=== PATIENT | male | born 1955 | race Caucasian/White ===

== ENCOUNTER 2022-05-12 09:53 | Emergency (ER) | payer OTHER, SELFPAY ==
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
[2022-05-12 09:56] VITALS: BP 148/79; PULSE 92; RESP 18; TEMP 36.6; O2SAT 98; BMI 24.3
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
[2022-05-12] MEDS: Acetaminophen 325 MG TABLET 975 MG PO (12:15)
== END 2022-05-12 13:45 | disposition home or self-care (01) ==
PROVIDERS: Emergency Provider Emergency Medicine Emergency Medical Services; PCP Nurse Practitioner Family
DX: S40.012A Contusion of left shoulder, initial encounter (principal); S20.212A Contusion of left front wall of thorax, initial encounter; M25.512 Pain in left shoulder; R51.9 Headache, unspecified; M54.2 Cervicalgia; R07.89 Other chest pain; V43.52XA Car driver injured in collision with other type car in traffic accident, initial encounter; Y93.9 Activity, unspecified; Y92.410 Unspecified street and highway as the place of occurrence of the external cause; Y99.9 Unspecified external cause status
CPT/HCPCS: 71250; 73030; 99283; 99284

== ENCOUNTER 2024-03-21 00:04 | Emergency (ER) | payer MEDICARE, OTHER, SELFPAY ==
--- NOTE | ~2024-03-21 | XR_ITS ---
EXAMINATION: XR CHEST CLINICAL INFORMATION: Chest and back pain COMPARISON: Chest CT on 05/12/2022 TECHNIQUE: 2 views of the chest were obtained. FINDINGS: No significant abnormality is noted involving the heart, lungs, mediastinum, bony thorax or soft tissues. XR/XR chest 2V IMPRESSION: Unremarkable examination. Electronically signed by: Alexus Arellano MD 03/21/2024 05:17 AM EDT RP
[2024-03-21 00:14] VITALS: BP 166/74; PULSE 85; O2SAT 95
[2024-03-21 00:18] VITALS: BP 121/70; PULSE 80; RESP 16; TEMP 36.6; O2SAT 98
--- NOTE | 2024-03-21 00:19 | MHC.EDTECH ---
pt arrived by ambulance. pt changed into a hospital gown Vital Signs completed
[2024-03-21 00:20] VITALS: BMI 25.9
[2024-03-21 02:54] VITALS: BP 122/73; PULSE 74; RESP 14; TEMP 36.5; O2SAT 96
--- NOTE | 2024-03-21 05:02 | ED_ITS ---
HPI - General Adult General Chief complaint: Back Pain/Injury Stated complaint: BACK/LEFT ARM PAIN// ALTERED MENTAL Time Seen by Provider: 03/21/24 05:02 Source: patient and EMS Limitations: altered mental status History of Present Illness ED Provider: Dr. Iraheta HPI narrative: Patient with anxiety and chronic pain who woke up with a severely dry mouth and got very upset and anxious and called an ambulance. Patient denies new medication, has suffered from dry mouth in the past but never this bad. Onset (ago): hour(s) Related Data Allergies Allergy/AdvReac Type Severity Reaction Status Date / Time No Known Allergies Allergy Verified 03/21/24 00:23 Review of Systems 2 Review of Systems: Yes all other systems are reviewed and are negative Neurologic: Denies Sensory deficit (Neuro) PMFSH Social History Social History Smoked in Last 30 Days: No Use of substances other than those prescribed or required for medical reasons: No Advance Directives: No Advance Directives Information Provided: No Do you have a plan to hurt others: No Plan Physical Exam ED Vital Signs: Vital Signs - 24 hr 03/21/24 00:18 03/21/24 02:54 03/21/24 05:30 Temperature 97.9 F 97.7 F 97.8 F Pulse Rate 80 74 75 Respiratory Rate 16 14 16 Blood Pressure 121/70 122/73 149/82 H Pulse Oximetry 98 96 98 Oxygen Delivery Method Room Air Room Air Room Air 03/21/24 06:35 Temperature 98.2 F Pulse Rate 80 Respiratory Rate 15 Blood Pressure 128/75 Pulse Oximetry 97 Oxygen Delivery Method Room Air BMI result Body Mass Index 25.9 Const Other: anxious male trying to clear his mouth Nutritional Appearance: average body habitus Orientation/consciousness: oriented to person and patient oriented x3 Limitations: no limitations HENMT Other: severely dry oral mucosa Head: Yes normal to inspection Ears: external ears normal General nose exam: Normal external nose present Throat: Yes posterior oropharynx normal Eyes General: appearance normal, both eyes and all related structures Neck Neck: Yes normal visual inspection Chest Chest palpation & inspection: normal inspection of the chest Resp Auscultation: clear to auscultation bilaterally Cardio Jugular venous distension: no JVD Rate: regular rate Rhythm: regular rhythm Heart sounds: S1 normal heart sound present and S2 normal heart sound present GI Inspection: Yes normal to inspection Palpation (GI): Soft to palpation, nontender and No hepatosplenomegaly present Auscultation: normal bowel sounds General: Yes no CVA tenderness Back/Spine/Pelvis Back: no CVA tenderness Skin General skin exam: no rashes or lesions noted Neuro General: oriented to person and patient oriented x3 Cranial nerves: Yes CN's II-XII intact bilaterally Motor exam (neuro): 5/5 motor strength present throughout Sensory Exam: No Sensory deficit (Neuro) Extrem General: Yes normal to inspection Psych Appearance: grossly normal Course Reevaluation(s) Reevaluation #1: Patient more relaxed, no evidence of pneumonia, cardiac ischemia will dc home Time: 07:11 Medical Decision Making Differential Diagnosis Differential Diagnoses: The differential diagnosis associated with the presentation includes (anxiety, cardiac ischemia, pneumonia, dry mouth, muscular skeletal pain) Admission/Observation Consideration of admission/observation: Escalation of care including admission/observation considered (upon arrival patient was considered for admission) Lab Data 03/21/24 05:21 03/21/24 05:21 Labs: Lab Results 03/21/24 Range/Units 05:21 WBC 5.8 (4.8-10.8) X10*3/uL RBC 4.43 L (4.60-5.80) X10*6/uL Hgb 14.4 (14.0-18.0) g/dl Hct 41.0 L (42.0-52.0) % MCV 92.6 (80.0-98.0) fL MCH 32.5 (27.0-33.0) pg MCHC 35.1 (31.0-36.0) g/dl RDW 12.8 (11.0-16.0) % Plt Count 177 (160-400) X10*3/uL MPV 8.8 L (9.4-12.4) fL Immature Gran % (Auto) 0.2 (0.0-0.4) % Neut % (Auto) 39.7 L (45-73) % Lymph % (Auto) 46.0 H (20-40) % [place] % (Auto) 10.5 (2-11) % Eos % (Auto) 3.1 (0-4) % Baso % (Auto) 0.5 (0-2) % Lymph # (Auto) 2.7 (1.2-4.9) X10*3/uL [place] # (Auto) 0.6 (0.1-1.2) X10*3/uL Eos # (Auto) 0.2 (0.0-0.4) X10*3/uL Baso # (Auto) 0.0 (0.0-0.2) X10*3/uL Abs Immat Gran (auto) 0.01 (0.00-0.03) X10*3/uL Absolute Neuts (auto) 2.3 (2.0-8.3) x10*3/uL Absolute Nucleated RBC 0.000 (0.0-0.012) X10*3/uL Nucleated RBC % (auto) 0.0 (0.0-0.2) /100WBC Sodium 140 (135-145) mmol/L Potassium 4.2 (3.3-5.1) mmol/L Chloride 107 (96-108) mmol/L Carbon Dioxide 22 (22-29) mmol/L Anion Gap 15 (12-20) BUN 26 H (9-16) mg/dL Creatinine 0.96 (0.5-1.4) mg/dL Estim Creat Clear Calc 74.9 Estimated GFR > 60 Random Glucose 125 H (60-115) mg/dL Calcium 9.4 (8.4-10.2) mg/dL Troponin I High Sens 7.6 (<3.5-35.0) ng/L Independent Interpretation I performed an independent interpretation of an: EKG (sinus 64, no st or twave changes) and Plain X-Ray (CXR: no infiltrate) Independent Historian Clinical information obtained from an independent historian. History obtained from or confirmed by: Spouse and EMS Prescription Management I considered prescription management with: Antibiotic (no evidence of pneumonia) Chronic Conditions Patient?s care impacted by: Other (psychiatric and anxiety) Discharge Plan Discharge Clinical Impression: Myalgia, Dry mouth Patient Disposition: Home, Self-Care Instructions: Dry Mouth (ED), Musculoskeletal Pain (ED) Referrals: Physician,Unknown J [Primary Care Provider] - 3 days Print Language: Mauritanian
--- NOTE | 2024-03-21 05:03 | ECG_ITS ---
Test Reason : CHEST AND BACK PAIN Blood Pressure : / mmHG Vent. Rate : 064 BPM Atrial Rate : 064 BPM P-R Int : 184 ms QRS Dur : 080 ms QT Int : 384 ms P-R-T Axes : 059 054 075 degrees QTc Int : 396 ms Normal sinus rhythm Normal ECG No previous ECGs available Referred By: James Iraheta Electronically Signed By:ULYSSES SHAFFER
[2024-03-21 05:25] LABS: Basophils Percent Auto 0.5 % (0-2); Eosinophils Absolute Auto 0.2 X10*3/uL (0.0-0.4); Eosinophils Percent Auto 3.1 % (0-4); Hemoglobin 14.4 g/dl (14.0-18.0); Imm Gran Abs Auto 0.01 X10*3/uL (0.00-0.03); Imm Gran Pct Auto 0.2 % (0.0-0.4); Lymphocytes Absolute Auto 2.7 X10*3/uL (1.2-4.9); MANUAL DIFF FLAG NO; Mean Corpuscular HGB Conc 35.1 g/dl (31.0-36.0); Mean Corpuscular Hemoglobin 32.5 pg (27.0-33.0); Mean Corpuscular Volume 92.6 fL (80.0-98.0); Mean Platelet Volume 8.8 fL (9.4-12.4); Monocytes Absolute Auto 0.6 X10*3/uL (0.1-1.2); Monocytes Percent Auto 10.5 % (2-11); Neutrophils Absolute Auto 2.3 x10*3/uL (2.0-8.3); Neutrophils Percent Auto 39.7 % (45-73); Platelet Count 177 X10*3/uL (160-400); Red Blood Count 4.43 X10*6/uL (4.60-5.80); Red Cell Distribution Width 12.8 % (11.0-16.0); White Blood Count 5.8 X10*3/uL (4.8-10.8)
[2024-03-21 05:30] VITALS: BP 149/82; PULSE 75; RESP 16; TEMP 36.6; O2SAT 98
[2024-03-21 05:36] LABS: Anion Gap 15 (12-20); Blood Urea Nitrogen 26 mg/dL (9-16); Calcium 9.4 mg/dL (8.4-10.2); Carbon Dioxide 22 mmol/L (22-29); Chloride 107 mmol/L (96-108); Creatinine Clr Calc Pharmacy 74.9; Estimated Glomerular Filt Rate > 60; Glucose Random 125 mg/dL (60-115); Potassium 4.2 mmol/L (3.3-5.1); Sodium 140 mmol/L (135-145)
[2024-03-21 05:44] LABS: Troponin-I High Sensitivity 7.6 ng/L (<3.5-35.0)
[2024-03-21 06:35] VITALS: BP 128/75; PULSE 80; RESP 15; TEMP 36.8; O2SAT 97
[2024-03-21 07:59] VITALS: BP 120/78; PULSE 78; RESP 14; TEMP 36.6; O2SAT 97
== END 2024-03-21 08:00 | disposition home or self-care (01) ==
PROVIDERS: Emergency Provider Emergency Medicine
DX: M54.50 Low back pain, unspecified (principal); M79.602 Pain in left arm; R41.82 Altered mental status, unspecified; R07.89 Other chest pain; Z79.899 Other long term (current) drug therapy
CPT/HCPCS: 36415; 71046; 80048; 84484; 85025; 93005; 99283; 99284

== ENCOUNTER 2024-07-31 09:55 | Outpatient (AMB) | payer MEDICARE, OTHER, SELFPAY ==
[2024-07-31 10:00] VITALS: BP 134/80; PULSE 76; O2SAT 99; BMI 27.1
--- NOTE | 2024-07-31 10:00 | MHC.OFFVIS ---
Vital Signs 07/31/24 10:00 Height 5 ft 10 in Weight 189 lb 2.506 oz BMI 27.1 BP 134/80 Blood Pressure Location Lt brachial Position Sitting Pulse 76 Pulse Source Pulse Oximeter Pulse Oximetry (%) 99 Oxygen Delivery Method Room Air Intake Visit Reasons: Colonoscopy Screening Intake Note: NEW PATIENT Reason; in office colo scrn Prior hx of colo/egd? Y via [facility] > 5 years ago. No records found on [employer] Concerns/Questions? No significant sx or concerns per pt. Pharmacy verified? [facility] Allergies No Known Allergies Allergy (Verified 07/31/24 10:01) HPI HPI Colonoscopy Screening: Details: 68 year old? male with past medical history of hyperlipidemia, chronic back pain, prostate atrophy, anxiety is here today for pre colonoscopy screening.? Last colonoscopy patient believes was in 2018.? ? Patient denies any gastrointestinal symptoms in the past or at present.? Denies any personal or family history of gastrointestinal disease, colon polyps, or CRC.? Denies history of difficulty with sedation or anesthesia in the past.? Negative for history of sleep apnea, however patient will be going for sleep study. Patient snores heavily when sleeping.? Denies any history of cardiac, renal, pulmonary, or hepatic disease.?? No history of infectious? diseases like hepatitis A, B, C, HIV or tuberculosis.? Patient is not on any anticoagulation [facility] Medical History (Updated 07/31/24 @ 10:20 by Lexie Talbot, [facility]) Anxiety disorder Chronic back pain Prostate atrophy Hernia of abdominal wall Hyperlipidemia Surgical History (Updated 07/31/24 @ 10:09 by Jimbo Molina, [facility]) H/O colonoscopy (~2017) Vasectomy status Review of Systems Const Denies weight gain and Denies weight loss ENT Reports no additional complaints, Denies dysphagia and Denies odynophagia Card Reports no additional complaints Resp Reports no additional complaints GI Denies abdominal pain, Denies belching, Denies melena, Denies bloating, Denies change in bowel habits, Denies dysphagia, Denies excessive flatus, Denies dyspepsia, Denies heartburn, Denies diarrhea, Denies loose stools, Denies nausea, Denies odynophagia and Denies vomiting Reports no additional complaints Musc Reports no additional complaints Neuro Reports no additional complaints Psych Reports no additional complaints Endo Reports no additional complaints Physical Exam Vital Signs: Last Vital Signs Pulse 76 07/31/24 10:00 BP 134/80 07/31/24 10:00 Pulse Ox 99 07/31/24 10:00 Oxygen Delivery Method Room Air 07/31/24 10:00 BMI result Body Mass Index 27.1 Const General: healthy appearing, no acute distress and well developed Nutritional Appearance: well nourished Orientation/consciousness: patient oriented x3 Resp Effort & Inspection: normal respiratory effort, able to speak in complete sentences, no tracheal deviation and symmetric chest movement Auscultation: clear to auscultation bilaterally Cardio Rate: regular rate GI Inspection: Yes normal to inspection and No distended Palpation (GI): Soft to palpation, not firm, nontender and No hepatosplenomegaly present Auscultation: normal bowel sounds General: Yes no CVA tenderness Back/Spine/Pelvis Back: no CVA tenderness Skin General skin exam: elasticity normal, turgor normal and dry skin Neuro General: patient oriented x3 Psych Appearance: grossly normal Mental Status: mental status grossly normal Assessment & Plan Assessment & Plan (1) Screen for colon cancer: Code(s): Z12.11 - Encounter for screening for malignant neoplasm of colon Plan Patient denies any GI, cardiac or respiratory symptoms.? Denies any issues with anesthesia in the past.? Denies any history of sleep apnea.? No history infectious diseases in the past or present.? Not on any anticoagulation therapy.? No family or personal history of colon cancer.? Patient denies melena, hematochezia, unintentional weight loss or ribbon like stools.? Discussed at length the pre-procedure,? prep, diet & medications as well as what to expect prior, during and after the procedure.?? Stressed the importance of good bowel prep.? Recommended the use of Vaseline or Calmoseptine OTC & baby wipes with bowel movements to promote comfort.? ?Patient verbalizes understanding and agrees to plan of care.? He was given the opportunity to ask questions and all questions answered.? We will see him after the procedure.? Medications: New bisacodyl (Dulcolax (bisacodyl)) take 4 tabs at noon the day before your colonoscopy 20 mg (4 x 5 mg) PO ONCE 1 day 4 tabs 0RF Z12.11 - Encounter for screening for malignant neoplasm of colon polyethylene glycol 3350 (Miralax) As directed by gastroenterology department at [facility] 238 grams PO ONCE 238 grams 0RF Z12.11 - Encounter for screening for malignant neoplasm of colon Coding Level of Care Code New Pt Level 3 (34699) Diagnoses Screen for colon cancer Z12.11 Time Spent (min) 40 Comment 30 minutes spent with patient and additional 10 minutes spent reviewing his records
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
--- OUTSIDE RECORDS SUMMARY | 2024-07-31 10:36 | XMS_ITS ---
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 Spec WBC RBC HGB HCT MCV MCH PLT 06/16/2023 10:27 BLOOD 7.13 5.16 16.0 48.0 93.0 31.0 247 09/11/2021 09:00 BLOOD 6.22 5.32 16.6 49.5 93.0 31.2 223 = CHEM 7 Results Collection DT Spec Sodium K+/Pot CL CO2 GLUCOSE BUN 06/16/2023 10:27 SERUM 138 5.0 102 28 109 H 16 09/11/2021 09:00 SERUM 138 4.5 102 27 102 H 16 = LIPID PANEL TREND Collection DT Spec CHOL HDL CHO/HDL LDL-c TRIG 06/16/2023 10:27 SERUM 221 H 40 5.5 129 260 H 09/11/2021 09:00 SERUM 244 H 40 6.1 162 H 212 H = = THYROID PANEL Collection DT Specimen Test Name Result Units Ref Range 06/16/2023 10:27 SERUM TSH 2.06 uIU/mL 0.35 - 5.00 = PSA Collection DT Specimen Test Name Result Units Ref Range 09/11/2021 09:00 SERUM PSA 1.60 ng/mL 0.00 - 4.00 = ==== ASSESSMENT AND PLAN ==== Active problems - Computerized Problem List is the source for the followin. Diarrhea - x 1 week, no red flags. suspect med side effect (started when increased sertaline from 50 to 100 mg). will do labs- LFTs, BMP, CBC. Advised to reduce sertaline back to 50 mg daily until issue resolves. Discussed allow 3-4 days of normal bowel movements prior to increasing back up to 100 mg daily. will coordnate with MH. 2. Nausea- mild- will add zofran. Continue with BRAT diet 3. increased urinartion- no burning. prev mildly elevated blood suagrs- will check u/a and HbA1c 4. Dehydration- recommend hydrating well ove rht enext 5-6 days. ==== HEALTH MAINTENANCE ==== Colonoscopy - up to date through PCP Aortic Aneurysm Screening - n/a never smoker Prostate screening - n/a - sees urology, s/p turp Tetanus: due every 10 years Pneumonia Vacccine: Flu Vaccine: due yearly Covid Vaccine: due yearly ==== FOLLOW UP ==== RTC if no improvement in 2 weeks VISIT TYPE: a MODERATE complexity visit where 30 - 45 minutes was spent in direct patient care, review of records and documentation. /monisha/ MELBA DONATO D.O. PHYSICIAN Signed: 08/02/2023 12:11 08/02/2023 ADDENDUM STATUS: COMPLETED please see A/P section- I reducued sertaline to 50 mg to see if helps with new onset diarrhea. /monisha/ MELBA DONATO D.O. PHYSICIAN Signed: 08/02/2023 12:11 Receipt Acknowledged By: * AWAITING SIGNATURE * JOSE F STILL TINA [facility] [place] [facility] Aug 02, 2023 11:23 AM PREVENTIVE MEDICIN E NURSING NOTE: LOCAL TITLE: CLINICAL REMINDERS/NURSING STANDARD TITLE: PREVENTIVE MEDICINE NURSING NOTE DATE OF NOTE: AUG 02, 2023@11:23 ENTRY DATE: AUG 02, 2023@11:23:46 AUTHOR: SEBAS BLACKMAN EXP COSIGNER: URGENCY: STATUS: COMPLETED Sexual Orientation: The patient thinks of their sexual orientation as: Straight or Heterosexual /iram BLACKMAN LPN License Practical Nurse Signed: 08/02/2023 11:24 SEBAS BLACKMAN [facility]
--- OUTSIDE RECORDS SUMMARY | 2024-07-31 10:36 | XMS_ITS | Encounter Summary ---
Author Name [facility] Organization [facility] Address [address] [place] [id number] Care Team Providers Care Merchandiser Seasonal Name Role Phone MELBA DOE Primary Care [...] PART B Feb 24, 2020 PART B [id number] LADONNA COLEMANTONYLYNNE PATIENT MEDICARE (WNR) MEDICARE (M) PART A November 24, 2019 PART A [id number] DOUGHERTY STAR COLEMAN PATIENT OFFICE OF [facility] HYBRID [facility]N BREEDER NO-FAULT INSURANCE NO FAULT May 12, 2022 NO FAULT [id number] STAR DOUGHERTY JR PATIENT FOR LIFE TFL* Feb 24, 2020 [id number] [phone] STAR DOUGHERTY JR PATIENT [facility] (WNR) TRICA RE(WN R) Jul 26, 2017 (WNR) [id number] [phone] ROSALES DOUGHERTY PATIENT Selected Encounter This section includes the information on record at [place] for the Encounter. Date/Time Encounter Type Encounter Description Reason Pro vider Source Aug 30, 2023 12:51 PM Outpatient Encounter PAIN CLINIC IHE Encounter Template Text not used by [place] Plan of Treatment: Future Appointments (+ 6 months) and Future Tests (+/- 45 days) The Plan of Treatment section includes future care activities for the [facility]. This section includes future appointments and future orders which are active, pending or scheduled. Future Appointments This section includes appointments that were scheduled to occur 6 months from the date of the Encounter, up to a maximum of 20 appointments. The data comes from all [place] treatment facilities. Appointment Date/Time Appointment Type Appointme nt Facility Name Aug 31, 2023 08:30 AM AMBULATORY - [facility] [place] [facility] Sep 22, 2023 08:30 AM AMBULATORY - [facility] [place] [facility] Sep 27, 2023 12:45 PM AMBULATORY - MEDICINE [facility] [place] [facility] Oct 14, 2023 09:30 AM AMBULATORY - [facility] [place] [facility] Oct 18, 2023 09:30 AM AMBULATORY [facility] [place] [facility] Oct 19, 2023 08:30 AM AMBULATORY - MEDICINE [facility] [place] [facility] Oct 20, 2023 08:30 AM AMBULATORY [facility] [place] [facility] Oct 21, 2023 09:30 AM AMBULATORY - [facility] [place] [facility] Oct 26, 2023 10:00 AM AMBULATORY - MEDICINE [facility] [place] [facility] Oct 26, 2023 12:30 PM AMBULATORY - MEDICINE [facility] [place] [facility] Nov 03, 2023 11:30 AM AMBULATORY - MEDICINE [facility] [place] [facility] Nov 17, 2023 08:30 AM AMBULATORY - [facility] [place] [facility] Nov 19, 2023 12:30 PM AMBULATORY - MEDICINE [facility] [place] [facility] December 02, 2023 03:00 PM AMBULATORY - MEDICINE [facility] [place] [facility] December 06, 2023 09:30 AM AMBULATORY - MEDICINE [facility] [place] [facility] December 09, 2023 01:30 PM AMBULATORY - MEDICINE [place] [facility] [place] [facility] December 09, 2023 03:00 PM AMBULATORY - MEDICINE [place] [facility] [place] [facility] December 14, 2023 10:30 AM AMBULATORY - MEDICINE [place] [facility] [place] [facility] December 14, 2023 01:00 PM AMBULATORY - MEDICINE [place] [facility] [place] [facility] December 16, 2023 08:30 AM AMBULATORY - MEDICINE [place] [facility] [place] [facility] Lab Results: +/- 30 days of the encounter This section includes the Chemistry and Hematology Lab Results on record with [place] for the patient. Radiology Reports and Pathology Reports are provided separately, in subsequent sections. Lab Results This section contains the Chemistry/Hematology Results that were resulted 30 days before or 30 daysafter the date of the Encounter. Date/Time Source Result Type Result - Unit Interpretation Reference Range Comment Aug 13, 2023 09:09 AM [facility] HLA-B27 (QU) Specimen Type: BLOOD Comment: Test Performed by [facility], [facility], [address] [place] [address] Paul Martinez M.D., Ph.D., Director of Laboratories , [facility] [id number] TEST PERFORMED AT: , Ordering Provider: MARIBEL SHAFER Report Released Date/Time: Aug 12, 2023 09:56 AM Reporting Lab: [facility] [address] [facility] [facility] [address] Performing Lab: [facility] [address] [address] HLA-B27 Negative Negative Aug 13, 2023 09:09 AM [facility] YAJAIRA SCREEN/TITER Specimen Type: SERUM No comment entered. Ordering Provider: MARIBEL SHAFER Report Released Date/Time: Aug 12, 2023 09:56 AM Reporting Lab: [facility] [address] [facility] [facility] [address] Performing Lab: [facility] [address] [facility] [address] YAJAIRA SCREEN NEG Aug 13, 2023 09:09 AM [facility] C REACTIVE PROTEIN (CRPH) Specimen Type: SERUM [...] Aug 12, 2023 09:56 AM Reporting Lab: [facility] [address] [facility] [facility] [address] Performing Lab: [facility] [address] [facility] [address] C REACTIVE PROTEIN (CRPH) 2.31 mg/L See eval. Aug 13, 2023 09:09 AM [facility] RHEUMATOID FACTOR Specimen Type: SERUM No comment entered. Ordering Provider: MARIBEL SHAFER Report Released Date/Time: Aug 12, 2023 09:56 AM Reporting Lab: [facility] [address] [facility] [facility] [address] Performing Lab: [facility] [address] [facility] [address] RHEUMATOID FACTOR <15 0-15 Aug 13, 2023 09:09 AM [facility] SED RATE, AUTOMATED Specimen Type: BLOOD No comment entered. Ordering Provider: MARIBEL SHAFER Report Released Date/Time: Aug 12, 2023 09:56 AM Reporting Lab: [facility] [address] [facility] [facility] [address] Performing Lab: [facility] [address] [facility] [facility] [address] SED RATE, AUTOMATED <1 mm/h 0-20 Aug 13, 2023 09:09 AM [facility] CPK Specimen Type: SERUM No comment entered. Ordering Provider: MARIBEL SHAFER Report Released Date/Time: Aug 12, 2023 09:56 AM Reporting Lab: [address] [address] Performing Lab: [address] [address] CPK 138 U/L 30-200 Aug 02, 2023 12:21 PM [facility] LIVER FUNCTION Specimen Type: SERUM No comment entered. Ordering Provider: MELBA DOE Report Released Date/Time: Aug 02, 2023 11:51 AM Reporting Lab: [address] [address] Performing Lab: [address] [address] PROTEIN,TOTAL 6.3 g/dL 6.0-8.3 ALBUMIN 4.0 g/dL 3.5-5.0 ALKALINE PHOSPHATASE 93 U/L 40-150 AST 28 U/L 5-34 ALT 32 U/L BILIRUBIN, TOTAL 0.4 mg/dL 0.2-1.2 Aug 02, 2023 12:21 PM [facility] BASIC METABOLIC PANEL (fasting) Specimen Type: SERUM No comment entered. Ordering Provider: MELBA DOE Report Released Date/Time: Aug 02, 2023 11:51 AM Reporting Lab: [address] [address] Performing Lab: [address] [address] UREA NITROGEN 15 mg/dL 7-25 GLUCOSE 91 mg/dL 65-100 SODIUM 140 mmol/L 135-145 POTASSIUM 3.9 mmol/L 3.5-5.0 CHLORIDE 104 mmol/L 100-110 CO2 28 meq/L 20-30 CREATININE, Serum 0.83 mg/dL 0.50-1.40 eGFR(CKD-EPI 2020) >90 mL/min >60 Aug 02, 2023 12:21 PM [facility] URINALYSIS CLEAN CATCH Specimen Type: URINE Comment: If Glucose = >500 and Ketones are positive, please alert the Physician. Ordering Provider: MELBA DOE Report Released Date/Time: Aug 02, 2023 11:51 AM Reporting Lab: [address] [address] Performing Lab: [address] [address] UA COLOR Yellow Yellow UA APPEARANCE Clear Clear UA GLUCOSE NEGATIVE mg/dL Negative UA KETONES NEGATIVE mg/dL Negative UA BLOOD NEGATIVE mg/dL Negative UA PROTEIN 30 mg/dL Negative UA NITRITE NEGATIVE mg/dL Negative UA BILIRUBIN NEGATIVE mg/dL Negative UA SPECIFIC GRAVITY 1.033 H 1.016-1.02 2 UA pH 6.0 5.0-9.0 UA UROBILINOGEN <2.0 mg/dL <2.0 UA LEUKOCYTE NEGATIVE Negative Aug 02, 2023 12:21 PM [facility] PSA Specimen Type: SERUM No comment entered. Ordering Provider: MELBA DOE Report Released Date/Time: Aug 02, 2023 11:51 AM Reporting Lab: [address] [address] Performing Lab: [address] [address] PSA 1.29 ng/mL 0.00-4.00 Aug 02, 2023 12:21 PM [facility] CBC Specimen Type: BLOOD No comment entered. Ordering Provider: MELBA DOE Report Released Date/Time: Aug 02, 2023 11:51 AM Reporting Lab: [address] [address] Performing Lab: [address] [address] WBC 5.93 10*3/uL 4.50-11.00 RBC 4.68 10*6/uL 4.23-5.66 HGB 14.6 g/dL 12.8-17 HCT 42.8 39.2-50.4 MCV 91.5 fL 82-99 MCHC 34.1 g/dL 30.8-35.1 PLT 211 10*3/uL 140-360 RDW-CV 12.9 12.0-16.0 MCH 31.2 pg 26.2-32.6 Aug 02, 2023 12:21 PM [facility] HEMOGLOBIN A1C PANEL Specimen Type: BLOOD Comment: [...] Aug 02, 2023 11:58 AM Reporting Lab: [address] [address] Performing Lab: [address] [address] HEMOGLOBIN A1C 5.7 H 4.0-5.6 Social History: Smoking Status (Most current) and Tobacco Use (All prior to encounter date) This section includes the most current, and the historical, smoking and tobacco- related health factors from the [place] facility where the Encounter took place. Current Smoking Status This section includes the most current smoking, or tobacco-related health factor, from the [place] facility where the Encounter took place. Date/Time Current Smoking Status Comment Nick kowalski Sep 04, 2021 02:56 PM VA-TOBACCO NEVER USED [facility] Encounter Notes: All associated encounter notes This section contains the clinical notes associated to the Encounter. Date/Time Encounter Note(s) Provider Source Aug 30, 2023 12:52 PM LETTERS: LOCAL TITLE: PATIENT LETTER (B) STANDARD TITLE: LETTERS DATE OF NOTE: AUG 30, 2023@12:52 ENTRY DATE: AUG 30, 2023@12:52:11 AUTHOR: ROCIO ROBERTS COSIGNER: URGENCY: STATUS: COMPLETED [facility] Toll Free Number [facility] scheduling can be reached at ext. [phone] [facility]- ext. [phone] [facility]- ext. [phone] [facility]- ext. [phone] AUG 30, 2023 STAR DOUGHERTY [address] [place], [place] [address] Dear STAR DOUGHERTY JR Thank you for choosing the [facility] ([place]) [facility] as your primary choice for health care. As a partner in your health care, we are contacting you in writing since we have been unsuccessful in our attempts to reach you to date. We want to assure you we are doing everything possible to schedule Veterans for their VA medical care appointments. Our records indicate you are due for an appointment in PAIN CLINIC IPT. If you would like to be seen, please contact [place] Call Center at ext. [phone] to schedule an appointment. Thank you for your service to our nation, and we look forward to hearing from you soon. Sincerely, [facility] [address] [facility] [address] [place] [address] [place] [address] [facility] [address] [facility] [address] [place] [address] [place] [address] ext. [phone] [facility] [address] [facility] [address] [place] [address] [place] [address] ext. [phone] [facility] [address] [place] [address] ext. [phone] ROCIO ROBERTS [facility] [place] [facility] Aug 30, 2023 12:51 PM ADMINISTRATIVE NOTE: LOCAL TITLE: ADMINISTRATIVE RECALL NOTE STANDARD TITLE: ADMINISTRATIVE NOTE DATE OF NOTE: AUG 30, 2023@12:51 ENTRY DATE: AUG 30, 2023@12:51:40 AUTHOR: ROCIO ROBERTS COSIGNER: URGENCY: STATUS: COMPLETED RTC orders: Unable to contact patient: Attempts to contact: 1st attempt: Left voicemail 2nd attempt: Letter mailed Disposition on Aug 3rd attempt: 4th attempt: pid 11/28/2023 /monisha/ ROCIO ROBERTS Signed: 08/30/2023 12:52 ROCIO ROBERTS [facility] TRN [facility]
--- OUTSIDE RECORDS SUMMARY | 2024-07-31 10:36 | XMS_ITS | Encounter Summary ---
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 Date/Time Encounter Type Encounter Description Reason Pro vider Source Aug 27, 2023 08:59 AM Outpatient Encounter PAIN CLINIC [facility] Encounter Template Text not used by ID Plan of Treatment: Future Appointments (+ 6 months) and Future Tests (+/- 45 days) The Plan of Treatment section includes future care activities for the [facility] This section includes future appointments and future orders which are active, pending or scheduled. Future Appointments This section includes appointments that were scheduled to occur 6 months from the date of the Encounter, up to a maximum of 20 appointments. The data comes from all ID treatment facilities. Appointment Date/Time Appointment Type Appointme [...] 02, 2023 03:00 PM AMBULATORY - MEDICINE [place] [facility] [place] [facility] December 06, 2023 09:30 AM AMBULATORY - MEDICINE ID [facility] [place] [facility] December 09, 2023 01:30 PM AMBULATORY - MEDICINE ID C [facility] [facility] December 09, 2023 03:00 PM AMBULATORY - MEDICINE ID [facility] [place] [facility] December 14, 2023 10:30 AM AMBULATORY - MEDICINE ID C [facility] [place] [facility] Lab Results: +/- 30 days of the encounter This section includes the Chemistry and Hematology Lab Results on record with ID for the patient. Radiology Reports and Pathology Reports are provided separately, in subsequent sections. Lab Results This section contains the Chemistry/Hematology Results that were resulted 30 days before or 30 daysafter the date of the Encounter. Date/Time Source Result Type Result - Unit Interpretation Reference Range Comment Aug 13, 2023 09:09 AM [facility] HLA-B27 (QU) Specimen Type: BLOOD Comment: Test Performed by [facility], [facility], [address] [place] [address] Paul Martinez M.D., Ph.D., Director of Laboratories , [place] [id number] TEST PERFORMED AT: , Ordering Provider: MARIBEL SHAFER Report Released Date/Time: Aug 12, 2023 09:56 AM Reporting Lab: [facility] WSN [facility] [address] [facility] [address] Performing Lab: [facility] [place] [facility] [address] [address] HLA-B27 Negative Negative Aug 13, 2023 09:09 AM [facility] YAJAIRA SCREEN/TITER Specimen Type: SERUM No comment entered. Ordering Provider: MARIBEL SHAFER Report Released Date/Time: Aug 12, 2023 09:56 AM Reporting Lab: [facility] [address] [facility] [address] Performing Lab: [facility] [address] [facility] [address] YAJAIRA SCREEN NEG Aug 13, 2023 09:09 AM [facility] C REACTIVE PROTEIN (CRPH) Specimen Type: [...] Aug 12, 2023 09:56 AM Reporting Lab: [facility] [address] [facility] [address] Performing Lab: [facility] [address] [facility] [address] C REACTIVE PROTEIN (CRPH) 2.31 mg/L See eval. Aug 13, 2023 09:09 AM [facility] RHEUMATOID FACTOR Specimen Type: SERUM No comment entered. Ordering Provider: MARIBEL SHAFER Report Released Date/Time: Aug 12, 2023 09:56 AM Reporting Lab: [facility] [address] [facility] [address] Performing Lab: [facility] [address] [facility] [address] RHEUMATOID FACTOR <15 0-15 Aug 13, 2023 09:09 AM [facility] SED RATE, AUTOMATED Specimen Type: BLOOD No comment entered. Ordering Provider: MARIBEL SHAFER Report Released Date/Time: Aug 12, 2023 09:56 AM Reporting Lab: [facility] [address] [facility] [address] Performing Lab: [facility] [address] [facility] [address] SED RATE, AUTOMATED <1 mm/h 0-20 Aug 13, 2023 09:09 AM [facility] CPK Specimen Type: SERUM No comment entered. Ordering Provider: MARIBEL SHAFER Report Released Date/Time: Aug 12, 2023 09:56 AM Reporting Lab: [address] [address] Performing Lab: [address] [address] CPK 138 U/L 30-200 Aug 02, 2023 12:21 PM [facility] LIVER FUNCTION Specimen Type: SERUM No comment entered. Ordering Provider: MELBA DOE Report Released Date/Time: Aug 02, 2023 11:51 AM Reporting Lab: [address] [address] Performing Lab: [address] [address] PROTEIN,TOTAL 6.3 g/dL 6.0-8.3 ALBUMIN 4.0 g/dL 3.5-5.0 ALKALINE PHOSPHATASE 93 U/L 40-150 AST 28 U/L 5-34 ALT 32 U/L BILIRUBIN, TOTAL 0.4 mg/dL 0.2-1.2 Aug 02, 2023 12:21 PM [facility] BASIC METABOLIC PANEL (fasting) Specimen Type: SERUM No comment entered. Ordering Provider: MELBA DOE Report Released Date/Time: Aug 02, 2023 11:51 AM Reporting Lab: [address] [address] Performing Lab: [address] [address] UREA NITROGEN 15 mg/dL 7-25 GLUCOSE 91 mg/dL 65-100 SODIUM 140 mmol/L 135-145 POTASSIUM 3.9 mmol/L 3.5-5.0 CHLORIDE 104 mmol/L 100-110 CO2 28 meq/L 20-30 CREATININE, Serum 0.83 mg/dL 0.50-1.40 eGFR(CKD-EPI 2020) >90 mL/min >60 Aug 02, 2023 12:21 PM [facility] URINALYSIS CLEAN CATCH Specimen Type: URINE Comment: If Glucose = >500 and Ketones are positive, please alert the Physician. Ordering Provider: MELBA DOE Report Released Date/Time: Aug 02, 2023 11:51 AM Reporting Lab: [facility] [address] [facility] [address] Performing Lab: [address] [address] UA COLOR Yellow Yellow UA APPEARANCE Clear Clear UA GLUCOSE NEGATIVE mg/dL Negative UA KETONES NEGATIVE mg/dL Negative UA BLOOD NEGATIVE mg/dL Negative UA PROTEIN 30 mg/dL Negative UA NITRITE NEGATIVE mg/dL Negative UA BILIRUBIN NEGATIVE mg/dL Negative UA SPECIFIC GRAVITY 1.033 H 1.016-1.02 2 UA pH 6.0 5.0-9.0 UA UROBILINOGEN <2.0 mg/dL <2.0 UA LEUKOCYTE NEGATIVE Negative Aug 02, 2023 12:21 PM [facility] PSA Specimen Type: SERUM No comment entered. Ordering Provider: MELBA DOE Report Released Date/Time: Aug 02, 2023 11:51 AM Reporting Lab: [address] [address] Performing Lab: [address] [address] PSA 1.29 ng/mL 0.00-4.00 Aug 02, 2023 12:21 PM [facility] CBC Specimen Type: BLOOD No comment entered. Ordering Provider: MELBA DOE Report Released Date/Time: Aug 02, 2023 11:51 AM Reporting Lab: [facility] [address] [facility] [address] Performing Lab: [address] [address] WBC 5.93 10*3/uL 4.50-11.00 RBC 4.68 10*6/uL 4.23-5.66 HGB 14.6 g/dL 12.8-17 HCT 42.8 39.2-50.4 MCV 91.5 fL 82-99 MCHC 34.1 g/dL 30.8-35.1 PLT 211 10*3/uL 140-360 RDW-CV 12.9 12.0-16.0 MCH 31.2 pg 26.2-32.6 Aug 02, 2023 12:21 PM [facility] HEMOGLOBIN A1C PANEL Specimen Type: BLOOD Comment: [...] Aug 02, 2023 11:58 AM Reporting Lab: [address] [address] Performing Lab: [address] [address] HEMOGLOBIN A1C 5.7 H 4.0-5.6 Social History: Smoking Status (Most current) and Tobacco Use (All prior to encounter date) This section includes the most current, and the historical, smoking and tobacco- related health factors from the ID facility where the Encounter took place. Current Smoking Status This section includes the most current smoking, or tobacco-related health factor, from the ID facility where the Encounter took place. Date/Time Current Smoking Status Comment Nick kowalski Sep 04, 2021 02:56 PM VA-TOBACCO NEVER USED [facility] Encounter Notes: All associated encounter notes This section contains the clinical notes associated to the Encounter. Date/Time Encounter Note(s) Provider Source Aug 27, 2023 08:59 AM TELEPHONE ENCOUNTE R NOTE: LOCAL TITLE: TELEPHONE NOTE/SPECIALTY CLINIC STANDARD TITLE: TELEPHONE ENCOUNTER NOTE DATE OF NOTE: AUG 27, 2023@08:59 ENTRY DATE: AUG 27, 2023@08:59:14 AUTHOR: ROCIO ROBERTS COSIGNER: URGENCY: STATUS: COMPLETED Called and spoke with pt to reminded them that they have a FTF appt with the Pain (IPT) clinics on 08/30/2023 from [phone]. Location was confirmed. /monisha/ ROCIO ROBERTS Signed: 08/27/2023 09:00 ROC[facility] ROBERTS [facility]
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
--- OUTSIDE RECORDS SUMMARY | 2024-07-31 10:36 | XMS_ITS | Continuity of Care Document ---
Author Name [facility] Organization [facility] Care Team Providers Care Hvac Service Tech Name Role Phone [facility] Unavailable Unavailable Problems Combined list of problems from Department of Defense and Veterans Affairs facilities. It does not include entries that were removed or entered in error. Problem Status Onset Date Problem Type Date of Resolution Comments Source Pain Active 2 Condition May 31, 2023 Entered By: BERTO PEARCE Comment: Bilateral shoulders, and neck [facility] Benign prostatic hyperplasia Active 5 Condition Jun 16, 2023 Entered By: MELBA DOE Comment: s/p turp- sees urology- Dr. Aviles [facility] Tinnitus Active 3 Condition May 31, 2023 Entered By: BERTO PEARCE Comment: L ear [facility] Anxiety Active 1 Condition [facility] Cervical radiculopathy Active Condition [facility] Exposure to potentially hazardous substance Active Condition Sep 23, 2023 Entered By: COL TA DAVISON Comment: Connect Snomed Code to ICD 10 Code refer to note dated 06/16/23 [facility] Diagnosis: ICD-10-CM F41.1 Generalized anxiety disorder Active Diagnosis [facility] Diagnosis: ICD-10-CM R52 Pain, unspecified Active Diagnosis [facility] Diagnosis: ICD-10-CM Z46.0 Encounter for fit/adjst of spectacles and contact lenses Active Diagnosis [facility] Diagnosis: ICD-10-CM H25.13 Age-related nuclear cataract, bilateral Active Diagnosis [facility] Diagnosis: ICD-10-CM G89.4 Chronic pain syndrome Active Diagnosis [facility] Diagnosis: ICD-10-CM M54.59 Other low back pain Active Diagnosis [facility] Diagnosis: ICD-10-CM Z23 Encounter for immunization Active Diagnosis [facility] Diagnosis: ICD-10-CM F41.9 Anxiety disorder, unspecified Active Diagnosis [facility] Diagnosis: ICD-10-CM M54.12 Radiculopathy, cervical region Active Diagnosis [facility] Diagnosis: ICD-10-CM Z73.3 Stress, not elsewhere classified Active Diagnosis [facility] Diagnosis: ICD-10-CM Z71.89 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ed counseling Active Diagnosis [facility] Diagnosis: ICD-10-CM Z72.3 Lack of physical exercise Active Diagnosis [facility] Diagnosis: ICD-10-CM M54.2 Cervicalgia Active Diagnosis [facility] Diagnosis: ICD-10-CM Z71.9 Counseling, unspecified Active Diagnosis [facility] Diagnosis: ICD-10-CM G89.29 Other chronic pain Active Diagnosis [facility] Diagnosis: ICD-10-CM R19.7 Diarrhea, unspecified Active Diagnosis [facility] Diagnosis: ICD-10-CM H93.19 Tinnitus, unspecified ear Active Diagnosis [facility] Diagnosis: ICD-10-CM I10 Essential (primary) hypertension Active Diagnosis [facility] Medications Combined list of outpatient medications from Department of Defense and Veterans Affairs facilities.Medications provided include 1) outpatient medications from the last 15 months, and 2) patient-reported medications. Medication Details Route Status Patient Instructions Prescription Expires Prescription Number Last Dispense Date Ordering Provider Order Date Order Qty Source ACETAMINOPH EN 500MG TAB TAKE TWO TABLETS BY MOUTH THREE TIMES DAILY NEEDED FOR PAIN ORAL ACTIVE 04/14/2025 [id number] CECE SHAFER S 2023 200 [facility] atorvastati n (U/D) 40 MG ORAL TAB TAKE ONE-HALF TABLET BY MOUTH ONCE DAILY FOR HIGH CHOLESTE ROL Active 01/06/2025 [id number] 4 FURCOLO, MELBA 2023 45 [facility] ATORVASTATI N CA 40MG TAB TAKE ONE-HALF TABLET BY MOUTH ONCE DAILY FOR HIGH CHOLESTE ROL ORAL ACTIVE 01/06/2025 [id number] 4 FURCOLO,T MITESH 2023 45 [facility] BUPRENORPHI NE 5MCG/HR PATCH APPLY 1 PATCH TO SKIN EVERY 7 DAYS FOR PAIN (REMOVE PATCH BEFORE APPLYING A NEW PATCH) TRANSD ERMAL ACTIVE 10/14/2024 [id number] 4 CUTLERCECE LLIAM S 2023 4 [facility] busPIRone (U/D) 10 MG ORAL TAB TAKE ONE TABLET BY MOUTH TWICE DAILY ANXIETY Active 09/22/2024 [id number] YANCY MOY 2023 120 [facility] busPIRone (U/D) 10 MG ORAL TAB TAKE ONE TABLET BY MOUTH ONCE DAILY Discont inued 08/31/2024 [id number] 4 YANCY MOY 2023 60 [facility] busPIRone (U/D) 10 MG ORAL TAB TAKE ONE TABLET BY MOUTH ONCE DAILY Discont inued 10/12/2023 [id number] YANCY MOY 2023 60 [facility] busPIRone (U/D) 10 MG ORAL TAB TAKE ONE TABLET BY MOUTH ONCE DAILY 10/12/2023 [id number] 4 YANCY MOY 2023 60 [facility] busPIRone (U/D) 10 MG ORAL TAB TAKE ONE TABLET BY MOUTH ONCE DAILY Discont inued 09/07/2023 [id number] 3 YANCY MOY 2023 60 [facility] busPIRone (U/D) 15 MG ORAL TAB TAKE ONE TABLET BY MOUTH TWICE DAILY ANXIETY Active 11/17/2024 [id number] 4 FARZANEH, YANCY 2023 120 [facility] BUSPIRONE HCL 10MG TAB TAKE TWO TABLETS BY MOUTH TWICE DAILY ANXIETY ORAL DISCONT INUED (EDIT) 03/02/2025 [id number] 4 FARZANEH, YANCY 2023 240 [facility] BUSPIRONE HCL 10MG TAB TAKE ONE TABLET BY MOUTH TWICE DAILY ANXIETY ORAL DISCONT INUED (EDIT) 09/22/2024 [id number] 4 FARZANEH, YANCY 2023 120 [facility] BUSPIRONE HCL 10MG TAB TAKE ONE TABLET BY MOUTH ONCE DAILY ORAL DISCONT INUED (EDIT) 08/31/2024 [id number] YANCY MOY 2023 60 [facility] BUSPIRONE HCL 10MG TAB TAKE ONE TABLET BY MOUTH ONCE DAILY ORAL DISCONT INUED 10/12/2023 [id number] FARZANEH YANCY 2023 60 [facility] BUSPIRONE HCL 10MG TAB TAKE ONE TABLET BY MOUTH ONCE DAILY ORAL DISCONT INUED 09/07/2023 [id number] FARZANEH YANCY 2022 60 [facility] BUSPIRONE HCL 15MG TAB TAKE ONE TABLET BY MOUTH TWICE DAILY ANXIETY ORAL DISCONT INUED (EDIT) 11/17/2024 [id number] 4 FARZANEH YANCY 2023 120 [facility] BUSPIRONE HCL 30MG TAB TAKE ONE TABLET BY MOUTH TWICE DAILY FOR ANXIETY ORAL ACTIVE 03/29/2025 [id number] 4 YANCY MOY 2023 60 [facility] CYCLOBENZAP RINE (U/D) 10 MG ORAL TAB TAKE ONE TABLET BY MOUTH ONCE DAILY NEEDED FOR MUSCLE SPASM Active 12/28/2024 [id number] MARIBEL SHAFER S 2023 90 [facility] CYCLOBENZAP RINE (U/D) 10 MG ORAL TAB TAKE ONE TABLET BY MOUTH ONCE DAILY NEEDED FOR MUSCLE SPASM Discont inued 11/03/2024 [id number] RENEEMARIBEL MAYER S 2023 30 [facility] cyclobenzap rine (U/D) 5 MG ORAL TAB TAKE ONE TABLET BY MOUTH TWICE DAILY NEEDED FOR MUSCLE SPASM Discont inued 10/01/2024 [id number] 4 NIMO GRAVES THI 2023 60 [facility] CYCLOBENZAP RINE HCL 10MG TAB TAKE ONE TABLET BY MOUTH ONCE DAILY NEEDED FOR MUSCLE SPASM ORAL ACTIVE 05/18/2025 [id number] FURCOLO,T MITESH 2023 90 [facility] CYCLOBENZAP RINE HCL 10MG TAB TAKE ONE TABLET BY MOUTH ONCE DAILY NEEDED FOR MUSCLE SPASM ORAL DISCONT INUED 12/28/2024 [id number] CECE SHAFER LLIAChapito S 2023 90 [facility] CYCLOBENZAP RINE HCL 10MG TAB TAKE ONE TABLET BY MOUTH ONCE DAILY NEEDED FOR MUSCLE SPASM ORAL DISCONT INUED (EDIT) 11/03/2024 [id number] 4 CECE SHAFER S 2023 30 [facility] CYCLOBENZAP RINE HCL 5MG TAB TAKE ONE TABLET BY MOUTH TWICE DAILY NEEDED FOR MUSCLE SPASM ORAL DISCONT INUED (EDIT) 10/01/2024 [id number] 4 TIERNEY GRAVES THI 2023 60 [facility] DICLOFENAC NA 1% GEL,TOP APPLY 2 GRAMS TOPICALL Y FOUR TIMES A DAY FOR OSTEOART HRITIS - USE DOSING CARD PROVIDED IN BOX TOPICA L ACTIVE 01/06/2025 [id number] 4 FURCOLO,T MITESH 2023 100 [facility] Diclofenac Sodium 0.01mg/mg, Gel/Jelly, Topical APPLY 2 GRAMS TOPICALL Y FOUR TIMES A DAY FOR OSTEOART HRITIS - USE DOSING CARD PROVIDED IN BOX Active 01/06/2025 [id number] 4 MELBA DOE 2023 100 [facility] Doxycycline Hyclate ([employer]) 500 CAPSULE in 1 BOTTLE Cancele d [id number] : 2023 0 Pharmac y Data Transac tion Service Facilit y DOXYCYCLINE HYCLATE (doxycyclin e hyclate), 100 MG, CAPSULE, ORAL, [employer], 500 ea. BOTTLE Cancele d [id number] : 2023 0 Pharmac y Data Transac tion Service Facilit y Fluoxetine (Prozac) Capsule Conventiona l 20 mg Oral TAKE THREE CAPSULES BY MOUTH ONCE DAILY FOR DEPRESSI ON AND ANXIETY Active 01/19/2025 [id number] 4 YANCY MOY 2023 270 [facility] Fluoxetine (Prozac) Capsule Conventiona l 20 mg Oral TAKE THREE CAPSULES BY MOUTH ONCE DAILY FOR DEPRESSI ON AND ANXIETY Discont inued 08/31/2024 [id number] 4 YANCY MOY 2023 180 [facility] Fluoxetine (Prozac) Capsule Conventiona l 20 mg Oral TAKE ONE CAPSULE BY MOUTH ONCE DAILY FOR 7 DAYS, THEN TAKE TWO CAPSULES ONCE DAILY FOR DEPRESSI ON AND ANXIETY Discont inued 10/12/2023 [id number] 4 YANCY MOY 2023 113 [facility] FLUOXETINE HCL 20MG CAP TAKE TWO CAPSULES BY MOUTH ONCE DAILY FOR DEPRESSI ON AND ANXIETY ORAL ACTIVE 05/23/2025 [id number] 4 YANCY MOY 2023 60 [facility] FLUOXETINE HCL 20MG CAP TAKE THREE CAPSULES BY MOUTH ONCE DAILY FOR DEPRESSI ON AND ANXIETY ORAL DISCONT INUED (EDIT) 01/19/2025 [id number] 4 YANCY MOY 2023 270 [facility] FLUOXETINE HCL 20MG CAP TAKE THREE CAPSULES BY MOUTH ONCE DAILY FOR DEPRESSI ON AND ANXIETY ORAL DISCONT INUED 08/31/2024 [id number] FARZANEH, YANCY 2023 180 [facility] FLUOXETINE HCL 20MG CAP TAKE ONE CAPSULE BY MOUTH ONCE DAILY FOR 7 DAYS, THEN TAKE TWO CAPSULES ONCE DAILY FOR DEPRESSI ON AND ANXIETY ORAL DISCONT INUED (EDIT) 10/12/2023 [id number] 4 FARZANEH, YANCY 2023 113 [facility] Gabapentin ([employer]) Tablet 600 mg Oral TAKE ONE-HALF TABLET BY MOUTH ONCE DAILY NEEDED ANXIETY- OFF LABEL Discont inued 11/17/2024 [id number] 4 YANCY MOY 2023 15 [facility] Gabapentin ([employer]) Tablet 600 mg Oral TAKE ONE-HALF TABLET BY MOUTH AT BEDTIME FOR 7 DAYS, THEN TAKE ONE-HALF TABLET TWICE DAILY FOR 7 DAYS, THEN TAKE ONE-HALF TABLET THREE TIMES A DAY ANXIETY 11/19/2023 [id number] 4 YANCY MOY 2023 35 [facility] GABAPENTIN 600MG TAB TAKE ONE-HALF TABLET BY MOUTH ONCE DAILY NEEDED ANXIETY- OFF LABEL ORAL DISCONT INUED BY PROVIDE R 11/17/2024 [id number] 4 FARZANEH YANCY 2023 15 [facility] GABAPENTIN 600MG TAB TAKE ONE-HALF TABLET BY MOUTH AT BEDTIME FOR 7 DAYS, THEN TAKE ONE-HALF TABLET TWICE DAILY FOR 7 DAYS, THEN TAKE ONE-HALF TABLET THREE TIMES A DAY ANXIETY ORAL DISCONT INUED (EDIT) 11/19/2023 [id number] 4 FARZANEH YANCY 2023 35 [facility] Lidocaine (Lidoderm Eq.) Transdermal System 5% Topical APPLY 1 PATCH TOPICALL Y ONCE DAILY NEEDED FOR NERVE PAIN (LEAVE PATCH ON FOR 12 HOURS, THEN REMOVE PATCH) Active 01/06/2025 [id number] 4 FURCOLO, MELBA 2023 90 [facility] LIDOCAINE 5% PATCH APPLY 1 PATCH TOPICALL Y ONCE DAILY NEEDED FOR NERVE PAIN (LEAVE PATCH ON FOR 12 HOURS, THEN REMOVE PATCH) TOPICA L ACTIVE 01/06/2025 [id number] 4 FURCOLO,T MITESH 2023 90 [facility] LORazepam (U/D) 0.5 MG ORAL TAB TAKE ONE TABLET BY MOUTH ONCE DAILY NEEDED FOR ANXIETY/ PANIC 03/02/2024 [id number] 4 YANCY MOY 2023 30 [facility] LORazepam (U/D) 0.5 MG ORAL TAB TAKE ONE TABLET BY MOUTH ONCE DAILY NEEDED FOR ANXIETY/ PANIC 03/02/2024 [id number] 4 YANCY MOY 2023 30 [facility] LORazepam (U/D) 0.5 MG ORAL TAB TAKE ONE TABLET BY MOUTH ONCE DAILY NEEDED FOR ANXIETY/ PANIC Discont inued 01/09/2024 [id number] YANCY MOY 2023 30 [facility] LORAZEPAM 0.5MG TAB TAKE ONE TABLET BY MOUTH ONCE DAILY NEEDED ANXIETY ORAL ACTIVE 09/22/2024 [id number] 4 YANCY MOY 2023 30 [facility] LORAZEPAM 0.5MG TAB TAKE ONE TABLET BY MOUTH ONCE DAILY NEEDED FOR ANXIETY/ PANIC ORAL DISCONT INUED 01/09/2024 [id number] 3 YANCY MOY 2022 30 [facility] LORAZEPAM 0.5MG TAB TAKE ONE TABLET BY MOUTH ONCE DAILY NEEDED FOR ANXIETY/ PANIC ORAL 03/02/2024 [id number] 4 YANCY MOY 2023 30 [facility] MELOXICAM (U/D) 15 MG ORAL TAB TAKE ONE TABLET BY MOUTH ONCE DAILY FOR JOINT INFLAMMA TION (TAKE WITH FOOD) Active 11/03/2024 [id number] MARIBEL SHAFER 2023 30 [facility] MELOXICAM 15MG TAB TAKE ONE TABLET BY MOUTH ONCE DAILY FOR JOINT INFLAMMA TION (TAKE WITH FOOD) ORAL ACTIVE 04/25/2025 [id number] NADERT MITESH 2023 30 [facility] MELOXICAM 15MG TAB TAKE ONE TABLET BY MOUTH ONCE DAILY FOR JOINT INFLAMMA TION (TAKE WITH FOOD) ORAL DISCONT INUED 11/03/2024 [id number] CECE SHAFER MILTON S 2023 30 [facility] MIRTAZAPINE 30MG TAB TAKE ONE TABLET BY MOUTH AT BEDTIME SLEEP ORAL ACTIVE 07/12/2025 [id number] 4 YANCY MOY 2023 30 [facility] MIRTAZAPINE 30MG TAB TAKE ONE-HALF TABLET BY MOUTH AT BEDTIME SLEEP FOR DEPRESSI ON/MOOD ORAL DISCONT INUED (EDIT) 06/21/2025 [id number] 4 YANCY MOY 2023 15 [facility] ONDANSETRON (U/D) 8 MG ORAL TAB TAKE ONE TABLET BY MOUTH TWICE DAILY NEEDED 09/01/2023 [id number] 4 MELBA DOE 2023 10 [facility] ONDANSETRON HCL 8MG TAB TAKE ONE TABLET BY MOUTH TWICE DAILY NEEDED ORAL 09/01/2023 [id number] 4 Ken DOE MITESH 2023 10 [facility] PREGABALIN 100MG CAP,ORAL TAKE ONE CAPSULE BY MOUTH TWICE DAILY FOR ANXIETY ORAL ACTIVE 12/21/2024 [id number] 4 YANCY MOY 2023 60 [facility] PREGABALIN 50MG CAP,ORAL TAKE ONE CAPSULE BY MOUTH TWICE DAILY NEEDED FOR ANXIETY ORAL DISCONT INUED (EDIT) 11/22/2024 [id number] 4 YANCY MOY 2023 60 [facility] Quetiapine (Seroquel Starter Pack) Tablet 100 mg Oral TAKE ONE TABLET BY MOUTH AT BEDTIME ANXIETY AND SLEEP (OFF LABEL) Active 01/19/2025 [id number] 4 FARZANEH YANCY 2023 30 [facility] Quetiapine (Seroquel Starter Pack) Tablet 25mg Oral TAKE ONE TABLET BY MOUTH AT BEDTIME Discont inued 02/13/2024 [id number] 4 FARZANEH, YANCY 2023 30 [facility] Quetiapine (Seroquel Starter Pack) Tablet 25mg Oral TAKE ONE TABLET BY MOUTH AT BEDTIME FOR 7 DAYS, THEN TAKE TWO TABLETS AT BEDTIME ANXIETY- OFF LABEL Discont inued 12/27/2023 [id number] 4 FARZANEH, YANCY 2023 73 [facility] QUETIAPINE FUMARATE 100MG TAB TAKE ONE TABLET BY MOUTH AT BEDTIME ANXIETY AND SLEEP (OFF LABEL) ORAL DISCONT INUED BY PROVIDE R 03/29/2025 [id number] 4 FARZANEH, YANCY 2023 30 [facility] QUETIAPINE FUMARATE 100MG TAB TAKE ONE TABLET BY MOUTH AT BEDTIME ANXIETY AND SLEEP (OFF LABEL) ORAL DISCONT INUED (EDIT) 01/19/2025 [id number] 4 FARZANEH YANCY 2023 30 [facility] QUETIAPINE FUMARATE 200MG TAB TAKE ONE TABLET BY MOUTH AT BEDTIME ANXIETY AND SLEEP (OFF LABEL) ORAL DISCONT INUED (EDIT) 03/02/2025 [id number] 4 YANCY MOY 2023 30 [facility] QUETIAPINE FUMARATE 25MG TAB TAKE ONE TABLET BY MOUTH AT BEDTIME ORAL DISCONT INUED (EDIT) 02/13/2024 [id number] 4 FARZANEH YANCY 2023 30 [facility] QUETIAPINE FUMARATE 25MG TAB TAKE ONE TABLET BY MOUTH AT BEDTIME FOR 7 DAYS, THEN TAKE TWO TABLETS AT BEDTIME ANXIETY- OFF LABEL ORAL DISCONT INUED BY PROVIDE R 12/27/2023 [id number] 4 FARZANEH, YANCY 2023 73 [facility] QUETIAPINE FUMARATE 50MG TAB TAKE THREE TABLETS BY MOUTH AT BEDTIME ANXIETY AND SLEEP (OFF LABEL) ORAL DISCONT INUED (EDIT) 02/02/2025 [id number] 4 FARZANEH, YANCY 2023 90 [facility] sertraline (U/D) 100 MG ORAL TAB TAKE ONE-HALF TABLET BY MOUTH ONCE DAILY FOR 7 DAYS, THEN TAKE ONE TABLET ONCE DAILY Discont inued 10/07/2023 [id number] 3 FARZANEH YANCY 2023 87 [facility] SERTRALINE HCL 100MG TAB TAKE ONE-HALF TABLET BY MOUTH ONCE DAILY FOR 7 DAYS, THEN TAKE ONE TABLET ONCE DAILY ORAL DISCONT INUED 10/07/2023 [id number] YANCY MOY 2022 87 [facility] Immunizations Combined list of available immunizations from the Department of Defense and Veterans Affairs facilities. Immunization Series Date Given Administered By Site Reaction Lot Number CVX Code Drug Engineering Analyst Status Comments Source COVID-19 (MODERNA), MRNA, LNP-S, PF, 50 MCG/0.5 ML (AGES 12+ YEARS) 2023 ASYA ROCHA LEFT DELTO ID [id number] 312 complet ed [facility] INFLUENZA, HIGH-DOSE, TRIVALENT, PF 2023 RAMONE ABDALLA RIGHT DELTO ID [id number] 135 complet ed [facility] INFLUENZA, UNSPECIFIED FORMULATION 2022 88 complet ed [facility] [place] [facility] INFLUENZA VACCINE, QUADRIVALENT, ADJUVANTED 2021 205 complet ed [facility] INFLUENZA, UNSPECIFIED FORMULATION 2020 88 complet ed [facility] INFLUENZA, INJECTABLE, QUADRIVALENT, PRESERVATIVE FREE 2017 150 complet ed Partner: [facility]. Administe red by: [place] [employer] [facility] Clinician (NPI=Not Provided) . Partner 6 Lot#: [id number] Mfr: GlaxoSmit hKline [facility] ZOSTER LIVE 2011 121 complet ed [facility] Results Combined list of recent chemistry, hematology and other laboratory results from Department of Defense and Veterans Affairs, ranging from 15 months to all on record, depending upon the facility. Order Name Results Value Reference Range Date Interpretation Specimen Comments Source METHADONE SCREEN METHADONE [PRESENCE] IN URINE BY SCREEN METHOD None detect ed(Neg ative) 07/04 L Specimen Type: URINE Comment: NATO test are qualitative , any L or H flags only indicate a [facility] alert was sent. Ordering Provider: ANJELICA LOYA Report Released Date/Time: Apr 20, 2024 08:58 AM Reporting Lab: [facility] [place] [facility] [address] [address] Performing Lab: [facility] [place] [facility] [address] [facility] [facility] [address] [facility] [place] [facility] ALCOHOL, ETHYL URINE PANEL ETHANOL [MASS/VOLUM E] IN URINE NONE-D ETECTE Dmg/dL - 10 07/04 Specimen Type: URINE Comment: Urine with Cr <5 is diluted or substituted . Cr between 5 and 20 is very dilute. Urine with SG of 1.001 or less is diluted or substituted . SG of 1.003 or less is very dilute. Urine with a pH <3 or >11 has been adulterated and is unsuitable for testing by our current method. Urine with pH between 3 and 4 OR 10 and 11 may have been adulterated . Ordering Provider: ANJELICA LOYA Report Released Date/Time: Apr 20, 2024 08:58 AM Reporting Lab: [facility] [place] [facility] [address] [facility] [address] Performing Lab: [facility] [address] [facility] [address] [facility] ALCOHOL, ETHYL URINE PANEL PH OF URINE 5.4 [pH] 4 - 10 07/04 Specimen Type: URINE Comment: Urine with Cr <5 is diluted or substituted . Cr between 5 and 20 is very dilute. Urine with SG of 1.001 or less is diluted or substituted . SG of 1.003 or less is very dilute. Urine with a pH <3 or >11 has been adulterated and is unsuitable for testing by our current method. Urine with pH between 3 and 4 OR 10 and 11 may have been adulterated . Ordering Provider: ANJELICA LOYA Report Released Date/Time: Apr 20, 2024 08:58 AM Reporting Lab: [facility] [place] [place] [address] [address] Performing Lab: [facility] [place] [address] [address] [facility] ALCOHOL, ETHYL URINE PANEL CREATININE [MASS/VOLUM E] IN URINE 123.15 mg/dL 07/04 Specimen Type: URINE Comment: Urine with Cr <5 is diluted or substituted . Cr between 5 and 20 is very dilute. Urine with SG of 1.001 or less is diluted or substituted . SG of 1.003 or less is very dilute. Urine with a pH <3 or >11 has been adulterated and is unsuitable for testing by our current method. Urine with pH between 3 and 4 OR 10 and 11 may have been adulterated . Ordering Provider: ANJELICA LOYA Report Released Date/Time: Apr 20, 2024 08:58 AM Reporting Lab: [facility] [place] [address] [address] Performing Lab: [facility] [place] [address] [address] [facility] ALCOHOL, ETHYL URINE PANEL SPECIFIC GRAVITY OF URINE 1.026 1.003 - 1.020 07/04 H Specimen Type: URINE Comment: Urine with Cr <5 is diluted or substituted . Cr between 5 and 20 is very dilute. Urine with SG of 1.001 or less is diluted or substituted . SG of 1.003 or less is very dilute. Urine with a pH <3 or >11 has been adulterated and is unsuitable for testing by our current method. Urine with pH between 3 and 4 OR 10 and 11 may have been adulterated . Ordering Provider: ANJELICA LOYA Report Released Date/Time: Apr 20, 2024 08:58 AM Reporting Lab: [facility] [address] [address] Performing Lab: [facility]ITALTRN [facility]USUSE[address] [address] [facility] AMPHETAMI GLORIA SCREEN PANEL AMPHETAMINE S [PRESENCE] IN URINE NONE-D ETECTE D - 1000 07/04 Specimen Type: URINE Comment: Urine with Cr <5 is diluted or substituted . Cr between 5 and 20 is very dilute. Urine with SG of 1.001 or less is diluted or substituted . SG of 1.003 or less is very dilute. Urine with a pH <3 or >11 has been adulterated and is unsuitable for testing by our current method. Urine with pH between 3 and 4 OR 10 and 11 may have been adulterated . Ordering Provider: ANJELICA LOYA Report Released Date/Time: Apr 20, 2024 08:58 AM Reporting Lab: [facility]AMPUSUSE[address] [address] Performing Lab: [facility] CAMPUSUSE[address] [address] [facility]HETAMI GLORIA SCREEN PANEL PH OF URINE 5.4 [pH] 4 - 10 07/04 Specimen Type: URINE Comment: Urine with Cr <5 is diluted or substituted . Cr between 5 and 20 is very dilute. Urine with SG of 1.001 or less is diluted or substituted . SG of 1.003 or less is very dilute. Urine with a pH <3 or >11 has been adulterated and is unsuitable for testing by our current method. Urine with pH between 3 and 4 OR 10 and 11 may have been adulterated . Ordering Provider: ANJELICA LOYA Report Released Date/Time: Apr 20, 2024 08:58 AM Reporting Lab: [facility]AMPUSUSE[address] [id number] Performing Lab: [address] [address] [facility] AMPHETAMI GLORIA SCREEN PANEL CREATININE [MASS/VOLUM E] IN URINE 123.15 mg/dL 20 07/04 Specimen Type: URINE Comment: Urine with Cr <5 is diluted or substituted . Cr between 5 and 20 is very dilute. Urine with SG of 1.001 or less is diluted or substituted . SG of 1.003 or less is very dilute. Urine with a pH <3 or >11 has been adulterated and is unsuitable for testing by our current method. Urine with pH between 3 and 4 OR 10 and 11 may have been adulterated . Ordering Provider: ANJELICA LOYA Report Released Date/Time: Apr 20, 2024 08:58 AM Reporting Lab: [address] [address] Performing Lab: [address] [address] [facility] AMPHETAMI GLORIA SCREEN PANEL SPECIFIC GRAVITY OF URINE 1.026 1.003 - 1.020 07/04 H Specimen Type: URINE Comment: Urine with Cr <5 is diluted or substituted . Cr between 5 and 20 is very dilute. Urine with SG of 1.001 or less is diluted or substituted . SG of 1.003 or less is very dilute. Urine with a pH <3 or >11 has been adulterated and is unsuitable for testing by our current method. Urine with pH between 3 and 4 OR 10 and 11 may have been adulterated . Ordering Provider: ANJELICA LOYA Report Released Date/Time: Apr 20, 2024 08:58 AM Reporting Lab: [address] [address] Performing Lab: [address] [address] [facility] BENZODIAZ EPINES SCREEN PANEL BENZODIAZEP MICA [PRESENCE] IN URINE BY SCREEN METHOD NONE-D ETECTE D - 200 07/04 Specimen Type: URINE Comment: Urine with Cr <5 is diluted or substituted . Cr between 5 and 20 is very dilute. Urine with SG of 1.001 or less is diluted or substituted . SG of 1.003 or less is very dilute. Urine with a pH <3 or >11 has been adulterated and is unsuitable for testing by our current method. Urine with pH between 3 and 4 OR 10 and 11 may have been adulterated . Ordering Provider: ANJELIAC LOYA S Report Released Date/Time: Apr 20, 2024 08:58 AM Reporting Lab: [facility] [place] [address] [address] Performing Lab: [address] [address] [facility] BENZODIAZ EPINES SCREEN PANEL PH OF URINE 5.4 [pH] 4 - 10 07/04 Specimen Type: URINE Comment: Urine with Cr <5 is diluted or substituted . Cr between 5 and 20 is very dilute. Urine with SG of 1.001 or less is diluted or substituted . SG of 1.003 or less is very dilute. Urine with a pH <3 or >11 has been adulterated and is unsuitable for testing by our current method. Urine with pH between 3 and 4 OR 10 and 11 may have been adulterated . Ordering Provider: ANJELICA LOYA Report Released Date/Time: Apr 20, 2024 08:58 AM Reporting Lab: [facility]ITALRCL[facility]ITALTRN [place] [address] [address] Performing Lab: [facility]ENTERUSE[address] [address] [facility] BENZODIAZ EPINES SCREEN PANEL CREATININE [MASS/VOLUM E] IN URINE 123.15 mg/dL 07/04 Specimen Type: URINE Comment: Urine with Cr <5 is diluted or substituted . Cr between 5 and 20 is very dilute. Urine with SG of 1.001 or less is diluted or substituted . SG of 1.003 or less is very dilute. Urine with a pH <3 or >11 has been adulterated and is unsuitable for testing by our current method. Urine with pH between 3 and 4 OR 10 and 11 may have been adulterated . Ordering Provider: ANJELICA LOYA S Report Released Date/Time: Apr 20, 2024 08:58 AM Reporting Lab: [facility]ITALRL WSTRN [place] [address] [address] Performing Lab: [facility]ITALRL WSTRN [facility]PITALCHUSETS [address] [address] [facility]ITALRD.W. [facility]PITALN [place] [facility] BENZODIAZ EPINES SCREEN PANEL SPECIFIC GRAVITY OF URINE 1.026 1.003 - 1.020 07/04 H Specimen Type: URINE Comment: Urine with Cr <5 is diluted or substituted . Cr between 5 and 20 is very dilute. Urine with SG of 1.001 or less is diluted or substituted . SG of 1.003 or less is very dilute. Urine with a pH <3 or >11 has been adulterated and is unsuitable for testing by our current method. Urine with pH between 3 and 4 OR 10 and 11 may have been adulterated . Ordering Provider: ANJELICA LOYA Report Released Date/Time: Apr 20, 2024 08:58 AM Reporting Lab: [facility]ITALRL [place] [place] [address] [address] Performing Lab: [facility] HOSPITALRL WSTRN [facility]USUSETS [address] [address] [facility]ERN [facility] CAMPUSUSE [facility] FENTANYL SCREEN PANEL FENTANYL [PRESENCE] IN URINE BY SCREEN METHOD NONE-D ETECTE Dng/mL 07/04 Specimen Type: URINE Comment: Urine with Cr <5 is diluted or substituted . Cr between 5 and 20 is very dilute. Urine with SG of 1.001 or less is diluted or substituted . SG of 1.003 or less is very dilute. Urine with a pH <3 or >11 has been adulterated and is unsuitable for testing by our current method. Urine with pH between 3 and 4 OR 10 and 11 may have been adulterated . FENTANYL CONFIRMATIO N NOT SENT BY LAB. Ordering Provider: ANJELICA LOYA S Report Released Date/Time: Apr 20, 2024 08:58 AM Reporting Lab: [facility]ITALRL [facility]N [place] [address] [address] Performing Lab: [facility] HOSPITALRD.W. [facility] HOSPITALN [facility] CAMPUSUSETS [address] [address] [facility] FENTANYL SCREEN PANEL PH OF URINE 5.4 [pH] 4 - 10 07/04 Specimen Type: URINE Comment: Urine with Cr <5 is diluted or substituted . Cr between 5 and 20 is very dilute. Urine with SG of 1.001 or less is diluted or substituted . SG of 1.003 or less is very dilute. Urine with a pH <3 or >11 has been adulterated and is unsuitable for testing by our current method. Urine with pH between 3 and 4 OR 10 and 11 may have been adulterated . FENTANYL CONFIRMATIO N NOT SENT BY LAB. Ordering Provider: ANJELICA LOYA Report Released Date/Time: Apr 20, 2024 08:58 AM Reporting Lab: [address] [address] Performing Lab: [address] [address] [facility] FENTANYL SCREEN PANEL CREATININE [MASS/VOLUM E] IN URINE 123.70 mg/dL 07/04 Specimen Type: URINE Comment: Urine with Cr <5 is diluted or substituted . Cr between 5 and 20 is very dilute. Urine with SG of 1.001 or less is diluted or substituted . SG of 1.003 or less is very dilute. Urine with a pH <3 or >11 has been adulterated and is unsuitable for testing by our current method. Urine with pH between 3 and 4 OR 10 and 11 may have been adulterated . FENTANYL CONFIRMATIO N NOT SENT BY LAB. Ordering Provider: ANJELICA LOYA Report Released Date/Time: Apr 20, 2024 08:58 AM Reporting Lab: [facility] Sol[address]emes[address] [address] Performing Lab: [address] [address] [facility] FENTANYL SCREEN PANEL SPECIFIC GRAVITY OF URINE 1.026 1.003 - 1.020 07/04 H Specimen Type: URINE Comment: Urine with Cr <5 is diluted or substituted . Cr between 5 and 20 is very dilute. Urine with SG of 1.001 or less is diluted or substituted . SG of 1.003 or less is very dilute. Urine with a pH <3 or >11 has been adulterated and is unsuitable for testing by our current method. Urine with pH between 3 and 4 OR 10 and 11 may have been adulterated . FENTANYL CONFIRMATIO N NOT SENT BY LAB. Ordering Provider: ANJELICA LOYA S Report Released Date/Time: Apr 20, 2024 08:58 AM Reporting Lab: [facility]ITALRCL[facility]PITALTRN [place] [address] [address] Performing Lab: [facility] HOSPITALRCLAY COUNTY HOSPITALTRN [facility] CAMPUSUSETS [address] [address] [facility]ERN [place] [facility] BUPRENORP SABINE SCREEN PANEL BUPRENORPHI NE [PRESENCE] IN URINE NONE-D ETECTE D 07/04 Specimen Type: URINE Comment: Urine with Cr <5 is diluted or substituted . Cr between 5 and 20 is very dilute. Urine with SG of 1.001 or less is diluted or substituted . SG of 1.003 or less is very dilute. Urine with a pH <3 or >11 has been adulterated and is unsuitable for testing by our current method. Urine with pH between 3 and 4 OR 10 and 11 may have been adulterated . Ordering Provider: ANJELICA LOYA Report Released Date/Time: Apr 20, 2024 08:58 AM Reporting Lab: [facility]ITALRCLAY COUNTY HOSPITALTRN [facility] CAMPUSUSETS [address] [address] Performing Lab: [facility]ERN [facility] CAMPUSUSE[address] [address] [facility]ERN [facility] CAMPUSUSE [facility] BUPRENORP SABINE SCREEN PANEL PH OF URINE 5.4 [pH] 4 - 10 07/04 Specimen Type: URINE Comment: Urine with Cr <5 is diluted or substituted . Cr between 5 and 20 is very dilute. Urine with SG of 1.001 or less is diluted or substituted . SG of 1.003 or less is very dilute. Urine with a pH <3 or >11 has been adulterated and is unsuitable for testing by our current method. Urine with pH between 3 and 4 OR 10 and 11 may have been adulterated . Ordering Provider: ANJELICA LOYA S Report Released Date/Time: Apr 20, 2024 08:58 AM Reporting Lab: [facility] HOSPITALRD.W. [facility] HOSPITALN [facility]ITALTS [address] [address] Performing Lab: [facility]ERN [facility] CAMPUSUSE[address] [address] [facility]ERN [facility] CAMPUSUSE [facility] BUPRENORP SABINE SCREEN PANEL CREATININE [MASS/VOLUM E] IN URINE 123.15 mg/dL 07/04 Specimen Type: URINE Comment: Urine with Cr <5 is diluted or substituted . Cr between 5 and 20 is very dilute. Urine with SG of 1.001 or less is diluted or substituted . SG of 1.003 or less is very dilute. Urine with a pH <3 or >11 has been adulterated and is unsuitable for testing by our current method. Urine with pH between 3 and 4 OR 10 and 11 may have been adulterated . Ordering Provider: ANJELICA LOYA Report Released Date/Time: Apr 20, 2024 08:58 AM Reporting Lab: [facility] [address] [address] Performing Lab: [facility] [address] [address] [facility] BUPRENORP SABINE SCREEN PANEL SPECIFIC GRAVITY OF URINE 1.026 1.003 - 1.020 07/04 H Specimen Type: URINE Comment: Urine with Cr <5 is diluted or substituted . Cr between 5 and 20 is very dilute. Urine with SG of 1.001 or less is diluted or substituted . SG of 1.003 or less is very dilute. Urine with a pH <3 or >11 has been adulterated and is unsuitable for testing by our current method. Urine with pH between 3 and 4 OR 10 and 11 may have been adulterated . Ordering Provider: ANJELICA LOYA Report Released Date/Time: Apr 20, 2024 08:58 AM Reporting Lab: [facility] [address] [address] Performing Lab: [address] [address] [facility] CANNABINO IDS SCREEN PANEL CANNABINOID S [PRESENCE] IN URINE BY SCREEN METHOD NONE-D ETECTE D - 50 07/04 Specimen Type: URINE Comment: Urine with Cr <5 is diluted or substituted . Cr between 5 and 20 is very dilute. Urine with SG of 1.001 or less is diluted or substituted . SG of 1.003 or less is very dilute. Urine with a pH <3 or >11 has been adulterated and is unsuitable for testing by our current method. Urine with pH between 3 and 4 OR 10 and 11 may have been adulterated . Ordering Provider: ANJELICA LOYA Report Released Date/Time: Apr 20, 2024 08:58 AM Reporting Lab: [place] [employer] ReviewZ[employer]N [employer] [address] [address] Performing Lab: [place] [facility]ZAPM[facility]AINS[facility] Yoopies[address] [address] [facility] SolaiemesCLIFTON SPR[facility] CANNABINO IDS SCREEN PANEL PH OF URINE 5.4 [pH] 4 - 10 07/04 Specimen Type: URINE Comment: Urine with Cr <5 is diluted or substituted . Cr between 5 and 20 is very dilute. Urine with SG of 1.001 or less is diluted or substituted . SG of 1.003 or less is very dilute. Urine with a pH <3 or >11 has been adulterated and is unsuitable for testing by our current method. Urine with pH between 3 and 4 OR 10 and 11 may have been adulterated . Ordering Provider: ANJELICA LOYA Report Released Date/Time: Apr 20, 2024 08:58 AM Reporting Lab: [facility] ReviewZAPN SelatraUSERehabDev [address] [address] Performing Lab: [facility] ReviewZAPN SelatraUSERehabDev [address] [address] [facility] SolaiemesUSE [facility] CANNABINO IDS SCREEN PANEL CREATININE [MASS/VOLUM E] IN URINE 123.15 mg/dL 07/04 Specimen Type: URINE Comment: Urine with Cr <5 is diluted or substituted . Cr between 5 and 20 is very dilute. Urine with SG of 1.001 or less is diluted or substituted . SG of 1.003 or less is very dilute. Urine with a pH <3 or >11 has been adulterated and is unsuitable for testing by our current method. Urine with pH between 3 and 4 OR 10 and 11 may have been adulterated . Ordering Provider: ANJELICA LOYA S Report Released Date/Time: Apr 20, 2024 08:58 AM Reporting Lab: [place] CNTRL [place] [facility] [address] [facility] [address] Performing Lab: [facility]ITALRCLAY COUNTY HOSPITALTRN [facility] HOSPITALCHUSETS [address] [address] [facility]ITALRD.W. [facility]OSPITALN [place] [facility] CANNABINO IDS SCREEN PANEL SPECIFIC GRAVITY OF URINE 1.026 1.003 - 1.020 07/04 H Specimen Type: URINE Comment: Urine with Cr <5 is diluted or substituted . Cr between 5 and 20 is very dilute. Urine with SG of 1.001 or less is diluted or substituted . SG of 1.003 or less is very dilute. Urine with a pH <3 or >11 has been adulterated and is unsuitable for testing by our current method. Urine with pH between 3 and 4 OR 10 and 11 may have been adulterated . Ordering Provider: ANJELICA LOYA S Report Released Date/Time: Apr 20, 2024 08:58 AM Reporting Lab: [facility]IATRIC HOSPITALRL TRN [facility] CAMPUSUSETS [address] [address] Performing Lab: [facility] HOSPITALRCLAY COUNTY HOSPITALTRN [facility] CAMPUSUSETS [address] [address] [facility] CAMPUSUSE [facility] COCAINE SCREEN PANEL COCAINE [PRESENCE] IN URINE BY SCREEN METHOD NONE-D ETECTE D - 300 07/04 Specimen Type: URINE Comment: Urine with Cr <5 is diluted or substituted . Cr between 5 and 20 is very dilute. Urine with SG of 1.001 or less is diluted or substituted . SG of 1.003 or less is very dilute. Urine with a pH <3 or >11 has been adulterated and is unsuitable for testing by our current method. Urine with pH between 3 and 4 OR 10 and 11 may have been adulterated . Ordering Provider: ANJELICA LOYA S Report Released Date/Time: Apr 20, 2024 08:58 AM Reporting Lab: [facility]OSPITALRCLAY COUNTY HOSPITALTRN [place] [address] [address] Performing Lab: [place] [address] [address] [facility] COCAINE SCREEN PANEL PH OF URINE 5.4 [pH] 4 - 10 07/04 Specimen Type: URINE Comment: Urine with Cr <5 is diluted or substituted . Cr between 5 and 20 is very dilute. Urine with SG of 1.001 or less is diluted or substituted . SG of 1.003 or less is very dilute. Urine with a pH <3 or >11 has been adulterated and is unsuitable for testing by our current method. Urine with pH between 3 and 4 OR 10 and 11 may have been adulterated . Ordering Provider: ANJELICA LOYA Report Released Date/Time: Apr 20, 2024 08:58 AM Reporting Lab: [address] [address] Performing Lab: [address] [address] [facility] COCAINE SCREEN PANEL CREATININE [MASS/VOLUM E] IN URINE 123.15 mg/dL 07/04 Specimen Type: URINE Comment: Urine with Cr <5 is diluted or substituted . Cr between 5 and 20 is very dilute. Urine with SG of 1.001 or less is diluted or substituted . SG of 1.003 or less is very dilute. Urine with a pH <3 or >11 has been adulterated and is unsuitable for testing by our current method. Urine with pH between 3 and 4 OR 10 and 11 may have been adulterated . Ordering Provider: ANJELICA LOYA Report Released Date/Time: Apr 20, 2024 08:58 AM Reporting Lab: [address] [address] Performing Lab: [address] [address] [facility] COCAINE SCREEN PANEL SPECIFIC GRAVITY OF URINE 1.026 1.003 - 1.020 07/04 H Specimen Type: URINE Comment: Urine with Cr <5 is diluted or substituted . Cr between 5 and 20 is very dilute. Urine with SG of 1.001 or less is diluted or substituted . SG of 1.003 or less is very dilute. Urine with a pH <3 or >11 has been adulterated and is unsuitable for testing by our current method. Urine with pH between 3 and 4 OR 10 and 11 may have been adulterated . Ordering Provider: ANJELICA LOYA Report Released Date/Time: Apr 20, 2024 08:58 AM Reporting Lab: [facility] HOSPITALRCLAY COUNTY HOSPITALTRN [facility] CAMPUSUSE[address] [address] Performing Lab: [facility]IATR[facility] HOSPITALRL TRN [facility] CAMPUSUSETS [address] [address] [facility] OPIATES SCREEN PANEL OPIATES [PRESENCE] IN URINE BY SCREEN METHOD NONE-D ETECTE D - 300 07/04 Specimen Type: URINE Comment: Urine with Cr <5 is diluted or substituted . Cr between 5 and 20 is very dilute. Urine with SG of 1.001 or less is diluted or substituted . SG of 1.003 or less is very dilute. Urine with a pH <3 or >11 has been adulterated and is unsuitable for testing by our current method. Urine with pH between 3 and 4 OR 10 and 11 may have been adulterated . Ordering Provider: ANJELICA LOYA Report Released Date/Time: Apr 20, 2024 08:58 AM Reporting Lab: [facility]OSPITALRCLAY COUNTY HOSPITALTRN [facility] CAMPUSUSE[address] [address] Performing Lab: [facility] HOSPITALRD.W. [facility] HOSPITALN [facility] CAMPUSUSE[address] [address] [facility] OPIATES SCREEN PANEL PH OF URINE 5.4 [pH] 4 - 10 07/04 Specimen Type: URINE Comment: Urine with Cr <5 is diluted or substituted . Cr between 5 and 20 is very dilute. Urine with SG of 1.001 or less is diluted or substituted . SG of 1.003 or less is very dilute. Urine with a pH <3 or >11 has been adulterated and is unsuitable for testing by our current method. Urine with pH between 3 and 4 OR 10 and 11 may have been adulterated . Ordering Provider: ANJELICA LOYA Report Released Date/Time: Apr 20, 2024 08:58 AM Reporting Lab: [facility]ITALR[address] [address] Performing Lab: [address] [address] [facility] OPIATES SCREEN PANEL CREATININE [MASS/VOLUM E] IN URINE 123.15 mg/dL 20 07/04 Specimen Type: URINE Comment: Urine with Cr <5 is diluted or substituted . Cr between 5 and 20 is very dilute. Urine with SG of 1.001 or less is diluted or substituted . SG of 1.003 or less is very dilute. Urine with a pH <3 or >11 has been adulterated and is unsuitable for testing by our current method. Urine with pH between 3 and 4 OR 10 and 11 may have been adulterated . Ordering Provider: ANJELICA LOYA Report Released Date/Time: Apr 20, 2024 08:58 AM Reporting Lab: [address] [address] Performing Lab: [address] [address] [facility] OPIATES SCREEN PANEL SPECIFIC GRAVITY OF URINE 1.026 1.003 - 1.020 07/04 H Specimen Type: URINE Comment: Urine with Cr <5 is diluted or substituted . Cr between 5 and 20 is very dilute. Urine with SG of 1.001 or less is diluted or substituted . SG of 1.003 or less is very dilute. Urine with a pH <3 or >11 has been adulterated and is unsuitable for testing by our current method. Urine with pH between 3 and 4 OR 10 and 11 may have been adulterated . Ordering Provider: ANJELICA LOYA Report Released Date/Time: Apr 20, 2024 08:58 AM Reporting Lab: [address] [address] Performing Lab: [address] [address] [facility] OXYCODONE SCREEN PANEL OXYCODONE [PRESENCE] IN URINE BY SCREEN METHOD NONE-D ETECTE D - 100 07/04 Specimen Type: URINE Comment: Urine with Cr <5 is diluted or substituted . Cr between 5 and 20 is very dilute. Urine with SG of 1.001 or less is diluted or substituted . SG of 1.003 or less is very dilute. Urine with a pH <3 or >11 has been adulterated and is unsuitable for testing by our current method. Urine with pH between 3 and 4 OR 10 and 11 may have been adulterated . Ordering Provider: ANJELICA LOYA Report Released Date/Time: Apr 20, 2024 08:58 AM Reporting Lab: [facility]ITALTRN [place] [address] [address] Performing Lab: [facility]ENTERUSE[address] [address] [facility]ENTERUSE [facility] OXYCODONE SCREEN PANEL PH OF URINE 5.4 [pH] 4 - 10 07/04 Specimen Type: URINE Comment: Urine with Cr <5 is diluted or substituted . Cr between 5 and 20 is very dilute. Urine with SG of 1.001 or less is diluted or substituted . SG of 1.003 or less is very dilute. Urine with a pH <3 or >11 has been adulterated and is unsuitable for testing by our current method. Urine with pH between 3 and 4 OR 10 and 11 may have been adulterated . Ordering Provider: ANJELICA LOYA Report Released Date/Time: Apr 20, 2024 08:58 AM Reporting Lab: [facility]ERN [facility] CAMPUSUSE[address] [address] Performing Lab: [facility] CENTERUSE[address] [address] [facility] OXYCODONE SCREEN PANEL CREATININE [MASS/VOLUM E] IN URINE 123.15 mg/dL 07/04 Specimen Type: URINE Comment: Urine with Cr <5 is diluted or substituted . Cr between 5 and 20 is very dilute. Urine with SG of 1.001 or less is diluted or substituted . SG of 1.003 or less is very dilute. Urine with a pH <3 or >11 has been adulterated and is unsuitable for testing by our current method. Urine with pH between 3 and 4 OR 10 and 11 may have been adulterated . Ordering Provider: ANJELICA LOYA S Report Released Date/Time: Apr 20, 2024 08:58 AM Reporting Lab: [place] [facility]L [place] [facility] [address] [facility] [address] Performing Lab: [place] [facility] [facility] [address] [facility] [address] [facility] HOSPITALRL WSTRN [place] [facility] OXYCODONE SCREEN PANEL SPECIFIC GRAVITY OF URINE 1.026 1.003 - 1.020 07/04 H Specimen Type: URINE Comment: Urine with Cr <5 is diluted or substituted . Cr between 5 and 20 is very dilute. Urine with SG of 1.001 or less is diluted or substituted . SG of 1.003 or less is very dilute. Urine with a pH <3 or >11 has been adulterated and is unsuitable for testing by our current method. Urine with pH between 3 and 4 OR 10 and 11 may have been adulterated . Ordering Provider: ANJELICA LOYA Report Released Date/Time: Apr 20, 2024 08:58 AM Reporting Lab: [place] [facility] [facility] [address] [facility] [address] Performing Lab: [facility] HOSPITALRL WSTRN [place] [facility] [address] [facility] [address] [facility]IATR[facility] HOSPITALRL WSTRN [place] [facility] Vital Signs Combined list of inpatient and outpatient Vital Signs from Department of Defense and Veterans Affairs, ranging from 12 months to all on record, depending upon the facility. Vital Sign Value Date Comments Source SYSTOLIC BLOOD PRESSURE [id number] 07/10/20 24 08:26:05 [facility] [place] [facility] DIASTOLIC BLOOD PRESSURE [id number] 024 08:26:05 [facility] [place] [facility] PULSE OXIMETRY 99 07/10/2024 08:26:05 [facility] [place] [facility] WEIGHT 185 07/10/2024 08:26:05 [facility] [place] [facility] BMI 27kg/m2 07/10/2024 08:26:05 [facility] [place] [facility] PAIN 7 07/10/2024 08:26:05 [place] [facility] [place] [facility] [facility] TEMPERATURE 97.9 07/10/2024 08:26:05 [facility] PULSE 80 07/10/2024 08:26:05 [facility] RESPIRATION 16 07/10/2024 08:26:05 [facility] SYSTOLIC BLOOD PRESSURE 136 03/29/20 08:58:47 [facility] DIASTOLIC BLOOD PRESSURE 78 024 08:58:47 [facility] PULSE OXIMETRY 98 03/29/2024 08:58:47 [facility] WEIGHT 183 03/29/2024 08:58:47 [facility] BMI 27kg/m2 03/29/2024 08:58:47 [facility] PAIN 6 03/29/2024 08:58:47 [facility] TEMPERATURE 97.5 03/29/2024 08:58:47 [facility] PULSE 69 03/29/2024 08:58:47 [facility] RESPIRATION 16 03/29/2024 08:58:47 [facility] SYSTOLIC BLOOD PRESSURE 163 03/22/20 12:13:43 [facility] DIASTOLIC BLOOD PRESSURE 52 024 12:13:43 [facility] PULSE OXIMETRY 98 03/22/2024 12:13:43 [facility] TEMPERATURE 97.6 03/22/2024 12:13:43 [facility] PULSE 106 03/22/2024 12:13:43 [facility] RESPIRATION 22 03/22/2024 12:13:43 [facility] SYSTOLIC BLOOD PRESSURE 136 01/06/20 24 14:31:36 [facility] DIASTOLIC BLOOD PRESSURE 72 024 14:31:36 [facility] PULSE OXIMETRY 97 01/06/2024 14:31:36 [facility] WEIGHT 178 01/06/2024 14:31:36 [facility] BMI 26kg/m2 01/06/2024 14:31:36 [facility] PAIN 5 01/06/2024 14:31:36 [facility] TEMPERATURE 98 01/06/2024 14:31:36 [facility] PULSE 88 01/06/2024 14:31:36 [facility] RESPIRATION 16 01/06/2024 14:31:36 [facility] PULSE OXIMETRY 96 12/09/2023 13:37:39 [facility] PAIN 2 12/09/2023 13:37:39 [facility] TEMPERATURE 97.7 12/09/2023 13:37:39 [facility] PULSE 76 12/09/2023 13:37:39 [facility] RESPIRATION 16 12/09/2023 13:37:39 [facility] Encounters Combined list of: 1) Encounters from [facility] Affairs facilities going back up to thelast 18 months. 2) Encounters from the Department of Defense facilities going back up to 280 months. Location Location Details Encounter Type Encounter Number Reason For Visit Attending Provider ADM Date DC Date Status Disposition Source [facility] Outpatient Encounter [id number] 04/25 [facility] MOST RCT BP </= 140/90 [id number] Diagnos is: ICD-10- CM I10 Essenti al (primar y) hyperte nsion<b r/> CHILSONREGINE E 05/31 [facility] Outpatient Encounter [id number] 06/02 [facility] OFFICE O/P NEW HI 60-74 MIN [id number] Diagnos is: ICD-10- CM H93.19 Tinnitu s, unspeci fied ear<br/ > FURCOLO,TI NA 06/16 [facility] Outpatient Encounter [id number] 06/23 [facility] Outpatient Encounter [id number] 07/01 [facility] PSYCH DIAGNOSTIC EVALUATION [id number] Diagnos is: ICD-10- CM F41.9 Anxiety disorde r, unspeci fied
TIMA GAMEZ ON A 07/05 [facility] OFFICE O/P EST HI 40-54 MIN [id number] Diagnos is: ICD-10- CM F41.1 General ized anxiety disorde r
Chapito MOYIN 07/09 [facility] OFF/OP EST MAY X REQ PHY/QHP [id number] Diagnos is: ICD-10- CM R19.7 Diarrhe a, unspeci fied
CHIKARMEN,TI MOTHY E 08/02 [facility] OFFICE O/P EST MOD 30 MIN [id number] Diagnos is: ICD-10- CM R19.7 Diarrhe a, unspeci fied
FURCOLO,TI NA 08/02 [facility] Outpatient [facility]counter [id number] 08/06 [facility] Outpatient Encounter [id number] 08/10 [facility] OFF/OP CONSLTJ NEW/EST HI 55 [id number] Diagnos is: ICD-10- CM R52 Pain, unspeci fied
CUTLERELIER S 08/10 [facility] Outpatient Encounter [id number] Diagnos is: ICD-10- CM R52 Pain, unspeci fied
CUTLERELIER S 08/12 [facility] OFFICE O/P EST MOD 30 MIN [id number] Diagnos is: ICD-10- CM F41.1 General ized anxiety disorde r
Chapito MOY 08/13 [facility] Out[facility] Encounter [id number] 08/13 [facility] Outpatient Encounter [id number] 08/13 [facility] Outpatient Encounter [id number] 08/27 [facility] OFFICE O/P NEW HI 60 MIN [id number] Diagnos is: ICD-10- CM M54.2 Cervica lgia
NIMO GRAVES THI 08/30 [facility] SELF CARE MNGMENT TRAINING [id number] Diagnos is: ICD-10- CM G89.29 Other chronic pain
KATHARINA LAWTON 08/30 [facility] Outpatient Encounter [id number] 08/30 [facility] Outpatient Encounter [id number] 08/30 [facility] OFFICE O/P EST MOD 30 MIN [id number] Diagnos is: ICD-10- CM F41.9 Anxiety disorde r, unspeci fied
Chapito MOY 08/31 [facility] OFFICE O/P EST MOD 30 MIN [id number] Diagnos is: ICD-10- CM F41.9 Anxiety disorde r, unspeci fied
Chapito MOY 09/22 [facility] Outpatient Encounter [id number] 09/23 [facility] ACUPUNCT W/O STIMUL 15 MIN [id number] Diagnos is: ICD-10- CM M54.2 Cervica lgia
GAUNYA,CHR ISTOPHER M 09/26 [facility] Out[facility] Encounter [id number] 09/28 [facility] PSYTX W PT 45 MINUTES [id number] Diagnos is: ICD-10- CM F41.9 Anxiety disorde r, unspeci fied
POZZETTO,S IMONA 10/13 [facility] PSYTX W PT 30 MINUTES [id number] Diagnos is: ICD-10- CM F41.9 Anxiety disorde r, unspeci fied
POZZETTO,S IMONA 10/17 [facility] Outpatient Encounter [id number] 10/17 [facility] OFFICE O/P EST LOW 20 MIN [id number] Diagnos is: ICD-10- CM M54.12 Radicul opathy, cervica l region< br/> GAUNYA,[facility] ISTOPHER M 10/18 [facility] OFFICE O/P EST MOD 30 MIN [id number] Diagnos is: ICD-10- CM F41.9 Anxiety disorde r, unspeci fied
FARZANEH,M YAIR 10/19 [facility] PSYTX W PT 30 MINUTES [id number] Diagnos is: ICD-10- CM F41.9 Anxiety disorde r, unspeci fied
SHERIFS IMONA 10/20 [facility] Outpatient Encounter [id number] 10/24 [facility] OFFICE O/P EST HI 40 MIN [id number] Diagnos is: ICD-10- CM G89.29 Other chronic pain
KUPFERSCHM ID,ENEDELIA B 10/25 [facility] ACUPUNCT W/O STIMUL 15 MIN [id number] Diagnos is: ICD-10- CM R52 Pain, unspeci fied
GAUNYA,CHR ISTOPHER M 10/25 [facility] Outpatient Encounter [id number] 11/01 [facility] OFFICE O/P EST HI 40 MIN [id number] Diagnos is: ICD-10- CM R52 Pain, unspeci fied
CUTLER,ELIER WILLY S 11/02 [facility] Outpatient [facility]counter [id number] 11/11 [facility] OFFICE O/P EST MOD 30 MIN [id number] Diagnos is: ICD-10- CM F41.9 Anxiety disorde r, unspeci fied
Chapito MOY YAIR 11/16 [facility] Out[facility] Encounter [id number] 11/17 [facility] ACUPUNCT W/O STIMUL 15 MIN [id number] Diagnos is: ICD-10- CM M54.2 Cervica lgia
GAUNYA,CHR ISTOPHER M 11/18 [facility] Outpatient Encounter [id number] 11/21 [facility] ACUPUNCT W/O STIMUL 15 MIN [id number] Diagnos is: ICD-10- CM M54.2 Cervica lgia
GAUNYA,[facility] ISTOPHER M 12/01 [facility] Out[facility] Encounter [id number] 12/02 [facility] SELF CARE MNGMENT TRAINING [id number] Diagnos is: ICD-10- CM G89.29 Other chronic pain
EMET,KATCHARO EEN 12/05 [facility] Outpatient Encounter [id number] 12/07 [facility] Outpatient Encounter [id number] 12/07 [facility] OFF/OP EST NOVEMBER X REQ PHY/QHP [id number] Diagnos is: ICD-10- CM Z71.9 [employer] Operator ing, unspeci fied
Chapito MULLIGAN MAKAYLA H 12/08 [facility] ACUPUNCT W/O STIMUL 15 MIN [id number] Diagnos is: ICD-10- CM M54.2 Cervica lgia
GAUNYA,CHR ISTOPHER M 12/08 [facility] Outpatient Encounter [id number] 12/12 [facility] HLTH BHV ASSMT/REAS SESSMENT [id number] Diagnos is: ICD-10- CM G89.4 Chronic pain syndrom e
TAVON EVANGELISTA 12/13 [facility] OFFICE O/P NEW MOD 45 MIN [id number] Diagnos is: ICD-10- CM M54.2 Cervica lgia
ALICE HERNANDEZ RA 12/13 [facility] Outpatient Encounter [id number] 12/14 [facility] ACUPUNCT W/O STIMUL ADDL 15M [id number] Diagnos is: ICD-10- CM M54.12 Radicul opathy, cervica l region< br/> GAUNYA,CHR ISTOPHER M 12/15 [facility] Out[facility] Encounter [id number] 12/26 [facility] Outpatient Encounter [id number] 12/27 [facility] OFFICE O/P EST MOD 30 MIN [id number] Diagnos is: ICD-10- CM R52 Pain, unspeci fied
ELIER SHAFERM S 12/27 [facility] ACUPUNCT W/O STIMUL ADDL 15M [id number] Diagnos is: ICD-10- CM R52 Pain, unspeci fied
GAUNSHON,CHR ISTOPHER M 12/28 [facility] PSYCHOPHYS IOLOGICAL THERAPY [id number] Diagnos is: ICD-10- CM G89.4 Chronic pain syndrom e
TAVON EVANGELISTA 12/28 [facility] Out[facility] Encounter [id number] 01/05 [facility] Outpatient Encounter [id number] 01/05 [facility] OFFICE O/P EST MOD 30 MIN [id number] Diagnos is: ICD-10- CM F41.9 Anxiety disorde r, unspeci fied
FURCOLO,TI NA 01/05 [facility] ACUPUNCT W/O STIMUL 15 MIN [id number] Diagnos is: ICD-10- CM M54.12 Radicul opathy, cervica l region< br/> GAUNYA,[facility] ISTOPHER M 01/05 [facility] Outpatient Encounter [id number] 01/09 [facility] Outpatient Encounter [id number] 01/10 [facility] ACUPUNCT W/O STIMUL 15 MIN [id number] Diagnos is: ICD-10- CM M54.2 Cervica lgia
[facility] HC PRO PHONE CALL 11-20 MIN [id number] Diagnos is: ICD-10- CM Z72.3 Lack of physica l exercis e
SHAILA VELAZQUEZ 01/13 [facility] MANUAL THERAPY 1/> REGIONS [id number] Diagnos is: ICD-10- CM M54.2 Cervica lgia
ALICE HERNANDEZ RA 01/17 [facility] OFFICE O/P EST MOD 30 MIN [id number] Diagnos is: ICD-10- CM F41.9 Anxiety disorde r, unspeci fied
Chapito MOY 01/18 [facility] Out[facility]counter [id number] 01/23 [facility] Outpatient Encounter [id number] 01/24 [facility] MECHANICAL TRACTION THERAPY [id number] Diagnos is: ICD-10- CM M54.2 Cervica lgia
ALICE HERNANDEZ RA 01/24 [facility] Out[facility] Encounter [id number] 01/24 [facility] MECHANICAL TRACTION THERAPY [id number] Diagnos is: ICD-10- CM M54.2 Cervica lgia
ALICE HERNANDEZ RA 01/31 [facility] Out[facility] Encounter [id number] 01/31 [facility] OFFICE O/P EST MOD 30 MIN [id number] Diagnos is: ICD-10- CM F41.9 Anxiety disorde r, unspeci fied
Chapito MOY YAIR 02/01 [facility] ACUPUNCT W/O STIMUL 15 MIN [id number] [id number] Diagnos is: ICD-10- CM M54.2 Cervica lgia
GAUNYA,CHR ISTOPHER M 02/01 [facility] Outpatient Encounter [id number] 02/01 [facility] Outpatient Encounter [id number] 02/01 [facility] PT EDUCATION NOC INDIVID [id number] Diagnos is: ICD-10- CM Z72.3 Lack of physica l exercis e
SHAILA VELAZQUEZ 02/03 [facility] SELF CARE MNGMENT TRAINING [id number] Diagnos is: ICD-10- CM M54.59 Other low back pain
EMET,KATHL EEN 02/09 [facility] MANUAL THERAPY [place] [id number] Diagnos is: ICD-10- CM M54.59 Other low back pain
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 Diagnos is: ICD-10- CM M54.59 Other low back pain
LEIGHANNJEOVANNYCHARO PARK 03/13 [facility] Outpatient Encounter [id number] Diagnos is: ICD-10- CM R52 Pain, unspeci fied
CUTLER,ELIER TAYLORM S 03/14 [facility] ACUPUNCT W/O STIMUL ADDL 15M [id number] Diagnos is: ICD-10- CM M54.12 Radicul opathy, cervica l region< br/> GAUNYA,CHR ISTOPHER M 03/15 [facility] Outpatient Encounter [id number] 1.03/22 [facility] Outpatient Encounter [id number] 1.03/22 [facility] PSYTX W PT 30 MINUTES 1. Diagnos is: ICD-10- CM F41.9 Anxiety disorde r, unspeci fied
SWATICarlinJairo Uriarte 03/22 [facility] Outpatient Encounter [id number] 03/22 [facility] OFFICE O/P EST MOD 30 MIN [id number] Diagnos is: ICD-10- CM F41.1 General ized anxiety disorde r
Chapito MOY 03/28 [facility] Outpatient Encounter [id number] 1.03/29 [facility] Outpatient Encounter [id number] 1.03/29 [facility] OFFICE O/P EST MOD 30 MIN [id number] Diagnos is: ICD-10- CM R52 Pain, unspeci fied
FURCOLO,TI NA 03/29 [facility] WELLNESS ASSESSMENT BY [facility] [id number] Diagnos is: ICD-10- CM Z73.3 Stress, not elsewhe re classif ied<br/ > HEBRIANDA ELY 03/30 [facility] Outpatient Encounter [id number] [facility] OFF/OP EST MAY X REQ PHY/QHP [id number] Diagnos is: ICD-10- CM Z23 Encount er for immuniz ation<b r/> RA FERNANDO LANCASTER M 04/07 [facility] Outpatient Encounter [id number] 04/11 [facility] OFFICE O/P EST HI 40 MIN [id number] 1. Diagnos is: ICD-10- CM R52 Pain, unspeci fied
RENEEELIER MAYER S 04/12 [facility] Outpatient Encounter [id number]/12 [facility] INFRARED THERAPY [id number] 1. Diagnos is: ICD-10- CM M54.12 Radicul opathy, cervica l region< br/> GAUNYA,CHR ISTOPHER M 04/14 [facility] Outpatient Encounter [id number] [facility] MANUAL THERAPY 1/> REGIONS [id number] Diagnos is: ICD-10- CM M54.59 Other low back pain
EMET,KATHL EEN 04/18 [facility] SELF CARE MNGMENT TRAINING [id number] Diagnos is: ICD-10- CM M54.59 Other low back pain
EMET,KATHL EEN 04/19 [facility] QNHP OL DIG ASSMT&MGMT 5-10 [id number] Diagnos is: ICD-10- CM M54.12 Radicul opathy, cervica l region< br/> JACK LOYA S 04/20 [facility] OFFICE O/P EST MOD 30 MIN [id number] 1. Diagnos is: ICD-10- CM F41.1 General ized anxiety disorde r
FARZANEHChapito YAIR 04/24 [facility] Outpatient Encounter [id number] 1.04/24 [facility] THERAPEUTI C EXERCISES [id number] 1. Diagnos is: ICD-10- CM M54.59 Other low back pain
EMET,JEOVANNYHL EEN 04/24 [facility] Outpatient Encounter [id number] 04/24 [facility] INFRARED THERAPY [id number] Diagnos is: ICD-10- CM F41.9 Anxiety disorde r, unspeci fied
MARVIN,KAYY ISTOPHER M 04/26 [facility] Outpatient [facility]counter [id number] 04/27 [facility] [facility] THERAPEUTI C EXERCISES [id number] 1. Diagnos is: ICD-10- CM M54.59 Other low back pain
EMET,KATHL EEN 05/01 [facility] OFF/OP EST MAY X REQ PHY/QHP [id number] Diagnos is: ICD-10- CM Z23 Encount er for immuniz ation<b r/> ROCHASAMUEL NON P 05/02 [facility] INFRARED THERAPY [id number] Diagnos is: ICD-10- CM R52 Pain, unspeci fied
GAUNYA,CHR ISTOPHER M 05/02 [facility] THERAPEUTI C EXERCISES [id number] Diagnos is: ICD-10- CM M54.59 Other low back pain
EMEMJEOVANNYCHARO PARK 05/03 [facility] THERAPEUTI C EXERCISES [id number] Diagnos is: ICD-10- CM M54.59 Other low back pain
EMETKATHARINA XAVIER 05/10 [facility] Outpatient Encounter [id number] 1. EMEMKATHARINA EEN 05/11 [facility] Outpatient Encounter [id number] 1. EMETKATHARINA EEN 05/11 [facility] En[facility] [id number] 05/17 [facility] THERAPEUTI C EXERCISES [id number] Diagnos is: ICD-10- CM M54.59 Other low back pain
EMETJEOVANNYHL EEN 05/17 [facility] En[facility] [id number] 05/18 [facility] OFFICE O/P EST MOD 30 MIN [id number] Diagnos is: ICD-10- CM F41.1 General ized anxiety disorde r
Chapito MOY 05/22 [facility] [place] ([facility]) Outpatient Encounter [id number] 05/26 [facility] ([facility]) [facility] En[facility] [id number] 05/26 [facility] SELF CARE MNGMENT TRAINING [id number] Diagnos is: ICD-10- CM M54.59 Other low back pain
KATHARINA LAWTON 05/31 [facility] En[facility] [id number]/[id number] [facility] SELF-MGMT EDUC/TRAIN 5-8 [place] [id number] Diagnos is: ICD-10- CM G89.4 Chronic pain syndrom e
TAVON EVANGELISTA 06/06 [facility] En[facility] [id number] 06/12 [facility] Encounter [id number] 06/12 [facility] SELF-MGMT EDUC/TRAIN 5-8 [place] [id number] Diagnos is: ICD-10- CM G89.4 Chronic pain syndrom e
TAVON EVANGELISTA IFER 06/13 [facility] OFFICE O/P EST HI 40 MIN [id number] Diagnos is: ICD-10- CM R52 Pain, unspeci fied
HOLLISELIER S 06/14 [facility] [id number] 1.06/15 [facility] Encounter [id number] 06/19 [facility] Encounter [id number] 06/19 [facility] OFFICE O/P EST MOD 30 MIN [id number] Diagnos is: ICD-10- CM F41.1 General ized anxiety disorde r
Chapito MOY 06/20 [facility] SELF-MGMT EDUC/TR[place] 2-4 [place] [id number] Diagnos is: ICD-10- CM G89.4 Chronic pain syndrom e
FARZAD EVANGELISTAN IFER 06/20 [facility] En[facility] [id number] 06/20 [facility] Encounter [id number] 06/26 [facility] SELF-MGMT EDUC/TRAIN 5-8 [place] [id number] Diagnos is: ICD-10- CM G89.4 Chronic pain syndrom e
TAVON EVANGELISTA IFER 06/27 [facility] [id number] 1.06/30 [facility] Encounter [id number]/03 [facility] SELF-MGMT EDUC/TRAIN 5-8 [place] [id number] Diagnos is: ICD-10- CM G89.4 Chronic pain syndrom e
TAVON EVANGELISTA IFER 07/04 [facility] [place] [id number] 1. Diagnos is: ICD-10- CM H25.13 Age-rel ated nuclear catarac t, bilater al
CHINA FOSTER JUWAN E 07/05 [facility] FIT SPECTACLES MULTIFOCAL [id number] Diagnos is: ICD-10- CM Z46.0 Encount er for fit/adj st of spectac les and contact lenses< br/> CHINA FOSTER E 07/05 [facility] OFFICE O/P EST MOD 30 MIN [id number] Diagnos is: ICD-10- CM R52 Pain, unspeci fied
FURCOLO,TI NA 07/10 [facility] [place] Outpatient Encounter [id number] 07/11 [facility] [place] OFFICE O/P EST MOD 30 MIN [id number] Diagnos is: ICD-10- CM F41.1 General ized anxiety disorde r
Chapito MOY 07/11 [facility] [place] Outpatient Encounter [id number] 07/17 [facility] [place] Outpatient Encounter [id number] 07/24 [facility] Outpatient Encounter [id number] 07/24 [facility] Social History Combined list of available smoking, tobacco, and other social history from Department of Defense and Veterans Affairs facilities. Social History Type Response Date Comment Sourc e Tobacco smoking status NHIS VA-TOBACCO NEVER USED CIGARETTES 07/10/2024 [facility] [place] [facility] History of tobacco use VA-TOBACCO NEVER USED OTHER TYPE 07/10/2024 [facility] [place] [facility] History of tobacco use VA-TOBACCO NEVER USED 09/04/2021 [facility] [place] [facility] This section is an empty social history section. DoD Plan of Care List of future care activities from Department of Veterans Affairs facilities. Additional future care activities may be listed in the Assessment and Plan section. Date/Time Care Activity Care Activity Detail Facili ty 07/31/2024 AMBULATORY - NONE AMBULATORY - NONE [facility] [place] [facility] 08/01/2024 AMBULATORY - MEDICINE AMBULATORY - MEDICI [facility] 08/01/2024 AMBULATORY - MEDICINE AMBULATORY - MEDICI NE [facility] [place] [facility] 08/01/2024 AMBULATORY - MEDICINE AMBULATORY - MEDICI [place] [facility] [place] [facility] 08/08/2024 AMBULATORY - MEDICINE AMBULATORY - MEDICI [place] [facility] [place] [facility] 08/09/2024 AMBULATORY - PSYCHIATRY AMBULATORY - PSYC HIATRY [facility] [place] [facility] 08/15/2024 AMBULATORY - MEDICINE AMBULATORY - MEDICI NE [facility] [place] [facility] 09/14/2024 AMBULATORY - MEDICINE AMBULATORY - MEDICI [place] [facility] [place] [facility] 01/08/2025 AMBULATORY - MEDICINE AMBULATORY - MEDICI NE [facility] [place] [facility]
--- OUTSIDE RECORDS SUMMARY | 2024-07-31 10:36 | XMS_ITS ---
Author Name [facility] [place] [facility] [place] Address [address] [place] [address] Care Team Providers Care Project Account Manager Name Role Phone MELBA DOE Primary Care [...] PART B Feb 24, 2020 PART B [id number] [phone] STAR DOUGHERTY JR PATIENT MEDICARE (WNR) MEDICARE (M) PART A November 24, 2019 PART A [id number] STAR DOUGHERTY JR PATIENT OFFICE OF REGIONAL [facility] NO-FAULT INSURANCE NO FAULT May 12, 2022 NO FAULT [id number] STAR DOUGHERTY JR PATIENT FOR LIFE TFL* Feb 24, 2020 [id number] [phone] STAR DOUGHERTY JR PATIENT [facility] (WNR) TRICA RE(WN R) Jul 26, 2017 (WNR) [id number] ROSALES DOUGHERTY ROSETTA PATIENT Selected Encounter This section includes the information on record at [place] for the Encounter. Date/Time Encounter Type Encounter Description Reason Provider Source Aug 02, 2023 10:30 AM OFF/OP EST MAY X REQ PHY/QHP PRIMARY CARE/MEDICINE ICD-10-CM R19.7 Diarrhea, unspecified CHILSON,TIMOTH Y E IHE Encounter Template Text not used by [place] Assessments - Encounter Diagnoses This section includes the primary and secondary diagnoses documented for the Encounter. Date/Time Primary/Secondary Diagnosis Diagnosis Name Provider Source Mar 19, 2024 12:07 PM PRIMARY Diarrhea, unspecified CHILSON,TIMOTH Y E [facility] [place] [facility] Plan of Treatment: Future Appointments (+ 6 months) and Future Tests (+/- 45 days) The Plan of Treatment section includes future care activities for the patient from all [place] [facility]. This section includes future appointments and future orders which are active, pending or scheduled. Future Appointments This section includes appointments that were scheduled to occur 6 months from the date of the Encounter, up to a maximum of 20 appointments. The data comes from all [place] treatment facilities. Appointment Date/Time Appointment Type Appointme nt Facility Name Aug 10, 2023 09:30 AM AMBULATORY - MEDICINE [facility] [place] [facility] Aug 13, 2023 08:30 AM AMBULATORY - PSYCHIATRY [facility] [place] [facility] Aug 30, 2023 10:00 AM AMBULATORY - MEDICINE [facility] [place] [place] [facility] Aug 30, 2023 10:30 AM AMBULATORY - MEDICINE [facility] [place] [facility] Aug 31, 2023 08:30 AM AMBULATORY - PSYCHIATRY [facility] [place] [facility] Sep 22, 2023 08:30 AM AMBULATORY - PSYCHIATRY [facility] [place] [facility] Sep 27, 2023 12:45 PM AMBULATORY - MEDICINE [facility] [place] [facility] Oct 14, 2023 09:30 AM AMBULATORY - PSYCHIATRY [facility] [place] [facility] Oct 18, 2023 09:30 AM AMBULATORY - PSYCHIATRY [facility] [place] [facility] Oct 19, 2023 08:30 AM AMBULATORY - MEDICINE [facility] [place] [facility] Oct 20, 2023 08:30 AM AMBULATORY - PSYCHIATRY [facility] [place] [facility] Oct 21, 2023 09:30 AM AMBULATORY - PSYCHIATRY [facility] [place] [facility] Oct 26, 2023 10:00 AM AM[facility]ULATORY [facility]ICINE [facility] [place] [facility] Oct 26, 2023 12:30 PM AMBULATORY - MEDICINE [facility] [place] [facility] Nov 03, 2023 11:30 AM AMBULATORY - MEDICINE [facility] [place] [facility] Nov 17, 2023 08:30 AM AMBULATORY - PSYCHIATRY [facility] [place] [facility] Nov 19, 2023 12:30 PM AMBULATORY - MEDICINE [facility] [place] [facility] December 02, 2023 03:00 PM AMBULATORY - MEDICINE [facility] [place] [facility] December 06, 2023 09:30 AM AMBULATORY - MEDICINE [facility] [place] [facility] December 09, 2023 01:30 PM AMBULATORY - MEDICINE [facility] [place] [facility] Lab Results: +/- 30 days of the encounter This section includes the Chemistry and Hematology Lab Results on record with [place] for the patient. Radiology Reports and Pathology Reports are provided separately, in subsequent sections. Lab Results This section contains the Chemistry/Hematology Results that were resulted 30 days before or 30 daysafter the date of the Encounter. Date/Time Source Result Type Result - Unit Interpretation Reference Range Comment Aug 13, 2023 09:09 AM [facility] HLA-B27 (QU) Specimen Type: BLOOD Comment: Test Performed by [facility], [facility], [address] [place] [address] Paul Martinez M.D., Ph.D., Director of Laboratories , CLIA [id number] TEST PERFORMED AT: , Ordering Provider: MARIBEL SHAFER Report Released Date/Time: Aug 12, 2023 09:56 AM Reporting [facility] [place] [facility] [address] [facility] [address] Performing Lab: [facility] [address] [address] HLA-B27 Negative Negative Aug 13, 2023 09:09 AM [facility] YAJAIRA SCREEN/TITER Specimen Type: SERUM No comment entered. Ordering Provider: MARIBEL SHAFER Report Released Date/Time: Aug 12, 2023 09:56 AM Reporting Lab: [facility] [place] [facility] [address] [facility] [address] Performing Lab: [facility] [address] [facility] [address] YAJAIRA SCREEN NEG Aug 13, 2023 09:09 AM [facility] C REACTIVE PROTEIN (CRPH) Specimen [...] Aug 12, 2023 09:56 AM Reporting Lab: [facility] [address] [facility] [address] Performing Lab: [facility] [address] [facility] [address] C REACTIVE PROTEIN (CRPH) 2.31 mg/L See eval. Aug 13, 2023 09:09 AM [facility] RHEUMATOID FACTOR Specimen Type: SERUM No comment entered. Ordering Provider: MARIBEL SHAFER Report Released Date/Time: Aug 12, 2023 09:56 AM Reporting Lab: [facility] [address] [facility] [address] Performing Lab: [facility] [address] [facility] [address] RHEUMATOID FACTOR <15 0-15 Aug 13, 2023 09:09 AM [facility] SED RATE, AUTOMATED Specimen Type: BLOOD No comment entered. Ordering Provider: MARIBEL SHAFER Report Released Date/Time: Aug 12, 2023 09:56 AM Reporting Lab: [facility] [address] [facility] [address] Performing Lab: [facility] [address] SED RATE, AUTOMATED <1 mm/h 0-20 Aug 13, 2023 09:09 AM [facility] CPK Specimen Type: SERUM No comment entered. Ordering Provider: MARIBEL SHAFER Report Released Date/Time: Aug 12, 2023 09:56 AM Reporting Lab: [facility] [address] [facility] [address] Performing Lab: [facility] [address] [address] CPK 138 U/L 30-200 Aug 02, 2023 12:21 PM [facility] LIVER FUNCTION Specimen Type: SERUM No comment entered. Ordering Provider: MELBA DOE Report Released Date/Time: Aug 02, 2023 11:51 AM Reporting Lab: [facility] [address] [address] Performing Lab: [address] [address] PROTEIN,TOTAL 6.3 g/dL 6.0-8.3 ALBUMIN 4.0 g/dL 3.5-5.0 ALKALINE PHOSPHATASE 93 U/L 40-150 AST 28 U/L 5-34 ALT 32 U/L BILIRUBIN, TOTAL 0.4 mg/dL 0.2-1.2 Aug 02, 2023 12:21 PM [facility] BASIC METABOLIC PANEL (fasting) Specimen Type: SERUM No comment entered. Ordering Provider: MELBA DOE Report Released Date/Time: Aug 02, 2023 11:51 AM Reporting Lab: [facility] [address] Performing Lab: [address] [address] UREA NITROGEN 15 mg/dL 7-25 GLUCOSE 91 mg/dL 65-100 SODIUM 140 mmol/L 135-145 POTASSIUM 3.9 mmol/L 3.5-5.0 CHLORIDE 104 mmol/L 100-110 CO2 28 meq/L 20-30 CREATININE, Serum 0.83 mg/dL 0.50-1.40 eGFR(CKD-EPI 2020) >90 mL/min >60 Aug 02, 2023 12:21 PM [facility] URINALYSIS CLEAN CATCH Specimen Type: URINE Comment: If Glucose = >500 and Ketones are positive, please alert the Physician. Ordering Provider: MELBA DOE Report Released Date/Time: Aug 02, 2023 11:51 AM Reporting Lab: [address] [address] Performing Lab: [address] [address] UA COLOR Yellow Yellow UA APPEARANCE Clear Clear UA GLUCOSE NEGATIVE mg/dL Negative UA KETONES NEGATIVE mg/dL Negative UA BLOOD NEGATIVE mg/dL Negative UA PROTEIN 30 mg/dL Negative UA NITRITE NEGATIVE mg/dL Negative UA BILIRUBIN NEGATIVE mg/dL Negative UA SPECIFIC GRAVITY 1.033 H 1.016-1.02 2 UA pH 6.0 5.0-9.0 UA UROBILINOGEN <2.0 mg/dL <2.0 UA LEUKOCYTE NEGATIVE Negative Aug 02, 2023 12:21 PM [facility] PSA Specimen Type: SERUM No comment entered. Ordering Provider: MELBA DOE Report Released Date/Time: Aug 02, 2023 11:51 AM Reporting Lab: [address] [address] Performing Lab: [address] [address] PSA 1.29 ng/mL 0.00-4.00 Aug 02, 2023 12:21 PM [facility] HEMOGLOBIN A1C PANEL Specimen Type: BLOOD [...] Aug 02, 2023 11:58 AM Reporting Lab: [facility] [address] [facility] [address] Performing Lab: [address] [address] HEMOGLOBIN A1C 5.7 H 4.0-5.6 Aug 02, 2023 12:21 PM [facility] CBC Specimen Type: BLOOD No comment entered. Ordering Provider: MELBA DOE Report Released Date/Time: Aug 02, 2023 11:51 AM Reporting Lab: [facility] [address] [facility] [address] Performing Lab: [address] [address] WBC 5.93 10*3/uL 4.50-11.00 RBC 4.68 10*6/uL 4.23-5.66 HGB 14.6 g/dL 12.8-17 HCT 42.8 39.2-50.4 MCV 91.5 fL 82-99 MCHC 34.1 g/dL 30.8-35.1 PLT 211 10*3/uL 140-360 RDW-CV 12.9 12.0-16.0 MCH 31.2 pg 26.2-32.6 Vital Signs: All taken on the encounter date This section contains inpatient and outpatient Vital Signs collected on the date of the Encounter. Date/Time Temperature Pulse Blood Pressure Respiratory Rate SP02 Pain Height Weight Body Mass Index Source Aug 02, 2023 10:53 AM 97.6 F 65 /min 119/66 mm[Hg] 20 /min 98 % 5 175 lb 26 [facility] Social History: Smoking Status (Most current) and Tobacco Use (All prior to encounter date) This section includes the most current, and the historical, smoking and tobacco- related health factors from the [place] facility where the Encounter took place. Current Smoking Status This section includes the most current smoking, or tobacco-related health factor, from the [place] facility where the Encounter took place. Date/Time Current Smoking Status Comment Nick kowalski Sep 04, 2021 02:56 PM VA-TOBACCO NEVER USED [facility] Encounter Notes: All associated encounter notes This section contains the clinical notes associated to the Encounter. Date/Time Encounter Note(s) Provider Source Aug 02, 2023 10:55 AM [facility] NOTE: LOCAL TITLE: AMBULATORY/OUTPATIENT CARE NOTE STANDARD TITLE: PRIMARY CARE OUTPATIENT NOTE DATE OF NOTE: AUG 02, 2023@10:55 ENTRY DATE: AUG 02, 2023@10:56:03 AUTHOR: MANSI JONES EXP COSIGNER: URGENCY: STATUS: COMPLETED F: Walk-in D: Vet presented as a walk-in requesting to be seen. He says that he is having loose stools and GAS. He says that he has had these symptoms for the past week. He says that he has had intermittent nausea but no Vomiting. He has had no coughing/SOB/CP/H/A. He was given an appt to see PCP @ 1130 today. BMI>30/>24.99 High Risk: Patient and provider agree that current weight is within a healthy range and further discussion is not necessary at this time. At this visit, the health risks of obesity were reviewed and discussed with the , and the benefits of a weight management treatment program, such as MOVE! was discussed and offered to the [place]. New Height and/or Weight Measurement just entered. WT: 175 lbs HT: 69 inches BMI: 25.90 /monisha/ MANSI JONES MSN Ed., BSN CHOPPING MACHINE OPERATOR NURSE Signed: 08/02/2023 11:16 Receipt Acknowledged By: 08/02/2023 11:44 /es/ SEBAS BLACKMAN LPN License Practical Nurse 08/02/2023 12:08 /es/ MELBA DOE D.O. PHYSICIAN MANIS JONES [facility]
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
--- OUTSIDE RECORDS SUMMARY | 2024-07-31 10:36 | XMS_ITS ---
Author Name [facility] Organization [facility] Address [address] [place] [id number] Care Team Providers Care Mma Fighter Name Role Phone NADERMELBA Primary Care Provider [...] PART B Feb 24, 2020 PART B [id number] [phone] STAR DOUGHERTY JR PATIENT MEDICARE (WNR) MEDICARE (M) PART A November 24, 2019 PART A [id number] STAR DOUGHERTY JR PATIENT OFFICE OF [facility] NO-FAULT INSURANCE NO FAULT May 12, 2022 NO FAULT [id number] STAR DOUGHERTY JR PATIENT FOR LIFE TFL* Feb 24, 2020 [id number] STAR DOUGHERTY JR PATIENT [facility] (WNR) TRICA RE(WN R) Jul 26, 2017 (WNR) [id number] ROSALES DOUGHERTY PATIENT Selected Encounter This section includes the information on record at NE for the Encounter. Date/Time Encounter Type Encounter Description Reason Provider Source Aug 31, 2023 08:30 AM OFFICE O/P EST MOD 30 MIN [facility]IC - IND ICD-10-CM F41.9 Anxiety disorder, unspecified TODD STILL E Encounter Template Text not used by NE Assessments - Encounter Diagnoses This section includes the primary and secondary diagnoses documented for the Encounter. Date/Time Primary/Secondary Diagnosis Diagnosis Name Provider Source Mar 20, 2024 10:37 AM PRIMARY Anxiety disorder, unspecified TODD STILL [facility] [place] [facility] Plan of Treatment: Future Appointments (+ 6 months) and Future Tests (+/- 45 days) The Plan of Treatment section includes future care activities for the patient [facility] This section includes future appointments and future orders which are active, pending or scheduled. Future Appointments This section includes appointments that were scheduled to occur 6 months from the date of the Encounter, up to a maximum of 20 appointments. The data comes from all [place] treatment facilities. Appointment Date/Time Appointment Type Appointme nt Facility Name Sep 22, 2023 08:30 AM AMBULATORY - PSYCHIATRY [facility] [place] [facility] Sep 27, 2023 12:45 PM AMBULATORY - MEDICINE [place] [facility] [place] [facility] Oct 14, 2023 09:30 AM AMBULATORY - PSYCHIATRY [facility] [place] [facility] Oct 18, 2023 09:30 AM AMBULATORY - PSYCHIATRY [facility] [place] [facility] Oct 19, 2023 08:30 AM AMBULATORY - MEDICINE [place] [facility] [place] [facility] Oct 20, 2023 08:30 AM AMBULATORY - PSYCHIATRY [facility] [place] [facility] Oct 21, 2023 09:30 AM AMBULATORY - PSYCHIATRY [facility] [place] [facility] Oct 26, 2023 10:00 AM AMBULATORY - MEDICINE [place] [facility] [place] [facility] Oct 26, 2023 12:30 PM AMBULATORY - MEDICINE [place] [facility] [place] [facility] Nov 03, 2023 11:30 AM AMBULATORY - MEDICINE [place] [facility] [place] [facility] Nov 17, 2023 08:30 AM AMBULATORY - PSYCHIATRY [facility] [place] [facility] Nov 19, 2023 12:30 PM AMBULATORY - MEDICINE [place] [facility] [place] [facility] December 02, 2023 03:00 PM AMBULATORY - MEDICINE [place] [facility] [place] [facility] December 06, 2023 09:30 AM AMBULATORY - MEDICINE [place] [facility] [place] [facility] December 09, 2023 01:30 PM AMBULATORY - MEDICINE [place] [facility] [place] [facility] December 09, 2023 03:00 PM AMBULATORY - MEDICINE [place] [facility] [place] [facility] December 14, 2023 10:30 AM AMBULATORY - MEDICINE [place] [facility] [place] [facility] December 14, 2023 01:00 PM AMBULATORY - MEDICINE [place] [facility] [place] [facility] December 16, 2023 08:30 AM AMBULATORY - MEDICINE [place] [facility] [place] [facility] Dec 28, 2023 11:00 AM [facility] Lab Results: +/- 30 days of the encounter This section includes the Chemistry and Hematology Lab Results on record with NE for the patient. Radiology Reports and Pathology Reports are provided separately, in subsequent sections. Lab Results This section contains the Chemistry/Hematology Results that were resulted 30 days before or 30 daysafter the date of the Encounter. Date/Time Source Result Type Result - Unit Interpretation Reference Range Comment Aug 13, 2023 09:09 AM [facility] HLA-B27 (QU) Specimen Type: BLOOD Comment: Test Performed by [facility], [employer] [facility], [address] [place] [address] Paul Martinez M.D., Ph.D., Director of Laboratories , [place] [id number] TEST PERFORMED AT: , Ordering Provider: MARIBEL SHAFER Report Released Date/Time: Aug 12, 2023 09:56 AM Reporting Lab: [facility] [address] [facility] [facility] [address] Performing Lab: [facility] [address] [place] [address] HLA-B27 Negative Negative Aug 13, 2023 09:09 AM [facility] YAJAIRA SCREEN/TITER Specimen Type: SERUM No comment entered. Ordering Provider: MARIBEL SHAFER Report Released Date/Time: Aug 12, 2023 09:56 AM Reporting Lab: [facility] [address] [facility] [facility] [address] Performing Lab: [facility] [address] [address] YAJAIRA SCREEN NEG Aug 13, 2023 09:09 AM [facility] C REACTIVE PROTEIN (CRPH) Specimen Type: [...] Aug 12, 2023 09:56 AM Reporting Lab: [facility] [address] [facility] [facility] [address] Performing [facility]: [facility] [address] [address] C REACTIVE PROTEIN (CRPH) 2.31 mg/L See eval. Aug 13, 2023 09:09 AM [facility] RHEUMATOID FACTOR Specimen Type: SERUM No comment entered. Ordering Provider: MARIBEL SHAFER Report Released Date/Time: Aug 12, 2023 09:56 AM Reporting Lab: [facility] [address] [facility] [facility] [address] Performing [facility]: [facility] [address] [address] RHEUMATOID FACTOR <15 0-15 Aug 13, 2023 09:09 AM [facility] SED RATE, AUTOMATED Specimen Type: BLOOD No comment entered. Ordering Provider: MARIBEL SHAFER Report Released Date/Time: Aug 12, 2023 09:56 AM Reporting Lab: [facility] [address] [facility] [facility] [address] Performing [facility]: [facility] [address] [facility] [address] SED RATE, AUTOMATED <1 mm/h 0-20 Aug 13, 2023 09:09 AM [facility] CPK Specimen Type: SERUM No comment entered. Ordering Provider: MARIBEL SHAFER Report Released Date/Time: Aug 12, 2023 09:56 AM Reporting Lab: [facility] [address] [facility] [facility] [address] Performing Lab: [address] [address] CPK 138 U/L 30-200 Aug 02, 2023 12:21 PM [facility] LIVER FUNCTION Specimen Type: SERUM No comment entered. Ordering Provider: MELBA DOE Report Released Date/Time: Aug 02, 2023 11:51 AM Reporting Lab: [address] [address] Performing Lab: [address] [address] PROTEIN,TOTAL 6.3 g/dL 6.0-8.3 ALBUMIN 4.0 g/dL 3.5-5.0 ALKALINE PHOSPHATASE 93 U/L 40-150 AST 28 U/L 5-34 ALT 32 U/L BILIRUBIN, TOTAL 0.4 mg/dL 0.2-1.2 Aug 02, 2023 12:21 PM [facility] BASIC METABOLIC PANEL (fasting) Specimen Type: SERUM No comment entered. Ordering Provider: MELBA DOE Report Released Date/Time: Aug 02, 2023 11:51 AM Reporting Lab: [address] [address] Performing Lab: [address] [address] UREA NITROGEN 15 mg/dL 7-25 GLUCOSE 91 mg/dL 65-100 SODIUM 140 mmol/L 135-145 POTASSIUM 3.9 mmol/L 3.5-5.0 CHLORIDE 104 mmol/L 100-110 CO2 28 meq/L 20-30 CREATININE, Serum 0.83 mg/dL 0.50-1.40 eGFR(CKD-EPI 2020) >90 mL/min >60 Aug 02, 2023 12:21 PM [facility] URINALYSIS CLEAN CATCH Specimen Type: URINE Comment: If Glucose = >500 and Ketones are positive, please alert the Physician. Ordering Provider: MELBA DOE Report Released Date/Time: Aug 02, 2023 11:51 AM Reporting Lab: [address] [address] Performing Lab: [address] [address] UA COLOR Yellow Yellow UA APPEARANCE Clear Clear UA GLUCOSE NEGATIVE mg/dL Negative UA KETONES NEGATIVE mg/dL Negative UA BLOOD NEGATIVE mg/dL Negative UA PROTEIN 30 mg/dL Negative UA NITRITE NEGATIVE mg/dL Negative UA BILIRUBIN NEGATIVE mg/dL Negative UA SPECIFIC GRAVITY 1.033 H 1.016-1.02 2 UA pH 6.0 5.0-9.0 UA UROBILINOGEN <2.0 mg/dL <2.0 UA LEUKOCYTE NEGATIVE Negative Aug 02, 2023 12:21 PM [facility] PSA Specimen Type: SERUM No comment entered. Ordering Provider: MELBA DOE Report Released Date/Time: Aug 02, 2023 11:51 AM Reporting Lab: [address] [address] Performing Lab: [address] [address] PSA 1.29 ng/mL 0.00-4.00 Aug 02, 2023 12:21 PM [facility] HEMOGLOBIN A1C PANEL Specimen Type: BLOOD [...] Aug 02, 2023 11:58 AM Reporting Lab: [facility] [address] [facility] [facility] [address] Performing [facility]: [facility] [address] [facility] [address] HEMOGLOBIN A1C 5.7 H 4.0-5.6 Aug 02, 2023 12:21 PM [facility] CBC Specimen Type: BLOOD No comment entered. Ordering Provider: MELBA DOE Report Released Date/Time: Aug 02, 2023 11:51 AM Reporting Lab: [facility] [address] [facility] [facility] [address] Performing [facility]: [facility] [address] [address] WBC 5.93 10*3/uL 4.50-11.00 RBC 4.68 10*6/uL [...] and tobacco- related health factors from the NE facility where the Encounter took place. Current Smoking Status This section includes the most current smoking, or tobacco-related health factor, from the NE facility where the Encounter took place. Date/Time Current Smoking Status Comment Nick kowalski Sep 04, 2021 02:56 PM [facility]BACCO [facility]ED [facility] Encounter Notes: All associated encounter notes This section contains the clinical notes associated to the Encounter. Date/Time Encounter Note(s) Provider Source Aug 31, 2023 09:04 AM PRIMARY CARE NURSE PRACTITIONER OUTPATIENT NOTE: LOCAL TITLE: NURSE PRACTITIONER OUTPATIENT NOTE STANDARD TITLE: PRIMARY CARE NURSE PRACTITIONER OUTPATIENT NOTE DATE OF NOTE: AUG 31, 2023@09:04 ENTRY DATE: AUG 31, 2023@09:04:43 AUTHOR: JOSE F STILLIGNER: URGENCY: STATUS: COMPLETED OUTPATIENT MENTAL HEALTH CLINIC: FOLLOW-UP HPI: STAR DOUGHERTY Crys COLEMAN, a 67 y/o male Snowflake previously diagnosed with Generalized Anxiety Disorder with Panic Attacks presents for [facility] Follow-Up appointment. Last seen by This Provider on 08/13/23 reports Anxiety is still there but manageable. Tolerated reinitiation of fluoxetine and increase 40 MG. Appetite is pretty good. I eat a lot. Concentration is reduced. Difficulty with complex projects involving multiple steps. Attributes poor concentration to anxiety related to his 's medical condition. Notes that he Used to like to read a lot, but now I won't read an article if it's more than a 1 minute read. Denies family history of Alzheimer's Disease Denies problems with memory. Sleeps two hours at a time, wakes up. Shifts around a lot. Only sleeps around 6 hours per night, total, and finds that sleep is disrupted. Back, neck and shoulder pain all disrupt sleep and contribute to other MH symptoms, per . Scheduled to start alpha stim and acupuncture soon. Denies auditory or visual hallucinations, paranoia or delusions. Denies any recent episodes of brissa/hypomania and specifically denies discrete episodes of increased energy, irritability, impulsivity and/or expansive affect lasting several days. explicitly and convincingly denied SI, intent or plan and denied thoughts of harming others. SUBSTANCE USE HISTORY: Tobacco: denied Alcohol: denied Narcotics: denied Cannabis: denied PREVIOUS PSYCHIATRIC HISTORY: Medication trials: lorazepam 0.5 mg PRN busPIRone 15 mg BID FLUoxetine 40 mg daily hydrOXYzine 25 mg (cannot remember taking this medication) sertraline (diarrhea) FAMILY MENTAL HEALTH AND SUBSTANCE USE HISTORY: Brother and two sisters who drink ETOH excessively, possibly also father MEDICAL HISTORY: Active Problem Cervical radiculopathy M54.12 08/12/2023 MARIBEL SHAFER Tinnitus H93.19, Onset 05/31/2023November,BERTO Johnson Pain R52., Onset 05/31/2023November,BERTO Johnson Coronary arteriosclerosis I25.10, O 06/16/2023November,BERTO Johnson Anxiety F41.9, Onset 09/04/2021November,BERTO Johnson Benign prostatic hyperplasia N40.1, 06/16/2023 MELBA DOE ALLERGIES: Data on this list may not be complete. Please check JLV. FACILITY ALLERGY/ADR -------- No Remote Allergy/ADR Data available for this patient [facility] [place] [facility] No Known Allergies MEDICATIONS: reviewed and updated in CPRS Active Outpatient Medications (including Supplies): Active Outpatient Medications Status 1) BUSPIRONE HCL 10MG TAB TAKE ONE TABLET BY MOUTH ONCE ACTIVE DAILY 2) LORAZEPAM 0.5MG TAB TAKE ONE TABLET BY MOUTH ONCE ACTIVE DAILY NEEDED FOR ANXIETY/PANIC 3) ONDANSETRON HCL 8MG TAB TAKE ONE TABLET BY MOUTH ACTIVE TWICE DAILY NEEDED Pending Outpatient Medications Status 1) BUSPIRONE HCL 10MG TAB TAKE ONE TABLET BY MOUTH ONCE PENDING DAILY 2) FLUOXETINE HCL 20MG CAP TAKE THREE CAPSULES BY MOUTH PENDING ONCE DAILY FOR DEPRESSION AND ANXIETY 3) LORAZEPAM 0.5MG TAB TAKE ONE TABLET BY MOUTH ONCE PENDING DAILY NEEDED FOR ANXIETY/PANIC Active Non-VA Medications Status 1) Non-VA ATORVASTATIN CALCIUM 40MG TAB 20MG BY MOUTH ACTIVE ONCE DAILY 7 Total Medications Appearance: consistent w/ stated age, appropriate grooming and hygiene; visibly anxious Behavior: polite and cooperative Motor: ambulates slowly, grimaces due to pain, has to readjust himself in seat and stand up occasionally due to pain. Frequently fidgets No tics, tremors, or abnormal movements Speech: normal rate, volume and articulation Thought process: logical, linear and coherent Thought content: denies hallucinations, delusions, or paranoia. Denies homicidal thoughts. Denies suicidal ideation, intent or plan to harm self. Insight and Judgment: both intact Cognition: alert and oriented x 3; attention and concentration grossly wnl but at the lower end of average range, memory grossly intact to conversational testing Mood: anxious Affect: mood congruent LABS AND STUDIES: HLA B27: Negative ANTINUCLEAR ANTIBODY: NEG RHEUM FACT (WR): <15 CRP HI SENSITIVITY (WR): 2.31 CPK: 138 SED RATE AUTO: <1 HGB A1C (WR): 5.7 H WBC: 5.93 RBC: 4.68 HGB: 14.6 HCT: 42.8 MCV: 91.5 MCHC: 34.1 RDW: 12.9 PLT: 211 MCH: 31.2 Color, Urine (AX 4280): Yellow Appearance, Urine (AX 4280): Clear Glucose, Urine (AX 4280): NEGATIVE Ketones, Urine (AX 4280): NEGATIVE Blood, Urine (AX 4280): NEGATIVE Protein, Urine (AX 4280): 30 Nitrite, Urine (AX 4280): NEGATIVE Bilirubin, Urine (AX 4280): NEGATIVE Specific [place], (AX 4280): 1.033 H pH, Urine ([id number]): 6.0 Urobilinogen, Urine (AX 4280): <2.0 Leukocyte Esterase, (AX 4280): NEGATIVE GLUCOSE: 91 UREA NITROGEN: 15 SODIUM: 140 POTASSIUM: 3.9 CHLORIDE: 104 CO2: 28 PROTEIN,TOTAL: 6.3 ALBUMIN: 4.0 ALKALINE PHOSPHATASE: 93 SGOT: 28 SGPT: 32 PROSTATIC SP ANTIGEN: 1.29 BILIRUBIN,TOT.: 0.4 CREATININE-EGFR: 0.83 eGFR CKD-EPI 2020: >90 SAFETY ASSESSMENT: No acute safety concerns. Convincingly denies any thoughts, intents, or plans to harm self or others. Chronic risk is elevated by status and mental illness but is currently mitigated by participation in treatment and demonstration of help-seeking behaviors. IMPRESSION: Snowflake presents as polite, cooperative and treatment motivated Reports adherence to current medications with modest therapeutic benefit and denies side effects. Reports desire to continue with current pharmacotherapy regimen. Discussed increasing fluoxetine to 60 MG, the upper end of the standard therapeutic range in the hopes of further reduction in symptoms of anxiety. Will follow-up again in three weeks to assess response and further explore additional treatment options. Gabapentin and mirtazapine were both discussed at length today. Mirtazapine carries the disadvantage of possible increased appetite and weight gain. Gabapentin is off label for anxiety and insomnia and TID dosing might be a challenge given 's prior difficulties with BID buspirone. However, co- occurring chronic gain and favorable therapeutic response to PRN lorazepam indicate that trial of gabapentin might be logical next step in treatment planning. No acute safety concerns Diagnosis: Generalized Anxiety Disorder with Panic Attacks F41.1 Meds: 1) CONTINUE lorazepam 0.5 mg PO PRN 2) CONTINUE BUSPIRONE, 10 MG DAILY 3) INCREASE FLUoxetine FROM 40 mg TO 60 MG PO DAILY Labs: NONE TODAY Follow-Up: 09/22/23 Discussed risks and benefits of proposed medication treatments including FDA approved indications and off-label uses, as well as common and severe side effects. comprehended all information discussed, had opportunity to ask questions which were answered to their satisfaction, and voluntarily and without duress agreed to trial as documented. CONTACT AND CRISIS INFO: Snowflake informed that This Provider can be contacted at , [phone] or via Secure Messaging. We have reviewed the Crisis Hotline (803, dial #1 for line), and the has been instructed to call 911 or go to the nearest ED if acutely suicidal or experiencing a mental health emergency. INFORMED CONSENT REVIEWED: At beginning of session reviewed rights and limits of confidentiality, mandatory reporting situations, duty to warn and protect, risk of suicide or homicide, potential elder or child abuse/neglect and White Warning, (if treatment team finds patient to be an acute danger to himself or others, that this information could be relayed to a court of law and presented to a welder pipe making), and DOD access for active-duty service members. CODING: Total time today was 30 minutes, which included an in-person visit with the patient, providing counseling and education, and time spent reviewing the record, ordering meds, completing documentation, and coordinating care. CLINICAL REMINDERS: Medication Reconciliation: Outpatient: Has the patient been taking medications as documented in the EMLR? YES: The patient has been taking medications as documented in the EMLR. Essential Medication List for Review used to complete this medication reconciliation. INCLUDED IN THIS LIST: Alphabetical list of active outpatient prescriptions dispensed from this [facility] (local) and dispensed from another VA or DoD facility (remote) as well as inpatient orders (local, pending and active), local clinic medications, locally documented non-VA medications, and local prescriptions that have or been discontinued in the past 90 days. - All changes in medications, including all non-VA/Herbal/OTC medications were entered into CPRS. - If there were any medications the patient should no longer take, they were discontinued. - The patient/caregiver was instructed to update this list, discard old lists, and take this list to the next appointment, whether with a VA or non-VA provider. /[email or web address]/ JOSE F STILL Psychiatric Mental Health Nurse Practitioner Signed: 08/31/2023 09:18 JOSE F STILL [facility] [place] [facility] Aug 31, 2023 08:56 AM ACCOUNTING OF DISCLOSURES NOTE: LOCAL TITLE: STATE PRESCRIPTION DRUG MONITORING PROGRAM STANDARD TITLE: ACCOUNTING OF DISCLOSURES NOTE DATE OF NOTE: AUG 31, 2023@08:56:29 ENTRY DATE: AUG 31, 2023@08:56:29 AUTHOR: JOSE F STILL EXP COSIGNER: URGENCY: STATUS: COMPLETED This PDMP query was submitted by Jose F Still. The clinical justification for this PDMP query is to review controlled substances prescribed outside of the VA, and any additional information that may become available, as an important component of standard clinical care, and in accordance with [facility] policy. Patient information was shared with the PDMP [place]. No prescription(s) for controlled substances outside the VA were found in the last 90 days. /[email or web address]/ JOSE F STILL Psychiatric Mental Health Nurse Practitioner Signed: 08/31/2023 08:59 JOSE F STILL [facility]
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
--- OUTSIDE RECORDS SUMMARY | 2024-07-31 10:36 | XMS_ITS | Encounter Summary ---
Author Name [place] Address [address] [place] [id number] Care Team Providers Care Swimming Professor Name Role Phone NADERMELBA Primary Care Provider [...] PART B Feb 24, 2020 PART B [id number] STAR DOUGHERTY JR PATIENT MEDICARE (WNR) MEDICARE (M) PART A November 24, 2019 PART A [id number] STAR DOUGHERTY JR PATIENT OFFICE OF [facility] NO-FAULT INSURANCE NO FAULT May 12, 2022 NO FAULT [id number] STAR DOUGHERTY JR PATIENT FOR LIFE TFL* Feb 24, 2020 [id number] [phone] STAR DOUGHERTY JR PATIENT [facility] (WNR) TRICA RE(WN R) Jul 26, 2017 (WNR) [id number] [phone] ROSALES DOUGHERTY PATIENT Selected Encounter This section includes the information on record at [place] for the Encounter. Date/Time Encounter Type Encounter Description Reason Provider Source Aug 13, 2023 08:30 AM OFFICE O/P EST MOD 30 MIN [facility]IC - IND ICD-10-CM F41.1 Generalized anxiety disorder TODD MOY [facility] Encounter Template Text not used by [place] Assessments - Encounter Diagnoses This section includes the primary and secondary diagnoses documented for the Encounter. Date/Time Primary/Secondary Diagnosis Diagnosis Name Provider Source Mar 20, 2024 10:16 AM PRIMARY Generalized anxiety disorder TODD MOY [place] [facility] [facility] [facility] Plan of Treatment: Future Appointments (+ 6 months) and Future Tests (+/- 45 days) The Plan of Treatment section includes future care activities for the patient from all [place] [facility] This section includes future appointments [...] 30, 2023 10:00 AM AMBULATORY [place]ICINE [place] [facility] [place] [facility] Aug 30, 2023 10:30 AM AM[place]ULATORY [place] [facility] [facility] Aug 31, 2023 08:30 AM AMBULATORY - PS[place]IATRY [place] [facility] [place] [facility] Sep 22, 2023 08:30 AM AMBULATORY - PS[place]CHIATRY [place] [facility] [place] [facility] Sep 27, 2023 12:45 PM AM[place]ULATORY [place]INE [place] [facility] [facility] Oct 14, 2023 09:30 AM AMBULATORY - PS[facility]CHIATRY [place] [facility] [place] [facility] Oct 18, 2023 09:30 AM AMBULATORY - PS[facility]CHIATRY [place] [facility] [place] [facility] Oct 19, 2023 08:30 AM AMBULATORY - MEDICINE [place] [facility] [facility] Oct 20, 2023 08:30 AM AMBULATORY - PS[place]CHIATRY [place] [facility] [place] [facility] Oct 21, 2023 09:30 AM AMBULATORY - PS[place]CHIATRY [place] [facility] [place] [facility] Oct 26, 2023 10:00 AM AM[place]ULATORY [place] [facility] [facility] Oct 26, 2023 12:30 PM AM[place]UL[place]ORY [place]INE [place] [facility] Nov 03, 2023 11:30 AM AM[place]ULATORY [place]INE [place] [facility] Nov 17, 2023 08:30 AM AMBUL[place]ORY [place] [facility] [place] [facility] Nov 19, 2023 12:30 PM AM[place]ULATORY [place]INE [place] [facility] [facility] December 02, 2023 03:00 PM AM[place]UL[place]ORY [place]INE [place] [facility] [facility] December 06, 2023 09:30 AM AM[place]ORY [place] [facility] [facility] December 09, 2023 01:30 PM AM[place]UL[place]ORY [place]INE [place] [facility] [facility] December 09, 2023 03:00 PM AM[place]UL[place]ORY [place] [facility] [place] [facility] December 14, 2023 10:30 AM [place] [facility] Lab Results: +/- 30 days of [...] Range Comment Aug 13, 2023 09:09 AM [facility] HLA-B27 (QU) Specimen Type: BLOOD Comment: Test Performed by [facility], Dapper [facility] [place], [address] [place] [address] Paul Martinez M.D., Ph.D., Director of Laboratories , CLIA [id number] TEST PERFORMED AT: , Ordering Provider: MARIBEL SHAFER Report Released Date/Time: Aug 12, 2023 09:56 AM Reporting Lab: [facility] WSN [facility] [address] [facility] [address] Performing Lab: [facility] [address] [address] HLA-B27 Negative Negative Aug 13, 2023 09:09 AM [facility] YAJAIRA SCREEN/TITER Specimen Type: SERUM No comment entered. Ordering Provider: MARIBEL SHAFER Report Released Date/Time: Aug 12, 2023 09:56 AM Reporting Lab: [facility] [address] [facility] [address] Performing Lab: [facility]ERN [facility] [address] [facility] [address] YAJAIRA SCREEN NEG Aug 13, 2023 09:09 AM [facility] C REACTIVE PROTEIN (CRPH) Specimen Type: [...] 2023 09:56 AM Reporting Lab: [facility]TRN [facility] [address] [facility] [address] Performing Lab: [facility] [address] [facility] [address] C REACTIVE PROTEIN (CRPH) 2.31 mg/L See eval. Aug 13, 2023 09:09 AM [facility] RHEUMATOID FACTOR Specimen Type: SERUM No comment entered. Ordering Provider: MARIBEL SHAFER Report Released Date/Time: Aug 12, 2023 09:56 AM Reporting Lab: [facility]TRN [facility] [address] [facility] [address] Performing Lab: [facility]ITAL[facility]IB[facility]ERN [facility]ITAL[facility] [address] [facility] [address] RHEUMATOID FACTOR <15 0-15 Aug 13, 2023 09:09 AM [facility] SED RATE, AUTOMATED Specimen Type: BLOOD No comment entered. Ordering Provider: MARIBEL SHAFER Report Released Date/Time: Aug 12, 2023 09:56 AM Reporting Lab: [facility] [address] [facility] [address] Performing Lab: [facility]N [address] [address] SED RATE, AUTOMATED <1 mm/h 0-20 Aug 13, 2023 09:09 AM [facility] CPK Specimen Type: SERUM No comment entered. Ordering Provider: MARIBEL SHAFER Report Released Date/Time: Aug 12, 2023 09:56 AM Reporting Lab: [facility] [address] [facility] [address] Performing Lab: [address] [address] CPK 138 U/L 30-200 Aug 02, 2023 12:21 PM [facility] LIVER FUNCTION Specimen Type: SERUM No comment entered. Ordering Provider: MELBA DOE Report Released Date/Time: Aug 02, 2023 11:51 AM Reporting Lab: [address] [address] Performing Lab: [address] [address] PROTEIN,TOTAL 6.3 g/dL 6.0-8.3 ALBUMIN 4.0 g/dL 3.5-5.0 ALKALINE PHOSPHATASE 93 U/L 40-150 AST 28 U/L 5-34 ALT 32 U/L BILIRUBIN, TOTAL 0.4 mg/dL 0.2-1.2 Aug 02, 2023 12:21 PM [facility] BASIC METABOLIC PANEL (fasting) Specimen Type: SERUM No comment entered. Ordering Provider: MELBA DOE Report Released Date/Time: Aug 02, 2023 11:51 AM Reporting Lab: [address] [address] Performing Lab: [address] [address] UREA NITROGEN 15 mg/dL 7-25 GLUCOSE 91 mg/dL 65-100 SODIUM 140 mmol/L 135-145 POTASSIUM 3.9 mmol/L 3.5-5.0 CHLORIDE 104 mmol/L 100-110 CO2 28 meq/L 20-30 CREATININE, Serum 0.83 mg/dL 0.50-1.40 eGFR(CKD-EPI 2020) >90 mL/min >60 Aug 02, 2023 12:21 PM [facility] URINALYSIS CLEAN CATCH Specimen Type: URINE Comment: If Glucose = >500 and Ketones are positive, please alert the Physician. Ordering Provider: MELBA DOE Report Released Date/Time: Aug 02, 2023 11:51 AM Reporting Lab: [address] [address] Performing Lab: [address] [address] UA COLOR Yellow Yellow UA APPEARANCE Clear Clear UA GLUCOSE NEGATIVE mg/dL Negative UA KETONES NEGATIVE mg/dL Negative UA BLOOD NEGATIVE mg/dL Negative UA PROTEIN 30 mg/dL Negative UA NITRITE NEGATIVE mg/dL Negative UA BILIRUBIN NEGATIVE mg/dL Negative UA SPECIFIC GRAVITY 1.033 H 1.016-1.02 2 UA pH 6.0 5.0-9.0 UA UROBILINOGEN <2.0 mg/dL <2.0 UA LEUKOCYTE NEGATIVE Negative Aug 02, 2023 12:21 PM [facility] PSA Specimen Type: SERUM No comment entered. Ordering Provider: MELBA DOE Report Released Date/Time: Aug 02, 2023 11:51 AM Reporting Lab: [address] [address] Performing Lab: [address] [address] PSA 1.29 ng/mL 0.00-4.00 Aug 02, 2023 12:21 PM [facility] HEMOGLOBIN A1C PANEL Specimen Type: BLOOD [...] Aug 02, 2023 11:58 AM Reporting Lab: [facility]ERN [facility] [address] [facility] [address] Performing Lab: [facility] [address] [facility] [address] HEMOGLOBIN A1C 5.7 H 4.0-5.6 Aug 02, 2023 12:21 PM [facility]N [facility] CBC Specimen Type: BLOOD No comment entered. Ordering Provider: MELBA DOE Report Released Date/Time: Aug 02, 2023 11:51 AM Reporting Lab: [facility]N [facility] [address] [facility] [address] Performing Lab: [facility]N [facility] [address] [facility] [address] WBC 5.93 10*3/uL 4.50-11.00 RBC 4.68 10*6/uL [...] 04, 2021 02:56 PM VA-TOBACCO NEVER USED [facility] Encounter Notes: All associated encounter notes This section contains the clinical notes associated to the Encounter. Date/Time Encounter Note(s) Provider Source Aug 13, 2023 08:33 AM PRIMARY CARE NURSE PRACTITIONER OUTPATIENT NOTE: LOCAL TITLE: NURSE PRACTITIONER OUTPATIENT NOTE STANDARD TITLE: PRIMARY CARE NURSE PRACTITIONER OUTPATIENT NOTE DATE OF NOTE: AUG 13, 2023@08:33 ENTRY DATE: AUG 13, 2023@08:33:53 AUTHOR: YANCY MOY EXP COSIGNER: URGENCY: STATUS: COMPLETED OUTPATIENT MENTAL HEALTH CLINIC: FOLLOW-UP HPI: LADONNATONYLYNNE Spangler JR, a y/o male previously diagnosed Panic Disorder and anxiety disorder, unspecified presents for [facility] Follow-Up appointment. Last seen by This Provider on 07/09/23 [facility] discontinued sertraline 3 days ago and is still having diarrhea which has impacted his ability to travel and navigate outside of the house. Took sertraline with food. Denies noticeable change in mood with sertraline at 50 mg, 100 mg or since discontinuation 3 days ago. is awaiting liver transplant and her medical concerns has been a particular source of anxiety. Taking PRN lorazepam as prescribed, but mor frequently than previously. Reports Feel like I'm in pre-panic attack mode, using more of the lorazepam. Also concerns about memory, such as Wearing two different shoes that looked similar. 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 Appetite is poor Not sleeping because of anxiety. Not quite having panic attacks like I used to, but I'm getting pretty close. [facility] explicitly and convincingly denied SI, intent or [...] H93.19, Onset 05/31/2023November,BERTO Johnson Pain R52., Onset 05/31/2023NovemberBERTO Coronary arteriosclerosis I25.10, O 06/16/2023NovemberBERTO Anxiety F41.9, Onset 09/04/2021NovemberBERTO Benign prostatic hyperplasia N40.1, 06/16/2023 FURCOLO,MELBA ALLERGIES: Data on this list may not be complete. Please check JLV. FACILITY ALLERGY/ADR -------- No Remote Allergy/ADR Data available for this patient [place] [facility] [place] [facility] No Known Allergies [...] TABLET BY MOUTH ACTIVE TWICE DAILY NEEDED 4) SERTRALINE HCL 100MG TAB TAKE ONE-HALF TABLET BY ACTIVE MOUTH ONCE DAILY FOR 7 DAYS, THEN TAKE ONE TABLET ONCE DAILY Active Non-VA Medications Status 1) Non-VA ATORVASTATIN CALCIUM 40MG TAB 20MG BY MOUTH ACTIVE ONCE DAILY 5 Total Medications MENTAL STATUS EXAM: Appearance: consistent w/ stated age, approriate grooming and hygiene; visibly anxious Behavior: polite and cooperative Motor: ambulates slowly, grimaces due to pain, has to readjust himself in seat and stand up occassionally due to pain. Frequently fidgets No tics, tremors, or abnormal movements Speech: normal rate, volume and articulation Thought process: logical, linear and coherent Thought content: denies hallucinations, delusions, or paranoia. Denies homicidal thoughts. Denies suicidal ideation, intent or plan to harm self. Insight and Judgment: both intact Cognition: alert and oriented x 3, good attention, memory grossly intact to conversational testing Mood: anxious Affect: mood congruent LABS AND STUDIES: B A1C (WR): 5.7 H WBC: 5.93 RBC: 4.68 HGB: 14.6 HCT: 42.8 MCV: 91.5 MCHC: 34.1 RDW: 12.9 PLT: 211 MCH: 31.2 Color, Urine (AX 4280): Yellow Appearance, Urine (AX 4280): Clear Glucose, Urine (AX 4280): NEGATIVE Ketones, Urine (AX 4280): NEGATIVE Blood, Urine (AX 4280): NEGATIVE Protein, Urine (AX 4280): 30 Nitrite, Urine (AX 4280): NEGATIVE Bilirubin, Urine (AX 4280): NEGATIVE Specific [place], (AX 4280): 1.033 H pH, Urine (LQ3791): 6.0 Urobilinogen, Urine (AX 4280): <2.0 Leukocyte Esterase, (AX 4280): NEGATIVE GLUCOSE: 91 UREA NITROGEN: 15 SODIUM: 140 POTASSIUM: 3.9 CHLORIDE: 104 CO2: 28 PROTEIN,TOTAL: 6.3 ALBUMIN: 4.0 ALKALINE PHOSPHATASE: 93 SGOT: 28 SGPT: 32 PROSTATIC SP ANTIGEN: 1.29 BILIRUBIN,TOT.: 0.4 CREATININE-EGFR: 0.83 eGFR CKD-EPI 2020: >90 WBC: 7.13 RBC: 5.16 HGB: 16.0 HCT: 48.0 MCV: 93.0 MCHC: 33.3 RDW: 12.9 PLT: 247 MCH: 31.0 GLUCOSE: 109 H UREA NITROGEN: 16 SODIUM: 138 POTASSIUM: 5.0 CHLORIDE: 102 CO2: 28 CHOLESTEROL: 221 H PROTEIN,TOTAL: 7.2 ALBUMIN: 4.3 ALKALINE PHOSPHATASE: 117 SGOT: 16 SGPT: 17 TRIGLYCERIDE: 260 H LDL CHOL: 129 CHOL/HDL RATIO: 5.5 HDL: 40 BILIRUBIN,TOT.: 0.5 TSH (Access): 2.06 CREATININE-EGFR: 0.89 eGFR CKD-EPI 2020: >90 SAFETY ASSESSMENT: No acute safety concerns. Convincingly denies any thoughts, intents, or plans to harm self or others. Chronic risk is elevated by status and mental illness but is currently mitigated by participation in treatment and demonstration of help-seeking behaviors. IMPRESSION: Sycamore's switch to sertraline to address residual symptoms of anxiety clearly was not a success and [facility] was very patient and understanding when This Provider apologized for the lack of improvement in symptoms of anxiety coupled with distressing side effects. Response to fluoxetine, 40 mg had been suboptimal (which motivated the switch) but given side effects reinitiation of fluoxetine appears to be the best course of action. Discuss mirtazapine and gabapentin at follow-up should sleep and anxiety continue to present significant difficulties. Also consider increasing fluoxetine to maximum tolerated dose. is awaiting liver transplant and the stress surrounding this had clearly contributed to anxiety. No acute safety concerns Diagnosis: Generalized Anxiety Disorder with Panic Attacks F41.1 Meds: 1) CONTINUE lorazepam 0.5 mg PO PRN 2) CONTINUE BUSPIRONE, 10 MG DAILY 3) RE-INITIATE FLUoxetine 20 MG PO DAILY FOR SEVEN DAYS THEN INCREASE TO 40 mg PO DAILY daily 4) DISCONTINUE SERTRALINE Follow-Up: RTC for 08/30/23 Discussed risks and benefits of proposed medication treatments including FDA approved indications and off-label uses, as well as common and severe side effects. comprehended all information discussed, had opportunity to ask questions which were answered to their satisfaction, and voluntarily and without duress agreed to trial as documented. CONTACT AND CRISIS INFO: [facility] informed that This Provider can be contacted at , EXT [phone] or via Secure Messaging. 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 [...] of active outpatient prescriptions dispensed from this [place] (local) and dispensed from another [place] or [facility] facility (remote) as well as inpatient orders [...] with a VA or non-VA provider. /monisha/ YANCY MOY Psychiatric Mental Health Nurse Practitioner Signed: 08/13/2023 09:34 YANCY MOY [place] [facility] [facility]
--- OUTSIDE RECORDS SUMMARY | 2024-07-31 10:37 | XMS_ITS | Encounter Summary ---
Author Name [place] Address [address] [place] [id number] Care Team Providers Care Pipe Buffer Name Role Phone MELBA DOE Primary Care [...] PART B Feb 24, 2020 PART B [id number] [phone] LADONNA COLEMANTONYLYNNE PATIENT MEDICARE (WNR) MEDICARE (M) PART A November 24, 2019 PART A [id number] DOUGHERTY STAR COLEMAN PATIENT OFFICE OF [facility] OFFSIDER NO-FAULT INSURANCE NO FAULT May 12, 2022 NO FAULT [id number] LADONNA COLEMANSTAR PATIENT FOR LIFE TFL* Feb 24, 2020 [id number] STAR DOUGHERTY JR PATIENT [facility] (WNR) TRICA RE(WN R) Jul 26, 2017 (WNR) [id number] [phone] ROSALES DOUGHERTY [place] PATIENT Selected Encounter This section includes the information on record at [place] for the Encounter. Date/Time Encounter Type Encounter Description Reason Pro vider Source Sep 29, 2023 10:36 AM Outpatient Encounter COMMUNITY CARE CONSULT IHE Encounter Template Text not used by [place] Plan of Treatment: Future Appointments (+ 6 months) and Future Tests (+/- 45 days) The Plan of Treatment section includes future care activities for the patient from all [place] [facility] [facility]. This section includes future appointments and future orders which are active, pending or scheduled. Future Appointments This section includes appointments that were scheduled to occur 6 months from the date of the Encounter, up to a maximum of 20 appointments. The data comes from all [place] treatment facilities. Appointment Date/Time Appointment Type Appointme nt Facility Name Oct 14, 2023 09:30 AM AMBULATORY - [facility]IATRY [facility] [place] [facility] Oct 18, 2023 09:30 AM AMBULATORY - PS[facility]CHIATRY [facility] [place] [facility] Oct 19, 2023 08:30 AM AMBULATORY - MEDICINE [place] [facility] [place] [facility] Oct 20, 2023 08:30 AM AMBULATORY - PSYCHIATRY [facility] [place] [facility] Oct 21, 2023 09:30 AM AMBULATORY - PS[facility]CHIATRY [facility] [place] [facility] Oct 26, 2023 10:00 AM AMBULATORY - MEDICINE [place] [facility] [place] [facility] Oct 26, 2023 12:30 PM AMBULATORY - MEDICINE [place] [facility] [place] [facility] Nov 03, 2023 11:30 AM AMBULATORY - MEDICINE [facility] [place] [facility] Nov 17, 2023 08:30 AM AMBULATORY - PSYCHIATRY [facility] [place] [facility] Nov 19, 2023 12:30 PM AMBULATORY - MEDICINE [facility] [place] [facility] December 02, 2023 03:00 PM AMBULATORY - MEDICINE [facility] [place] [facility] December 06, 2023 09:30 AM AMBULATORY - MEDICINE [place] [facility] [place] [facility] December 09, 2023 01:30 PM AMBULATORY - MEDICINE [facility] [place] [facility] December 09, 2023 03:00 PM AMBULATORY - MEDICINE [place] [facility] [place] [facility] December 14, 2023 10:30 AM AMBULATORY - MEDICINE [place] [facility] [facility] December 14, 2023 01:00 PM AMBULATORY - MEDICINE [place] [facility] [facility] December 16, 2023 08:30 AM AMBULATORY [place]ICINE [place] [facility] [facility] Dec 28, 2023 11:00 AM AMBULATORY [place]ICINE [place] [facility] [facility] Dec 29, 2023 10:00 AM AMBULATORY - MEDICINE [facility] [place] [facility] Dec 29, 2023 11:00 AM AMBULATORY - MEDICINE [facility] N[facility] Social History: Smoking Status (Most current) [...] place. Date/Time Current Smoking Status Comment Facil ity Sep 04, 2021 02:56 PM VA-TOBACCO [facility] Encounter Notes: All associated encounter notes This section contains the clinical notes associated to the Encounter. Date/Time Encounter Note(s) Provider Source Sep 29, 2023 10:36 AM ADMINISTRATIVE NOTE: LOCAL TITLE: ADMINISTRATIVE NOTE STANDARD TITLE: ADMINISTRATIVE NOTE DATE OF NOTE: SEP 29, 2023@10:36 ENTRY DATE: SEP 29, 2023@10:36:35 AUTHOR: PALOMO BARBER COSIGNER: URGENCY: STATUS: COMPLETED New referral for CC-BH Psychotherapy needed for new CC Vendor. Previous suggested Vendor didn't contact or schedule . Please enter a consult for the following CC Vendor: Mago Sevilla ( call first) [address] [address] PH:[phone] 2nd /monisha/ PALOMO BARBER Signed: 09/29/2023 10:38 Receipt Acknowledged By: 10/08/2023 11:36 /es/ ELODIA AGMEZ, PhD Clinical Psychologist 09/29/2023 10:47 /es/ MELBA DOE D.O. PHYSICIAN [facility]O BARBER [facility]
--- OUTSIDE RECORDS SUMMARY | 2024-07-31 10:37 | XMS_ITS | Encounter Summary ---
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 Date/Time Encounter Type Encounter Description Reason Pro vider Source Oct 25, 2023 11:25 AM Outpatient Encounter PAIN CLINIC IHE Encounter Template Text not used by [place] Plan of Treatment: Future Appointments (+ 6 months) and Future Tests (+/- 45 days) The Plan of Treatment section includes future care activities for the patient from all [place] [facility] This section includes future appointments and future orders which are active, pending or scheduled. Future Appointments This section includes appointments that were scheduled to occur 6 months from the date of the Encounter, up to a maximum of 20 appointments. The data comes from all [place] treatment facilities. Appointment Date/Time Appointment Type Appointme nt Facility Name Oct 26, 2023 10:00 AM AMBULATORY [facility] [place] [facility] Oct 26, 2023 12:30 PM AMBULATORY - MEDICINE [facility] [place] [facility] Nov 03, 2023 11:30 AM AMBULATORY - MEDICINE [facility] [place] [facility] Nov 17, 2023 08:30 AM AMBULATORY - PS[facility]CHIATRY [facility] [place] [facility] Nov 19, 2023 12:30 PM AMBULATORY - MEDICINE [facility] [place] [facility] December 02, 2023 03:00 PM AMBULATORY - MEDICINE [facility] [place] [facility] December 06, 2023 09:30 AM AMBULATORY - MEDICINE [facility] [place] [facility] December 09, 2023 01:30 PM AMBULATORY - MEDICINE [facility] [place] [facility] December 09, 2023 03:00 PM AMBULATORY - MEDICINE [facility] [place] [facility] December 14, 2023 10:30 AM AMBULATORY - MEDICINE [facility] [place] [facility] December 14, 2023 01:00 PM AMBULATORY - MEDICINE [facility] [place] [facility] December 16, 2023 08:30 AM AMBULATORY - MEDICINE [facility] [place] [facility] Dec 28, 2023 11:00 AM AMBULATORY - MEDICINE [facility] [place] [facility] Dec 29, 2023 10:00 AM AMBULATORY - MEDICINE [facility] [place] [facility] Dec 29, 2023 11:00 AM AMBULATORY - MEDICINE [facility] [place] [facility] Jan 06, 2024 02:30 PM AMBULATORY - MEDICINE [facility] [place] [facility] Jan 06, 2024 03:45 PM AMBULATORY - MEDICINE [facility] [place] [facility] Jan 14, 2024 12:45 PM AMBULATORY - MEDICINE [facility] [place] [facility] Jan 18, 2024 08:00 AM AMBULATORY - MEDICINE [facility] [place] [facility] Jan 19, 2024 08:30 AM AMBULATORY - PSYCHIATRY [facility] Social History: Smoking Status (Most current) and [...] 04, 2021 02:56 PM VA-TOBACCO NEVER USED [facility] Encounter Notes: All associated encounter notes This section contains the clinical notes associated to the Encounter. Date/Time Encounter Note(s) Provider Source Oct 25, 2023 11:25 AM TELEPHONE ENCOUNTE R NOTE: LOCAL TITLE: TELEPHONE NOTE/SPECIALTY CLINIC STANDARD TITLE: TELEPHONE ENCOUNTER NOTE DATE OF NOTE: OCT 25, 2023@11:25 ENTRY DATE: OCT 25, 2023@11:25:37 AUTHOR: ROCIO ROBERTS COSIGNER: URGENCY: STATUS: COMPLETED Called and spoke with pt to reminded them that they have a FTF appt with the Pain clinic on 10/26/2023 at 1000. Location was confirmed. /monisha/ ROCIO ROBERTS Signed: 10/25/2023 11:25 [facility]ERTS [facility]
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
--- OUTSIDE RECORDS SUMMARY | 2024-07-31 10:37 | XMS_ITS ---
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 Date/Time Encounter Type Encounter Description Reason Provider Source Oct 14, 2023 09:30 AM PSYTX W PT 45 MINUTES [facility] - IND ICD-10-CM F41.9 Anxiety disorder, unspecified DORIS GORMAN [facility] Encounter Template Text not used by [place] Assessments - Encounter Diagnoses This section includes the primary and secondary diagnoses documented for the Encounter. Date/Time Primary/Secondary Diagnosis Diagnosis Name Provider Source Mar 19, 2024 12:20 PM PRIMARY Anxiety disorder, unspecified DORIS GORMAN [place] [facility] [place] [facility] Plan of Treatment: Future Appointments (+ 6 months) and Future Tests (+/- 45 days) The Plan of Treatment section includes future care activities for the patient from all [place] [facility]. This section includes future appointments and future orders which are active, pending or scheduled. Future Appointments This section includes appointments that were scheduled to occur 6 months from the date of the Encounter, up to a maximum of 20 appointments. The data comes from all [place] treatment facilities. Appointment Date/Time Appointment Type Appointme nt Facility Name Oct 18, 2023 09:30 AM AMBULATORY - PSYCHIATRY [place] [facility] [place] [facility] Oct 19, 2023 08:30 AM AMBULATORY - MEDICINE [facility] [place] [facility] Oct 20, 2023 08:30 AM AMBULATORY - PSYCHIATRY [facility] [place] [facility] Oct 21, 2023 09:30 AM AMBULATORY - PSYCHIATRY [facility] [place] [facility] Oct 26, 2023 10:00 AM AMBULATORY - MEDICINE [facility] [place] [facility] Oct 26, 2023 12:30 PM AMBULATORY - MEDICINE [facility] [place] [facility] Nov 03, 2023 11:30 AM AMBULATORY - MEDICINE [facility] [place] [facility] Nov 17, 2023 08:30 AM AMBULATORY - PSYCHIATRY [facility] [place] [facility] Nov 19, 2023 12:30 PM AMBULATORY - MEDICINE [facility] [place] [facility] December 02, 2023 03:00 PM AMBULATORY - MEDICINE [place] [facility] [place] [facility] December 06, 2023 09:30 AM AMBULATORY - MEDICINE [facility] [place] [facility] December 09, 2023 01:30 PM AMBULATORY - MEDICINE [facility] [place] [facility] December 09, 2023 03:00 PM AMBULATORY - MEDICINE [facility] [place] [facility] December 14, 2023 10:30 AM AMBULATORY - MEDICINE [facility] [place] [facility] December 14, 2023 01:00 PM AMBULATORY - MEDICINE [facility] [place] [facility] December 16, 2023 08:30 AM AMBULATORY - MEDICINE [place] [facility] [place] [facility] Dec 28, 2023 11:00 AM AMBULATORY - MEDICINE [place] [facility] [place] [facility] Dec 29, 2023 10:00 AM AMBULATORY - MEDICINE [facility] [place] [facility] Dec 29, 2023 11:00 AM AMBULATORY - MEDICINE [facility] [place] [facility] Jan 06, 2024 02:30 PM AMBULATORY - MEDICINE [place] [facility] [place] [facility] Social History: Smoking Status (Most current) and Tobacco Use (All prior to encounter date) This section includes the most current, and the historical, smoking and tobacco- related health factors from the [place] facility where the Encounter took place. Current Smoking Status This section includes the most current smoking, or tobacco-related health factor, from the [place] facility where the Encounter took place. Date/Time Current Smoking Status Comment Nick kowalski Sep 04, 2021 02:56 PM VA-TOBACCO NEVER USED [place] [facility] Encounter Notes: All associated encounter notes This section contains the clinical notes associated to the Encounter. Date/Time Encounter Note(s) Provider Source Oct 14, 2023 10:55 AM MENTAL HEALTH CONS ULT: LOCAL TITLE: CONSULT REPORT/CRANIAL ELECTROTHERAPY STIMULATION STANDARD TITLE: MENTAL HEALTH CONSULT DATE OF NOTE: OCT 14, 2023@10:55 ENTRY DATE: OCT 14, 2023@10:56:33 AUTHOR: ROSHAN GORMAN EXP COSIGNER: URGENCY: STATUS: COMPLETED F: Session 1 of Alpha Stim trial D: [place] referred for Alpha-Stim trial to help with anxiety, insomnia and neck and shoulder pain symptom management. LENGTH OF TRIAL 1: 20 minutes Length of session: 40 minutes Reviewed possible negative reactions: moderate headache, [...] heavy equipment during treatment *Discussed safe activities Ch[place]ua can perform during treatment such as taking a walk, gardening, engaging in conversations, watching TV/movies (careful to avoid things that are too stimulating/upsetting) *Reviewed action to take if headache is present -> to continue treatment until the headache has resolved for at least 2 minutes *Reviewed mechanism of action (per Alpha-Stim pipe roller insert/website): Alpha-stim is a device that uses [...] benefit for headache/secondary pain relief. A: Initiated Chocorua's 1st trial session of Alpha-Stim treatment at electrical current: 1 microamperes then slowly increased by 0.5 microampere increments until we reached electrical current of 2 microamperes. reported feeling dizzy, so current was brought back down to 1.5 microamperes. Throughout this session, experienced dizziness at 2 microamperes. Negative reactions: dizziness Positive reactions: calmer PLAN/Recommendation: Continue to 2nd trial of Alpha-stim. /monisha/ ROSHAN GORMAN [facility] SHRIMP TRAWLER CAPTAIN Signed: 10/14/2023 10:58 [facility]MAN [facility]
--- OUTSIDE RECORDS SUMMARY | 2024-07-31 10:37 | XMS_ITS | Encounter Summary ---
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 Date/Time Encounter Type Encounter Description Reason Provider Source Oct 18, 2023 09:30 AM PSYTX W PT 30 MINUTES [facility] - IND ICD-10-CM F41.9 Anxiety disorder, unspecified DORIS GORMAN [facility] Encounter Template Text not used by [place] Assessments - Encounter Diagnoses This section includes the primary and secondary diagnoses documented for the Encounter. Date/Time Primary/Secondary Diagnosis Diagnosis Name Provider Source Mar 19, 2024 08:28 AM PRIMARY Anxiety disorder, unspecified DORIS GORMAN [place] [facility] [place] [facility] Plan of Treatment: Future Appointments (+ 6 months) and Future Tests (+/- 45 days) The Plan of Treatment section includes future care activities for the patient [facility] [place] [facility] This section includes future appointments and future orders which are active, pending or scheduled. Future Appointments This section includes appointments that were scheduled to occur 6 months from the date of the Encounter, up to a maximum of 20 appointments. The data comes from all [place] treatment facilities. Appointment Date/Time Appointment Type Appointme nt Facility Name Oct 19, 2023 08:30 AM AMBULATORY - MEDICINE [place] [facility] [place] [facility] Oct 20, 2023 08:30 AM AMBULATORY - [place]IATRY [place] [facility] [place] [facility] Oct 21, 2023 09:30 AM AMBULATORY - [place]ATRY [place] [facility] [place] [facility] Oct 26, 2023 10:00 AM AMBULATORY - [place]ICINE [place] [facility] [place] [facility] Oct 26, 2023 12:30 PM AMBULATORY - MEDICINE [place] [facility] [place] [facility] Nov 03, 2023 11:30 AM AMBULATORY - [place]ICINE [place] [facility] [place] [facility] Nov 17, 2023 08:30 AM AMBULATORY - PS[place]CHIATRY [place] [facility] [place] [facility] Nov 19, 2023 12:30 PM AMBULATORY - [place]ICINE [place] [facility] [place] [facility] December 02, 2023 03:00 PM AMBULATORY - [place]ICINE [place] [facility] [place] [facility] December 06, 2023 09:30 AM AMBULATORY - [place]ICINE [place] [facility] [place] [facility] December 09, 2023 01:30 PM AMBULATORY - MEDICINE [place] [facility] [place] [facility] December 09, 2023 03:00 PM AMBULATORY - MEDICINE [place] [facility] [place] [facility] December 14, 2023 10:30 AM AMBULATORY - MEDICINE [place] [facility] [place] [facility] December 14, 2023 01:00 PM AMBULATORY - MEDICINE [place] [facility] [place] [facility] December 16, 2023 08:30 AM AMBULATORY - MEDICINE [place] [facility] [place] [facility] Dec 28, 2023 11:00 AM AMBULATORY - MEDICINE [place] [facility] [place] [facility] Dec 29, 2023 10:00 AM AMBULATORY - MEDICINE [place] [facility] [place] [facility] Dec 29, 2023 11:00 AM AMBULATORY - MEDICINE [place] [facility] [place] [facility] Jan 06, 2024 02:30 PM AMBULATORY [place] MEDICINE [place] [facility] [place] [facility] Jan 06, 2024 03:45 PM AMBULATORY - MEDICINE [place] [facility] [place] [facility] Social History: Smoking Status (Most current) and Tobacco Use (All prior to encounter date) This section includes the most current, and the historical, smoking and tobacco- related health factors from the [place] facility where the Encounter took place. Current Smoking Status This section includes the most current smoking, or tobacco-related health factor, from the [place] facility where the Encounter took place. Date/Time Current Smoking Status Comment Nick kowalski Sep 04, 2021 02:56 PM VA-TOBACCO NEVER USED [place] [facility] [place] [facility] Encounter Notes: All associated encounter notes This section contains the clinical notes associated to the Encounter. Date/Time Encounter Note(s) Provider Source Oct 18, 2023 10:01 AM SOCIAL WORK NOTE: LOCAL TITLE: SOCIAL WORK NOTE STANDARD TITLE: SOCIAL WORK NOTE DATE OF NOTE: OCT 18, 2023@10:01 ENTRY DATE: OCT 18, 2023@10:01:25 AUTHOR: ROSHAN GORMAN EXP COSIGNER: URGENCY: STATUS: COMPLETED F: Session 2 of Alpha Stim trial Duration of session: 30 minutes D: referred for Alpha-Stim trial to help with anxiety, depression, insomnia symptom management. LENGTH OF TRIAL 1: 20 [...] heavy equipment during treatment *Discussed safe activities can perform during treatment such as taking a walk, gardening, engaging in conversations, watching TV/movies (careful to avoid things that are too stimulating/upsetting) *Reviewed action to take if headache is present -> to continue treatment until the headache has resolved for at least 2 minutes *Reviewed mechanism of action (per Alpha-Stim spa attendant insert/website): Alpha-stim is a device that uses [...] benefit for headache/secondary pain relief. A: Initiated 's 2nd trial session of Alpha-Stim treatment at electrical current: 1 microamperes then slowly increased by 0.5 microampere increments until we reached electrical current of 2.5 microamperes. didn't experience any symptoms of dizziness this time. [place] set up the device independently. Throughout this session, experienced some calmness. Negative reactions: none experienced today. Positive reactions: calmness. PLAN/Recommendation: Continue to 3rd trial of Alpha-stim. [place] might have some acupuncture inserts at the time of next appointment. If that's the case, he will contact to reschedule. /monisha/ ROSHAN GORMAN [facility] FELLED SEAM OPERATOR CHAINSTITCH Signed: 10/18/2023 10:05 [facility]
--- OUTSIDE RECORDS SUMMARY | 2024-07-31 10:37 | XMS_ITS | Encounter Summary ---
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 Date/Time Encounter Type Encounter Description Reason Pro vider Source Sep 24, 2023 02:00 PM Outpatient Encounter CI TREATMENT IHE Encounter Template Text not used by [place] Plan of Treatment: Future Appointments (+ 6 months) and Future Tests (+/- 45 days) The Plan of Treatment section includes future care activities for the patient from all [place] [facility]. This section includes future appointments and future orders which are active, pending or scheduled. Future Appointments This section includes appointments that were scheduled to occur 6 months from the date of the Encounter, up to a maximum of 20 appointments. The data comes from all [place] treatment facilities. Appointment Date/Time Appointment Type Appointme nt Facility Name Sep 27, 2023 12:45 PM AMBULATORY [place]ICINE [place] [facility] [place] [facility] Oct 14, 2023 09:30 AM AMBULATORY - PSYCHIATRY [place] [facility] [place] [facility] Oct 18, 2023 09:30 AM AMBULATORY - PS[facility]CHIATRY [place] [facility] [place] [facility] Oct 19, 2023 08:30 AM AMBULATORY - MEDICINE [place] [facility] [place] [facility] Oct 20, 2023 08:30 AM AMBULATORY - PSYCHIATRY [place] [facility] [place] [facility] Oct 21, 2023 09:30 AM AMBULATORY - PSYCHIATRY [place] [facility] [place] [facility] Oct 26, 2023 10:00 AM AMBULATORY - MEDICINE [place] [facility] [place] [facility] Oct 26, 2023 12:30 PM AMBULATORY - MEDICINE [place] [facility] [place] [facility] Nov 03, 2023 11:30 AM AMBULATORY - MEDICINE [place] [facility] [place] [facility] Nov 17, 2023 08:30 AM AMBULATORY - PSYCHIATRY [place] [facility] [place] [facility] Nov 19, 2023 12:30 PM AMBULATORY - MEDICINE [place] [facility] [place] [facility] December 02, 2023 03:00 PM AMBULATORY - MEDICINE [place] [facility] [place] [facility] December 06, 2023 09:30 AM AMBULATORY - MEDICINE [place] [facility] [place] [facility] December 09, 2023 01:30 PM AMBULATORY - MEDICINE [place] [facility] [place] [facility] December 09, 2023 03:00 PM AMBULATORY - MEDICINE [place] [facility] [place] [facility] December 14, 2023 10:30 AM AMBULATORY - MEDICINE [facility] [place] [facility] December 14, 2023 01:00 PM AMBULATORY - MEDICINE [place] [facility] [place] [facility] December 16, 2023 08:30 AM AMBULATORY - MEDICINE [facility] [place] [facility] Dec 28, 2023 11:00 AM AMBULATORY - MEDICINE [facility] [place] [facility] Dec 29, 2023 10:00 AM AMBULATORY - MEDICINE [facility] Social History: Smoking Status (Most current) and Tobacco Use (All prior to encounter date) This section includes the most current, and the historical, smoking and tobacco- related health factors from the [place] facility where the Encounter took place. Current Smoking Status This section includes the most current smoking, or tobacco-related health factor, from the [place] facility where the Encounter took place. Date/Time Current Smoking Status Comment Facil [facility] Sep 04, 2021 02:56 PM VA-TOBACCO NEVER USED [facility] Encounter Notes: All associated encounter notes This section contains the clinical notes associated to the Encounter. Date/Time Encounter Note(s) Provider Source Sep 24, 2023 02:00 PM TELEPHONE ENCOUNTE R NOTE: LOCAL TITLE: TELEPHONE NOTE/SPECIALTY CLINIC STANDARD TITLE: TELEPHONE ENCOUNTER NOTE DATE OF NOTE: SEP 24, 2023@14:00 ENTRY DATE: SEP 24, 2023@14:01:03 AUTHOR: JONATHAN MARI EXP COSIGNER: URGENCY: STATUS: COMPLETED Called and spoke with pt to reminded them that they have a FTF appt with the acupuncture clinic on 09/27/2023 at 1245. Location was confirmed /monisha/ JONATHAN MARI [employer] COMMUNITY SUPPORT ASSOCIATE Signed: 09/24/2023 14:01 JONATHAN MARI [facility]
--- OUTSIDE RECORDS SUMMARY | 2024-07-31 10:37 | XMS_ITS ---
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 Date/Time Encounter Type Encounter Description Reason Provider Source Sep 27, 2023 12:45 PM ACUPUNCT W/O STIMUL 15 MIN CI TREATMENT ICD-10-CM M54.2 Cervicalgia JAMES WONG IHE Encounter Template Text not used by [place] Assessments - Encounter Diagnoses This section includes the primary and secondary diagnoses documented for the Encounter. Date/Time Primary/Secondary Diagnosis Diagnosis Name Provider Source Mar 19, 2024 07:03 AM PRIMARY Cervicalgia JAMES WONG [place] [facility] [place] [facility] Plan of Treatment: Future Appointments (+ 6 months) and Future Tests (+/- 45 days) The Plan of Treatment section includes future care activities for the patient from all [place] [facility]. This section includes future appointments and future orders which are active, pending or scheduled. Future Appointments This section includes appointments that were scheduled to occur 6 months from the date of the Encounter, up to a maximum of 20 appointments. The data comes from all [place] treatment facilities. Appointment Date/Time Appointment Type Appointme nt Facility Name Oct 14, 2023 09:30 AM AMBULATORY - PSYCHIATRY [place] [facility] [place] [facility] Oct 18, 2023 09:30 AM AMBULATORY - PSYCHIATRY [place] [facility] [place] [facility] Oct 19, 2023 08:30 AM AMBULATORY - MEDICINE [place] [facility] [place] [facility] Oct 20, 2023 08:30 AM AMBULATORY - PSYCHIATRY [place] [facility] [place] [facility] Oct 21, 2023 09:30 AM AMBULATORY - PSYCHIATRY [place] [facility] [place] [facility] Oct 26, 2023 10:00 AM AMBULATORY - MEDICINE [place] [facility] [place] [facility] Oct 26, 2023 12:30 PM AMBULATORY - MEDICINE [place] [facility] [place] [facility] Nov 03, 2023 11:30 AM AMBULATORY - MEDICINE [place] [facility] [place] [facility] Nov 17, 2023 08:30 AM AMBULATORY - PSYCHIATRY [place] [facility] [place] [facility] Nov 19, 2023 12:30 PM AMBULATORY - MEDICINE [place] [facility] [place] [facility] December 02, 2023 03:00 PM AMBULATORY - MEDICINE [place] [facility] [place] [facility] December 06, 2023 09:30 AM AMBULATORY - MEDICINE [place] [facility] [place] [facility] December 09, 2023 01:30 PM AMBULATORY - MEDICINE [place] [facility] [place] [facility] December 09, 2023 03:00 PM AMBULATORY - MEDICINE [place] [facility] [place] [facility] December 14, 2023 10:30 AM AMBULATORY - MEDICINE [place] [facility] [place] [facility] December 14, 2023 01:00 PM AMBULATORY - MEDICINE [place] [facility] [place] [facility] December 16, 2023 08:30 AM AMBULATORY - MEDICINE [place] [facility] [place] [facility] Dec 28, 2023 11:00 AM AMBULATORY - MEDICINE [place] [facility] [place] [facility] Dec 29, 2023 10:00 AM AMBULATORY - MEDICINE [place] [facility] [place] [facility] Dec 29, 2023 11:00 AM AMBULATORY - MEDICINE [place] [facility] [place] [facility] Social History: Smoking Status (Most current) and Tobacco Use (All prior to encounter date) This section includes the most current, and the historical, smoking and tobacco- related health factors from the [place] facility where the Encounter took place. Current Smoking Status This section includes the most current smoking, or tobacco-related health factor, from the [place] facility where the Encounter took place. Date/Time Current Smoking Status Comment Nick kowalski Sep 04, 2021 02:56 PM VA-TOBACCO NEVER USED [place] [facility] Encounter Notes: All associated encounter notes This section contains the clinical notes associated to the Encounter. Date/Time Encounter Note(s) Provider Source Sep 27, 2023 03:41 PM PRIMARY CARE NOTE: LOCAL TITLE: [place] ACUPUNCTURE NOTE STANDARD TITLE: PRIMARY CARE NOTE DATE OF NOTE: SEP 27, 2023@15:41 ENTRY DATE: SEP 27, 2023@15:41:51 AUTHOR: SCOT WONG EXP COSIGNER: URGENCY: STATUS: COMPLETED Initial visit Oketo Acupuncture/Oketo Acupressure was the only treatment given. Patient was evaluated and agreed to receive Oketo Acupuncture (BFA). Patient was evaluated and agreed to receive Oketo Acupuncture Protocol (BFA)/Oketo Acupressure (BAA) for the following pain condition(s): Comment: Left side neck pain Pre BFA/BAA Numeric Pain Rating Scale of site with highest pain: number from 0-10: 5 The patient was asked the following questions: During the past 24 hours, how much has your pain interfered with your usual activity? number from 0-10: 7 During the past 24 hours, how much has your pain interfered with your usual sleep? number from 0-10: 10 During the past 24 hours, how much has the pain affected your usual mood? number from 0-10: 8 During the past 24 hours, how much has pain contributed to your stress? number from 0-10: 9 Oral Informed Consent obtained for BFA/BAA Procedure: Ear was prepped with alcohol Needle type: Semi-permanent ASP needles The following points were placed: All 10 points in both ears Complications: Patient tolerated well, without any complications. Post treatment Numeric Pain Rating Scale: number from 0-10: 4 Standard [id number] time for application of BFA/BAA protocol is 15 minutes. No electrical stimulation was used. The patient was provided with the following post BFA instructions: -Continue normal activities and avoid over exertion for the initial 6-12 hours after a treatment. Avoid alcohol for 12 hours after treatment. -You may bathe or shower with the needles in place, but be careful not to pull the needles when cleaning or drying the ear. -If you experience new or continued redness, swelling or pain, remove the needles or return to clinic for evaluation and/or needle removal. -You may experience drowsiness, lightheadedness, or euphoria during the treatment or within 30 minutes of treatment. -Do not have an MRI scan with the needles in place (If you need to have an MRI, please remove needles prior to scan). -Continue to take all prescription medication according to your provider's instructions. -After three days, remove all needles. You may have small stud needles (ASP needles) covered by an adhesive bandage, or needles that are attached to the adhesive bandage (press tack needles). ASP needles may be removed by gripping them with your fingernails or tweezers. Rock the needles back and forth to remove. Press tack needles may be removed by peeling off the tape that holds the needle in place. -[place] must be placed in a sharps container or household container that meets sharps disposal guidelines. Household container must be: a. made of a puncture-resistant material; b. able to close with a tight-fitting, puncture resistant lid, without sharps being able to come out; c. stand upright and be stable during use; d. leak-resistant; e. properly labeled (sharps - biohazard); and f. disposed of according to community guidelines, if available. -Please keep all regularly scheduled follow-up visits. Return sooner should your condition worsen. /monisha/ SCOT WONG LA.C, DIPL.AC UPHOLSTERY INSTRUCTOR Signed: 09/27/2023 15:43 SC[facility] W[facility]
--- OUTSIDE RECORDS SUMMARY | 2024-07-31 10:37 | XMS_ITS ---
Author Name [facility] [place] Organization [facility] [place] Address [address] [place] [id number] Care Team Providers Care Balance And Hairspring Assembler Name Role Phone NADERMELBA Primary Care Provider [...] PART B Feb 24, 2020 PART B [id number] STAR DOUGHERTY JR PATIENT MEDICARE (WNR) MEDICARE (M) PART A November 24, 2019 PART A [id number] STAR DOUGHERTY JR PATIENT OFFICE OF [facility] NO-FAULT INSURANCE NO FAULT May 12, 2022 NO FAULT [id number] STAR DOUGHERTY JR PATIENT FOR LIFE TFL* Feb 24, 2020 [id number] STAR DOUGHERTY JR PATIENT [facility] (WNR) TRICA RE(WN R) Jul 26, 2017 (WNR) [id number] ROSALES DOUGHERTY PATIENT Selected Encounter This section includes the information on record at [place] for the Encounter. Date/Time Encounter Type Encounter Description Reason Provider Source Oct 20, 2023 08:30 AM OFFICE O/P EST MOD 30 MIN MENTAL HEALTH CLINIC - IND ICD-10-CM F41.9 Anxiety disorder, unspecified TODD MOY E Encounter Template Text not used by [place] Assessments - Encounter Diagnoses This section includes the primary and secondary diagnoses documented for the Encounter. Date/Time Primary/Secondary Diagnosis Diagnosis Name Provider Source Mar 20, 2024 11:30 AM PRIMARY Anxiety disorder, unspecified TODD MOY [place] [facility] [place] [facility] Plan of Treatment: Future Appointments (+ 6 months) and Future Tests (+/- 45 days) The Plan of Treatment section includes future care activities for the patient [facility] [place] [facility] This section includes future appointments and future orders which are active, pending or scheduled. Future Appointments This section includes appointments that were scheduled to occur 6 months from the date of the Encounter, up to a maximum of 20 appointments. The data comes from all [place] treatment facilities. Appointment Date/Time Appointment Type Appointme nt Facility Name Oct 21, 2023 09:30 AM AMBULATORY - PSYCHIATRY [facility] [place] [facility] Oct 26, 2023 10:00 AM AMBULATORY - MEDICINE [place] [facility] [place] [facility] Oct 26, 2023 12:30 PM AMBULATORY - MEDICINE [place] [facility] [place] [facility] Nov 03, 2023 11:30 AM AMBULATORY - MEDICINE [place] [facility] [place] [facility] Nov 17, 2023 08:30 AM AMBULATORY - PSYCHIATRY [facility] [place] [facility] Nov 19, 2023 12:30 PM AMBULATORY - MEDICINE [place] [facility] [place] [facility] December 02, 2023 03:00 PM AMBULATORY - MEDICINE [place] [facility] [place] [facility] December 06, 2023 09:30 AM AMBULATORY - MEDICINE [place] [facility] [place] [facility] December 09, 2023 01:30 PM AMBULATORY - MEDICINE [place] [facility] [place] [facility] December 09, 2023 03:00 PM AMBULATORY - MEDICINE [place] [facility] [place] [facility] December 14, 2023 10:30 AM AMBULATORY - MEDICINE [place] [facility] [place] [facility] December 14, 2023 01:00 PM AMBULATORY - MEDICINE [place] [facility] [place] [facility] December 16, 2023 08:30 AM AMBULATORY - MEDICINE [facility] [place] [facility] Dec 28, 2023 11:00 AM AMBULATORY - MEDICINE [place] [facility] [place] [facility] Dec 29, 2023 10:00 AM AMBULATORY - MEDICINE [place] [facility] [place] [facility] Dec 29, 2023 11:00 AM AMBULATORY - MEDICINE [place] [facility] [place] [facility] Jan 06, 2024 02:30 PM AMBULATORY - MEDICINE [place] [facility] [place] [facility] Jan 06, 2024 03:45 PM AMBULATORY - MEDICINE [place] [facility] [place] [facility] Jan 14, 2024 12:45 PM AMBULATORY - MEDICINE [place] [facility] [place] [facility] Jan 18, 2024 08:00 AM AMBULATORY - MEDICINE [place] [facility] [place] [facility] Social History: Smoking Status (Most current) and [...] PM VA-TOBACCO NEVER USED [place] [facility] [place] [facility] Encounter Notes: All associated encounter notes This section contains the clinical notes associated to the Encounter. Date/Time Encounter Note(s) Provider Source Oct 20, 2023 08:30 AM PRIMARY CARE NURSE PRACTITIONER OUTPATIENT NOTE: LOCAL TITLE: NURSE PRACTITIONER OUTPATIENT NOTE STANDARD TITLE: PRIMARY CARE NURSE PRACTITIONER OUTPATIENT NOTE DATE OF NOTE: OCT 20, 2023@08:30 ENTRY DATE: OCT 20, 2023@08:30:35 AUTHOR: YANCY MOY COSIGNER: URGENCY: STATUS: COMPLETED OUTPATIENT MENTAL HEALTH CLINIC: FOLLOW-UP HPI: STAR DOUGHERTY JR, a 67 y/o male Jet previously diagnosed with Generalized Anxiety Disorder with Panic Attacks presents for [facility] Follow-Up appointment. Last seen by This Provider on 09/22/23 With regards to anxiety since last visit reports I'll say it's been okay. Not great. Overwhelmed with too much to do, including concern over his 's health. Taken off transplant list in July and just got back on it. This would be his 's second liver transplant. has been up and down and seeing her struggle is difficult for . Denies significant improvement in symptoms since buspirone was increased ( No, not really ). Remember to take both doses. Sleep is only 2 hours at a time, interrupted by enlarged prostate. Jet explicitly and convincingly denied SI, intent or plan and denied thoughts of harming others. SUBSTANCE USE: Tobacco: denied Alcohol: denied Narcotics: denied Cannabis: denied PREVIOUS PSYCHIATRIC HISTORY: Medication trials: lorazepam 0.5 mg PRN busPIRone 15 mg BID FLUoxetine 40 mg daily hydrOXYzine 25 mg (cannot remember taking this medication) sertraline (diarrhea) FAMILY MENTAL HEALTH AND SUBSTANCE USE HISTORY: Brother and two sisters who drink ETOH excessively, possibly also father MSE: Appearance: consistent w/ stated age, appropriate grooming and hygiene Behavior: polite and cooperative Motor: ambulates slowly, [...] memory grossly intact to conversational testing Mood: still anxious no change from previous baseline Affect: mood congruent MEDICAL HISTORY: Active Problem Exposure to potentially hazardous s 09/23/2023 ALISHA DAVISON Cervical radiculopathy M54.12 08/12/2023 MARIBEL SHAFER Tinnitus H93.19, Onset 05/31/2023NovemberBERTO Pain R52., Onset 05/31/2023NovemberBERTO Coronary arteriosclerosis I25.10, O 06/16/2023NovemberBERTO Anxiety F41.9, Onset 09/04/2021NovemberBERTO Benign prostatic hyperplasia N40.1, 06/16/2023 MELBA DOE ALLERGIES: Data on this list may not be complete. Please check [facility]. FACILITY ALLERGY/ADR -------- No Remote Allergy/ADR Data available for this patient [place] [facility] [place] [facility] No Known Allergies MEDICATIONS: reviewed and updated in CPRS Active Outpatient Medications (including Supplies): Active Outpatient Medications Status 1) BUSPIRONE HCL 10MG TAB TAKE ONE TABLET BY MOUTH TWICE ACTIVE DAILY ANXIETY 2) CYCLOBENZAPRINE HCL 5MG TAB TAKE ONE TABLET BY MOUTH ACTIVE TWICE DAILY NEEDED FOR MUSCLE SPASM 3) FLUOXETINE HCL 20MG CAP TAKE THREE CAPSULES BY MOUTH ACTIVE ONCE DAILY FOR DEPRESSION AND ANXIETY 4) LORAZEPAM 0.5MG TAB TAKE ONE TABLET BY MOUTH ONCE ACTIVE DAILY NEEDED FOR ANXIETY/PANIC Active Non-VA Medications Status 1) Non-VA ATORVASTATIN CALCIUM 40MG TAB 20MG BY MOUTH ACTIVE ONCE DAILY 5 Total Medications LABS AND STUDIES: REVIEWED IN CPRS SAFETY ASSESSMENT: No acute safety concerns. Convincingly denies any thoughts, intents, or plans to harm self or others. Chronic risk is elevated by status and mental illness but is currently mitigated by participation in treatment and demonstration of help-seeking behaviors. IMPRESSION: Jet presents as polite, cooperative and treatment motivated Reports adherence to current medications with significant therapeutic benefit and denies side effects. Reports desire to continue with current pharmacotherapy regimen. Jet reminded of potential side effects of benzodiazepines, including ataxia, confusion, drowsiness, respiratory depression (especially if combined with other MEDIA EXECUTIVE depressants such as alcohol or opioid medications), increased fall risk and the risk of developing a substance use disorder. Jet agreed to refrain from use of alcohol or opioid medications concurrent with use of benzodiazepine. PDMP and chart review do suggest any history of misuse or diversion. Also informed of potential for sedation, for impaired coordination, for falling, for impaired cognition and for possible increased risk of dementia Also reminded of side effects of gabapentin including ataxia, confusion, drowsiness, respiratory depression (especially if combined with other MEDIA EXECUTIVE depressants) Also reminded that Cyclobenzaprine is a MEDIA EXECUTIVE depressant and that he should exercise caution in combining it with other MEDIA EXECUTIVE depressants No acute safety concerns Diagnosis: Generalized Anxiety Disorder with Panic Attacks F41.1 PLAN: 1) CONTINUE lorazepam 0.5 mg PO PRN 2) CONTINUE FLUoxetine 60 MG PO DAILY 3) CONTINUE BUSPIRONE FROM 10 MG DAILY TO 10 MG BID 4) INITIATE GABAPENTIN, TITRATE UP TO 300 MG PO TID Labs: None today Follow-Up: 11/17/23 Discussed risks and benefits of proposed medication treatments including FDA approved indications and off-label uses, as well as common and severe side effects. comprehended all information discussed, had opportunity to ask questions which were answered to their satisfaction, and voluntarily and without duress agreed to trial as documented. CONTACT AND CRISIS INFO: informed that This Provider can be contacted at , [phone] or via Secure Messaging. 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 [...] MOY Psychiatric Mental Health Nurse Practitioner Signed: 10/26/2023 14:53 YANCY MOY [place] [facility]
--- OUTSIDE RECORDS SUMMARY | 2024-07-31 10:37 | XMS_ITS | Encounter Summary ---
Author Name [facility] [place] Address [address] [place] [id number] Care Team Providers Care Automobile Rental Clerk Name Role Phone NADERMELBA Primary Care Provider [...] PART B Feb 24, 2020 PART B [id number] STAR DOUGHERTY JR PATIENT MEDICARE (WNR) MEDICARE (M) PART A November 24, 2019 PART A [id number] STAR DOUGHERTY JR PATIENT [facility] NO-FAULT INSURANCE NO FAULT May 12, 2022 NO FAULT [id number] STAR DOUGHERTY JR PATIENT FOR LIFE TFL* Feb 24, 2020 [id number] 14 STAR DOUGHERTY JR PATIENT [facility] (WNR) TRICA RE(WN R) Jul 26, 2017 (WNR) [id number] 14 ROSALES DOUGHERTY PATIENT Selected Encounter This section includes the information on record at [place] for the Encounter. Date/Time Encounter Type Encounter Description Reason Provider Source Sep 22, 2023 08:30 AM OFFICE O/P EST MOD 30 MIN MENTAL HEALTH CLINIC - IND ICD-10-CM F41.9 Anxiety disorder, unspecified TODD MOY [facility] Encounter Template Text not used by [place] Assessments - Encounter Diagnoses This section includes the primary and secondary diagnoses documented for the Encounter. Date/Time Primary/Secondary Diagnosis Diagnosis Name Provider Source Mar 20, 2024 10:38 AM PRIMARY Anxiety disorder, unspecified TODD MOY [place] [facility] [place] [facility] Mar 20, 2024 10:38 AM SECONDARY Contact with and exposure to other hazardous substances TODD MOY [place] [facility] [place] [facility] Plan of Treatment: Future Appointments (+ 6 months) and Future Tests (+/- 45 days) The Plan of Treatment section includes future care activities for the patient from all [place] treatmentfacilities. This section includes future appointments and future orders which are active, pending or scheduled. Future Appointments This section includes appointments that were scheduled to occur 6 months from the date of the Encounter, up to a maximum of 20 appointments. The data comes from all [place] treatment facilities. Appointment Date/Time Appointment Type Appointme nt Facility Name Sep 27, 2023 12:45 PM AMBULATORY - MEDICINE [place] [facility] [place] [facility] Oct 14, 2023 09:30 AM AMBULATORY - PSYCHIATRY [facility] [place] [facility] Oct 18, 2023 09:30 AM AMBULATORY - PSYCHIATRY [facility] [place] [facility] Oct 19, 2023 08:30 AM AMBULATORY - MEDICINE [place] [facility] [place] [facility] Oct 20, 2023 08:30 AM AMBULATORY - PSYCHIATRY [facility] [place] [facility] Oct 21, 2023 09:30 AM AMBULATORY - PSYCHIATRY [facility] [place] [facility] Oct 26, 2023 10:00 AM AMBULATORY - MEDICINE [facility] [place] [facility] Oct 26, 2023 12:30 PM AMBULATORY - MEDICINE [facility] [place] [facility] Nov 03, 2023 11:30 AM AMBULATORY - MEDICINE [place] [facility] [place] [facility] Nov 17, 2023 08:30 AM AMBULATORY - PSYCHIATRY [facility] [place] [facility] Nov 19, 2023 12:30 PM AMBULATORY - MEDICINE [facility] [place] [facility] December 02, 2023 03:00 PM AMBULATORY - MEDICINE [facility] [place] [facility] December 06, 2023 09:30 AM AMBULATORY - MEDICINE [facility] [place] [facility] December 09, 2023 01:30 PM AMBULATORY - MEDICINE [facility] [place] [facility] December 09, 2023 03:00 PM AMBULATORY - MEDICINE [facility] [place] [facility] December 14, 2023 10:30 AM AMBULATORY - MEDICINE [facility] [place] [facility] December 14, 2023 01:00 PM AMBULATORY - MEDICINE [facility] [place] [facility] December 16, 2023 08:30 AM AMBULATORY - MEDICINE [facility] [place] [facility] Dec 28, 2023 11:00 AM AMBULATORY - MEDICINE [facility] [place] [facility] Dec 29, 2023 10:00 AM AMBULATORY - MEDICINE [place] [facility] [place] [facility] Social History: Smoking Status (Most current) and Tobacco Use (All prior to encounter date) This section includes the most current, and the historical, smoking and tobacco- related health factors from the [facility] facility where the Encounter took place. Current Smoking Status This section includes the most current smoking, or tobacco-related health factor, from the [place] facility where the Encounter took place. Date/Time Current Smoking Status Comment Nick kowalski Sep 04, 2021 02:56 PM VA-TOBACCO NEVER USED [place] [facility] [place] [facility] Encounter Notes: All associated encounter notes This section contains the clinical notes associated to the Encounter. Date/Time Encounter Note(s) Provider Source Sep 22, 2023 08:46 AM PRIMARY CARE NURSE PRACTITIONER OUTPATIENT NOTE: LOCAL TITLE: NURSE PRACTITIONER OUTPATIENT NOTE STANDARD TITLE: PRIMARY CARE NURSE PRACTITIONER OUTPATIENT NOTE DATE OF NOTE: SEP 22, 2023@08:46 ENTRY DATE: SEP 22, 2023@08:46:17 AUTHOR: YANCY MOY COSIGNER: URGENCY: STATUS: COMPLETED OUTPATIENT MENTAL HEALTH CLINIC: FOLLOW-UP HPI: STAR DOUGHERTY JR, a 67 y/o male [place] previously diagnosed with Generalized Anxiety Disorder with Panic Attacks [place] for [facility] Follow-Up appointment. Last seen by This Provider on 08/31/23 tolerating increased dosage of fluoxetine but denies significant benefit adding, Maybe helping a little with anxiety but any benefit is marginal, at best. Anxiety and poor sleep remain heightened and 's ongoing medical concerns continue to exacerbate symptoms. 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 Will continue to follow-up about this. Box Elder also asked about status of pain medication that was discussed with his interdisciplinary pain team. Dr. Roth was contacted on Teams and quickly replied that she will forward the question to Dr. Shafer again. Box Elder explicitly and convincingly denied SI, intent or plan and denied thoughts of harming others. Denies auditory or visual hallucinations, paranoia or [...] who drink ETOH excessively, possibly also father Appearance: consistent w/ stated age, appropriate grooming [...] intact to conversational testing Mood: still anxious Affect: mood congruent MEDICAL HISTORY: Active Problem Cervical radiculopathy M54.12 08/12/2023 MARIBEL SHAFER Tinnitus H93.19, Onset 05/31/2023November,BERTO Johnson Pain R52., Onset 05/31/2023 MAY,BERTO Johnson Coronary arteriosclerosis I25.10, O 06/16/2023November,BERTO Johnson Anxiety F41.9, Onset 09/04/2021November,BERTO P Benign prostatic hyperplasia N40.1, 06/16/2023 FURCOLO,MELBA ALLERGIES: Data on this list may not be complete. Please check [facility]. FACILITY ALLERGY/ADR -------- No Remote Allergy/ADR Data available for this patient [facility] [place] [facility] No Known Allergies MEDICATIONS: reviewed and updated in CPRS Active Outpatient Medications (including Supplies): Active Outpatient Medications Status 1) BUSPIRONE HCL 10MG TAB TAKE ONE TABLET BY MOUTH ONCE ACTIVE (S) DAILY 2) FLUOXETINE HCL 20MG CAP TAKE THREE CAPSULES BY MOUTH ACTIVE ONCE DAILY FOR DEPRESSION AND ANXIETY 3) LORAZEPAM 0.5MG TAB TAKE ONE TABLET BY MOUTH ONCE ACTIVE DAILY NEEDED FOR ANXIETY/PANIC Active Non-VA Medications Status 1) Non-VA ATORVASTATIN CALCIUM 40MG TAB 20MG BY MOUTH ACTIVE ONCE DAILY 4 Total Medications LABS AND STUDIES: HLA B27: Negative ANTINUCLEAR [...] NEGATIVE Bilirubin, Urine (AX 4280): NEGATIVE Specific [place], (AX 4280): 1.033 H pH, Urine ([id number]): 6.0 Urobilinogen, Urine (AX 4280): <2.0 Leukocyte [...] treatment and demonstration of help-seeking behaviors. IMPRESSION: presents as polite, cooperative and treatment motivated Discussed several options for attempting to address symptoms of anxiety including initiation of gabapentin and reinitiating afternoon dose of buspirone. Ultimately agreed to reinitiate afternoon dose of buspirone. Will continue to follow-up about environmental exposures and possible health sequelae. No acute safety concerns Diagnosis: Generalized Anxiety Disorder with Panic Attacks F41.1 Meds: 1) CONTINUE lorazepam 0.5 mg PO PRN 2) CONTINUE FLUoxetine 60 MG PO DAILY 3) INCREASE BUSPIRONE FROM 10 MG DAILY TO 10 MG BID Labs: None today Follow-Up: RTC for 10/20/23 Discussed risks and benefits of proposed medication treatments including FDA approved indications and off-label uses, as well as common and severe side effects. Box Elder comprehended all information discussed, had opportunity to ask questions which were answered to their satisfaction, and voluntarily and without duress agreed to trial as documented. CONTACT AND CRISIS INFO: informed that This Provider can be contacted at , EXT [phone] or via Secure Messaging. 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 CODING: Total time today was 30 minutes, which included an in-person visit with the patient, providing counseling and education, and time spent reviewing the record, ordering meds, completing documentation, and coordinating care. 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 /caregiver believes the was exposed to the following while serving in the Armed Forces: Airborne Hazards and Open Burn Pit: Box Elder/caregiver was made aware of educational resources that includes information on the Registry Program, presumptive conditions and how to file a claim. Printed information was offered and provided if desired. /caregiver has no health or medical concerns related to their concern of environmental exposure. No questions at this time Box Elder/caregiver was informed of local points of contact. Contact information for local resources: Benefits/Claim for Disability Compensation Questions:National A [place] Healthcare Enrollment: [facility] Eligibility direct dialed at [phone] Registry: Enviromental Health Coordinator ext [phone] The following connections were provided to the Box Elder/caregiver: Veterans Benefits Administration (VBA) for Benefits/claims: Adult Remedial Education Instructor/Organization (VSO) [email or web address] Medication Reconciliation: Outpatient: Has the patient been taking medications as documented in the EMLR? YES: The patient has been taking medications as documented in the EMLR. Essential Medication List for Review used to complete this medication reconciliation. INCLUDED IN THIS LIST: Alphabetical list of active outpatient prescriptions dispensed from this [place] (local) and dispensed from another VA or [...] MOY Psychiatric Mental Health Nurse Practitioner Signed: 09/22/2023 12:58 YANCY MOY [facility]
--- OUTSIDE RECORDS SUMMARY | 2024-07-31 10:37 | XMS_ITS | Encounter Summary ---
Author Name [facility] [place] Address [address] [place] [id number] Care Team Providers Care Manufacturing Electrician Name Role Phone NADERMELBA Primary Care Provider [...] PART B Feb 24, 2020 PART B [id number] STAR DOUGHERTY JR PATIENT MEDICARE (WNR) MEDICARE (M) PART A November 24, 2019 PART A [id number] STAR DOUGHERTY JR PATIENT OFFICE OF REGIONAL HERBOLOGIST NO-FAULT INSURANCE NO FAULT May 12, 2022 NO FAULT [id number] STAR DOUGHERTY JR PATIENT FOR LIFE TFL* Feb 24, 2020 [id number] STAR DOUGHERTY JR PATIENT [facility] (WNR) TRICA RE(WN R) Jul 26, 2017 (WNR) [id number] [phone] ROSALES DOUGHERTY PATIENT Selected Encounter This section includes the information on record at [place] for the Encounter. Date/Time Encounter Type Encounter Description Reason Provider Source Oct 26, 2023 12:30 PM ACUPUNCT W/O STIMUL 15 MIN CI TREATMENT ICD-10-CM R52 Pain, unspecified JAMES WONG E Encounter Template Text not used by [place] Assessments - Encounter Diagnoses This section includes the primary and secondary diagnoses documented for the Encounter. Date/Time Primary/Secondary Diagnosis Diagnosis Name Provider Source Mar 19, 2024 07:04 AM PRIMARY Pain, unspecified JAMES WONG [place] [facility] [place] [facility] Mar 19, 2024 07:04 AM SECONDARY Cervicalgia JAMES WONG [place] [facility] [place] [facility] Plan of Treatment: Future Appointments (+ 6 months) and Future Tests (+/- 45 days) The Plan of Treatment section includes future care activities for the patient from all [place] [facility] [place] This section includes future appointments and future orders which are active, pending or scheduled. Future Appointments This section includes appointments that were scheduled to occur 6 months from the date of the Encounter, up to a maximum of 20 appointments. The data comes from all [place] treatment facilities. Appointment Date/Time Appointment Type Appointme nt Facility Name Nov 03, 2023 11:30 AM AMBULATORY - MEDICINE [place] [facility] [place] [facility] Nov 17, 2023 08:30 AM AMBULATORY - PS[place]CHIATRY [place] [facility] [place] [facility] Nov 19, 2023 12:30 PM AMBULATORY - MEDICINE [place] [facility] [place] [facility] December 02, 2023 03:00 PM AMBULATORY - MEDICINE [facility] [place] [facility] December 06, 2023 09:30 AM AMBULATORY - MEDICINE [facility] [place] [facility] December 09, 2023 01:30 PM AMBULATORY - MEDICINE [place] [facility] [place] [facility] December 09, 2023 03:00 PM AMBULATORY - MEDICINE [facility] [place] [facility] December 14, 2023 10:30 AM AMBULATORY - MEDICINE [facility] [place] [facility] December 14, 2023 01:00 PM AMBULATORY - MEDICINE [facility] [place] [facility] December 16, 2023 08:30 AM AMBULATORY - MEDICINE [place] [facility] [place] [facility] Dec 28, 2023 11:00 AM AMBULATORY - MEDICINE [facility] [place] [facility] Dec 29, 2023 10:00 AM AMBULATORY - MEDICINE [facility] [place] [facility] Dec 29, 2023 11:00 AM AMBULATORY - MEDICINE [facility] [place] [facility] Jan 06, 2024 02:30 PM AMBULATORY - MEDICINE [facility] [place] [facility] Jan 06, 2024 03:45 PM AMBULATORY - MEDICINE [facility] [place] [facility] Jan 14, 2024 12:45 PM AMBULATORY - MEDICINE [facility] [place] [facility] Jan 18, 2024 08:00 AM AMBULATORY - MEDICINE [facility] [place] [facility] Jan 19, 2024 08:30 AM AMBULATORY - PSYCHIATRY [facility] [place] [facility] Jan 25, 2024 09:30 AM AMBULATORY - MEDICINE [facility] [place] [facility] Feb 01, 2024 09:30 AM AMBULATORY - MEDICINE [place] [facility] [place] [facility] Social History: Smoking Status (Most current) and Tobacco Use (All prior to encounter date) This section includes the most current, and the historical, smoking and tobacco- related health factors from the [facility] facility where the Encounter took place. Current Smoking Status This section includes the most current smoking, or tobacco-related health factor, from the [place] facility where the Encounter took place. Date/Time Current Smoking Status Comment Facil [facility] Sep 04, 2021 02:56 PM VA-TOBACCO NEVER USED [facility] [place] [facility] Encounter Notes: All associated encounter notes This section contains the clinical notes associated to the Encounter. Date/Time Encounter Note(s) Provider Source Oct 26, 2023 12:41 PM PRIMARY CARE NOTE: LOCAL T[facility]: [facility] ACUPUNCTURE NOTE STANDARD TITLE: PRIMARY CARE NOTE DATE OF NOTE: OCT 26, 2023@12:41 ENTRY DATE: OCT 26, 2023@12:41:33 AUTHOR: SCOT WONG COSIGNER: URGENCY: STATUS: COMPLETED Follow up visit Artas Acupuncture/Artas Acupressure was the only treatment given. Patient was evaluated and agreed to receive Artas Acupuncture (BFA). Patient was evaluated and agreed to receive Artas Acupuncture Protocol (BFA)/Artas Acupressure (BAA) for the following pain condition(s): Comment: Neck pain Pre BFA/BAA Numeric Pain Rating Scale of site with highest pain: number from 0-10: 6 The patient was asked the following questions: During the past 24 hours, how much has your pain interfered with your usual activity? number from 0-10: 5 During the past 24 hours, how much has your pain interfered with your usual sleep? number from 0-10: 5 During the past 24 hours, how much has the pain affected your usual mood? number from 0-10: 7 During the past 24 hours, how much has pain contributed to your stress? number from 0-10: 7 Oral Informed Consent obtained for BFA/BAA Procedure: Ear was prepped with alcohol Needle type: Semi-permanent ASP needles The following points were placed: All 10 points in both ears Complications: Patient tolerated well, without any complications. Post treatment Numeric Pain Rating Scale: number from 0-10: 4 Standard [id number] time for application of BFA/BAA protocol is 15 minutes. No electrical stimulation was used. Comment: Boody declined ear plasters. /monisha/ SCOT WONG LA.C, DIPL.AC MOBILE THERAPIST Signed: 10/26/2023 12:43 SCOT WONG [facility]
--- OUTSIDE RECORDS SUMMARY | 2024-07-31 10:38 | XMS_ITS | Encounter Summary ---
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 Date/Time Encounter Type Encounter Description Reason Pro vider Source Nov 12, 2023 10:32 AM Outpatient Encounter PAIN CLINIC [facility] Encounter Template Text not used by [place] Plan of Treatment: Future Appointments (+ 6 months) and Future Tests (+/- 45 days) The Plan of Treatment section includes future care activities for the patient from [facility] [place] [facility] This section includes future appointments and future orders which are active, pending or scheduled. Future Appointments This section includes appointments that were scheduled to occur 6 months from the date of the Encounter, up to a maximum of 20 appointments. The data comes from all [place] treatment facilities. Appointment Date/Time Appointment Type Appointme nt Facility Name Nov 17, 2023 08:30 AM AMBULATORY - PSYCHIATRY [facility] [place] [facility] Nov 19, 2023 12:30 PM AMBULATORY - MEDICINE [facility] [place] [facility] December 02, 2023 03:00 PM AMBULATORY - MEDICINE [facility] [place] [facility] December 06, 2023 09:30 AM AMBULATORY - MEDICINE [facility] [place] [facility] December 09, 2023 01:30 PM AMBULATORY - MEDICINE [facility] [place] [facility] December 09, 2023 03:00 PM AMBULATORY - MEDICINE [facility] [place] [facility] December 14, 2023 10:30 AM AMBULATORY - MEDICINE [facility] [place] [facility] December 14, 2023 01:00 PM AMBULATORY - MEDICINE [facility] [place] [facility] December 16, 2023 08:30 AM AMBULATORY - MEDICINE [facility] [place] [facility] Dec 28, 2023 11:00 AM AMBULATORY - MEDICINE [facility] [place] [facility] Dec 29, 2023 10:00 AM AMBULATORY - MEDICINE [facility] [place] [facility] Dec 29, 2023 11:00 AM AMBULATORY - MEDICINE [facility] [place] [facility] Jan 06, 2024 02:30 PM AMBULATORY - MEDICINE [facility] [place] [facility] Jan 06, 2024 03:45 PM AMBULATORY - MEDICINE [facility] [place] [facility] Jan 14, 2024 12:45 PM AMBULATORY - MEDICINE [facility] [place] [facility] Jan 18, 2024 08:00 AM [facility] Jan 19, 2024 08:30 AM [facility] Jan 25, 2024 09:30 AM [facility] Feb 01, 2024 09:30 AM [facility] Feb 02, 2024 11:00 AM AMBULATORY - PSYCHIATRY [facility] Active, Pending, and Scheduled Orders This section includes a listing of several types of active, pending, and scheduled orders, including clinic medications orders, diagnostic test orders, procedure orders and consult orders; where the start date of the order is 45 days before the date of the Encounter or 45 days after the date of theEncounter. The data comes from all [place] treatment facilities. Test Date/Time Test Type Test Details Facility Name December 23, 2023 12:00 AM Laboratory - Chemi stry Order LIPID PANEL FASTING BLOOD (SST-SERUM) [facility] Social History: Smoking Status (Most current) and Tobacco Use (All prior to encounter date) This section includes the most current, and the historical, smoking and tobacco- related health factors from the [place] facility where the Encounter took place. Current Smoking Status This section includes the most current smoking, or tobacco-related health factor, from the [place] facility where the Encounter took place. Date/Time Current Smoking Status Comment Nick kowalski Sep 04, 2021 02:56 PM VA-TOBACCO NEVER USED [facility] Encounter Notes: All associated encounter notes This section contains the clinical notes associated to the Encounter. Date/Time Encounter Note(s) Provider Source Nov 12, 2023 10:32 AM TELEPHONE ENCOUNTE R NOTE: LOCAL TITLE: TELEPHONE NOTE/SPECIALTY CLINIC STANDARD TITLE: TELEPHONE ENCOUNTER NOTE DATE OF NOTE: NOV 12, 2023@10:32 ENTRY DATE: NOV 12, 2023@10:34:46 AUTHOR: JONATHAN MARI EXP COSIGNER: URGENCY: STATUS: COMPLETED TELEPHONE NOTE/SPECIALTY CLINIC Has ADDENDA Call attempt was made to remind vet that they have a FTF appt with the Pain clinic on 11/15/2023 at 930AM. No answer, lvm. Location was confirmed. /monisha/ JONATHAN MARI ADVANCED TAPE STRINGER Signed: 11/12/2023 10:35 11/15/2023 ADDENDUM STATUS: COMPLETED Mr. Victoria cancelled his follow-up this morning via Vet text. [facility] will outreach to offer next available IPT follow-up with this writer technical publications. /monisha/ EUSEBIA LAWTON DPT PHYSICAL THERAPIST Signed: 11/15/2023 09:46 [facility]ATHAN [facility]
--- OUTSIDE RECORDS SUMMARY | 2024-07-31 10:38 | XMS_ITS | Encounter Summary ---
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 Date/Time Encounter Type Encounter Description Reason Provider Source Mar 22, 2024 11:00 AM PSYTX W PT 30 MINUTES [facility] - IND ICD-10-CM F41.9 Anxiety disorder, unspecified ANABELL REVELES [facility] Encounter Template Text not used by [place] Assessments - Encounter Diagnoses This section includes the primary and secondary diagnoses documented for the Encounter. Date/Time Primary/Secondary Diagnosis Diagnosis Name Provider Source Apr 11, 2024 03:59 PM PRIMARY Anxiety disorder, unspecified ANABELL REVELES [place] [facility] [place] [facility] Plan of Treatment: Future Appointments (+ 6 months) and Future Tests (+/- 45 days) The Plan of Treatment section includes future care activities for the patient from all [place] [facility]. This section includes future appointments and future orders which are active, pending or scheduled. Future Appointments This section includes appointments that were scheduled to occur 6 months from the date of the Encounter, up to a maximum of 20 appointments. The data comes from all [place] treatment facilities. Appointment Date/Time Appointment Type Appointme nt Facility Name Mar 28, 2024 09:00 AM AMBULATORY - PSYCHIATRY [place] [facility] [place] [facility] Mar 29, 2024 09:00 AM AMBULATORY - MEDICINE [place] [facility] [place] [facility] Mar 30, 2024 09:00 AM AMBULATORY - MEDICINE [place] [facility] [place] [facility] Apr 12, 2024 11:00 AM AMBULATORY - MEDICINE [place] [facility] [place] [facility] Apr 14, 2024 08:30 AM AMBULATORY - MEDICINE [place] [facility] [place] [facility] Apr 18, 2024 08:00 AM AMBULATORY - MEDICINE [place] [facility] [place] [facility] Apr 19, 2024 01:00 PM AMBULATORY - MEDICINE [place] [facility] [place] [facility] Apr 24, 2024 11:00 AM AMBULATORY - PSYCHIATRY [place] [facility] [place] [facility] Apr 24, 2024 01:00 PM AMBULATORY - MEDICINE [place] [facility] [place] [facility] Apr 26, 2024 01:00 PM AMBULATORY - MEDICINE [place] [facility] [place] [facility] May 01, 2024 02:45 PM AMBULATORY - MEDICINE [place] [facility] [place] [facility] May 02, 2024 02:00 PM AMBULATORY - MEDICINE [place] [facility] [place] [facility] May 02, 2024 02:30 PM AMBULATORY - MEDICINE [facility] [place] [facility] May 03, 2024 03:00 PM AMBULATORY - MEDICINE [facility] [place] [facility] May 10, 2024 03:45 PM AMBULATORY - MEDICINE [facility] [place] [facility] May 17, 2024 01:45 PM AMBULATORY - MEDICINE [place] C [facility] [place] [facility] May 22, 2024 10:30 AM AMBULATORY - PSYCHIATRY [place] [facility] [place] [facility] May 26, 2024 11:00 AM AMBULATORY - MEDICINE [place] C [facility] [place] [facility] May 31, 2024 01:00 PM AMBULATORY - MEDICINE [place] [facility] [place] [facility] Jun 06, 2024 01:00 PM AMBULATORY [facility] Active, Pending, and Scheduled Orders This section includes a listing of several types of active, pending, and scheduled orders, including clinic medications orders, diagnostic test orders, procedure orders and consult orders; where the start date of the order is 45 days before the date of the Encounter or 45 days after the date of theEncounter. The data comes from all [place] treatment facilities. Test Date/Time Test Type Test Details Facility Name Mar 29, 2024 09:37 AM Consult Order COMMUNITY CARE-COLONOSCOPY SURVEILLANCE Cons Staff Development Coordinator Rn's Choice [facility] Lab Results: +/- 30 days of the encounter This section includes the Chemistry and Hematology Lab Results on record with [place] for the patient. Radiology Reports and Pathology Reports are provided separately, in subsequent sections. Lab Results This section contains the Chemistry/Hematology Results that were resulted 30 days before or 30 daysafter the date of the Encounter. Date/Time Source Result Type Result - Unit Interpretation Reference Range Comment Apr 05, 2024 09:14 AM [facility] LIPID PANEL FASTING Specimen Type: SERUM No comment entered. Ordering Provider: MELBA DOE Report Released Date/Time: Mar 29, 2024 09:37 AM Reporting [facility] [address] [address] Performing Lab: [facility] [address] [facility] [address] CHOLESTEROL 167 mg/dL TRIGLYCERIDE 231 mg/dL H 0-150 LDL calculated 80 mg/dL 0-129 CHOL/HDL 4.1 HDL CHOLESTEROL 41 mg/dL 40-60 Apr 05, 2024 09:14 AM [facility] VITAMIN B12 Specimen Type: SERUM No comment entered. Ordering Provider: MELBA DOE Report Released Date/Time: Mar 29, 2024 09:37 AM Reporting Lab: [facility] [address] [facility] [address] Performing Lab: [address] [address] VITAMIN B12 500 pg/mL 200-900 Apr 05, 2024 09:14 AM [facility] TSH Specimen Type: SERUM No comment entered. Ordering Provider: MELBA DOE Report Released Date/Time: Mar 29, 2024 09:37 AM Reporting Lab: [facility] [address] [facility] [address] Performing Lab: [facility] [address] [facility] [address] TSH 1.38 u[IU]/mL 0.35-5.00 Apr 05, 2024 09:14 AM [facility] BASIC METABOLIC PANEL (fasting) Specimen Type: SERUM No comment entered. Ordering Provider: MELBA DOE Report Released Date/Time: Mar 29, 2024 09:37 AM Reporting Lab: [facility] [address] [facility] [address] Performing Lab: [address] [address] UREA NITROGEN 22 mg/dL 7-25 GLUCOSE 128 mg/dL H 65-100 SODIUM 140 mmol/L 135-145 POTASSIUM 4.2 mmol/L 3.5-5.0 CHLORIDE 103 mmol/L 100-110 CO2 26 meq/L 20-30 CREATININE, Serum 1.02 mg/dL 0.50-1.40 eGFR(CKD-EPI 2020) 80 mL/min >60 Apr 05, 2024 09:14 AM [facility] CBC Specimen Type: BLOOD No comment entered. Ordering Provider: MELBA DOE Report Released Date/Time: Mar 29, 2024 09:37 AM Reporting Lab: [facility] [address] [facility] [address] Performing Lab: [facility] [address] [facility] [address] WBC 6.54 10*3/uL 4.50-11.00 RBC 4.83 10*6/uL 4.23-5.66 HGB 15.2 g/dL 12.8-17 HCT 44.4 39.2-50.4 MCV 91.9 fL 82-99 MCHC 34.2 g/dL 30.8-35.1 PLT 220 10*3/uL 140-360 RDW-CV 12.3 12.0-16.0 MCH 31.5 pg 26.2-32.6 Vital Signs: All taken on the encounter date This section contains inpatient and outpatient Vital Signs collected on the date of the Encounter. Date/Time Temperature Pulse Blood Pressure Respiratory Rate SP02 Pain Height Weight Body Mass Index Source Mar 22, 2024 12:13 PM 97.6 106 163/52 22 98 [facility] Social History: Smoking Status (Most current) and Tobacco Use (All prior to encounter date) This section includes the most current, and the historical, smoking and tobacco- related health factors from the [place] facility where the Encounter took place. Current Smoking Status This section includes the most current smoking, or tobacco-related health factor, from the [place] facility where the Encounter took place. Date/Time Current Smoking Status Comment Nick kowalski Sep 04, 2021 02:56 PM VA-TOBACCO NEVER USED [facility] Encounter Notes: All associated encounter notes This section contains the clinical notes associated to the Encounter. Date/Time Encounter Note(s) Provider Source Mar 22, 2024 01:14 PM PSYCHOLOGY NOTE: LOCAL TITLE: PSYCHOLOGY NOTE STANDARD TITLE: PSYCHOLOGY NOTE DATE OF NOTE: MAR 22, 2024@13:14 ENTRY DATE: MAR 22, 2024@13:14:46 AUTHOR: ANABELL REVELES COSIGNER: URGENCY: STATUS: COMPLETED Date of session: March 22, 2024 Duration of session: 30 minutes Diagnosis: Anxiety Disorder, unspecified Presenting Problem ( report): Decorah presented to [facility] as warm hand off from PACT nurse. He was visibly having a panic attack and yelling in the waiting room. Course of Session: This consumer loan underwriter took back and he kept yelling in between breathes that no one was helping him. This consumer loan underwriter attempted to have him utilize grounding techniques and when he could not focus on that then this consumer loan underwriter attempted to practice deep breathing with him. He kept getting up frustrated and saying, What are you doing for me? Nothing . This consumer loan underwriter clarified that she could not speak to his physical health as she is a psychologist not a primary care doctor. He shared further frustration and explained that he would just have to go to the ER if nothing was going to be done. This consumer loan underwriter offered to walk him over to admissions nurse for vitals and he agreed. While walking there his panic symptoms worsened and he appeared unsteady on his feet. This consumer loan underwriter asked if he could continue to walk and he started screaming at her saying that it was a stupid question for a doctor to ask . then chose to sit on top of trash can until this consumer loan underwriter asked if he could make it to the nearest chair. Emi Kaufman, [facility] nurse, assisted with vitals and helped him ground by showing him that his vitals were fine and improving as he slowed down his breath. He was provided a mask and walked through further breathing techniques to help. The panic attack surpassed and then he continued to berate [facility]/admissions staff and chose to leave. Risk Assessment: denied SI/HI Date of next planned contact: Walk-in Clinic as needed /monisha/ Anabell Reveles Psy.D. Psychologist Signed: 03/22/2024 13:23 Receipt Acknowledged By: 03/22/2024 14:08 /monisha/ EMI KAUFMAN Registered Nurse 03/24/2024 12:18 /es/ MELBA DOE D.O. PHYSICIAN 03/22/2024 15:19 /monisha/ YANCY MOY Psychiatric Mental Health Nurse Practitioner 03/22/2024 13:55 /es/ KIMBERLY BARRAZA, BRITTANY REGISTERED ANABELL COLEMAN CN[facility]L [facility]
--- OUTSIDE RECORDS SUMMARY | 2024-07-31 10:38 | XMS_ITS | Encounter Summary ---
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 Date/Time Encounter Type Encounter Description Reason Pro vider Source IHE Encounter Template Text not used by [place]
--- OUTSIDE RECORDS SUMMARY | 2024-07-31 10:38 | XMS_ITS | Encounter Summary ---
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 Date/Time Encounter Type Encounter Description Reason Pro vider Source Nov 02, 2023 10:05 AM Outpatient Encounter PAIN CLINIC IHE Encounter Template Text not used by [place] Plan of Treatment: Future Appointments (+ 6 months) and Future Tests (+/- 45 days) The Plan of Treatment section includes future care activities for the [facility] [place] [facility] This section includes future appointments and future orders which are active, pending or scheduled. Future Appointments This section includes appointments that were scheduled to occur 6 months from the date of the Encounter, up to a maximum of 20 appointments. The data comes from all [place] treatment facilities. Appointment Date/Time Appointment Type Appointme nt Facility Name Nov 03, 2023 11:30 AM [facility]ULATORY [facility] Nov 17, 2023 08:30 AM AMBULATORY - PSYCHIATRY [facility] Nov 19, 2023 12:30 PM AMBULATORY [facility] MEDICINE [facility] December 02, 2023 03:00 PM AMBULATORY [facility] MEDICINE [facility] December 06, 2023 09:30 AM AMBULATORY [facility] MEDICINE [facility] December 09, 2023 01:30 PM AMBULATORY - MEDICINE [facility] December 09, 2023 03:00 PM AMBULATORY [facility] MEDICINE [facility] December 14, 2023 10:30 AM AMBULATORY [facility] MEDICINE [facility] December 14, 2023 01:00 PM AMBULATORY - MEDICINE [facility] December 16, 2023 08:30 AM AMBULATORY [facility] MEDICINE [facility] Dec 28, 2023 11:00 AM AMBULATORY - MEDICINE [facility] Dec 29, 2023 10:00 AM AMBULATORY [facility]ICINE [facility] Dec 29, 2023 11:00 AM AMBULATORY - MEDICINE [facility] Jan 06, 2024 02:30 PM AMBULATORY - MEDICINE [facility] Jan 06, 2024 03:45 PM AMBULATORY - MEDICINE [facility] Jan 14, 2024 12:45 PM AMBULATORY - MEDICINE [facility] Jan 18, 2024 08:00 AM AMBULATORY - MEDICINE [place] [facility] Jan 19, 2024 08:30 AM AMBULATORY - PSYCHIATRY [place] [facility] Jan 25, 2024 09:30 AM AMBULATORY - MEDICINE [facility] Feb 01, 2024 09:30 AM AMBULATORY - MEDICINE [facility] Social History: Smoking Status (Most current) and Tobacco Use (All prior to encounter date) This section includes the most current, and the historical, smoking and tobacco- related health factors from the [place] facility where the Encounter took place. Current Smoking Status This section includes the most current smoking, or tobacco-related health factor, from the [place] facility where the Encounter took place. Date/Time Current Smoking Status Comment Facil [facility] Sep 04, 2021 02:56 PM VA-TOBACCO NEVER USED [facility] Encounter Notes: All associated encounter notes This section contains the clinical notes associated to the Encounter. Date/Time Encounter Note(s) Provider Source Nov 02, 2023 10:05 AM TELEPHONE ENCOUNTE R NOTE: LOCAL TITLE: TELEPHONE NOTE/SPECIALTY CLINIC STANDARD TITLE: TELEPHONE ENCOUNTER NOTE DATE OF NOTE: NOV 02, 2023@10:05 ENTRY DATE: NOV 02, 2023@10:05:32 AUTHOR: JONATHAN MARI EXP COSIGNER: URGENCY: STATUS: COMPLETED Called and spoke with pt to remind them that they have a FTF appt with the Pain clinic on 11/03/2023 at 1130. Location was confirmed /monisha/ JONATHAN MARI ADVANCED B2B ACCOUNT EXECUTIVE Signed: 11/02/2023 10:06 [facility]
--- OUTSIDE RECORDS SUMMARY | 2024-07-31 10:38 | XMS_ITS ---
Author Name [facility] [place] [facility] [place] Address [address] [place] [id number] Care Team Providers Care Marketing Coordinator Name Role Phone NADERMELBA Primary Care Provider [...] PART B Feb 24, 2020 PART B [id number] [phone] STAR DOUGHERTY JR PATIENT MEDICARE (WNR) MEDICARE (M) PART A November 24, 2019 PART A [id number] STAR DOUGHERTY JR PATIENT OFFICE OF REGIONAL [place] BLOWER NO-FAULT INSURANCE NO FAULT May 12, 2022 NO FAULT [id number] STAR DOUGHERTY JR PATIENT FOR LIFE TFL* Feb 24, 2020 [id number] STAR DOUGHERTY JR PATIENT [facility] (WNR) TRICA RE(WN R) Jul 26, 2017 (WNR) [id number] 14 ROSALES DOUGHERTY PATIENT Selected Encounter This section includes the information on record at [place] for the Encounter. Date/Time Encounter Type Encounter Description Reason Provider Source Nov 19, 2023 12:30 PM ACUPUNCT W/O STIMUL 15 MIN CI TREATMENT ICD-10-CM M54.2 Cervicalgia [place]AMES Uriarte E Encounter Template Text not used by [place] Assessments - Encounter Diagnoses This section includes the primary and secondary diagnoses documented for the Encounter. Date/Time Primary/Secondary Diagnosis Diagnosis Name Provider Source Mar 19, 2024 07:04 AM PRIMARY Cervicalgia JAMES WONG [place] [facility] [place] [facility] Plan of Treatment: Future Appointments (+ 6 months) and Future Tests (+/- 45 days) The Plan of Treatment section includes future care activities for the patient from all [place] [facility]. This section includes future appointments and future orders which are active, pending or scheduled. Future Appointments This section includes appointments that were scheduled to occur 6 months from the date of the Encounter, up to a maximum of 20 appointments. The data comes from all [place] treatment facilities. Appointment Date/Time Appointment Type Appointme nt Facility Name December 02, 2023 03:00 PM AMBULATORY - MEDICINE [facility] [place] [facility] December 06, 2023 09:30 AM AMBULATORY - MEDICINE [place] [facility] [place] [facility] December 09, 2023 01:30 PM AMBULATORY - MEDICINE [place] [facility] [place] [facility] December 09, 2023 03:00 PM AMBULATORY - MEDICINE [facility] [place] [facility] December 14, 2023 10:30 AM AMBULATORY - MEDICINE [place] [facility] [place] [facility] December 14, 2023 01:00 PM AMBULATORY - MEDICINE [facility] [place] [facility] December 16, 2023 08:30 AM AMBULATORY - MEDICINE [facility] [place] [facility] Dec 28, 2023 11:00 AM AMBULATORY - MEDICINE [facility] [place] [facility] Dec 29, 2023 10:00 AM AMBULATORY - MEDICINE [facility] [place] [facility] Dec 29, 2023 11:00 AM AMBULATORY - MEDICINE [facility] [place] [facility] Jan 06, 2024 02:30 PM AMBULATORY - MEDICINE [facility] [place] [facility] Jan 06, 2024 03:45 PM AMBULATORY - MEDICINE [facility] [place] [facility] Jan 14, 2024 12:45 PM AMBULATORY - MEDICINE [place] [facility] [place] [facility] Jan 18, 2024 08:00 AM AMBULATORY - MEDICINE [facility] [place] [facility] Jan 19, 2024 08:30 AM AMBULATORY - PSYCHIATRY [place] [facility] [place] [facility] Jan 25, 2024 09:30 AM [facility]ULAT[facility] Feb 01, 2024 09:30 AM AMBULATORY - MEDICINE [place] [facility] [place] [facility] Feb 02, 2024 11:00 AM AMBULATORY [facility] Feb 02, 2024 12:30 PM [facility]ULAT[facility] Feb 10, 2024 11:15 AM [facility] Active, Pending, and Scheduled Orders This section includes a listing of several types of active, pending, and scheduled orders, including clinic medications orders, diagnostic test orders, procedure orders and consult orders; where the start date of the order is 45 days before the date of the Encounter or 45 days after the date of theEncounter. The data comes from all [place] treatment facilities. Test Date/Time Test Type Test Details Facility Name December 23, 2023 12:00 AM Laboratory - Chemi stry Order LIPID PANEL FASTING BLOOD (SST-SERUM) SP [facility] Social History: Smoking Status (Most [...] 04, 2021 02:56 PM [facility]CO [facility] Encounter Notes: All associated encounter notes This section contains the clinical notes associated to the Encounter. Date/Time Encounter Note(s) Provider Source Nov 19, 2023 01:26 PM PRIMARY CARE NOTE: LOCAL TITLE: [facility] ACUPUNCTURE NOTE STANDARD TITLE: PRIMARY CARE NOTE DATE OF NOTE: NOV 19, 2023@13:26 ENTRY DATE: NOV 19, 2023@13:26:56 AUTHOR: SCOT WONG COSIGNER: URGENCY: STATUS: COMPLETED Follow up visit [place] [facility]/[place] Acupressure was the only treatment given. Patient was evaluated and agreed to receive [place] Acupuncture (BFA). Patient was evaluated and agreed to receive [place] Acupuncture Protocol (BFA)/[place] Acupressure (BAA) for the following pain condition(s): Comment: Neck pain Pre BFA/BAA Numeric Pain Rating Scale of site with highest pain: number from 0-10: 6 The patient was asked the following questions: During the past 24 hours, how much has your pain interfered with your usual activity? number from 0-10: 3 During the past 24 hours, how much has your pain interfered with your usual sleep? number from 0-10: 4 During the past 24 hours, how much has the pain affected your usual mood? number from 0-10: 7 During the past 24 hours, how much has pain contributed to your stress? number from 0-10: 8 Oral Informed Consent obtained for BFA/BAA Procedure: Ear was prepped with alcohol Needle type: Semi-permanent ASP needles The following points were placed: All 10 points in both ears Complications: Patient tolerated well, without any complications. Post treatment Numeric Pain Rating Scale: number from 0-10: 5 Standard [id number] time for application of BFA/BAA protocol is 15 minutes. No electrical stimulation was used. /monisha/ SCOT WONG LA.C DIPL.AC HEALTH PROMOTION MANAGER Signed: 11/19/2023 13:28 SCOT WONG [place] [facility]
--- OUTSIDE RECORDS SUMMARY | 2024-07-31 10:38 | XMS_ITS ---
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 Date/Time Encounter Type Encounter Description Reason Pro vider Source Mar 22, 2024 08:35 AM Outpatient Encounter ADMIN PAT ACTIVTIES (MASNONCT) IHE Encounter Template Text not used by [place] Plan of Treatment: Future Appointments (+ 6 months) and Future Tests (+/- 45 days) The Plan of Treatment section includes future care activities for the patient from all [place] [facility] This section includes future appointments and future [...] 28, 2024 09:00 AM AMBULATORY - [place] [place] [facility] Mar 29, 2024 09:00 AM AMBULATORY - MEDICINE [facility] [place] [facility] Mar 30, 2024 09:00 AM AMBULATORY [facility] MEDICINE [facility] [place] [facility] Apr 12, 2024 11:00 AM AMBULATORY - MEDICINE [facility] [facility] Apr 14, 2024 08:30 AM AMBULATORY - MEDICINE [facility] [place] [facility] Apr 18, 2024 08:00 AM AMBULATORY - MEDICINE [facility] [place] [facility] Apr 19, 2024 01:00 PM AMBULATORY - MEDICINE [facility] [place] [facility] Apr 24, 2024 11:00 AM AMBULATORY - PS[facility]CHIATRY [facility] [place] [facility] Apr 24, 2024 01:00 PM AMBULATORY - MEDICINE [facility] [place] [facility] Apr 26, 2024 01:00 PM AMBULATORY - MEDICINE [facility] [place] [facility] May 01, 2024 02:45 PM AMBULATORY - MEDICINE [facility] [place] [facility] May 02, 2024 02:00 PM AMBULATORY - MEDICINE [facility] [place] [facility] May 02, 2024 02:30 PM AMBULATORY - MEDICINE [facility] [place] [facility] May 03, 2024 03:00 PM AMBULATORY - MEDICINE [facility] [place] [facility] May 10, 2024 03:45 PM AMBULATORY - MEDICINE [place] [facility] [place] [facility] May 17, 2024 01:45 PM AMBULATORY [place]ICINE [place] [facility] [facility] May 22, 2024 10:30 AM AMBULATORY [place]RY [place] [facility] [facility] May 26, 2024 11:00 AM AMBULATORY - MEDICINE [place] [facility] [place] [facility] May 31, 2024 01:00 PM AMBULATORY - MEDICINE [facility] Jun 06, 2024 01:00 PM AMBULATORY - MEDICINE [facility] Active, Pending, and Scheduled Orders This section includes a listing of several types of active, pending, and scheduled orders, including clinic medications orders, diagnostic test orders, procedure orders and consult orders; where the start date of the order is 45 days before the date of the Encounter or 45 days after the date of theEncounter. The data comes from all [place] treatment facilities. Test Date/Time Test Type Test Details Facility Name Mar 29, 2024 09:37 AM Consult Order COMMUNITY CARE-COLONOSCOPY SURVEILLANCE Cons Edge Trimmer's Choice [facility] Lab Results: +/- 30 days of the [...] Range Comment Apr 05, 2024 09:14 AM [facility] LIPID PANEL FASTING Specimen Type: SERUM No comment entered. Ordering Provider: MELBA DOE Report Released Date/Time: Mar 29, 2024 09:37 AM Reporting Lab: [facility] [address] [address] Performing Lab: [address] [address] CHOLESTEROL 167 mg/dL TRIGLYCERIDE 231 mg/dL H 0-150 LDL calculated 80 mg/dL 0-129 CHOL/HDL 4.1 HDL CHOLESTEROL 41 mg/dL 40-60 Apr 05, 2024 09:14 AM [facility] VITAMIN B12 Specimen Type: SERUM No comment entered. Ordering Provider: MELBA DOE Report Released Date/Time: Mar 29, 2024 09:37 AM Reporting Lab: [facility] [address] [address] Performing Lab: [address] [address] VITAMIN B12 500 pg/mL 200-900 Apr 05, 2024 09:14 AM [facility] BASIC METABOLIC PANEL (fasting) Specimen Type: SERUM No comment entered. Ordering Provider: MELBA DOE Report Released Date/Time: Mar 29, 2024 09:37 AM Reporting Lab: [address] [address] Performing Lab: [address] [address] UREA NITROGEN 22 mg/dL 7-25 GLUCOSE 128 mg/dL H 65-100 SODIUM 140 mmol/L 135-145 POTASSIUM 4.2 mmol/L 3.5-5.0 CHLORIDE 103 mmol/L 100-110 CO2 26 meq/L 20-30 CREATININE, Serum 1.02 mg/dL 0.50-1.40 eGFR(CKD-EPI 2020) 80 mL/min >60 Apr 05, 2024 09:14 AM [facility] TSH Specimen Type: SERUM No comment entered. Ordering Provider: MELBA DOE Report Released Date/Time: Mar 29, 2024 09:37 AM Reporting Lab: [address] [address] Performing Lab: [address] [address] TSH 1.38 u[IU]/mL 0.35-5.00 Apr 05, 2024 09:14 AM [facility] CBC Specimen Type: BLOOD No comment entered. Ordering Provider: MELBA DOE Report Released Date/Time: Mar 29, 2024 09:37 AM Reporting Lab: [address] [address] Performing Lab: [facility] [address] [address] WBC 6.54 10*3/uL 4.50-11.00 RBC 4.83 10*6/uL [...] 12:13 PM 97.6 106 163/52 22 98 [facility] Social History: Smoking Status (Most current) and [...] 04, 2021 02:56 PM VA-TOBACCO NEVER USED [facility] Encounter Notes: All associated encounter notes This section contains the clinical notes associated to the Encounter. Date/Time Encounter Note(s) Provider Source Mar 22, 2024 08:35 AM ADMINISTRATIVE NOT E: LOCAL TITLE: CCC: SCHEDULING ADMINISTRATION STANDARD TITLE: ADMINISTRATIVE NOTE DATE OF NOTE: MAR 22, 2024@08:35:27 ENTRY DATE: MAR 22, 2024@08:35:27 AUTHOR: LUDIVINA PIERRE EXP COSIGNER: URGENCY: STATUS: COMPLETED CCC: SCHEDULING ADMINISTRATION Has ADDENDA Patient Demographics Patient Name: STAR DOUGHERTY Patient Primary Phone: [phone] Patient Primary [address] [address] [place] [id number] Patient : 1955 Patient Age: 68 Call Back Number: Caller/Recipient Relation to Patient: Self Administrative Administrative Note Reason: Outside Care Performed Administrative Note Comments: Pt is requesting call back to schedule appt with PCP to f/u on [facility] visit on 03/21/24. Pt can be reached at . Thank you. IMPORTANT: This note was created by [facility] staff. Please do not alert the staff member by adding them as a signer for future communications. Alerts are not monitored by this user. /monisha/ LUDIVINA HOGAN 1 [facility] Signed: 03/22/2024 08:35 Receipt Acknowledged By: 03/22/2024 15:24 /monisha/ SEBAS BLACKMAN LPN License Practical Nurse 03/22/2024 10:40 /monisha/ KIMBERLY BARRAZA RN REGISTERED NURSE 03/22/2024 ADDENDUM STATUS: COMPLETED Spoke with who advises that he was evaluated in the ED on 03/21/24 to rule out Stroke/heart attack. He was discharged with direction to follow up with PCP. While on the phone with , he is in the lobby here at [facility]. He states he feels dry mouth back pain and shoulder pain. /monisha/ KIMBERLY BARRAZA RN REGISTERED NURSE Signed: 03/22/2024 12:15 03/22/2024 ADDENDUM STATUS: COMPLETED NOTE SIGNED IN ERROR. While speaking to on the telephone, he advised that he was in the lobby speaking with GAURAVA requested ED follow up appointment. At that time, Kia Mckenzie got on the line and advised that she was scheduling for follow up. Pat then came directly to this RN and stated that the was adamant about having ED follow up today and requesting COVID test. [facility] had provided with a boxed home COVID test. This television writer then took back to exam room to discuss in detail. [place] appeared highly agitated, waving his arms around, using a loud voice and name calling things such as you are worthless . then threw the boxed COVID test at this writers head. He denies any symptoms of COVID, no fever, no cough, no sore throat, no fatigue, no N/V/D. He stated that last night his mouth felt dry to the point that he couldn't speak and felt that he could not breathe. He also had pain across the back of his shoulder blades. he called 911 and was taken via ambulance to [facility]. He reports that in the ED they did EKG, CXR and labs and released him to follow up with PCP and that is why he is here today because he needs a PCP follow up. Attempted to explain the typical procedure where ED rules out anythng life threatening or need for admission and then discharges with direction to follow up with PCP. I advised that I had requested records from [facility] so that we could see what was done in the ED and he was scheduled for PCP follow up on 03/29/24. He continued to ask what am I supposed to do, just go home until my throat closes up and call 911 again . He was advised that he could use [place] [facility] to go to or ED as we did not have a sick call provider available today. He then threw his boxed COVID test at my head, it hit my head and then it hit the wall. He stated that he felt he was having a panic attack. At that time. This television writer requested assistance from Laura Hoffman NP who came into the exam room. Laura attempted to explain process to , she offered for him to be put into her schedule today at 3:30, he stated forget it, I'll just go home until my throat closes up and I call 911 again , Laura clarified that we do not want that to happen and that we would like to help him. She offered for him to be seen by MH if he felt he was having a panic attack as they are well equipped to provide help with that. He was agreeable to that. This television writer walked him to the [facility], he was asked to complete a form to be seen by MH. He took the clipboard and threw it 2 seats away from him and said forget it . This television writer sat next to him and said let me help you fill this out, we can do it together . Filled in known information then asked if he was on any medications to assist with panic attacks he stated you are worthless, you have the information right in front of you, don't you know anything . Form completed to best of this television writer's ability. Multiple people in the lobby asked this television writer are you ok? do you need help? . Then MH provider arrived and took back into the MH area. Disruptive Behavior report was completed by this television writer. /monisha/ KIMBERLY BARRAZA RN REGISTERED NURSE Signed: 03/22/2024 12:13 LUDIVINA PIERRE [place] [facility]
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
--- OUTSIDE RECORDS SUMMARY | 2024-07-31 10:39 | XMS_ITS ---
Author Name [facility] [place] Organization [facility] [place] Address [address] [place] [id number] Care Team Providers Care Electro Mechanic Name Role Phone NADERNALLELY Primary Care Provider Unavailabl e Insurance Providers: [...] PART B Feb 24, 2020 PART B [id number] STAR DOUGHERTY JR PATIENT MEDICARE (WNR) MEDICARE (M) PART A November 24, 2019 PART A [id number] STAR DOUGHERTY JR PATIENT OFFICE OF [facility] NO-FAULT INSURANCE NO FAULT May 12, 2022 NO FAULT [id number] [phone] STAR DOUGHERTY JR PATIENT FOR LIFE TFL* Feb 24, 2020 [id number] STAR DOUGHERTY JR PATIENT [facility] (WNR) TRICA RE(WN R) Jul 26, 2017 (WNR) [id number] [phone] ROSALES DOUGHERTY PATIENT Selected Encounter This section includes the information on record at [place] for the Encounter. Date/Time Encounter Type Encounter Description Reason Provider Source Mar 28, 2024 09:00 AM OFFICE O/P EST MOD 30 MIN [facility]ENTAL [facility] CLINIC - IND ICD-10-CM F41.1 Generalized anxiety disorder TODD MOY [facility] Encounter Template Text not used by [place] Assessments - Encounter Diagnoses This section includes the primary and secondary diagnoses documented for the Encounter. Date/Time Primary/Secondary Diagnosis Diagnosis Name Provider Source Apr 11, 2024 03:58 PM PRIMARY Generalized anxiety disorder TODD MOY [place] [facility] [place] [facility] Apr 11, 2024 03:58 PM SECONDARY Primary insomnia TODD MOY [facility] [place] [facility] Plan of Treatment: Future Appointments (+ 6 months) and Future Tests (+/- 45 days) The Plan of Treatment section includes future care activities for the patient from all [place] [facility]. This section includes future appointments and future orders which are active, pending or scheduled. Future Appointments This section includes appointments that were scheduled to occur 6 months from the date of the Encounter, up to a maximum of 20 appointments. The data comes from all [place] treatment facilities. Appointment Date/Time Appointment Type Appointme nt Facility Name Mar 29, 2024 09:00 AM AMBULATORY - MEDICINE [facility] [place] [facility] Mar 30, 2024 09:00 AM AMBULATORY - MEDICINE [facility] [place] [facility] Apr 12, 2024 11:00 AM AMBULATORY - MEDICINE [facility] [place] [facility] Apr 14, 2024 08:30 AM AMBULATORY - MEDICINE [facility] [place] [facility] Apr 18, 2024 08:00 AM AMBULATORY - MEDICINE [facility] [place] [facility] Apr 19, 2024 01:00 PM AMBULATORY - MEDICINE [facility] [place] [facility] Apr 24, 2024 11:00 AM AMBULATORY - PSYCHIATRY [facility] [place] [facility] Apr 24, 2024 01:00 PM AMBULATORY - MEDICINE [facility] [place] [facility] Apr 26, 2024 01:00 PM AMBULATORY - MEDICINE [facility] [place] [facility] May 01, 2024 02:45 PM AMBULATORY - MEDICINE [facility] [place] [facility] May 02, 2024 02:00 PM AMBULATORY - MEDICINE [facility] [place] [facility] May 02, 2024 02:30 PM AMBULATORY - MEDICINE [facility] [place] [facility] May 03, 2024 03:00 PM AMBULATORY - MEDICINE [facility] [place] [facility] May 10, 2024 03:45 PM AMBULATORY - MEDICINE [facility] [place] [facility] May 17, 2024 01:45 PM AMBULATORY - MEDICINE [facility] [place] [facility] May 22, 2024 10:30 AM AMBULATORY - PSYCHIATRY [facility] [place] [facility] May 26, 2024 11:00 AM AMBULATORY - MEDICINE [facility] [place] [facility] May 31, 2024 01:00 PM AMBULATORY - MEDICINE [facility] [place] [facility] Jun 06, 2024 01:00 PM [facility] Jun 13, 2024 01:00 PM AMBULATORY - MEDICINE 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 Ordering Provider: NALLELY DOE Report Released Date/Time: Mar 29, 2024 09:37 AM Reporting Lab: [facility] [address] [facility] [address] Performing Lab: [facility] [address] [facility] [address] CHOLESTEROL 167 mg/dL TRIGLYCERIDE 231 mg/dL H 0-150 LDL calculated 80 mg/dL 0-129 CHOL/HDL 4.1 HDL CHOLESTEROL 41 mg/dL 40-60 Apr 05, 2024 09:14 AM [facility] BASIC METABOLIC PANEL (fasting) Specimen Type: SERUM No comment entered. Ordering Provider: NALLELY DOE Report Released Date/Time: Mar 29, 2024 09:37 AM Reporting Lab: [facility] [address] [facility] [address] Performing Lab: [address] [address] UREA NITROGEN 22 mg/dL 7-25 GLUCOSE 128 mg/dL H 65-100 SODIUM 140 mmol/L 135-145 POTASSIUM 4.2 mmol/L 3.5-5.0 CHLORIDE 103 mmol/L 100-110 CO2 26 meq/L 20-30 CREATININE, Serum 1.02 mg/dL 0.50-1.40 eGFR(CKD-EPI 2020) 80 mL/min >60 Apr 05, 2024 09:14 AM [facility] VITAMIN B12 Specimen Type: SERUM No comment entered. Ordering Provider: NALLELY DOE Report Released Date/Time: Mar 29, 2024 09:37 AM Reporting Lab: [address] [address] Performing Lab: [address] [address] VITAMIN B12 500 pg/mL 200-900 Apr 05, 2024 09:14 AM [facility] TSH Specimen Type: SERUM No comment entered. Ordering Provider: NALLELY DOE Report Released Date/Time: Mar 29, 2024 09:37 AM Reporting Lab: [address] [address] Performing Lab: [address] [address] TSH 1.38 u[IU]/mL 0.35-5.00 Apr 05, 2024 09:14 AM [facility] CBC Specimen Type: BLOOD No comment entered. Ordering Provider: NALLELY DOE Report Released Date/Time: Mar 29, 2024 09:37 AM Reporting Lab: [facility] [address] [facility] [address] Performing Lab: [facility] [address] [facility] [address] WBC 6.54 10*3/uL 4.50-11.00 RBC 4.83 10*6/uL [...] 04, 2021 02:56 PM VA-TOBACCO NEVER USED [facility] Encounter Notes: All associated encounter notes This section contains the clinical notes associated to the Encounter. Date/Time Encounter Note(s) Provider Source Mar 28, 2024 09:27 AM PRIMARY CARE NURSE PRACTITIONER OUTPATIENT NOTE: LOCAL TITLE: NURSE PRACTITIONER OUTPATIENT NOTE STANDARD TITLE: PRIMARY CARE NURSE PRACTITIONER OUTPATIENT NOTE DATE OF NOTE: MAR 28, 2024@09:27 ENTRY DATE: MAR 28, 2024@09:27:42 AUTHOR: YANCY MOY COSIGNER: URGENCY: STATUS: COMPLETED OUTPATIENT MENTAL HEALTH CLINIC: FOLLOW-UP HPI: STAR DOUGHERTY JR, a 68 y/o male [place] previously diagnosed with Generalized Anxiety Disorder with Panic Attacks presents for [facility] Follow-Up appointment. Last seen by This Provider on 03/01/24 [place]'s Daughter Nallely participated in today's assessment, with his permission. [place]'s daughter notes that has a tendency not to express things and that recent behavioral outburst might have been secondary to bottling up a lot of emotions. In addition to chronic pain [place] was recently told that she's no longer being considered as a candidate for liver transplant and they are looking for a new hospital. reports that Dry mouth has gotten much, much worse. Based on timing [place] agrees that this could be a side effect of QUETIAPINE. Sleep a little bit better with QUETIAPINE but denies benefit otherwise. Anxiety has been pretty consistently been at a 7 or 8 in severity. Panic attacks last week was first panic attack in approximately three years. Daughter expressed strong preference for pharmacogenomic testing despite being cautioned that this intervention is of limited clinical benefit in most cases. Again discussed Group Therapy for chronic pain and expressed interest in [facility] but prefers to wait. Also discussed switching to an SNRI such as duloxetine or venlafaxine, switching to another SSRI, switching to a long acting benzodiazepine such as clonazepam or reinitiating gabapentin or pregabalin. explicitly and convincingly denied SI, intent or [...] anxious Affect: mood congruent LABS AND STUDIES: REVIEWED IN [facility] MEDICAL HISTORY: Active Problem Exposure to potentially hazardous s 09/23/2023 ALISHA DAVISON Cervical radiculopathy M54.12 08/12/2023 MARIBEL SHAFER Tinnitus H93.19, Onset 05/31/2023November,BERTO P Pain R52., Onset 05/31/2023 MAY,BERTO Johnson Anxiety F41.9, Onset 09/04/2021November,BERTO Johnson Benign prostatic hyperplasia N40.1, 06/16/2023 FURCOLONALLELY ALLERGIES: Data on this list may not be complete. Please check JLV. FACILITY ALLERGY/ADR -------- No Remote Allergy/ADR Data available for this patient [facility] [place] [facility] No Known Allergies MEDICATIONS: reviewed and updated in CPRS Active Outpatient Medications (including Supplies): Active Outpatient Medications Status 1) ATORVASTATIN CALCIUM 40MG TAB TAKE ONE-HALF TABLET BY ACTIVE MOUTH ONCE DAILY FOR HIGH CHOLESTEROL 2) BUSPIRONE HCL 10MG TAB TAKE TWO TABLETS BY MOUTH ACTIVE TWICE DAILY ANXIETY 3) CYCLOBENZAPRINE HCL 10MG TAB TAKE ONE TABLET BY MOUTH ACTIVE ONCE DAILY NEEDED FOR MUSCLE SPASM 4) DICLOFENAC NA 1% TOP GEL APPLY 2 GRAMS TOPICALLY FOUR ACTIVE TIMES A DAY FOR OSTEOARTHRITIS - USE DOSING CARD PROVIDED IN BOX 5) FLUOXETINE HCL 20MG CAP TAKE THREE CAPSULES BY MOUTH ACTIVE ONCE DAILY FOR DEPRESSION AND ANXIETY 6) LIDOCAINE 5% PATCH APPLY 1 PATCH TOPICALLY ONCE DAILY ACTIVE NEEDED FOR NERVE PAIN (LEAVE PATCH ON FOR 12 HOURS, THEN REMOVE PATCH) 7) LORAZEPAM 0.5MG TAB TAKE ONE TABLET BY MOUTH ONCE ACTIVE DAILY NEEDED ANXIETY 8) MELOXICAM 15MG TAB TAKE ONE TABLET BY MOUTH ONCE ACTIVE DAILY FOR JOINT INFLAMMATION (TAKE WITH FOOD) 9) QUETIAPINE FUMARATE 200MG TAB TAKE ONE TABLET BY ACTIVE MOUTH AT BEDTIME ANXIETY AND SLEEP (OFF LABEL) SAFETY ASSESSMENT: No acute safety concerns. Convincingly denies any thoughts, intents, or plans to harm self or others. Chronic risk is elevated by status and mental illness but is currently mitigated by participation in treatment and demonstration of help-seeking behaviors. IMPRESSION: Discussed switching to an SNRI such as duloxetine or venlafaxine, switching to another SSRI, switching to a long acting benzodiazepine such as clonazepam or reinitiating gabapentin or pregabalin. [place] also reminded of potential side effects of benzodiazepines, including ataxia, confusion, drowsiness, respiratory depression (especially if combined with other ART HISTORY INSTRUCTOR depressants such as alcohol or opioid medications), increased fall risk and the risk of developing a substance use disorder. agreed to refrain from use of alcohol or opioid medications concurrent with use of benzodiazepine. PDMP and chart review do suggest any history of misuse or diversion. [place] also declined Group or Individual therapy at present. 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 Will increase lorazepam to up to 1 mg daily as needed. Reitereated that this medication should be taken as infrequently as possible. No acute safety concerns Diagnosis: Generalized Anxiety Disorder w/ Panic Attacks Insomnia Disorder PLAN: 1) INCREASE LORAZEPAM FROM 0.5 TO 1 mg PO DAILY PRN 2) CONTINUE FLUoxetine 60 MG PO DAILY 3) INCREASE BUSPIRONE FROM 20 TO 30 MG PO BID 4) DECREASE QUETIAPINE FROM 200 TO 100 MG PO QHS Labs: none today Follow-Up: 04/20/24 Discussed risks and benefits of proposed medication treatments including FDA approved indications and off-label uses, as well as common and severe side effects. [place] comprehended all information discussed, had opportunity to ask questions which were answered to their satisfaction, and voluntarily and without duress agreed to trial as documented. CONTACT AND CRISIS INFO: informed that This Provider can be contacted at , [phone] or via Secure Messaging. 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 [...] MOY Psychiatric Mental Health Nurse Practitioner Signed: 03/28/2024 12:58 YANCY MOY [facility] [place] [facility]
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
--- OUTSIDE RECORDS SUMMARY | 2024-07-31 10:39 | XMS_ITS ---
Author Name [facility] Address [address] [place] [address] Care Team Providers Care Product Manufacturing Professional Name Role Phone MELBA DOE Primary Care [...] PART B Feb 24, 2020 PART B [id number] LADONNA COLEMANSTAR PATIENT MEDICARE (WNR) MEDICARE (M) PART A November 24, 2019 PART A [id number] STAR DOUGHERTY JR PATIENT OFFICE OF REGIONAL COLOR COATER NO-FAULT INSURANCE NO FAULT May 12, 2022 NO FAULT [id number] STAR DOUGHERTY JR PATIENT FOR LIFE TFL* Feb 24, 2020 [id number] STAR DOUGHERTY JR PATIENT [facility] (WNR) TRICA RE(WN R) Jul 26, 2017 (WNR) [id number] ROSALES DOUGHERTY PATIENT Selected Encounter This section includes the information on record at [place] for the Encounter. Date/Time Encounter Type Encounter Description Reason Pro vider Source Apr 17, 2024 10:05 AM Outpatient Encounter [facility] Encounter Template Text not used by [place] Plan of Treatment: Future Appointments (+ 6 months) and Future Tests (+/- 45 days) The Plan of Treatment section includes future care activities for the patient from all [place] [facility]. This section includes future appointments and future [...] MEDICINE [facility] [place] [facility] Apr 19, 2024 01:00 PM AMBULATORY - MEDICINE [facility] [place] [facility] Apr 24, 2024 11:00 AM AMBULATORY - PSYCHIATRY [facility] [place] [facility] Apr 24, 2024 01:00 PM AMBULATORY - MEDICINE [facility] [place] [place] [facility] Apr 26, 2024 01:00 PM AMBULATORY - MEDICINE [facility] [place] [facility] May 01, 2024 02:45 PM AMBULATORY - MEDICINE [facility] [place] [facility] May 02, 2024 02:00 PM AMBULATORY - MEDICINE [facility] [place] [facility] May 02, 2024 02:30 PM AMBULATORY - MEDICINE [facility] [place] [facility] May 03, 2024 03:00 PM AMBULATORY - MEDICINE [facility] [place] [facility] May 10, 2024 03:45 PM AMBULATORY - MEDICINE [facility] [place] [facility] May 17, 2024 01:45 PM AMBULATORY - MEDICINE [facility] [place] [facility] May 22, 2024 10:30 AM AMBULATORY - PSYCHIATRY [facility] [place] [facility] May 26, 2024 11:00 AM AMBULATORY - MEDICINE [facility] [place] [facility] May 31, 2024 01:00 PM AMBULATORY - MEDICINE [facility] [place] [place] [facility] Jun 06, 2024 01:00 PM AMBULATORY - MEDICINE [facility] [place] [place] [facility] Jun 13, 2024 01:00 PM AMBULATORY - [place]ICINE [place] [facility] [facility] Jun 14, 2024 11:00 AM AMBULATORY - [place]ICINE [place] [facility] Jun 20, 2024 11:00 AM AMBULATORY - PSYCHIATRY [place] [facility] [place] [facility] Jun 20, 2024 01:00 PM AMBULATORY - MEDICINE [facility] Jun 27, 2024 01:00 PM AMBULATORY - MEDICINE [facility] Active, Pending, and Scheduled Orders This section includes a listing of several types of active, pending, and scheduled orders, including clinic medications orders, diagnostic test orders, procedure orders and consult orders; where the start date of the order is 45 days before the date of the Encounter or 45 days after the date of theEncounter. The data comes from all [place] treatment facilities. Test Date/Time Test Type Test Details Facility Name Mar 29, 2024 09:37 AM Consult Order COMMUNITY CARE-COLONOSCOPY SURVEILLANCE Cons Cattyman's Choice [facility] Jun 01, 2024 08:16 AM Consult Order PSYCHOTHER APY BHIP/NHM OUTPT Cons Cattyman's Choice [facility] Lab Results: +/- 30 days of the [...] Range Comment Apr 05, 2024 09:14 AM [facility] LIPID PANEL FASTING Specimen Type: SERUM No comment entered. Ordering Provider: MELBA DOE Report Released Date/Time: Mar 29, 2024 09:37 AM Reporting Lab: [address] [address] Performing Lab: [address] [address] CHOLESTEROL 167 mg/dL TRIGLYCERIDE 231 mg/dL H 0-150 LDL calculated 80 mg/dL 0-129 CHOL/HDL 4.1 HDL CHOLESTEROL 41 mg/dL 40-60 Apr 05, 2024 09:14 AM [facility] BASIC METABOLIC PANEL (fasting) Specimen Type: SERUM No comment entered. Ordering Provider: MELBA DOE Report Released Date/Time: Mar 29, 2024 09:37 AM Reporting Lab: [address] [address] Performing Lab: [address] [address] UREA NITROGEN 22 mg/dL 7-25 GLUCOSE 128 mg/dL H 65-100 SODIUM 140 mmol/L 135-145 POTASSIUM 4.2 mmol/L 3.5-5.0 CHLORIDE 103 mmol/L 100-110 CO2 26 meq/L 20-30 CREATININE, Serum 1.02 mg/dL 0.50-1.40 eGFR(CKD-EPI 2020) 80 mL/min >60 Apr 05, 2024 09:14 AM [facility] VITAMIN B12 Specimen Type: SERUM No comment entered. Ordering Provider: MELBA DOE Report Released Date/Time: Mar 29, 2024 09:37 AM Reporting Lab: [address] [address] Performing Lab: [address] [address] VITAMIN B12 500 pg/mL 200-900 Apr 05, 2024 09:14 AM [facility] TSH Specimen Type: SERUM No comment entered. Ordering Provider: MELBA DOE Report Released Date/Time: Mar 29, 2024 09:37 AM Reporting [facility]: [facility] [address] Performing Lab: [facility] [address] TSH 1.38 u[IU]/mL 0.35-5.00 Apr 05, 2024 09:14 AM [facility] CBC Specimen Type: BLOOD No comment entered. Ordering Provider: MELBA DOE Report Released Date/Time: Mar 29, 2024 09:37 AM Reporting Lab: [place] [facility] [place] [place] [facility] [address] [facility] [address] Performing Lab: [place] [facility] [place] [facility] [address] [facility] [address] WBC 6.54 10*3/uL 4.50-11.00 RBC 4.83 10*6/uL [...] 04, 2021 02:56 PM [facility]ACCO NEVER [facility]ED [facility] Encounter Notes: All associated encounter notes This section contains the clinical notes associated to the Encounter. Date/Time Encounter Note(s) Provider Source Apr 17, 2024 10:05 AM ADMINISTRATIVE NOT E: LOCAL TITLE: ADMINISTRATIVE NOTE STANDARD TITLE: ADMINISTRATIVE NOTE DATE OF NOTE: APR 17, 2024@10:05 ENTRY DATE: APR 17, 2024@10:06:04 AUTHOR: YANCY MOY EXP COSIGNER: URGENCY: STATUS: COMPLETED [place] contacted This Provider to cancel his appointment on 04/20/24 and agreed to RTC for 04/24/24 /monisha/ YANCY MOY Psychiatric Mental Health Nurse Practitioner Signed: 04/17/2024 10:06 Receipt Acknowledged By: 04/17/2024 10:09 /monisha/ YESSICA COSTELLO ADVANCED COLD STRIP ROLLER YANCY MOY [facility]
--- OUTSIDE RECORDS SUMMARY | 2024-07-31 10:39 | XMS_ITS ---
Author Name [facility] [place] Organization [facility] [place] Address [address] [place] [address] Care Team Providers Care Engineering Model Maker Name Role Phone MELBA DOE Primary Care [...] PART B Feb 24, 2020 PART B [id number] LADONNA COLEMANSTAR PATIENT MEDICARE (WNR) MEDICARE (M) PART A November 24, 2019 PART A [id number] DOUGHERTY STAR COLEMAN PATIENT OFFICE OF REGIONAL ANESTHESIOLOGY MEDICAL DOCTOR NO-FAULT INSURANCE NO FAULT May 12, 2022 NO FAULT [id number] STAR DOUGHERTY JR PATIENT FOR LIFE TFL* Feb 24, 2020 [id number] STAR DOUGHERTY JR PATIENT [facility] (WNR) TRICA RE(WN R) Jul 26, 2017 (WNR) [id number] [phone] [id number] ROSALES DOUGHERTY PATIENT Selected Encounter This section includes the information on record at CT for the Encounter. Date/Time Encounter Type Encounter Description Reason Provider Source Mar 30, 2024 09:00 AM WELLNESS ASSESSMENT BY NONP HEALTH/WELLBEING [facility] ICD-10-CM Z73.3 Stress, not elsewhere classified ALEXANDER DRAKE [place] Encounter Template Text not used by CT Assessments - Encounter Diagnoses This section includes the primary and secondary diagnoses documented for the Encounter. Date/Time Primary/Secondary Diagnosis Diagnosis Name Provider Source Apr 18, 2024 08:49 AM PRIMARY Stress, not elsewhere classified ALEXANDER DRAKE [place] [facility] [place] [facility] Plan of Treatment: Future Appointments (+ 6 months) and Future Tests (+/- 45 days) The Plan of Treatment section includes future care activities for the patient [facility] This section includes future appointments and future orders which are active, pending or scheduled. Future Appointments This section includes appointments that were scheduled to occur 6 months from the date of the Encounter, up to a maximum of 20 appointments. The data comes from all CT treatment facilities. Appointment Date/Time Appointment Type Appointme nt Facility Name Apr 12, 2024 11:00 AM AMBULATORY - MEDICINE CT C [facility] [place] [facility] Apr 14, 2024 08:30 AM AMBULATORY - MEDICINE CT C [facility] [place] [facility] Apr 18, 2024 08:00 AM AMBULATORY - MEDICINE CT C [facility] [place] [facility] Apr 19, 2024 01:00 PM AMBULATORY - MEDICINE CT C [facility] [facility] Apr 24, 2024 11:00 AM AMBULATORY - PSYCHIATRY CT [facility] [place] [facility] Apr [...] 03, 2024 03:00 PM AMBULATORY - MEDICINE CT C [facility] [place] [facility] May 10, 2024 03:45 PM AMBULATORY - MEDICINE CT C [facility] [place] [facility] May 17, 2024 01:45 PM AMBULATORY - MEDICINE CT C [facility] [place] [facility] May 22, 2024 10:30 AM AMBULATORY - PSYCHIATRY CT [facility] [place] [facility] May 26, 2024 11:00 AM AMBULATORY - MEDICINE CT C [facility] [place] [facility] May 31, 2024 01:00 PM AMBULATORY - MEDICINE CT C [facility] [place] [facility] Jun 06, 2024 01:00 PM AMBULATORY - MEDICINE CT C [facility] [place] [facility] Jun 13, 2024 01:00 PM AMBULATORY - MEDICINE CT C [facility] [place] [facility] Jun 14, 2024 11:00 AM AMBULATORY - MEDICINE CT C [facility] [place] [facility] Jun 20, 2024 11:00 AM AMBULATORY - [facility]IATRY [facility] Active, Pending, and Scheduled Orders This section includes a listing of several types of active, pending, and scheduled orders, including clinic medications orders, diagnostic test orders, procedure orders and consult orders; where the start date of the order is 45 days before the date of the Encounter or 45 days after the date of theEncounter. The data comes from all CT treatment facilities. Test Date/Time Test Type Test Details Facility Name Mar 29, 2024 09:37 AM Consult Order COMMUNITY CARE-COLONOSCOPY SURVEILLANCE Cons Data Warehouse Analyst's Choice [facility] Lab Results: +/- 30 days of the encounter This section includes the Chemistry and Hematology Lab Results on record with CT for the patient. Radiology Reports and Pathology Reports are provided separately, in subsequent sections. Lab Results This section contains the Chemistry/Hematology Results that were resulted 30 days before or 30 daysafter the date of the Encounter. Date/Time Source Result Type Result - Unit Interpretation Reference Range Comment Apr 05, 2024 09:14 AM [facility] LIPID PANEL FASTING Specimen Type: SERUM No comment entered. Ordering Provider: MELBA DOE Report Released Date/Time: Mar 29, 2024 09:37 AM Reporting Lab: [address] [address] Performing Lab: [address] [place] [address] CHOLESTEROL 167 mg/dL TRIGLYCERIDE 231 mg/dL H 0-150 LDL calculated 80 mg/dL 0-129 CHOL/HDL 4.1 HDL CHOLESTEROL 41 mg/dL 40-60 Apr 05, 2024 09:14 AM [facility] VITAMIN B12 Specimen Type: SERUM No comment entered. Ordering Provider: MLEBA DOE Report Released Date/Time: Mar 29, 2024 09:37 AM Reporting Lab: [facility] [address] [address] Performing Lab: [address] [address] VITAMIN B12 500 pg/mL 200-900 Apr 05, 2024 09:14 AM [facility] BASIC METABOLIC PANEL (fasting) Specimen Type: SERUM No comment entered. Ordering Provider: MELBA DOE Report Released Date/Time: Mar 29, 2024 09:37 AM Reporting Lab: [facility] [address] [address] Performing Lab: [address] [address] UREA NITROGEN 22 mg/dL 7-25 GLUCOSE 128 mg/dL H 65-100 SODIUM 140 mmol/L 135-145 POTASSIUM 4.2 mmol/L 3.5-5.0 CHLORIDE 103 mmol/L 100-110 CO2 26 meq/L 20-30 CREATININE, Serum 1.02 mg/dL 0.50-1.40 eGFR(CKD-EPI 2020) 80 mL/min >60 Apr 05, 2024 09:14 AM [facility] TSH Specimen Type: SERUM No comment entered. Ordering Provider: MELBA DOE Report Released Date/Time: Mar 29, 2024 09:37 AM Reporting Lab: [facility] [address] [address] Performing Lab: [address] [address] TSH 1.38 u[IU]/mL 0.35-5.00 Apr 05, 2024 09:14 AM [facility] CBC Specimen Type: BLOOD No comment entered. Ordering Provider: MELBA DOE Report Released Date/Time: Mar 29, 2024 09:37 AM Reporting Lab: [facility] [address] [address] Performing Lab: [facility] [address] [address] WBC 6.54 10*3/uL 4.50-11.00 RBC 4.83 10*6/uL [...] and tobacco- related health factors from the CT facility where the Encounter took place. Current Smoking Status This section includes the most current smoking, or tobacco-related health factor, from the CT facility where the Encounter took place. Date/Time Current Smoking Status Comment Nick kowalski Sep 04, 2021 02:56 PM VA-TOBACCO NEVER USED [facility] Encounter Notes: All associated encounter notes This section contains the clinical notes associated to the Encounter. Date/Time Encounter Note(s) Provider Source Mar 30, 2024 09:49 AM [facility]AT[facility]ALTH NOTE: LOCAL TITLE: HEALTH AND WELLNESS COACHING STANDARD TITLE: [facility] NOTE DATE OF NOTE: MAR 30, 2024@09:49 ENTRY DATE: MAR 30, 2024@09:49:49 AUTHOR: ALEXANDER DRAKE COSIGNER: URGENCY: STATUS: COMPLETED Health and Wellness Coaching HEALTH AND WELLNESS COACHING VISIT *Type of Visit: In-person *Session number: Coaching Session #3 Time spent with [place]: 30-60 minutes Today's coaching session aligns with the [place]'s [place], [place], or Purpose in the following ways: Mental well-being, physical health, family relationships. was seen for Health and Wellness Coaching related to: Working the Body Recharge Family, Friends, and Co-workers Power of the Mind [employer] GOALS Long-Term Whole Health Goals: Recharge Collaboratively identified new long-term Whole Health goal(s) of: In the next 6 months - build consistency with going to bed earlier and rising earlier in the morning. Gains: sleep, energy, motivation, and mood. Short-Term S.M.A.R.T. Goals 's S.M.A.R.T. goal: Recharge In the next 2 months: build consistency with sleep/rest/relaxation time. Reviewed progress on previously set S.M.A.R.T. goal of: Goal 1: Recharge Set alarms on phone 10pm and 7:30am. Begin routine to be in bed no later than 10pm, daily. Prep 15-30 minutes prior. Wake and start day at 7:30am [place] reports goal was: Partially met Started getting ready for bedtime at 10pm and awaking earlier in the AM. Scheduling appointments title lawyer is helping with motivation. DISCUSSION: Patient was informed of confidentiality policy. [facility] Property Master and Patient reviewed and discussed action step successes, and challenges. Session focused on mindful awareness, values, strengths, and MAP. Patient continuing to focus in area of: Restore. Property Master introduced and reviewed long and short-term S.M.A.R.T. goals. Patient set SMART goals, reviewed and developed action steps. Patient expressed desire to continue building consistency toward desired goals. Property Master provided guidance and assistance with smartening up goals. Patient requested to schedule next Coaching appt. on April @ 9:00am F2F. PLAN: Patient to continue action steps in focus area: Recharge. Build consistency with going to bed each evening by 10:00am and waking by 7am. To begin spending time, daily, in outdoor screen room, sorting puzzle pieces, for relaxation time during the day. Property Master and patient will review action steps, successes, and challenges. Patient to continue building action steps towards desired goals. Visit Plan: Arranged follow-up with [place]: April @ 9:00am [place] agreed to follow-up by: (F2F) Face to Face Appt. RTC has been placed: patient scheduled /es/ ALEXANDER DRAKE [facility] Property Master Signed: 03/30/2024 14:16 Receipt Acknowledged By: 03/30/2024 15:16 /monisha/ Massiel Nixon, PhD Clinical Psychologist VIDAL,ALEXANDER CUEVAS CT CNTL WSTRN [facility]
--- OUTSIDE RECORDS SUMMARY | 2024-07-31 10:39 | XMS_ITS | Encounter Summary ---
Author Name [facility] [place] [place] Organization [place] Address [address] [place] [address] Care Team Providers Care Stitch Bonder Machine Operator Helper Name Role Phone MELBA DOE Primary Care [...] PART B Feb 24, 2020 PART B [id number] STAR DOUGHERTY JR PATIENT MEDICARE (WNR) MEDICARE (M) PART A November 24, 2019 PART A [id number] STAR DOUGHERTY JR PATIENT OFFICE OF REGIONAL SOLID WASTE ANALYST NO-FAULT INSURANCE NO FAULT May 12, 2022 NO FAULT [id number] STAR DOUGHERTY JR PATIENT FOR LIFE TFL* Feb 24, 2020 [id number] STAR DOUGHERTY JR PATIENT [facility] (WNR) TRICA RE(WN R) Jul 26, 2017 (WNR) [id number] 14 ROSALES DOUGHERTY [place] PATIENT Selected Encounter This section includes the information on record at [place] for the Encounter. Date/Time Encounter Type Encounter Description Reason Pro vider Source Apr 05, 2024 08:15 AM Outpatient Encounter CI TREATMENT IHE Encounter Template Text not used by [place] Plan of Treatment: Future Appointments (+ 6 months) and Future Tests (+/- 45 days) The Plan of Treatment section includes future care activities for the patient from all [place] [facility] This section includes future appointments [...] - MEDICINE [place] [facility] [place] [facility] Apr 14, 2024 08:30 AM AMBULATORY - MEDICINE [place] [facility] [place] [facility] Apr 18, 2024 08:00 AM AMBULATORY - MEDICINE [place] [facility] [place] [facility] Apr 19, 2024 01:00 PM AMBULATORY - MEDICINE [place] [facility] [place] [facility] Apr 24, 2024 11:00 AM AMBULATORY - PSYCHIATRY [place] [facility] [place] [facility] Apr 24, 2024 01:00 PM AMBULATORY - MEDICINE [place] [facility] [place] [facility] Apr 26, 2024 01:00 PM AMBULATORY - MEDICINE [place] [facility] [place] [facility] May 01, 2024 02:45 PM AMBULATORY - MEDICINE [place] [facility] [place] [facility] May 02, 2024 02:00 PM AMBULATORY - MEDICINE [place] [facility] [place] [facility] May 02, 2024 02:30 PM AMBULATORY - MEDICINE [place] [facility] [place] [facility] May 03, 2024 03:00 PM AMBULATORY - MEDICINE [place] [facility] [place] [facility] May 10, 2024 03:45 PM AMBULATORY - MEDICINE [place] [facility] [place] [facility] May 17, 2024 01:45 PM AMBULATORY - MEDICINE [place] [facility] [place] [facility] May 22, 2024 10:30 AM AMBULATORY - PSYCHIATRY [place] [facility] [facility] May 26, 2024 11:00 AM AMBULATORY - MEDICINE [place] [facility] [place] [facility] May 31, 2024 01:00 PM AMBULATORY - MEDICINE [place] C [place] [place] [facility] Jun 06, 2024 01:00 PM AMBULATORY - MEDICINE [place] C [facility] [place] [facility] Jun 13, 2024 01:00 PM AMBULATORY - MEDICINE [place] [facility] [facility] Jun 14, 2024 11:00 AM AMBULATORY - [facility]ICINE [facility] Jun 20, 2024 11:00 AM AMBULATORY - [facility]RY [facility] Active, Pending, and Scheduled Orders This [...] AM Consult Order COMMUNITY CARE-COLONOSCOPY SURVEILLANCE Cons Regional Sales Consultant's Choice [facility] Lab Results: +/- 30 days [...] Range Comment Apr 05, 2024 09:14 AM [facility] LIPID PANEL FASTING Specimen Type: SERUM No comment entered. Ordering Provider: MELBA DOE Report Released Date/Time: Mar 29, 2024 09:37 AM Reporting Lab: [facility] [address] [address] Performing Lab: [facility] [address] [address] CHOLESTEROL 167 mg/dL TRIGLYCERIDE 231 mg/dL H 0-150 LDL calculated 80 mg/dL 0-129 CHOL/HDL 4.1 HDL CHOLESTEROL 41 mg/dL 40-60 Apr 05, 2024 09:14 AM [facility] VITAMIN B12 Specimen Type: SERUM No comment entered. Ordering Provider: MELBA DOE Report Released Date/Time: Mar 29, 2024 09:37 AM Reporting Lab: [facility] [address] [address] Performing Lab: [facility] [address] VITAMIN B12 500 pg/mL 200-900 Apr 05, 2024 09:14 AM [facility] BASIC METABOLIC PANEL (fasting) Specimen Type: SERUM No comment entered. Ordering Provider: MELBA DOE Report Released Date/Time: Mar 29, 2024 09:37 AM Reporting Lab: [address] [address] Performing Lab: [address] [address] UREA NITROGEN 22 mg/dL 7-25 GLUCOSE 128 mg/dL H 65-100 SODIUM 140 mmol/L 135-145 POTASSIUM 4.2 mmol/L 3.5-5.0 CHLORIDE 103 mmol/L 100-110 CO2 26 meq/L 20-30 CREATININE, Serum 1.02 mg/dL 0.50-1.40 eGFR(CKD-EPI 2020) 80 mL/min >60 Apr 05, 2024 09:14 AM [facility] TSH Specimen Type: SERUM No comment entered. Ordering Provider: MELBA DOE Report Released Date/Time: Mar 29, 2024 09:37 AM Reporting Lab: [facility] [address] Performing Lab: [facility] [address] TSH 1.38 u[IU]/mL 0.35-5.00 Apr 05, 2024 09:14 AM [facility] CBC Specimen Type: BLOOD No comment entered. Ordering Provider: MELBA DOE Report Released Date/Time: Mar 29, 2024 09:37 AM Reporting Lab: [address] [address] Performing Lab: [facility] [address] [place] [address] WBC 6.54 10*3/uL 4.50-11.00 RBC 4.83 10*6/uL [...] 04, 2021 02:56 PM VA-TOBACCO NEVER USED [facility] Encounter Notes: All associated encounter notes This section contains the clinical notes associated to the Encounter. Date/Time Encounter Note(s) Provider Source Apr 05, 2024 08:15 AM ADMINISTRATIVE NOT E: LOCAL TITLE: ADMINISTRATIVE NOTE STANDARD TITLE: ADMINISTRATIVE NOTE DATE OF NOTE: APR 05, 2024@08:15 ENTRY DATE: APR 05, 2024@08:16:16 AUTHOR: PATRICIA ARMSTRONG EXP COSIGNER: URGENCY: STATUS: COMPLETED left voicemail and explained appointment is cancelled on 04/05/2024. /monisha/ DARYA BEAR ADVANCED RN LPN LVN Signed: 04/05/2024 08:16 PATRICIA ARMSTRONG [facility]
--- OUTSIDE RECORDS SUMMARY | 2024-07-31 10:39 | XMS_ITS | Encounter Summary ---
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 Date/Time Encounter Type Encounter Description Reason Pro vider Source Apr 11, 2024 11:06 AM Outpatient Encounter PAIN CLINIC IHE Encounter Template Text not used by [place] Plan of Treatment: Future Appointments (+ 6 months) and Future Tests (+/- 45 days) The Plan of Treatment section includes future care activities for the patient from all [place] [facility]. This section includes future appointments [...] AMBULATORY - MEDICINE [place] [facility] Jun 06, 2024 01:00 PM AMBULATORY - MEDICINE [place] C [place] [facility] Jun 13, 2024 01:00 PM AMBULATORY - MEDICINE [place] [facility] Jun 14, 2024 11:00 AM AMBULATORY - MEDICINE [facility] Jun 20, 2024 11:00 AM AMBULATORY - PSYCHIATRY [facility] Active, Pending, and Scheduled Orders This section includes a listing of several types of active, pending, and scheduled orders, including clinic medications orders, diagnostic test orders, procedure orders and consult orders; where the start date of the order is 45 days before the date of the Encounter or 45 days after the date of theEncounter. The data comes from all [place] treatment facilities. Test Date/Time Test Type Test Details Facility Name Mar 29, 2024 09:37 AM Consult Order COMMUNITY CARE-COLONOSCOPY SURVEILLANCE Cons Vendette's Choice [facility] Lab Results: +/- 30 days of [...] Range Comment Apr 05, 2024 09:14 AM [facility] LIPID PANEL FASTING Specimen Type: SERUM No comment entered. Ordering Provider: MELBA DOE Report Released Date/Time: Mar 29, 2024 09:37 AM Reporting Lab: [facility] [address] [address] Performing Lab: [facility] [address] [facility] [address] CHOLESTEROL 167 mg/dL TRIGLYCERIDE 231 mg/dL H 0-150 LDL calculated 80 mg/dL 0-129 CHOL/HDL 4.1 HDL CHOLESTEROL 41 mg/dL 40-60 Apr 05, 2024 09:14 AM [facility] VITAMIN B12 Specimen Type: SERUM No comment entered. Ordering Provider: MELBA ODE Report Released Date/Time: Mar 29, 2024 09:37 AM Reporting Lab: [facility]ONTR[facility] [address] [facility] [address] Performing Lab: [facility]ITAL[facility] [address] [address] VITAMIN B12 500 pg/mL 200-900 Apr 05, 2024 09:14 AM [facility] BASIC METABOLIC PANEL (fasting) Specimen Type: SERUM No comment entered. Ordering Provider: MELBA DOE Report Released Date/Time: Mar 29, 2024 09:37 AM Reporting Lab: [facility]ITAL[facility] [address] [address] Performing Lab: [facility] [address] UREA NITROGEN 22 mg/dL 7-25 GLUCOSE 128 mg/dL H 65-100 SODIUM 140 mmol/L 135-145 POTASSIUM 4.2 mmol/L 3.5-5.0 CHLORIDE 103 mmol/L 100-110 CO2 26 meq/L 20-30 CREATININE, Serum 1.02 mg/dL 0.50-1.40 eGFR(CKD-EPI 2020) 80 mL/min >60 Apr 05, 2024 09:14 AM [facility] TSH Specimen Type: SERUM No comment entered. Ordering Provider: MELBA DOE Report Released Date/Time: Mar 29, 2024 09:37 AM Reporting Lab: [facility]ITAL[facility] [address] [address] Performing Lab: [facility]ITALRL TRN [facility] [address] [address] [address] TSH 1.38 u[IU]/mL 0.35-5.00 Apr 05, 2024 09:14 AM [facility] CBC Specimen Type: BLOOD No comment entered. Ordering Provider: MELBA DOE Report Released Date/Time: Mar 29, 2024 09:37 AM Reporting Lab: [facility] [address] Performing Lab: [facility] [place] [place] [address] WBC 6.54 10*3/uL 4.50-11.00 RBC 4.83 10*6/uL [...] place. Date/Time Current Smoking Status Comment Facil itchaz Sep 04, 2021 02:56 PM VA-TOBACCO NEVER USED [facility] Encounter Notes: All associated encounter notes This section contains the clinical notes associated to the Encounter. Date/Time Encounter Note(s) Provider Source Apr 11, 2024 11:06 AM TELEPHONE ENCOUNTE R NOTE: LOCAL TITLE: TELEPHONE NOTE/SPECIALTY CLINIC STANDARD TITLE: TELEPHONE ENCOUNTER NOTE DATE OF NOTE: APR 11, 2024@11:06 ENTRY DATE: APR 11, 2024@11:07:02 AUTHOR: ROCIO ROBERTS COSIGNER: URGENCY: STATUS: COMPLETED Called and spoke with pt to reminded them that they have a FTF appt with the Pain clinic on 04/12/2024 at 1100. Location was confirmed. /monisha/ ROCIO ROBERTS ADVANCED ELECTRICAL TECHNICIAN Signed: 04/11/2024 11:07 ROCIO ROBERTS [facility]
--- OUTSIDE RECORDS SUMMARY | 2024-07-31 10:39 | XMS_ITS ---
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 Date/Time Encounter Type Encounter Description Reason Provider Source Apr 20, 2024 08:53 AM QNHP OL DIG ASSMT&MGMT 5-10 PAIN CLINIC ICD-10-CM M54.12 Radiculopathy, cervical region CESAR LOYA E Encounter Template Text not used by [place] Assessments - Encounter Diagnoses This section includes the primary and secondary diagnoses documented for the Encounter. Date/Time Primary/Secondary Diagnosis Diagnosis Name Provider Source Apr 20, 2024 08:57 AM PRIMARY Radiculopathy, cervical region CESAR LOYA [place] [facility] [place] [facility] Apr 20, 2024 08:57 AM SECONDARY Pain, unspecified CESAR LOYA [place] [facility] [place] [facility] Plan of Treatment: Future Appointments (+ 6 months) and Future Tests (+/- 45 days) The Plan of Treatment section includes future care activities for the patient from all [place] [facility]. This section includes future appointments and future orders which are active, pending or scheduled. Future Appointments This section includes appointments that were scheduled to occur 6 months from the date of the Encounter, up to a maximum of 20 appointments. The data comes from all [place] treatment facilities. Appointment Date/Time Appointment Type Appointme nt Facility Name Apr 24, 2024 11:00 AM AMBULATORY - PSYCHIATRY [place] [facility] [place] [facility] Apr 24, 2024 01:00 PM AMBULATORY - MEDICINE [place] [facility] [place] [facility] Apr 26, 2024 01:00 PM AMBULATORY - MEDICINE [place] [facility] [place] [facility] May 01, 2024 02:45 PM AMBULATORY - MEDICINE [place] [facility] [place] [facility] May 02, 2024 02:00 PM AMBULATORY - MEDICINE [place] [facility] [place] [facility] May 02, 2024 02:30 PM AMBULATORY - MEDICINE [place] [facility] [place] [facility] May 03, 2024 03:00 PM AMBULATORY - MEDICINE [place] [facility] [place] [facility] May 10, 2024 03:45 PM AMBULATORY - MEDICINE [place] [facility] [place] [facility] May 17, 2024 01:45 PM AMBULATORY - MEDICINE [place] [facility] [place] [facility] May 22, 2024 10:30 AM AMBULATORY - PSYCHIATRY [place] [facility] [place] [facility] May 26, 2024 11:00 AM AMBULATORY - MEDICINE [place] [facility] [place] [facility] May 31, 2024 01:00 PM AMBULATORY - MEDICINE [place] [facility] [place] [facility] Jun 06, 2024 01:00 PM AMBULATORY - MEDICINE [place] [facility] [place] [facility] Jun 13, 2024 01:00 PM AMBULATORY - MEDICINE [place] [facility] [place] [facility] Jun 14, 2024 11:00 AM AMBULATORY - MEDICINE [place] [facility] [place] [facility] Jun 20, 2024 11:00 AM AMBULATORY - PSYCHIATRY [place] [facility] [place] [facility] Jun 20, 2024 01:00 PM AMBULATORY - MEDICINE [place] [facility] [place] [facility] Jun 27, 2024 01:00 PM AMBULATORY - MEDICINE [place] [facility] [place] [facility] Jul 04, 2024 01:00 PM AMBULATORY - MEDICINE [place] [facility] [place] [facility] Jul 05, 2024 01:00 PM AMBULATORY - MEDICINE [place] [facility] [place] [facility] Active, Pending, and Scheduled Orders This section includes a listing of several types of active, pending, and scheduled orders, including clinic medications orders, diagnostic test orders, procedure orders and consult orders; where the start date of the order is 45 days before the date of the Encounter or 45 days after the date of theEncounter. The data comes from all [place] treatment facilities. Test Date/Time Test Type Test Details Facility Name Mar 29, 2024 09:37 AM Consult Order COMMUNITY CARE-COLONOSCOPY SURVEILLANCE Cons Technical Specialist Cytology's Choice [place] [facility] [place] [facility] Jun 01, 2024 08:16 AM Consult Order PSYCHOTHER APY BHIP/NHM OUTPT Cons Technical Specialist Cytology's Choice [facility] [place] [facility] Lab Results: +/- 30 days of the encounter This section includes the Chemistry and Hematology Lab Results on record with [place] for the patient. Radiology Reports and Pathology Reports are provided separately, in subsequent sections. Lab Results This section contains the Chemistry/Hematology Results that were resulted 30 days before or 30 daysafter the date of the Encounter. Date/Time Source Result Type Result - Unit Interpretation Reference Range Comment Apr 05, 2024 09:14 AM [facility] LIPID PANEL FASTING Specimen Type: SERUM No comment entered. Ordering Provider: MELBA DOE Report Released Date/Time: Mar 29, 2024 09:37 AM Reporting Lab: [facility] [address] [facility] [address] Performing Lab: [address] [address] CHOLESTEROL 167 mg/dL TRIGLYCERIDE 231 mg/dL H 0-150 LDL calculated 80 mg/dL 0-129 CHOL/HDL 4.1 HDL CHOLESTEROL 41 mg/dL 40-60 Apr 05, 2024 09:14 AM [facility] VITAMIN B12 Specimen Type: SERUM No comment entered. Ordering Provider: MELBA DOE Report Released Date/Time: Mar 29, 2024 09:37 AM Reporting Lab: [address] [address] Performing Lab: [address] [address] VITAMIN B12 500 pg/mL 200-900 Apr 05, 2024 09:14 AM [facility] BASIC METABOLIC PANEL (fasting) Specimen Type: SERUM No comment entered. Ordering Provider: MELBA DOE Report Released Date/Time: Mar 29, 2024 09:37 AM Reporting Lab: [address] [address] Performing Lab: [address] [address] UREA NITROGEN 22 mg/dL 7-25 GLUCOSE 128 mg/dL H 65-100 SODIUM 140 mmol/L 135-145 POTASSIUM 4.2 mmol/L 3.5-5.0 CHLORIDE 103 mmol/L 100-110 CO2 26 meq/L 20-30 CREATININE, Serum 1.02 mg/dL 0.50-1.40 eGFR(CKD-EPI 2020) 80 mL/min >60 Apr 05, 2024 09:14 AM [facility] TSH Specimen Type: SERUM No comment entered. Ordering Provider: FURCOLO,MELBA Report Released Date/Time: Mar 29, 2024 09:37 AM Reporting Lab: [facility] [address] [facility] [address] Performing Lab: [facility] [address] [facility] [address] TSH 1.38 u[IU]/mL 0.35-5.00 Apr 05, 2024 09:14 AM [facility] CBC Specimen Type: BLOOD No comment entered. Ordering Provider: MELBA DOE Report Released Date/Time: Mar 29, 2024 09:37 AM Reporting Lab: [facility] [address] [facility] [address] Performing Lab: [facility] [address] [facility] [address] WBC 6.54 10*3/uL 4.50-11.00 RBC 4.83 10*6/uL [...] and tobacco- related health factors from the [place] facility where the Encounter took place. Current Smoking Status This section includes the most current smoking, or tobacco-related health factor, from the [place] facility where the Encounter took place. Date/Time Current Smoking Status Comment Nick kowalski Sep 04, 2021 02:56 PM VA-TOBACCO NEVER USED [facility] Encounter Notes: All associated encounter notes This section contains the clinical notes associated to the Encounter. Date/Time Encounter Note(s) Provider Source Apr 20, 2024 08:53 AM PAIN MEDICATION MG T NOTE: LOCAL TITLE: OPIOID/CONTROLLED SUBSTANCE NOTE STANDARD TITLE: PAIN MEDICATION MGT NOTE DATE OF NOTE: APR 20, 2024@08:53 ENTRY DATE: APR 20, 2024@08:53:36 AUTHOR: CESAR LOYA EXP COSIGNER: URGENCY: STATUS: COMPLETED OPIOID/CONTROLLED SUBSTANCE NOTE Initial Opioid Prescription Indication for therapy: Opioid trial for chronic pain Risk of Opioid therapy was assessed using: STORM database Risk Assessment: - Using the STORM tool and your own clinical judgment, please select your risk assessment. Medium risk: However it has been determined potential benefits outweigh potential risks Prescription Drug Monitoring Program (PDMP): A PDMP note is required at every new prescription for a controlled substance. PDMP HISTORY 1 YEAR Info Disclosed: Patient Demographics Purpose: Accessing Prescription Drug Monitoring Program (PDMP) databases for review of controlled substances prescribed outside of the [place], and any additional information that may become available, as an important component of standard clinical care and in accordance with [facility] policy. 06/22/23 13:34 Long Maldonado MD PDMP [facility] [place] 07/09/23 09:07 Jose F Still PDMP [facility] [place] 08/31/23 08:55 Jose F Still PDMP [facility] [place] 03/22/24 16:09 Jose F Still PDMP [facility] [place] Urine Drug Screen: A urine drug screen is required prior to reaching 90 days of opioid therapy and at least annually thereafter. No data available for: OPIATES SCREEN OXYCODONE SCREEN METHADONE SCREEN BENZODIAZEPINES SCREEN COCAINE SCREEN CANNABINOIDS SCREEN ALCOHOL, ETHYL URINE AMPHETAMINES SCREEN BUPRENORPHINE (URINE) Ethyl Glucuronide Screen Ethyl Sulfate Ethyl Glucuronide Conf *Orders entered today Most Recent Naloxone Prescription Information: Buprenorphine is a partial mu opioid agonist and kappa/delta opioid a ntagonist)with a high affinity for the receptor compared to naloxone. As such, naloxone is not expected to be effective in the reversal of buprenorphine alone. /monisha/ CESAR LOYA CLINICAL PHARMACIST PRACTITIONER, PAIN Signed: 04/20/2024 08:57 CESAR LOYA [place] [facility]
--- OUTSIDE RECORDS SUMMARY | 2024-07-31 10:39 | XMS_ITS ---
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 Date/Time Encounter Type Encounter Description Reason Provider Source Apr 19, 2024 01:00 PM SELF CARE MNGMENT TRAINING PAIN CLINIC ICD-10-CM M54.59 Other low back pain EUSEBIA LAWTON Carlin Encounter Template Text not used by [place] Assessments - Encounter Diagnoses This section includes the primary and secondary diagnoses documented for the Encounter. Date/Time Primary/Secondary Diagnosis Diagnosis Name Provider Source Apr 19, 2024 03:55 PM PRIMARY Other low back pain EUSEBIA LAWTON [place] [facility] [place] [facility] Plan of Treatment: Future Appointments (+ 6 months) and Future Tests (+/- 45 days) The Plan of Treatment section includes future care activities for the patient from all [place] [facility]. This section includes future appointments [...] 24, 2024 11:00 AM AMBULATORY - PSYCHIATRY [place] [facility] [place] [facility] Apr 24, 2024 01:00 PM AMBULATORY - MEDICINE [place] [facility] [place] [facility] Apr 26, 2024 01:00 PM AMBULATORY - MEDICINE [place] [facility] [place] [facility] May 01, 2024 02:45 PM AMBULATORY - MEDICINE [place] [facility] [place] [facility] May 02, 2024 02:00 PM AMBULATORY - MEDICINE [place] [facility] [place] [facility] May 02, 2024 02:30 PM AMBULATORY - MEDICINE [place] [facility] [place] [facility] May 03, 2024 03:00 PM AMBULATORY - MEDICINE [place] [facility] [place] [facility] May 10, 2024 03:45 PM AMBULATORY - MEDICINE [place] [facility] [place] [facility] May 17, 2024 01:45 PM AMBULATORY - MEDICINE [place] [facility] [place] [facility] May 22, 2024 10:30 AM AMBULATORY - PSYCHIATRY [place] [facility] [place] [facility] May 26, 2024 11:00 AM AMBULATORY - MEDICINE [place] [facility] [place] [facility] May 31, 2024 01:00 PM AMBULATORY - MEDICINE [place] [facility] [place] [facility] Jun 06, 2024 01:00 PM AMBULATORY - MEDICINE [place] [facility] [place] [facility] Jun 13, 2024 01:00 PM AMBULATORY - MEDICINE [place] [facility] [place] [facility] Jun 14, 2024 11:00 AM AMBULATORY - MEDICINE [place] [facility] [place] [facility] Jun 20, 2024 11:00 AM AMBULATORY - PSYCHIATRY [place] [facility] [place] [facility] Jun 20, 2024 01:00 PM AMBULATORY - MEDICINE [place] [facility] [place] [facility] Jun 27, 2024 01:00 PM AMBULATORY - MEDICINE [place] [facility] [place] [facility] Jul 04, 2024 01:00 PM AMBULATORY - MEDICINE [place] [facility] [place] [facility] Jul 05, 2024 01:00 PM AMBULATORY - MEDICINE [place] [facility] [place] [facility] [...] of theEncounter. The data comes from all [place] treatment facilities. Test Date/Time Test Type Test Details Facility Name Mar 29, 2024 09:37 AM Consult Order COMMUNITY CARE-COLONOSCOPY SURVEILLANCE Cons Sales Project Manager's Choice [place] [facility] [place] [facility] Jun 01, 2024 08:16 AM Consult Order PSYCHOTHER APY BHIP/NHM OUTPT [facility] Sales Project Manager's Choice [facility] Lab Results: +/- 30 days of the encounter This section includes the Chemistry and Hematology Lab Results on record with [place] for the patient. Radiology Reports and Pathology Reports are provided separately, in subsequent sections. Lab Results This section contains the Chemistry/Hematology Results that were resulted 30 days before or 30 daysafter the date of the Encounter. Date/Time Source Result Type Result - Unit Interpretation Reference Range Comment Apr 05, 2024 09:14 AM [facility] LIPID PANEL FASTING Specimen Type: SERUM No comment entered. Ordering Provider: MELBA DOE Report Released Date/Time: Mar 29, 2024 09:37 AM Reporting Lab: [facility] [address] [address] Performing Lab: [facility] [address] [address] CHOLESTEROL 167 mg/dL TRIGLYCERIDE 231 mg/dL H 0-150 LDL calculated 80 mg/dL 0-129 CHOL/HDL 4.1 HDL CHOLESTEROL 41 mg/dL 40-60 Apr 05, 2024 09:14 AM [facility] VITAMIN B12 Specimen Type: SERUM No comment entered. Ordering Provider: MELBA DOE Report Released Date/Time: Mar 29, 2024 09:37 AM Reporting Lab: [facility] [address] [address] Performing Lab: [facility] [address] [address] VITAMIN B12 500 pg/mL 200-900 Apr 05, 2024 09:14 AM [facility] BASIC METABOLIC PANEL (fasting) Specimen Type: SERUM No comment entered. Ordering Provider: MELBA DOE Report Released Date/Time: Mar 29, 2024 09:37 AM Reporting Lab: [facility] [address] [address] Performing Lab: [facility] [address] [address] UREA NITROGEN 22 mg/dL 7-25 GLUCOSE 128 mg/dL H 65-100 SODIUM 140 mmol/L 135-145 POTASSIUM 4.2 mmol/L 3.5-5.0 CHLORIDE 103 mmol/L 100-110 CO2 26 meq/L 20-30 CREATININE, Serum 1.02 mg/dL 0.50-1.40 eGFR(CKD-EPI 2020) 80 mL/min >60 Apr 05, 2024 09:14 AM [facility] TSH Specimen Type: SERUM No comment entered. Ordering Provider: MELBA DOE Report Released Date/Time: Mar 29, 2024 09:37 AM Reporting Lab: [address] [address] Performing Lab: [address] [address] TSH 1.38 u[IU]/mL 0.35-5.00 Apr 05, 2024 09:14 AM [facility] CBC Specimen Type: BLOOD No comment entered. Ordering Provider: MELBA DOE Report Released Date/Time: Mar 29, 2024 09:37 AM Reporting Lab: [address] [address] Performing Lab: [address] [address] WBC 6.54 10*3/uL 4.50-11.00 RBC 4.83 10*6/uL [...] place. Date/Time Current Smoking Status Comment Nick koawlski Sep 04, 2021 02:56 PM VA-TOBACCO NEVER USED [facility] Encounter Notes: All associated encounter notes This section contains the clinical notes associated to the Encounter. 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 He had increased pain last night. Applied lidocaine patches this morning. Pain, verbal numeric scale 0-10: 7/10 OBJECTIVE: [x]Observation: Antalgic, stiff gait. Slow to rise. THERAPEUTIC EXERCISE: MINUTES: MANUAL THERAPY: MINUTES: GAIT TRAINING: MINUTES: NEUROMUSCULAR EDUCATION: MINUTES: OTHER: MINUTES: MODALITIES: MINUTES: 20 Moist heat neck & lumbar region, seated position. Instruction in initial set-up & use of Ultima 5 device. Reviewed indications, precautions, proper treatment time, electrode placement, electrode care/use/replacement. Instructed to adjust intensity to strong but comfortable . Advised to perform skin checks after use. Hand-out provided with full instructions for set-up, positioning suggestions, and contact info for [employer] to reorder supplies. Trial: 2 channels, neck/periscap region set-up, Constant I Intensity = 2 bars, time 15 minutes Response: This is great, it feels like a massage. Pain: decreased, 7/10 to 5/10 Added Training Intelligence link to Tens educational video so can view with his . She will be helping with electrode placement. [place] also plans to shave low back region to trial there, reminded that electrodes should not be placed over any cuts/abrasions/open areas. [x] Contraindication screen completed prior to modality [x] Skin intact pre/post SELF CARE/EDUCATION: MINUTES: 20 PNE: educated re: connection stress>muscle tension>pain, importance of self-care strategies and tools to interrupt repeated activation of the pain response which keeps the nervous system extra-sensitive. Addressed unhelpful thought r/t self- care that provides short-term benefit isn't worth it. Reinforced importance of graded activity. Encouraged him to return to 5 min of daily walking for now; may add 1 min as tolerated. Education re: AMP group & topics covered. Provided with flyer and details about next in-person cohort. ED/TRAIN SELF-MGMT NONPHY MINUTES: ASSESSMENT: Ed increased his activity level yesterday which resulted in a pain flare (left side of neck and low back). Education was provided re: the role of self-care strategies and building a toolbox of things he can do to turn down the volume on his pain. He was open to trying Tens and reported a 2 point reduction in his pain following this trial. Ed asked a number of appropriate questions and reported that he was looking forward to using his Tens unit at home. PLAN: Plan of care updated, frequency of 1-2x/wk as able. He is only available for 1 follow-up next week due to his 's medical appointments. Continue with updated HEP as prescribed. Interventions to include: Manual therapy (PRN): stm, MET's, myofascial release Aerobic exercise: Nustep, graded activity Therex: LB and LE flexibility, gentle progressive core, diaphragmatic breathing Education: PNE, posture, ergo, bodymechanics, relaxation techniques, graded activity for aerobic exercise Update Training Intelligence HEP as indicated [Access Code: [email or web address]] Patient education was provided for all aspects of care during this clinical encounter. /monisha/ EUSEBIA LAWTON DPT PHYSICAL THERAPIST Signed: 04/19/2024 16:11 EUSEBIA LAWTON [facility]
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
--- OUTSIDE RECORDS SUMMARY | 2024-07-31 10:40 | XMS_ITS ---
Author Name [facility] Organization [place] Address [address] [place] [id number] Care Team Providers Care Supervisory Examiner Name Role Phone MELBA DOE Primary Care [...] PART B Feb 24, 2020 PART B [id number] STAR DOUGHERTY JR PATIENT MEDICARE (WNR) MEDICARE (M) PART A November 24, 2019 PART A [id number] STAR DOUGHERTY JR PATIENT OFFICE OF REGIONAL MARKER DELIVERY NO-FAULT INSURANCE NO FAULT May 12, 2022 NO FAULT [id number] STAR DOUGHERTY JR PATIENT FOR LIFE TFL* Feb 24, 2020 [id number] STAR DOUGHERTY JR PATIENT [facility] (WNR) TRICA RE(WN R) Jul 26, 2017 (WNR) [id number] ROSALES DOUGHERTY PATIENT Selected Encounter This section includes the information on record at [place] for the Encounter. Date/Time Encounter Type Encounter Description Reason Provider Source May 01, 2024 02:45 PM THERAPEUTIC EXERCISES PAIN CLINIC ICD-10-CM M54.59 Other low back pain EUSEBIA LAWTON Carlin Encounter Template Text not used by [place] Assessments - Encounter Diagnoses This section includes the primary and secondary diagnoses documented for the Encounter. Date/Time Primary/Secondary Diagnosis Diagnosis Name Provider Source May 02, 2024 07:47 AM PRIMARY Other low back pain EUSEBIA LAWTON [place] [facility] [place] [facility] Plan of Treatment: Future Appointments (+ 6 months) and Future Tests (+/- 45 days) The Plan of Treatment section includes future care activities for the patient from all [place] [facility]. This section includes future appointments and future orders which are active, pending or scheduled. Future Appointments This section includes appointments that were scheduled to occur 6 months from the date of the Encounter, up to a maximum of 20 appointments. The data comes from all [place] treatment facilities. Appointment Date/Time Appointment Type Appointme nt Facility Name May 02, 2024 02:00 PM AMBULATORY - MEDICINE [place] [facility] [facility] May 02, 2024 02:30 PM AMBULATORY - MEDICINE [place] [facility] [facility] May 03, 2024 03:00 PM AMBULATORY - MEDICINE [place] [facility] [facility] May 10, 2024 03:45 PM AMBULATORY - MEDICINE [place] [facility] [facility] May 17, 2024 01:45 PM AMBULATORY - MEDICINE [place] [facility] [facility] May 22, 2024 10:30 AM AMBULATORY - PSYCHIATRY [place] [facility] [place] [facility] May 26, 2024 11:00 AM AMBULATORY - MEDICINE [place] [facility] [facility] May 31, 2024 01:00 PM AMBULATORY - MEDICINE [place] [facility] [place] [facility] Jun 06, 2024 01:00 PM AMBULATORY - MEDICINE [place] [facility] [facility] Jun 13, 2024 01:00 PM AMBULATORY - MEDICINE [place] [facility] [facility] Jun 14, 2024 11:00 AM AMBULATORY - MEDICINE [place] [facility] [facility] Jun 20, 2024 11:00 AM AMBULATORY - PSYCHIATRY [place] [facility] [place] [facility] Jun 20, 2024 01:00 PM AMBULATORY - MEDICINE [place] [facility] [facility] Jun 27, 2024 01:00 PM AMBULATORY - MEDICINE [facility] [facility] Jul 04, 2024 01:00 PM AMBULATORY - MEDICINE [facility] [place] [facility] Jul 05, 2024 01:00 PM AMBULATORY - MEDICINE [place] [facility] [place] [facility] Jul 10, 2024 08:30 AM AMBULATORY - MEDICINE [place] [facility] [facility] Jul 11, 2024 03:00 PM AMBULATORY - PSYCHIATRY [place] [facility] [place] [facility] Jul 31, 2024 10:30 AM AM[facility] - NONE [facility] Aug 01, 2024 08:45 AM [facility]ULAT[facility] Active, Pending, and Scheduled Orders This section includes a listing of several types of active, pending, and scheduled orders, including clinic medications orders, diagnostic test orders, procedure orders and consult orders; where the start date of the order is 45 days before the date of the Encounter or 45 days after the date of theEncounter. The data comes from all [place] treatment facilities. Test Date/Time Test Type Test Details Facility Name Mar 29, 2024 09:37 AM Consult Order COMMUNITY CARE-COLONOSCOPY SURVEILLANCE Cons [facility] Jun 01, 2024 08:16 AM Consult Order PSYCHOTHER APY BHIP/NHM OUTPT [facility] Venipuncturist's Choice [facility] Lab Results: +/- 30 days of the encounter This section includes the Chemistry and Hematology Lab Results on record with [place] for the patient. Radiology Reports and Pathology Reports are provided separately, in subsequent sections. Lab Results This section contains the Chemistry/Hematology Results that were resulted 30 days before or 30 daysafter the date of the Encounter. Date/Time Source Result Type Result - Unit Interpretation Reference Range Comment Apr 05, 2024 09:14 AM [facility] LIPID PANEL FASTING Specimen Type: SERUM No comment entered. Ordering Provider: MELBA DOE Report Released Date/Time: Mar 29, 2024 09:37 AM Reporting Lab: [facility] [address] [place] [address] Performing Lab: [facility] [address] [facility] [address] CHOLESTEROL 167 mg/dL TRIGLYCERIDE 231 mg/dL H 0-150 LDL calculated 80 mg/dL 0-129 CHOL/HDL 4.1 HDL CHOLESTEROL 41 mg/dL 40-60 Apr 05, 2024 09:14 AM [facility] VITAMIN B12 Specimen Type: SERUM No comment entered. Ordering Provider: MELBA DOE Report Released Date/Time: Mar 29, 2024 09:37 AM Reporting Lab: [facility] [address] [facility] [address] Performing Lab: [address] [address] VITAMIN B12 500 pg/mL 200-900 Apr 05, 2024 09:14 AM [facility] BASIC METABOLIC PANEL (fasting) Specimen Type: SERUM No comment entered. Ordering Provider: MELBA DOE Report Released Date/Time: Mar 29, 2024 09:37 AM Reporting Lab: [facility] [address] [facility] [address] Performing Lab: [address] [address] UREA NITROGEN 22 mg/dL 7-25 GLUCOSE 128 mg/dL H 65-100 SODIUM 140 mmol/L 135-145 POTASSIUM 4.2 mmol/L 3.5-5.0 CHLORIDE 103 mmol/L 100-110 CO2 26 meq/L 20-30 CREATININE, Serum 1.02 mg/dL 0.50-1.40 eGFR(CKD-EPI 2020) 80 mL/min >60 Apr 05, 2024 09:14 AM [facility] TSH Specimen Type: SERUM No comment entered. Ordering Provider: MELBA DOE Report Released Date/Time: Mar 29, 2024 09:37 AM Reporting Lab: [facility] [address] [facility] [address] Performing Lab: [address] [address] TSH 1.38 u[IU]/mL 0.35-5.00 Apr 05, 2024 09:14 AM [facility] CBC Specimen Type: BLOOD No comment entered. Ordering Provider: MELBA DOE Report Released Date/Time: Mar 29, 2024 09:37 AM Reporting Lab: [facility] [address] [facility] [address] Performing Lab: [facility] [address] [facility] [address] WBC 6.54 10*3/uL 4.50-11.00 RBC 4.83 10*6/uL [...] and tobacco- related health factors from the [place] facility where the Encounter took place. Current Smoking Status This section includes the most current smoking, or tobacco-related health factor, from the [place] facility where the Encounter took place. Date/Time Current Smoking Status Comment Nick kowalski Sep 04, 2021 02:56 PM VA-TOBACCO NEVER USED [facility] Encounter Notes: All associated encounter notes This section contains the clinical notes associated to the Encounter. Date/Time Encounter Note(s) Provider Source May 01, 2024 02:49 PM PHYSICAL THERAPY N OTE: LOCAL TITLE: PHYSICAL THERAPY STANDARD TITLE: PHYSICAL THERAPY NOTE DATE OF NOTE: MAY 01, 2024@14:49 ENTRY DATE: MAY 01, 2024@14:49:13 AUTHOR: EUSEBIA LAWTON COSIGNER: URGENCY: STATUS: COMPLETED Initial Evaluation date: 02/10/2024 Treatment #: 7 Treatment time: 45 Diagnosis: Other low back pain(ICD-10-CM M54.59) Provider: Dr. Roth PT Treatment Precautions: Pt identified by full name and . Active problems - Computerized Problem List is the source for the followin. Exposure to potentially hazardous substance 2. Cervical radiculopathy 3. Tinnitus 4. Pain 5. Anxiety 6. Benign prostatic hyperplasia TREATMENT PRECAUTIONS OR DAILY INSTRUCTIONS: (Vitals, surgical precautions etc.) SUBJECTIVE: Today it's the neck. The other day, I tried to go to [employer] and that didn't go well because of the back. Response from previous session: tolerated well; Pain, verbal numeric scale 0-10: 5/10 upper quarter, 5-6/10 lower quarter HEP Adherence: I'm on a more regimented schedule for my exercises. Vet shares that he feels his hips are less stiff since starting his HEP. Doing his HEP before 11am - using handouts (lost his iphone, no chele access) OBJECTIVE: THERAPEUTIC EXERCISE: MINUTES: 40 Posture corrections --cues to increase upright, chin retraction, relax shoulders --cues breathing Pelvic tilts - A/P - poor motor control; lateral, unable despite cues --modified to seated on disc, pelvic tilts - A/P on disc --verbal & tactile cues Cat/cow on disc S/L hip hikes - tactile cues, significant difficulty isolating Bridging - 1 clearance Lower trunk rotation - increased effort dropping knees to left, neutral only increased muscle guarding UQ Supine upper trunk & cervical rotation w/opposite lower trunk rotation -knees to R, UQ to left -verbal and tactile cues for positioning and form -x5 reps Supine diaphragmatic breathing, x 10 S/L modified thoracic rotation - LEFT side x 10 reps S/L mid thoracic rotation - RIGHT side x 10 reps MANUAL THERAPY: MINUTES: GAIT TRAINING: MINUTES: NEUROMUSCULAR EDUCATION: MINUTES: OTHER: MINUTES: MODALITIES: MINUTES: [x] Contraindication screen completed prior to modality [x] Skin intact pre/post SELF CARE/EDUCATION: MINUTES: 5 Continue with HEP, Access Code: [email or web address] ED/TRAIN SELF-MGMT NONPHY MINUTES: ASSESSMENT: Ed p/w fair tolerance to session, no c/o increased pain. Both verbal and tactile cues provided to work on lumbopelvic dissociation, very limited ability to follow verbal cues with significant UQ muscle guarding noted. Ed reported daily performance of his HEP each morning (10 min) and noticed that his hips feel less stiff. He was provided with positive feedback and encouragement to consider adding a second session before bed as able. PLAN: Continue with plan of care, 1-2x/wk as tolerated. Interventions to include: Next visit: trial standing hip hike w/ straight leg, seated torso circles on disc, posture corrections against wall, A/P tilts against wall Manual therapy (PRN): stm, MET's, myofascial release Aerobic exercise: Nustep, graded activity Therex: LB and LE flexibility, gentle progressive core, diaphragmatic breathing Education: PNE, posture, ergo, bodymechanics, relaxation techniques, graded activity for aerobic exercise Update [employer] HEP as indicated [Access Code: [email or web address]] Patient education was provided for all aspects of care during this clinical encounter. /monisha/ EUSEBIA LAWTON DPT PHYSICAL THERAPIST Signed: 05/02/2024 07:47 EUSEBIA LAWTON CN[facility]L [facility]
--- OUTSIDE RECORDS SUMMARY | 2024-07-31 10:40 | XMS_ITS | Encounter Summary ---
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 Garbage Truck Driver Name Role Phone MELBA DOE Primary [...] PART B Feb 24, 2020 PART B [id number] STAR DOUGHERTY JR PATIENT MEDICARE (WNR) MEDICARE (M) PART A November 24, 2019 PART A [id number] STAR DOUGHERTY JR PATIENT OFFICE OF REGIONAL STAFF APPRAISER NO-FAULT INSURANCE NO FAULT May 12, 2022 NO FAULT [id number] STAR DOUGHERTY JR PATIENT FOR LIFE TFL* Feb 24, 2020 [id number] STAR DOUGHERTY JR PATIENT [facility] (WNR) TRICA RE(WN R) Jul 26, 2017 (WNR) [id number] 14 ROSALES DOUGHERTY ROSETTA PATIENT Selected Encounter This section includes the information on record at [place] for the Encounter. Date/Time Encounter Type Encounter Description Reason Provider Source May 11, 2024 08:25 AM Outpatient Encounter EVENT (HISTORICAL) EUSEBIA LAWTON JOANNACarlin Encounter Template Text not used by [place] Plan of Treatment: Future Appointments (+ 6 months) and Future Tests (+/- 45 days) The Plan of Treatment section includes future care activities for the patient from all [place] [facility] This section includes future appointments and future orders which are active, pending or scheduled. Future Appointments This section includes appointments that were scheduled to occur 6 months from the date of the Encounter, up to a maximum of 20 appointments. The data comes from all [place] treatment facilities. Appointment Date/Time Appointment Type Appointme nt Facility Name May 17, 2024 01:45 PM AMBULATORY [facility] MEDICINE [facility] [place] [facility] May 22, 2024 10:30 AM AMBULATORY - PSYCHIATRY [facility] [place] [facility] May 26, 2024 11:00 AM AMBULATORY - MEDICINE [facility] [place] [facility] May 31, 2024 01:00 PM AMBULATORY - MEDICINE [facility] [place] [facility] Jun 06, 2024 01:00 PM AMBULATORY - MEDICINE [facility] [place] [facility] Jun 13, 2024 01:00 PM AMBULATORY - MEDICINE [facility] [place] [facility] Jun 14, 2024 11:00 AM AMBULATORY - MEDICINE [facility] [place] [facility] Jun 20, 2024 11:00 AM AMBULATORY - PSYCHIATRY [facility] [place] [facility] Jun 20, 2024 01:00 PM AMBULATORY - MEDICINE [facility] [place] [facility] Jun 27, 2024 01:00 PM AMBULATORY - MEDICINE [facility] [place] [facility] Jul 04, 2024 01:00 PM AMBULATORY - MEDICINE [facility] [place] [facility] Jul 05, 2024 01:00 PM AMBULATORY - MEDICINE [facility] [place] [facility] Jul 10, 2024 08:30 AM AMBULATORY - MEDICINE [facility] [place] [facility] Jul 11, 2024 03:00 PM AMBULATORY - PSYCHIATRY [facility] [place] [facility] Jul 31, 2024 10:30 AM AMBULATORY - NONE [facility] [place] [facility] Aug 01, 2024 08:45 AM AMBULATORY - MEDICINE [place] [facility] [place] [facility] Aug 01, 2024 09:00 AM AMBULATORY - MEDICINE [place] [facility] [place] [facility] Aug 01, 2024 01:00 PM AMBULATORY - MEDICINE [place] [facility] [place] [facility] Aug 08, 2024 01:00 PM [facility]BULATORY - [facility]IC[facility] Aug 09, 2024 10:30 AM [facility] Active, Pending, and Scheduled Orders This section includes a listing of several types of active, pending, and scheduled orders, including clinic medications orders, diagnostic test orders, procedure orders and consult orders; where the start date of the order is 45 days before the date of the Encounter or 45 days after the date of theEncounter. The data comes from all [place] treatment facilities. Test Date/Time Test Type Test Details Facility Name Mar 29, 2024 09:37 AM Consult Order COMMUNITY CARE-COLONOSCOPY SURVEILLANCE Cons Toll Line Repairer's [facility] Jun 01, 2024 08:16 AM Consult Order PSYCHOTHER APY BHIP/NHM OUTPT Cons Toll Line Repairer's Choice [facility] Social History: Smoking Status (Most [...] 04, 2021 02:56 PM VA-TOBACCO NEVER USED [facility] Encounter Notes: All associated encounter notes This section contains the clinical notes associated to the Encounter. Date/Time Encounter Note(s) Provider Source May 11, 2024 08:25 AM SECURE MESSAGING: LOCAL TITLE: PAIN MANAGEMENT SECURE MESSAGING STANDARD TITLE: SECURE MESSAGING DATE OF NOTE: MAY 11, 2024@08:25 ENTRY DATE: MAY 11, 2024@08:25:57 AUTHOR: EUSEBIA LAWTON EXP COSIGNER: URGENCY: STATUS: COMPLETED ------Original Message ------- Sent: 05/11/2024 08:25 AM ET From: EUSEBIA LAWTON To: STAR DOUGHERTY Subject: Education:Gentle seated exercise video [facility], I wanted to follow-up by sending you a gentle, seated exercise video for you to try this week as part of your home practice. Stay within your comfort level, relax your shoulders, and remember to breathe. [email or web address] Take careRachna PT, DPT Physical Therapist /es/ EUSEBIA LAWTON DPT PHYSICAL THERAPIST Signed: 05/11/2024 08:25 EUSEBIA LAWTON [facility] [place] [facility]
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
--- OUTSIDE RECORDS SUMMARY | 2024-07-31 10:40 | XMS_ITS ---
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 Date/Time Encounter Type Encounter Description Reason Provider Source May 02, 2024 02:00 PM OFF/OP EST MAY X REQ PHY/QHP PRIMARY CARE/MEDICINE ICD-10-CM Z23 Encounter for immunization PRAVEENA DALTON IHE Encounter Template Text not used by [place] Assessments - Encounter Diagnoses This section includes the primary and secondary diagnoses documented for the Encounter. Date/Time Primary/Secondary Diagnosis Diagnosis Name Provider Source May 02, 2024 02:18 PM PRIMARY Encounter for immunization PRAVEENA DALTON [place] [facility] [place] [facility] Plan of Treatment: Future Appointments (+ 6 months) and Future Tests (+/- 45 days) The Plan of Treatment section includes future care activities for the patient from all [place] treatmentfaaffinity health partnersities. This section includes future appointments and future orders which are active, pending or scheduled. Future Appointments This section includes appointments that were scheduled to occur 6 months from the date of the Encounter, up to a maximum of 20 appointments. The data comes from all [place] treatment facilities. Appointment Date/Time Appointment Type Appointme nt Facility Name May 03, 2024 03:00 PM AMBULATORY - MEDICINE [place] [facility] [place] [facility] May 10, 2024 03:45 PM AMBULATORY - MEDICINE [facility] [place] [facility] May 17, 2024 01:45 PM AMBULATORY - MEDICINE [facility] [place] [facility] May 22, 2024 10:30 AM AMBULATORY - PSYCHIATRY [facility] [place] [facility] May 26, 2024 11:00 AM AMBULATORY - MEDICINE [place] [facility] [place] [facility] May 31, 2024 01:00 PM AMBULATORY - MEDICINE [place] [facility] [place] [facility] Jun 06, 2024 01:00 PM AMBULATORY - MEDICINE [place] [facility] [place] [facility] Jun 13, 2024 01:00 PM AMBULATORY - MEDICINE [place] [facility] [place] [facility] Jun 14, 2024 11:00 AM AMBULATORY - MEDICINE [facility] [place] [facility] Jun 20, 2024 11:00 AM AMBULATORY - PSYCHIATRY [facility] [place] [facility] Jun 20, 2024 01:00 PM AMBULATORY - MEDICINE [place] [facility] [place] [facility] Jun 27, 2024 01:00 PM AMBULATORY - MEDICINE [facility] [place] [facility] Jul 04, 2024 01:00 PM AMBULATORY - MEDICINE [facility] [place] [facility] Jul 05, 2024 01:00 PM AMBULATORY - MEDICINE [facility] [place] [facility] Jul 10, 2024 08:30 AM AMBULATORY - MEDICINE [facility] [place] [facility] Jul 11, 2024 03:00 PM AMBULATORY - PSYCHIATRY [facility] [place] [facility] Jul 31, 2024 10:30 AM AMBULATORY - NONE [facility] [place] [facility] Aug 01, 2024 08:45 AM AMBULATORY - MEDICINE [place] [facility] [place] [facility] Aug 01, 2024 09:00 AM AMBULATORY - MEDICINE [place] [facility] [place] [facility] Aug 01, 2024 01:00 PM AMBULATORY - MEDICINE [place] [facility] [place] [facility] Active, Pending, and Scheduled Orders This section includes a listing of several types of active, pending, and scheduled orders, including clinic medications orders, diagnostic test orders, procedure orders and consult orders; where the start date of the order is 45 days before the date of the Encounter or 45 days after the date of theEncounter. The data comes from all [place] treatment facilities. Test Date/Time Test Type Test Details Facility Name Mar 29, 2024 09:37 AM Consult Order COMMUNITY CARE-COLONOSCOPY SURVEILLANCE Cons Breaker Machine Operator's Choice [place] [facility] [place] [facility] Jun 01, 2024 08:16 AM Consult Order PSYCHOTHER APY BHIP/NHM OUTPT [facility] Breaker Machine Operator's Choice [facility] Lab Results: +/- 30 days of [...] Range Comment Apr 05, 2024 09:14 AM [facility] LIPID PANEL FASTING Specimen Type: SERUM No comment entered. Ordering Provider: MELBA DOE Report Released Date/Time: Mar 29, 2024 09:37 AM Reporting Lab: [facility] [address] [facility] [address] Performing Lab: [facility] [address] [facility] [address] CHOLESTEROL 167 mg/dL TRIGLYCERIDE 231 mg/dL H 0-150 LDL calculated 80 mg/dL 0-129 CHOL/HDL 4.1 HDL CHOLESTEROL 41 mg/dL 40-60 Apr 05, 2024 09:14 AM [facility] VITAMIN B12 Specimen Type: SERUM No comment entered. Ordering Provider: MELBA DOE Report Released Date/Time: Mar 29, 2024 09:37 AM Reporting Lab: [facility] [address] [facility] [address] Performing Lab: [facility] [address] [facility] [address] VITAMIN B12 500 pg/mL 200-900 Apr 05, 2024 09:14 AM [facility] BASIC METABOLIC PANEL (fasting) Specimen Type: SERUM No comment entered. Ordering Provider: MELBA DOE Report Released Date/Time: Mar 29, 2024 09:37 AM Reporting Lab: [facility] [address] [facility] [address] Performing Lab: [facility] [address] [facility] [address] UREA NITROGEN 22 mg/dL 7-25 GLUCOSE 128 mg/dL H 65-100 SODIUM 140 mmol/L 135-145 POTASSIUM 4.2 mmol/L 3.5-5.0 CHLORIDE 103 mmol/L 100-110 CO2 26 meq/L 20-30 CREATININE, Serum 1.02 mg/dL 0.50-1.40 eGFR(CKD-EPI 2020) 80 mL/min >60 Apr 05, 2024 09:14 AM [facility] TSH Specimen Type: SERUM No comment entered. Ordering Provider: MELBA DOE Report Released Date/Time: Mar 29, 2024 09:37 AM Reporting Lab: [facility] [address] [facility] [address] Performing Lab: [facility] [address] [facility] [address] TSH 1.38 u[IU]/mL 0.35-5.00 Apr 05, 2024 09:14 AM [facility] CBC Specimen Type: BLOOD No comment entered. Ordering Provider: MELBA DOE Report Released Date/Time: Mar 29, 2024 09:37 AM Reporting Lab: [facility] [address] [facility] [address] Performing Lab: [facility] [address] [facility] [address] WBC 6.54 10*3/uL 4.50-11.00 RBC 4.83 10*6/uL 4.23-5.66 HGB 15.2 g/dL 12.8-17 HCT 44.4 39.2-50.4 MCV 91.9 fL 82-99 MCHC 34.2 g/dL 30.8-35.1 PLT 220 10*3/uL 140-360 RDW-CV 12.3 12.0-16.0 MCH 31.5 pg 26.2-32.6 Immunizations: All administered on the encounter date This section contains immunizations associated to the Encounter. Immunization Series Date Issued Reaction Comments COVID-19 (MODERNA), MRNA, LN P-S, PF, 50 MCG/0.5 ML (AGES 12+ YEARS) May 02, 2024 Social History: Smoking Status (Most current) and [...] 04, 2021 02:56 PM [facility]-TOBACCO [facility] USED [facility] Encounter Notes: All associated encounter notes This section contains the clinical notes associated to the Encounter. 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 Lot: [id number] Exp Date: Dec 30, 2024 ND: [id number] Admin Route/Site: INTRAMUSCULAR/LEFT DELTOID Dosage: 0.5mL Vaccine Information Statement(s): COVID-19 MRNA VACCINE (12+ YRS) VACCINE VIS May 13, 2023 (AZERI) Order By: Policy Administered By: Praveena Dalton Vaccine administered without complications. /monisha/ Praveena Dalton RN, BSN Primary Care Nurse Commercial Maintenance Technician Signed: 05/02/2024 14:18 PRAVEENA DALTON [facility]
--- OUTSIDE RECORDS SUMMARY | 2024-07-31 10:40 | XMS_ITS | Encounter Summary ---
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 Date/Time Encounter Type Encounter Description Reason Provider Source May 03, 2024 03:00 PM THERAPEUTIC EXERCISES PAIN CLINIC ICD-10-CM M54.59 Other low back pain EUSEBIA LAWTON Carlin Encounter Template Text not used by [place] Assessments - Encounter Diagnoses This section includes the primary and secondary diagnoses documented for the Encounter. Date/Time Primary/Secondary Diagnosis Diagnosis Name Provider Source May 03, 2024 03:12 PM PRIMARY Other low back pain EUSEBIA LAWTON [place] [facility] Plan of Treatment: Future Appointments (+ 6 months) and Future Tests (+/- 45 days) The Plan of Treatment section includes future care activities for the patient from all [place] [facility]. This section includes future appointments and future orders which are active, pending or scheduled. Future Appointments This section includes appointments that were scheduled to occur 6 months from the date of the Encounter, up to a maximum of 20 appointments. The data comes from all [place] treatment facilities. Appointment Date/Time Appointment Type Appointme nt Facility Name May 10, 2024 03:45 PM AMBULATORY - MEDICINE [place] [facility] May 17, 2024 01:45 PM AMBULATORY - MEDICINE [place] [facility] May 22, 2024 10:30 AM AMBULATORY - PSYCHIATRY [place] [facility] [place] May 26, 2024 11:00 AM AMBULATORY - MEDICINE [place] [facility] [place] May 31, 2024 01:00 PM AMBULATORY - MEDICINE [place] [facility] Jun 06, 2024 01:00 PM AMBULATORY - MEDICINE [place] [facility] Jun 13, 2024 01:00 PM AMBULATORY - MEDICINE [place] [facility] Jun 14, 2024 11:00 AM AMBULATORY - MEDICINE [place] [facility] Jun 20, 2024 11:00 AM AMBULATORY - PSYCHIATRY [place] [facility] Jun 20, 2024 01:00 PM AMBULATORY - MEDICINE [place] [facility] Jun 27, 2024 01:00 PM AMBULATORY - MEDICINE [place] [facility] Jul 04, 2024 01:00 PM AMBULATORY - MEDICINE [place] [facility] Jul 05, 2024 01:00 PM AMBULATORY - MEDICINE [place] [facility] Jul 10, 2024 08:30 AM AMBULATORY - MEDICINE [place] [facility] Jul 11, 2024 03:00 PM AMBULATORY - PSYCHIATRY [facility] Jul 31, 2024 10:30 AM [facility] Aug 01, 2024 08:45 AM AMBULATORY - MEDICINE [place] [facility] Aug 01, 2024 09:00 AM AMBULATORY - MEDICINE [place] [facility] Aug 01, 2024 01:00 PM [facility] Aug 08, 2024 01:00 PM [facility]UL[facility] [place] [facility] Active, Pending, and Scheduled Orders This [...] AM Consult Order COMMUNITY CARE-COLONOSCOPY SURVEILLANCE Cons Light Industrial Supervisor's Choice [facility] Jun 01, 2024 08:16 AM Consult Order PSYCHOTHER APY BHIP/NHM OUTPT [facility] Light Industrial Supervisor's Choice [facility] Lab Results: +/- 30 days of [...] Range Comment Apr 05, 2024 09:14 AM [facility] LIPID PANEL FASTING Specimen Type: SERUM No comment entered. Ordering Provider: MELBA DOE Report Released Date/Time: Mar 29, 2024 09:37 AM Reporting Lab: [facility] [address] [place] [address] Performing Lab: [facility] [address] [facility] [address] CHOLESTEROL 167 mg/dL TRIGLYCERIDE 231 mg/dL H 0-150 LDL calculated 80 mg/dL 0-129 CHOL/HDL 4.1 HDL CHOLESTEROL 41 mg/dL 40-60 Apr 05, 2024 09:14 AM [facility] BASIC METABOLIC PANEL (fasting) Specimen Type: SERUM No comment entered. Ordering Provider: MELBA DOE Report Released Date/Time: Mar 29, 2024 09:37 AM Reporting Lab: [address] [address] Performing Lab: [address] [address] UREA NITROGEN 22 mg/dL 7-25 GLUCOSE 128 mg/dL H 65-100 SODIUM 140 mmol/L 135-145 POTASSIUM 4.2 mmol/L 3.5-5.0 CHLORIDE 103 mmol/L 100-110 CO2 26 meq/L 20-30 CREATININE, Serum 1.02 mg/dL 0.50-1.40 eGFR(CKD-EPI 2020) 80 mL/min >60 Apr 05, 2024 09:14 AM [facility] VITAMIN B12 Specimen Type: SERUM No comment entered. Ordering Provider: MELBA DOE Report Released Date/Time: Mar 29, 2024 09:37 AM Reporting Lab: [address] [address] Performing Lab: [address] [address] VITAMIN B12 500 pg/mL 200-900 Apr 05, 2024 09:14 AM [facility] TSH Specimen Type: SERUM No comment entered. Ordering Provider: MELBA DOE Report Released Date/Time: Mar 29, 2024 09:37 AM Reporting Lab: [facility] [address] [facility] [address] Performing Lab: [address] [address] TSH 1.38 u[IU]/mL 0.35-5.00 Apr 05, 2024 09:14 AM [facility] CBC Specimen Type: BLOOD No comment entered. Ordering Provider: MELBA DOE Report Released Date/Time: Mar 29, 2024 09:37 AM Reporting Lab: [facility] [address] [facility] [address] Performing Lab: [facility] [address] [facility] [address] WBC 6.54 10*3/uL 4.50-11.00 RBC 4.83 10*6/uL [...] 04, 2021 02:56 PM VA-TOBACCO NEVER USED [facility] Encounter Notes: All associated encounter notes This section contains the clinical notes associated to the Encounter. Date/Time Encounter Note(s) Provider Source May 03, 2024 03:01 PM PHYSICAL THERAPY N OTE: LOCAL TITLE: PHYSICAL THERAPY STANDARD TITLE: PHYSICAL THERAPY NOTE DATE OF NOTE: MAY 03, 2024@15:01 ENTRY DATE: MAY 03, 2024@15:01:51 AUTHOR: EUSEBIA LAWTON EXP COSIGNER: URGENCY: STATUS: COMPLETED Initial Evaluation date: 02/10/2024 Treatment #: 8 Treatment time: 45 Diagnosis: Other low back [...] surgical precautions etc.) SUBJECTIVE: Ed reports he had acupuncture yesterday, finds this beneficial. 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 He spent about 5 minutes outdoors. Response from previous session: tolerated well, denies increase in pain Pain, verbal numeric scale 0-10: 5/10 -- left side of his body HEP Adherence: Doing his HEP daily before 11am - using handouts. OBJECTIVE: THERAPEUTIC EXERCISE: MINUTES: 40 NuStep, 88SPM, L1, 0.28 miles, 8:30 minutes Hip hike from step, straight leg, x20 reps -visual, verbal, and tactile cues Posture corrections at wall --cues to increase upright, chin retraction, relax shoulders --cues breathing Standing pelvic tilts against wall - A/P --poor motor control --added towel and cues for additional feedback --difficulty dissociating low back/pelvis Seated torso circles on disc Trial of seated lumbar flexion -- limited due to discomfort, discontinued Seated open book with cues to encourage upper quarter & neck rotation --both sides, left more limited MANUAL THERAPY: MINUTES: GAIT TRAINING: MINUTES: NEUROMUSCULAR EDUCATION: MINUTES: OTHER: MINUTES: MODALITIES: MINUTES: [x] Contraindication screen completed prior to modality [x] Skin intact pre/post SELF CARE/EDUCATION: MINUTES: 5 Continue with HEP, Access Code: [email or web address]. Encouraged use of CALM chele and/or Alpha-Stim daily PNE: normalizing joint noise, reassurance; motion is lotion ED/TRAIN SELF-MGMT NONPHY MINUTES: ASSESSMENT: Ed p/w fair tolerance to session, no c/o increased pain. Provided visual, verbal, and tactile cue to continue to work on lumbopelvic dissociation and motor control. PLAN: Continue with plan of care, 1-2x/wk as tolerated. Interventions to include: Manual therapy (PRN): stm, MET's, myofascial release Aerobic exercise: Nustep, graded activity Therex: LB and LE flexibility, gentle progressive core, diaphragmatic breathing Education: PNE, posture, ergo, bodymechanics, relaxation techniques, graded activity for aerobic exercise Update Sensegon HEP as indicated [Access Code: [email or web address]] Patient education was provided for all aspects of care during this clinical encounter. /monisha/ EUSEBIA LAWTON DPT PHYSICAL THERAPIST Signed: 05/03/2024 17:07 EUSEBIA LAWTON CNTRL [facility]
--- OUTSIDE RECORDS SUMMARY | 2024-07-31 10:40 | XMS_ITS | Encounter Summary ---
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 Date/Time Encounter Type Encounter Description Reason Provider Source May 11, 2024 08:25 AM Outpatient Encounter EVENT (HISTORICAL) EUSEBIA LAWTON JOANNACarlin Encounter Template Text not used by [place] Plan of Treatment: Future Appointments (+ 6 months) and Future Tests (+/- 45 days) The Plan of Treatment section includes future care activities for the patient from all [place] [facility]. This section includes future appointments and [...] - MEDICINE [place] [facility] [place] [facility] May 22, 2024 10:30 AM AMBULATORY - PSYCHIATRY [facility] [place] [facility] May 26, 2024 11:00 AM AMBULATORY - MEDICINE [facility] [place] [facility] May 31, 2024 01:00 PM AMBULATORY - MEDICINE [facility] [place] [facility] Jun 06, 2024 01:00 PM AMBULATORY - MEDICINE [facility] [place] [facility] Jun 13, 2024 01:00 PM AMBULATORY - MEDICINE [facility] [place] [facility] Jun 14, 2024 11:00 AM AMBULATORY - MEDICINE [facility] [place] [facility] Jun 20, 2024 11:00 AM AMBULATORY - PSYCHIATRY [facility] [place] [facility] Jun 20, 2024 01:00 PM AMBULATORY - MEDICINE [facility] [place] [facility] Jun 27, 2024 01:00 PM AMBULATORY - MEDICINE [facility] [place] [facility] Jul 04, 2024 01:00 PM AMBULATORY - MEDICINE [facility] [place] [facility] Jul 05, 2024 01:00 PM AMBULATORY - MEDICINE [facility] [place] [facility] Jul 10, 2024 08:30 AM AMBULATORY - MEDICINE [facility] [place] [facility] Jul 11, 2024 03:00 PM AMBULATORY - PSYCHIATRY [facility] [place] [facility] Jul 31, 2024 10:30 AM AMBULATORY - NONE [facility] [place] [facility] Aug 01, 2024 08:45 AM AMBULATORY - MEDICINE [place] C [facility] [place] [facility] Aug 01, 2024 09:00 AM AMBULATORY - MEDICINE [place] C [facility] [place] [facility] Aug 01, 2024 01:00 PM AMBULATORY - MEDICINE [place] C [facility] [place] [facility] Aug 08, 2024 01:00 PM [facility]BULATORY - [facility] Aug 09, 2024 10:30 AM [facility] Active, Pending, and Scheduled Orders [...] AM Consult Order COMMUNITY CARE-COLONOSCOPY SURVEILLANCE Cons Deburring And Tooling Machine Operator's Choice [facility] Jun 01, 2024 08:16 AM Consult Order PSYCHOTHER APY BHIP/NHM OUTPT Cons Deburring And Tooling Machine Operator's Choice [facility] Social History: Smoking Status (Most [...] 04, 2021 02:56 PM VA-TOBACCO NEVER USED [facility]
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
--- OUTSIDE RECORDS SUMMARY | 2024-07-31 10:41 | XMS_ITS | Encounter Summary ---
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 Date/Time Encounter Type Encounter Description Reason Pro vider Source Nov 22, 2023 10:39 AM Outpatient Encounter PAIN CLINIC IHE Encounter Template Text not used by NH Plan of Treatment: Future Appointments (+ 6 months) and Future Tests (+/- 45 days) The Plan of Treatment section includes future care activities for the patient [facility] [place] [facility] [place] This section includes future appointments and future [...] - MEDICINE [facility] [place] [facility] December 06, 2023 09:30 AM AMBULATORY - MEDICINE [facility] [place] [facility] December 09, 2023 01:30 PM AMBULATORY - MEDICINE [facility] [place] [facility] December 09, 2023 03:00 PM AMBULATORY - MEDICINE [facility] [place] [facility] December 14, 2023 10:30 AM AMBULATORY - MEDICINE [facility] [place] [facility] December 14, 2023 01:00 PM AMBULATORY - MEDICINE [facility] [place] [facility] December 16, 2023 08:30 AM AMBULATORY - MEDICINE [facility] [place] [facility] Dec 28, 2023 11:00 AM AMBULATORY - MEDICINE [facility] [place] [facility] Dec 29, 2023 10:00 AM AMBULATORY - MEDICINE [facility] [place] [facility] Dec 29, 2023 11:00 AM AMBULATORY - MEDICINE [facility] [place] [facility] Jan 06, 2024 02:30 PM AMBULATORY - MEDICINE [facility] [place] [facility] Jan 06, 2024 03:45 PM AMBULATORY - MEDICINE [facility] [place] [facility] Jan 14, 2024 12:45 PM AMBULATORY - MEDICINE [facility] [place] [facility] Jan 18, 2024 08:00 AM AMBULATORY - MEDICINE [facility] [place] [facility] Jan 19, 2024 08:30 AM AMBULATORY - PSYCHIATRY [facility] [place] [facility] Jan 25, 2024 09:30 AM AMBULATORY - MEDICINE [facility] Feb 01, 2024 09:30 AM AMBULATORY - MEDICINE [facility] Feb 02, 2024 11:00 AM [facility] Feb 02, 2024 12:30 PM [facility] Feb 10, 2024 11:15 AM AMBULATORY - REHAB MEDICIN E [facility] Active, Pending, and Scheduled Orders This [...] Order LIPID PANEL FASTING BLOOD (SST-SERUM) [facility] Jan 06, 2024 12:00 AM Laboratory - Chemi stry Order OCCULT BLOOD FIT X1 SCREEN(IN-HOUSE) STOOL FECES SP [facility] Social History: Smoking Status (Most current) [...] 04, 2021 02:56 PM VA-TOBACCO NEVER USED [facility] Encounter Notes: All associated encounter notes This section contains the clinical notes associated to the Encounter. Date/Time Encounter Note(s) Provider Source November 24, 2023 04:56 PM ADDENDUM: LOCAL TITLE: Addendum STANDARD TITLE: ADDENDUM DATE OF NOTE: NOVEMBER 24, 2023@16:56:49 ENTRY DATE: NOVEMBER 24, 2023@16:56:50 AUTHOR: EUSEBIA LAWTON EXP COSIGNER: URGENCY: STATUS: COMPLETED PHQ-2 screen positive. Adding 's [facility] provider to this note for awareness. has a CC psychotherapy referral pending. /monisha/ EUSEBIA LAWTON DPT PHYSICAL THERAPIST Signed: 11/24/2023 17:00 Receipt Acknowledged By: 11/25/2023 10:52 /monisha/ YANCY MOY Psychiatric Mental Health Nurse Practitioner --- Original Document --- 11/24/23 PAIN CLINIC NOTE: Assessments were sent to the via text/email. These assessments were completed by STAR DOUGHERTY JR on their own device on 11/22/2023 10:39:58 AM. PATIENT HEALTH QUESTIONNAIRE-2 (PHQ-2) Patient reported being bothered by the following over the last 2 weeks: 1. Little interest or pleasure: Nearly every day 2. Feeling down, depressed or hopeless: More than half the days PHQ-2 score = 5 PHQ-2 result = POSITIVE PHQ-2 scores range from 0 to 6. The screening result is considered positive if the score >= 3. PHQ-2 Total Score (past 180 days): 11/22/2023 5 09/06/2023 1 05/31/2023 0 PHQ-2 Screen (past 180 days): 11/22/2023 true 09/06/2023 false 09/06/2023 False 05/31/2023 False PAIN, ENJOYMENT OF LIFE AND GENERAL ACTIVITY [...] - 10=Completely Interferes): 6 PEG Average Score: 6 Scores are an average of the 3 items and range from 0 to 10. Higher scores represent worse pain. PEG Avg. Pain Score (past 180 days): 11/22/2023 6 10/26/2023 5 09/06/2023 5 PAIN SELF EFFICACY QUESTIONNAIRE-2 (PSEQ-2) Patient's confidence rating on a scale from 0 (Not at all confident) to 6 (Completely confident) that the following can be done at present despite the pain: 1. Do some form of work: 6 2. Live a normal lifestyle: 3 PSEQ-2 Total Score: 9 Scores range from 0 to 12. Scores >= 8 reflect pain self-efficacy that is likely to be associated with meaningful functional outcomes. PSEQ-2 Score (past 180 days): 11/22/2023 9 09/06/2023 6 PATIENT-REPORTED OUTCOMES MEASUREMENT INFORMATION SYSTEM-29+2 PROFILE V2.1 (PROMIS 29+2 PROFILE V2.1) The patient responded to each question/statement as follows: Physical Function: 1. Are you able to do chores such as vacuuming or yard work: With a little difficulty 2. Are you able to go up and down stairs at a normal pace: With some difficulty 3. Are you able to go for a walk of at least 15 minutes: With some difficulty 4. Are you able to run errands and shop: With some difficulty Anxiety: In the past 7 days... 5. I felt fearful: Sometimes 6. I found it hard to focus on anything other than my anxiety: Often 7. My worries overwhelmed me: Often 8. I felt uneasy: Often Depression: In the past 7 days... 9. I felt worthless: Sometimes 10. I felt helpless: Sometimes 11. I felt depressed: Often 12. I felt hopeless: Sometimes Fatigue: During the past 7 days... 13. I feel fatigued: Quite a bit 14. I have trouble starting things because I am tired: A little bit 15. How run-down did you feel on average: Somewhat 16. How fatigued were you on average: Somewhat Sleep Disturbance: During the past 7 days... 17. My sleep quality was: Very poor 18. My sleep was refreshing: A little bit 19. I had a problem with my sleep: Very much 20. I had difficulty falling asleep: Quite a bit Ability to Participate in Social Roles and Activities: 21. I have trouble doing all of my regular leisure activities with others: Often 22. I have trouble doing all of the family activities that I want to do: Often 23. I have trouble doing all of my usual work (include work at home): Often 24. I have trouble doing all of the activities with friends that I want to do: Often Pain Interference: During the past 7 days... 25. How much did pain interfere with your day to day activities: Quite a bit 26. How much did pain interfere with work around the home: Somewhat 27. How much did pain interfere with your ability to participate in social activities: Quite a bit 28. 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 29. I have been able to concentrate: A little bit 30. I have been able to remember to do things, like take medicine or buy something I needed: Somewhat Pain Intensity: During the past 7 days... 31. How would you rate your pain on average: 5 Raw Score T-Score Std.Error Physical Function 13 37.9 2.3 Anxiety 15 69.3 2.7 Depression 13 63.9 2.3 Fatigue 12 57.0 2.3 Sleep Disturbance 18 66.0 3.4 Social Roles and Activities 8 37.3 2.1 Pain Interference 14 63.8 1.8 Cognitive Function 5 41.2 5.7 Pain Intensity 5 PROMIS-29 Physical Function Raw Summed Score (past 180 days): 11/22/2023 13 09/06/2023 12 PROMIS-29 Physical Function Standard T-Score (past 180 days): 11/22/2023 37.9 09/06/2023 36.7 PROMIS-29 Physical Function Standard Error (past 180 days): 11/22/2023 2.3 09/06/2023 2.3 PROMIS-29 Anxiety Summed Score (past 180 days): 11/22/2023 15 09/06/2023 11 PROMIS-29 Anxiety Standard T-Score (past 180 days): 11/22/2023 69.3 09/06/2023 61.4 PROMIS-29 Anxiety Standard Error (past 180 days): 11/22/2023 2.7 09/06/2023 2.6 PROMIS-29 Depression Summed Score (past 180 days): 11/22/2023 13 09/06/2023 7 PROMIS-29 Depression Standard T-Score (past 180 days): 11/22/2023 63.9 09/06/2023 53.9 PROMIS-29 Depression Standard Error (past 180 days): 11/22/2023 2.3 09/06/2023 2.4 PROMIS-29 Fatigue Summed Score (past 180 days): 11/22/2023 12 09/06/2023 14 PROMIS-29 Fatigue Standard T-Score (past 180 days): 11/22/2023 57 09/06/2023 60.7 PROMIS-29 Fatigue Standard Error (past 180 days): 11/22/2023 2.3 09/06/2023 2.3 PROMIS-29 Sleep Disturbance Summed Score (past 180 days): 11/22/2023 18 09/06/2023 17 PROMIS-29 Sleep Disturbance T-Score (past 180 days): 11/22/2023 66 09/06/2023 63.8 PROMIS-29 Sleep Disturbance Standard Error (past 180 days): 11/22/2023 3.4 09/06/2023 3.4 PROMIS-29 Social Summed Score (past 180 days): 11/22/2023 8 09/06/2023 10 PROMIS-29 Social T-Score (past 180 days): 11/22/2023 37.3 09/06/2023 40.5 PROMIS-29 Social Standard Error (past 180 days): 11/22/2023 2.1 09/06/2023 2.3 PROMIS-29 Pain Interference Summed Score (past 180 days): 11/22/2023 14 09/06/2023 14 PROMIS-29 Pain Interference T-Score (past 180 days): 11/22/2023 63.8 09/06/2023 63.8 PROMIS-29 Pain Interference Standard Error (past 180 days): 11/22/2023 1.8 09/06/2023 1.8 PROMIS-29 Cognitive Function Summed Score (past 180 days): 11/22/2023 5 09/06/2023 5 PROMIS-29 Cognitive Function T-Score (past 180 days): 11/22/2023 41.2 09/06/2023 41.2 PROMIS-29 Cognitive Function Standard Error (past 180 days): 11/22/2023 5.7 09/06/2023 5.7 PROMIS-29 Pain Intensity Summed Score (past 180 days): 11/22/2023 5 09/06/2023 5 09/06/2023 14 SLEEP QUALITY SCALE - 1 ITEM (SQS) During the past 7 days, how would you rate your sleep quality overall? 3 - Poor SQS Total score = 3 Scores range from 0 to 10, with higher scores indicating higher quality sleep. SQS Total Score (past 180 days): 11/22/2023 3 09/06/2023 3 SELF-RATED HEALTH-1 ITEM (SRH) In general, would you say your health is: Good SRH Total score = 3 Scores range from 1 to 5, with higher scores indicating worse perceived health. SRH Total Score (past 180 days): 11/22/2023 3 09/06/2023 3 UW CONCERNS ABOUT PAIN-2 ITEM (UW-CAP-2) In the past 7 days... How often did you have the thought: my pain is more than I can manage: Rarely How often did you think about how much it hurts: Sometimes UW-CAP-2 Total Score (2-10) = 5 UW-CAP-2 T-score (0-100) = 49.2 Higher scores indicate higher worry about pain. UW-CAP-2 Total Score (past 180 days): 11/22/2023 5 09/06/2023 6 UW-CAP-2 T-score (past 180 days): 11/22/2023 49.2 09/06/2023 53.4 GENERALIZED ANXIETY DISORDER-2 ITEM (GHULAM-2) Over the last 2 weeks, how often have you been bothered by the following problems? Feeling nervous, anxious or on edge: Nearly every day Not being able to stop or control worrying: Nearly every day GHULAM-2 Total score = 6 Scores range from 0 to 6, with higher scores indicating higher levels of anxiety. GHULAM-2 Total Score (past 180 days): 11/22/2023 6 09/06/2023 4 /monisha/ EUSEBIA LAWTON DPT PHYSICAL THERAPIST Signed: 11/24/2023 16:54 EUSEBIA LAWTON [facility] [place] [facility] November 24, 2023 07:14 AM PAIN MEDICINE OUTP ATIENT NOTE: LOCAL TITLE: PAIN CLINIC NOTE STANDARD TITLE: PAIN MEDICINE OUTPATIENT NOTE DATE OF NOTE: NOVEMBER 24, 2023@07:14:47 ENTRY DATE: NOVEMBER 24, 2023@07:14:48 AUTHOR: LEIGHANNEUSEBIA EXP COSIGNER: URGENCY: STATUS: COMPLETED PAIN CLINIC NOTE Has ADDENDA Assessments were sent to the via text/email. These assessments were completed by STAR DOUGHERTY JR on their own device on 11/22/2023 10:39:58 AM. PATIENT HEALTH QUESTIONNAIRE-2 (PHQ-2) Patient reported being bothered by the following over the last 2 weeks: 1. Little interest or pleasure: Nearly every day 2. Feeling down, depressed or hopeless: More than half the days PHQ-2 score = 5 PHQ-2 result = POSITIVE PHQ-2 scores range from 0 to 6. The screening result is considered positive if the score >= 3. PHQ-2 Total Score (past 180 days): 11/22/2023 5 09/06/2023 1 05/31/2023 0 PHQ-2 Screen (past 180 days): 11/22/2023 true 09/06/2023 false 09/06/2023 False 05/31/2023 False PAIN, ENJOYMENT OF LIFE AND GENERAL ACTIVITY [...] - 10=Completely Interferes): 6 PEG Average Score: 6 Scores are an average of the 3 items and range from 0 to 10. Higher scores represent worse pain. PEG Avg. Pain Score (past 180 days): 11/22/2023 6 10/26/2023 5 09/06/2023 5 PAIN SELF EFFICACY QUESTIONNAIRE-2 (PSEQ-2) Patient's confidence rating on a scale from 0 (Not at all confident) to 6 (Completely confident) that the following can be done at present despite the pain: 1. Do some form of work: 6 2. Live a normal lifestyle: 3 PSEQ-2 Total Score: 9 Scores range from 0 to 12. Scores >= 8 reflect pain self-efficacy that is likely to be associated with meaningful functional outcomes. PSEQ-2 Score (past 180 days): 11/22/2023 9 09/06/2023 6 PATIENT-REPORTED OUTCOMES MEASUREMENT INFORMATION SYSTEM-29+2 PROFILE V2.1 (PROMIS 29+2 PROFILE V2.1) The patient responded to each question/statement as follows: Physical Function: 1. Are you able to do chores such as vacuuming or yard work: With a little difficulty 2. Are you able to go up and down stairs at a normal pace: With some difficulty 3. Are you able to go for a walk of at least 15 minutes: With some difficulty 4. Are you able to run errands and shop: With some difficulty Anxiety: In the past 7 days... 5. I felt fearful: Sometimes 6. I found it hard to focus on anything other than my anxiety: Often 7. My worries overwhelmed me: Often 8. I felt uneasy: Often Depression: In the past 7 days... 9. I felt worthless: Sometimes 10. I felt helpless: Sometimes 11. I felt depressed: Often 12. I felt hopeless: Sometimes Fatigue: During the past 7 days... 13. I feel fatigued: Quite a bit 14. I have trouble starting things because I am tired: A little bit 15. How run-down did you feel on average: Somewhat 16. How fatigued were you on average: Somewhat Sleep Disturbance: During the past 7 days... 17. My sleep quality was: Very poor 18. My sleep was refreshing: A little bit 19. I had a problem with my sleep: Very much 20. I had difficulty falling asleep: Quite a bit Ability to Participate in Social Roles and Activities: 21. I have trouble doing all of my regular leisure activities with others: Often 22. I have trouble doing all of the family activities that I want to do: Often 23. I have trouble doing all of my usual work (include work at home): Often 24. I have trouble doing all of the activities with friends that I want to do: Often Pain Interference: During the past 7 days... 25. How much did pain interfere with your day to day activities: Quite a bit 26. How much did pain interfere with work around the home: Somewhat 27. How much did pain interfere with your ability to participate in social activities: Quite a bit 28. 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 29. I have been able to concentrate: A little bit 30. I have been able to remember to do things, like take medicine or buy something I needed: Somewhat Pain Intensity: During the past 7 days... 31. How would you rate your pain on average: 5 Raw Score T-Score Std.Error Physical Function 13 37.9 2.3 Anxiety 15 69.3 2.7 Depression 13 63.9 2.3 Fatigue 12 57.0 2.3 Sleep Disturbance 18 66.0 3.4 Social Roles and Activities 8 37.3 2.1 Pain Interference 14 63.8 1.8 Cognitive Function 5 41.2 5.7 Pain Intensity 5 PROMIS-29 Physical Function Raw Summed Score (past 180 days): 11/22/2023 13 09/06/2023 12 PROMIS-29 Physical Function Standard T-Score (past 180 days): 11/22/2023 37.9 09/06/2023 36.7 PROMIS-29 Physical Function Standard Error (past 180 days): 11/22/2023 2.3 09/06/2023 2.3 PROMIS-29 Anxiety Summed Score (past 180 days): 11/22/2023 15 09/06/2023 11 PROMIS-29 Anxiety Standard T-Score (past 180 days): 11/22/2023 69.3 09/06/2023 61.4 PROMIS-29 Anxiety Standard Error (past 180 days): 11/22/2023 2.7 09/06/2023 2.6 PROMIS-29 Depression Summed Score (past 180 days): 11/22/2023 13 09/06/2023 7 PROMIS-29 Depression Standard T-Score (past 180 days): 11/22/2023 63.9 09/06/2023 53.9 PROMIS-29 Depression Standard Error (past 180 days): 11/22/2023 2.3 09/06/2023 2.4 PROMIS-29 Fatigue Summed Score (past 180 days): 11/22/2023 12 09/06/2023 14 PROMIS-29 Fatigue Standard T-Score (past 180 days): 11/22/2023 57 09/06/2023 60.7 PROMIS-29 Fatigue Standard Error (past 180 days): 11/22/2023 2.3 09/06/2023 2.3 PROMIS-29 Sleep Disturbance Summed Score (past 180 days): 11/22/2023 18 09/06/2023 17 PROMIS-29 Sleep Disturbance T-Score (past 180 days): 11/22/2023 66 09/06/2023 63.8 PROMIS-29 Sleep Disturbance Standard Error (past 180 days): 11/22/2023 3.4 09/06/2023 3.4 PROMIS-29 Social Summed Score (past 180 days): 11/22/2023 8 09/06/2023 10 PROMIS-29 Social T-Score (past 180 days): 11/22/2023 37.3 09/06/2023 40.5 PROMIS-29 Social Standard Error (past 180 days): 11/22/2023 2.1 09/06/2023 2.3 PROMIS-29 Pain Interference Summed Score (past 180 days): 11/22/2023 14 09/06/2023 14 PROMIS-29 Pain Interference T-Score (past 180 days): 11/22/2023 63.8 09/06/2023 63.8 PROMIS-29 Pain Interference Standard Error (past 180 days): 11/22/2023 1.8 09/06/2023 1.8 PROMIS-29 Cognitive Function Summed Score (past 180 days): 11/22/2023 5 09/06/2023 5 PROMIS-29 Cognitive Function T-Score (past 180 days): 11/22/2023 41.2 09/06/2023 41.2 PROMIS-29 Cognitive Function Standard Error (past 180 days): 11/22/2023 5.7 09/06/2023 5.7 PROMIS-29 Pain Intensity Summed Score (past 180 days): 11/22/2023 5 09/06/2023 5 09/06/2023 14 SLEEP QUALITY SCALE - 1 ITEM (SQS) During the past 7 days, how would you rate your sleep quality overall? 3 - Poor SQS Total score = 3 Scores range from 0 to 10, with higher scores indicating higher quality sleep. SQS Total Score (past 180 days): 11/22/2023 3 09/06/2023 3 SELF-RATED HEALTH-1 ITEM (SRH) In general, would you say your health is: Good SRH Total score = 3 Scores range from 1 to 5, with higher scores indicating worse perceived health. SRH Total Score (past 180 days): 11/22/2023 3 09/06/2023 3 UW CONCERNS ABOUT PAIN-2 ITEM (UW-CAP-2) In the past 7 days... How often did you have the thought: my pain is more than I can manage: Rarely How often did you think about how much it hurts: Sometimes UW-CAP-2 Total Score (2-10) = 5 UW-CAP-2 T-score (0-100) = 49.2 Higher scores indicate higher worry about pain. UW-CAP-2 Total Score (past 180 days): 11/22/2023 5 09/06/2023 6 UW-CAP-2 T-score (past 180 days): 11/22/2023 49.2 09/06/2023 53.4 GENERALIZED ANXIETY DISORDER-2 ITEM (GHULAM-2) Over the last 2 weeks, how often have you been bothered by the following problems? Feeling nervous, anxious or on edge: Nearly every day Not being able to stop or control worrying: Nearly every day GHULAM-2 Total score = 6 Scores range from 0 to 6, with higher scores indicating higher levels of anxiety. GHULAM-2 Total Score (past 180 days): 11/22/2023 6 09/06/2023 4 /iram LAWTON DPT PHYSICAL THERAPIST Signed: 11/24/2023 16:54 11/24/2023 ADDENDUM STATUS: COMPLETED PHQ-2 screen positive. Adding [facility] provider to this note for awareness. [facility] has a CC psychotherapy referral pending. /iram LAWTON DPT PHYSICAL THERAPIST Signed: 11/24/2023 17:00 Receipt Acknowledged By: * AWAITING SIGNATURE * YANCY MOY,[facility]BIA [facility]
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
--- OUTSIDE RECORDS SUMMARY | 2024-07-31 10:41 | XMS_ITS | Encounter Summary ---
Author Name [facility] [place] Organization [place] Address [address] [place] [address] Care Team Providers Care Radio Engineering Teacher Name Role Phone MELBA DOE Primary [...] PART B Feb 24, 2020 PART B [id number] [phone] LADONNA COLEMANSTAR PATIENT MEDICARE (WNR) MEDICARE (M) PART A November 24, 2019 PART A [id number] STAR DOUGHERTY JR PATIENT OFFICE OF [facility]ION[facility] SPEECH LANGUAGE PATHOLOGIST NO-FAULT INSURANCE NO FAULT May 12, 2022 NO FAULT [id number] STAR DOUGHERTY JR PATIENT FOR LIFE TFL* Feb 24, 2020 [id number] [phone] STAR DOUGHERTY JR PATIENT [facility] (WNR) TRICA RE(WN R) Jul 26, 2017 (WNR) [id number] 14 ROSALES DOUGHERTY PATIENT Selected Encounter This section includes the information on record at [place] for the Encounter. Date/Time Encounter Type Encounter Description Reason Pro vider Source May 26, 2024 11:48 AM Outpatient Encounter [facility] Encounter Template Text not used by [place] Plan of Treatment: Future Appointments (+ 6 months) and Future Tests (+/- 45 days) The Plan of Treatment section includes future care activities for the patient from all [place] treatmentfacilities. This section includes future appointments and future orders which are active, pending or scheduled. Future Appointments This section includes appointments that were scheduled to occur 6 months from the date of the Encounter, up to a maximum of 20 appointments. The data comes from all [place] treatment facilities. Appointment Date/Time Appointment Type Appointme nt Facility Name May 31, 2024 01:00 PM AMBULATORY - MEDICINE [facility] [place] [facility] Jun 06, 2024 01:00 PM AMBULATORY - MEDICINE [facility] [place] [facility] Jun 13, 2024 01:00 PM AMBULATORY - MEDICINE [facility] [place] [facility] Jun 14, 2024 11:00 AM AMBULATORY - MEDICINE [facility] [place] [facility] Jun 20, 2024 11:00 AM AMBULATORY - PSYCHIATRY [facility] [place] [facility] Jun 20, 2024 01:00 PM AMBULATORY - MEDICINE [facility] [place] [facility] Jun 27, 2024 01:00 PM AMBULATORY - MEDICINE [facility] [place] [facility] Jul 04, 2024 01:00 PM AMBULATORY - MEDICINE [facility] [place] [facility] Jul 05, 2024 01:00 PM AMBULATORY - MEDICINE [facility] [place] [facility] Jul 10, 2024 08:30 AM AMBULATORY - MEDICINE [facility] [place] [facility] Jul 11, 2024 03:00 PM AMBULATORY - PSYCHIATRY [facility] [place] [facility] Jul 31, 2024 10:30 AM AMBULATORY - NONE [facility] [place] [facility] Aug 01, 2024 08:45 AM AMBULATORY - MEDICINE [facility] [place] [facility] Aug 01, 2024 09:00 AM AMBULATORY - MEDICINE [facility] [place] [facility] Aug 01, 2024 01:00 PM AMBULATORY - MEDICINE [facility] [place] [facility] Aug 08, 2024 01:00 PM [facility] Aug 09, 2024 10:30 AM [facility] Aug 15, 2024 10:00 AM [facility] Sep 14, 2024 11:30 AM AMBULATORY - MEDICINE [facility] Active, Pending, and Scheduled Orders This section includes a listing of several types of active, pending, and scheduled orders, including clinic medications orders, diagnostic test orders, procedure orders and consult orders; where the start date of the order is 45 days before the date of the Encounter or 45 days after the date of theEncounter. The data comes from all [place] treatment facilities. Test Date/Time Test Type Test Details Facility Name Jun 01, 2024 08:16 AM Consult Order PSYCHOTHER SHERRY SWANSON/MAGED OUTPT Cons Management Sme's Choice [facility] Social History: Smoking Status (Most current) [...] 04, 2021 02:56 PM VA-TOBACCO NEVER USED [facility] Encounter Notes: All associated encounter notes This section contains the clinical notes associated to the Encounter. Date/Time Encounter Note(s) Provider Source May 26, 2024 11:48 AM ADMINISTRATIVE NOT E: LOCAL TITLE: ADMINISTRATIVE NOTE STANDARD TITLE: ADMINISTRATIVE NOTE DATE OF NOTE: MAY 26, 2024@11:48 ENTRY DATE: MAY 26, 2024@11:48:28 AUTHOR: ALEXANDER DRAKE COSIGNER: URGENCY: STATUS: COMPLETED Provider notes, patient missed today's scheduled [facility] 11:00am Whole Health Coaching Session. Provider requesting [facility] to kindly call patient and offer an opportunity to reschedule appt: CWM/WO/VVC/Whole Health Head Worker. /es/ ALEXANDER DRAKE Whole Health Head Worker Signed: 05/26/2024 11:49 Receipt Acknowledged By: 05/26/2024 16:25 /es/ KUMAR UNGER PROPERTY CONDITION ASSESSOR 05/30/2024 12:16 /es/ Nabila Delatorre Supervisory FRANNY DRAKE,ALEXANDER CUEVAS [facility] ([id number])
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
--- OUTSIDE RECORDS SUMMARY | 2024-07-31 10:41 | XMS_ITS ---
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 Date/Time Encounter Type Encounter Description Reason Provider Source May 31, 2024 01:00 PM SELF CARE MNGMENT TRAINING PAIN CLINIC ICD-10-CM M54.59 Other low back pain EUSEBIA LAWTON [place] Encounter Template Text not used by [place] Assessments - Encounter Diagnoses This section includes the primary and secondary diagnoses documented for the Encounter. Date/Time Primary/Secondary Diagnosis Diagnosis Name Provider Source May 31, 2024 05:45 PM PRIMARY Other low back pain EUSEBIA LAWTON [place] [facility] [place] [facility] Plan of Treatment: Future Appointments (+ 6 months) and Future Tests (+/- 45 days) The Plan of Treatment section includes future care activities for the patient from all [place] [facility]. This section includes future appointments and [...] MEDICINE [facility] [place] [facility] Jun 13, 2024 01:00 PM AMBULATORY - MEDICINE [facility] [place] [facility] Jun 14, 2024 11:00 AM AMBULATORY - MEDICINE [facility] [place] [facility] Jun 20, 2024 11:00 AM AMBULATORY - PSYCHIATRY [facility] [place] [facility] Jun 20, 2024 01:00 PM AMBULATORY - MEDICINE [place] [facility] [place] [facility] Jun 27, 2024 01:00 PM AMBULATORY - MEDICINE [facility] [place] [facility] Jul 04, 2024 01:00 PM AMBULATORY - MEDICINE [facility] [place] [facility] Jul 05, 2024 01:00 PM AMBULATORY - MEDICINE [facility] [place] [facility] Jul 10, 2024 08:30 AM AMBULATORY - MEDICINE [facility] [place] [facility] Jul 11, 2024 03:00 PM AMBULATORY - PSYCHIATRY [facility] [place] [facility] Jul 31, 2024 10:30 AM AMBULATORY - NONE [facility] [place] [facility] Aug 01, 2024 08:45 AM AMBULATORY - MEDICINE [place] [facility] [place] [facility] Aug 01, 2024 09:00 AM AMBULATORY - MEDICINE [facility] [place] [facility] Aug 01, 2024 01:00 PM AMBULATORY - MEDICINE [facility] [place] [facility] Aug 08, 2024 01:00 PM AMBULATORY - MEDICINE [facility] [place] [place] [facility] Aug 09, 2024 10:30 AM AMBULATORY - PSYCHIATRY [place] [facility] [place] [facility] Aug 15, 2024 10:00 AM AMBULATORY - MEDICINE [facility] [place] [facility] Sep 14, 2024 11:30 AM AMBULATORY - MEDICINE [facility] Active, Pending, and Scheduled Orders This section includes a listing of several types of active, pending, and scheduled orders, including clinic medications orders, diagnostic test orders, procedure orders and consult orders; where the start date of the order is 45 days before the date of the Encounter or 45 days after the date of theEncounter. The data comes from all [place] treatment facilities. 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 Encounter Notes: All associated encounter notes This section contains the clinical notes associated to the Encounter. Date/Time Encounter Note(s) Provider Source May 31, 2024 12:38 PM PHYSICAL THERAPY N OTE: LOCAL TITLE: PHYSICAL THERAPY STANDARD TITLE: PHYSICAL THERAPY NOTE DATE OF NOTE: MAY 31, 2024@12:38 ENTRY DATE: MAY 31, 2024@12:38:36 AUTHOR: EUSEBIA LAWTON EXP COSIGNER: URGENCY: STATUS: COMPLETED Initial Evaluation date: 02/10/2024 Progress Note: 05/17/24 Treatment #: 11 Treatment time: 45 Diagnosis: Other low back pain(ICD-10-CM M54.59) Provider: Dr. Roth PT Treatment Precautions: Pt identified by full name and . Active problems - Computerized Problem List is the source for the followin. Exposure to potentially hazardous substance 2. Cervical radiculopathy 3. Tinnitus 4. Pain 5. Anxiety 6. Benign prostatic hyperplasia TREATMENT PRECAUTIONS OR DAILY INSTRUCTIONS: (Vitals, surgical precautions etc.) SUBJECTIVE: Not good. Reports his stress level has been elevated the past few weeks. Shares that he's been unable to do yardwork and this increases stress. Also reports significant stress with 's health and holidays coming up; his is verbalizing this may be her last. Asks to focus on his neck. Response from previous session: no c/o increased pain Pain, verbal numeric scale 0-10: 6-7/10 HEP Adherence: []None []1-2x/wk []3-4x/wk []5-6x/wk []Daily Used his stationary bike 3-4x/wk, x5 minutes He's been doing 1 exercise that he finds helpful OBJECTIVE: THERAPEUTIC EXERCISE: MINUTES: 30 Supine anterior chest stretch, cues DB'ing Supine neck retraction, iso 10s x 10 Supine neck rotation, cues DB'ing, tactile cues to limit SB Supine nodding, cues breathing and relaxing upper traps MANUAL THERAPY: MINUTES: GAIT TRAINING: MINUTES: NEUROMUSCULAR EDUCATION: MINUTES: OTHER: MINUTES: MODALITIES: MINUTES: 5 Moist heat, neck [x] Contraindication screen completed prior to modality [x] Skin intact pre/post SELF CARE/EDUCATION: MINUTES:10 PNE: review stress and pain response to reinforce awareness between increased stressors and increased pain Encouraged at least 10 min relaxation daily. HEP -- advised Vet to select at least 1 additional exercise this week to perform consistently; recumbent cycle 4x/wk. ED/TRAIN SELF-MGMT NONPHY MINUTES: ASSESSMENT: Ed c/o significant stress, increased muscle tension, and increased neck pain today. He repositioned his neck frequently throughout the session. Strong tendency to focus on tissue issues, needs reminders of connection between stress and pain and encouragement to utilize skills to manage this. Ed has been minimally engaged with his HEP, reporting multiple stressors as the barrier. He will begin AMP group next week, this database report writer is hopeful additional PNE will prove beneficial. He is interested in individual psychotherapy to address his anxiety and stress r/t his 's declining health. Chart revealed a referral earlier this year was not scheduled successfully; PCP alerted. PLAN: Continue with plan of care and HEP as prescribed. Interventions to include: Begin AMP group 06/06/24 to support individual PT care Manual therapy (PRN): stm, MET's, myofascial release Aerobic exercise: Nustep, graded activity Therex: LB and LE flexibility, gentle progressive core, diaphragmatic breathing; mindful stretching, self trigger point release Education: PNE, posture, ergo, bodymechanics, relaxation techniques, graded activity for aerobic exercise Update Xdynia HEP as indicated [Access Code: [email or web address]] Patient education was provided for all aspects of care during this clinical encounter. /monisha/ EUSEBIA LAWTON DPT PHYSICAL THERAPIST Signed: 06/01/2024 23:09 EUSEBIA LAWTON [facility]
--- OUTSIDE RECORDS SUMMARY | 2024-07-31 10:41 | XMS_ITS ---
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 Date/Time Encounter Type Encounter Description Reason Pro vider Source May 17, 2024 01:03 PM Outpatient Encounter ADMIN PAT ACTIVTIES (MASNONCT) IHE Encounter Template Text not used by [place] Plan of Treatment: Future Appointments (+ 6 months) and Future Tests (+/- 45 days) The Plan of Treatment section includes future care activities for the patient from all [place] [facility]. This section includes future appointments and future orders which are active, pending or scheduled. Future Appointments This section includes appointments that were scheduled to occur 6 months from the date of the Encounter, up to a maximum of 20 appointments. The data comes from all [place] treatment facilities. Appointment Date/Time Appointment Type Appointme nt Facility Name May 22, 2024 10:30 AM AMBULATORY - PS[facility]CHIATRY [facility] [place] [facility] May 26, 2024 11:00 AM AMBULATORY - MEDICINE [facility] [place] [facility] May 31, 2024 01:00 PM AMBULATORY - MEDICINE [facility] [place] [facility] Jun 06, 2024 01:00 PM AMBULATORY - MEDICINE [facility] [place] [facility] Jun 13, 2024 01:00 PM AMBULATORY - MEDICINE [facility] [place] [facility] Jun 14, 2024 11:00 AM AMBULATORY - MEDICINE [facility] [place] [facility] Jun 20, 2024 11:00 AM AMBULATORY - PSYCHIATRY [facility] [place] [facility] Jun 20, 2024 01:00 PM AMBULATORY - MEDICINE [facility] [place] [facility] Jun 27, 2024 01:00 PM AMBULATORY - MEDICINE [facility] [place] [facility] Jul 04, 2024 01:00 PM AMBULATORY - MEDICINE [facility] [place] [facility] Jul 05, 2024 01:00 PM AMBULATORY - MEDICINE [facility] [place] [facility] Jul 10, 2024 08:30 AM AMBULATORY - MEDICINE [facility] [place] [facility] Jul 11, 2024 03:00 PM AMBULATORY - PSYCHIATRY [facility] [place] [facility] Jul 31, 2024 10:30 AM AMBULATORY - NONE [facility] [place] [facility] Aug 01, 2024 08:45 AM AMBULATORY - MEDICINE [facility] [place] [facility] Aug 01, 2024 09:00 AM AMBULATORY - MEDICINE [facility] [place] [facility] Aug 01, 2024 01:00 PM AMBULATORY - MEDICINE [facility] [place] [facility] Aug 08, 2024 01:00 PM AMBULATORY - MEDICINE [facility] [place] [facility] Aug 09, 2024 10:30 AM AMBULATORY - [facility]RY [facility] Aug 15, 2024 10:00 AM [facility] Active, Pending, and Scheduled Orders This section includes a listing of several types of active, pending, and scheduled orders, including clinic medications orders, diagnostic test orders, procedure orders and consult orders; where the start date of the order is 45 days before the date of the Encounter or 45 days after the date of theEncounter. The data comes from all [place] treatment facilities. 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 Current Smoking Status This section includes the most current smoking, or tobacco-related health factor, from the [place] facility where the Encounter took place. Date/Time Current Smoking Status Comment Facil meghana Sep 04, 2021 02:56 PM VA-TOBACCO NEVER USED [facility] Encounter Notes: All associated encounter notes This section contains the clinical notes associated to the Encounter. Date/Time Encounter Note(s) Provider Source May 17, 2024 01:03 PM MEDICATION MGT NOT E: LOCAL TITLE: MEDICATION RENEWAL STANDARD TITLE: MEDICATION MGT NOTE DATE OF NOTE: MAY 17, 2024@13:03 ENTRY DATE: MAY 17, 2024@13:03:21 AUTHOR: JESSICA SCOTT COSIGNER: URGENCY: STATUS: COMPLETED pt req new medication order for: = 1)CYCLOBENZAPRINE HCL 10MG TAB Thank you, Jessica /monisha/ JESSICA CSOTT Cogeneration Operator Signed: 05/17/2024 13:04 Receipt Acknowledged By: 05/17/2024 16:03 /monisha/ MELBA DOE D.O. PHYSICIAN 05/17/2024 15:29 /monisha/ KIMBERLY BARRAZA, BRITTANY REGISTERED NURSE JESSICA SCOTT [facility]
--- OUTSIDE RECORDS SUMMARY | 2024-07-31 10:41 | XMS_ITS | Encounter Summary ---
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 Date/Time Encounter Type Encounter Description Reason Provider Source December 02, 2023 03:00 PM ACUPUNCT W/O STIMUL 15 MIN CI TREATMENT ICD-10-CM M54.2 Cervicalgia CLINTSHONJAMES Uriarte E Encounter Template Text not used by [place] Assessments - Encounter Diagnoses This section includes the primary and secondary diagnoses documented for the Encounter. Date/Time Primary/Secondary Diagnosis Diagnosis Name Provider Source Mar 19, 2024 07:04 AM PRIMARY Cervicalgia JAMES WONG [place] [facility] [place] [facility] Plan of Treatment: Future Appointments (+ 6 months) and Future Tests (+/- 45 days) The Plan of Treatment section includes future care activities for the patient from all [place] [facility]. This section includes future appointments and future orders which are active, pending or scheduled. Future Appointments This section includes appointments that were scheduled to occur 6 months from the date of the Encounter, up to a maximum of 20 appointments. The data comes from all [place] treatment facilities. Appointment Date/Time Appointment Type Appointme nt Facility Name December 06, 2023 09:30 AM AMBULATORY - MEDICINE [facility] [place] [facility] December 09, 2023 01:30 PM AMBULATORY - MEDICINE [facility] [place] [facility] December 09, 2023 03:00 PM AMBULATORY - MEDICINE [place] [facility] [place] [facility] December 14, 2023 10:30 AM AMBULATORY - MEDICINE [facility] [place] [facility] December 14, 2023 01:00 PM AMBULATORY - MEDICINE [facility] [place] [facility] December 16, 2023 08:30 AM AMBULATORY - MEDICINE [facility] [place] [facility] Dec 28, 2023 11:00 AM AMBULATORY - MEDICINE [facility] [place] [facility] Dec 29, 2023 10:00 AM AMBULATORY - MEDICINE [facility] [place] [facility] Dec 29, 2023 11:00 AM AMBULATORY - MEDICINE [facility] [place] [facility] Jan 06, 2024 02:30 PM AMBULATORY - MEDICINE [facility] [place] [facility] Jan 06, 2024 03:45 PM AMBULATORY - MEDICINE [facility] [place] [facility] Jan 14, 2024 12:45 PM AMBULATORY - MEDICINE [place] [facility] [place] [facility] Jan 18, 2024 08:00 AM AMBULATORY - MEDICINE CA [facility] [place] [facility] Jan 19, 2024 08:30 AM AMBULATORY - PSYCHIATRY [place] [facility] [place] [facility] Jan 25, 2024 09:30 AM [facility]UL[facility] Feb 01, 2024 09:30 AM AMBULATORY - [facility] Feb 02, 2024 11:00 AM AMBULATORY - [facility] Feb 02, 2024 12:30 PM AMBULATORY - MEDIC[facility] Feb 10, 2024 11:15 AM AMBULATORY - [facility] Feb 14, 2024 09:30 AM AMBULATORY - MEDICINE [facility] Active, Pending, and Scheduled Orders This section includes a listing of several types of active, pending, and scheduled orders, including clinic medications orders, diagnostic test orders, procedure orders and consult orders; where the start date of the order is 45 days before the date of the Encounter or 45 days after the date of theEncounter. The data comes from all [place] treatment facilities. Test Date/Time Test Type Test Details Facility Name December 23, 2023 12:00 AM Laboratory - Chemi stry Order LIPID PANEL FASTING BLOOD (SST[facility]SERUM) [facility] Jan 06, 2024 12:00 AM Laboratory - Chemi stry Order OCCULT BLOOD FIT X1 SCREEN(IN-HOUSE) STOOL FECES [facility] Social History: Smoking Status (Most current) and Tobacco Use (All prior to encounter date) This section includes the most current, and the historical, smoking and tobacco- related health factors from the [place] facility where the Encounter took place. Current Smoking Status This section includes the most current smoking, or tobacco-related health factor, from the [place] facility where the Encounter took place. Date/Time Current Smoking Status Comment Facil itchaz Sep 04, 2021 02:56 PM VA-TOBACCO NEVER USED [facility] Encounter Notes: All associated encounter notes This section contains the clinical notes associated to the Encounter. Date/Time Encounter Note(s) Provider Source December 02, 2023 03:55 PM PRIMARY CARE NOTE: LOCAL TITLE: [place] ACUPUNCTURE NOTE STANDARD TITLE: PRIMARY CARE NOTE DATE OF NOTE: DECEMBER 02, 2023@15:55 ENTRY DATE: DECEMBER 02, 2023@15:55:48 AUTHOR: SCOT WONG COSIGNER: URGENCY: STATUS: COMPLETED Follow up visit Marmaduke Acupuncture/Marmaduke Acupressure was the only treatment given. Patient was evaluated and agreed to receive Marmaduke Acupuncture (BFA). Patient was evaluated and agreed to receive Marmaduke Acupuncture Protocol (BFA)/Marmaduke Acupressure (BAA) for the following pain condition(s): Comment: Neck pain Pre BFA/BAA Numeric Pain Rating Scale of site with highest pain: number from 0-10: 5 The patient was asked the following questions: During the past 24 hours, how much has your pain interfered with your usual activity? number from 0-10: 6 During the past 24 hours, how much has your pain interfered with your usual sleep? number from 0-10: 8 During the past [...] Numeric Pain Rating Scale: number from 0-10: 3 Standard [id number] time for application of BFA/BAA protocol is 15 minutes. No electrical stimulation was used. /monisha/ SCOT WONG LA.C, DIPL.AC FLYING I INSTRUCTOR Signed: 12/02/2023 15:57 SCOT WONG CNTRL [facility]
--- OUTSIDE RECORDS SUMMARY | 2024-07-31 10:41 | XMS_ITS | Encounter Summary ---
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 Date/Time Encounter Type Encounter Description Reason Pro vider Source May 18, 2024 02:44 PM Outpatient Encounter TELEPHONE/ANCILLARY IHE Encounter Template Text not used by [place] Plan of Treatment: Future Appointments (+ 6 months) and Future Tests (+/- 45 days) The Plan of Treatment section includes future care activities for the patient from all [place] [facility]. This section includes future appointments and [...] - PSYCHIATRY [facility] [place] [facility] May 26, 2024 11:00 AM AMBULATORY - MEDICINE [facility] [place] [facility] May 31, 2024 01:00 PM AMBULATORY - MEDICINE [facility] [place] [facility] Jun 06, 2024 01:00 PM AMBULATORY - MEDICINE [facility] [place] [facility] Jun 13, 2024 01:00 PM AMBULATORY - MEDICINE [facility] [place] [facility] Jun 14, 2024 11:00 AM AMBULATORY - MEDICINE [facility] [place] [facility] Jun 20, 2024 11:00 AM AMBULATORY - PSYCHIATRY [facility] [place] [facility] Jun 20, 2024 01:00 PM AMBULATORY - MEDICINE [facility] [place] [facility] Jun 27, 2024 01:00 PM AMBULATORY - MEDICINE [facility] [place] [facility] Jul 04, 2024 01:00 PM AMBULATORY - MEDICINE [facility] [place] [facility] Jul 05, 2024 01:00 PM AMBULATORY - MEDICINE [facility] [place] [facility] Jul 10, 2024 08:30 AM AMBULATORY - MEDICINE [facility] [place] [facility] Jul 11, 2024 03:00 PM AMBULATORY - PSYCHIATRY [facility] [place] [facility] Jul 31, 2024 10:30 AM AMBULATORY - NONE [facility] [place] [facility] Aug 01, 2024 08:45 AM AMBULATORY - MEDICINE [facility] [place] [facility] Aug 01, 2024 09:00 AM AMBULATORY - MEDICINE [facility] [place] [facility] Aug 01, 2024 01:00 PM AMBULATORY - MEDICINE [facility] Aug 08, 2024 01:00 PM AMBULATORY - MEDICINE [facility] [place] [facility] Aug 09, 2024 10:30 AM [facility] Aug 15, 2024 10:00 AM [facility] [...] Consult Order PSYCHOTHER SHERRY SWANSON/MAGED OUTPT Cons Growth Hacker's Choice [facility] Social History: Smoking Status (Most current) and [...] Encounter. Date/Time Encounter Note(s) Provider Source May 18, 2024 02:44 PM ADMINISTRATIVE NOT E: LOCAL TITLE: ADMINISTRATIVE NOTE STANDARD TITLE: ADMINISTRATIVE NOTE DATE OF NOTE: MAY 18, 2024@14:44 ENTRY DATE: MAY 18, 2024@14:44:37 AUTHOR: ALEXANDER DRAKE COSIGNER: URGENCY: STATUS: COMPLETED ADMINISTRATIVE NOTE Has ADDENDA Provider received patient voicemail with request to call back and schedule a VVC WH Coaching Session. Provider spoke with patient. Patient requesting VVC appt on Sunday, May 26, 2024 @ 11:00am. Provider requesting MARCELO to kindly schedule patient appt: CWChapito/WO/VVC/Whole Health Cra Officer /es/ ALEXANDER DRAKE Whole Health Cra Officer Signed: 05/18/2024 14:45 Receipt Acknowledged By: 05/18/2024 15:08 /es/ KUMAR UNGER RAIL SIGNAL MECHANIC 05/18/2024 15:09 /es/ Nabila Delatorre Supervisory MSA 05/18/2024 ADDENDUM STATUS: COMPLETED Cnc Lathe Programmer scheduled per below 05/26/2024 11:00 CWM/WO/VVC/WHOLE HEALTH TRAVEL OCCUPATIONAL THERAPIST /es/ Nabila Delatorre Supervisory MSA Signed: 05/18/2024 15:11 ALEXANDER DRAKE [facility] ([id number])
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
--- OUTSIDE RECORDS SUMMARY | 2024-07-31 10:43 | XMS_ITS | Encounter Summary ---
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 Date/Time Encounter Type Encounter Description Reason Pro vider Source Jan 24, 2024 11:09 AM Outpatient Encounter CI TREATMENT IHE Encounter Template Text not used by DC Plan of Treatment: Future Appointments (+ 6 months) and Future Tests (+/- 45 days) The Plan of Treatment section includes future care activities for the patient from all [place] [facility]. This section includes future appointments and future orders which are active, pending or scheduled. Future Appointments This section includes appointments that were scheduled to occur 6 months from the date of the Encounter, up to a maximum of 20 appointments. The data comes from all [place] treatment facilities. Appointment Date/Time Appointment Type Appointme nt Facility Name Jan 25, 2024 09:30 AM AMBULATORY - MEDICINE [facility] [place] [facility] Feb 01, 2024 09:30 AM AMBULATORY - MEDICINE [facility] [place] [facility] Feb 02, 2024 11:00 AM AMBULATORY - PSYCHIATRY [facility] [place] [facility] Feb 02, 2024 12:30 PM AMBULATORY - MEDICINE [facility] [place] [facility] Feb 10, 2024 11:15 AM AMBULATORY - REHAB MEDICIN E [facility] [place] [facility] Feb 14, 2024 09:30 AM AMBULATORY - MEDICINE [facility] [place] [facility] Feb 14, 2024 10:00 AM AMBULATORY - MEDICINE [facility] [place] [facility] Mar 01, 2024 09:00 AM AMBULATORY - PSYCHIATRY [facility] [place] [facility] Mar 02, 2024 11:00 AM AMBULATORY - MEDICINE [facility] [place] [facility] Mar 13, 2024 08:00 AM AMBULATORY - MEDICINE [facility] [place] [facility] Mar 15, 2024 10:30 AM AMBULATORY - MEDICINE [facility] [place] [facility] Mar 20, 2024 10:00 AM AMBULATORY - MEDICINE [facility] [place] [facility] Mar 22, 2024 10:45 AM AMBULATORY - MEDICINE [facility] [place] [facility] Mar 22, 2024 11:00 AM AMBULATORY - PSYCHIATRY [facility] [place] [facility] Mar 28, 2024 09:00 AM AMBULATORY - PSYCHIATRY [facility] [place] [facility] Mar 29, 2024 09:00 AM AMBULATORY - MEDICINE [place] [facility] Mar 30, 2024 09:00 AM AMBULATORY - MEDICINE [place] [facility] Apr 12, 2024 11:00 AM AMBULATORY - MEDICINE [place] [facility] Apr 14, 2024 08:30 AM AMBULATORY - MEDICINE [facility] Apr 18, 2024 08:00 AM AMBULATORY - MEDICINE DC C [facility] TRN [facility] Active, Pending, and Scheduled Orders This section includes a listing of several types of active, pending, and scheduled orders, including clinic medications orders, diagnostic test orders, procedure orders and consult orders; where the start date of the order is 45 days before the date of the Encounter or 45 days after the date of theEncounter. The data comes from all [place] treatment facilities. Test Date/Time Test Type Test Details Facility Name December 23, 2023 12:00 AM Laboratory - Chemistry Order LIPID PANEL FASTING BLOOD (SST-SERUM) [facility] Jan 06, 2024 12:00 AM Laboratory - Chemistry Order OCCULT BLOOD FIT X1 SCREEN(IN-HOUSE) [facility]OL [facility] Jan 19, 2024 12:00 AM Laboratory - Chemistry Order HEMOGLOBIN A1C PANEL BLOOD (LAV-BLOOD) [facility] Jan 19, 2024 12:00 AM Laboratory - Chemistry Order BASIC METABOLIC PANEL (non-fasting) BLOOD (SST-SERUM) [facility] Jan 19, 2024 12:00 AM Laboratory - Chemistry Order TSH BLOOD (SST-SERUM) [facility] Jan 19, 2024 12:00 AM Laboratory - Chemistry Order LIVER FUNCTION BLOOD (SST-SERUM) [facility] Jan 19, 2024 12:00 AM Laboratory - Chemistry Order CBC AND DIFF (AUTO) BLOOD (LAV-BLOOD) [facility] Jan 19, 2024 12:00 AM Laboratory - Chemistry Order LIPID PANEL, NON FASTING BLOOD (SST-SERUM) [facility] Social History: Smoking Status (Most current) and Tobacco Use (All prior to encounter date) This section includes the most current, and the historical, smoking and tobacco- related health factors from the [place] facility where the Encounter took place. Current Smoking Status This section includes the most current smoking, or tobacco-related health factor, from the [place] facility where the Encounter took place. Date/Time Current Smoking Status Comment Nick meghana Sep 04, 2021 02:56 PM VA-TOBACCO NEVER USED [facility] Encounter Notes: All associated encounter notes This section contains the clinical notes associated to the Encounter. Date/Time Encounter Note(s) Provider Source Jan 24, 2024 11:09 AM TELEPHONE ENCOUNTE R NOTE: LOCAL TITLE: TELEPHONE NOTE/SPECIALTY CLINIC STANDARD TITLE: TELEPHONE ENCOUNTER NOTE DATE OF NOTE: JAN 24, 2024@11:09 ENTRY DATE: JAN 24, 2024@11:09:41 AUTHOR: ROCIO ROBERTS COSIGNER: URGENCY: STATUS: COMPLETED Call attempt was made to remind vet that they have a FTF appt with the Pain clinic on 01/25/2024 at 1100. No answer, lvm. Location was confirmed. /monisha/ ROCIO ROBERTS ADVANCED ORTHOPEDIC BRACE MAKER Signed: 01/24/2024 11:09 ROCIO ROBERTS [facility]
--- OUTSIDE RECORDS SUMMARY | 2024-07-31 10:43 | XMS_ITS ---
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 Date/Time Encounter Type Encounter Description Reason Pro vider Source Jan 06, 2024 01:37 PM Outpatient Encounter SLEEP MEDICINE IHE Encounter Template Text not used by [place] Plan of Treatment: Future Appointments (+ 6 months) and Future Tests (+/- 45 days) The Plan of Treatment section includes future care activities for the patient from all [place] [facility]. This section includes future appointments and [...] [place] [facility] Jan 18, 2024 08:00 AM AMBULATORY - MEDICINE [place] [facility] [place] [place] [facility] Jan 19, 2024 08:30 AM AMBULATORY - PSYCHIATRY [facility] [place] [facility] Jan 25, 2024 09:30 AM AMBULATORY - MEDICINE [place] [place] [facility] Feb 01, 2024 09:30 AM AMBULATORY - MEDICINE [facility] [place] [facility] Feb 02, 2024 11:00 AM AMBULATORY - PSYCHIATRY [place] [facility] [place] [facility] Feb 02, 2024 12:30 PM AMBULATORY - MEDICINE [place] [facility] Feb 10, 2024 11:15 AM AMBULATORY - REHAB MEDICIN E [facility] [place] [facility] Feb 14, 2024 09:30 AM AMBULATORY - MEDICINE [place] [facility] Feb 14, 2024 10:00 AM AMBULATORY - MEDICINE [place] [place] [facility] Mar 01, 2024 09:00 AM AMBULATORY - PSYCHIATRY [place] [place] [facility] Mar 02, 2024 11:00 AM AMBULATORY - MEDICINE [place] [facility] Mar 13, 2024 08:00 AM AMBULATORY - MEDICINE [place] [facility] Mar 15, 2024 10:30 AM AMBULATORY - MEDICINE [place] [facility] Mar 20, 2024 10:00 AM AMBULATORY - MEDICINE [place] [facility] Mar 22, 2024 10:45 AM AMBULATORY - MEDICINE AL C [facility]N [facility] Mar 22, 2024 11:00 AM AMBULATORY - PSYCHIATRY AL CN[facility]L WSTRN [facility] Mar 28, 2024 09:00 AM AMBULATORY - PSYCHIATRY AL [facility] Mar 29, 2024 09:00 AM AMBULATORY - MEDICINE AL C NTRL TRN [facility] Mar 30, 2024 09:00 AM AMBULATORY - MEDICINE [facility] NTRL [facility] Active, Pending, and Scheduled Orders This [...] Chemistry Order LIPID PANEL FASTING BLOOD (SST-SERUM) [facility] Jan 06, 2024 12:00 AM Laboratory - Chemistry Order OCCULT BLOOD FIT X1 SCREEN(IN-HOUSE) STOOL FECES [facility] Jan 19, 2024 12:00 AM Laboratory - Chemistry Order HEMOGLOBIN A1C PANEL BLOOD (LAV-BLOOD) [facility] Jan 19, 2024 12:00 AM Laboratory - Chemistry Order BASIC METABOLIC PANEL (non-fasting) BLOOD (SST-SERUM) [facility] Jan 19, 2024 12:00 AM Laboratory - Chemistry Order TSH BLOOD (SST-SERUM) [facility] Jan 19, 2024 12:00 AM Laboratory - Chemistry Order CBC AND DIFF (AUTO) BLOOD (LAV-BLOOD) [facility] Jan 19, 2024 12:00 AM Laboratory - Chemistry Order LIVER FUNCTION BLOOD (SST-SERUM) [facility] Jan 19, 2024 12:00 AM Laboratory - Chemistry Order LIPID PANEL, NON FASTING BLOOD (SST-SERUM) [facility] Vital Signs: All taken on the encounter date This section contains inpatient and outpatient Vital Signs collected on the date of the Encounter. Date/Time Temperature Pulse Blood Pressure Respiratory Rate SP02 Pain Height Weight Body Mass Index Source Jan 06, 2024 02:31 PM 98 88 136/72 16 97 5 178 26 [place] [facility] Social History: Smoking Status (Most [...] 04, 2021 02:56 PM VA-TOBACCO NEVER USED [place] CNTR [place] [facility] Encounter Notes: All associated encounter notes This section contains the clinical notes associated to the Encounter. Date/Time Encounter Note(s) Provider Source Jan 06, 2024 01:37 PM PRIMARY CARE TERRANCE RS: LOCAL TITLE: PATIENT LETTER - SPECIALTY [facility] STANDARD TITLE: PRIMARY CARE LETTERS DATE OF NOTE: JAN 06, 2024@13:37 ENTRY DATE: JAN 06, 2024@13:37:50 AUTHOR: DEBBY MOORE COSIGNER: URGENCY: STATUS: COMPLETED DEPARTMENT OF [facility] Specialty Outpatient Clinic Telephone number: [phone] STAR DOUGHERTY [address], [address] JAN 06, 2024 [place], We would like to assist you in scheduling a Home Sleep Study appointment at the [place]. We have been unable to reach you by phone. To schedule this appointment please call us at [phone]. Our booking appointment hours are Wednesday through Wednesday from 8:00 am to 4:00 pm. Please leave a message if you receive voicemail and let us know a good time and telephone number where we can reach you. If we don't hear back from you within 14 days from the date of this letter we will discontinue the request. If you have already scheduled this appointment, please disregard this letter. Your health is important to us. Sincerely, [facility] [address] [id number] [place] [address] [place] [facility] Outpatient [facility] 25 [facility] [address] [place] [address] [place] [address] ext. [phone] [facility] [address] [address] [place] [address] ext. [phone] [facility] [address] [place] [address] ext. [phone] Specialty Outpatient Clinic [address] [place] [address] DEBBY MOORE CN[facility]L [place] [facility]
--- OUTSIDE RECORDS SUMMARY | 2024-07-31 10:43 | XMS_ITS ---
Author Name [facility] [place] Organization [place] Address [address] [place] [id number] Care Team Providers Care Athletic Monitor Name Role Phone NADERMELBA Primary Care Provider [...] PART B Feb 24, 2020 PART B [id number] [phone] STAR DOUGHERTY JR PATIENT MEDICARE (WNR) MEDICARE (M) PART A November 24, 2019 PART A [id number] STAR DOUGHERTY JR PATIENT OFFICE OF [facility] NO-FAULT INSURANCE NO FAULT May 12, 2022 NO FAULT [id number] [phone] STAR DOUGHERTY JR PATIENT FOR LIFE TFL* Feb 24, 2020 [id number] STAR DOUGHERTY JR PATIENT [facility] (WNR) TRICA RE(WN R) Jul 26, 2017 (WNR) [id number] ROSALES DOUGHERTY PATIENT Selected Encounter This section includes the information on record at [place] for the Encounter. Date/Time Encounter Type Encounter Description Reason Provider Source Jan 19, 2024 08:30 AM OFFICE O/P EST MOD 30 MIN [facility] - IND ICD-10-CM F41.9 Anxiety disorder, unspecified TODD MOY E Encounter Template Text not used by [place] Assessments - Encounter Diagnoses This section includes the primary and secondary diagnoses documented for the Encounter. Date/Time Primary/Secondary Diagnosis Diagnosis Name Provider Source Mar 22, 2024 09:31 AM PRIMARY Anxiety disorder, unspecified TODD MOY [place] [facility] [place] [facility] Plan of Treatment: Future Appointments (+ 6 months) and Future Tests (+/- 45 days) The Plan of Treatment section includes future care activities for the patient from all [place] [facility]. This section includes future appointments [...] MEDICINE [place] [facility] [place] [facility] Feb 01, 2024 09:30 AM AMBULATORY - MEDICINE [place] [facility] [facility] Feb 02, 2024 11:00 AM AMBULATORY - PSYCHIATRY [place] [facility] [place] [facility] Feb 02, 2024 12:30 PM AMBULATORY - MEDICINE [place] [facility] [place] [facility] Feb 10, 2024 11:15 AM AMBULATORY - REHAB MEDICIN E [place] [facility] [place] [facility] Feb 14, 2024 09:30 AM AMBULATORY - MEDICINE [place] [facility] [facility] Feb 14, 2024 10:00 AM AMBULATORY - MEDICINE [place] [facility] [place] [facility] Mar 01, 2024 09:00 AM AMBULATORY - PSYCHIATRY [facility] [place] [facility] Mar 02, 2024 11:00 AM AMBULATORY - MEDICINE [place] [facility] [place] [facility] Mar 13, 2024 08:00 AM AMBULATORY - MEDICINE [facility] [place] [facility] Mar 15, 2024 10:30 AM AMBULATORY - MEDICINE [place] [facility] [place] [facility] Mar 20, 2024 10:00 AM AMBULATORY - MEDICINE [place] [facility] [place] [facility] Mar 22, 2024 10:45 AM AMBULATORY - MEDICINE [place] [facility] [place] [facility] Mar 22, 2024 11:00 AM AMBULATORY - PSYCHIATRY [facility] [place] [facility] Mar 28, 2024 09:00 AM AMBULATORY - PSYCHIATRY [place] [facility] [place] [facility] Mar 29, 2024 09:00 AM AMBULATORY - MEDICINE [place] [facility] [place] [facility] Mar 30, 2024 09:00 AM AMBULATORY - MEDICINE [place] [facility] [place] [facility] Apr 12, 2024 11:00 AM AMBULATORY - MEDICINE [place] [facility] [place] [place] [facility] Apr 14, 2024 08:30 AM AMBULATORY - MEDICINE [place] [facility] [place] [facility] Apr 18, 2024 08:00 AM AMBULATORY - [facility] Active, Pending, and Scheduled Orders This section [...] Chemistry Order LIPID PANEL FASTING BLOOD (SST-SERUM) [facility] Jan 06, 2024 12:00 AM Laboratory - Chemistry Order OCCULT BLOOD FIT X1 SCREEN(IN-HOUSE) ST[facility]OL [facility] Jan 19, 2024 12:00 AM Laboratory - Chemistry Order HEMOGLOBIN A1C PANEL BLOOD (LAV-BLOOD) [facility] [place] [facility] Jan 19, 2024 12:00 AM Laboratory - Chemistry Order BASIC METABOLIC PANEL (non-fasting) BLOOD (SST-SERUM) [facility] Jan 19, 2024 12:00 AM Laboratory - Chemistry Order TSH BLOOD (SST-SERUM) [facility] Jan 19, 2024 12:00 AM Laboratory - Chemistry Order LIVER FUNCTION BLOOD (SST-SERUM) [facility] Jan 19, 2024 12:00 AM Laboratory - Chemistry Order CBC AND DIFF (AUTO) BLOOD (LAV-BLOOD) [facility] Jan 19, 2024 12:00 AM Laboratory - Chemistry Order LIPID PANEL, NON FASTING BLOOD (SST-SERUM) [facility] Social History: Smoking Status (Most current) [...] 04, 2021 02:56 PM VA-TOBACCO NEVER USED [facility] Encounter Notes: All associated encounter notes This section contains the clinical notes associated to the Encounter. Date/Time Encounter Note(s) Provider Source Jan 19, 2024 08:46 AM PRIMARY CARE NURSE PRACTITIONER OUTPATIENT NOTE: LOCAL TITLE: NURSE PRACTITIONER OUTPATIENT NOTE STANDARD TITLE: PRIMARY CARE NURSE PRACTITIONER OUTPATIENT NOTE DATE OF NOTE: JAN 19, 2024@08:46 ENTRY DATE: JAN 19, 2024@08:46:47 AUTHOR: YANCY MOYIGNRITIKA: URGENCY: STATUS: COMPLETED OUTPATIENT MENTAL HEALTH CLINIC: FOLLOW-UP HPI: STAR DOUGHERTY JR, a 68 y/o male previously diagnosed with Generalized Anxiety Disorder with Panic Attacks [place] [facility]. Last seen by This Provider on 11/17/23 reports mood as pretty good. Feels that mood has improved a little bit and thinks that weather and feels that weather has helped mood in addition to increased engagement with multiple treatment modalities for pain management. Acupuncture helpful for pain symptoms. Biofeedback and chiropractor have also been helpful Chronic back and shoulder pain and 's medical needs continue to be stressors. Does not see any benefit from gabapentin, which was titrated downwards at last assessment. Will discontinue this medication. With regards to recently initiated QUETIAPINE reports I like that. It seems to help with sleep and anxiety in equal measure. A little bit of both. Has been taking 50 mg QHS and denies side effects QUETIAPINE helps a little with sleep initiation but sleep is still disrupted. I don't sleep due to humidity and pain. Only sleeps two hours at a time, if that, and only 4-5 hours per night, in total. Rates anxiety as a 5/10 in severity. Doesn't always take LORAZEPAM every day. Non-pharmacological coping skills learned in biofeedback have helped reduce dependence as have changes in pharmacotherapy regimen. Only takes it if headed into a real stressful situation. No falls Depression 5 or a 6 out of 10 in severity. No change from previous baseline. explicitly and convincingly denied SI, intent or [...] memory grossly intact to conversational testing Mood: a little better Affect: mood congruent MEDICAL HISTORY: Active Problem Exposure to potentially hazardous s 09/23/2023 ALISHA DAVISON Cervical radiculopathy M54.12 08/12/2023 MARIBEL SHAFER Tinnitus H93.19, Onset 05/31/2023NovemberBERTO Pain R52., Onset 05/31/2023NovemberBERTO Anxiety F41.9, Onset 09/04/2021NovemberBERTO Benign prostatic hyperplasia N40.1, 06/16/2023 MELBA DOE ALLERGIES: Data on this list may not be complete. Please check JLV. FACILITY ALLERGY/ADR -------- No Remote Allergy/ADR Data available for this patient [place] [facility] [place] [facility] No Known Allergies MEDICATIONS: reviewed and updated in CPRS Active Outpatient Medications (including Supplies): Active Outpatient Medications Status 1) ATORVASTATIN CALCIUM 40MG TAB TAKE ONE-HALF TABLET BY ACTIVE MOUTH ONCE DAILY FOR HIGH CHOLESTEROL 2) BUSPIRONE HCL 15MG TAB TAKE ONE TABLET BY MOUTH TWICE ACTIVE DAILY ANXIETY 3) CYCLOBENZAPRINE HCL 10MG TAB TAKE ONE TABLET BY MOUTH ACTIVE ONCE DAILY NEEDED FOR MUSCLE SPASM 4) DICLOFENAC NA 1% TOP GEL APPLY 2 GRAMS TOPICALLY FOUR ACTIVE TIMES A DAY FOR OSTEOARTHRITIS - USE DOSING CARD PROVIDED IN BOX 5) FLUOXETINE HCL 20MG CAP TAKE THREE CAPSULES BY MOUTH ACTIVE ONCE DAILY FOR DEPRESSION AND ANXIETY 6) GABAPENTIN 600MG TAB TAKE ONE-HALF TABLET BY MOUTH ACTIVE ONCE DAILY NEEDED ANXIETY-OFF LABEL 7) LIDOCAINE 5% PATCH APPLY 1 PATCH TOPICALLY ONCE DAILY ACTIVE NEEDED FOR NERVE PAIN (LEAVE PATCH ON FOR 12 HOURS, THEN REMOVE PATCH) 8) LORAZEPAM 0.5MG TAB TAKE ONE TABLET BY MOUTH ONCE ACTIVE DAILY NEEDED FOR ANXIETY/PANIC 9) MELOXICAM 15MG TAB TAKE ONE TABLET BY MOUTH ONCE ACTIVE DAILY FOR JOINT INFLAMMATION (TAKE WITH FOOD) 10) QUETIAPINE FUMARATE 25MG TAB TAKE ONE TABLET BY MOUTH ACTIVE AT BEDTIME LABS AND STUDIES: REVIEWED SAFETY ASSESSMENT: No acute safety concerns. Convincingly denies any thoughts, intents, or plans to harm self or others. Chronic risk is elevated by status and mental illness but is currently mitigated by participation in treatment and demonstration of help-seeking behaviors. IMPRESSION: presents as polite, cooperative and treatment motivated Will discontinue gabapentin which was of no discernible benefit. agrees that QUETIAPINE has been at least marginally beneficial for sleep initiation and in reducing symptoms of anxiety. Denies sedation or other side effects at current dose. Given that [place] has derived limited benefit from alternative anxiolytics in four different drug classes and sleep and anxiety remain predominant areas of concern agreed to increase QUETIAPINE from 50 to 100 mg PO QHS. Benefits justify the risk of titrating this medication upwards despite its off label use, side effect profile and relative contraindication in the geriatric population. No acute safety concerns Diagnosis: Generalized Anxiety Disorder Insomnia Disorder PLAN: 1) CONTINUE LORAZEPAM 0.5 mg PO PRN 2) CONTINUE FLUoxetine 60 MG PO DAILY 3) CONTINUE BUSPIRONE FROM 10 MG TO 15 MG PO BID 4) DISCONTINUE GABAPENTIN 5) INCREASE QUETIAPINE FROM 50 TO 100 MG PO QHS Labs: Basic Metabolic Panel, CBC w/ Auto Diff, TSH, Liver Function and Lipid Panel Follow-Up: 02/02/24 Discussed risks and benefits of proposed medication treatments including FDA approved indications and off-label uses, as well as common and severe side effects. comprehended all information discussed, had opportunity to ask questions which were answered to their satisfaction, and voluntarily and without duress agreed to trial as documented. CONTACT AND CRISIS INFO: informed that This Provider can be contacted at , [phone] or via Secure Messaging. 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 CODING: Total time today was 30 minutes, which included an in-person visit with the patient, providing counseling and education, and time spent reviewing the record, ordering meds, completing documentation, and coordinating care. CLINICAL REMINDERS: AIMS Testing: AIMS (Mental Health Instrument) The patient was evaluated for symptoms of tardive dyskinesia using the AIMS. Total score for items 1-7: 0 Medication Reconciliation: Outpatient: Has the patient been taking medications as documented in the EMLR? YES: The patient has been taking medications as documented in the EMLR. Essential Medication List for Review used to complete this medication reconciliation. INCLUDED IN THIS LIST: Alphabetical list of active outpatient prescriptions dispensed from this [place] (local) and dispensed from another [place] or [facility] facility (remote) as well as inpatient orders [...] MOY Psychiatric Mental Health Nurse Practitioner Signed: 01/19/2024 09:29 YANCY MOY [place] [facility]
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
--- OUTSIDE RECORDS SUMMARY | 2024-07-31 10:43 | XMS_ITS ---
Author Name [facility] [place] Organization [place] Address [address] [place] [address] Care Team Providers Care Sewer Name Role Phone MELBA DOE Primary Care [...] PART B Feb 24, 2020 PART B [id number] STAR DOUGHERTY JR PATIENT MEDICARE (WNR) MEDICARE (M) PART A November 24, 2019 PART A [id number] STAR DOUGHERTY JR PATIENT OFFICE OF REGIONAL [facility] NO-FAULT INSURANCE NO FAULT May 12, 2022 NO FAULT [id number] STAR DOUGHERTY JR PATIENT FOR LIFE TFL* Feb 24, 2020 [id number] STAR DOUGHERTY JR PATIENT [facility] (WNR) TRICA RE(WN R) Jul 26, 2017 (WNR) [id number] ROSALES DOUGHERTY [place] PATIENT Selected Encounter This section includes the information on record at [place] for the Encounter. Date/Time Encounter Type Encounter Description Reason Provider Source Dec 29, 2023 11:00 AM PSYCHOPHYSIOLOGICAL THERAPY [facility] TREATMENT ICD-10-CM G89.4 Chronic pain syndrome JOAN ROJAS IHE Encounter Template Text not used by [place] Assessments - Encounter Diagnoses This section includes the primary and secondary diagnoses documented for the Encounter. Date/Time Primary/Secondary Diagnosis Diagnosis Name Provider Source Mar 20, 2024 06:43 AM PRIMARY Chronic pain syndrome YAMILE ROJAS [facility] [place] [facility] Mar 20, 2024 06:43 AM SECONDARY Anxiety disorder, unspecified YAMILE ROJAS [facility] [place] [facility] Plan of Treatment: Future Appointments (+ 6 months) and Future Tests (+/- 45 days) The Plan of Treatment section includes future care activities for the patient from all [place] [facility]. This section includes future appointments and future orders which are active, pending or scheduled. Future Appointments This section includes appointments that were scheduled to occur 6 months from the date of the Encounter, up to a maximum of 20 appointments. The data comes from all [place] treatment facilities. Appointment Date/Time Appointment Type Appointme nt Facility Name Jan 06, 2024 02:30 PM AMBULATORY - MEDICINE [facility] [place] [facility] Jan 06, 2024 03:45 PM AMBULATORY - MEDICINE [facility] [place] [facility] Jan 14, 2024 12:45 PM AMBULATORY - MEDICINE [facility] [place] [facility] Jan 18, 2024 08:00 AM AMBULATORY - MEDICINE [facility] [place] [facility] Jan 19, 2024 08:30 AM AMBULATORY - PSYCHIATRY [facility] [place] [facility] Jan 25, 2024 09:30 AM AMBULATORY - MEDICINE [facility] [place] [facility] Feb 01, 2024 09:30 AM AMBULATORY - MEDICINE [facility] [place] [facility] Feb 02, 2024 11:00 AM AMBULATORY - PSYCHIATRY [facility] [place] [facility] Feb 02, 2024 12:30 PM AMBULATORY - MEDICINE [facility] [place] [facility] Feb 10, 2024 11:15 AM AMBULATORY - REHAB MEDICIN E [facility] [place] [facility] Feb 14, 2024 09:30 AM AMBULATORY - MEDICINE [facility] [place] [facility] Feb 14, 2024 10:00 AM AMBULATORY - MEDICINE [facility] [place] [facility] Mar 01, 2024 09:00 AM AMBULATORY - PSYCHIATRY [facility] [place] [facility] Mar 02, 2024 11:00 AM AMBULATORY - MEDICINE [facility] [place] [facility] Mar 13, 2024 08:00 AM AMBULATORY - MEDICINE [facility] [place] [facility] Mar 15, 2024 10:30 AM AMBULATORY - MEDICINE [facility] [place] [facility] Mar 20, 2024 10:00 AM AMBULATORY - MEDICINE [facility] [place] [facility] Mar 22, 2024 10:45 AM AMBULATORY - MEDICINE HI [facility] [place] [facility] Mar 22, 2024 11:00 AM AMBULATORY - PSYCHIATRY [facility] [place] [facility] Mar 28, 2024 09:00 AM [facility] Active, Pending, and Scheduled Orders This section [...] Chemistry Order LIPID PANEL FASTING BLOOD (SST-SERUM) [facility] [place] [facility] Jan 06, 2024 12:00 AM Laboratory - Chemistry Order OCCULT BLOOD FIT X1 SCREEN(IN-HOUSE) STOOL FECES SP [facility] [place] [facility] Jan 19, 2024 12:00 AM Laboratory - Chemistry Order HEMOGLOBIN A1C PANEL BLOOD (LAV-BLOOD) [facility] [place] [facility] Jan 19, 2024 12:00 AM Laboratory - Chemistry Order BASIC METABOLIC PANEL (non-fasting) BLOOD (SST-SERUM) [facility] [place] [facility] Jan 19, 2024 12:00 AM Laboratory - Chemistry Order TSH BLOOD (SST-SERUM) [facility] [place] [facility] Jan 19, 2024 12:00 AM Laboratory - Chemistry Order LIVER FUNCTION BLOOD (SST-SERUM) [facility] Jan 19, 2024 12:00 AM Laboratory - Chemistry Order CBC AND DIFF (AUTO) BLOOD (LAV-BLOOD) [facility] Jan 19, 2024 12:00 AM Laboratory - Chemistry Order LIPID PANEL, NON FASTING BLOOD (SST-SERUM) [facility] Social History: Smoking Status (Most current) [...] 04, 2021 02:56 PM VA-TOBACCO NEVER USED [facility] Encounter Notes: All associated encounter notes This section contains the clinical notes associated to the Encounter. Date/Time Encounter Note(s) Provider Source Dec 29, 2023 12:13 PM PRIMARY CARE NOTE: LOCAL TITLE: BIOFEEDBACK NOTE STANDARD TITLE: PRIMARY CARE NOTE DATE OF NOTE: DEC 29, 2023@12:13 ENTRY DATE: DEC 29, 2023@12:14:03 AUTHOR: YAMILE ROJAS EXP COSIGNER: URGENCY: STATUS: COMPLETED Location: [facility] Clinic Duration: 60 minutes Provider: Yamile Rojas, Ph.D. Session #: 2 Session Type: Biofeedback PURPOSE OF VISIT / TREATMENT: presented for individual biofeedback to address chronic pain. TREATMENT GOALS: 1. Decrease pain. 2. Decrease anxiety. 3. Increase function. 4. Be able to drive for more than 30 minutes at a time. BASELINE MEASURES: Assessments were sent to the via text/email. These assessments were completed by STAR DOUGHERTY JR on their own device on 12/29/2023 2:25:49 PM. PAIN OUTCOMES QUESTIONNAIRE (POQ) The patient reported the following with regard to pain using a scale of 0 to 10: Average pain during the last week: 5 Pain interfered with ability to do the following: Walk: 1 Carry/handle everyday objects: 3 Climb stairs: 2 Bathe self: 0 Dress self: 0 Use the bathroom: 0 Manage personal groomin Pain requires use of a cane, walker, wheelchair or other devices: 0 Pain affects self-esteem or self-worth: 0 Rating of physical activity*: 3 Rating of overall energy*: 4 Rating of strength and endurance TODAY *: 5 Rating of feelings of depression TODAY: 0 Rating of feelings of anxiety TODAY: 3 Worry about re-injuring self if more active: 0 Think it's safe to exercise*: 7 Problems concentrating on things today: 1 Feel tense: 3 Items with an * indicate higher scores being in better health. All others, lower numbers indicate better health. Percentile scores show the ranking of this patient relative to inpatient or outpatient mental health intakes (e.g. a 95th percentile score reflects that 95% of inpatient/outpatients scored at that level or lower). Scale Raw Score (Inpatient %ile / Outpatient %ile) Pain = 5 (14th% / 11th%) Mobility = 6 (3rd% / 3rd%) Activities of Daily Living (ADL) = 0 (6th% / 12th%) Vitality = 18 (29th% / 30th%) Negative = 7 (4th% / 9th%) Fear Score = 3 (6th% / 6th%) POQ Calculated Score = 34 GERIATRIC ANXIETY INVENTORY (GAI) The patient reported the following over the past week: 1. I worry a lot of the time: Agree 2. I find it difficult to make a decision: Agree 3. I often feel jumpy: Agree 4. I find it hard to relax: Agree 5. I often cannot enjoy things because my worries: Agree 6. Little things bother me a lot: Agree 7. I often get butterflies in my stomach: Disagree 8. I think of myself as a worrier: Agree 9. I can't help worrying about trivial things: Agree 10. I often feel nervous: Agree 11. My own thoughts often make me nervous: Agree 12. I get an upset stomach due to my worrying: Disagree 13. I think of myself as a nervous person: Disagree 14. I always anticipate the worst will happen: Disagree 15. I often feel shaky inside: Agree 16. I think that my worries interfere with my life: Agree 17. My worries often overwhelm me: Disagree 18. I sometimes feel a great knot in my stomach: Disagree 19. I miss out on things because I worry too much: Disagree 20. I often feel upset: Agree Score: 13 A score >= 8 points is suggestive of an anxiety disorder. Higher scores indicate greater number of anxiety symptoms. CONTENT OF SESSION / INTERVENTIONS: Today was the 's second session of biofeedback. Web Development Manager provided an overview of biofeedback. Web Development Manager then provided a rationale for and conducted Respiration Lab 1 with the . was also provided with psychoeducation about expected ranges for each of biofeedback modalities, including average respiration rates and optimal respiration rates for parasympathetic activation. Specifically, conducted 17-minute biofeedback (BFB) respiration training, including the following modalities: [] Skin conductance [] Temperature [] Electromyography [x] BVP Heart rate [x] Respiration rate Solicited feedback from Clayton between each trial regarding his physiological and somatic experiences to increase his mindful awareness of bodily responses and sensations. Additionally, provided feedback to to optimize adherence to different breath rates, e.g., pausing at inhale/exhale if pacer rate feels uncomfortable. Summary of biofeedback results in ASSESSMENT below. RESPONSE TO TREATMENT AND PROGNOSIS: Clayton described his breathing practice as good. He added, It's working out well. It's lessened the anxiety. tolerated biofeedback equipment and practice well. asked relevant questions and was fully engaged. Clayton's baseline breath rate was 13 bpm. During training, he did not experience any lightheadedness or dizziness. He reported feeling most comfortable breathing at 6 breaths per minute, yet this breath rate still felt a bit too fast to him. When publicity writer had him breathe at his own pace for three minutes, he naturally breathed at 6.33 bpm. Before training, Clayton rated his current pain and anxiety as follows using a 0-10 NRS (where 0 = none and 10 = worst imaginable): pain = 3 ( the best I've felt in six months ) and anxiety = 3. After training, both ratings remained the same. [X] is actively developing goals. [] Clayton is making progress towards goals. [] has not met treatment goals and their condition is unchanged. [] Clayton has met treatment goals and thus treatment is complete. ASSESSMENT: 1. Breathing rates were not always consistent with instructions. 2. Peaks and valleys were generally rounded. 3. Breathing organization could be improved. 4. Resonant frequency (RF) assessment may not be indicated. 5. Clayton could benefit from additional respiration training. RISK ASSESSMENT: Clayton did not endorse SI/HI. He is at low risk at this time. BEHAVIORAL OBSERVATIONS: arrived on time and unaccompanied for his appointment today. Clayton was adequately groomed and casually dressed. He ambulated without an assistive device. Eye contact was within normal limits. Mood was anxious, but affect was pleasant. Clayton was able to provide clear information. Insight, judgment, and cognitive faculties appeared intact. DIAGNOSIS: Chronic Pain Syndrome (Primary) Anxiety PLAN: The following plan was developed in collaboration with the . Clayton was involved in making informed choices regarding the treatment, and he was provided with rationale for recommended treatment benefits, risks, and alternatives. 1. Continue individual biofeedback with this publicity writer. Next appointment scheduled for 01/11/24 at 11:00 a.m. 2. Prior to next session, Clayton will practice paced breathing at 6 bpm for 5 minutes twice daily, once during the day and once at bedtime. /monisha/ YAMILE ROJAS, PH.D. CLINICAL HEALTH PSYCHOLOGIST Signed: 01/07/2024 18:28 YAMILE ROJAS [facility]
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
--- OUTSIDE RECORDS SUMMARY | 2024-07-31 10:44 | XMS_ITS ---
Author Name Department of Vetera [facility] [place] Organization [facility] [place] Address [address] [place] [address] Care Team Providers Care Sisal Picker Name Role Phone MELBA DOE Primary Care [...] PART B Feb 24, 2020 PART B [id number] LADONNA COLEMANSTAR PATIENT MEDICARE (WNR) MEDICARE (M) PART A November 24, 2019 PART A [id number] STAR DOUGHERTY JR PATIENT OFFICE OF REGIONAL LAN ENGINEER NO-FAULT INSURANCE NO FAULT May 12, 2022 NO FAULT [id number] STAR DOUGHERTY JR PATIENT FOR LIFE TFL* Feb 24, 2020 [id number] [phone] STAR DOUGHERTY JR PATIENT [facility] (WNR) TRICA RE(WN R) Jul 26, 2017 (WNR) [id number] 14 ROSALES DOUGHERTY PATIENT Selected Encounter This section includes the information on record at [place] for the Encounter. Date/Time Encounter Type Encounter Description Reason Pro vider Source Feb 02, 2024 03:58 PM Outpatient Encounter HEALTH/WELLBEING [facility] IHE Encounter Template Text not used by [place] Plan of Treatment: Future Appointments (+ 6 months) and Future Tests (+/- 45 days) The Plan of Treatment section includes future care activities for the patient from all [place] treatmentfacilities. This section includes future appointments and future orders which are active, pending or scheduled. Future Appointments This section includes appointments that were scheduled to occur 6 months from the date of the Encounter, up to a maximum of 20 appointments. The data comes from all [place] treatment facilities. Appointment Date/Time Appointment Type Appointme nt Facility Name Feb 10, 2024 11:15 AM AMBULATORY - [facility]IC[facility] [place] [facility] Feb 14, 2024 09:30 AM AMBULATORY - MEDICINE [facility] [place] [facility] Feb 14, 2024 10:00 AM AMBULATORY - MEDICINE [facility] [place] [facility] Mar 01, 2024 09:00 AM AMBULATORY - PSYCHIATRY [facility] [place] [facility] Mar 02, 2024 11:00 AM AMBULATORY - MEDICINE [facility] [place] [facility] Mar 13, 2024 08:00 AM AMBULATORY - MEDICINE [facility] [place] [facility] Mar 15, 2024 10:30 AM AMBULATORY - MEDICINE [facility] [place] [facility] Mar 20, 2024 10:00 AM AMBULATORY - MEDICINE [facility] [place] [facility] Mar 22, 2024 10:45 AM AMBULATORY - MEDICINE [facility] [place] [place] [facility] Mar 22, 2024 11:00 AM AMBULATORY - PSYCHIATRY [facility] [place] [facility] Mar 28, 2024 09:00 AM AMBULATORY - PSYCHIATRY [facility] [place] [facility] Mar 29, 2024 09:00 AM AMBULATORY - MEDICINE [facility] [place] [facility] Mar 30, 2024 09:00 AM AMBULATORY - MEDICINE [facility] [place] [facility] Apr 12, 2024 11:00 AM AMBULATORY - MEDICINE [facility] [place] [facility] Apr 14, 2024 08:30 AM AMBULATORY - MEDICINE [facility] [place] [facility] Apr 18, 2024 08:00 AM AMBULATORY - MEDICINE [place] [facility] [place] [facility] Apr 19, 2024 01:00 PM AMBULATORY - MEDICINE [place] [facility] [place] [facility] Apr 24, 2024 11:00 AM AMBULATORY - PSYCHIATRY [facility] [place] [facility] Apr 24, 2024 01:00 PM AMBULATORY - MEDICINE [place] [facility] [place] [facility] Apr 26, 2024 01:00 PM AMBULATORY - MEDICINE [place] [facility] Active, Pending, and Scheduled Orders This [...] Chemistry Order LIPID PANEL FASTING BLOOD (SST-SERUM) [facility] Jan 06, 2024 12:00 AM Laboratory - Chemistry Order OCCULT BLOOD FIT X1 SCREEN(IN-HOUSE) STOOL FECES [facility] Jan 19, 2024 12:00 AM Laboratory - Chemistry Order HEMOGLOBIN A1C PANEL BLOOD (LAV-BLOOD) [facility] Jan 19, 2024 12:00 AM Laboratory - Chemistry Order BASIC METABOLIC PANEL (non-fasting) BLOOD (SST-SERUM) [facility] Jan 19, 2024 12:00 AM Laboratory - Chemistry Order LIVER FUNCTION BLOOD (SST-SERUM) [facility] Jan 19, 2024 12:00 AM Laboratory - Chemistry Order TSH BLOOD (SST-SERUM) [facility] Jan 19, 2024 12:00 AM Laboratory - Chemistry Order CBC AND DIFF (AUTO) BLOOD (LAV-BLOOD) [facility] Jan 19, 2024 12:00 AM Laboratory - Chemistry Order LIPID PANEL, NON FASTING BLOOD (SST-SERUM) [facility] Social History: Smoking Status (Most current) and [...] 04, 2021 02:56 PM VA-TOBACCO NEVER USED [place] [facility] Encounter Notes: All associated encounter notes This section contains the clinical notes associated to the Encounter. Date/Time Encounter Note(s) Provider Source Feb 02, 2024 03:58 PM LETTERS: LOCAL TITLE: PATIENT LETTER (B) STANDARD TITLE: LETTERS DATE OF NOTE: FEB 02, 2024@15:58 ENTRY DATE: FEB 02, 2024@15:58:44 AUTHOR: ROCIO ROBERTS COSIGNER: URGENCY: STATUS: COMPLETED [facility] Toll Free Number [facility] scheduling can be reached at ext. [phone] [facility]- ext. [phone] [facility]- ext. [phone] [facility]- ext. [phone] FEB 02, 2024 STAR DOUGHERTY [address] [place] [id number] Dear STAR DOUGHERTY JR We would like to assist you in scheduling a WHOLE HEALTH COACHING appointment at the [place]. We have been unable to reach you by phone. To schedule this appointment please call us at ext. [phone]. Our booking appointment hours are Wednesday through [...] Your health is important to us. Sincerely, [facility] [address] [place] [address] [place] [address] [place] [facility]patient [facility] 25 [facility] [address] [place] [address] [place] [address] ext. [phone] [place] [facility] [address] [address] [place] [address] ext. [phone] [facility] [address] [place] [address] ext. [phone] ROCIO ROBERTS [facility] TRN [facility]
--- OUTSIDE RECORDS SUMMARY | 2024-07-31 10:44 | XMS_ITS ---
Author Name [facility] [place] Organization [place] Address [address] [place] [id number] Care Team Providers Care Medicine And Health Service Manager Name Role Phone MELBA DOE Primary [...] PART B Feb 24, 2020 PART B [id number] DOUGHERTY STAR PATIENT MEDICARE (WNR) MEDICARE (M) PART A November 24, 2019 PART A [id number] DOUGHERTY STAR COLEMAN PATIENT OFFICE OF REGIONAL WOOD GOUGER NO-FAULT INSURANCE NO FAULT May 12, 2022 NO FAULT [id number] LADONNA COLEMANSTAR PATIENT FOR LIFE TFL* Feb 24, 2020 [id number] STAR DOUGHERTY JR PATIENT [facility] (WNR) TRICA RE(WN R) Jul 26, 2017 (WNR) [id number] 14 ROSALES DOUGHERTY PATIENT Selected Encounter This section includes the information on record at [place] for the Encounter. Date/Time Encounter Type Encounter Description Reason Pro vider Source Feb 22, 2024 09:10 AM Outpatient Encounter TELEPHONE MH IHE Encounter Template Text not used by [place] Plan of Treatment: Future Appointments (+ 6 months) and Future Tests (+/- 45 days) The Plan of Treatment section includes future care activities for the patient from all [place] [facility] This section includes future appointments and future orders which are active, pending or scheduled. Future Appointments This section includes appointments that were scheduled to occur 6 months from the date of the Encounter, up to a maximum of 20 appointments. The data comes from all [place] treatment facilities. Appointment Date/Time Appointment Type Appointme nt Facility Name Mar 01, 2024 09:00 AM AMBULATORY - PSYCHIATRY [facility] [place] [facility] Mar 02, 2024 11:00 AM AMBULATORY - MEDICINE [facility] [place] [facility] Mar 13, 2024 08:00 AM AMBULATORY - MEDICINE [facility] [place] [facility] Mar 15, 2024 10:30 AM AMBULATORY - MEDICINE [facility] [place] [facility] Mar 20, 2024 10:00 AM AMBULATORY - MEDICINE [facility] [place] [facility] Mar 22, 2024 10:45 AM AMBULATORY - MEDICINE [facility] [place] [facility] Mar 22, 2024 11:00 AM AMBULATORY - PSYCHIATRY [facility] [place] [facility] Mar 28, 2024 09:00 AM AMBULATORY - PSYCHIATRY [facility] [place] [facility] Mar 29, 2024 09:00 AM AMBULATORY - MEDICINE [facility] [place] [facility] Mar 30, 2024 09:00 AM AMBULATORY - MEDICINE [facility] [place] [facility] Apr 12, 2024 11:00 AM AMBULATORY - MEDICINE [facility] [place] [facility] Apr 14, 2024 08:30 AM AMBULATORY - MEDICINE [facility] [place] [facility] Apr 18, 2024 08:00 AM AMBULATORY - MEDICINE [facility] [place] [facility] Apr 19, 2024 01:00 PM AMBULATORY - MEDICINE [facility] [place] [facility] Apr 24, 2024 11:00 AM AMBULATORY - PSYCHIATRY [facility] [place] [facility] Apr 24, 2024 01:00 PM AMBULATORY - MEDICINE [facility] Apr 26, 2024 01:00 PM AMBULATORY - MEDICINE [facility] N[facility]L [facility] May 01, 2024 02:45 PM AMBULATORY - MEDICINE [place] C [facility] May 02, 2024 02:00 PM AMBULATORY - MEDICINE [facility] May 02, 2024 02:30 PM AMBULATORY - MEDICINE [facility] Active, Pending, and [...] of theEncounter. The data comes from all [facility] facilities. Test Date/Time Test Type Test Details Facility Name Jan 19, 2024 12:00 AM Laboratory - Chemistry Order HEMOGLOBIN A1C PANEL BLOOD (LAV-BLOOD) [facility] Jan 19, 2024 12:00 AM Laboratory - Chemistry Order BASIC METABOLIC PANEL (non-fasting) BLOOD (SST-SERUM) [facility] Jan 19, 2024 12:00 AM Laboratory - Chemistry Order LIVER FUNCTION BLOOD (SST-SERUM) [facility] Jan 19, 2024 12:00 AM Laboratory - Chemistry Order TSH BLOOD (SST-SERUM) [facility] Jan 19, 2024 12:00 AM Laboratory - Chemistry Order CBC AND DIFF (AUTO) BLOOD (LAV-BLOOD) [facility] Jan 19, 2024 12:00 AM Laboratory - Chemistry Order LIPID PANEL, NON FASTING BLOOD (SST-SERUM) [facility] Mar 29, 2024 09:37 AM Consult Order COMMUNITY CARE-COLONOSCOPY SURVEILLANCE Cons Link And Link Knitting Machine Operator's Choice [facility] Social History: Smoking Status (Most current) and [...] 04, 2021 02:56 PM VA-TOBACCO NEVER USED [facility] Encounter Notes: All associated encounter notes This section contains the clinical notes associated to the Encounter. Date/Time Encounter Note(s) Provider Source Feb 22, 2024 09:10 AM MENTAL HEALTH NOTE : LOCAL TITLE: TC BHIP CC ASSIGNMENT STANDARD TITLE: MENTAL HEALTH NOTE DATE OF NOTE: FEB 22, 2024@09:10 ENTRY DATE: FEB 22, 2024@09:10:33 AUTHOR: RACHEL KAUFMAN EXP COSIGNER: URGENCY: STATUS: COMPLETED Mental Health Six Horse Hitch Driver Assignment Reassignment The 's current Mental Health Six Horse Hitch Driver (MHTC) is: MH Treatment Team: LUCIEN Amado MH Six Horse Hitch Driver: ELODIA GAMEZ Office Phone: Analog Pager: Digital Pager: This note documents the REASSIGNMENT of the [facility] Six Horse Hitch Driver (MHTC) on Jan. New MHTC name: Rachel Kaufman TC Contact Information: [phone] Additional PCMM notes: [facility] TEAM B This 's existing MHTC was reassigned due to: [place] is transitioning to a new [facility] Team /monisha/ FLAKITA Cheek BH Trim Technician Signed: 02/22/2024 09:11 RACHEL KAUFMAN [facility]
--- OUTSIDE RECORDS SUMMARY | 2024-07-31 10:44 | XMS_ITS | Encounter Summary ---
Author Name [facility] [place] Organization [place] Address [address] [place] [id number] Care Team Providers Care Senior Rd Engineer Name Role Phone MELBA DOE Primary [...] PART B Feb 24, 2020 PART B [id number] STAR DOUGHERTY JR PATIENT MEDICARE (WNR) MEDICARE (M) PART A November 24, 2019 PART A [id number] STAR DOUGHERTY JR PATIENT OFFICE OF REGIONAL PEANUT BLANCHER NO-FAULT INSURANCE NO FAULT May 12, 2022 NO FAULT [id number] STAR DOUGHERTY JR PATIENT FOR LIFE TFL* Feb 24, 2020 [id number] 14 STAR DOUGHERTY JR PATIENT [facility] (WNR) TRICA RE(WN R) Jul 26, 2017 (WNR) [id number] 14 ROSALES DOUGHERTY [place] PATIENT Selected Encounter This section includes the information on record at [place] for the Encounter. Date/Time Encounter Type Encounter Description Reason Pro vider Source Jan 25, 2024 08:31 AM Outpatient Encounter CI TREATMENT IHE Encounter Template Text not used by [place] Plan of Treatment: Future Appointments (+ 6 months) and Future Tests (+/- 45 days) The Plan of Treatment section includes future care activities for the patient from all [place] [facility]. This section includes future appointments and future orders which are active, pending or scheduled. Future Appointments This section includes appointments that were scheduled to occur 6 months from the date of the Encounter, up to a maximum of 20 appointments. The data comes from all [place] treatment facilities. Appointment Date/Time Appointment Type Appointme nt Facility Name Feb 01, 2024 09:30 AM AMBULATORY - MEDICINE [facility] [place] [place] [facility] Feb 02, 2024 11:00 AM AMBULATORY - PSYCHIATRY [facility] [place] [facility] Feb 02, 2024 12:30 PM AMBULATORY - MEDICINE [facility] [place] [facility] Feb 10, 2024 11:15 AM AMBULATORY - REHAB MEDICIN E [facility] [place] [facility] Feb 14, 2024 09:30 AM AMBULATORY - MEDICINE [facility] [place] [facility] Feb 14, 2024 10:00 AM AMBULATORY - MEDICINE [facility] [place] [facility] Mar 01, 2024 09:00 AM AMBULATORY - PSYCHIATRY [facility] [place] [facility] Mar 02, 2024 11:00 AM AMBULATORY - MEDICINE [facility] [place] [facility] Mar 13, 2024 08:00 AM AMBULATORY - MEDICINE [facility] [place] [facility] Mar 15, 2024 10:30 AM AMBULATORY - MEDICINE [facility] [place] [facility] Mar 20, 2024 10:00 AM AMBULATORY - MEDICINE [facility] [place] [facility] Mar 22, 2024 10:45 AM AMBULATORY - MEDICINE [facility] [place] [facility] Mar 22, 2024 11:00 AM AMBULATORY - PSYCHIATRY [facility] [place] [facility] Mar 28, 2024 09:00 AM AMBULATORY - PSYCHIATRY [facility] [place] [facility] Mar 29, 2024 09:00 AM AMBULATORY - MEDICINE [facility] [place] [facility] Mar 30, 2024 09:00 AM AMBULATORY - MEDICINE [place] [facility] Apr 12, 2024 11:00 AM AMBULATORY - MEDICINE [place] [facility] Apr 14, 2024 08:30 AM AMBULATORY - MEDICINE [place] [facility] Apr 18, 2024 08:00 AM AM[facility]ULATORY [facility] [place] [facility] Apr 19, 2024 01:00 PM AMBULATORY - MEDICINE [place] C N[facility] TRN [facility] Active, Pending, and Scheduled Orders This [...] Chemistry Order LIPID PANEL FASTING BLOOD (SST-SERUM) [facility] Jan 06, 2024 12:00 AM Laboratory - Chemistry Order OCCULT BLOOD FIT X1 SCREEN(IN-HOUSE) STOOL FECES [facility] Jan 19, 2024 12:00 AM Laboratory - Chemistry Order HEMOGLOBIN A1C PANEL BLOOD (LAV-BLOOD) [facility] Jan 19, 2024 12:00 AM Laboratory - Chemistry Order BASIC METABOLIC PANEL (non-fasting) BLOOD (SST-SERUM) [facility] Jan 19, 2024 12:00 AM Laboratory - Chemistry Order TSH BLOOD (SST-SERUM) [facility] Jan 19, 2024 12:00 AM Laboratory - Chemistry Order LIVER FUNCTION BLOOD (SST-SERUM) [facility] Jan 19, 2024 12:00 AM Laboratory - Chemistry Order CBC AND DIFF (AUTO) BLOOD (LAV-BLOOD) [facility] Jan 19, 2024 12:00 AM Laboratory - Chemistry Order LIPID PANEL, NON FASTING BLOOD (SST-SERUM) [facility] Social History: Smoking Status (Most [...] 2021 02:56 PM VA-TOBACCO NEVER USED [facility] Encounter Notes: All associated encounter notes This section contains the clinical notes associated to the Encounter. Date/Time Encounter Note(s) Provider Source Jan 25, 2024 08:31 AM ADMINISTRATIVE NOT E: LOCAL TITLE: ADMINISTRATIVE NOTE STANDARD TITLE: ADMINISTRATIVE NOTE DATE OF NOTE: JAN 25, 2024@08:31 ENTRY DATE: JAN 25, 2024@08:31:48 AUTHOR: JONATHAN MARI EXP COSIGNER: URGENCY: STATUS: COMPLETED ADMINISTRATIVE NOTE Has ADDENDA Dispositioned RTC PID 01/25/2024, vet had to cx appt. Provider will place new RTC when new appt date is negoitiated. /es/ JONATHAN MARI ADVANCED SOCIAL SERVICE DIRECTOR Signed: 01/25/2024 08:33 02/15/2024 ADDENDUM STATUS: COMPLETED Spray Drier Operator Helper briefly spoke with Ed via telephone. He is unable to pursue biofeedback at this time. He said he will call this director underwriter sales if and when he is ready to resume treatment. /es/ YAMILE EVANGELISTA, PH.D. CLINICAL HEALTH PSYCHOLOGIST Signed: 02/15/2024 08:09 JONATHAN MARI [facility]
--- OUTSIDE RECORDS SUMMARY | 2024-07-31 10:44 | XMS_ITS ---
Author Name [facility] [place] [facility] [place] Organization [facility] [place] Address [address] [place] [address] Care Team Providers Care Exhibitions Curator Name Role Phone BORISNALLELY GUADALUPE Primary Care Provider Unavailabl e Insurance Providers: [...] PART B Feb 24, 2020 PART B [id number] STAR DOUGHERTY JR PATIENT MEDICARE (WNR) MEDICARE (M) PART A November 24, 2019 PART A [id number] STAR DOUGHERTY JR PATIENT OFFICE OF REGIONAL PARTICIPANT ADMINISTRATOR NO-FAULT INSURANCE NO FAULT May 12, 2022 NO FAULT [id number] STRA DOUGHERTY JR PATIENT FOR LIFE TFL* Feb 24, 2020 [id number] [phone] ST[address] JR [address] [facility] (R) TRICA RE(WN R) Jul 26, 2017 (WNR) [id number] ROSALES DOUGHERTY PATIENT Selected Encounter This section includes the information on record at [place] for the Encounter. 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 Date/Time Primary/Secondary Diagnosis Diagnosis Name Provider Source Mar 19, 2024 11:49 AM PRIMARY Cervicalgia MICHAEL HERNANDEZ [place] [facility] [place] [facility] Mar 19, 2024 11:49 AM SECONDARY Other low back pain MICHAEL HERNANDEZ [place] [facility] [place] [facility] Plan of Treatment: Future Appointments (+ 6 months) and Future Tests (+/- 45 days) The Plan of Treatment section includes future care activities for the patient from all [place] treatmentfacilities. This section includes future appointments and [...] - MEDICINE [facility] [place] [facility] Feb 02, 2024 11:00 AM AMBULATORY - PSYCHIATRY [facility] [place] [facility] Feb 02, 2024 12:30 PM AMBULATORY - MEDICINE [facility] [place] [facility] Feb 10, 2024 11:15 AM AMBULATORY - REHAB MEDICIN E [facility] [place] [facility] Feb 14, 2024 09:30 AM AMBULATORY - MEDICINE [facility] [place] [facility] Feb 14, 2024 10:00 AM AMBULATORY - MEDICINE [facility] [place] [facility] Mar 01, 2024 09:00 AM AMBULATORY - PSYCHIATRY [facility] [place] [facility] Mar 02, 2024 11:00 AM AMBULATORY - MEDICINE [facility] [place] [facility] Mar 13, 2024 08:00 AM AMBULATORY - MEDICINE [facility] [place] [facility] Mar 15, 2024 10:30 AM AMBULATORY - MEDICINE [facility] [place] [facility] Mar 20, 2024 10:00 AM AMBULATORY - MEDICINE [facility] [place] [facility] Mar 22, 2024 10:45 AM AMBULATORY - MEDICINE [facility] [place] [facility] Mar 22, 2024 11:00 AM AMBULATORY - PSYCHIATRY [facility] [place] [facility] Mar 28, 2024 09:00 AM AMBULATORY - PSYCHIATRY [facility] [place] [facility] Mar 29, 2024 09:00 AM AMBULATORY - MEDICINE [facility] [place] [facility] Mar 30, 2024 09:00 AM AMBULATORY - MEDICINE [facility] [place] [facility] Apr 12, 2024 11:00 AM AMBULATORY - MEDICINE [facility] [place] [facility] Apr 14, 2024 08:30 AM AMBULATORY - MEDICINE [facility] [place] [facility] Apr 18, 2024 08:00 AM AMBULATORY - MEDICINE [facility] [place] [facility] Apr 19, 2024 01:00 PM AMBULATORY - MEDICINE [place] [facility] Active, Pending, and Scheduled Orders This [...] Chemistry Order LIPID PANEL FASTING BLOOD (SST[facility]SERUM) [facility] [place] [facility] Jan 06, 2024 12:00 AM Laboratory - Chemistry Order OCCULT BLOOD FIT X1 SCREEN(IN-HOUSE) STOOL FECES SP [place] [facility] [place] [facility] Jan 19, 2024 12:00 AM Laboratory - Chemistry Order HEMOGLOBIN A1C PANEL BLOOD (LAV-BLOOD) [facility] [place] [facility] Jan 19, 2024 12:00 AM Laboratory - Chemistry Order BASIC METABOLIC PANEL (non-fasting) BLOOD (SST-SERUM) [facility] [place] [facility] Jan 19, 2024 12:00 AM Laboratory - Chemistry Order TSH BLOOD (SST-SERUM) [facility] [place] [facility] Jan 19, 2024 12:00 AM Laboratory - Chemistry Order CBC AND DIFF (AUTO) BLOOD (LAV-BLOOD) SP [facility] Jan 19, 2024 12:00 AM Laboratory - Chemistry Order LIVER FUNCTION BLOOD (SST-SERUM) SP [facility] Jan 19, 2024 12:00 AM Laboratory - Chemistry Order LIPID PANEL, NON FASTING BLOOD (SST-SERUM) SP [facility] Social History: Smoking Status (Most current) and [...] 04, 2021 02:56 PM VA-TOBACCO NEVER USED [facility] Encounter Notes: All associated encounter notes This section contains the clinical notes associated to the Encounter. Date/Time Encounter Note(s) Provider Source Jan 25, 2024 09:20 AM CHIROPRACTIC NOTE: LOCAL TITLE: CHIROPRACTOR PROGRESS NOTE STANDARD TITLE: CHIROPRACTIC NOTE DATE OF NOTE: JAN 25, 2024@09:20 ENTRY DATE: JAN 25, 2024@09:20:30 AUTHOR: MICHAEL HERNANDEZ COSIGNER: URGENCY: STATUS: COMPLETED STAR DOUGHERTY JR is a 68 WHITE MALE with prior history of COMBAT SERVICE INDICATED: No POS: PERIOD OF SERVICE - OTHER OR NONE SERVICE BRANCH: 80/20 Solutions 20 years Service Connected Disabilities with % Eligibility: Active Problem Exposure to potentially hazardous s 09/23/2023 ALISHA DAVISON Cervical radiculopathy M54.12 08/12/2023 MARIBEL SHAFER Tinnitus H93.19, Onset 05/31/2023November,BERTO Johnson Pain R52., Onset 05/31/2023NovemberBERTO Anxiety F41.9, Onset 09/04/2021NovemberBERTO Benign prostatic hyperplasia N40.1, 06/16/2023 NALLELY DOE Past Surgeries: [facility] [place] [facility] with report of incr back pain and same stiffness in neck, left side and upper back. Sx aggravated by driving to [place]. Wednesday he went to [place] and sat in a pew for 45 minute and followed with shopping which involved carrying things into house. Yesterday he mowed the lawn which also contributed to the sx. His fell in the garden and patient sat in ED chairs for a long time. Patient C/O neck pain L>R and low back No N/T in UEs. He describes the [...] in am Prior treatment: Physical therapy at [facility]; deep tissue massage; [facility] neck therapy, massage; cortisone injections in low back R shoulder Prior career guidance counselor - none Vet states that he has ignored the pain for quite a while. Exercise/Activities: none except yard work, stretching ; and going for a walk which is getting more difficult. He states that he is under a lot of stress. His is waiting for a liver transplant. Going to [place] for appts. Reviewed Radiologist's reports: none found [facility] MRI L/Sp Shoulder injury 1989 and he had a little chiropractic treatment. Patient denies bowel/bladder dysfunction saddle anesthesia, recent fevers, infections, night sweats, unexplained weight loss, dysphagia, dysarthria, numbness, diploplia Patient's PCP is Nallely Munguia GOALS: spend better quality time w family; fishing; target practice EXAM Active CERVICAL ROM largely WNL limited and [...] ~ Supine gluteal stretching as per palpation Objectives 01/25/24: Hypertonic Cervical, thoracic, lumbar paraspnal mm, bilat Restrictions cervical, thoracic, lumbar Treatment: active/corrective Manual therapy 5 min MFR lumbar and cervical F/D mechanical lumbar traction w flex and lat bending, 8 min CMT low force AT cervical, thoracic, lumbar [...] Chiro; Patient is scheduled for [facility]. Visit 3 F/U 4 weekly Seek urgent care as needed. CMT: chiropractic manipulative therapy SMT: Spinal Manipulative Therapy F/D: Flexion Distraction MFR: Myofascial Release S-I: Sacroiliac MFTP: Myofascial Trigger Point NRS: Numeric Rating Scale N/T: Numbness/Tingling PIR: Post isometric relaxation /es/ MICHAEL HERNANDEZ D.C. CHIROPRACTOR Signed: 01/28/2024 12:44 MICHAEL HERNANDEZ [place] [facility]
--- OUTSIDE RECORDS SUMMARY | 2024-07-31 10:44 | XMS_ITS | Encounter Summary ---
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 Date/Time Encounter Type Encounter Description Reason Provider Source Feb 14, 2024 10:00 AM WELLNESS ASSESSMENT BY NONP HEALTH/WELLBEING [facility] ICD-10-CM Z71.89 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ed counseling ALEXANDER DRAKE Encounter Template Text not used by [place] Assessments - Encounter Diagnoses This section includes the primary and secondary diagnoses documented for the Encounter. Date/Time Primary/Secondary Diagnosis Diagnosis Name Provider Source Mar 20, 2024 09:52 AM PRIMARY 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ed counseling ALEXANDER DRAKE [place] [facility] [place] [facility] Plan of Treatment: Future Appointments (+ 6 months) and Future Tests (+/- 45 days) The Plan of Treatment section includes future care activities for [facility] [place] [facility] This section includes future [...] AMBULATORY - PSYCHIATRY [facility] [place] [facility] Mar 02, 2024 11:00 AM AMBULATORY - MEDICINE [facility] [place] [facility] Mar 13, 2024 08:00 AM AMBULATORY - MEDICINE [facility] [place] [facility] Mar 15, 2024 10:30 AM AMBULATORY - MEDICINE [facility] [place] [facility] Mar 20, 2024 10:00 AM AMBULATORY - MEDICINE [facility] [place] [facility] Mar 22, 2024 10:45 AM AMBULATORY - MEDICINE [facility] [place] [facility] Mar 22, 2024 11:00 AM AMBULATORY - PSYCHIATRY [facility] [place] [facility] Mar 28, 2024 09:00 AM AMBULATORY - PSYCHIATRY [facility] [place] [facility] Mar 29, 2024 09:00 AM AMBULATORY - MEDICINE [facility] [place] [facility] Mar 30, 2024 09:00 AM AMBULATORY - MEDICINE [facility] [place] [facility] Apr 12, 2024 11:00 AM AMBULATORY - MEDICINE [facility] [place] [facility] Apr 14, 2024 08:30 AM AMBULATORY - MEDICINE [facility] [place] [facility] Apr 18, 2024 08:00 AM AMBULATORY - MEDICINE [place] [facility] [place] [facility] Apr 19, 2024 01:00 PM AMBULATORY - MEDICINE [place] [facility] [place] [facility] Apr 24, 2024 11:00 AM AMBULATORY - PSYCHIATRY [facility] [place] [facility] Apr 24, 2024 01:00 PM AMBULATORY - MEDICINE [facility] [place] [facility] Apr 26, 2024 01:00 PM AMBULATORY - MEDICINE [facility] [place] [facility] May 01, 2024 02:45 PM AMBULATORY - MEDICINE [place] [facility] [place] [facility] May 02, 2024 02:00 PM AMBULATORY - MEDICINE [place] [facility] [place] [facility] May 02, 2024 02:30 PM AMBULATORY - MEDICINE [place] [facility] Active, Pending, and Scheduled Orders This [...] Test Type Test Details Facility Name Jan 06, 2024 12:00 AM Laboratory - Chemistry Order OCCULT BLOOD FIT X1 SCREEN(IN-HOUSE) STOOL FECES SP [place] [facility] [place] [facility] Jan 19, 2024 12:00 AM Laboratory - Chemistry Order HEMOGLOBIN A1C PANEL BLOOD (LAV-BLOOD) [facility] [place] [facility] Jan 19, 2024 12:00 AM Laboratory - Chemistry Order BASIC METABOLIC PANEL (non-fasting) BLOOD (SST-SERUM) [place] [facility] [place] [facility] Jan 19, 2024 12:00 AM Laboratory - Chemistry Order TSH BLOOD (SST-SERUM) [facility] [place] [facility] Jan 19, 2024 12:00 AM Laboratory - Chemistry Order CBC AND DIFF (AUTO) BLOOD (LAV-BLOOD) [facility] [place] [facility] Jan 19, 2024 12:00 AM Laboratory - Chemistry Order LIVER FUNCTION BLOOD (SST-SERUM) [facility] Jan 19, 2024 12:00 AM Laboratory - Chemistry Order LIPID PANEL, NON FASTING BLOOD (SST-SERUM) SP [facility] Mar 29, 2024 09:37 AM Consult Order COMMUNITY CARE-COLONOSCOPY SURVEILLANCE Cons Store Group Manager's Choice [facility] Social History: Smoking Status (Most current) [...] 04, 2021 02:56 PM VA-TOBACCO NEVER USED [facility] Encounter Notes: All associated encounter notes This section contains the clinical notes associated to the Encounter. Date/Time Encounter Note(s) Provider Source Feb 14, 2024 11:20 AM CONSULT: LOCAL TITLE: CONSULT REPORT/WHOLE HEALTH COACHING STANDARD TITLE: CONSULT DATE OF NOTE: FEB 14, 2024@11:20 ENTRY DATE: FEB 14, 2024@11:20:25 AUTHOR: ALEXANDER DRAKE COSIGNER: URGENCY: STATUS: COMPLETED CONSULT REPORT/WHOLE HEALTH COACHING Has ADDENDA Health and Wellness Coaching HEALTH AND WELLNESS COACHING VISIT *Type of Visit: In-person *Session number: Coaching Session #1 Time spent with Pipestem: 30-60 minutes Well-Being Signs (WBS) reviewed. Well-Being Signs Well-Being Signs (WBS) WBS Average Score: 5 Questions and Answers: Over the past month, on average how often have you been: 1. Fully satisfied with how these things are going? 5 2. Regularly involved in things that are important to you? 5 3. Functioning your best in the most important things you do? 5 What really matters to STAR DOUGHERTY JR. [employer], Aspiration, Purpose (MAP) Family, physical health and mental well-being was seen for Health and Wellness Coaching related to: Other: patient [employer] GOALS Long-Term Whole Health Goals: To be discussed during future Coaching Session Short-Term S.M.A.R.T. Goals: To be discussed during future Coaching Session DISCUSSION: Patient was provided with Whole Health Coaching overview, responsibilities, and guidelines, and was informed of confidentiality policy. [facility] Holistic Health Practitioner and Patient reviewed and discussed [place] of Health and Areas of Self-Care. Reviewed the Personal Health Inventory form (pg. 1). Session focused on mindful awareness, values, and MAP. Patient requested to schedule next Coaching appt. on February @ 10:00am. PLAN: Patient to review and completed PHI (page 2) and reflect upon rated areas of self-care and MAP. Holistic Health Practitioner and patient will continue to review PHI, discuss high/low rated areas of self-care. Review and discuss long and short-term SMART goals, values, strengths, and support. Patient to begin determining a focus area of self-care and develop 1st action step towards desired goal. Visit Plan: Arranged follow-up with : February @ 10:00am Pipestem agreed to follow-up by: (F2F)In-person visit Provider requesting MARCELO to kindly schedule patient appt: HIRO/IVAN/Whole Health Coaching 1 /es/ ALEXANDER DRAKE Whole Health Holistic Health Practitioner Signed: 02/14/2024 11:25 Receipt Acknowledged By: 02/14/2024 12:50 /es/ ROCIO ROBERTS ADVANCED GAS APPLIANCE SERVICER HELPER 02/14/2024 12:01 /es/ JONATHAN MARI ADVANCED GAS APPLIANCE SERVICER HELPER 02/14/2024 13:12 /es/ Massiel Nixon, PhD Clinical Psychologist 02/14/2024 ADDENDUM STATUS: COMPLETED APPT SCHEDULED FOR 02/24/2024 @ 10 AM /monisha/ JONATHAN MARI ADVANCED GAS APPLIANCE SERVICER HELPER Signed: 02/14/2024 12:01 ALEXANDER DRAKE [facility]
--- OUTSIDE RECORDS SUMMARY | 2024-07-31 10:44 | XMS_ITS ---
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 Date/Time Encounter Type Encounter Description Reason Provider Source Feb 04, 2024 01:33 PM PT EDUCATION NOC INDIVID HEALTH/WELLBEING SRVS ICD-10-CM Z72.3 Lack of physical exercise DIANA VELAZQUEZ [facility] Encounter Template Text not used by [place] Assessments - Encounter Diagnoses This section includes the primary and secondary diagnoses documented for the Encounter. Date/Time Primary/Secondary Diagnosis Diagnosis Name Provider Source Mar 20, 2024 09:54 AM PRIMARY Lack of physical exercise DIANA VELAZQUEZ [place] [facility] [place] [facility] Plan of Treatment: Future Appointments (+ 6 months) and Future Tests (+/- 45 days) The Plan of Treatment section includes future care activities for the patient from all [place] treatmentfacilities. This section includes future appointments and [...] MEDICIN E [facility] [place] [facility] Feb 14, 2024 09:30 AM AMBULATORY - MEDICINE [facility] [place] [facility] Feb 14, 2024 10:00 AM AMBULATORY - MEDICINE [facility] [place] [facility] Mar 01, 2024 09:00 AM AMBULATORY - PSYCHIATRY [facility] [place] [facility] Mar 02, 2024 11:00 AM AMBULATORY - MEDICINE [facility] [place] [facility] Mar 13, 2024 08:00 AM AMBULATORY - MEDICINE [facility] [place] [facility] Mar 15, 2024 10:30 AM AMBULATORY - MEDICINE [facility] [place] [facility] Mar 20, 2024 10:00 AM AMBULATORY - MEDICINE [facility] [place] [facility] Mar 22, 2024 10:45 AM AMBULATORY - MEDICINE [facility] [place] [facility] Mar 22, 2024 11:00 AM AMBULATORY - PSYCHIATRY [facility] [place] [facility] Mar 28, 2024 09:00 AM AMBULATORY - PSYCHIATRY [facility] [place] [facility] Mar 29, 2024 09:00 AM AMBULATORY - MEDICINE [facility] [place] [facility] Mar 30, 2024 09:00 AM AMBULATORY - MEDICINE [facility] [place] [facility] Apr 12, 2024 11:00 AM AMBULATORY - MEDICINE [facility] [place] [facility] Apr 14, 2024 08:30 AM AMBULATORY - MEDICINE [facility] [place] [facility] Apr 18, 2024 08:00 AM AMBULATORY - MEDICINE [facility] [place] [facility] Apr 19, 2024 01:00 PM AMBULATORY - MEDICINE [facility] [place] [facility] Apr 24, 2024 11:00 AM AMBULATORY - PSYCHIATRY [facility] [place] [facility] Apr 24, 2024 01:00 PM AMBULATORY - MEDICINE [facility] [place] [facility] Apr 26, 2024 01:00 PM AMBULATORY - MEDICINE NE C [facility] [place] [facility] Active, Pending, and Scheduled Orders [...] Chemistry Order LIPID PANEL FASTING BLOOD (SST-SERUM) [facility] [place] [facility] Jan 06, 2024 12:00 AM Laboratory - Chemistry Order OCCULT BLOOD FIT X1 SCREEN(IN-HOUSE) STOOL FECES [facility] [place] [facility] Jan 19, 2024 12:00 AM Laboratory - Chemistry Order HEMOGLOBIN A1C PANEL BLOOD (LAV-BLOOD) [facility] [place] [facility] Jan 19, 2024 12:00 AM Laboratory - Chemistry Order BASIC METABOLIC PANEL (non-fasting) BLOOD (SST-SERUM) [facility] [place] [facility] Jan 19, 2024 12:00 AM Laboratory - Chemistry Order TSH BLOOD (SST-SERUM) [facility] [place] [facility] Jan 19, 2024 12:00 AM Laboratory - Chemistry Order LIVER FUNCTION BLOOD (SST-SERUM) [facility] [place] [facility] Jan 19, 2024 12:00 AM Laboratory - Chemistry Order CBC AND DIFF (AUTO) BLOOD (LAV-BLOOD) SP [facility] Jan 19, 2024 12:00 AM Laboratory - Chemistry Order LIPID PANEL, NON FASTING BLOOD (SST-SERUM) [facility] Social History: Smoking Status (Most current) [...] 04, 2021 02:56 PM VA-TOBACCO NEVER USED [facility] Encounter Notes: All associated encounter notes This section contains the clinical notes associated to the Encounter. Date/Time Encounter Note(s) Provider Source Feb 04, 2024 02:10 PM INTEGRATIVE HEALTH NOTE: LOCAL TITLE: WHOLE HEALTH PERSONAL HEALTH INVENTORY STANDARD TITLE: INTEGRATIVE HEALTH NOTE DATE OF NOTE: FEB 04, 2024@14:10 ENTRY DATE: FEB 04, 2024@14:10:22 AUTHOR: DIANA VELAZQUEZ: URGENCY: STATUS: COMPLETED What really matters most to you in your life? FAMILY What activities would you like (or need) to do, that you are currently having difficulties with? WORKING IN GARDEN AND YARD What are you trying to be healthy for? FAMILY AND Please rate yourself on a scale of 1 (low) to 5 (high) where you are now and where you would like to be: Working on the body: How physically active are you? Where are you now? 3 - Moderate Where would you like to be? 5 - High Recharge: How well do you sleep, relax and recover? Where are you now? 3 - Moderate Where would you like to be? 5 - High Food and Drink: Do you consider your eating habits healthy? Where are you now? 2 Where would you like to be? 4 Power of the mind: How well do you maintain a positive outlook, healthy relationships and caring for your mental health? Where are you now? 2 Where would you like to be? 5 - High What are your Gerofit exercise goal(s) in the next 3 months? Make the goal specific, measurable, achievable, relevant, time-based. improve strength to be able to work in garden and support my . Whole Health Coaching is designed to assist Veterans who may be struggling with motivation to make changes: such as, exercise, diet, mindfulness, personal development etc. Coaching will include brief individual and/or group meetings to help support the [place] with reaching their desired goals. Are you interested in receiving Whole Health Coaching outside of the GeroFit program? YES /monisha/ DIANA VELAZQUEZ PT, DPT PHYSICAL THERAPIST Signed: 02/04/2024 14:24 DIANA VELAZQUEZ [place] [facility] [place] [facility] Feb 04, 2024 01:33 PM GERIATRIC MEDICINE NOTE: LOCAL TITLE: GEROFIT PROGRESS NOTE STANDARD TITLE: GERIATRIC MEDICINE NOTE DATE OF NOTE: FEB 04, 2024@13:33 ENTRY DATE: FEB 04, 2024@13:34:11 AUTHOR: DIANA VELAZQUEZ EXP COSIGNER: URGENCY: STATUS: COMPLETED GEROFIT PROGRESS NOTE Has ADDENDA showed for his initial PFT however noted he doesn't feel this is the right time and is wanting to engage with Dr. Lawton in PT further to discuss before starting. PNE discussed pain alarm and potential for activity, secondary to the pain he is experiencing. He did bring up his current stressors of life including his wifes Liver transpant issues and the requirement for driving aross the state in urgent manner due to [place] transplant calls, and unfortunately not being successful of late. The was shown pelivc rocking and hip ER mobility exercises that can be done while drving with cruise control on, seated walking exercises due to the restriction of doing the long drive without rest breaks. The patient was educated on trying to make the car seat more comfortable, shown an inflatable style lumbar(spinal cushion that provides support in the areas that need it depending on the individuals posture.) Further was inform that Gerofit can be attended as little as 1 x every 2 months while this isn't going to make any significant progress, it is a way to stay commited to the program and start slow, or 1 x a week or 1 x every other week, just getting started would be beneficial for both his body and his stressors. Following meeting today I have placed him on hold for Gerofit, is startoin PT with Dr. Lawton next week and this typewriter aligner will follow up with her and as appropriate the to discuss joining Gerofit. /monisha/ DIANA VELAZQUEZ PT, DPT PHYSICAL THERAPIST Signed: 02/04/2024 13:43 Receipt Acknowledged By: 02/07/2024 09:44 /monisha/ EUSEBIA LAWTON DPT PHYSICAL THERAPIST 04/14/2024 ADDENDUM STATUS: COMPLETED The patient is working with Pain PT and at this time doesn't have a plan to start Gerofit in the near future for this reason the is being removed from the active Gerofit Roster and will require new Gerofit consult to be considered to join at that time. /monisha/ DIANA VELAZQUEZ PT, DPT PHYSICAL THERAPIST Signed: 04/14/2024 13:57 DIANA VELAZQUEZ [facility]
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
--- OUTSIDE RECORDS SUMMARY | 2024-07-31 10:44 | XMS_ITS | Encounter Summary ---
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 Date/Time Encounter Type Encounter Description Reason Pro vider Source Jan 25, 2024 10:30 AM Outpatient Encounter HEALTH/WELLBEING SRVS IHE Encounter [...] - MEDICINE [facility] [place] [facility] Feb 02, 2024 11:00 AM AMBULATORY - PSYCHIATRY [facility] [place] [facility] Feb 02, 2024 12:30 PM AMBULATORY - MEDICINE [facility] [place] [facility] Feb 10, 2024 11:15 AM AMBULATORY - REHAB MEDICIN E [facility] [place] [facility] Feb 14, 2024 09:30 AM AMBULATORY - MEDICINE [facility] [place] [facility] Feb 14, 2024 10:00 AM AMBULATORY - MEDICINE [facility] [place] [facility] Mar 01, 2024 09:00 AM AMBULATORY - PSYCHIATRY [facility] [place] [facility] Mar 02, 2024 11:00 AM AMBULATORY - MEDICINE [place] [facility] [place] [facility] Mar 13, 2024 08:00 AM AMBULATORY - MEDICINE [place] [facility] [place] [facility] Mar 15, 2024 10:30 AM AMBULATORY - MEDICINE [place] [facility] [place] [facility] Mar 20, 2024 10:00 AM AMBULATORY - MEDICINE [place] [facility] [place] [facility] Mar 22, 2024 10:45 AM AMBULATORY - MEDICINE [place] [facility] [place] [facility] Mar 22, 2024 11:00 AM AMBULATORY - PSYCHIATRY [place] [facility] [facility] Mar 28, 2024 09:00 AM AMBULATORY - PSYCHIATRY [facility] [facility] Mar 29, 2024 09:00 AM AMBULATORY - MEDICINE [place] [facility] [place] [facility] Mar 30, 2024 09:00 AM AMBULATORY - MEDICINE [place] [facility] [place] [facility] Apr 12, 2024 11:00 AM AMBULATORY - MEDICINE [place] [facility] [place] [facility] Apr 14, 2024 08:30 AM AMBULATORY - MEDICINE [place] [facility] [place] [facility] Apr 18, 2024 08:00 AM AMBULATORY - MEDICINE [place] [facility] [place] [facility] Apr 19, 2024 01:00 PM AMBULATORY - [facility]ICINE [facility] Active, Pending, and Scheduled Orders This [...] Chemistry Order LIPID PANEL FASTING BLOOD (SST-SERUM) [facility] Jan 06, 2024 12:00 AM Laboratory - Chemistry Order OCCULT BLOOD FIT X1 SCREEN(IN-HOUSE) STOOL FECES [facility] Jan 19, 2024 12:00 AM Laboratory - Chemistry Order BASIC METABOLIC PANEL (non-fasting) BLOOD (SST-SERUM) [facility] Jan 19, 2024 12:00 AM Laboratory - Chemistry Order HEMOGLOBIN A1C PANEL BLOOD (LAV-BLOOD) [facility] Jan 19, 2024 12:00 AM Laboratory - Chemistry Order TSH BLOOD (SST-SERUM) [facility] Jan 19, 2024 12:00 AM Laboratory - Chemistry Order LIVER FUNCTION BLOOD (SST-SERUM) [facility] Jan 19, 2024 12:00 AM Laboratory - Chemistry Order CBC AND DIFF (AUTO) BLOOD (LAV-BLOOD) [facility] Jan 19, 2024 12:00 AM Laboratory - Chemistry Order LIPID PANEL, NON FASTING BLOOD (SST-SERUM) [facility] Social History: Smoking Status (Most current) [...] 02:56 PM VA-TOBACCO NEVER USED [place] [facility] Encounter Notes: All associated encounter notes This section contains the clinical notes associated to the Encounter. Date/Time Encounter Note(s) Provider Source Jan 25, 2024 10:30 AM PRIMARY CARE TERRANCE RS: LOCAL TITLE: PATIENT LETTER - SPECIALTY [facility] STANDARD TITLE: PRIMARY CARE LETTERS DATE OF NOTE: JAN 25, 2024@10:30 ENTRY DATE: JAN 25, 2024@10:30:47 AUTHOR: DEBBY MOORE COSIGNER: URGENCY: STATUS: COMPLETED DEPARTMENT [facility] Telephone number: [phone] TONYLYNNE Crys DOUGHERTY [address], [address] JAN 25, 2024 Dear [place], We would like to assist you in scheduling a Stress Less Group appointment at the [place]. We have been unable to reach you by phone. To schedule this appointment please call us at ext. [phone]. Our booking appointment hours are Wednesday through [...] Your health is important to us. Sincerely, [facility] [address] [facility] [address] [place] [address] [place] [address] [phone] [facility] [address] [facility] [address] [place] [address] [place] [address] ext. [phone] [facility] [address] [address] [place] [address] ext. [phone] [facility] [address] [place] [address] ext. [phone] Special[facility] Outpatient [facility] [address] [place] [address] DEBBY MOORE
--- OUTSIDE RECORDS SUMMARY | 2024-07-31 10:44 | XMS_ITS ---
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 Date/Time Primary/Secondary Diagnosis Diagnosis Name Provider Source Mar 19, 2024 11:50 AM PRIMARY Cervicalgia MICHAEL HERNANDEZ [place] [facility] [place] [facility] Mar 19, 2024 11:50 AM SECONDARY Other low back pain MICHAEL HERNANDEZ [place] [facility] [place] [facility] Plan of Treatment: Future Appointments (+ 6 months) and Future Tests (+/- 45 days) The Plan of Treatment section includes future care activities for the patient from all [place] treatmentfacilities. This section includes future appointments and [...] AMBULATORY - PSYCHIATRY [facility] [place] [facility] Feb 02, 2024 12:30 PM AMBULATORY - MEDICINE VA C [facility] [place] [facility] Feb 10, 2024 11:15 AM AMBULATORY - REHAB MEDICIN E [facility] [place] [facility] Feb 14, 2024 09:30 AM AMBULATORY - MEDICINE [facility] C [facility] [place] [facility] Feb 14, 2024 10:00 AM AMBULATORY - MEDICINE VA C [facility] [place] [facility] Mar 01, 2024 09:00 AM AMBULATORY - PSYCHIATRY [facility] [place] [facility] Mar 02, 2024 11:00 AM AMBULATORY - MEDICINE [facility] C [facility] [place] [facility] Mar 13, 2024 08:00 AM AMBULATORY - MEDICINE [facility] [place] [facility] Mar 15, 2024 10:30 AM AMBULATORY - MEDICINE [facility] C [facility] [place] [facility] Mar 20, 2024 10:00 AM AMBULATORY - MEDICINE [facility] C [facility] [place] [facility] Mar 22, 2024 10:45 AM AMBULATORY - MEDICINE [facility] [place] [facility] Mar 22, 2024 11:00 AM AMBULATORY - PSYCHIATRY [facility] [place] [facility] Mar 28, 2024 09:00 AM AMBULATORY - PSYCHIATRY [facility] [place] [facility] Mar 29, 2024 09:00 AM AMBULATORY - MEDICINE [facility] [place] [facility] Mar 30, 2024 09:00 AM AMBULATORY - MEDICINE [facility] [place] [facility] Apr 12, 2024 11:00 AM AMBULATORY - MEDICINE [facility] [place] [facility] Apr 14, 2024 08:30 AM AMBULATORY - MEDICINE [facility] C [facility] [place] [facility] Apr 18, 2024 08:00 AM AMBULATORY - MEDICINE VA C [facility] [place] [facility] Apr 19, 2024 01:00 PM AMBULATORY - MEDICINE VA C [facility] [place] [facility] Apr 24, 2024 11:00 AM AMBULATORY [facility] Active, Pending, and Scheduled Orders This section includes a listing of several types of active, pending, and scheduled orders, including clinic medications orders, diagnostic test orders, procedure orders and consult orders; where the start date of the order is 45 days before the date of the Encounter or 45 days after the date of theEncounter. The data comes from all [place] treatment facilities. Test Date/Time Test Type Test Details Facility Name December 23, 2023 12:00 AM Laboratory - Chemistry Order LIPID PANEL FASTING BLOOD (SST-SERUM) [facility] [place] [facility] Jan 06, 2024 12:00 AM Laboratory - Chemistry Order OCCULT BLOOD FIT X1 SCREEN(IN-HOUSE) STOOL FECES SP [place] [facility] [place] [facility] Jan 19, 2024 12:00 AM Laboratory - Chemistry Order HEMOGLOBIN A1C PANEL BLOOD (LAV-BLOOD) [facility] [place] [facility] Jan 19, 2024 12:00 AM Laboratory - Chemistry Order BASIC METABOLIC PANEL (non-fasting) BLOOD (SST-SERUM) [facility] [place] [facility] Jan 19, 2024 12:00 AM Laboratory - Chemistry Order TSH [facility]LO[facility] (SST[facility]SERUM) [facility] [place] [facility] Jan 19, 2024 12:00 AM Laboratory - Chemistry Order LIVER FUNCTION BLOOD (SST-SERUM) SP [facility] Jan 19, 2024 12:00 AM Laboratory - Chemistry Order CBC AND DIFF (AUTO) BLOOD (LAV-BLOOD) SP [facility] Jan 19, 2024 12:00 AM Laboratory - Chemistry Order LIPID PANEL, NON FASTING BLOOD (SST-SERUM) [facility] Social History: Smoking Status (Most current) [...] Encounter. 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 Service Connected Disabilities with % Eligibility: Active Problem Exposure to potentially hazardous s 09/23/2023 ALISHA DAVISON Cervical radiculopathy M54.12 08/12/2023 MARIBEL SHAFER Tinnitus H93.19, Onset 05/31/2023November,BERTO Johnson Pain R52., Onset 05/31/2023NovemberBERTO Anxiety F41.9, Onset 09/04/2021NovemberBERTO Benign prostatic hyperplasia N40.1, 06/16/2023 NALLELY DOE Past Surgeries: [facility] with report of decr back pain after last visit for a couple of days Drive of an hour exacerbated the sx Patient C/O neck pain into upper trapezii and low back pain He rates the pain 7/10 . Pain in low back, neck and shoulders. Vet also went to [facility] again Wednesday which aggravated the pain again. Patient is scheduled for Gerofit but plans to call and cx due to incr pain. He sates that this morning he oversletp and did not have time to adequately warm up his body by moving enough. Vet states that he has ignored the pain for quite a while. Palliative: massage one hour, acupuncture short term relief Provocative: standing on a grocery line; sitting >30 minutes Timing: worse in am Prior treatment: Physical therapy at [facility]; deep tissue massage; [place] [facility].. neck therapy, massage; cortisone injections in low back R shoulder Exercise/Activities: none except yard work, stretching ; and going for a walk which is getting more difficult. He states that he is under a lot of stress. His is waiting for a liver transplant. Going to [place] for [employer]. Reviewed Radiologist's reports: none found [facility] MRI L/Sp Patient denies bowel/bladder dysfunction saddle anesthesia, recent fevers, infections, night sweats, unexplained weight loss, dysphagia, dysarthria, numbness, diploplia Patient's PCP is Nallely Munguia. Followed by Pain Clinic GOALS: spend better quality time w family; [...] Supine gluteal stretching as per palpation Objectives 02/01/24: Hypertonic Cervical, thoracic, lumbar paraspnal mm, bilat Restrictions cervical, thoracic, lumbar Treatment: active/corrective Manual therapy 8 min MFR lumbar and cervical F/D mechanical lumbar traction w flex and lat bending, 8 min CMT low force AT cervical CMT lumbar side posture Instructed patient in gentle ROM stretches for his neck. He performed well and felt gentle stretch Treatment carried out today and well tolerated. [...] and avoidance of aggravating factors. Self-Care Recommendations: Discussed and recommended [facility] Billing Representative to which patient agreed. Avoid prolonged sitting; Encouraged patient to perform breathing exercises that he learned in [facility]. He states that he may need assistance [...] balance, and pain modulation. Plan: Trial Chiro; consult [facility] men's swim coach and PT Visit 4/5 F/U 4 weekly Seek urgent care as needed. CMT: chiropractic manipulative therapy SMT: Spinal Manipulative Therapy F/D: Flexion Distraction MFR: Myofascial Release S-I: Sacroiliac MFTP: Myofascial Trigger Point NRS: Numeric Rating Scale N/T: Numbness/Tingling PIR: Post isometric relaxation /es/ MICHAEL HERNANDEZ D.C. CHIROPRACTOR Signed: 02/01/2024 10:23 MICHAEL HERNANDEZ [facility]L [facility]
--- OUTSIDE RECORDS SUMMARY | 2024-07-31 10:44 | XMS_ITS ---
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 Date/Time Encounter Type Encounter Description Reason Provider Source Feb 14, 2024 09:30 AM MANUAL THERAPY 1/> [facility] ICD-10-CM M54.59 Other low back pain EUSEBIA LAWTON [place] Encounter Template Text not used by [place] Assessments - Encounter Diagnoses This section includes the primary and secondary diagnoses documented for the Encounter. Date/Time Primary/Secondary Diagnosis Diagnosis Name Provider Source Mar 15, 2024 11:49 AM PRIMARY Other low back pain EUSEBIA LAWTON [place] [facility] [facility] Plan of Treatment: Future Appointments (+ 6 months) and Future Tests (+/- 45 days) The Plan of Treatment section includes future care activities for the patient from all [place] treatmentfacilities. This section includes future appointments and [...] 20, 2024 10:00 AM AMBULATORY - MEDICINE [place] C [facility] [place] [facility] AMBULATORY - MEDICINE [place] C [facility] [place] [facility] Apr 14, 2024 08:30 AM AMBULATORY - MEDICINE [place] [facility] [facility] [place] [facility] May 02, 2024 02:00 PM AMBULATORY - MEDICINE [place] [facility] [place] [facility] May 02, 2024 02:30 PM AMBULATORY - MEDICINE [place] C [facility] [facility] STOOL FECES [facility] [place] [facility] Jan 19, 2024 12:00 AM Laboratory - Chemistry Order HEMOGLOBIN A1C PANEL BLOOD (LAV-BLOOD) [facility] [place] [facility] Jan 19, 2024 12:00 AM Laboratory - Chemistry Order BASIC METABOLIC PANEL (non-fasting) BLOOD (SST-SERUM) [place] [facility] [place] [facility] Jan 19, 2024 12:00 AM Laboratory - Chemistry Order TSH BLOOD (SST-SERUM) [facility] [place] [facility] Jan 19, 2024 12:00 AM Laboratory - Chemistry Order LIVER FUNCTION BLOOD (SST-SERUM) [facility] [place] [facility] Jan 19, 2024 12:00 AM Laboratory - Chemistry Order CBC AND DIFF (AUTO) BLOOD (LAV-BLOOD) [facility] Jan 19, 2024 12:00 AM Laboratory - Chemistry Order LIPID PANEL, NON FASTING BLOOD (SST-SERUM) SP [facility] Mar 29, 2024 09:37 AM Consult Order COMMUNITY CARE-COLONOSCOPY SURVEILLANCE Cons Vice President & General Manager [employer] [facility] Social History: Smoking Status (Most current) [...] 2021 02:56 PM VA-TOBACCO NEVER USED [facility] Encounter Notes: All associated encounter notes This section contains the clinical notes associated to the Encounter. Date/Time Encounter Note(s) Provider Source Feb 14, 2024 09:25 AM PHYSICAL THERAPY N OTE: LOCAL TITLE: PHYSICAL THERAPY STANDARD TITLE: PHYSICAL THERAPY NOTE DATE OF NOTE: FEB 14, 2024@09:25 ENTRY DATE: FEB 14, 2024@09:25:50 AUTHOR: EUSEBIA LAWTON EXP COSIGNER: URGENCY: STATUS: COMPLETED Initial Evaluation date: 02/10/2024 Treatment #: 2 Treatment time: 30 Diagnosis: Other low back pain(ICD-10-CM M54.59) Provider: Dr. Roth PT Treatment Precautions: Pt. identified by full name and . Active problems - Computerized Problem List is the source for the followin. Exposure to potentially hazardous substance 2. Cervical radiculopathy 3. Tinnitus 4. Pain 5. Anxiety 6. Benign prostatic hyperplasia TREATMENT PRECAUTIONS OR DAILY INSTRUCTIONS: (Vitals, surgical precautions etc.) SUBJECTIVE: Ed denies any changes since our visit last week. He didn't access his HEP yet, plans to go to the [employer] [place] this week weather permitting. Pain, verbal numeric scale 0-10: 5-6/10 OBJECTIVE: THERAPEUTIC EXERCISE: MINUTES: 15 Elevated HOB with wedge and H/L: pelvic tilt, 2x10 reps Elevated HOB with wedge and H/L: LTR, 2x10 reps Review of HEP: seated piriformis, seated hamstring stretch Reviewed water exercises to trial: marches, sidestep, step forward/back MANUAL THERAPY: MINUTES: 15 Hip PROM Passive glute, piriformis, and hamstring stretches Gentle LAD bilaterally GAIT TRAINING: MINUTES: NEUROMUSCULAR EDUCATION: MINUTES: OTHER: MINUTES: MODALITIES: MINUTES: [] Contraindication screen completed prior to modality [] Skin intact pre/post SELF CARE/EDUCATION: MINUTES: ED/TRAIN SELF-MGMT NONPHY MINUTES: ASSESSMENT: Ed tolerated today's session well with no c/o increased pain. He was encouraged to begin his gentle HEP, discussed importance of consistent home practice to make progress. PLAN: Continue with plan of care and HEP as prescribed. Interventions to include: Manual therapy (PRN): stm, MET's, myofascial release Aerobic exercise: Nustep, graded activity Therex: LB and LE flexibility, gentle progressive core, diaphragmatic breathing Education: PNE, posture, ergo, bodymechanics, relaxation techniques, graded activity for aerobic exercise Update [employer] HEP as indicated [Access Code: [email or web address]] [employer] Access Code: [email or web address] Patient education was provided for all aspects of care during this clinical encounter. /monisha/ EUSEBIA LAWTON DPT PHYSICAL THERAPIST Signed: 02/14/2024 17:27 EUSEBIA LAWTON [place] [facility]
--- OUTSIDE RECORDS SUMMARY | 2024-07-31 10:44 | XMS_ITS ---
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 Date/Time Encounter Type Encounter Description Reason Provider Source Feb 02, 2024 12:30 PM ACUPUNCT W/O STIMUL 15 MIN CI TREATMENT ICD-10-CM M54.2 Cervicalgia JAMES WONG IHE Encounter Template Text not used by [place] Assessments - Encounter Diagnoses This section includes the primary and secondary diagnoses documented for the Encounter. Date/Time Primary/Secondary Diagnosis Diagnosis Name Provider Source Mar 19, 2024 07:33 AM PRIMARY Cervicalgia JAMES WONG [place] [facility] [facility] Plan of Treatment: Future Appointments (+ 6 months) and Future Tests (+/- 45 days) The Plan of Treatment section includes future care activities for the patient from all [place] [facility]. This section includes future appointments and [...] REHAB MEDICIN E [place] [facility] [facility] Feb 14, 2024 09:30 AM AMBULATORY - MEDICINE [place] C [facility] [place] [facility] Feb 14, 2024 10:00 AM AMBULATORY - MEDICINE RI C [facility] [place] [facility] Mar 01, 2024 09:00 AM AMBULATORY - PSYCHIATRY [place] [facility] [facility] Mar 02, 2024 11:00 AM AMBULATORY - MEDICINE RI C [facility] [place] [facility] Mar 13, 2024 08:00 AM AMBULATORY - MEDICINE VA C [facility] [place] [facility] Mar 15, 2024 10:30 AM AMBULATORY - MEDICINE VA C [facility] [place] [facility] Mar 20, 2024 10:00 AM AMBULATORY - MEDICINE VA C [facility] [place] [facility] Mar 22, 2024 10:45 AM AMBULATORY - MEDICINE RI C [facility] [place] [facility] Mar 22, 2024 11:00 AM AMBULATORY - PSYCHIATRY [place] [facility] [facility] Mar 28, 2024 09:00 AM AMBULATORY - PSYCHIATRY [place] [facility] [place] [facility] Mar 29, 2024 09:00 AM AMBULATORY - MEDICINE VA C [facility] [place] [facility] Mar 30, 2024 09:00 AM AMBULATORY - MEDICINE VA C [facility] [place] [facility] Apr 12, 2024 11:00 AM AMBULATORY - MEDICINE VA C [facility] [place] [facility] Apr 14, 2024 08:30 AM AMBULATORY - MEDICINE VA C [facility] [place] [facility] Apr 18, 2024 08:00 AM AMBULATORY - MEDICINE VA C [facility] [place] [facility] Apr 19, 2024 01:00 PM AMBULATORY - MEDICINE VA C [facility] [place] [facility] Apr 24, 2024 11:00 AM AMBULATORY - PSYCHIATRY [place] [facility] [place] [facility] Apr 24, 2024 01:00 PM AMBULATORY - MEDICINE VA C [facility] [place] [facility] Apr 26, 2024 01:00 PM AMBULATORY - MEDICINE RI C NTRL [place] [facility] Active, Pending, and Scheduled Orders This section [...] [facility] [place] [facility] Jan 06, 2024 12:00 AM Laboratory - Chemistry Order OCCULT BLOOD FIT X1 SCREEN(IN-HOUSE) STOOL FECES [facility]L [facility] [place] [facility] Jan 19, 2024 12:00 AM Laboratory - Chemistry Order HEMOGLOBIN A1C PANEL BLOOD (LAV-BLOOD) [place] [facility] [facility] Jan 19, 2024 12:00 AM Laboratory - Chemistry Order BASIC METABOLIC PANEL (non-fasting) BLOOD (SST-SERUM) [place] [facility] [place] [facility] Jan 19, 2024 12:00 AM Laboratory - Chemistry Order LIVER FUNCTION BLOOD (SST-SERUM) [place] [facility] [place] [facility] Jan 19, 2024 12:00 AM Laboratory - Chemistry Order TSH BLOOD (SST-SERUM) SP [facility] Jan 19, 2024 12:00 AM Laboratory - Chemistry Order CBC AND DIFF (AUTO) BLOOD (LAV-BLOOD) [facility] Jan 19, 2024 12:00 AM Laboratory - Chemistry Order LIPID PANEL, NON FASTING BLOOD (SST-SERUM) [facility] Social History: Smoking Status (Most current) [...] 04, 2021 02:56 PM VA-TOBACCO NEVER USED [facility] Encounter Notes: All associated encounter notes This section contains the clinical notes associated to the Encounter. Date/Time Encounter Note(s) Provider Source Feb 02, 2024 03:25 PM PRIMARY CARE NOTE: LOCAL TITLE: [place] ACUPUNCTURE NOTE STANDARD TITLE: PRIMARY CARE NOTE DATE OF NOTE: FEB 02, 2024@15:25 ENTRY DATE: FEB 02, 2024@15:25:59 AUTHOR: SCOT WONG COSIGNER: URGENCY: STATUS: COMPLETED Follow up visit [place] Acupuncture/[place] Acupressure was the only treatment given. Patient was evaluated and agreed to receive [place] Acupuncture (BFA). Patient was evaluated and agreed to receive [place] Acupuncture Protocol (BFA)/[place] Acupressure (BAA) for the following pain condition(s): Comment: Neck / Shoulder pain Pre BFA/BAA Numeric Pain Rating Scale [...] Rating Scale: number from 0-10: 5 Standard [id number] time for application of BFA/BAA protocol is 15 minutes. No electrical stimulation was used. /monisha/ SCOT WONG LA.C, DIPL.AC ELECTRIC STOVE MECHANIC Signed: 02/02/2024 15:27 SCOT WONG [place] CN[facility]L [facility]
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
--- OUTSIDE RECORDS SUMMARY | 2024-07-31 10:45 | XMS_ITS | Encounter Summary ---
Author Name [facility] [place] [facility] [place] [facility] [place] Address [address] [place] [id number] Care Team Providers Care Crm Marketing Specialist Name Role Phone MELBA DOE Primary [...] PART B Feb 24, 2020 PART B [id number] STAR DOUGHERTY JR PATIENT MEDICARE (WNR) MEDICARE (M) PART A November 24, 2019 PART A [id number] DOUGHERTY STAR COLEMAN PATIENT OFFICE OF REGIONAL PROFILE TRIMMER NO-FAULT INSURANCE NO FAULT May 12, 2022 NO FAULT [id number] STAR DOUGHERTY JR PATIENT FOR LIFE TFL* Feb 24, 2020 [id number] STAR DOUGHERTY JR PATIENT [facility] (WNR) TRICA RE(WN R) Jul 26, 2017 (WNR) [id number] ROSALES DOUGHERTY PATIENT Selected Encounter This section includes the information on record at [place] for the Encounter. Date/Time Encounter Type Encounter Description Reason Provider Source Jun 06, 2024 01:00 PM SELF-MGMT EDUC/TRAIN 5-8 PT PAIN CLINIC ICD-10-CM G89.4 Chronic pain syndrome CLARA ROJAS Carlin Encounter Template Text not used by [place] Assessments - Encounter Diagnoses This section includes the primary and secondary diagnoses documented for the Encounter. Date/Time Primary/Secondary Diagnosis Diagnosis Name Provider Source Jun 06, 2024 03:31 PM PRIMARY Chronic pain syndrome CLARA ROJAS [place] [facility] Plan of Treatment: Future Appointments (+ 6 months) and Future Tests (+/- 45 days) The Plan of Treatment section includes future care activities for the [facility] [place] [facility]. This section includes future appointments and future orders which are active, pending or scheduled. Future Appointments This section includes appointments that were scheduled to occur 6 months from the date of the Encounter, up to a maximum of 20 appointments. The data comes from all [place] treatment facilities. Appointment Date/Time Appointment Type Appointme nt Facility Name Jun 13, 2024 01:00 PM AMBULATORY - MEDICINE [facility] [place] [facility] Jun 14, 2024 11:00 AM AMBULATORY - MEDICINE [facility] [place] [facility] Jun 20, 2024 11:00 AM AMBULATORY - PSYCHIATRY [facility] [place] [facility] Jun 20, 2024 01:00 PM AMBULATORY - MEDICINE [facility] [place] [facility] Jun 27, 2024 01:00 PM AMBULATORY - MEDICINE [facility] [place] [facility] Jul 04, 2024 01:00 PM AM[facility]ULATORY [facility] MEDICINE [facility] [place] [facility] Jul 05, 2024 01:00 PM AMBULATORY - MEDICINE [facility] [place] [facility] Jul 10, 2024 08:30 AM AMBULATORY - MEDICINE [facility] [place] [facility] Jul 11, 2024 03:00 PM AMBULATORY - PSYCHIATRY [facility] [place] Jul 31, 2024 10:30 AM AMBULATORY - NONE [facility] [place] [facility] Aug 01, 2024 08:45 AM AMBULATORY - MEDICINE [facility] [place] [facility] Aug 01, 2024 09:00 AM AMBULATORY - MEDICINE [facility] [place] [facility] Aug 01, 2024 01:00 PM AMBULATORY [facility] Aug 08, 2024 01:00 PM AMBULATORY - MEDICINE [facility] Aug 09, 2024 10:30 AM [facility] Aug 15, 2024 10:00 AM AMBULATORY - MEDICINE [facility] Sep 14, 2024 11:30 AM AMBULATORY - MEDICINE [facility] Active, Pending, and Scheduled Orders [...] Consult Order PSYCHOTHER SHERRY SWANSON/MAGED OUTPT Cons R D Intern's Choice [facility] Lab Results: +/- 30 [...] Result - Unit Interpretation Reference Range Comment Jul 04, 2024 07:55 AM [facility] METHADONE SCREEN Specimen Type: URINE Comment: NATO test are qualitative, any L or H flags only indicate a [facility] alert was sent. Ordering Provider: KARLA LOYA Report Released Date/Time: Apr 20, 2024 08:58 AM Reporting Lab: [facility] [address] [facility] [address] Performing Lab: [facility] [address] [facility] [address] METHADONE SCREEN None detected(Nega tive) L Negative Jul 04, 2024 07:55 AM [facility] ALCOHOL, ETHYL URINE PANEL Specimen Type: URINE Comment: Urine with Cr <5 is diluted or substituted. Cr between 5 and 20 is very dilute. Urine with SG of 1.001 or less is diluted or substituted. SG of 1.003 or less is very dilute. Urine with a pH <3 or >11 has been adulterated and is unsuitable for testing by our current method. Urine with pH between 3 and 4 OR 10 and 11 may have been adulterated. Ordering Provider: KARLA LOYA Report Released Date/Time: Apr 20, 2024 08:58 AM Reporting Lab: [address] [address] Performing Lab: [address] [address] ALCOHOL, ETHYL URINE NONE-DETECTED mg/dL NONE-DETEC NBA, cutoff = 10 mg/dL PH, NATO 5.4 [pH] 4-10 CREATININE, NATO 123.15 mg/dL >20 SP.GRAVITY, NATO 1.026 H 1.00 3-1.02 0 Jul 04, 2024 07:55 AM [facility] AMPHETAMINES SCREEN PANEL Specimen Type: URINE Comment: Urine with Cr <5 is diluted or substituted. Cr between 5 and 20 is very dilute. Urine with SG of 1.001 or less is diluted or substituted. SG of 1.003 or less is very dilute. Urine with a pH <3 or >11 has been adulterated and is unsuitable for testing by our current method. Urine with pH between 3 and 4 OR 10 and 11 may have been adulterated. Ordering Provider: KARLA LOYA Report Released Date/Time: Apr 20, 2024 08:58 AM Reporting Lab: [address] [address] Performing Lab: [address] [address] AMPHETAMINES SCREEN NONE-DETECTED None-Detec nba, Cutoff = 1000 ng/mL PH, NATO 5.4 [pH] 4-10 CREATININE, NATO 123.15 mg/dL >20 SP.GRAVITY, NATO 1.026 H 1.00 3-1.02 0 Jul 04, 2024 07:55 AM [facility] FENTANYL SCREEN PANEL Specimen Type: URINE Comment: Urine with Cr <5 is diluted or substituted. Cr between 5 and 20 is very dilute. Urine with SG of 1.001 or less is diluted or substituted. SG of 1.003 or less is very dilute. Urine with a pH <3 or >11 has been adulterated and is unsuitable for testing by our current method. Urine with pH between 3 and 4 OR 10 and 11 may have been adulterated. FENTANYL CONFIRMATION NOT SENT BY LAB. Ordering Provider: KARLA LOYA Report Released Date/Time: Apr 20, 2024 08:58 AM Reporting Lab: [address] [address] Performing Lab: [address] [address] FENTANYL SCREEN NONE-DETECTE D ng/mL Negative: Cutoff = 1.00 ng/mL PH, NATO 5.4 [pH] 4-10 CREATININE, NATO 123.70 mg/dL >20 SP.GRAVITY, NATO 1.026 H 1.00 3-1.02 0 Jul 04, 2024 07:55 AM [facility] BUPRENORPHINE SCREEN PANEL Specimen Type: URINE Comment: Urine with Cr <5 is diluted or substituted. Cr between 5 and 20 is very dilute. Urine with SG of 1.001 or less is diluted or substituted. SG of 1.003 or less is very dilute. Urine with a pH <3 or >11 has been adulterated and is unsuitable for testing by our current method. Urine with pH between 3 and 4 OR 10 and 11 may have been adulterated. Ordering Provider: KARLA LOYA Report Released Date/Time: Apr 20, 2024 08:58 AM Reporting Lab: [address] [address] Performing Lab: [address] [address] BUPRENORPHINE (URINE) NONE-DETECTED None Detected, Cutoff = 10.0 ng/mL PH, NATO 5.4 [pH] 4-10 CREATININE, NATO 123.15 mg/dL >20 SP.GRAVITY, NATO 1.026 H 1.00 3-1.02 0 Jul 04, 2024 07:55 AM [facility] BENZODIAZEPINES SCREEN PANEL Specimen Type: URINE Comment: Urine with Cr <5 is diluted or substituted. Cr between 5 and 20 is very dilute. Urine with SG of 1.001 or less is diluted or substituted. SG of 1.003 or less is very dilute. Urine with a pH <3 or >11 has been adulterated and is unsuitable for testing by our current method. Urine with pH between 3 and 4 OR 10 and 11 may have been adulterated. Ordering Provider: KARLA LOYA Report Released Date/Time: Apr 20, 2024 08:58 AM Reporting Lab: [address] [address] Performing Lab: [address] [address] BENZODIAZEPINES SCREEN NONE-DETECTED None-Detec nba, Cutoff = 200 ng/mL PH, NATO 5.4 [pH] 4-10 CREATININE, NATO 123.15 mg/dL >20 SP.GRAVITY, NATO 1.026 H 1.00 3-1.02 0 Jul 04, 2024 07:55 AM [facility] CANNABINOIDS SCREEN PANEL Specimen Type: URINE Comment: Urine with Cr <5 is diluted or substituted. Cr between 5 and 20 is very dilute. Urine with SG of 1.001 or less is diluted or substituted. SG of 1.003 or less is very dilute. Urine with a pH <3 or >11 has been adulterated and is unsuitable for testing by our current method. Urine with pH between 3 and 4 OR 10 and 11 may have been adulterated. Ordering Provider: KARLA LOYA Report Released Date/Time: Apr 20, 2024 08:58 AM Reporting Lab: [address] [address] Performing Lab: [address] [address] CANNABINOIDS SCREEN NONE-DETECTED None-Detec nba,Cutoff = 50 ng/mL PH, NATO 5.4 [pH] 4-10 CREATININE, NATO 123.15 mg/dL >20 SP.GRAVITY, NATO 1.026 H 1.00 3-1.02 0 Jul 04, 2024 07:55 AM [facility] COCAINE SCREEN PANEL Specimen Type: URINE Comment: Urine with Cr <5 is diluted or substituted. Cr between 5 and 20 is very dilute. Urine with SG of 1.001 or less is diluted or substituted. SG of 1.003 or less is very dilute. Urine with a pH <3 or >11 has been adulterated and is unsuitable for testing by our current method. Urine with pH between 3 and 4 OR 10 and 11 may have been adulterated. Ordering Provider: KARLA LOYA Report Released Date/Time: Apr 20, 2024 08:58 AM Reporting Lab: [address] [address] Performing Lab: [address] [address] COCAINE SCREEN NONE-DETECTED N one-Detec nba,Cutoff = 300 ng/mL PH, NATO 5.4 [pH] 4-10 CREATININE, NATO 123.15 mg/dL >20 SP.GRAVITY, NATO 1.026 H 1.00 3-1.02 0 Jul 04, 2024 07:55 AM [facility] OPIATES SCREEN PANEL Specimen Type: URINE Comment: Urine with Cr <5 is diluted or substituted. Cr between 5 and 20 is very dilute. Urine with SG of 1.001 or less is diluted or substituted. SG of 1.003 or less is very dilute. Urine with a pH <3 or >11 has been adulterated and is unsuitable for testing by our current method. Urine with pH between 3 and 4 OR 10 and 11 may have been adulterated. Ordering Provider: KARLA LOYA Report Released Date/Time: Apr 20, 2024 08:58 AM Reporting Lab: [address] [address] Performing Lab: [address] [address] OPIATES SCREEN NONE-DETECTED N one-Detec nba, Cutoff = 300 ng/mL PH, NATO 5.4 [pH] 4-10 CREATININE, NATO 123.15 mg/dL >20 SP.GRAVITY, NATO 1.026 H 1.00 3-1.02 0 Jul 04, 2024 07:55 AM [facility] OXYCODONE SCREEN PANEL Specimen Type: URINE Comment: Urine with Cr <5 is diluted or substituted. Cr between 5 and 20 is very dilute. Urine with SG of 1.001 or less is diluted or substituted. SG of 1.003 or less is very dilute. Urine with a pH <3 or >11 has been adulterated and is unsuitable for testing by our current method. Urine with pH between 3 and 4 OR 10 and 11 may have been adulterated. Ordering Provider: KARLA LOYA Report Released Date/Time: Apr 20, 2024 08:58 AM Reporting Lab: [address] [address] Performing Lab: [address] [address] OXYCODONE SCREEN NONE-DETECTED None-Detec nba, Cutoff = 100 ng/mL PH, NATO 5.4 [pH] 4-10 CREATININE, NATO 123.15 mg/dL >20 SP.GRAVITY, NATO 1.026 H 1.00 3-1.02 0 Jul 04, 2024 07:51 AM [facility] [id number] PGx Specimen Type: BLOOD Comment: shipped on manifest [id number] Ordering Provider: ALYSHA MOY Report Released Date/Time: Apr 24, 2024 12:11 PM Reporting Lab: [address] [address] Performing Lab: [facility] [address] [facility] [address] [id number] PGx comment Jul 04, 2024 07:51 AM [facility] LIVER FUNCTION Specimen Type: SERUM No comment entered. Ordering Provider: MELBA DOE Report Released Date/Time: Jan 06, 2024 03:34 PM Reporting Lab: [address] [place] [address] Performing Lab: [address] [address] PROTEIN,TOTAL 6.8 g/dL 6.0-8.3 ALBUMIN 4.2 g/dL 3.5-5.0 ALKALINE PHOSPHATASE 84 U/L 40-150 AST 19 U/L 5-34 ALT 27 U/L BILIRUBIN, TOTAL 0.3 mg/dL 0.2-1.2 Jul 04, 2024 07:51 AM [facility] BASIC METABOLIC PANEL (fasting) Specimen Type: SERUM No comment entered. Ordering Provider: MELBA DOE Report Released Date/Time: Jan 06, 2024 03:34 PM Reporting Lab: [address] [address] Performing Lab: [address] [address] UREA NITROGEN 13 mg/dL 7-25 GLUCOSE 123 mg/dL H 65-100 SODIUM 138 mmol/L 135-145 POTASSIUM 4.7 mmol/L 3.5-5.0 CHLORIDE 103 mmol/L 100-110 CO2 27 meq/L 20-30 CREATININE, Serum 0.93 mg/dL 0.50-1.40 eGFR(CKD-EPI 2020) 89 mL/min >60 Jul 04, 2024 07:51 AM [facility] CBC Specimen Type: BLOOD No comment entered. Ordering Provider: MELBA DOE Report Released Date/Time: Jan 06, 2024 03:34 PM Reporting Lab: [address] [address] Performing Lab: [address] [address] WBC 6.85 10*3/uL 4.50-11.00 RBC 4.76 10*6/uL 4.23-5.66 HGB 15.1 g/dL 12.8-17 HCT 43.9 39.2-50.4 MCV 92.2 fL 82-99 MCHC 34.4 g/dL 30.8-35.1 PLT 248 10*3/uL 140-360 RDW-CV 12.4 12.0-16.0 MCH 31.7 pg 26.2-32.6 Social History: Smoking Status (Most [...] 04, 2021 02:56 PM VA-TOBACCO NEVER USED [place] [facility] [place] [facility] Encounter Notes: All associated encounter notes This section contains the clinical notes associated to the Encounter. Date/Time Encounter Note(s) Provider Source Jun 06, 2024 03:27 PM PHYSICAL THERAPY NOTE: LOCAL TITLE: ACTIVE INTERDISCIPLINARY SESSION NOTE STANDARD TITLE: PHYSICAL THERAPY NOTE DATE OF NOTE: JUN 06, 2024@15:27 ENTRY DATE: JUN 06, 2024@15:27:05 AUTHOR: CLARA ROJAS EXP COSIGNER: URGENCY: STATUS: COMPLETED ACTIVE INTERDISCIPLINARY SESSION NOTE Has ADDENDA AMP Interdisciplinary Group Parent Note: Session 1 AMP Provider/s facilitating todays session: Psychologist: Clara Rojas, Ph.D. Physical Therapist: Cris Lawton PT, DPT Length of session: 120 minutes* *Both behavioral health and physical therapy providers were engaged in integrated care and session facilitation during the entirety of this encounter. Reason for visit: Participation in the Active Management of Pain (AMP) Program Summary of AMP: The AMP program is an 8 session, small group program that integrates the disciplines of behavioral health and physical therapy. It seeks to train Veterans struggling with chronic pain in fundamental pain self- management strategies that help them manage those aspects of pain that are within their control, and better engage those aspects of life that are meaningful to the participant. Prior to the AMP program this [place] confirmed their willingness and interest in participating in this small group, interdisciplinary, pain self-management program. This has acknowledged awareness and acceptance of: 1. The privacy restraints regarding participation in small group sessions. 2. The need for respectful behavior toward other participants and providers. 3. The need to focus discussion to specific topics discussed during the session. 4. The limitations to individualization of care during sessions. informed that individualized breakout sessions can be provided as deemed necessary by the AMP provider or as requested by the [place]. Number of Veterans in attendance for todays session: 5 Summary of Session 1: Behavioral Health and Physical Therapy providers co-facilitated this first AMP session. Session started with introductions, and with a review of AMP group rules, which include the limits of confidentiality, attendance and behavioral expectations. An overview of AMP was provided, including information on treatment duration, session structure, and home practice expectations. The 7 Principles of Change were also introduced. Pain Neuroscience Education was provided and participants engaged in a self-assessment exercise focused on the impact of pain in their life. The tubs and faucets metaphor was introduced to discuss how pain and pain-related stress can overwhelm the nervous system; examples of this were presented. Mindful Awareness was introduced as a skill that can be used to reduce the flow of the faucets and drain the tubs to keep them from overflowing. The goal of mindful awareness as well as its benefits were discussed. A brief mindful breathing exercise was guided and discussed with participants. Session ended with a review of take-home points and home practice expectations, including assigned worksheets. Plan: to follow up for session 2 of the AMP program. Further details regarding this session can be found in the attached notes for each discipline. /monisha/ CLARA ROJAS, PH.D. CLINICAL HEALTH PSYCHOLOGIST Signed: 06/06/2024 15:32 06/06/2024 ADDENDUM STATUS: COMPLETED Active Behavioral Health Session Note AMP Interdisciplinary Group Session: 1 ======== Please see the session summary portion of today's AMP Interdisciplinary Parent Note for details describing the content, strategies, and skills taught during today's session. Assessment/Plan: [N/A] Did the [place] confirm completion (showed worksheets, returned, or verbally) of the home practice work sheets from the previous session? If applicable, please describe the barriers the communicated to completing the previous session's worksheets: [Yes] [place] was an active participant and provided relevant and on topic contributions during today's session. [Yes] The suicide and homicide risk were determined to be low for this [place] during today's session. [Yes] No other acute psychological distress was observed for this [place] during today's session. [Yes] Continue with AMP upcoming treatment sessions. [Yes] Additional actions/recommendations are needed for this participating : had to leave session early and will need a make-up session to provide education on the Tubs and Faucets and Mindful Awareness. /es/ CLARA ROJAS, PH.D. CLINICAL HEALTH PSYCHOLOGIST Signed: 06/07/2024 11:39 06/07/2024 ADDENDUM STATUS: COMPLETED Physical Therapy Note AMP Interdisciplinary Group Session: 1 ======== Please see the session summary portion of [facility] AMP Interdisciplinary Note for details describing the content, strategies, and skills taught during today session. Assessment/Plan: [N/A] Did the require any suggestions for modifications from the AMP PT to specific skills/strategies performed as part of their home practice since last session? If yes, please describe: [NO] Did specific issues of concern or barriers to participation regarding this come up during today session? If yes, these concerns are detailed here: [YES] This [place] verbalized and/or demonstrated understanding in the content, strategies, and skills as described in the session summary portion of this sessions AMP Interdisciplinary Note. [YES] This verbalized understanding of expected home practice to be performed between todays session and the next AMP session. [X] Continue with AMP upcoming treatment sessions. [X] Additional comments: Ed engaged throughout the session. He identified a connection between his stress and pain. Unfortunately, he had to leave early and will need a make-up session to review the remaining session content (PNE, Tubs & Faucets). /monisha/ CRIS LAWTON DPT PHYSICAL THERAPIST Signed: 06/07/2024 22:57 CLARA ROJAS [facility] Jun 06, 2024 03:14 PM PAIN NOTE: LOCAL TITLE: PMOP PAIN MEASURE STANDARD TITLE: PAIN NOTE DATE OF NOTE: JUN 06, 2024@15:14:24 ENTRY DATE: JUN 06, 2024@15:14:24 AUTHOR: CLARA ROJAS EXP COSIGNER: URGENCY: STATUS: COMPLETED Patient prescreened ahead of appointment. No further actions are needed. Assessments were sent to the via text/email. These assessments were completed by STAR DOUGHERTY JR on their own device on 06/06/2024 2:38:07 PM. PATIENT HEALTH QUESTIONNAIRE-2 (PHQ-2) Patient reported being bothered by the following over the last 2 weeks: 1. Little interest or pleasure: Several days 2. Feeling down, depressed or hopeless: Several days PHQ-2 score = 2 PHQ-2 result = NEGATIVE PHQ-2 scores range from 0 to 6. The screening result is considered positive if the score >= 3. PHQ-2 Total Score (past 180 days): 06/06/2024 2 01/06/2024 0 PHQ-2 Screen (past 180 days): 06/06/2024 false 01/06/2024 False PAIN, ENJOYMENT OF LIFE AND GENERAL [...] activity (0=Does not interfere - 10=Completely Interferes): 7 PEG Average Score: 6 Scores are an average of the 3 items and range from 0 to 10. Higher scores represent worse pain. PEG Avg. Pain Score (past 180 days): 06/06/2024 6 01/27/2024 6 PAIN SELF EFFICACY QUESTIONNAIRE-2 (PSEQ-2) Patient's confidence rating on a scale from 0 (Not at all confident) to 6 (Completely confident) that the following can be done at present despite the pain: 1. Do some form of work: 5 2. Live a normal lifestyle: 3 PSEQ-2 Total Score: 8 Scores range from 0 to 12. Scores >= 8 reflect pain self-efficacy that is likely to be associated with meaningful functional outcomes. SLEEP QUALITY SCALE - 1 ITEM (SQS) During the past 7 days, how would you rate your sleep quality overall? 6 - Fair SQS Total score = 6 Scores range from 0 to 10, with higher scores indicating higher quality sleep. SELF-RATED HEALTH-1 ITEM (SRH) In general, would you say your health is: Good SRH Total score = 3 Scores range from 1 to 5, with higher scores indicating worse perceived health. CONCERNS ABOUT PAIN-2 ITEM (UW-CAP-2) In the past 7 days... How often did you have the thought: my pain is more than I can manage: Often How often did you think about how much it hurts: Often UW-CAP-2 Total Score (2-10) = 8 UW-CAP-2 T-score (0-100) = 61.2 Higher scores indicate higher worry about pain. GENERALIZED ANXIETY DISORDER-2 ITEM (GHULAM-2) Over the last 2 weeks, how often have you been bothered by the following problems? Feeling nervous, anxious or on edge: Nearly every day Not being able to stop or control worrying: More than half the days GHULAM-2 Total score = 5 Scores range from 0 to 6, with higher scores indicating higher levels of anxiety. WELL-BEING SIGNS V2 (WBS-V2) Over the past month (0= none of the time / 10 = all of the time), on average how often have you been: 1. Fully satisfied with how these things are goin 2. Regularly involved in things that are important to you: 4 3. Functioning your best in the most important things you do: 5 WBS-V2 Average Score = 3.67 Scores range from 0-10, with higher scores indicating better well-being. /monisha/ CLARA ROJAS, PH.D. CLINICAL HEALTH PSYCHOLOGIST Signed: 06/06/2024 15:32 CLARA ROJAS [facility]
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
--- OUTSIDE RECORDS SUMMARY | 2024-07-31 10:45 | XMS_ITS ---
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 Date/Time Encounter Type Encounter Description Reason Provider Source Mar 02, 2024 11:00 AM WELLNESS ASSESSMENT BY NONP HEALTH/[facility]LL[facility] ICD-10-CM Z71.89 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ed counseling ALEXANDER DRAKE Encounter Template Text not used by [place] Assessments - Encounter Diagnoses This section includes the primary and secondary diagnoses documented for the Encounter. Date/Time Primary/Secondary Diagnosis Diagnosis Name Provider Source Apr 01, 2024 08:23 AM PRIMARY 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ed counseling ALEXANDER DRAKE [place] [facility] [place] [facility] Plan of Treatment: Future Appointments (+ 6 months) and Future Tests (+/- 45 days) The Plan of Treatment section includes future care activities for the patient from all [place] [facility] This section includes future appointments and [...] MEDICINE [facility] [place] [facility] Mar 15, 2024 10:30 AM AMBULATORY - MEDICINE [facility] [place] [facility] Mar 20, 2024 10:00 AM AMBULATORY - MEDICINE [facility] [place] [facility] Mar 22, 2024 10:45 AM AMBULATORY - MEDICINE [facility] [place] [facility] Mar 22, 2024 11:00 AM AMBULATORY - PSYCHIATRY [facility] [place] [facility] Mar 28, 2024 09:00 AM AMBULATORY - PSYCHIATRY [facility] [place] [facility] Mar 29, 2024 09:00 AM AMBULATORY - MEDICINE [facility] [place] [facility] Mar 30, 2024 09:00 AM AMBULATORY - MEDICINE [facility] [place] [facility] Apr 12, 2024 11:00 AM AMBULATORY - MEDICINE [facility] [place] [facility] Apr 14, 2024 08:30 AM AMBULATORY - MEDICINE [facility] [place] [facility] Apr 18, 2024 08:00 AM AMBULATORY - MEDICINE [facility] [place] [facility] Apr 19, 2024 01:00 PM AMBULATORY - MEDICINE [facility] [place] [facility] Apr 24, 2024 11:00 AM AMBULATORY - PSYCHIATRY [facility] [place] [facility] Apr 24, 2024 01:00 PM AMBULATORY - MEDICINE [facility] [place] [facility] Apr 26, 2024 01:00 PM AMBULATORY - MEDICINE [facility] [place] [facility] May 01, 2024 02:45 PM AMBULATORY - MEDICINE [facility] [place] [facility] May 02, 2024 02:00 PM AMBULATORY - MEDICINE [facility] [place] [facility] May 02, 2024 02:30 PM AMBULATORY - MEDICINE [place] [facility] [place] [facility] May 03, 2024 03:00 PM AMBULATORY - MEDICINE [place] [facility] [place] [facility] May 10, 2024 03:45 PM [facility]UL[facility] Active, Pending, and Scheduled Orders [...] Order HEMOGLOBIN A1C PANEL BLOOD (LAV-BLOOD) [facility] [place] [facility] Jan 19, 2024 12:00 AM Laboratory - Chemistry Order BASIC METABOLIC PANEL (non-fasting) BLOOD (SST-SERUM) [facility] [place] [facility] Jan 19, 2024 12:00 AM Laboratory - Chemistry Order LIVER FUNCTION BLOOD (SST-SERUM) [facility] [place] [facility] Jan 19, 2024 12:00 AM Laboratory - Chemistry Order TSH BLOOD (SST-SERUM) [facility] [place] [facility] Jan 19, 2024 12:00 AM Laboratory - Chemistry Order CBC AND DIFF (AUTO) BLOOD (LAV-BLOOD) [facility] [place] [facility] Jan 19, 2024 12:00 AM Laboratory - Chemistry Order LIPID PANEL, NON FASTING BLOOD (SST[facility]SERUM) [facility] Mar 29, 2024 09:37 AM Consult Order COMMUNITY CARE-COLONOSCOPY SURVEILLANCE Cons Special Procedure Technologist's [facility] [place] [facility] Social History: Smoking Status (Most [...] 04, 2021 02:56 PM [facility]ACCO [facility] Encounter Notes: All associated encounter notes This section contains the clinical notes associated to the Encounter. Date/Time Encounter Note(s) Provider Source Mar 20, 2024 10:17 AM ADDENDUM: LOCAL TITLE: Addendum STANDARD TITLE: ADDENDUM DATE OF NOTE: MAR 20, 2024@10:17:42 ENTRY DATE: MAR 20, 2024@10:17:43 AUTHOR: ALEXANDER DRAKE EXP COSIGNER: URGENCY: STATUS: COMPLETED Provider notes, patient missed today's scheduled F2F [facility] Coaching Session. Requesting [facility] to kindly call patient and offer an opportunity to reschedule appt: HIRO/IVAN/Whole Health Coaching 1 /monisha/ ALEXANDER DRAKE Whole Health Tanker Truck Driver Signed: 03/20/2024 10:18 Receipt Acknowledged By: 03/20/2024 15:28 /monisha/ ROCIO ROBERTS [address] [place] 03/21/2024 08:15 /monisha/ JONATHAN MARI [address] [place] --- Original Document --- 03/02/24 HEALTH AND WELLNESS COACHING: Health and Wellness Coaching HEALTH AND WELLNESS COACHING VISIT *Type of Visit: In-person *Session number: Coaching Session #2 Time spent with Creighton: 30-60 minutes Today's coaching session aligns with the Creighton's [place], Aspiration, or Purpose in the following ways: Mental well-being, physical health, family relationships. was seen for Health and Wellness Coaching related to: Working the Body Recharge Food and Drink Personal Development Family, Friends, and Co-workers Spirit and Soul Surroundings Power of the Mind PERSONAL HEALTH INVENTORY For each component below, rate yourself on a scale of 1 (LOW) to 5(HIGH) of where you are and where you would like to be: 1. MOVING THE BODY: Where are you? 2 Where would you like to be? 5 2. RECHARGE: Where are you? 2 Where would you like to be? 5 3. FOOD AND DRINK: Where are you? 3 Where would you like to be? 4. PERSONAL DEVELOPMENT: Where are you? 2 Where would you like to be? 5 5. FAMILY, FRIENDS, AND CO-WORKERS: Where are you? 2 Where would you like to be? 5 6. SPIRIT AND SOUL: Where are you? 2 Where would you like to be? 5 7. SURROUNDINGS: Where are you? 2 Where would you like to be? 5 8. POWER OF THE MIND: Where are you? 1 Where would you like to be? 5 [employer] Whole Health Long and Short-Term Whole Health Goals: TBD Short-Term Action Step: Creighton set a new S.M.A.R.T. goal of: Goal 1: Restore Set daily alarms on phone 10pm and 7:30pm. Begin routine to be in bed no later than 10pm, daily. To prep 15-30 minutes prior. Wake and start day at 7:30am. DISCUSSION: Patient was informed of confidentiality policy. WH Tanker Truck Driver and Patient reviewed and discussed [employer] [place] of Health, and mindful awareness. Completed PHI and discussed high/low areas of Self-Care. Session focused on mindfulness, values, strengths, and MAP. Patient selected focus area of Restore and developed 1st action step. Patient requested to schedule next Coaching appt. on February @ 10:00am F2F. PLAN: Patient to begin action step in focus area: Restore. Will set alarms on phone 10pm and 7:30pm. Begin routine to be in bed no later than 10pm, daily. To prep 15-30 minutes prior. Wake and start day at 7:30am. Tanker Truck Driver and patient will review action steps, successes, and challenges. Tanker Truck Driver will introduce long and short-term S.M.A.R.T. goals, provide guidance and support, as patient develops goals and builds steps. Patient to continue building action steps towards desired goals. Visit Plan: Arranged follow-up with : February @ 10:00am agreed to follow-up by: (F2F)In-person visit Patient appointment: scheduled /es/ ALEXANDER DRAKE Whole Health Tanker Truck Driver Signed: 03/04/2024 09:42 Receipt Acknowledged By: 03/06/2024 10:11 /monisha/ Massiel Nixon, PhD Clinical Psychologist 03/20/2024 ADDENDUM STATUS: COMPLETED PROCESS ENG SPOKE WITH VET AND RESCHEDULED REQUESTED. /monisha/ ROCIO ROBERTS [address] [place] Signed: 03/20/2024 15:28 ALEXANDER DRAKE [facility] [place] [facility] Mar 02, 2024 11:00 AM INTEGRATIVE HEALTH NOTE: LOCAL TITLE: HEALTH AND WELLNESS COACHING STANDARD TITLE: INTEGRATIVE HEALTH NOTE DATE OF NOTE: MAR 02, 2024@11:00 ENTRY DATE: MAR 04, 2024@09:29:57 AUTHOR: ALEXANDER DRAKE COSIGNER: URGENCY: STATUS: COMPLETED HEALTH AND WELLNESS COACHING Has ADDENDA Health and Wellness Coaching HEALTH AND WELLNESS COACHING VISIT *Type of Visit: In-person *Session number: Coaching Session #2 Time spent with : 30-60 minutes Today's coaching session aligns with the 's [place], Aspiration, or Purpose in the following ways: Mental well-being, physical health, family relationships. was seen for Health and Wellness Coaching related to: Working the Body Recharge Food and Drink Personal Development Family, Friends, and Co-workers Spirit and Soul Surroundings Power of the Mind PERSONAL HEALTH INVENTORY For each component below, rate yourself on a scale of 1 (LOW) to 5(HIGH) of where you are and where you would like to be: 1. MOVING THE BODY: Where are you? 2 Where would you like to be? 5 2. RECHARGE: Where are you? 2 Where would you like to be? 5 3. FOOD AND DRINK: Where are you? 3 Where would you like to be? 4. PERSONAL DEVELOPMENT: Where are you? 2 Where would you like to be? 5 5. FAMILY, FRIENDS, AND CO-WORKERS: Where are you? 2 Where would you like to be? 5 6. SPIRIT AND SOUL: Where are you? 2 Where would you like to be? 5 7. SURROUNDINGS: Where are you? 2 Where would you like to be? 5 8. POWER OF THE MIND: Where are you? 1 Where would you like to be? 5 [employer] Whole Health Long and Short-Term Whole Health Goals: TBD Short-Term Action Step: set a new S.M.A.R.T. goal of: Goal 1: Restore Set daily alarms on phone 10pm and 7:30pm. Begin routine to be in bed no later than 10pm, daily. To prep 15-30 minutes prior. Wake and start day at 7:30am. DISCUSSION: Patient was informed of confidentiality policy. WH Tanker Truck Driver and Patient reviewed and discussed [employer] [place] of Health, and mindful awareness. Completed PHI and discussed high/low areas of Self-Care. Session focused on mindfulness, values, strengths, and MAP. Patient selected focus area of Restore and developed 1st action step. Patient requested to schedule next Coaching appt. on February @ 10:00am F2F. PLAN: Patient to begin action step in focus area: Restore. Will set alarms on phone 10pm and 7:30pm. Begin routine to be in bed no later than 10pm, daily. To prep 15-30 minutes prior. Wake and start day at 7:30am. Tanker Truck Driver and patient will review action steps, successes, and challenges. Tanker Truck Driver will introduce long and short-term S.M.A.R.T. goals, provide guidance and support, as patient develops goals and builds steps. Patient to continue building action steps towards desired goals. Visit Plan: Arranged follow-up with : February @ 10:00am Creighton agreed to follow-up by: (F2F)In-person visit Patient appointment: scheduled /monisha/ ALEXANDER Desai [employer] Tanker Truck Driver Signed: 03/04/2024 09:42 Receipt Acknowledged By: 03/06/2024 10:11 /monisha/ Massiel Nixon, PhD Clinical Psychologist 03/20/2024 ADDENDUM STATUS: COMPLETED Provider notes, patient missed today's scheduled F2F Coaching Session. Requesting [facility] to kindly call patient and offer an opportunity to reschedule appt: HIRO/NO/Whole Health Coaching 1 /monisha/ ALEXANDER DRAKE [employer] Health Tanker Truck Driver Signed: 03/20/2024 10:18 Receipt Acknowledged By: 03/20/2024 15:28 /monisha/ ROCIO ROBERTS [address] [place] * AWAITING SIGNATURE * JONATHAN MARI 03/20/2024 ADDENDUM STATUS: COMPLETED PROCESS ENG SPOKE WITH VET AND RESCHEDULED REQUESTED. /monisha/ ROCIO ROBERTS [address] [place] Signed: 03/20/2024 15:28 ALEXANDER DRAKERShayy [facility] [place] [facility]
--- OUTSIDE RECORDS SUMMARY | 2024-07-31 10:45 | XMS_ITS | Encounter Summary ---
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 Date/Time Encounter Type Encounter Description Reason Pro vider Source Feb 29, 2024 08:29 AM Outpatient Encounter PAIN CLINIC [facility] Encounter Template Text not used by [place] Plan of Treatment: Future Appointments (+ 6 months) and Future Tests (+/- 45 days) The Plan of Treatment section includes future care activities for the patient [facility] [place] [facility] This section includes future appointments and [...] AMBULATORY - PSYCHIATRY [facility] [place] [facility] Mar 02, 2024 11:00 AM AMBULATORY - MEDICINE [facility] [place] [facility] Mar 13, 2024 08:00 AM AMBULATORY - MEDICINE [facility] [place] [facility] Mar 15, 2024 10:30 AM AMBULATORY - MEDICINE [facility] [place] [facility] Mar 20, 2024 10:00 AM AMBULATORY - MEDICINE [facility] [place] [facility] Mar 22, 2024 10:45 AM AMBULATORY - MEDICINE [facility] [place] [facility] Mar 22, 2024 11:00 AM AMBULATORY - PSYCHIATRY [facility] [place] [facility] Mar 28, 2024 09:00 AM AMBULATORY - PSYCHIATRY [facility] [place] [facility] Mar 29, 2024 09:00 AM AMBULATORY - MEDICINE [facility] [place] [facility] Mar 30, 2024 09:00 AM AMBULATORY - MEDICINE [facility] [place] [facility] Apr 12, 2024 11:00 AM AMBULATORY - MEDICINE [facility] [place] [facility] Apr 14, 2024 08:30 AM AMBULATORY - MEDICINE [facility] [place] [facility] Apr 18, 2024 08:00 AM AMBULATORY - MEDICINE [facility] [place] [facility] Apr 19, 2024 01:00 PM AMBULATORY - MEDICINE [facility] [place] [facility] Apr 24, 2024 11:00 AM AMBULATORY - PSYCHIATRY [facility] [place] [facility] Apr 24, 2024 01:00 PM AMBULATORY - MEDICINE [facility] Apr 26, 2024 01:00 PM AMBULATORY - MEDICINE [facility] N[facility] May 01, 2024 02:45 PM AMBULATORY - MEDICINE [place] C NTRL [facility] May 02, 2024 02:00 PM AMBULATORY - MEDICINE [facility] N[facility] May 02, 2024 02:30 PM AMBULATORY - MEDICINE [facility] Active, Pending, and Scheduled Orders This section includes a listing of several types of active, pending, and scheduled orders, including clinic medications orders, diagnostic test orders, procedure orders and consult orders; where the start date of the order is 45 days before the date of the Encounter or 45 days after the date of theEncounter. The data comes from all [facility] facilities. Test Date/Time Test Type Test Details Facility Name Jan 19, 2024 12:00 AM Laboratory - Chemistry Order HEMOGLOBIN A1C PANEL BLOOD ([facility] Jan 19, 2024 12:00 AM Laboratory - Chemistry Order BASIC METABOLIC PANEL (non-fasting) BLOOD (SST-SERUM) [facility] Jan 19, 2024 12:00 AM Laboratory - Chemistry Order TSH BLOOD (SST-SERUM) [facility] Jan 19, 2024 12:00 AM Laboratory - Chemistry Order LIVER FUNCTION BLOOD (SST-SERUM) [facility] Jan 19, 2024 12:00 AM Laboratory - Chemistry Order CBC AND DIFF (AUTO) BLOOD (LAV-BLOOD) [facility] Jan 19, 2024 12:00 AM Laboratory - Chemistry Order LIPID PANEL, NON FASTING BLOOD (SST-SERUM) [facility] Mar 29, 2024 09:37 AM Consult Order COMMUNITY CARE-COLONOSCOPY SURVEILLANCE Cons Building Rigger's Choice [facility] Social History: Smoking Status (Most [...] 04, 2021 02:56 PM VA-TOBACCO NEVER USED [facility] Encounter Notes: All associated encounter notes This section contains the clinical notes associated to the Encounter. Date/Time Encounter Note(s) Provider Source Feb 29, 2024 08:29 AM ADMINISTRATIVE NOTE: LOCAL TITLE: ADMINISTRATIVE NOTE STANDARD TITLE: ADMINISTRATIVE NOTE DATE OF NOTE: FEB 29, 2024@08:29 ENTRY DATE: FEB 29, 2024@08:29:54 AUTHOR: JAIME HERR EXP COSIGNER: URGENCY: STATUS: COMPLETED Called and left message on voicemail. Patients appointment with Pain PT on 03/01/2024 has been cancelled and needs to be rescheduled with a of 03/01/2024. /monisha/ JAIME HERR ADVANCED NURSING SPECIALIST Signed: 02/29/2024 08:31 JAIME HERR [facility]
--- OUTSIDE RECORDS SUMMARY | 2024-07-31 10:45 | XMS_ITS ---
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 (WNR) TRICA RE(WN R) Jul 26, 2017 (WNR) [id number] [phone] ROSALES DOUGHERTY PATIENT Selected Encounter This section includes the information on record at SD for the Encounter. Date/Time Encounter Type Encounter Description Reason Provider Source Mar 13, 2024 08:00 AM THERAPEUTIC EXERCISES PAIN CLINIC ICD-10-CM M54.59 Other low back pain EUSEBIA LAWTON Carlin Encounter Template Text not used by [place] Assessments - Encounter Diagnoses This section includes the primary and secondary diagnoses documented for the Encounter. Date/Time Primary/Secondary Diagnosis Diagnosis Name Provider Source Mar 18, 2024 05:15 AM PRIMARY Other low back pain EUSEBIA LAWTON [place] [facility] [place] [facility] Plan of Treatment: Future Appointments (+ 6 months) and Future Tests (+/- 45 days) The Plan of Treatment section includes future care activities for the patient from all [place] [facility]. This section includes future appointments [...] 15, 2024 10:30 AM AMBULATORY - MEDICINE [place] [facility] [place] [facility] Mar 20, 2024 10:00 AM AMBULATORY - MEDICINE [place] [facility] [place] [facility] Mar 22, 2024 10:45 AM AMBULATORY - MEDICINE [place] [facility] [place] [facility] Mar 22, 2024 11:00 AM AMBULATORY - PSYCHIATRY [place] [facility] [place] [facility] Mar 28, 2024 09:00 AM AMBULATORY - PSYCHIATRY [place] [facility] [place] [facility] Mar 29, 2024 09:00 AM AMBULATORY - MEDICINE [place] [facility] [place] [facility] Mar 30, 2024 09:00 AM AMBULATORY - MEDICINE [place] [facility] [place] [facility] Apr 12, 2024 11:00 AM AMBULATORY - MEDICINE [place] [facility] [place] [facility] Apr 14, 2024 08:30 AM AMBULATORY - MEDICINE [place] [facility] [place] [facility] Apr 18, 2024 08:00 AM AMBULATORY - MEDICINE [place] [facility] [place] [facility] Apr 19, 2024 01:00 PM AMBULATORY - MEDICINE [place] [facility] [place] [facility] Apr 24, 2024 11:00 AM AMBULATORY - PSYCHIATRY [facility] [place] [facility] Apr 24, 2024 01:00 PM AMBULATORY - MEDICINE [place] [facility] [place] [facility] Apr 26, 2024 01:00 PM AMBULATORY - MEDICINE [place] [facility] [place] [facility] May 01, 2024 02:45 PM AMBULATORY - MEDICINE [place] [facility] [place] [facility] May 02, 2024 02:00 PM AMBULATORY - MEDICINE [place] [facility] [place] [facility] May 02, 2024 02:30 PM AMBULATORY - MEDICINE [place] [facility] [place] [facility] May 03, 2024 03:00 PM AMBULATORY - MEDICINE SD [facility] [place] [facility] May 10, 2024 03:45 PM AMBULATORY - MEDICINE SD [facility] [place] [facility] May 17, 2024 01:45 PM AMBULATORY - MEDICINE SD [facility] [place] [facility] [...] of theEncounter. The data comes from all [place] treatment facilities. Test Date/Time Test Type Test Details Facility Name Mar 29, 2024 09:37 AM Consult Order COMMUNITY CARE-COLONOSCOPY SURVEILLANCE Cons Sleeve Setter's Choice [facility] Lab Results: +/- 30 days of the encounter This section includes the Chemistry and Hematology Lab Results on record with [place] for the patient. Radiology Reports and Pathology Reports are provided separately, in subsequent sections. Lab Results This section contains the Chemistry/Hematology Results that were resulted 30 days before or 30 daysafter the date of the Encounter. Date/Time Source Result Type Result - Unit Interpretation Reference Range Comment Apr 05, 2024 09:14 AM [facility] LIPID PANEL FASTING Specimen Type: SERUM No comment entered. Ordering Provider: MELBA DOE Report Released Date/Time: Mar 29, 2024 09:37 AM Reporting Lab: [address] [address] Performing Lab: [address] [address] CHOLESTEROL 167 mg/dL TRIGLYCERIDE 231 mg/dL H 0-150 LDL calculated 80 mg/dL 0-129 CHOL/HDL 4.1 HDL CHOLESTEROL 41 mg/dL 40-60 Apr 05, 2024 09:14 AM [facility] VITAMIN B12 Specimen Type: SERUM No comment entered. Ordering Provider: MELBA DOE Report Released Date/Time: Mar 29, 2024 09:37 AM Reporting Lab: [facility] [address] [facility] [address] Performing Lab: [facility] [address] [facility] [address] VITAMIN B12 500 pg/mL 200-900 Apr 05, 2024 09:14 AM [facility] BASIC METABOLIC PANEL (fasting) Specimen Type: SERUM No comment entered. Ordering Provider: MELBA DOE Report Released Date/Time: Mar 29, 2024 09:37 AM Reporting Lab: [facility] [address] [facility] [address] Performing Lab: [facility] [address] [facility] [address] UREA NITROGEN 22 mg/dL 7-25 GLUCOSE 128 mg/dL H 65-100 SODIUM 140 mmol/L 135-145 POTASSIUM 4.2 mmol/L 3.5-5.0 CHLORIDE 103 mmol/L 100-110 CO2 26 meq/L 20-30 CREATININE, Serum 1.02 mg/dL 0.50-1.40 eGFR(CKD-EPI 2020) 80 mL/min >60 Apr 05, 2024 09:14 AM [facility] TSH Specimen Type: SERUM No comment entered. Ordering Provider: MELBA DOE Report Released Date/Time: Mar 29, 2024 09:37 AM Reporting Lab: [facility] [address] [facility] [address] Performing Lab: [address] [address] TSH 1.38 u[IU]/mL 0.35-5.00 Apr 05, 2024 09:14 AM [facility] CBC Specimen Type: BLOOD No comment entered. Ordering Provider: MELBA DOE Report Released Date/Time: Mar 29, 2024 09:37 AM Reporting Lab: [facility] [address] [facility] [address] Performing Lab: [facility] [address] [facility] [address] WBC 6.54 10*3/uL 4.50-11.00 RBC 4.83 10*6/uL [...] Encounter. Date/Time Encounter Note(s) Provider Source Mar 13, 2024 09:49 AM ADDENDUM: LOCAL TITLE: Addendum STANDARD TITLE: ADDENDUM DATE OF NOTE: MAR 13, 2024@09:49:34 ENTRY DATE: MAR 13, 2024@09:49:35 AUTHOR: EUSEBIA LAWTON EXP COSIGNER: URGENCY: STATUS: COMPLETED Dr. Rucker: Ed is interested in increasing his muscle relaxer, he would like a call to discuss this with you. /monisha/ EUSEBIA LAWTON DPT PHYSICAL THERAPIST Signed: 03/13/2024 09:51 Receipt Acknowledged By: 03/14/2024 14:05 /monisha/ Perez Rucker MD STAFF PHYSICIAN --- Original Document --- 03/13/24 PHYSICAL THERAPY: Initial Evaluation date: 02/10/2024 Treatment #: 3 Treatment time: 30 Diagnosis: Other low back pain(ICD-10-CM M54.59) Provider: Dr. Roth PT Treatment Precautions: Pt identified by full name and . Active problems - Computerized Problem List is the source for the followin. Exposure to potentially hazardous substance 2. Cervical radiculopathy 3. Tinnitus 4. Pain 5. Anxiety 6. Benign prostatic hyperplasia TREATMENT PRECAUTIONS OR DAILY INSTRUCTIONS: (Vitals, surgical precautions etc.) SUBJECTIVE: Ed shares he's only made 1 trip to the [place] pool; he believes it closes later this week. He thinks walking is likely the next best option for him for low-impact aerobic exercise. He brought his 5 year old grandson to a town fair, estimates he was able to walk about 15 minutes at a time. Confirmed that he is having pain flares after periods of increased activity (prolonged walking, lawn care, etc.). Pain, verbal numeric scale 0-10: 5/10, off an on OBJECTIVE: THERAPEUTIC EXERCISE: MINUTES: 30 Elevated HOB with wedge and H/L: pelvic tilt, 2x10 reps Elevated HOB with wedge and H/L: LTR, 2x10 reps Elevated HOB with wedge and H/L: SKTC, 20s x 3 -- cues DB'ing Elevated HOB with wedge and H/L: beginner bridge >> barely clears glutes off mat >> 2s hold >> x 10 reps MANUAL THERAPY: MINUTES: 15 Hip PROM Passive glute, piriformis, and hamstring stretches Gentle LAD bilaterally GAIT TRAINING: MINUTES: NEUROMUSCULAR EDUCATION: MINUTES: OTHER: MINUTES: MODALITIES: MINUTES: [] Contraindication screen completed prior to modality [] Skin intact pre/post SELF CARE/EDUCATION: MINUTES: -- Graded walking intervals: 10 min daily until next visit; discussed use of bike path, track in town, or [place]. [facility] Access Code: [email or web address] URL: [email or web address] Date: 03/13/2024 Prepared by: TAHIRA [employer] Exercises - Seated Hamstring Stretch - 2 x [...] reps ED/TRAIN SELF-MGMT NONPHY MINUTES: ASSESSMENT: Ed p/w fair tolerance to manual therapy and gentle core therex. He reported consistent activation of left cervical paraspinals with lower body therex, encouraged mindful awareness and use of breathing techniques to relax UB guarding. Ed was encouraged to continue with his gentle HEP and to begin walking 10 min/day. PLAN: Continue with plan of care and HEP as prescribed. Interventions to include: Manual therapy (PRN): stm, MET's, myofascial release Aerobic exercise: Nustep, graded activity Therex: LB and LE flexibility, gentle progressive core, diaphragmatic breathing Education: PNE, posture, ergo, bodymechanics, relaxation techniques, graded activity for aerobic exercise Update [employer] HEP as indicated [Access Code: [email or web address]] [employer] Access Code: [email or web address] Patient education was provided for all aspects of care during this clinical encounter. /monisha/ EUSEBIA LAWTON DPT PHYSICAL THERAPIST Signed: 03/13/2024 09:49 EUSEBIA LAWTON [facility] [place] [facility] Mar 13, 2024 07:54 AM PHYSICAL THERAPY N OTE: LOCAL TITLE: PHYSICAL THERAPY STANDARD TITLE: PHYSICAL THERAPY NOTE DATE OF NOTE: MAR 13, 2024@07:54 ENTRY DATE: MAR 13, 2024@07:54:37 AUTHOR: EUSEBIA LAWTON EXP COSIGNER: URGENCY: STATUS: COMPLETED PHYSICAL THERAPY Has ADDENDA Initial Evaluation date: 02/10/2024 Treatment #: 3 Treatment time: 30 Diagnosis: Other low back pain(ICD-10-CM M54.59) Provider: Dr. Roth PT Treatment Precautions: Pt identified by full name and . Active problems - Computerized Problem List is the source for the followin. Exposure to potentially hazardous substance 2. Cervical radiculopathy 3. Tinnitus 4. Pain 5. Anxiety 6. Benign prostatic hyperplasia TREATMENT PRECAUTIONS OR DAILY INSTRUCTIONS: (Vitals, surgical precautions etc.) SUBJECTIVE: Ed shares he's only made [place] trip to the town [place]; he believes it closes later this week. He thinks walking is likely the next best option for him for low-impact aerobic exercise. He brought his 5 year old grandson to a town fair, estimates he was able to walk about 15 minutes at a time. Confirmed that he is having pain flares after periods of increased activity (prolonged walking, lawn care, etc.). Pain, verbal numeric scale 0-10: 5/10, off an on OBJECTIVE: THERAPEUTIC EXERCISE: MINUTES: 30 Elevated HOB with wedge and H/L: pelvic tilt, 2x10 reps Elevated HOB with wedge and H/L: LTR, 2x10 reps Elevated HOB with wedge and H/L: SKTC, 20s x 3 -- cues DB'ing Elevated HOB with wedge and H/L: beginner bridge >> barely clears glutes off mat >> 2s hold >> x 10 reps MANUAL THERAPY: MINUTES: 15 Hip PROM Passive glute, piriformis, and hamstring stretches Gentle LAD bilaterally GAIT TRAINING: MINUTES: NEUROMUSCULAR EDUCATION: MINUTES: OTHER: MINUTES: MODALITIES: MINUTES: [] Contraindication screen completed prior to modality [] Skin intact pre/post SELF CARE/EDUCATION: MINUTES: -- Graded walking intervals: 10 min daily until next visit; discussed use of bike path, track in town, or [place]. [facility] Access Code: [email or web address] URL: [email or web address] Date: 03/13/2024 Prepared by: [place] [employer] Exercises - Seated Hamstring Stretch - 2 x [...] reps ED/TRAIN SELF-MGMT NONPHY MINUTES: ASSESSMENT: Ed p/w fair tolerance to manual therapy and gentle core therex. He reported consistent activation of left cervical paraspinals with lower body therex, encouraged mindful awareness and use of breathing techniques to relax UB guarding. Ed was encouraged to continue with his gentle HEP and to begin walking 10 min/day. PLAN: Continue with plan of care and HEP as prescribed. Interventions to include: Manual therapy (PRN): stm, MET's, myofascial release Aerobic exercise: Nustep, graded activity Therex: LB and LE flexibility, gentle progressive core, diaphragmatic breathing Education: PNE, posture, ergo, bodymechanics, relaxation techniques, graded activity for aerobic exercise Update [facility] as indicated [Access Code: [email or web address]] [facility] Access Code: [email or web address] Patient education was provided for all aspects of care during this clinical encounter. /monisha/ EUSEBIA LAWTON DPT PHYSICAL THERAPIST Signed: 03/13/2024 09:49 03/13/2024 ADDENDUM STATUS: COMPLETED Dr. Rucker: Ed is interested in increasing his muscle relaxer, he would like a call to discuss this with you. /monisha/ EUSEBIA LAWTON DPT PHYSICAL THERAPIST Signed: 03/13/2024 09:51 Receipt Acknowledged By: 03/14/2024 14:05 /monisha/ Perez Rucker MD STAFF PHYSICIAN 03/21/2024 ADDENDUM STATUS: COMPLETED Vet cancelled follow-up this date. /monisha/ EUSEBIA LAWTON DPT PHYSICAL THERAPIST Signed: 03/21/2024 09:09 EUSEBIA LAWTON [place] [facility]
--- OUTSIDE RECORDS SUMMARY | 2024-07-31 10:46 | XMS_ITS | Encounter Summary ---
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 Date/Time Encounter Type Encounter Description Reason Pro vider Source Jun 12, 2024 12:00 PM Outpatient Encounter PAIN CLINIC IHE Encounter Template Text not used by SD Plan of Treatment: Future Appointments (+ 6 months) and Future Tests (+/- 45 days) The Plan of Treatment section includes future care activities for the patient from all [place] [facility] This section includes future appointments and [...] MEDICINE [facility] [place] [facility] Jun 14, 2024 11:00 AM AMBULATORY - MEDICINE [facility] [place] [facility] Jun 20, 2024 11:00 AM AMBULATORY - PSYCHIATRY [facility] [place] [facility] Jun 20, 2024 01:00 PM AMBULATORY - MEDICINE [facility] [place] [facility] Jun 27, 2024 01:00 PM AMBULATORY - MEDICINE [facility] [place] [facility] Jul 04, 2024 01:00 PM AMBULATORY - MEDICINE [facility] [place] [facility] Jul 05, 2024 01:00 PM AMBULATORY - MEDICINE [facility] [place] [facility] Jul 10, 2024 08:30 AM AMBULATORY - MEDICINE [facility] [place] [facility] Jul 11, 2024 03:00 PM AMBULATORY - PSYCHIATRY [facility] [place] [facility] Jul 31, 2024 10:30 AM AMBULATORY - NONE [facility] [place] [facility] Aug 01, 2024 08:45 AM AMBULATORY - MEDICINE [facility] [place] [facility] Aug 01, 2024 09:00 AM AMBULATORY - MEDICINE [facility] [place] [facility] Aug 01, 2024 01:00 PM AMBULATORY - MEDICINE [facility] [place] [facility] Aug 08, 2024 01:00 PM AMBULATORY - MEDICINE [facility] [place] [facility] Aug 09, 2024 10:30 AM AMBULATORY - PSYCHIATRY [facility] [place] [facility] Aug 15, 2024 10:00 AM [facility] Sep 14, 2024 11:30 AM AMBULATORY - MEDICINE [facility] Active, Pending, and Scheduled Orders This section [...] Consult Order PSYCHOTHER SHERRY SWANSON/MAGED OUTPT Cons Automotive Instructor's Choice [facility] Lab Results: +/- 30 days of the [...] Range Comment Jul 04, 2024 07:55 AM [facility] METHADONE SCREEN Specimen Type: URINE Comment: NATO test are qualitative, any L or H flags only indicate a [facility] alert was sent. Ordering Provider: KARLA LOYA Report Released Date/Time: Apr 20, 2024 08:58 AM Reporting Lab: [facility] [address] [facility] [address] Performing Lab: [facility] [address] [facility] [address] METHADONE SCREEN None detected(Nega tive) L Negative Jul 04, 2024 07:55 AM [facility] ALCOHOL, ETHYL URINE PANEL Specimen Type: URINE [...] Apr 20, 2024 08:58 AM Reporting Lab: [address] [address] Performing Lab: [address] [address] ALCOHOL, ETHYL URINE NONE-DETECTED mg/dL NONE-DETEC DINA, cutoff = 10 mg/dL PH, NATO 5.4 [pH] 4-10 CREATININE, NATO 123.15 mg/dL >20 SP.GRAVITY, NATO 1.026 H 1.00 3-1.02 0 Jul 04, 2024 07:55 AM [facility] AMPHETAMINES SCREEN PANEL Specimen Type: URINE Comment: [...] Apr 20, 2024 08:58 AM Reporting Lab: [address] [address] Performing Lab: [address] [address] AMPHETAMINES SCREEN NONE-DETECTED None-Detec dina, Cutoff = 1000 ng/mL PH, NATO 5.4 [pH] 4-10 CREATININE, NATO 123.15 mg/dL >20 SP.GRAVITY, NATO 1.026 H 1.00 3-1.02 0 Jul 04, 2024 07:55 AM [facility] FENTANYL SCREEN PANEL Specimen Type: URINE Comment: [...] Apr 20, 2024 08:58 AM Reporting Lab: [address] [address] Performing Lab: [address] [address] FENTANYL SCREEN NONE-DETECTE D ng/mL Negative: Cutoff = 1.00 ng/mL PH, NATO 5.4 [pH] 4-10 CREATININE, NATO 123.70 mg/dL >20 SP.GRAVITY, NATO 1.026 H 1.00 3-1.02 0 Jul 04, 2024 07:55 AM [facility] BENZODIAZEPINES SCREEN PANEL Specimen Type: URINE Comment: [...] Apr 20, 2024 08:58 AM Reporting Lab: [address] [address] Performing Lab: [address] [address] BENZODIAZEPINES SCREEN NONE-DETECTED None-Detec dina, Cutoff = 200 ng/mL PH, NATO 5.4 [pH] 4-10 CREATININE, NATO 123.15 mg/dL >20 SP.GRAVITY, NATO 1.026 H 1.00 3-1.02 0 Jul 04, 2024 07:55 AM [facility] BUPRENORPHINE SCREEN PANEL Specimen Type: URINE Comment: [...] Apr 20, 2024 08:58 AM Reporting Lab: [address] [address] Performing Lab: [address] [address] BUPRENORPHINE (URINE) NONE-DETECTED None Detected, Cutoff = 10.0 ng/mL PH, NATO 5.4 [pH] 4-10 CREATININE, NATO 123.15 mg/dL >20 SP.GRAVITY, NATO 1.026 H 1.00 3-1.02 0 Jul 04, 2024 07:55 AM [facility] CANNABINOIDS SCREEN PANEL Specimen Type: URINE Comment: [...] Apr 20, 2024 08:58 AM Reporting Lab: [address] [address] Performing Lab: [address] [address] CANNABINOIDS SCREEN NONE-DETECTED None-Detec dina,Cutoff = 50 ng/mL PH, NATO 5.4 [pH] 4-10 CREATININE, NATO 123.15 mg/dL >20 SP.GRAVITY, NATO 1.026 H 1.00 3-1.02 0 Jul 04, 2024 07:55 AM [facility] COCAINE SCREEN PANEL Specimen Type: URINE Comment: [...] Apr 20, 2024 08:58 AM Reporting Lab: [address] [address] Performing Lab: [address] [address] COCAINE SCREEN NONE-DETECTED N one-Detec dina,Cutoff = 300 ng/mL PH, NATO 5.4 [pH] 4-10 CREATININE, NATO 123.15 mg/dL >20 SP.GRAVITY, NATO 1.026 H 1.00 3-1.02 0 Jul 04, 2024 07:55 AM [facility] OPIATES SCREEN PANEL Specimen Type: URINE Comment: [...] Apr 20, 2024 08:58 AM Reporting Lab: [address] [address] Performing Lab: [address] [address] OPIATES SCREEN NONE-DETECTED N one-Detec dina, Cutoff = 300 ng/mL PH, NATO 5.4 [pH] 4-10 CREATININE, NATO 123.15 mg/dL >20 SP.GRAVITY, NATO 1.026 H 1.00 3-1.02 0 Jul 04, 2024 07:55 AM [facility] OXYCODONE SCREEN PANEL Specimen Type: URINE Comment: [...] Apr 20, 2024 08:58 AM Reporting Lab: [address] [address] Performing Lab: [address] [address] OXYCODONE SCREEN NONE-DETECTED None-Detec dina, Cutoff = 100 ng/mL PH, NATO 5.4 [pH] 4-10 CREATININE, NATO 123.15 mg/dL >20 SP.GRAVITY, NATO 1.026 H 1.00 3-1.02 0 Jul 04, 2024 07:51 AM [facility] [id number] PGx Specimen Type: BLOOD Comment: shipped on manifest [id number] Ordering Provider: ALYSHA MOY Report Released Date/Time: Apr 24, 2024 12:11 PM Reporting Lab: [facility] [address] [facility] [address] Performing Lab: [facility] [address] [facility] [address] [id number] PGx comment Jul 04, 2024 07:51 AM [facility] LIVER FUNCTION Specimen Type: SERUM No comment entered. Ordering Provider: MELBA DOE Report Released Date/Time: Jan 06, 2024 03:34 PM Reporting Lab: [facility] [address] [facility] [address] Performing Lab: [address] [address] PROTEIN,TOTAL 6.8 g/dL 6.0-8.3 ALBUMIN 4.2 g/dL 3.5-5.0 ALKALINE PHOSPHATASE 84 U/L 40-150 AST 19 U/L 5-34 ALT 27 U/L BILIRUBIN, TOTAL 0.3 mg/dL 0.2-1.2 Jul 04, 2024 07:51 AM [facility] BASIC METABOLIC PANEL (fasting) Specimen Type: SERUM No comment entered. Ordering Provider: MELBA DOE Report Released Date/Time: Jan 06, 2024 03:34 PM Reporting Lab: [address] [address] Performing Lab: [address] [address] UREA NITROGEN 13 mg/dL 7-25 GLUCOSE 123 mg/dL H 65-100 SODIUM 138 mmol/L 135-145 POTASSIUM 4.7 mmol/L 3.5-5.0 CHLORIDE 103 mmol/L 100-110 CO2 27 meq/L 20-30 CREATININE, Serum 0.93 mg/dL 0.50-1.40 eGFR(CKD-EPI 2020) 89 mL/min >60 Jul 04, 2024 07:51 AM [facility] CBC Specimen Type: BLOOD No comment entered. Ordering Provider: MELBA DOE Report Released Date/Time: Jan 06, 2024 03:34 PM Reporting Lab: [facility] [address] [facility] [address] Performing Lab: [address] [address] WBC 6.85 10*3/uL 4.50-11.00 RBC 4.76 10*6/uL [...] 04, 2021 02:56 PM VA-TOBACCO NEVER USED [facility] Encounter Notes: All associated encounter notes This section contains the clinical notes associated to the Encounter. Date/Time Encounter Note(s) Provider Source Jun 12, 2024 12:00 PM TELEPHONE ENCOUNTE R NOTE: LOCAL TITLE: TELEPHONE NOTE/SPECIALTY CLINIC STANDARD TITLE: TELEPHONE ENCOUNTER NOTE DATE OF NOTE: JUN 12, 2024@12:00 ENTRY DATE: JUN 12, 2024@12:00:30 AUTHOR: ROCIO ROBERTS COSIGNER: URGENCY: STATUS: COMPLETED Call attempt was made to remind vet that they have a FTF appt with the Pain clinic on 06/13/2024 at 1300. No answer, lvm. Location was confirmed. /monisha/ ROCIO ROBERTS [employer] AIRSPACE CONTROL OFFICER Signed: 06/12/2024 12:00 ROCIO ROBERTS [facility]
--- OUTSIDE RECORDS SUMMARY | 2024-07-31 10:46 | XMS_ITS | Encounter Summary ---
Author Name [facility] Organization [facility] Address [address] [place] [id number] Care Team Providers Care Environmental Protection Specialist Name Role Phone MELBA DOE Primary [...] PART B Feb 24, 2020 PART B [id number] LADONNA COLEMANSTAR PATIENT MEDICARE (WNR) MEDICARE (M) PART A November 24, 2019 PART A [id number] [place] STAR COLEMAN PATIENT OFFICE OF REGIONAL PROGRAM/MUSIC DIRECTOR NO-FAULT INSURANCE NO FAULT May 12, 2022 NO FAULT [id number] LADONNA COLEMANSTAR PATIENT FOR LIFE TFL* Feb 24, 2020 [id number] STAR DOUGHERTY JR PATIENT [facility] (WNR) TRICA RE(WN R) Jul 26, 2017 (WNR) [id number] [phone] ROSALES DOUGHERTY PATIENT Selected Encounter This section includes the information on record at [place] for the Encounter. Date/Time Encounter Type Encounter Description Reason Pro vider Source Jun 19, 2024 11:15 AM Outpatient Encounter PAIN CLINIC [facility] Encounter Template Text not used by [place] Plan of Treatment: Future Appointments (+ 6 months) and Future Tests (+/- 45 days) The Plan of Treatment section includes future care activities for the [facility]. This section includes future appointments and future orders which are active, pending or scheduled. Future Appointments This section includes appointments that were scheduled to occur 6 months from the date of the Encounter, up to a maximum of 20 appointments. The data comes from all [place] treatment facilities. Appointment Date/Time Appointment Type Appointme nt Facility Name Jun 20, 2024 11:00 AM AMBULATORY [facility] [place] [facility] Jun 20, 2024 01:00 PM [facility]ORY [facility] [place] [facility] Jun 27, 2024 01:00 PM [facility]ATORY [facility] [place] [facility] Jul 04, 2024 01:00 PM [facility]UL[facility]ORY [facility] [place] [facility] Jul 05, 2024 01:00 PM [facility]ULATORY [facility] [place] [facility] Jul 10, 2024 08:30 AM [facility]ULATORY [facility] [place] [facility] Jul 11, 2024 03:00 PM AMBULATORY [facility] [place] [facility] Jul 31, 2024 10:30 AM AMBULATORY - NONE [facility] [place] [facility] Aug 01, 2024 08:45 AM AM[facility]UL[facility]ORY [facility] [place] [facility] Aug 01, 2024 09:00 AM [facility]UL[facility]ORY [facility] [place] [facility] Aug 01, 2024 01:00 PM AM[facility]ULATORY [facility] [place] [facility] Aug 08, 2024 01:00 PM AM[facility]ULATORY [facility] [place] [facility] Aug 09, 2024 10:30 AM AMBULATORY [facility] PS[facility] [place] [facility] Aug 15, 2024 10:00 AM AM[facility]ULATORY [facility] [place] [facility] Sep 14, 2024 11:30 AM AMBULATORY - [facility]IC[facility] [place] [facility] Active, Pending, and Scheduled [...] Consult Order PSYCHOTHER SHERRY SWANSON/MAGED OUTPT Cons Anthropology Professor's Choice [facility] Lab Results: +/- 30 days of [...] Range Comment Jul 04, 2024 07:55 AM [facility] METHADONE SCREEN Specimen Type: URINE Comment: NATO test are qualitative, any L or H flags only indicate a [facility] alert was sent. Ordering Provider: KARLA LOYA Report Released Date/Time: Apr 20, 2024 08:58 AM Reporting Lab: [facility] [address] [facility] [address] Performing Lab: [facility] [address] [facility] [address] METHADONE SCREEN None detected(Nega tive) L Negative Jul 04, 2024 07:55 AM [facility] ALCOHOL, ETHYL URINE PANEL Specimen Type: URINE [...] Apr 20, 2024 08:58 AM Reporting Lab: [facility] [address] Performing Lab: [address] [address] ALCOHOL, ETHYL URINE NONE-DETECTED mg/dL NONE-DETEC DINA, cutoff = 10 mg/dL PH, NATO 5.4 [pH] 4-10 CREATININE, NATO 123.15 mg/dL >20 SP.GRAVITY, NATO 1.026 H 1.00 3-1.02 0 Jul 04, 2024 07:55 AM [facility] AMPHETAMINES SCREEN PANEL Specimen Type: URINE Comment: [...] Apr 20, 2024 08:58 AM Reporting Lab: [address] [address] Performing Lab: [address] [address] AMPHETAMINES SCREEN NONE-DETECTED None-Detec dina, Cutoff = 1000 ng/mL PH, NATO 5.4 [pH] 4-10 CREATININE, NATO 123.15 mg/dL >20 SP.GRAVITY, NATO 1.026 H 1.00 3-1.02 0 Jul 04, 2024 07:55 AM [facility] BENZODIAZEPINES SCREEN PANEL Specimen Type: URINE Comment: [...] Apr 20, 2024 08:58 AM Reporting Lab: [address] [address] Performing Lab: [address] [address] BENZODIAZEPINES SCREEN NONE-DETECTED None-Detec dina, Cutoff = 200 ng/mL PH, NATO 5.4 [pH] 4-10 CREATININE, NATO 123.15 mg/dL >20 SP.GRAVITY, NATO 1.026 H 1.00 3-1.02 0 Jul 04, 2024 07:55 AM [facility] FENTANYL SCREEN PANEL Specimen Type: URINE Comment: [...] Apr 20, 2024 08:58 AM Reporting Lab: [address] [address] Performing Lab: [address] [address] FENTANYL SCREEN NONE-DETECTE D ng/mL Negative: Cutoff = 1.00 ng/mL PH, NATO 5.4 [pH] 4-10 CREATININE, NATO 123.70 mg/dL >20 SP.GRAVITY, NATO 1.026 H 1.00 3-1.02 0 Jul 04, 2024 07:55 AM [facility] BUPRENORPHINE SCREEN PANEL Specimen Type: URINE Comment: [...] Apr 20, 2024 08:58 AM Reporting Lab: [address] [address] Performing Lab: [address] [address] BUPRENORPHINE (URINE) NONE-DETECTED None Detected, Cutoff = 10.0 ng/mL PH, NATO 5.4 [pH] 4-10 CREATININE, NATO 123.15 mg/dL >20 SP.GRAVITY, NATO 1.026 H 1.00 3-1.02 0 Jul 04, 2024 07:55 AM [facility] CANNABINOIDS SCREEN PANEL Specimen Type: URINE Comment: [...] Apr 20, 2024 08:58 AM Reporting Lab: [address] [address] Performing Lab: [address] [address] CANNABINOIDS SCREEN NONE-DETECTED None-Detec dina,Cutoff = 50 ng/mL PH, NATO 5.4 [pH] 4-10 CREATININE, NATO 123.15 mg/dL >20 SP.GRAVITY, NATO 1.026 H 1.00 3-1.02 0 Jul 04, 2024 07:55 AM [facility] COCAINE SCREEN PANEL Specimen Type: URINE Comment: [...] Apr 20, 2024 08:58 AM Reporting Lab: [address] [address] Performing Lab: [address] [address] COCAINE SCREEN NONE-DETECTED N one-Detec dina,Cutoff = 300 ng/mL PH, NATO 5.4 [pH] 4-10 CREATININE, NATO 123.15 mg/dL >20 SP.GRAVITY, NATO 1.026 H 1.00 3-1.02 0 Jul 04, 2024 07:55 AM [facility] OPIATES SCREEN PANEL Specimen Type: URINE Comment: [...] Apr 20, 2024 08:58 AM Reporting Lab: [address] [address] Performing Lab: [address] [address] OPIATES SCREEN NONE-DETECTED N one-Detec dina, Cutoff = 300 ng/mL PH, NATO 5.4 [pH] 4-10 CREATININE, NATO 123.15 mg/dL >20 SP.GRAVITY, NATO 1.026 H 1.00 3-1.02 0 Jul 04, 2024 07:55 AM [facility] OXYCODONE SCREEN PANEL Specimen Type: URINE Comment: [...] Apr 20, 2024 08:58 AM Reporting Lab: [facility] [address] [facility] [address] Performing Lab: [address] [address] OXYCODONE SCREEN NONE-DETECTED None-Detec dina, Cutoff = 100 ng/mL PH, NATO 5.4 [pH] 4-10 CREATININE, NATO 123.15 mg/dL >20 SP.GRAVITY, NATO 1.026 H 1.00 3-1.02 0 Jul 04, 2024 07:51 AM [facility] [id number] PGx Specimen Type: BLOOD Comment: shipped on manifest [id number] Ordering Provider: ALYSHA MOY Report Released Date/Time: Apr 24, 2024 12:11 PM Reporting Lab: [facility] [address] [facility] [address] Performing Lab: [facility] [address] [facility] [address] [id number] PGx comment Jul 04, 2024 07:51 AM [facility] LIVER FUNCTION Specimen Type: SERUM No comment entered. Ordering Provider: MELBA DOE Report Released Date/Time: Jan 06, 2024 03:34 PM Reporting Lab: [facility] [address] [facility] [address] Performing Lab: [address] [address] PROTEIN,TOTAL 6.8 g/dL 6.0-8.3 ALBUMIN 4.2 g/dL 3.5-5.0 ALKALINE PHOSPHATASE 84 U/L 40-150 AST 19 U/L 5-34 ALT 27 U/L BILIRUBIN, TOTAL 0.3 mg/dL 0.2-1.2 Jul 04, 2024 07:51 AM [facility] BASIC METABOLIC PANEL (fasting) Specimen Type: SERUM No comment entered. Ordering Provider: MELBA DOE Report Released Date/Time: Jan 06, 2024 03:34 PM Reporting Lab: [facility] [address] [facility] [address] Performing Lab: [facility] [address] [facility] [address] UREA NITROGEN 13 mg/dL 7-25 GLUCOSE 123 mg/dL H 65-100 SODIUM 138 mmol/L 135-145 POTASSIUM 4.7 mmol/L 3.5-5.0 CHLORIDE 103 mmol/L 100-110 CO2 27 meq/L 20-30 CREATININE, Serum 0.93 mg/dL 0.50-1.40 eGFR(CKD-EPI 2020) 89 mL/min >60 Jul 04, 2024 07:51 AM [facility] CBC Specimen Type: BLOOD No comment entered. Ordering Provider: MELBA DOE Report Released Date/Time: Jan 06, 2024 03:34 PM Reporting Lab: [facility] [address] [facility] [address] Performing Lab: [address] [address] WBC 6.85 10*3/uL 4.50-11.00 RBC 4.76 10*6/uL [...] 04, 2021 02:56 PM [facility]-TOBACCO NEVER USED [facility] Encounter Notes: All associated encounter notes This section contains the clinical notes associated to the Encounter. Date/Time Encounter Note(s) Provider Source Jun 19, 2024 11:15 AM TELEPHONE ENCOUNTE R NOTE: LOCAL TITLE: TELEPHONE NOTE/SPECIALTY CLINIC STANDARD TITLE: TELEPHONE ENCOUNTER NOTE DATE OF NOTE: JUN 19, 2024@11:15 ENTRY DATE: JUN 19, 2024@11:15:49 AUTHOR: JONATHAN MARI EXP COSIGNER: URGENCY: STATUS: COMPLETED Called and spoke with pt to remind them that they have a FTF appt with the Pain clinic on 06/20/2024 at 1300. New location was confirmed /monisha/ JONATHAN MARI [employer] PORTAL CONSULTANT Signed: 06/19/2024 11:17 JONATHAN MARI [facility]
--- OUTSIDE RECORDS SUMMARY | 2024-07-31 10:46 | XMS_ITS | Encounter Summary ---
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 Date/Time Encounter Type Encounter Description Reason Provider Source Jun 13, 2024 01:00 PM SELF-MGMT EDUC/TRAIN 5-8 PT PAIN CLINIC ICD-10-CM G89.4 Chronic pain syndrome CLARA ROJAS Carlin Encounter Template Text not used by [place] Assessments - Encounter Diagnoses This section includes the primary and secondary diagnoses documented for the Encounter. Date/Time Primary/Secondary Diagnosis Diagnosis Name Provider Source Jul 02, 2024 01:54 PM PRIMARY Chronic pain syndrome CLARA ROJAS [place] [facility] [place] [facility] Plan of Treatment: Future Appointments (+ 6 months) and Future Tests (+/- 45 days) The Plan of Treatment section includes future care activities for the patient [facility] [place] [facility] This section includes future appointments and future orders which are active, pending or scheduled. Future Appointments This section includes appointments that were scheduled to occur 6 months from the date of the Encounter, up to a maximum of 20 appointments. The data comes from all [place] treatment facilities. Appointment Date/Time Appointment Type Appointme nt Facility Name Jun 14, 2024 11:00 AM AMBULATORY - MEDICINE [place] [facility] [place] [facility] Jun 20, 2024 11:00 AM AMBULATORY - PSYCHIATRY [facility] [place] [facility] Jun 20, 2024 01:00 PM AMBULATORY - MEDICINE [facility] [place] [facility] Jun 27, 2024 01:00 PM AMBULATORY - MEDICINE [place] [facility] [place] [facility] Jul 04, 2024 01:00 PM AMBULATORY - MEDICINE [place] [facility] [place] [facility] Jul 05, 2024 01:00 PM AMBULATORY - MEDICINE [place] [facility] [place] [facility] Jul 10, 2024 08:30 AM AMBULATORY - MEDICINE [place] [facility] [place] [facility] Jul 11, 2024 03:00 PM AMBULATORY - PSYCHIATRY [place] [facility] [place] [facility] Jul 31, 2024 10:30 AM AMBULATORY - NONE [facility] [place] [facility] Aug 01, 2024 08:45 AM AMBULATORY - MEDICINE [facility] [place] [facility] Aug 01, 2024 09:00 AM AMBULATORY - MEDICINE [facility] [place] [facility] Aug 01, 2024 01:00 PM AM[facility]ULATORY [facility]INE [facility] [place] [facility] Aug 08, 2024 01:00 PM AMBUL[facility] - [facility] Aug 09, 2024 10:30 [facility] Aug 15, 2024 10:00 AM [facility] Sep 14, 2024 11:30 AM AMBULATORY - MEDICINE [facility] Active, Pending, and Scheduled Orders This section [...] Consult Order PSYCHOTHER SHERRY SWANSON/MAGED OUTPT Cons Notary Public's Choice [facility] Lab Results: +/- 30 days of [...] Range Comment Jul 04, 2024 07:55 AM [facility] METHADONE SCREEN Specimen Type: URINE Comment: NATO test are qualitative, any L or H flags only indicate a [facility] alert was sent. Ordering Provider: KARLA LOYA Report Released Date/Time: Apr 20, 2024 08:58 AM Reporting Lab: [facility] [address] [facility] [address] Performing Lab: [facility] [address] [facility] [address] METHADONE SCREEN None detected(Nega tive) L Negative Jul 04, 2024 07:55 AM [facility] ALCOHOL, ETHYL URINE PANEL Specimen Type: [...] Apr 20, 2024 08:58 AM Reporting Lab: [address] [address] Performing Lab: [address] [address] ALCOHOL, ETHYL URINE NONE-DETECTED mg/dL NONE-DETEC NBA, cutoff = 10 mg/dL PH, NATO 5.4 [pH] 4-10 CREATININE, NATO 123.15 mg/dL >20 SP.GRAVITY, NATO 1.026 H 1.00 3-1.02 0 Jul 04, 2024 07:55 AM [facility] AMPHETAMINES SCREEN PANEL Specimen Type: URINE [...] Apr 20, 2024 08:58 AM Reporting Lab: [address] [address] Performing Lab: [address] [address] AMPHETAMINES SCREEN NONE-DETECTED None-Detec nba, Cutoff = 1000 ng/mL PH, NATO 5.4 [pH] 4-10 CREATININE, NATO 123.15 mg/dL >20 SP.GRAVITY, NATO 1.026 H 1.00 3-1.02 0 Jul 04, 2024 07:55 AM [facility] FENTANYL SCREEN PANEL Specimen Type: URINE [...] Apr 20, 2024 08:58 AM Reporting Lab: [address] [address] Performing Lab: [address] [address] FENTANYL SCREEN NONE-DETECTE D ng/mL Negative: Cutoff = 1.00 ng/mL PH, NATO 5.4 [pH] 4-10 CREATININE, NATO 123.70 mg/dL >20 SP.GRAVITY, NATO 1.026 H 1.00 3-1.02 0 Jul 04, 2024 07:55 AM [facility] BUPRENORPHINE SCREEN PANEL Specimen Type: URINE [...] Apr 20, 2024 08:58 AM Reporting Lab: [address] [address] Performing Lab: [address] [address] BUPRENORPHINE (URINE) NONE-DETECTED None Detected, Cutoff = 10.0 ng/mL PH, NATO 5.4 [pH] 4-10 CREATININE, NATO 123.15 mg/dL >20 SP.GRAVITY, NATO 1.026 H 1.00 3-1.02 0 Jul 04, 2024 07:55 AM [facility] BENZODIAZEPINES SCREEN PANEL Specimen Type: URINE [...] Apr 20, 2024 08:58 AM Reporting Lab: [address] [address] Performing Lab: [address] [address] BENZODIAZEPINES SCREEN NONE-DETECTED None-Detec nba, Cutoff = 200 ng/mL PH, NATO 5.4 [pH] 4-10 CREATININE, NATO 123.15 mg/dL >20 SP.GRAVITY, NATO 1.026 H 1.00 3-1.02 0 Jul 04, 2024 07:55 AM [facility] CANNABINOIDS SCREEN PANEL Specimen Type: URINE [...] Apr 20, 2024 08:58 AM Reporting Lab: [address] [address] Performing Lab: [address] [address] CANNABINOIDS SCREEN NONE-DETECTED None-Detec nba,Cutoff = 50 ng/mL PH, NATO 5.4 [pH] 4-10 CREATININE, NATO 123.15 mg/dL >20 SP.GRAVITY, NATO 1.026 H 1.00 3-1.02 0 Jul 04, 2024 07:55 AM [facility] COCAINE SCREEN PANEL Specimen Type: URINE [...] Apr 20, 2024 08:58 AM Reporting Lab: [address] [address] Performing Lab: [address] [address] COCAINE SCREEN NONE-DETECTED N one-Detec nba,Cutoff = 300 ng/mL PH, NATO 5.4 [pH] 4-10 CREATININE, NATO 123.15 mg/dL >20 SP.GRAVITY, NATO 1.026 H 1.00 3-1.02 0 Jul 04, 2024 07:55 AM [facility] OPIATES SCREEN PANEL Specimen Type: URINE [...] Apr 20, 2024 08:58 AM Reporting Lab: [address] [address] Performing Lab: [address] [address] OPIATES SCREEN NONE-DETECTED N one-Detec nba, Cutoff = 300 ng/mL PH, NATO 5.4 [pH] 4-10 CREATININE, NATO 123.15 mg/dL >20 SP.GRAVITY, NATO 1.026 H 1.00 3-1.02 0 Jul 04, 2024 07:55 AM [facility] OXYCODONE SCREEN PANEL Specimen Type: URINE [...] Apr 20, 2024 08:58 AM Reporting Lab: [address] [address] Performing Lab: [address] [address] OXYCODONE SCREEN NONE-DETECTED None-Detec nba, Cutoff = 100 ng/mL PH, NATO 5.4 [pH] 4-10 CREATININE, NATO 123.15 mg/dL >20 SP.GRAVITY, NATO 1.026 H 1.00 3-1.02 0 Jul 04, 2024 07:51 AM [facility] [id number] PGx Specimen Type: BLOOD Comment: shipped on manifest [id number] Ordering Provider: ALYSHA MOY Report Released Date/Time: Apr 24, 2024 12:11 PM Reporting Lab: [facility] [address] [facility] [address] Performing Lab: [facility] [address] [facility] [address] [id number] PGx comment Jul 04, 2024 07:51 AM [facility] LIVER FUNCTION Specimen Type: SERUM No comment entered. Ordering Provider: MELBA DOE Report Released Date/Time: Jan 06, 2024 03:34 PM Reporting Lab: [address] [address] Performing Lab: [facility] [address] [address] PROTEIN,TOTAL 6.8 g/dL 6.0-8.3 ALBUMIN 4.2 g/dL 3.5-5.0 ALKALINE PHOSPHATASE 84 U/L 40-150 AST 19 U/L 5-34 ALT 27 U/L BILIRUBIN, TOTAL 0.3 mg/dL 0.2-1.2 Jul 04, 2024 07:51 AM [facility] BASIC METABOLIC PANEL (fasting) Specimen Type: SERUM No comment entered. Ordering Provider: MELBA DOE Report Released Date/Time: Jan 06, 2024 03:34 PM Reporting Lab: [address] [address] Performing Lab: [address] [address] UREA NITROGEN 13 mg/dL 7-25 GLUCOSE 123 mg/dL H 65-100 SODIUM 138 mmol/L 135-145 POTASSIUM 4.7 mmol/L 3.5-5.0 CHLORIDE 103 mmol/L 100-110 CO2 27 meq/L 20-30 CREATININE, Serum 0.93 mg/dL 0.50-1.40 eGFR(CKD-EPI 2020) 89 mL/min >60 Jul 04, 2024 07:51 AM [facility] CBC Specimen Type: BLOOD No comment entered. Ordering Provider: MELBA DOE Report Released Date/Time: Jan 06, 2024 03:34 PM Reporting Lab: [address] [address] Performing Lab: [address] [address] WBC 6.85 10*3/uL 4.50-11.00 RBC 4.76 10*6/uL [...] VA-TOBACCO NEVER USED [facility] [place] [facility] Encounter Notes: All associated encounter notes This section contains the clinical notes associated to the Encounter. Date/Time Encounter Note(s) Provider Source Jun 13, 2024 03:08 PM PHYSICAL THERAPY NOTE: LOCAL TITLE: ACTIVE INTERDISCIPLINARY SESSION NOTE STANDARD TITLE: PHYSICAL THERAPY NOTE DATE OF NOTE: JUN 13, 2024@15:08 ENTRY DATE: JUN 13, 2024@15:08:41 AUTHOR: CLARA ROJAS EXP COSIGNER: URGENCY: STATUS: COMPLETED ACTIVE INTERDISCIPLINARY SESSION NOTE Has ADDENDA AMP Interdisciplinary Group Parent Note: Session 2 AMP Provider/s facilitating todays session: Psychologist: Clara [...] participant. Prior to the AMP program this confirmed their willingness and interest in participating in this small group, interdisciplinary, pain self-management program. This [place] has acknowledged awareness and acceptance of: 1. The privacy restraints regarding participation in small group sessions. 2. The need for respectful behavior toward other participants and providers. 3. The need to focus discussion to specific topics discussed during the session. 4. The limitations to individualization of care during sessions. [place] informed that individualized breakout sessions can be provided as deemed necessary by the AMP provider or as requested by the [place]. Number of Veterans in attendance for todays session: 5 Summary of Session 2: Behavioral Health and Physical Therapy providers co-facilitated this AMP session. Session started with a guided activity: Box Breathing exercise. The importance of regulating breathing to promote a state of calm was underscored. Content from the previous week was reviewed and time was spent discussing home practice, including their efforts, observations, and needs. Education on the chronic pain cycle was provided to promote insight on the importance of breaking this cycle and returning to regular meaningful activities. Information on Delayed Onset Muscle Soreness (DOMS) was provided to help prepare participants for AMP programming and conditioning efforts. The Transformation Zone (TZ) was also introduced in this session as a tool to promote (mindful) awareness on the nervous system and on their tendencies when active. Education on the concepts of overdoing and underdoing was provided as well to promote self-awareness and insight on current patterns. A systematic process to make progress with cardiovascular exercise and sustained movement at their own pace by using the TZ was thoroughly discussed. The topic of SMART goals was also introduced in this session to promote structure, consistency, and values-oriented behavior during and beyond treatment. Strategies to promote SMARTer goal setting were also presented. Session ended with a review of take-home points and home practice expectations, including assigned worksheets. Plan: [place] to follow up for session 3 of the AMP program. Further details regarding this session can be found in the attached notes for each discipline. /monisha/ CLARA ROJAS, PH.D. CLINICAL HEALTH PSYCHOLOGIST Signed: 06/13/2024 15:36 06/13/2024 ADDENDUM STATUS: COMPLETED Active Behavioral Health Session Note AMP Interdisciplinary Group Session: 2 ======== Please see the session summary portion of today's AMP Interdisciplinary Parent Note for details describing the content, strategies, and skills taught during today's session. Assessment/Plan: [Yes] Did the confirm completion (showed worksheets, returned, or verbally) of the home practice work sheets from theprevious session? If applicable, please describe the barriers the [place] communicated to completing the previous session's worksheets: [Yes] was an active participant and provided relevant and on topic contributions during today's session. [Yes] The suicide and homicide risk were determined to be low for this during today's session. [Yes] No other acute psychological distress was observed for this [place] during today's session. [Yes] Continue with AMP upcoming treatment sessions. [No] Additional actions/recommendations are needed for this participating [place]: Baseball Glove Stuffer offered make up session to review material he missed from having to leave Session 1 early for another appointment. However, the [place] felt he understood the material after reviewing it on his own and discussing it further in session today. /es/ CLARA ROJAS, PH.D. CLINICAL HEALTH PSYCHOLOGIST Signed: 06/14/2024 09:30 06/13/2024 ADDENDUM STATUS: COMPLETED Physical Therapy Note AMP Interdisciplinary Group Session: 2 ======== Please see the session summary portion of [facility] AMP Interdisciplinary Note for details describing the content, strategies, and skills taught during todays session. Assessment/Plan: [NO] Did the require any suggestions for modifications from the AMP PT to specific skills/strategies performed as part of their home practice since last session? If yes, please describe: [NO] Did specific issues of concern or barriers to participation regarding this [place] come up during todays session? If yes, these concerns are detailed here: [YES] This verbalized and/or demonstrated understanding in the content, strategies, and skills as described in the session summary portion of this sessions AMP Interdisciplinary Note. [YES] This verbalized understanding of expected home practice to be performed between todays session and the next AMP session. [X] Continue with AMP upcoming treatment sessions. [X] Additional comments: Ed shared that stress and anxiety are faucets for him. He identified with the chronic pain cycle and recognized that when he's in pain, he has less tolerance for his grandson's behavior. /monisha/ CRIS LAWTON DPT PHYSICAL THERAPIST Signed: 06/14/2024 07:28 [facility]
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
--- OUTSIDE RECORDS SUMMARY | 2024-07-31 10:46 | XMS_ITS | Encounter Summary ---
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 Date/Time Encounter Type Encounter Description Reason Pro vider Source Jun 12, 2024 12:01 PM Outpatient Encounter PAIN CLINIC [facility] Encounter Template Text not used by [place] Plan of Treatment: Future Appointments (+ 6 months) and Future Tests (+/- 45 days) The Plan of Treatment section includes [facility] care [facility] [place] [facility] This section includes future appointments [...] MEDICINE [facility] [place] [facility] Jun 14, 2024 11:00 AM AMBULATORY - MEDICINE [facility] [place] [facility] Jun 20, 2024 11:00 AM AMBULATORY - PSYCHIATRY [facility] [place] [facility] Jun 20, 2024 01:00 PM AMBULATORY - MEDICINE [facility] [place] [facility] Jun 27, 2024 01:00 PM AMBULATORY - [facility]ICINE [facility] [place] [facility] Jul 04, 2024 01:00 PM AMBULATORY - MEDICINE [facility] [place] [facility] Jul 05, 2024 01:00 PM AMBULATORY - [facility]ICINE [facility] [place] [facility] Jul 10, 2024 08:30 AM AMBULATORY - MEDICINE [facility] [place] [facility] Jul 11, 2024 03:00 PM AMBULATORY - PSYCHIATRY [facility] [place] [facility] Jul 31, 2024 10:30 AM AMBULATORY - NONE [facility] [place] [facility] Aug 01, 2024 08:45 AM AMBULATORY - MEDICINE [facility] [place] [facility] Aug 01, 2024 09:00 AM AMBULATORY - MEDICINE [facility] [place] [facility] Aug 01, 2024 01:00 PM AMBULATORY - MEDICINE [facility] [place] [facility] Aug 08, 2024 01:00 PM AMBULATORY - MEDICINE [facility] [place] [facility] Aug 09, 2024 10:30 AM AMBULATORY - PS[facility]CHIATRY [facility] [place] [facility] Aug 15, 2024 10:00 [facility] Sep 14, 2024 11:30 AM AMBULATORY - MEDICINE [facility] Active, Pending, and Scheduled Orders This section includes a listing of several types of active, pending, and scheduled orders, including clinic medications orders, diagnostic test orders, procedure orders and consult orders; where the start date of the order is 45 days before the date of the Encounter or 45 days after the date of theEncounter. The data comes from all [place] treatment facilities. Test Date/Time Test Type Test Details Facility Name Jun 01, 2024 08:16 AM Consult Order PSYCHOTHER SHERRY SWANSON/MAGED OUTPT Cons Dinkey Engine Operator's Choice [facility] Lab [...] Range Comment Jul 04, 2024 07:55 AM [facility] METHADONE SCREEN Specimen Type: URINE Comment: NATO test are qualitative, any L or H flags only indicate a [facility] alert was sent. Ordering Provider: KARLA LOYA Report Released Date/Time: Apr 20, 2024 08:58 AM Reporting Lab: [facility] [address] [facility] [facility] [address] Performing Lab: [facility] [address] [address] METHADONE SCREEN None detected(Nega tive) L Negative Jul 04, 2024 07:55 AM [facility] ALCOHOL, ETHYL URINE PANEL Specimen Type: URINE [...] Apr 20, 2024 08:58 AM Reporting Lab: [address] [address] Performing Lab: [address] [address] ALCOHOL, ETHYL URINE NONE-DETECTED mg/dL NONE-DETEC DINA, cutoff = 10 mg/dL PH, NATO 5.4 [pH] 4-10 CREATININE, NATO 123.15 mg/dL >20 SP.GRAVITY, NATO 1.026 H 1.00 3-1.02 0 Jul 04, 2024 07:55 AM [facility] AMPHETAMINES SCREEN PANEL Specimen Type: URINE Comment: [...] Apr 20, 2024 08:58 AM Reporting Lab: [address] [address] Performing Lab: [address] [address] AMPHETAMINES SCREEN NONE-DETECTED None-Detec dina, Cutoff = 1000 ng/mL PH, NATO 5.4 [pH] 4-10 CREATININE, NATO 123.15 mg/dL >20 SP.GRAVITY, NATO 1.026 H 1.00 3-1.02 0 Jul 04, 2024 07:55 AM [facility] FENTANYL SCREEN PANEL Specimen Type: URINE Comment: [...] Apr 20, 2024 08:58 AM Reporting Lab: [address] [address] Performing Lab: [address] [address] FENTANYL SCREEN NONE-DETECTE D ng/mL Negative: Cutoff = 1.00 ng/mL PH, NATO 5.4 [pH] 4-10 CREATININE, NATO 123.70 mg/dL >20 SP.GRAVITY, NATO 1.026 H 1.00 3-1.02 0 Jul 04, 2024 07:55 AM [facility] BENZODIAZEPINES SCREEN PANEL Specimen Type: URINE Comment: [...] Apr 20, 2024 08:58 AM Reporting Lab: [address] [address] Performing Lab: [address] [address] BENZODIAZEPINES SCREEN NONE-DETECTED None-Detec dina, Cutoff = 200 ng/mL PH, NATO 5.4 [pH] 4-10 CREATININE, NATO 123.15 mg/dL >20 SP.GRAVITY, NATO 1.026 H 1.00 3-1.02 0 Jul 04, 2024 07:55 AM [facility] BUPRENORPHINE SCREEN PANEL Specimen Type: URINE Comment: [...] Apr 20, 2024 08:58 AM Reporting Lab: [address] [address] Performing Lab: [address] [address] BUPRENORPHINE (URINE) NONE-DETECTED None Detected, Cutoff = 10.0 ng/mL PH, NATO 5.4 [pH] 4-10 CREATININE, NATO 123.15 mg/dL >20 SP.GRAVITY, NATO 1.026 H 1.00 3-1.02 0 Jul 04, 2024 07:55 AM [facility] CANNABINOIDS SCREEN PANEL Specimen Type: URINE Comment: [...] Apr 20, 2024 08:58 AM Reporting Lab: [address] [address] Performing Lab: [address] [address] CANNABINOIDS SCREEN NONE-DETECTED None-Detec dina,Cutoff = 50 ng/mL PH, NATO 5.4 [pH] 4-10 CREATININE, NATO 123.15 mg/dL >20 SP.GRAVITY, NATO 1.026 H 1.00 3-1.02 0 Jul 04, 2024 07:55 AM [facility] COCAINE SCREEN PANEL Specimen Type: URINE Comment: [...] Apr 20, 2024 08:58 AM Reporting Lab: [address] [address] Performing Lab: [address] [address] COCAINE SCREEN NONE-DETECTED N one-Detec dina,Cutoff = 300 ng/mL PH, NATO 5.4 [pH] 4-10 CREATININE, NATO 123.15 mg/dL >20 SP.GRAVITY, NATO 1.026 H 1.00 3-1.02 0 Jul 04, 2024 07:55 AM [facility] OPIATES SCREEN PANEL Specimen Type: URINE Comment: [...] Apr 20, 2024 08:58 AM Reporting Lab: [address] [address] Performing Lab: [address] [address] OPIATES SCREEN NONE-DETECTED N one-Detec dina, Cutoff = 300 ng/mL PH, NATO 5.4 [pH] 4-10 CREATININE, NATO 123.15 mg/dL >20 SP.GRAVITY, NATO 1.026 H 1.00 3-1.02 0 Jul 04, 2024 07:55 AM [facility] OXYCODONE SCREEN PANEL Specimen Type: URINE Comment: [...] Apr 20, 2024 08:58 AM Reporting Lab: [address] [address] Performing Lab: [address] [address] OXYCODONE SCREEN NONE-DETECTED None-Detec dina, Cutoff = 100 ng/mL PH, NATO 5.4 [pH] 4-10 CREATININE, NATO 123.15 mg/dL >20 SP.GRAVITY, NATO 1.026 H 1.00 3-1.02 0 Jul 04, 2024 07:51 AM [facility] [id number] PGx Specimen Type: BLOOD Comment: shipped on manifest [id number] Ordering Provider: ALYSHA MOY Report Released Date/Time: Apr 24, 2024 12:11 PM Reporting Lab: [facility] [address] [facility] [address] Performing Lab: [facility] [address] [address] [id number] PGx comment Jul 04, 2024 07:51 AM [facility] LIVER FUNCTION Specimen Type: SERUM No comment entered. Ordering Provider: MELBA DOE Report Released Date/Time: Jan 06, 2024 03:34 PM Reporting Lab: [facility] [address] [facility] [address] Performing Lab: [address] [address] PROTEIN,TOTAL 6.8 g/dL 6.0-8.3 ALBUMIN 4.2 g/dL 3.5-5.0 ALKALINE PHOSPHATASE 84 U/L 40-150 AST 19 U/L 5-34 ALT 27 U/L BILIRUBIN, TOTAL 0.3 mg/dL 0.2-1.2 Jul 04, 2024 07:51 AM [facility] BASIC METABOLIC PANEL (fasting) Specimen Type: SERUM No comment entered. Ordering Provider: MELBA DOE Report Released Date/Time: Jan 06, 2024 03:34 PM Reporting Lab: [address] [address] Performing Lab: [address] [address] UREA NITROGEN 13 mg/dL 7-25 GLUCOSE 123 mg/dL H 65-100 SODIUM 138 mmol/L 135-145 POTASSIUM 4.7 mmol/L 3.5-5.0 CHLORIDE 103 mmol/L 100-110 CO2 27 meq/L 20-30 CREATININE, Serum 0.93 mg/dL 0.50-1.40 eGFR(CKD-EPI 2020) 89 mL/min >60 Jul 04, 2024 07:51 AM [facility] CBC Specimen Type: BLOOD No comment entered. Ordering Provider: MELBA DOE Report Released Date/Time: Jan 06, 2024 03:34 PM Reporting Lab: [facility] [address] [facility] [facility] [address] Performing Lab: [address] [address] WBC 6.85 10*3/uL 4.50-11.00 RBC 4.76 10*6/uL [...] and tobacco- related health factors from the [place] facility where the Encounter took place. Current [...] Encounter Note(s) Provider Source Jun 12, 2024 12:01 PM TELEPHONE ENCOUNTE R NOTE: LOCAL TITLE: TELEPHONE NOTE/SPECIALTY CLINIC STANDARD TITLE: TELEPHONE ENCOUNTER NOTE DATE OF NOTE: JUN 12, 2024@12:01 ENTRY DATE: JUN 12, 2024@12:01:14 AUTHOR: ROCIO ROBERTS COSIGNER: URGENCY: STATUS: COMPLETED Call attempt was made to remind vet that they have a FTF appt with the Pain clinic on 06/14/2024 at 1100. No answer, lvm. Location was confirmed. /monisha/ ROCIO ROBERTS [employer] FILTERING MACHINE TENDER HELPER Signed: 06/12/2024 12:01 ROCIO ROBERTS [facility]
--- OUTSIDE RECORDS SUMMARY | 2024-07-31 10:47 | XMS_ITS ---
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 Date/Time Encounter Type Encounter Description Reason Provider Source Jun 20, 2024 01:00 PM SELF-MGMT EDUC/TRAIN 2-4 PT PAIN CLINIC ICD-10-CM G89.4 Chronic pain syndrome CLARA ROJAS Carlin Encounter Template Text not used by [place] Assessments - Encounter Diagnoses This section includes the primary and secondary diagnoses documented for the Encounter. Date/Time Primary/Secondary Diagnosis Diagnosis Name Provider Source Jun 20, 2024 03:46 PM PRIMARY Chronic pain syndrome CLARA ROJAS [place] [facility] [place] [facility] Plan of Treatment: Future Appointments (+ 6 months) and Future Tests (+/- 45 days) The Plan of Treatment section includes future care activities for the patient [facility] This section includes future appointments and future [...] 27, 2024 01:00 PM AMBULATORY - MEDICINE [place] [facility] [place] [facility] Jul 04, 2024 01:00 PM AMBULATORY - MEDICINE [place] [facility] [place] [facility] Jul 05, 2024 01:00 PM AMBULATORY - MEDICINE [place] [facility] [place] [facility] Jul 10, 2024 08:30 AM AMBULATORY - MEDICINE [place] [facility] [place] [facility] Jul 11, 2024 03:00 PM AMBULATORY - PSYCHIATRY [facility] [place] [facility] Jul 31, 2024 10:30 AM AMBULATORY - NONE [facility] [place] [facility] Aug 01, 2024 08:45 AM AMBULATORY - MEDICINE [place] [facility] [place] [facility] Aug 01, 2024 09:00 AM AMBULATORY - MEDICINE [facility] [place] [facility] Aug 01, 2024 01:00 PM AMBULATORY - MEDICINE [place] [facility] [place] [facility] Aug 08, 2024 01:00 PM AMBULATORY - MEDICINE [place] [facility] [place] [facility] Aug 09, 2024 10:30 AM AMBULATORY - PSYCHIATRY [facility] [place] [facility] Aug 15, 2024 10:00 AM AMBULATORY [facility] MEDICINE [facility] [place] [facility] Sep 14, 2024 11:30 AM AMBULATORY - MEDICINE [facility] Active, Pending, and Scheduled Orders [...] Consult Order PSYCHOTHER SHERRY SWANSON/MAGED OUTPT Cons Sheltered Workshop Executive Director's Choice [facility] Lab Results: +/- 30 days of the [...] Range Comment Jul 04, 2024 07:55 AM [facility] METHADONE SCREEN Specimen Type: URINE Comment: NATO test are qualitative, any L or H flags only indicate a [facility] alert was sent. Ordering Provider: KARLA LOYA Report Released Date/Time: Apr 20, 2024 08:58 AM Reporting Lab: [facility] [address] [facility] [address] Performing Lab: [facility] [address] [facility] [address] METHADONE SCREEN None detected(Nega tive) L Negative Jul 04, 2024 07:55 AM [facility] ALCOHOL, ETHYL URINE PANEL Specimen Type: URINE [...] may have been adulterated. Ordering Provider: KARLA OLYA Report Released Date/Time: Apr 20, 2024 08:58 AM Reporting Lab: [address] [address] Performing Lab: [address] [address] ALCOHOL, ETHYL URINE NONE-DETECTED mg/dL NONE-DETEC NBA, cutoff = 10 mg/dL PH, NATO 5.4 [pH] 4-10 CREATININE, NATO 123.15 mg/dL >20 SP.GRAVITY, NATO 1.026 H 1.00 3-1.02 0 Jul 04, 2024 07:55 AM [facility] AMPHETAMINES SCREEN PANEL Specimen Type: URINE Comment: [...] Apr 20, 2024 08:58 AM Reporting Lab: [address] [address] Performing Lab: [address] [address] AMPHETAMINES SCREEN NONE-DETECTED None-Detec nba, Cutoff = 1000 ng/mL PH, NATO 5.4 [pH] 4-10 CREATININE, NATO 123.15 mg/dL >20 SP.GRAVITY, NATO 1.026 H 1.00 3-1.02 0 Jul 04, 2024 07:55 AM [facility] BENZODIAZEPINES SCREEN PANEL Specimen Type: URINE Comment: [...] Apr 20, 2024 08:58 AM Reporting Lab: [address] [address] Performing Lab: [address] [address] BENZODIAZEPINES SCREEN NONE-DETECTED None-Detec nba, Cutoff = 200 ng/mL PH, NATO 5.4 [pH] 4-10 CREATININE, NATO 123.15 mg/dL >20 SP.GRAVITY, NATO 1.026 H 1.00 3-1.02 0 Jul 04, 2024 07:55 AM [facility] FENTANYL SCREEN PANEL Specimen Type: URINE Comment: [...] NOT SENT BY LAB. Ordering Provider: KARLA OLYA Report Released Date/Time: Apr 20, 2024 08:58 AM Reporting Lab: [address] [address] Performing Lab: [address] [address] FENTANYL SCREEN NONE-DETECTE D ng/mL Negative: Cutoff = 1.00 ng/mL PH, NATO 5.4 [pH] 4-10 CREATININE, NATO 123.70 mg/dL >20 SP.GRAVITY, NATO 1.026 H 1.00 3-1.02 0 Jul 04, 2024 07:55 AM [facility] BUPRENORPHINE SCREEN PANEL Specimen Type: URINE Comment: [...] Apr 20, 2024 08:58 AM Reporting Lab: [address] [address] Performing Lab: [address] [address] BUPRENORPHINE (URINE) NONE-DETECTED None Detected, Cutoff = 10.0 ng/mL PH, NATO 5.4 [pH] 4-10 CREATININE, NATO 123.15 mg/dL >20 SP.GRAVITY, NATO 1.026 H 1.00 3-1.02 0 Jul 04, 2024 07:55 AM [facility] CANNABINOIDS SCREEN PANEL Specimen Type: URINE Comment: [...] Apr 20, 2024 08:58 AM Reporting Lab: [address] [address] Performing Lab: [address] [address] CANNABINOIDS SCREEN NONE-DETECTED None-Detec nba,Cutoff = 50 ng/mL PH, NATO 5.4 [pH] 4-10 CREATININE, NATO 123.15 mg/dL >20 SP.GRAVITY, NATO 1.026 H 1.00 3-1.02 0 Jul 04, 2024 07:55 AM [facility] COCAINE SCREEN PANEL Specimen Type: URINE Comment: [...] Apr 20, 2024 08:58 AM Reporting Lab: [address] [address] Performing Lab: [address] [address] COCAINE SCREEN NONE-DETECTED N one-Detec nba,Cutoff = 300 ng/mL PH, NATO 5.4 [pH] 4-10 CREATININE, NATO 123.15 mg/dL >20 SP.GRAVITY, NATO 1.026 H 1.00 3-1.02 0 Jul 04, 2024 07:55 AM [facility] OPIATES SCREEN PANEL Specimen Type: URINE Comment: [...] Apr 20, 2024 08:58 AM Reporting Lab: [address] [address] Performing Lab: [address] [address] OPIATES SCREEN NONE-DETECTED N one-Detec nba, Cutoff = 300 ng/mL PH, NATO 5.4 [pH] 4-10 CREATININE, NATO 123.15 mg/dL >20 SP.GRAVITY, NATO 1.026 H 1.00 3-1.02 0 Jul 04, 2024 07:55 AM [facility] OXYCODONE SCREEN PANEL Specimen Type: URINE Comment: [...] Apr 20, 2024 08:58 AM Reporting Lab: [address] [address] Performing Lab: [address] [address] OXYCODONE SCREEN NONE-DETECTED None-Detec nba, Cutoff = 100 ng/mL PH, NATO 5.4 [pH] 4-10 CREATININE, NATO 123.15 mg/dL >20 SP.GRAVITY, NATO 1.026 H 1.00 3-1.02 0 Jul 04, 2024 07:51 AM [facility] [id number] PGx Specimen Type: BLOOD Comment: shipped on manifest [id number] Ordering Provider: ALYSHA MOY Report Released Date/Time: Apr 24, 2024 12:11 PM Reporting Lab: [facility] [address] [facility] [address] Performing Lab: [facility] [address] [facility] [address] [id number] PGx comment Jul 04, 2024 07:51 AM [facility] LIVER FUNCTION Specimen Type: SERUM No comment entered. Ordering Provider: MELBA DOE Report Released Date/Time: Jan 06, 2024 03:34 PM Reporting Lab: [facility] [address] [facility] [address] Performing Lab: [address] [address] PROTEIN,TOTAL 6.8 g/dL 6.0-8.3 ALBUMIN 4.2 g/dL 3.5-5.0 ALKALINE PHOSPHATASE 84 U/L 40-150 AST 19 U/L 5-34 ALT 27 U/L BILIRUBIN, TOTAL 0.3 mg/dL 0.2-1.2 Jul 04, 2024 07:51 AM [facility] BASIC METABOLIC PANEL (fasting) Specimen Type: SERUM No comment entered. Ordering Provider: MELBA DOE Report Released Date/Time: Jan 06, 2024 03:34 PM Reporting Lab: [address] [address] Performing Lab: [address] [address] UREA NITROGEN 13 mg/dL 7-25 GLUCOSE 123 mg/dL H 65-100 SODIUM 138 mmol/L 135-145 POTASSIUM 4.7 mmol/L 3.5-5.0 CHLORIDE 103 mmol/L 100-110 CO2 27 meq/L 20-30 CREATININE, Serum 0.93 mg/dL 0.50-1.40 eGFR(CKD-EPI 2020) 89 mL/min >60 Jul 04, 2024 07:51 AM [facility] CBC Specimen Type: BLOOD No comment entered. Ordering Provider: MELBA DOE Report Released Date/Time: Jan 06, 2024 03:34 PM Reporting Lab: [address] [address] Performing Lab: [address] [address] WBC 6.85 10*3/uL 4.50-11.00 RBC 4.76 10*6/uL [...] VA-TOBACCO NEVER USED [facility] [place] [facility] Encounter Notes: All associated encounter notes This section contains the clinical notes associated to the Encounter. Date/Time Encounter Note(s) Provider Source Jun 20, 2024 03:24 PM PHYSICAL THERAPY NOTE: LOCAL TITLE: ACTIVE INTERDISCIPLINARY SESSION NOTE STANDARD TITLE: PHYSICAL THERAPY NOTE DATE OF NOTE: JUN 20, 2024@15:24 ENTRY DATE: JUN 20, 2024@15:24:17 AUTHOR: CLARA ROJAS EXP COSIGNER: URGENCY: STATUS: COMPLETED ACTIVEMP INTERDISCIPLINARY SESSION NOTE Has ADDENDA AMP Interdisciplinary Group Parent Note: Session 3 AMP Provider/s facilitating todays session: Psychologist: Clara [...] participant. Prior to the AMP program this Jack confirmed their willingness and interest in participating [...] AMP provider or as requested by the Jack. ======== Number of Veterans in attendance for today session: 4 Summary of Session 3: Behavioral Health and Physical Therapy providers co-facilitated this AMP session. Session started with a guided activity: Body Scan Relaxation. The importance of self-awareness on the body and their present moment experience was reinforced. Content from the previous week was reviewed and time was spent discussing home practice, including their efforts, observations, and needs. The first portion of todays session focused on the topic of relaxation. Education on relaxation techniques as a tool to harness a calm state and manage the flow of faucets was provided. Two different relaxation promoting exercises were presented and guided during the session: Deep Breathing and Progress Muscle Relaxation; self-awareness on tension before and after each practice was encouraged. The latter portion of the session focused on the topic of pacing. The drawbacks of avoidance of activity, boom-bust patterns, and overactivity were discussed and the importance of engaging in moderate and safe levels of activity on a regular basis (while staying at the beginning or middle of the Transformation Zone (TZ) was underscored. An example on the use of pacing was presented and steps to promote the use of this skill on a consistent basis were discussed. The topic of mindful stretching was also presented in this session, including a [id number] process to help drain the tubs with this skill. Participants engaged in a mindful stretching practice and the TZ was used to assess their experience. Session ended with a review of take-home points and home practice expectations, including assigned worksheets. ======== Plan: Jack to follow up for session 4 of the AMP program. Further details regarding this session can be found in the attached notes for each discipline. /monisha/ CLARA ROJAS, PH.D. CLINICAL HEALTH PSYCHOLOGIST Signed: 06/20/2024 15:46 06/20/2024 ADDENDUM STATUS: COMPLETED [facility] Health Session Note AMP Interdisciplinary Group Session: 3 ======== Please see the session summary portion of [facility] Interdisciplinary Parent Note for details describing the content, strategies, and skills taught during today session. Assessment/Plan: [No] Did the Jack confirm completion (showed worksheets, returned, or verbally) of the home practice work sheets from the previous session? If applicable, please describe the barriers the communicated to completing the previous sessions worksheets: Appointments [Yes] Jack was an active participant and provided relevant and on topic contributions during [facility] session. [Yes] The suicide and homicide risk were determined to be low for this during today session. [Yes] No other acute psychological distress was observed for this Jack during today session. [Yes] Continue with AMP upcoming treatment sessions. [ ] Additional actions/recommendations are needed for this participating : /es/ CLARA ROJAS, PH.D. CLINICAL HEALTH PSYCHOLOGIST Signed: 06/20/2024 15:50 06/20/2024 ADDENDUM STATUS: COMPLETED Physical Therapy Note AMP Interdisciplinary Group Session: 3 ======== Please see the session summary portion of [facility] Interdisciplinary Note for details describing the content, strategies, and skills taught during [facility] session. Assessment/Plan: [NO] Did the require any suggestions for modifications from the AMP PT to specific skills/strategies performed as part of their home practice since last session? If yes, please describe: [NO] Did specific issues of concern or barriers to participation regarding this come up during [facility] session? If yes, these concerns are detailed here: [YES] This Jack verbalized and/or demonstrated understanding in the content, strategies, and skills as described in the session summary portion of this sessions AMP Interdisciplinary Note. [YES] This Jack verbalized understanding of expected home practice to be performed between todays session and the next AMP session. [X] Continue with AMP upcoming treatment sessions. [X] Additional comments: Ed shared that he had difficulty writing a SMART goal this past week. He noted his primary barrier is the inability to develop a schedule due to his 's fluctuating medical visits. Facilitators encouraged him to continue to think about activities that are meaningful to him to create at least 1 SMART goal. /monisha/ CRIS LAWTON DPT PHYSICAL THERAPIST Signed: 06/20/2024 23:13 CLARA ROJAS [facility]
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
--- OUTSIDE RECORDS SUMMARY | 2024-07-31 10:47 | XMS_ITS ---
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 Name Role Phone MELBA DOE Primary [...] PART B Feb 24, 2020 PART B [id number] STAR DOUGHERTY JR PATIENT MEDICARE (WNR) MEDICARE (M) PART A November 24, 2019 PART A [id number] DOUGHERTY STAR COLEMAN PATIENT OFFICE OF REGIONAL FILTER CLEANER NO-FAULT INSURANCE NO FAULT May 12, 2022 NO FAULT [id number] STAR DOUGHERTY JR PATIENT FOR LIFE TFL* Feb 24, 2020 [id number] STAR DOUGHERTY JR PATIENT [facility] (WNR) TRICA RE(WN R) Jul 26, 2017 (WNR) [id number] [phone] ROSALES DOUGHERTY PATIENT Selected Encounter This section includes the information on record at [place] for the Encounter. Date/Time Encounter Type Encounter Description Reason Provider Source Jul 04, 2024 01:00 PM SELF-MGMT EDUC/TRAIN 5-8 PT PAIN CLINIC ICD-10-CM G89.4 Chronic pain syndrome CLARA ROJAS [place] Encounter Template Text not used by [place] Assessments - Encounter Diagnoses This section includes the primary and secondary diagnoses documented for the Encounter. Date/Time Primary/Secondary Diagnosis Diagnosis Name Provider Source Jul 04, 2024 03:39 PM PRIMARY Chronic pain syndrome CLARA ROJAS [place] [facility] [place] [facility] Plan of Treatment: Future Appointments (+ 6 months) and Future Tests (+/- 45 days) The Plan of Treatment section includes future care activities for the [facility] [place] [facility] This section includes future appointments and future orders which are active, pending or scheduled. Future Appointments This section includes appointments that were scheduled to occur 6 months from the date of the Encounter, up to a maximum of 20 appointments. The data comes from all [place] treatment facilities. Appointment Date/Time Appointment Type Appointme nt Facility Name Jul 05, 2024 01:00 PM AM[place]UL[place] [facility] [place] [facility] Jul 10, 2024 08:30 AM [place] [facility] [place] [facility] Jul 11, 2024 03:00 PM AMBUL[place]ORY - [place]IATRY [place] [facility] [place] [facility] Jul 31, 2024 10:30 AM AMBUL[place]ORY - NONE [place] [facility] [place] [facility] Aug 01, 2024 08:45 AM [place] [facility] [place] [facility] Aug 01, 2024 09:00 AM [place] [facility] [place] [facility] Aug 01, 2024 01:00 PM [place] [facility] [place] [facility] Aug 08, 2024 01:00 PM [place] [facility] [place] [facility] Aug 09, 2024 10:30 AM [place] [facility] [place] [facility] Aug 15, 2024 10:00 AM [place] [facility] [place] [facility] Sep 14, 2024 11:30 AM [place] [facility] [place] [facility] Active, Pending, and Scheduled Orders This section includes a listing of several types of active, pending, and scheduled orders, including clinic medications orders, diagnostic test orders, procedure orders and consult orders; where the start date of the order is 45 days before the date of the Encounter or 45 days after the date of theEncounter. The data comes from all [place] treatment facilities. Test Date/Time Test Type Test Details Facility Name Jun 01, 2024 08:16 AM Consult Order PSYCHOTHER SHERRY SWANSON/BILLYM OUTPT Cons Forecast Analyst's Choice [facility] Lab Results: +/- 30 days of the encounter This section includes the Chemistry and Hematology Lab Results on record with [place] for the patient. Radiology Reports and Pathology Reports are provided separately, in subsequent sections. Lab Results This section contains the Chemistry/Hematology Results that were resulted 30 days before or 30 daysafter the date of the Encounter. Date/Time Source Result Type Result - Unit Interpretation Reference Range Comment Jul 04, 2024 07:55 AM [facility] METHADONE SCREEN Specimen Type: URINE Comment: NATO test are qualitative, any L or H flags only indicate a [facility] alert was sent. Ordering Provider: KARLA LOYA Report Released Date/Time: Apr 20, 2024 08:58 AM Reporting Lab: [facility] [address] [address] Performing Lab: [facility] [address] [facility] [address] METHADONE SCREEN None detected(Nega tive) L Negative Jul 04, 2024 07:55 AM [facility] ALCOHOL, ETHYL URINE PANEL Specimen Type: URINE [...] Apr 20, 2024 08:58 AM Reporting Lab: [facility] [address] [address] Performing Lab: [address] [address] ALCOHOL, ETHYL URINE NONE-DETECTED mg/dL NONE-DETEC NBA, cutoff = 10 mg/dL PH, NATO 5.4 [pH] 4-10 CREATININE, NATO 123.15 mg/dL >20 SP.GRAVITY, NATO 1.026 H 1.00 3-1.02 0 Jul 04, 2024 07:55 AM [facility] FENTANYL SCREEN PANEL Specimen Type: URINE Comment: [...] Apr 20, 2024 08:58 AM Reporting Lab: [address] [address] Performing Lab: [address] [address] FENTANYL SCREEN NONE-DETECTE D ng/mL Negative: Cutoff = 1.00 ng/mL PH, NATO 5.4 [pH] 4-10 CREATININE, NATO 123.70 mg/dL >20 SP.GRAVITY, NATO 1.026 H 1.00 3-1.02 0 Jul 04, 2024 07:55 AM [facility] BENZODIAZEPINES SCREEN PANEL Specimen Type: URINE Comment: [...] Apr 20, 2024 08:58 AM Reporting Lab: [address] [address] Performing Lab: [address] [address] BENZODIAZEPINES SCREEN NONE-DETECTED None-Detec nba, Cutoff = 200 ng/mL PH, NATO 5.4 [pH] 4-10 CREATININE, NATO 123.15 mg/dL >20 SP.GRAVITY, NATO 1.026 H 1.00 3-1.02 0 Jul 04, 2024 07:55 AM [facility] AMPHETAMINES SCREEN PANEL Specimen Type: URINE Comment: [...] Apr 20, 2024 08:58 AM Reporting Lab: [address] [address] Performing Lab: [address] [address] AMPHETAMINES SCREEN NONE-DETECTED None-Detec nba, Cutoff = 1000 ng/mL PH, NATO 5.4 [pH] 4-10 CREATININE, NATO 123.15 mg/dL >20 SP.GRAVITY, NATO 1.026 H 1.00 3-1.02 0 Jul 04, 2024 07:55 AM [facility] CANNABINOIDS SCREEN PANEL Specimen Type: URINE Comment: [...] Apr 20, 2024 08:58 AM Reporting Lab: [address] [address] Performing Lab: [address] [address] CANNABINOIDS SCREEN NONE-DETECTED None-Detec nba,Cutoff = 50 ng/mL PH, NATO 5.4 [pH] 4-10 CREATININE, NATO 123.15 mg/dL >20 SP.GRAVITY, NATO 1.026 H 1.00 3-1.02 0 Jul 04, 2024 07:55 AM [facility] BUPRENORPHINE SCREEN PANEL Specimen Type: URINE Comment: [...] Apr 20, 2024 08:58 AM Reporting Lab: [address] [address] Performing Lab: [address] [address] BUPRENORPHINE (URINE) NONE-DETECTED None Detected, Cutoff = 10.0 ng/mL PH, NATO 5.4 [pH] 4-10 CREATININE, NATO 123.15 mg/dL >20 SP.GRAVITY, NATO 1.026 H 1.00 3-1.02 0 Jul 04, 2024 07:55 AM [facility] COCAINE SCREEN PANEL Specimen Type: URINE Comment: [...] Apr 20, 2024 08:58 AM Reporting Lab: [address] [address] Performing Lab: [address] [address] COCAINE SCREEN NONE-DETECTED N one-Detec nba,Cutoff = 300 ng/mL PH, NATO 5.4 [pH] 4-10 CREATININE, NATO 123.15 mg/dL >20 SP.GRAVITY, NATO 1.026 H 1.00 3-1.02 0 Jul 04, 2024 07:55 AM [facility] OPIATES SCREEN PANEL Specimen Type: URINE Comment: [...] Apr 20, 2024 08:58 AM Reporting Lab: [address] [address] Performing Lab: [address] [address] OPIATES SCREEN NONE-DETECTED N one-Detec nba, Cutoff = 300 ng/mL PH, NATO 5.4 [pH] 4-10 CREATININE, NATO 123.15 mg/dL >20 SP.GRAVITY, NATO 1.026 H 1.00 3-1.02 0 Jul 04, 2024 07:55 AM [facility] OXYCODONE SCREEN PANEL Specimen Type: URINE Comment: [...] Apr 20, 2024 08:58 AM Reporting Lab: [facility] [address] [facility] [address] Performing Lab: [facility] [address] [facility] [facility] [address] OXYCODONE SCREEN NONE-DETECTED None-Detec nba, Cutoff = 100 ng/mL PH, NATO 5.4 [pH] 4-10 CREATININE, NATO 123.15 mg/dL >20 SP.GRAVITY, NATO 1.026 H 1.00 3-1.02 0 Jul 04, 2024 07:51 AM [facility] [id number] PGx Specimen Type: BLOOD Comment: shipped on manifest [id number] Ordering Provider: ALYSHA MOY Report Released Date/Time: Apr 24, 2024 12:11 PM Reporting Lab: [facility] [address] [address] Performing Lab: [facility] [address] [facility] [address] [id number] PGx comment Jul 04, 2024 07:51 AM [facility] BASIC METABOLIC PANEL (fasting) Specimen Type: SERUM No comment entered. Ordering Provider: MELBA DOE Report Released Date/Time: Jan 06, 2024 03:34 PM Reporting Lab: [facility] [address] [address] Performing Lab: [address] [address] UREA NITROGEN 13 mg/dL 7-25 GLUCOSE 123 mg/dL H 65-100 SODIUM 138 mmol/L 135-145 POTASSIUM 4.7 mmol/L 3.5-5.0 CHLORIDE 103 mmol/L 100-110 CO2 27 meq/L 20-30 CREATININE, Serum 0.93 mg/dL 0.50-1.40 eGFR(CKD-EPI 2020) 89 mL/min >60 Jul 04, 2024 07:51 AM [facility] LIVER FUNCTION Specimen Type: SERUM No comment entered. Ordering Provider: MELBA DOE Report Released Date/Time: Jan 06, 2024 03:34 PM Reporting Lab: [facility] [address] [facility] [address] Performing Lab: [address] [address] PROTEIN,TOTAL 6.8 g/dL 6.0-8.3 ALBUMIN 4.2 g/dL 3.5-5.0 ALKALINE PHOSPHATASE 84 U/L 40-150 AST 19 U/L 5-34 ALT 27 U/L BILIRUBIN, TOTAL 0.3 mg/dL 0.2-1.2 Jul 04, 2024 07:51 AM [facility] CBC Specimen Type: BLOOD No comment entered. Ordering Provider: MELBA DOE Report Released Date/Time: Jan 06, 2024 03:34 PM Reporting Lab: [address] [address] Performing Lab: [address] [address] WBC 6.85 10*3/uL 4.50-11.00 RBC 4.76 10*6/uL [...] and tobacco- related health factors from the [place] facility where the Encounter took place. Current Smoking Status This section includes the most current smoking, or tobacco-related health factor, from the [place] facility where the Encounter took place. Date/Time Current Smoking Status Comment Nick kowalski Sep 04, 2021 02:56 PM VA-TOBACCO NEVER USED [facility] Encounter Notes: All associated encounter notes This section contains the clinical notes associated to the Encounter. Date/Time Encounter Note(s) Provider Source Jul 04, 2024 03:33 PM PHYSICAL THERAPY NOTE: LOCAL TITLE: ACTIVE INTERDISCIPLINARY SESSION NOTE STANDARD TITLE: PHYSICAL THERAPY NOTE DATE OF NOTE: JUL 04, 2024@15:33 ENTRY DATE: JUL 04, 2024@15:33:14 AUTHOR: CLARA ROJAS EXP COSIGNER: URGENCY: STATUS: COMPLETED ACTIVEMP INTERDISCIPLINARY SESSION NOTE Has ADDENDA AMP Interdisciplinary Group Parent Note: Session 5 AMP Provider/s facilitating todays session: Psychologist: Clara [...] small group, interdisciplinary, pain self-management program. This [place] has acknowledged awareness and acceptance of: 1. The privacy restraints regarding participation in small group sessions. 2. The need for respectful behavior toward other participants and providers. 3. The need to focus discussion to specific topics discussed during the session. 4. The limitations to individualization of care during sessions. [place] informed that individualized breakout sessions can be provided as deemed necessary by the AMP provider or as requested by the [place]. Number of Veterans in attendance for todays session: 5 Summary of Session 5: Behavioral Health and Physical Therapy providers co-facilitated this AMP session. Session started with a guided activity focused on noticing and bringing awareness to their present moment experience without doing anything else but noticing. Content from the previous week was reviewed and time was spent discussing home practice, including their efforts, observations, and needs. The topic of Mindful Awareness was discussed further in today session. Focused attention and detached non-judgmental observation were presented as two essential elements of mindful awareness that when used consistently, can help change the experience of pain. An additional mindful awareness practice was guided (Raisin Exercise) to encourage simple, every day mindful awareness practices. The use of technology, such as [place] approved smartphone applications for mindful awareness was encouraged. The second portion of this session focused on the topic of mindful movement. Mindful movement was presented as any physical activity that is performed with attention to breath in rhythm to slow, smooth, continuous, and fluid motion; the benefits of this practice were also discussed. Participants engaged in a mindful movement practice and were encouraged to use the Transformation Zone to assess their experience. Session ended with a review of take-home points and home practice expectations, including assigned worksheets. Plan: to follow up for session 6 of the AMP program. Further details regarding this session can be found in the attached notes for each discipline. /monisha/ CLARA ROJAS, PH.D. CLINICAL HEALTH PSYCHOLOGIST Signed: 07/04/2024 15:39 07/04/2024 ADDENDUM STATUS: COMPLETED [facility] Session Note AMP Interdisciplinary Group Session: 5 ======== Please see the session summary portion of [facility] AMP Interdisciplinary Parent Note for details describing the content, strategies, and skills taught during today session. Assessment/Plan: [Yes] Did the confirm completion (showed worksheets, returned, or verbally) of the home practice work sheets from the previous session? If applicable, please describe the barriers the communicated to completing the previous sessions worksheets: [Yes] [place] was an active participant and provided relevant and on topic contributions during today session. [Yes] The suicide and homicide risk were determined to be low for this [place] during todays session. [Yes] No other acute psychological distress was observed for this during todays session. [Yes] Continue with AMP upcoming treatment sessions. [No] Additional actions/recommendations are needed for this participating : /monisha/ CLARA ROJAS, PH.D. CLINICAL HEALTH PSYCHOLOGIST Signed: 07/05/2024 08:42 07/05/2024 ADDENDUM STATUS: COMPLETED Physical Therapy Note AMP Interdisciplinary Group Session: 5 ======== Please see the session summary portion of [facility] AMP Interdisciplinary Note for details describing the content, strategies, and skills taught during today session. Assessment/Plan: [NO] Did the require any [...] treatment sessions. [X] Additional comments: Ed shared catching himself this week before getting angry, he was able to go to his car to take some breaths rather than yelling at a retail coordinator. Ed actively participated in the mindful movement experiential today. He missed his last individual PT appointment and verbalized that he plans to call to reschedule. /monisha/ CRIS LAWTON DPT PHYSICAL THERAPIST Signed: 07/05/2024 11:51 [facility]
--- OUTSIDE RECORDS SUMMARY | 2024-07-31 10:47 | XMS_ITS ---
Author Name [facility] [place] Organization [facility] [place] Address [address] [place] [id number] Care Team Providers Care Broom Bundler Name Role Phone NADER MELBA Primary Care [...] PART B Feb 24, 2020 PART B [id number] STAR DOUGHERTY JR PATIENT MEDICARE (WNR) MEDICARE (M) PART A November 24, 2019 PART A [id number] STAR DOUGHERTY JR PATIENT OFFICE OF [facility] [employer] [employer] NO-FAULT INSURANCE NO FAULT May 12, 2022 NO FAULT [id number] [phone] STAR DOUGHERTY JR PATIENT FOR LIFE TFL* Feb 24, 2020 [id number] STAR DOUGHERTY JR PATIENT [facility] (WNR) TRICA RE(WN R) Jul 26, 2017 (WNR) [id number] ROSALES DOUGHERTY PATIENT Selected Encounter This section includes the information on record at [place] for the Encounter. Date/Time Encounter Type Encounter Description Reason Provider Source Jul 05, 2024 01:00 PM COMPRE OPH EXAM NEW PT 1/> OPTOMETRY ICD-10-CM H25.13 Age-related nuclear cataract, bilateral RUFINA FOSTER [place] Encounter Template Text not used by [place] Assessments - Encounter Diagnoses This section includes the primary and secondary diagnoses documented for the Encounter. Date/Time Primary/Secondary Diagnosis Diagnosis Name Provider Source Jul 05, 2024 02:06 PM PRIMARY Age-related nuclear cataract, bilateral RUFINA FOSTER [place] [facility] [facility] [place] [facility] [place] Jul 05, 2024 02:06 PM SECONDARY Esophoria RUFINA FOSTER [place] [facility] [facility] [place] Jul 05, 2024 02:06 PM SECONDARY Unspecified amblyopia, left eye RUFINA FOSTER [place] [facility] [facility] [place] Jul 05, 2024 02:06 PM SECONDARY Unspecified disorder of refraction RUFINA FOSTER [place] [facility] [facility] [place] Plan of Treatment: Future Appointments (+ 6 months) and Future Tests (+/- 45 days) The Plan of Treatment section includes future care activities for the patient [facility] [place] [facility] This section includes future appointments and future orders which are active, pending or scheduled. Future Appointments This section includes appointments that were scheduled to occur 6 months from the date of the Encounter, up to a maximum of 20 appointments. The data comes from all [place] treatment facilities. Appointment Date/Time Appointment Type Appointme nt Facility Name Jul 10, 2024 08:30 AM AMBULATORY [place]ICINE [place] [facility] [facility] [place] Jul 11, 2024 03:00 PM AMBULATORY - [place]CHIATRY [place] [facility] [facility] [place] Jul 31, 2024 10:30 AM AMBULATORY - NONE [place] [facility] [facility] [facility] [place] Aug 01, 2024 08:45 AM AMBULATORY - [place]ICINE [place] [facility] [place] Aug 01, 2024 09:00 AM AM[place]ULATORY [place]ICINE [place] [facility] [place] Aug 01, 2024 01:00 PM AM[place]ULATORY [place]ICINE [place] [facility] [place] Aug 08, 2024 01:00 PM AM[place]UL[place]ORY [place] [facility] [place] Aug 09, 2024 10:30 AM [facility] Aug 15, 2024 10:00 AM AMBULAT[facility] - MED[facility] Sep 14, 2024 11:30 AM [facility] Active, Pending, and Scheduled Orders This [...] Consult Order PSYCHOTHER SHERRY SWANSON/MAGED OUTPT Cons Chef Broiler Or Fry's Choice [facility] Lab Results: +/- 30 days of the encounter This section includes the Chemistry and Hematology Lab Results on record with [place] for the patient. Radiology Reports and Pathology Reports are provided separately, in subsequent sections. Lab Results This section contains the Chemistry/Hematology Results that were resulted 30 days before or 30 daysafter the date of the Encounter. Date/Time Source Result Type Result - Unit Interpretation Reference Range Comment Jul 04, 2024 07:55 AM [facility] METHADONE SCREEN Specimen Type: URINE Comment: NATO test are qualitative, any L or H flags only indicate a VA alert was sent. Ordering Provider: KARLA LOYA Report Released Date/Time: Apr 20, 2024 08:58 AM Reporting Lab: [facility] [address] [facility] [address] Performing Lab: [facility] [address] [facility] [address] METHADONE SCREEN None detected(Nega tive) L Negative Jul 04, 2024 07:55 AM [facility] ALCOHOL, ETHYL URINE PANEL Specimen Type: [...] Apr 20, 2024 08:58 AM Reporting Lab: [address] [address] Performing Lab: [address] [address] ALCOHOL, ETHYL URINE NONE-DETECTED mg/dL NONE-DETEC DINA, cutoff = 10 mg/dL PH, NATO 5.4 [pH] 4-10 CREATININE, NATO 123.15 mg/dL >20 SP.GRAVITY, NATO 1.026 H 1.00 3-1.02 0 Jul 04, 2024 07:55 AM [facility] AMPHETAMINES SCREEN PANEL Specimen Type: URINE [...] Apr 20, 2024 08:58 AM Reporting Lab: [address] [address] Performing Lab: [address] [address] AMPHETAMINES SCREEN NONE-DETECTED None-Detec dina, Cutoff = 1000 ng/mL PH, NATO 5.4 [pH] 4-10 CREATININE, NATO 123.15 mg/dL >20 SP.GRAVITY, NATO 1.026 H 1.00 3-1.02 0 Jul 04, 2024 07:55 AM [facility] BENZODIAZEPINES SCREEN PANEL Specimen Type: URINE [...] Apr 20, 2024 08:58 AM Reporting Lab: [address] [address] Performing Lab: [address] [address] BENZODIAZEPINES SCREEN NONE-DETECTED None-Detec dina, Cutoff = 200 ng/mL PH, NATO 5.4 [pH] 4-10 CREATININE, NATO 123.15 mg/dL >20 SP.GRAVITY, NATO 1.026 H 1.00 3-1.02 0 Jul 04, 2024 07:55 AM [facility] BUPRENORPHINE SCREEN PANEL Specimen Type: URINE [...] Apr 20, 2024 08:58 AM Reporting Lab: [address] [address] Performing Lab: [address] [address] BUPRENORPHINE (URINE) NONE-DETECTED None Detected, Cutoff = 10.0 ng/mL PH, NATO 5.4 [pH] 4-10 CREATININE, NATO 123.15 mg/dL >20 SP.GRAVITY, NATO 1.026 H 1.00 3-1.02 0 Jul 04, 2024 07:55 AM [facility] FENTANYL SCREEN PANEL Specimen Type: URINE [...] Apr 20, 2024 08:58 AM Reporting Lab: [address] [address] Performing Lab: [address] [address] FENTANYL SCREEN NONE-DETECTE D ng/mL Negative: Cutoff = 1.00 ng/mL PH, NATO 5.4 [pH] 4-10 CREATININE, NATO 123.70 mg/dL >20 SP.GRAVITY, NATO 1.026 H 1.00 3-1.02 0 Jul 04, 2024 07:55 AM [facility] CANNABINOIDS SCREEN PANEL Specimen Type: URINE [...] Apr 20, 2024 08:58 AM Reporting Lab: [address] [address] Performing Lab: [address] [address] CANNABINOIDS SCREEN NONE-DETECTED None-Detec dina,Cutoff = 50 ng/mL PH, NATO 5.4 [pH] 4-10 CREATININE, NATO 123.15 mg/dL >20 SP.GRAVITY, NATO 1.026 H 1.00 3-1.02 0 Jul 04, 2024 07:55 AM [facility] COCAINE SCREEN PANEL Specimen Type: URINE [...] Apr 20, 2024 08:58 AM Reporting Lab: [address] [address] Performing Lab: [address] [address] COCAINE SCREEN NONE-DETECTED N one-Detec dina,Cutoff = 300 ng/mL PH, NATO 5.4 [pH] 4-10 CREATININE, NATO 123.15 mg/dL >20 SP.GRAVITY, NATO 1.026 H 1.00 3-1.02 0 Jul 04, 2024 07:55 AM [facility] OXYCODONE SCREEN PANEL Specimen Type: URINE [...] Apr 20, 2024 08:58 AM Reporting Lab: [address] [address] Performing Lab: [address] [address] OXYCODONE SCREEN NONE-DETECTED None-Detec dina, Cutoff = 100 ng/mL PH, NATO 5.4 [pH] 4-10 CREATININE, NATO 123.15 mg/dL >20 SP.GRAVITY, NATO 1.026 H 1.00 3-1.02 0 Jul 04, 2024 07:55 AM [facility] OPIATES SCREEN PANEL Specimen Type: URINE [...] Apr 20, 2024 08:58 AM Reporting Lab: [address] [address] Performing Lab: [address] [address] OPIATES SCREEN NONE-DETECTED N one-Detec dina, Cutoff = 300 ng/mL PH, NATO 5.4 [pH] 4-10 CREATININE, NATO 123.15 mg/dL >20 SP.GRAVITY, NATO 1.026 H 1.00 3-1.02 0 Jul 04, 2024 07:51 AM [facility] [id number] PGx Specimen Type: BLOOD Comment: shipped on manifest [id number] Ordering Provider: ALYSHA MOY Report Released Date/Time: Apr 24, 2024 12:11 PM Reporting Lab: [facility] [address] [facility] [address] Performing Lab: [facility] [address] [facility] [address] [id number] PGx comment Jul 04, 2024 07:51 AM [facility] BASIC METABOLIC PANEL (fasting) Specimen Type: SERUM No comment entered. Ordering Provider: MELBA DOE Report Released Date/Time: Jan 06, 2024 03:34 PM Reporting Lab: [facility] [address] [facility] [address] Performing Lab: [address] [address] UREA NITROGEN 13 mg/dL 7-25 GLUCOSE 123 mg/dL H 65-100 SODIUM 138 mmol/L 135-145 POTASSIUM 4.7 mmol/L 3.5-5.0 CHLORIDE 103 mmol/L 100-110 CO2 27 meq/L 20-30 CREATININE, Serum 0.93 mg/dL 0.50-1.40 eGFR(CKD-EPI 2020) 89 mL/min >60 Jul 04, 2024 07:51 AM [facility] CBC Specimen Type: BLOOD No comment entered. Ordering Provider: MELBA DOE Report Released Date/Time: Jan 06, 2024 03:34 PM Reporting Lab: [address] [address] Performing Lab: [address] [address] WBC 6.85 10*3/uL 4.50-11.00 RBC 4.76 10*6/uL 4.23-5.66 HGB 15.1 g/dL 12.8-17 HCT 43.9 39.2-50.4 MCV 92.2 fL 82-99 MCHC 34.4 g/dL 30.8-35.1 PLT 248 10*3/uL 140-360 RDW-CV 12.4 12.0-16.0 MCH 31.7 pg 26.2-32.6 Jul 04, 2024 07:51 AM [facility] LIVER FUNCTION Specimen Type: SERUM No comment entered. Ordering Provider: MELBA DOE Report Released Date/Time: Jan 06, 2024 03:34 PM Reporting Lab: [address] [address] Performing Lab: [address] [address] PROTEIN,TOTAL 6.8 g/dL 6.0-8.3 ALBUMIN 4.2 g/dL 3.5-5.0 ALKALINE PHOSPHATASE 84 U/L 40-150 AST 19 U/L 5-34 ALT 27 U/L BILIRUBIN, TOTAL 0.3 mg/dL 0.2-1.2 Social History: Smoking Status (Most current) and [...] 04, 2021 02:56 PM VA-TOBACCO NEVER USED [facility] Encounter Notes: All associated encounter notes This section contains the clinical notes associated to the Encounter. Date/Time Encounter Note(s) Provider Source Jul 05, 2024 12:52 PM OPTOMETRY NOTE: LOCAL TITLE: OPTOMETRY NOTE(T) STANDARD TITLE: OPTOMETRY NOTE DATE OF NOTE: JUL 05, 2024@12:52 ENTRY DATE: JUL 05, 2024@12:52:26 AUTHOR: RUFINA FOSTER EXP COSIGNER: URGENCY: STATUS: COMPLETED I saw this patient in conjunction with the student and agree to the stated findings and plan after reviewing both history and repeating doyle elements of physical exam. Patient [place] exam at the [place] with history of nuclear sclerotic cataracts and most probable strabismic surgery as a child. Left eye is slightly more blurry than the right and is much more farsighted. He wears glasses on a regular basis and denies any history of eye injury or disease. Otherwise no other acute ocular disease was seen today. Ordered PAL. The patient will return in 12 months or sooner if any problems arise. /monisha/ RUFINA FOSTER OD STAFF PROGRAMMER ENGINEERING AND SCIENTIFIC Signed: 07/05/2024 14:06 RUFINA FOSTER [facility] Jul 05, 2024 09:51 AM OPTOMETRY NOTE: LOCAL TITLE: OPTOMETRY NOTE STANDARD TITLE: OPTOMETRY NOTE DATE OF NOTE: JUL 05, 2024@09:51 ENTRY DATE: JUL 05, 2024@09:51:45 AUTHOR: RUFINA LASSITER EXP COSIGNER: RUFINA FOSTER URGENCY: STATUS: COMPLETED Active problems - Computerized Problem List is the source for the followin. Exposure to potentially hazardous substance 2. Cervical radiculopathy 3. Tinnitus 4. Pain 5. Anxiety 6. Benign prostatic hyperplasia Active Outpatient Medications (including Supplies): Active Outpatient Medications Status = 1) ACETAMINOPHEN 500MG TAB TAKE TWO TABLETS BY MOUTH THREE ACTIVE TIMES DAILY NEEDED Indication: FOR PAIN 2) ATORVASTATIN CALCIUM 40MG TAB TAKE ONE-HALF TABLET BY MOUTH ACTIVE ONCE DAILY Indication: FOR HIGH CHOLESTEROL 3) BUPRENORPHINE 5MCG/HR PATCH APPLY 1 PATCH TO SKIN EVERY 7 ACTIVE DAYS (REMOVE PATCH BEFORE APPLYING A NEW PATCH) Indication: FOR PAIN 4) BUSPIRONE HCL 30MG TAB TAKE ONE TABLET BY MOUTH TWICE DAILY ACTIVE Indication: FOR ANXIETY 5) CYCLOBENZAPRINE HCL 10MG TAB TAKE ONE TABLET BY MOUTH ONCE ACTIVE DAILY NEEDED Indication: FOR MUSCLE SPASM 6) DICLOFENAC NA 1% TOP GEL APPLY 2 GRAMS TOPICALLY FOUR TIMES ACTIVE A DAY - USE DOSING CARD PROVIDED IN BOX Indication: FOR OSTEOARTHRITIS 7) FLUOXETINE HCL 20MG CAP TAKE TWO CAPSULES BY MOUTH ONCE ACTIVE DAILY FOR DEPRESSION AND Indication: ANXIETY 8) LIDOCAINE 5% PATCH APPLY 1 PATCH TOPICALLY ONCE DAILY ACTIVE NEEDED (LEAVE PATCH ON FOR 12 HOURS, THEN REMOVE PATCH) Indication: FOR NERVE PAIN 9) LORAZEPAM 0.5MG TAB TAKE ONE TABLET BY MOUTH ONCE DAILY ACTIVE NEEDED Indication: ANXIETY 10) MELOXICAM 15MG TAB TAKE ONE TABLET BY MOUTH ONCE DAILY ACTIVE (TAKE WITH FOOD) Indication: FOR JOINT INFLAMMATION 11) MIRTAZAPINE 30MG TAB TAKE ONE-HALF TABLET BY MOUTH AT ACTIVE BEDTIME FOR DEPRESSION/MOOD Indication: SLEEP 12) PREGABALIN 100MG ORAL CAP TAKE ONE CAPSULE BY MOUTH TWICE ACTIVE DAILY FOR Indication: ANXIETY Allergies: Patient has answered NKA All medications including those prescribed by outside VA's, community providers, and all OTC meds were reviewed and reconciled with patient to the best of their abilities. This 68 year old MALE is seen today for STELLA BELTRÁN: Over a year ago Chief Complaint: Patient complains of blurry vision at distance with current glasses. OHx: 1. History of strabismus and strabismus surgery Ocular Medications: (-) Pain: (-) GHOTRA: (-) Diplopia: (-) Flashes: (-) Floaters: (-) Amaurosis Fugax/Tia's: (-) Eye Injury: (-) Eye Surgery: corretive eye surgery when a small child (-) TBI FOHx: (-) Glaucoma/ARMD/Blindness VITALS (most recent, as listed in the electronic record): B/P: 136/78 (03/29/2024 08:58) Pulse: 69 (03/29/2024 08:58) Temperature: 97.5 F [36.4 C] (03/29/2024 08:58) Weight: 183 lb [83.01 kg] (03/29/2024 08:58) Height: 69 in [175.3 cm] (06/16/2023 08:42) BMI: BMI: 27.1 PERTINENT LABS: HEMOGLOBIN A1C TREND Collection DT Spec HGBA1c 08/02/2023 12:21 BLOOD 5.7 H 09/11/2021 09:00 BLOOD 5.6 (-) Smoker/Length of Time/PPD: none. Current Rx with last BCVA: OD: +1.75 -1.25 x100 OS: +4.00 -2.25 175 Add: +2.50 DVA ( )sc ( x )cc glasses OD: 20/25 OS: 20/50 Ph Pupils: PERRL (-)APD EOMs: SAFE OU, (-)Pain/Diplopia CVF (facial, peripheral): FTFC OU Subjective Refraction: OD: +2.00 -1.25 x100 20/20 OS: +4.00 -2.25 x175 20/30 Add: +2.50 20/20 Cover Test: D: Esotropia All the above performed by student, reviewed by attending Anterior segment: Performed by student, repeated by attending * Lids: dermatochalasis OU Conj: white and quiet OU Cornea: clear OU AC: D&Q OU Angles: 4x4 OU Iris: flat and clear OU Lens: +2 NSC OU Tonometry: Performed by student, reviewed by attending * [ x] GAT [ ] iCare OD 14 mmHg OS 15 mmHg Time: : Fundus exam: Dilated: XXX Non dilated: Dilating Drops: 1GTT 1 % Tropicamide OU & 1GTT 2.5% Phenylephrine OU (Pt. ed. on side effects, dilation warning given and verbal consent obtained) Patient advised not to drive if they feel they have any symptoms which could affect their ability to drive safely. Patient advised not to engage in any activities which could put themselves or others at risk if they feel they have any symptoms which could affect their ability to perform those activities safely. Performed by student, repeated by attending * Vit: clear OU C/D: 0.45 OD, 0.45 OS Macula: flat and clear OU PPole: clear A/V: 2/3 Vessels: normal caliber OU Periph: flat and intact (-)holes, tears, detachments 360 OU Assessment/Plan: 1. Nuclear sclerotoic Cataracts OU - Pt. ed. on findings - cataracts are not visually significant - surgery is not necessary at this time - Ed. on importance of UV protection and on symptoms of glare - Monitor 2. Combined forms Amblyopia - Pt. ed. on findings - Pt reports left eye has always been turned and had reduced vision. - Pt rports he had surgery as a child to correct the eye but it did not take - Pt. denies any double vision - Reduced BCVA due to ET and Anisometropic glasses rx. - Monitor 3. Hyperopia and presbyopia OU - Pt. ed. on todays findings - Is going to pick out new frames for PAL - Monitor Return to Clinic 1 year or earlier PRN [place] Education: After discussion and answering all 's questions, [place] demonstrated and verbalized understanding of diagnosis and treatment. Yes [x] No [ ] Patient Education: Diabetes: Patient was educated regarding diabetes and related ocular complications including retinopathy and cataract formation as well as other related systemic complications. The importance of good blood sugar control, blood sugar testing as recommended by their PCP and the importance of timely follow up were all emphasized. Glaucoma: Patient was educated regarding glaucoma/glaucoma suspect as well as the natural history of this diagnosis including prognosis. Stress importance of compliance and persistency with glaucoma medication when prescribed, timely follow up as well as the role of ancillary testing. Exclusion criteria for ancillary testing include significantly reduced acuity, mental status changes affecting the patient's ability to attend to the test or other physical limitations that would prohibit the patient's ability to participate in testing. Macular Degeneration: Patient was educated regarding macular degeneration including both wet and dry varieties as well as the natural history and prognosis of this condition. Education included the role of amsler grid testing , ocular nutraceutical therapy as well as diet and healthy lifestyle choices when applicable. Exclusion criteria includes extremely reduced acuity or cognitive decline for amsler grid testing and other coexisting systemic contraindication for supplements, diet and exercise. Medication Reconciliation: Outpatient: Has the patient been taking medications as documented in the EMLR? YES: The patient has been taking medications as documented in the EMLR. Essential Medication List for Review used to complete this medication reconciliation. INCLUDED IN THIS LIST: Alphabetical list of active outpatient prescriptions dispensed from this VA (local) and dispensed from another [place] or [place] facility (remote) as well as [...] whether with a VA or non-VA provider. EYE: Visual Function Reminder: Normal Vision: 20/25 or better: Unspecified disorder of refraction or accommodation (367.9). /monisha/ RUFINA LASSITER OPTOMETRY STUDENT Signed: 07/05/2024 14:39 /monisha/ RUFINA FOSTER OD STAFF PROGRAMMER ENGINEERING AND SCIENTIFIC Cosigned: 07/05/2024 14:44 RUFINA LASSITER [facility]
--- OUTSIDE RECORDS SUMMARY | 2024-07-31 10:47 | XMS_ITS | Encounter Summary ---
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 Date/Time Encounter Type Encounter Description Reason Provider Source Jul 05, 2024 03:21 PM FIT SPECTACLES MULTIFOCAL OPTOMETRY ICD-10-CM Z46.0 Encounter for fit/adjst of spectacles and contact lenses RUFINA FOSTER Encounter Template Text not used by [place] Assessments - Encounter Diagnoses This section includes the primary and secondary diagnoses documented for the Encounter. Date/Time Primary/Secondary Diagnosis Diagnosis Name Provider Source Jul 05, 2024 03:21 PM PRIMARY Encounter for fit/adjst of spectacles and contact lenses YULISA TUTTLE [place] [facility] [place] [facility] Plan of Treatment: Future Appointments (+ 6 months) and Future Tests (+/- 45 days) The Plan of Treatment section includes future care activities for the patient from all [place] [facility] This section includes future appointments and future [...] 10, 2024 08:30 AM AMBULATORY - MEDICINE [place] [facility] [place] [facility] Jul 11, 2024 03:00 PM AMBULATORY - PSYCHIATRY [place] [facility] [place] [facility] Jul 31, 2024 10:30 AM AMBULATORY - NONE [place] [facility] [place] [facility] Aug 01, 2024 08:45 AM AMBULATORY - MEDICINE [place] [facility] [place] [facility] Aug 01, 2024 09:00 AM AMBULATORY - MEDICINE [place] [facility] [place] [facility] Aug 01, 2024 01:00 PM AMBULATORY - MEDICINE [place] [facility] [place] [facility] Aug 08, 2024 01:00 PM AMBULATORY - MEDICINE [place] [facility] [place] [facility] Aug 09, 2024 10:30 AM AMBULATORY - PSYCHIATRY [place] [facility] [place] [facility] Aug 15, 2024 10:00 AM AMBULATORY - MEDICINE [place] [facility] [place] [facility] Sep 14, 2024 11:30 AM AMBULATORY - MEDICINE [facility] [place] [facility] Active, Pending, and Scheduled Orders This [...] Consult Order PSYCHOTHER SHERRY SWANSON/MAGED OUTPT Cons Telecommunications Sales Representative's Choice [facility] Lab Results: +/- 30 days of the encounter This section includes the Chemistry and Hematology Lab Results on record with [place] for the patient. Radiology Reports and Pathology [...] Apr 20, 2024 08:58 AM Reporting Lab: [facility] [address] [facility] [address] Performing Lab: [facility] [address] [facility] [address] METHADONE SCREEN None detected(Nega tive) L Negative Jul 04, 2024 07:55 AM [facility] ALCOHOL, ETHYL URINE PANEL Specimen Type: [...] Apr 20, 2024 08:58 AM Reporting Lab: [facility] [address] [facility] [address] Performing Lab: [address] [address] ALCOHOL, ETHYL URINE NONE-DETECTED mg/dL NONE-DETEC DINA, [...] 20, 2024 08:58 AM Reporting Lab: [address] [address] Performing Lab: [address] [address] AMPHETAMINES SCREEN NONE-DETECTED None-Detec dina, Cutoff = [...] 2024 08:58 AM Reporting Lab: [facility] [address] [address] Performing Lab: [address] [address] FENTANYL SCREEN NONE-DETECTE D ng/mL Negative: Cutoff [...] 20, 2024 08:58 AM Reporting Lab: [address] [address] Performing Lab: [address] [address] BENZODIAZEPINES SCREEN NONE-DETECTED None-Detec dina, Cutoff = [...] 20, 2024 08:58 AM Reporting Lab: [address] [address] Performing Lab: [address] [address] BUPRENORPHINE (URINE) NONE-DETECTED None Detected, Cutoff = [...] 20, 2024 08:58 AM Reporting Lab: [address] [address] Performing Lab: [address] [address] CANNABINOIDS SCREEN NONE-DETECTED None-Detec dina,Cutoff = 50 [...] 20, 2024 08:58 AM Reporting Lab: [address] [address] Performing Lab: [address] [address] COCAINE SCREEN NONE-DETECTED N one-Detec dina,Cutoff = [...] 20, 2024 08:58 AM Reporting Lab: [address] [address] Performing Lab: [address] [address] OPIATES SCREEN NONE-DETECTED N one-Detec dina, Cutoff [...] AM Reporting Lab: [facility] [address] [facility] [address] Performing Lab: [facility] [address] [facility] [address] OXYCODONE SCREEN NONE-DETECTED None-Detec dina, Cutoff = 100 ng/mL PH, NATO 5.4 [pH] 4-10 CREATININE, NATO 123.15 mg/dL >20 SP.GRAVITY, NATO 1.026 H 1.00 3-1.02 0 Jul 04, 2024 07:51 AM [facility] [id number] PGx Specimen Type: BLOOD Comment: shipped on manifest [id number] Ordering Provider: ALYSHA MOY Report Released Date/Time: Apr 24, 2024 12:11 PM Reporting Lab: [facility] [address] [facility] [address] Performing Lab: [facility] [address] [address] [id number] PGx comment Jul 04, 2024 07:51 AM [facility] BASIC METABOLIC PANEL (fasting) Specimen Type: SERUM No comment entered. Ordering Provider: MELBA DOE Report Released Date/Time: Jan 06, 2024 03:34 PM Reporting Lab: [facility] [address] [facility] [address] Performing Lab: [address] [address] UREA NITROGEN 13 mg/dL 7-25 GLUCOSE 123 [...] PM Reporting Lab: [facility] [address] [facility] [address] Performing Lab: [address] [address] PROTEIN,TOTAL 6.8 g/dL 6.0-8.3 ALBUMIN 4.2 g/dL 3.5-5.0 ALKALINE PHOSPHATASE 84 U/L 40-150 AST 19 U/L 5-34 ALT 27 U/L BILIRUBIN, TOTAL 0.3 mg/dL 0.2-1.2 Jul 04, 2024 07:51 AM [facility] CBC Specimen Type: BLOOD No comment entered. Ordering Provider: MELBA DOE Report Released Date/Time: Jan 06, 2024 03:34 PM Reporting Lab: [address] [address] Performing Lab: [address] [address] WBC 6.85 10*3/uL 4.50-11.00 RBC 4.76 10*6/uL [...] 04, 2021 02:56 PM VA-TOBACCO NEVER USED [facility] Encounter Notes: All associated encounter notes This section contains the clinical notes associated to the Encounter. Date/Time Encounter Note(s) Provider Source Jul 05, 2024 03:21 PM OPTOMETRY NOTE: LOCAL TITLE: OPTOMETRY NOTE STANDARD TITLE: OPTOMETRY NOTE DATE OF NOTE: JUL 05, 2024@15:21 ENTRY DATE: JUL 05, 2024@15:21:30 AUTHOR: FOZIA RICHMODN COSIGNER: URGENCY: STATUS: COMPLETED OPTOMETRY NOTE Has ADDENDA The quote provided below is for informational purposes only. Please verify prior to the creation of a purchase order. STAR DOUGHERTY JR 3214 RX INFORMATION OD +2.00 -1.25 X100 Add:+2.50 Pzm:0.00 Dir: Prz2:0.00 Dir2: OS +4.00 -2.25 X180 Add:+2.50 Pzm:0.00 Dir: Prz2:0.00 Dir2: FITTING INFORMATION FPD: NPD: Sully:R:28 L:28 SEG HT:R:23 L:23 Tint:ALVAREZ Shade:3 VA Billable Items FRAME: [address] [place], [place] [phone] Right Lens: TRIVEX VA PROGRESSIVE CLEAR TRIVEX Left Lens: TRIVEX VA PROGRESSIVE CLEAR TRIVEX SOLID TINT CLIN items 0004 - Progressive - Glass Plastic Poly 0007 - Glass PGX - Trivex - Hi Index Photo The quote provided below is for informational purposes only. Please verify prior to the creation of a purchase order. STAR DOUGHERTY JR 3214 RX INFORMATION OD +2.00 -1.25 X100 Add:+2.50 Pzm:0.00 Dir: Prz2:0.00 Dir2: OS +4.00 -2.25 X180 Add:+2.50 Pzm:0.00 Dir: Prz2:0.00 Dir2: FITTING INFORMATION FPD: NPD: Sully:R:28 L:28 SEG HT:R:23 L:23 Tint:None Shade:None VA Billable Items FRAME: [address] [place], [place] [id number] Right Lens: TRIVEX VA PROGRESSIVE CLEAR TRIVEX Left Lens: TRIVEX VA PROGRESSIVE CLEAR TRIVEX KLEAR ANTI-REFLECTIVE COATING CLIN items [employer] - AR Coating 0004 - Progressive - Glass Plastic Poly 0007 - Glass PGX - Trivex - Hi Index Photo /monisha/ FOZIA RICHMOND VIDEO CONTROL ENGINEER Signed: 07/05/2024 15:21 Receipt Acknowledged By: 07/05/2024 15:25 /monisha/ Yulisa Tuttle LPN Licensed Practical Nurse 07/05/2024 ADDENDUM STATUS: COMPLETED PDS band master fit 2 PAL eyeglasses on 07/05/2024. OPT HT entered consult(s) as requested for provider signature. /monisha/ Yulisa Tuttle LPN Licensed Practical Nurse Signed: 07/05/2024 15:27 FOZIA RICHMOND CNTRL WSN [facility]
--- OUTSIDE RECORDS SUMMARY | 2024-07-31 10:47 | XMS_ITS ---
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 Date/Time Encounter Type Encounter Description Reason Pro vider Source Jun 30, 2024 11:50 AM Outpatient Encounter PRIMARY CARE/MEDICINE IHE Encounter Template Text not used by [place] Plan of Treatment: Future Appointments (+ 6 months) and Future Tests (+/- 45 days) The Plan of Treatment section includes future care activities for the patient from all [place] [facility]. This section includes future appointments and future orders which are active, pending or scheduled. Future Appointments This section includes appointments that were scheduled to occur 6 months from the date of the Encounter, up to a maximum of 20 appointments. The data comes from all [facility]. Appointment Date/Time Appointment Type Appointme nt Facility Name Jul 04, 2024 01:00 PM AMBULATORY [place]ICINE [place] [facility] [facility] Jul 05, 2024 01:00 PM AMBULATORY - MEDICINE [place] [facility] [facility] Jul 10, 2024 08:30 AM AMBULATORY - MEDICINE [place] [facility] [facility] Jul 11, 2024 03:00 PM AMBULATORY - PSYCHIATRY [place] [facility] [place] [facility] Jul 31, 2024 10:30 AM AMBULATORY - NONE [facility] [place] [facility] Aug 01, 2024 08:45 AM AMBULATORY - MEDICINE [place] [facility] [facility] Aug 01, 2024 09:00 AM AMBULATORY - MEDICINE [place] [facility] [facility] Aug 01, 2024 01:00 PM AMBULATORY - MEDICINE [place] [facility] [facility] Aug 08, 2024 01:00 PM AMBULATORY - MEDICINE [place] [facility] [facility] Aug 09, 2024 10:30 AM AMBULATORY - PSYCHIATRY [place] [facility] [place] [facility] Aug 15, 2024 10:00 AM AMBULATORY - MEDICINE [place] [facility] [facility] Sep 14, 2024 11:30 AM AMBULATORY - MEDICINE [place] [facility] [facility] Active, Pending, and Scheduled Orders This section includes a listing of several types of active, pending, and scheduled orders, including clinic medications orders, diagnostic test orders, procedure orders and consult orders; where the start date of the order is 45 days before the date of the Encounter or 45 days after the date of theEncounter. The data comes from all [facility] treatment facilities. Test Date/Time Test Type Test Details Facility Name Jun 01, 2024 08:16 AM Consult Order PSYCHOTHER SHERRY SWANSON/MAGED OUTPT Cons Forming Roll Operator's Choice [facility] Lab Results: +/- 30 days of the [...] Range Comment Jul 04, 2024 07:55 AM [facility] METHADONE SCREEN Specimen Type: URINE Comment: NATO test are qualitative, any L or H flags only indicate a [facility] alert was sent. Ordering Provider: KARLA LOYA Report Released Date/Time: Apr 20, 2024 08:58 AM Reporting Lab: [facility] [address] [facility] [address] Performing Lab: [facility] [address] [facility] [address] METHADONE SCREEN None detected(Nega tive) L Negative Jul 04, 2024 07:55 AM [facility] ALCOHOL, ETHYL URINE PANEL Specimen Type: URINE [...] Apr 20, 2024 08:58 AM Reporting Lab: [facility] [address] [facility] [address] Performing Lab: [facility] [address] [facility] [address] ALCOHOL, ETHYL URINE NONE-DETECTED mg/dL NONE-DETEC NBA, cutoff = 10 mg/dL PH, NATO 5.4 [pH] 4-10 CREATININE, NATO 123.15 mg/dL >20 SP.GRAVITY, NATO 1.026 H 1.00 3-1.02 0 Jul 04, 2024 07:55 AM [facility] AMPHETAMINES SCREEN PANEL Specimen Type: URINE Comment: [...] Apr 20, 2024 08:58 AM Reporting Lab: [address] [address] Performing Lab: [address] [address] AMPHETAMINES SCREEN NONE-DETECTED None-Detec nba, Cutoff = 1000 ng/mL PH, NATO 5.4 [pH] 4-10 CREATININE, NATO 123.15 mg/dL >20 SP.GRAVITY, NATO 1.026 H 1.00 3-1.02 0 Jul 04, 2024 07:55 AM [facility] BENZODIAZEPINES SCREEN PANEL Specimen Type: URINE Comment: [...] Apr 20, 2024 08:58 AM Reporting Lab: [address] [address] Performing Lab: [address] [address] BENZODIAZEPINES SCREEN NONE-DETECTED None-Detec nba, Cutoff = 200 ng/mL PH, NATO 5.4 [pH] 4-10 CREATININE, NATO 123.15 mg/dL >20 SP.GRAVITY, NATO 1.026 H 1.00 3-1.02 0 Jul 04, 2024 07:55 AM [facility] FENTANYL SCREEN PANEL Specimen Type: URINE Comment: [...] Apr 20, 2024 08:58 AM Reporting Lab: [address] [address] Performing Lab: [address] [address] FENTANYL SCREEN NONE-DETECTE D ng/mL Negative: Cutoff = 1.00 ng/mL PH, NATO 5.4 [pH] 4-10 CREATININE, NATO 123.70 mg/dL >20 SP.GRAVITY, NATO 1.026 H 1.00 3-1.02 0 Jul 04, 2024 07:55 AM [facility] BUPRENORPHINE SCREEN PANEL Specimen Type: URINE Comment: [...] Apr 20, 2024 08:58 AM Reporting Lab: [address] [address] Performing Lab: [address] [address] BUPRENORPHINE (URINE) NONE-DETECTED None Detected, Cutoff = 10.0 ng/mL PH, NATO 5.4 [pH] 4-10 CREATININE, NATO 123.15 mg/dL >20 SP.GRAVITY, NATO 1.026 H 1.00 3-1.02 0 Jul 04, 2024 07:55 AM [facility] CANNABINOIDS SCREEN PANEL Specimen Type: URINE Comment: [...] Apr 20, 2024 08:58 AM Reporting Lab: [address] [address] Performing Lab: [address] [address] CANNABINOIDS SCREEN NONE-DETECTED None-Detec nba,Cutoff = 50 ng/mL PH, NATO 5.4 [pH] 4-10 CREATININE, NATO 123.15 mg/dL >20 SP.GRAVITY, NATO 1.026 H 1.00 3-1.02 0 Jul 04, 2024 07:55 AM [facility] COCAINE SCREEN PANEL Specimen Type: URINE Comment: [...] Apr 20, 2024 08:58 AM Reporting Lab: [address] [address] Performing Lab: [address] [place] [address] COCAINE SCREEN NONE-DETECTED N one-Detec nba,Cutoff = 300 ng/mL PH, NATO 5.4 [pH] 4-10 CREATININE, NATO 123.15 mg/dL >20 SP.GRAVITY, NATO 1.026 H 1.00 3-1.02 0 Jul 04, 2024 07:55 AM [facility] OPIATES SCREEN PANEL Specimen Type: URINE Comment: [...] Apr 20, 2024 08:58 AM Reporting Lab: [address] [address] Performing Lab: [address] [address] OPIATES SCREEN NONE-DETECTED N one-Detec nba, Cutoff = 300 ng/mL PH, NATO 5.4 [pH] 4-10 CREATININE, NATO 123.15 mg/dL >20 SP.GRAVITY, NATO 1.026 H 1.00 3-1.02 0 Jul 04, 2024 07:55 AM [facility] OXYCODONE SCREEN PANEL Specimen Type: URINE Comment: [...] Apr 20, 2024 08:58 AM Reporting Lab: [address] [address] Performing Lab: [facility] [address] [facility] [address] OXYCODONE SCREEN NONE-DETECTED None-Detec nba, Cutoff = 100 ng/mL PH, NATO 5.4 [pH] 4-10 CREATININE, NATO 123.15 mg/dL >20 SP.GRAVITY, NATO 1.026 H 1.00 3-1.02 0 Jul 04, 2024 07:51 AM [facility] [id number] PGx Specimen Type: BLOOD Comment: shipped on manifest [id number] Ordering Provider: ALYSHA MOY Report Released Date/Time: Apr 24, 2024 12:11 PM Reporting Lab: [facility] [address] [facility] [address] Performing Lab: [facility] [address] [facility] [address] [id number] PGx comment Jul 04, 2024 07:51 AM [facility] LIVER FUNCTION Specimen Type: SERUM No comment entered. Ordering Provider: MELBA DOE Report Released Date/Time: Jan 06, 2024 03:34 PM Reporting Lab: [address] [address] Performing Lab: [address] [address] PROTEIN,TOTAL 6.8 g/dL 6.0-8.3 ALBUMIN 4.2 g/dL 3.5-5.0 ALKALINE PHOSPHATASE 84 U/L 40-150 AST 19 U/L 5-34 ALT 27 U/L BILIRUBIN, TOTAL 0.3 mg/dL 0.2-1.2 Jul 04, 2024 07:51 AM [facility] BASIC METABOLIC PANEL (fasting) Specimen Type: SERUM No comment entered. Ordering Provider: MELBA DOE Report Released Date/Time: Jan 06, 2024 03:34 PM Reporting Lab: [address] [address] Performing Lab: [place] [address] [facility] [address] UREA NITROGEN 13 mg/dL 7-25 GLUCOSE 123 mg/dL H 65-100 SODIUM 138 mmol/L 135-145 POTASSIUM 4.7 mmol/L 3.5-5.0 CHLORIDE 103 mmol/L 100-110 CO2 27 meq/L 20-30 CREATININE, Serum 0.93 mg/dL 0.50-1.40 eGFR(CKD-EPI 2020) 89 mL/min >60 Jul 04, 2024 07:51 AM [facility] CBC Specimen Type: BLOOD No comment entered. Ordering Provider: MELBA DOE Report Released Date/Time: Jan 06, 2024 03:34 PM Reporting Lab: [facility] [address] [facility] [address] Performing Lab: [address] [address] WBC 6.85 10*3/uL 4.50-11.00 RBC 4.76 10*6/uL [...] 2021 02:56 PM VA-TOBACCO NEVER USED [facility] Encounter Notes: All associated encounter notes This section contains the clinical notes associated to the Encounter. Date/Time Encounter Note(s) Provider Source Jun 30, 2024 11:50 AM ADMINISTRATIVE NOTE: LOCAL TITLE: ADMINISTRATIVE NOTE STANDARD TITLE: ADMINISTRATIVE NOTE DATE OF NOTE: JUN 30, 2024@11:50 ENTRY DATE: JUN 30, 2024@11:51:10 AUTHOR: CAROLINA BARBER EXP COSIGNER: URGENCY: STATUS: COMPLETED AMSA CALLED ON THE TELEPHONE TO INFORM OF UPCOMING APPT AND THAT LABWORK IS NEEDED,HOWEVER THE CALL WAS NOT ANSWERED AND A MESSAGE WAS LEFT ON VOICEMAIL DESCRIBING UPCOMING APPOINTMENT DETAILS. /monisha/ CAROLINA BARBER AMSA Signed: 06/30/2024 11:51 CAROLINA BARBER [place] [facility]
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
--- OUTSIDE RECORDS SUMMARY | 2024-07-31 10:47 | XMS_ITS | Encounter Summary ---
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 Date/Time Encounter Type Encounter Description Reason Pro vider Source Jul 03, 2024 10:39 AM Outpatient Encounter PAIN CLINIC IHE Encounter Template Text not used by [place] Plan of Treatment: Future Appointments (+ 6 months) and Future Tests (+/- 45 days) The Plan of Treatment section includes future care activities for the patient from all [place] [facility]. This section includes future appointments and future orders which are active, pending or scheduled. Future Appointments This section includes appointments that were scheduled to occur 6 months from the date of the Encounter, up to a maximum of 20 appointments. The data comes from all [facility]. Appointment Date/Time Appointment Type Appointme nt Facility Name Jul 04, 2024 01:00 PM AMBULATORY - MEDICINE [place] [facility] [place] [facility] Jul 05, 2024 01:00 PM AMBULATORY - MEDICINE [place] [facility] [place] [facility] Jul 10, 2024 08:30 AM AMBULATORY - MEDICINE [place] [facility] [place] [facility] Jul 11, 2024 03:00 PM AMBULATORY - PSYCHIATRY [place] [facility] [place] [facility] Jul 31, 2024 10:30 AM AMBULATORY - NONE [place] [facility] [place] [facility] Aug 01, 2024 08:45 AM AMBULATORY - MEDICINE [place] [facility] [place] [facility] Aug 01, 2024 09:00 AM AMBULATORY - MEDICINE [place] [facility] [place] [facility] Aug 01, 2024 01:00 PM AMBULATORY - MEDICINE [place] [facility] [place] [facility] Aug 08, 2024 01:00 PM AMBULATORY - MEDICINE [place] [facility] [place] [facility] Aug 09, 2024 10:30 AM AMBULATORY - PSYCHIATRY [place] [facility] [place] [facility] Aug 15, 2024 10:00 AM AMBULATORY - MEDICINE [place] [facility] [place] [facility] Sep 14, 2024 11:30 AM AMBULATORY - MEDICINE [place] [facility] [place] [facility] Active, Pending, and Scheduled Orders This section [...] Consult Order PSYCHOTHER SHERRY SWANSON/MAGED OUTPT Cons Data Entry Associate's Choice [facility] Lab Results: +/- 30 days of the encounter This section includes the Chemistry and Hematology Lab Results on record with [place] for the patient. Radiology Reports and Pathology Reports are provided separately, in subsequent sections. Lab Results This section contains the Chemistry/Hematology Results that were resulted 30 days before or 30 daysafter the date of the Encounter. Date/Time Source Result Type Result - Unit Interpretation Reference Range Comment Jul 04, 2024 07:55 AM [facility] METHADONE SCREEN Specimen Type: URINE Comment: NATO test are qualitative, any L or H flags only indicate a [facility] alert was sent. Ordering Provider: KARLA LOYA Report Released Date/Time: Apr 20, 2024 08:58 AM Reporting Lab: [address] [address] Performing Lab: [facility] [address] [facility] [address] METHADONE SCREEN None detected(Nega tive) L Negative Jul 04, 2024 07:55 AM [facility] ALCOHOL, ETHYL URINE PANEL Specimen Type: [...] Apr 20, 2024 08:58 AM Reporting Lab: [facility] [address] [facility] [address] Performing Lab: [address] [address] ALCOHOL, ETHYL URINE NONE-DETECTED mg/dL NONE-DETEC DINA, cutoff = 10 mg/dL PH, NATO 5.4 [pH] 4-10 CREATININE, NATO 123.15 mg/dL >20 SP.GRAVITY, NATO 1.026 H 1.00 3-1.02 0 Jul 04, 2024 07:55 AM [facility] AMPHETAMINES SCREEN PANEL Specimen Type: URINE [...] Apr 20, 2024 08:58 AM Reporting Lab: [address] [address] Performing Lab: [address] [address] AMPHETAMINES SCREEN NONE-DETECTED None-Detec dina, Cutoff = 1000 ng/mL PH, NATO 5.4 [pH] 4-10 CREATININE, NATO 123.15 mg/dL >20 SP.GRAVITY, NATO 1.026 H 1.00 3-1.02 0 Jul 04, 2024 07:55 AM [facility] FENTANYL SCREEN PANEL Specimen Type: URINE [...] Apr 20, 2024 08:58 AM Reporting Lab: [address] [address] Performing Lab: [address] [address] FENTANYL SCREEN NONE-DETECTE D ng/mL Negative: Cutoff = 1.00 ng/mL PH, NATO 5.4 [pH] 4-10 CREATININE, NATO 123.70 mg/dL >20 SP.GRAVITY, NATO 1.026 H 1.00 3-1.02 0 Jul 04, 2024 07:55 AM [facility] BENZODIAZEPINES SCREEN PANEL Specimen Type: URINE [...] Apr 20, 2024 08:58 AM Reporting Lab: [address] [address] Performing Lab: [address] [address] BENZODIAZEPINES SCREEN NONE-DETECTED None-Detec dina, Cutoff = 200 ng/mL PH, NATO 5.4 [pH] 4-10 CREATININE, NATO 123.15 mg/dL >20 SP.GRAVITY, NATO 1.026 H 1.00 3-1.02 0 Jul 04, 2024 07:55 AM [facility] BUPRENORPHINE SCREEN PANEL Specimen Type: URINE [...] Apr 20, 2024 08:58 AM Reporting Lab: [address] [address] Performing Lab: [address] [address] BUPRENORPHINE (URINE) NONE-DETECTED None Detected, Cutoff = 10.0 ng/mL PH, NATO 5.4 [pH] 4-10 CREATININE, NATO 123.15 mg/dL >20 SP.GRAVITY, NATO 1.026 H 1.00 3-1.02 0 Jul 04, 2024 07:55 AM [facility] CANNABINOIDS SCREEN PANEL Specimen Type: URINE [...] Apr 20, 2024 08:58 AM Reporting Lab: [address] [address] Performing Lab: [address] [address] CANNABINOIDS SCREEN NONE-DETECTED None-Detec dina,Cutoff = 50 ng/mL PH, NATO 5.4 [pH] 4-10 CREATININE, NATO 123.15 mg/dL >20 SP.GRAVITY, NATO 1.026 H 1.00 3-1.02 0 Jul 04, 2024 07:55 AM [facility] COCAINE SCREEN PANEL Specimen Type: URINE [...] Apr 20, 2024 08:58 AM Reporting Lab: [address] [address] Performing Lab: [address] [address] COCAINE SCREEN NONE-DETECTED N one-Detec dina,Cutoff = 300 ng/mL PH, NATO 5.4 [pH] 4-10 CREATININE, NATO 123.15 mg/dL >20 SP.GRAVITY, NATO 1.026 H 1.00 3-1.02 0 Jul 04, 2024 07:55 AM [facility] OPIATES SCREEN PANEL Specimen Type: URINE [...] Apr 20, 2024 08:58 AM Reporting Lab: [address] [address] Performing Lab: [address] [address] OPIATES SCREEN NONE-DETECTED N one-Detec dina, Cutoff = 300 ng/mL PH, NATO 5.4 [pH] 4-10 CREATININE, NATO 123.15 mg/dL >20 SP.GRAVITY, NATO 1.026 H 1.00 3-1.02 0 Jul 04, 2024 07:55 AM [facility] OXYCODONE SCREEN PANEL Specimen Type: URINE [...] Apr 20, 2024 08:58 AM Reporting Lab: [address] [address] Performing Lab: [facility] [address] [facility] [address] OXYCODONE SCREEN NONE-DETECTED None-Detec dina, Cutoff = 100 ng/mL PH, NATO 5.4 [pH] 4-10 CREATININE, NATO 123.15 mg/dL >20 SP.GRAVITY, NATO 1.026 H 1.00 3-1.02 0 Jul 04, 2024 07:51 AM [facility] [id number] PGx Specimen Type: BLOOD Comment: shipped on manifest [id number] Ordering Provider: ALYSHA MOY Report Released Date/Time: Apr 24, 2024 12:11 PM Reporting Lab: [facility] [address] [facility] [address] Performing Lab: [facility] [address] [facility] [address] [id number] PGx comment Jul 04, 2024 07:51 AM [facility] BASIC METABOLIC PANEL (fasting) Specimen Type: SERUM No comment entered. Ordering Provider: MELBA DOE Report Released Date/Time: Jan 06, 2024 03:34 PM Reporting Lab: [facility] [address] [facility] [address] Performing Lab: [address] [address] UREA NITROGEN 13 mg/dL 7-25 GLUCOSE 123 mg/dL H 65-100 SODIUM 138 mmol/L 135-145 POTASSIUM 4.7 mmol/L 3.5-5.0 CHLORIDE 103 mmol/L 100-110 CO2 27 meq/L 20-30 CREATININE, Serum 0.93 mg/dL 0.50-1.40 eGFR(CKD-EPI 2020) 89 mL/min >60 Jul 04, 2024 07:51 AM [facility] LIVER FUNCTION Specimen Type: SERUM No comment entered. Ordering Provider: MELBA DOE Report Released Date/Time: Jan 06, 2024 03:34 PM Reporting Lab: [address] [address] Performing Lab: [facility] [address] [facility] [address] PROTEIN,TOTAL 6.8 g/dL 6.0-8.3 ALBUMIN 4.2 g/dL 3.5-5.0 ALKALINE PHOSPHATASE 84 U/L 40-150 AST 19 U/L 5-34 ALT 27 U/L BILIRUBIN, TOTAL 0.3 mg/dL 0.2-1.2 Jul 04, 2024 07:51 AM [facility] CBC Specimen Type: BLOOD No comment entered. Ordering Provider: MELBA DOE Report Released Date/Time: Jan 06, 2024 03:34 PM Reporting Lab: [facility] [address] [facility] [address] Performing Lab: [facility] [address] [address] WBC 6.85 10*3/uL 4.50-11.00 RBC 4.76 10*6/uL [...] 04, 2021 02:56 PM [facility]-TOBACCO NEVER USED [facility] Encounter Notes: All associated encounter notes This section contains the clinical notes associated to the Encounter. Date/Time Encounter Note(s) Provider Source Jul 03, 2024 10:39 AM TELEPHONE ENCOUNTE R NOTE: LOCAL TITLE: TELEPHONE NOTE/SPECIALTY CLINIC STANDARD TITLE: TELEPHONE ENCOUNTER NOTE DATE OF NOTE: JUL 03, 2024@10:39 ENTRY DATE: JUL 03, 2024@10:39:39 AUTHOR: JONATHAN MARI EXP COSIGNER: URGENCY: STATUS: COMPLETED Called and spoke with pt to remind them that they have a FTF appt with the Pain clinic on 07/04/2024 at 1300. New location was confirmed /monisha/ JONATHAN MARI ADVANCED KNIT GOODS CUTTER HAND Signed: 07/03/2024 10:40 JONATHAN MARI [place] [facility]
--- OUTSIDE RECORDS SUMMARY | 2024-07-31 10:47 | XMS_ITS | Encounter Summary ---
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 Date/Time Encounter Type Encounter Description Reason Pro vider Source Jun 26, 2024 09:53 AM Outpatient Encounter PAIN CLINIC IHE Encounter Template Text not used by [place] Plan of Treatment: Future Appointments (+ 6 months) and Future Tests (+/- 45 days) The Plan of Treatment section includes future care activities for the patient from all [place] [facility] This section includes future appointments [...] - MEDICINE [place] [facility] [place] [facility] Jul 04, 2024 01:00 PM AMBULATORY - MEDICINE [place] [facility] [place] [facility] Jul 05, 2024 01:00 PM AMBULATORY - MEDICINE [place] [facility] [place] [facility] Jul 10, 2024 08:30 AM AMBULATORY - MEDICINE [place] [facility] [place] [facility] Jul 11, 2024 03:00 PM AMBULATORY - PSYCHIATRY [place] [facility] [place] [facility] Jul 31, 2024 10:30 AM AMBULATORY - NONE [facility] [place] [facility] Aug 01, 2024 08:45 AM AMBULATORY - MEDICINE [place] [facility] [place] [facility] Aug 01, 2024 09:00 AM AMBULATORY - MEDICINE [place] [facility] [place] [facility] Aug 01, 2024 01:00 PM AMBULATORY - MEDICINE [place] [facility] [place] [facility] Aug 08, 2024 01:00 PM AMBULATORY - MEDICINE [place] [facility] [place] [facility] Aug 09, 2024 10:30 AM AMBULATORY - PSYCHIATRY [facility] [place] [facility] Aug 15, 2024 10:00 AM AMBULATORY - MEDICINE [facility] [place] [facility] Sep 14, 2024 11:30 AM AMBULATORY - MEDICINE [place] [facility] [place] [facility] Active, Pending, and Scheduled Orders [...] Consult Order PSYCHOTHER SHERRY SWANSON/MAGED OUTPT Cons Thread Grinder Tool's Choice [facility] Lab Results: +/- 30 days of [...] Range Comment Jul 04, 2024 07:55 AM [facility] METHADONE SCREEN Specimen Type: URINE Comment: NATO test are qualitative, any L or H flags only indicate a [facility] alert was sent. Ordering Provider: KARLA LOYA Report Released Date/Time: Apr 20, 2024 08:58 AM Reporting Lab: [facility] [address] [facility] [address] Performing Lab: [facility] [address] [facility] [address] METHADONE SCREEN None detected(Nega tive) L Negative Jul 04, 2024 07:55 AM [facility] ALCOHOL, ETHYL URINE PANEL Specimen Type: [...] Apr 20, 2024 08:58 AM Reporting Lab: [facility] [address] [facility] [address] Performing Lab: [address] [address] ALCOHOL, ETHYL URINE NONE-DETECTED mg/dL NONE-DETEC DINA, cutoff = 10 mg/dL PH, NATO 5.4 [pH] 4-10 CREATININE, NATO 123.15 mg/dL >20 SP.GRAVITY, NATO 1.026 H 1.00 3-1.02 0 Jul 04, 2024 07:55 AM [facility] AMPHETAMINES SCREEN PANEL Specimen Type: URINE [...] Apr 20, 2024 08:58 AM Reporting Lab: [address] [address] Performing Lab: [address] [address] AMPHETAMINES SCREEN NONE-DETECTED None-Detec dina, Cutoff = 1000 ng/mL PH, NATO 5.4 [pH] 4-10 CREATININE, NATO 123.15 mg/dL >20 SP.GRAVITY, NATO 1.026 H 1.00 3-1.02 0 Jul 04, 2024 07:55 AM [facility] FENTANYL SCREEN PANEL Specimen Type: URINE [...] Apr 20, 2024 08:58 AM Reporting Lab: [address] [address] Performing Lab: [address] [place] [address] FENTANYL SCREEN NONE-DETECTE D ng/mL Negative: Cutoff = 1.00 ng/mL PH, NATO 5.4 [pH] 4-10 CREATININE, NATO 123.70 mg/dL >20 SP.GRAVITY, NATO 1.026 H 1.00 3-1.02 0 Jul 04, 2024 07:55 AM [facility] BENZODIAZEPINES SCREEN PANEL Specimen Type: URINE [...] Apr 20, 2024 08:58 AM Reporting Lab: [address] [address] Performing Lab: [address] [address] BENZODIAZEPINES SCREEN NONE-DETECTED None-Detec dina, Cutoff = 200 ng/mL PH, NATO 5.4 [pH] 4-10 CREATININE, NATO 123.15 mg/dL >20 SP.GRAVITY, NATO 1.026 H 1.00 3-1.02 0 Jul 04, 2024 07:55 AM [facility] BUPRENORPHINE SCREEN PANEL Specimen Type: URINE [...] Apr 20, 2024 08:58 AM Reporting Lab: [address] [address] Performing Lab: [address] [address] BUPRENORPHINE (URINE) NONE-DETECTED None Detected, Cutoff = 10.0 ng/mL PH, NATO 5.4 [pH] 4-10 CREATININE, NATO 123.15 mg/dL >20 SP.GRAVITY, NATO 1.026 H 1.00 3-1.02 0 Jul 04, 2024 07:55 AM [facility] CANNABINOIDS SCREEN PANEL Specimen Type: URINE [...] Apr 20, 2024 08:58 AM Reporting Lab: [address] [address] Performing Lab: [address] [address] CANNABINOIDS SCREEN NONE-DETECTED None-Detec dina,Cutoff = 50 ng/mL PH, NATO 5.4 [pH] 4-10 CREATININE, NATO 123.15 mg/dL >20 SP.GRAVITY, NATO 1.026 H 1.00 3-1.02 0 Jul 04, 2024 07:55 AM [facility] COCAINE SCREEN PANEL Specimen Type: URINE [...] Apr 20, 2024 08:58 AM Reporting Lab: [address] [address] Performing Lab: [address] [address] COCAINE SCREEN NONE-DETECTED N one-Detec dina,Cutoff = 300 ng/mL PH, NATO 5.4 [pH] 4-10 CREATININE, NATO 123.15 mg/dL >20 SP.GRAVITY, NATO 1.026 H 1.00 3-1.02 0 Jul 04, 2024 07:55 AM [facility] OPIATES SCREEN PANEL Specimen Type: URINE [...] Apr 20, 2024 08:58 AM Reporting Lab: [address] [address] Performing Lab: [address] [address] OPIATES SCREEN NONE-DETECTED N one-Detec dina, Cutoff = 300 ng/mL PH, NATO 5.4 [pH] 4-10 CREATININE, NATO 123.15 mg/dL >20 SP.GRAVITY, NATO 1.026 H 1.00 3-1.02 0 Jul 04, 2024 07:55 AM [facility] OXYCODONE SCREEN PANEL Specimen Type: URINE [...] Apr 20, 2024 08:58 AM Reporting Lab: [facility] [address] [facility] [address] Performing Lab: [facility] [address] [facility] [address] OXYCODONE SCREEN NONE-DETECTED None-Detec dina, Cutoff = 100 ng/mL PH, NATO 5.4 [pH] 4-10 CREATININE, NATO 123.15 mg/dL >20 SP.GRAVITY, NATO 1.026 H 1.00 3-1.02 0 Jul 04, 2024 07:51 AM [facility] [id number] PGx Specimen Type: BLOOD Comment: shipped on manifest [id number] Ordering Provider: ALYSHA MOY Report Released Date/Time: Apr 24, 2024 12:11 PM Reporting Lab: [facility] [address] [facility] [address] Performing Lab: [facility] [address] [facility] [address] [id number] PGx comment Jul 04, 2024 07:51 AM [facility] BASIC METABOLIC PANEL (fasting) Specimen Type: SERUM No comment entered. Ordering Provider: MELBA DOE Report Released Date/Time: Jan 06, 2024 03:34 PM Reporting Lab: [facility] [address] [facility] [address] Performing Lab: [address] [address] UREA NITROGEN 13 mg/dL 7-25 GLUCOSE 123 mg/dL H 65-100 SODIUM 138 mmol/L 135-145 POTASSIUM 4.7 mmol/L 3.5-5.0 CHLORIDE 103 mmol/L 100-110 CO2 27 meq/L 20-30 CREATININE, Serum 0.93 mg/dL 0.50-1.40 eGFR(CKD-EPI 2020) 89 mL/min >60 Jul 04, 2024 07:51 AM [facility] LIVER FUNCTION Specimen Type: SERUM No comment entered. Ordering Provider: MELBA DOE Report Released Date/Time: Jan 06, 2024 03:34 PM Reporting Lab: [facility] [address] [facility] [address] Performing Lab: [facility] [address] [facility] [address] PROTEIN,TOTAL 6.8 g/dL 6.0-8.3 ALBUMIN 4.2 g/dL 3.5-5.0 ALKALINE PHOSPHATASE 84 U/L 40-150 AST 19 U/L 5-34 ALT 27 U/L BILIRUBIN, TOTAL 0.3 mg/dL 0.2-1.2 Jul 04, 2024 07:51 AM [facility] CBC Specimen Type: BLOOD No comment entered. Ordering Provider: MELBA DOE Report Released Date/Time: Jan 06, 2024 03:34 PM Reporting Lab: [facility] [address] [facility] [address] Performing Lab: [address] [address] WBC 6.85 10*3/uL 4.50-11.00 RBC 4.76 10*6/uL [...] 04, 2021 02:56 PM [facility]TOBACCO NEVER [facility]ED [facility] Encounter Notes: All associated encounter notes This section contains the clinical notes associated to the Encounter. Date/Time Encounter Note(s) Provider Source Jun 26, 2024 09:53 AM TELEPHONE ENCOUNTE R NOTE: LOCAL TITLE: TELEPHONE NOTE/SPECIALTY CLINIC STANDARD TITLE: TELEPHONE ENCOUNTER NOTE DATE OF NOTE: JUN 26, 2024@09:53 ENTRY DATE: JUN 26, 2024@09:54:20 AUTHOR: JONATHAN MARI EXP COSIGNER: URGENCY: STATUS: COMPLETED Called and spoke with pt to remind them that they have a FTF appt with the Pain clinic on 06/27/2024 at 1300. New location was confirmed /monisha/ JONATHAN MARI ADVANCED TOUR DIRECTOR Signed: 06/26/2024 09:54 JONATHAN MARI [facility]
--- OUTSIDE RECORDS SUMMARY | 2024-07-31 10:47 | XMS_ITS | Encounter Summary ---
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 Date/Time Encounter Type Encounter Description Reason Pro vider Source Jun 20, 2024 01:44 PM Outpatient Encounter PM&RS PHYSICIAN IHE Encounter Template Text not used by [place] Plan of Treatment: Future Appointments (+ 6 months) and Future Tests (+/- 45 days) The Plan of Treatment section includes future care activities for the patient [facility] [place] [facility] This section includes future appointments and [...] 27, 2024 01:00 PM AMBULATORY - [place]ICINE [place] [facility] [place] [facility] Jul 04, 2024 01:00 PM AM[place]UL[place]ORY [place]ICINE [place] [facility] [facility] Jul 05, 2024 01:00 PM [place]ORY [place]ICINE [place] [facility] [facility] Jul 10, 2024 08:30 AM [place]ORY [place]ICINE [place] [facility] [facility] Jul 11, 2024 03:00 PM AMBULATORY - PS[place]CHIATRY [place] [facility] [place] [facility] Jul 31, 2024 10:30 AM AMBULATORY - NONE [place] [facility] [place] [facility] Aug 01, 2024 08:45 AM AM[place]UL[place]ORY [place]ICINE [place] [facility] [facility] Aug 01, 2024 09:00 AM [place]ORY [place]ICINE [place] [facility] [facility] Aug 01, 2024 01:00 PM AM[place]ORY [place]ICINE [place] [facility] [facility] Aug 08, 2024 01:00 PM AM[place]ULATORY [place]ICINE [place] [facility] [facility] Aug 09, 2024 10:30 AM AMBULATORY - PS[place]CHIATRY [place] [facility] [place] [facility] Aug 15, 2024 10:00 AM AM[place]UL[place]ORY [place]ICINE [place] [facility] [facility] Sep 14, 2024 11:30 AM AM[place]UL[place]ORY - [place]ICINE [place] [facility] [facility] Active, Pending, and Scheduled Orders [...] Consult Order PSYCHOTHER SHERRY SWANSON/MAGED OUTPT Cons Tobacco Packing Machine Operator's Choice [facility] Lab Results: +/- 30 days [...] Range Comment Jul 04, 2024 07:55 AM [facility] METHADONE SCREEN Specimen Type: URINE Comment: NATO test are qualitative, any L or H flags only indicate a [facility] alert was sent. Ordering Provider: KARLA LOYA Report Released Date/Time: Apr 20, 2024 08:58 AM Reporting Lab: [facility] [address] [facility] [address] Performing Lab: [facility] [address] [facility] [address] METHADONE SCREEN None detected(Nega tive) L Negative Jul 04, 2024 07:55 AM [facility] ALCOHOL, ETHYL URINE PANEL Specimen [...] Apr 20, 2024 08:58 AM Reporting Lab: [facility] [address] [facility] [address] Performing Lab: [facility] [address] [facility] [address] ALCOHOL, ETHYL URINE NONE-DETECTED mg/dL NONE-DETEC NBA, cutoff = 10 mg/dL PH, NATO 5.4 [pH] 4-10 CREATININE, NATO 123.15 mg/dL >20 SP.GRAVITY, NATO 1.026 H 1.00 3-1.02 0 Jul 04, 2024 07:55 AM [facility] AMPHETAMINES SCREEN PANEL Specimen Type: [...] Apr 20, 2024 08:58 AM Reporting Lab: [address] [address] Performing Lab: [address] [address] AMPHETAMINES SCREEN NONE-DETECTED None-Detec nba, Cutoff = 1000 ng/mL PH, NATO 5.4 [pH] 4-10 CREATININE, NATO 123.15 mg/dL >20 SP.GRAVITY, NATO 1.026 H 1.00 3-1.02 0 Jul 04, 2024 07:55 AM [facility] FENTANYL SCREEN PANEL Specimen Type: [...] Apr 20, 2024 08:58 AM Reporting Lab: [address] [address] Performing Lab: [facility] [address] [address] FENTANYL SCREEN NONE-DETECTE D ng/mL Negative: Cutoff = 1.00 ng/mL PH, NATO 5.4 [pH] 4-10 CREATININE, NATO 123.70 mg/dL >20 SP.GRAVITY, NATO 1.026 H 1.00 3-1.02 0 Jul 04, 2024 07:55 AM [facility] BUPRENORPHINE SCREEN PANEL Specimen Type: [...] Apr 20, 2024 08:58 AM Reporting Lab: [address] [address] Performing Lab: [address] [address] BUPRENORPHINE (URINE) NONE-DETECTED None Detected, Cutoff = 10.0 ng/mL PH, NATO 5.4 [pH] 4-10 CREATININE, NATO 123.15 mg/dL >20 SP.GRAVITY, NATO 1.026 H 1.00 3-1.02 0 Jul 04, 2024 07:55 AM [facility] BENZODIAZEPINES SCREEN PANEL Specimen Type: [...] Apr 20, 2024 08:58 AM Reporting Lab: [address] [address] Performing Lab: [address] [address] BENZODIAZEPINES SCREEN NONE-DETECTED None-Detec nba, Cutoff = 200 ng/mL PH, NATO 5.4 [pH] 4-10 CREATININE, NATO 123.15 mg/dL >20 SP.GRAVITY, NATO 1.026 H 1.00 3-1.02 0 Jul 04, 2024 07:55 AM [facility] CANNABINOIDS SCREEN PANEL Specimen Type: [...] Apr 20, 2024 08:58 AM Reporting Lab: [address] [address] Performing Lab: [address] [address] CANNABINOIDS SCREEN NONE-DETECTED None-Detec nba,Cutoff = 50 ng/mL PH, NATO 5.4 [pH] 4-10 CREATININE, NATO 123.15 mg/dL >20 SP.GRAVITY, NATO 1.026 H 1.00 3-1.02 0 Jul 04, 2024 07:55 AM [facility] COCAINE SCREEN PANEL Specimen Type: [...] Apr 20, 2024 08:58 AM Reporting Lab: [address] [address] Performing Lab: [address] [address] COCAINE SCREEN NONE-DETECTED N one-Detec nba,Cutoff = 300 ng/mL PH, NATO 5.4 [pH] 4-10 CREATININE, NATO 123.15 mg/dL >20 SP.GRAVITY, NATO 1.026 H 1.00 3-1.02 0 Jul 04, 2024 07:55 AM [facility] OPIATES SCREEN PANEL Specimen Type: [...] Apr 20, 2024 08:58 AM Reporting Lab: [address] [address] Performing Lab: [address] [address] OPIATES SCREEN NONE-DETECTED N one-Detec nba, Cutoff = 300 ng/mL PH, NATO 5.4 [pH] 4-10 CREATININE, NATO 123.15 mg/dL >20 SP.GRAVITY, NATO 1.026 H 1.00 3-1.02 0 Jul 04, 2024 07:55 AM [facility] OXYCODONE SCREEN PANEL Specimen Type: [...] Apr 20, 2024 08:58 AM Reporting Lab: [facility] [address] [facility] [address] Performing Lab: [facility] [address] [facility] [address] OXYCODONE SCREEN NONE-DETECTED None-Detec nba, Cutoff = 100 ng/mL PH, NATO 5.4 [pH] 4-10 CREATININE, NATO 123.15 mg/dL >20 SP.GRAVITY, NATO 1.026 H 1.00 3-1.02 0 Jul 04, 2024 07:51 AM [facility] [id number] PGx Specimen Type: BLOOD Comment: shipped on manifest [id number] Ordering Provider: ALYSHA MOY Report Released Date/Time: Apr 24, 2024 12:11 PM Reporting Lab: [facility] [address] [facility] [address] Performing Lab: [facility] [address] [facility] [address] [id number] PGx comment Jul 04, 2024 07:51 AM [facility] LIVER FUNCTION Specimen Type: SERUM No comment entered. Ordering Provider: MELBA DOE Report Released Date/Time: Jan 06, 2024 03:34 PM Reporting Lab: [address] [address] Performing Lab: [address] [address] PROTEIN,TOTAL 6.8 g/dL 6.0-8.3 ALBUMIN 4.2 g/dL 3.5-5.0 ALKALINE PHOSPHATASE 84 U/L 40-150 AST 19 U/L 5-34 ALT 27 U/L BILIRUBIN, TOTAL 0.3 mg/dL 0.2-1.2 Jul 04, 2024 07:51 AM [facility] BASIC METABOLIC PANEL (fasting) Specimen Type: SERUM No comment entered. Ordering Provider: MELBA DOE Report Released Date/Time: Jan 06, 2024 03:34 PM Reporting Lab: [address] [place] [address] Performing Lab: [facility] [address] [facility] [address] UREA NITROGEN 13 mg/dL 7-25 GLUCOSE 123 mg/dL H 65-100 SODIUM 138 mmol/L 135-145 POTASSIUM 4.7 mmol/L 3.5-5.0 CHLORIDE 103 mmol/L 100-110 CO2 27 meq/L 20-30 CREATININE, Serum 0.93 mg/dL 0.50-1.40 eGFR(CKD-EPI 2020) 89 mL/min >60 Jul 04, 2024 07:51 AM [facility] CBC Specimen Type: BLOOD No comment entered. Ordering Provider: MELBA DOE Report Released Date/Time: Jan 06, 2024 03:34 PM Reporting Lab: [address] [address] Performing Lab: [address] [address] WBC 6.85 10*3/uL 4.50-11.00 RBC 4.76 10*6/uL [...] Encounter Note(s) Provider Source Jun 20, 2024 01:51 PM LETTERS: LOCAL TITLE: PATIENT LETTER (B) STANDARD TITLE: LETTERS DATE OF NOTE: JUN 20, 2024@13:51 ENTRY DATE: JUN 20, 2024@13:51:47 AUTHOR: CONNOR BELLO EXP COSIGNER: URGENCY: STATUS: COMPLETED JUN 20, 2024 STAR Spangler JR [address] [place], [place] [address] Dear STAR DOUGHERTY JR Thank you for choosing the [facility] ([place]) [facility] as your primary choice for health care. As a partner in your health care, we are contacting you in writing since we have been unsuccessful in our attempts to reach you to date. We want to assure you we are doing everything possible to schedule Veterans for their [place] medical care appointments. Our records indicate you are due for an appointment in MED REHABILITATION . If you would like to be seen, please contact [facility] at ext. [phone] to schedule an appointment. Thank you for your service to our nation, and we look forward to hearing from you soon. Sincerely, [facility] [address] [facility] [address] [place] [address] [place] [address] [facility] [address] [facility] [address] [place] [address] [place] [address] ext. [phone] [facility] [address] [address] [place] [address] ext. [phone] CONNOR BELLO [place] [facility] [place] [facility] Jun 20, 2024 01:44 PM ADMINISTRATIVE NOT E: LOCAL TITLE: ADMINISTRATIVE RECALL NOTE STANDARD TITLE: ADMINISTRATIVE NOTE DATE OF NOTE: JUN 20, 2024@13:44 ENTRY DATE: JUN 20, 2024@13:46:57 AUTHOR: CONNOR BELLO EXP COSIGNER: URGENCY: STATUS: COMPLETED ADMINISTRATIVE RECALL NOTE Has ADDENDA RTC orders: Unable to contact patient: Attempts to contact: 1st attempt: Left voicemail 2nd attempt: Letter mailedDisposition onDec 3rd attempt: 4th attempt: /monisha/ CONNOR BELLO ADVANCED STAVE AND BOLT EQUALIZER Signed: 06/20/2024 13:51 07/06/2024 ADDENDUM STATUS: COMPLETED RTC 07/10/2024 dispositioned due to veterans failure to respond to all contact efforts per department standards. Dispositioned on 07/06/2024 /iram BELLO ADVANCED STAVE AND BOLT EQUALIZER Signed: 07/06/2024 12:13 CONNOR BELLO [place] [facility]
--- OUTSIDE RECORDS SUMMARY | 2024-07-31 10:48 | XMS_ITS | Encounter Summary ---
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 Date/Time Encounter Type Encounter Description Reason Pro vider Source Jul 11, 2024 02:13 PM Outpatient Encounter PAIN CLINIC IHE Encounter Template Text not used by [place] Plan of Treatment: Future Appointments (+ 6 months) and Future Tests (+/- 45 days) The Plan of Treatment section includes future care activities for the patient from all [place] [facility]. This section includes future appointments and future orders which are active, pending or scheduled. Future Appointments This section includes appointments that were scheduled to occur 6 months from the date of the Encounter, up to a maximum of 20 appointments. The data comes from all [facility]. Appointment Date/Time Appointment Type Appointme nt Facility Name Jul 31, 2024 10:30 AM AMBULATORY - NONE [place] [facility] [place] [facility] Aug 01, 2024 08:45 AM AMBULATORY - MEDICINE [place] [facility] [place] [facility] Aug 01, 2024 09:00 AM AMBULATORY - MEDICINE [place] [facility] [place] [facility] Aug 01, 2024 01:00 PM AMBULATORY - MEDICINE [place] [facility] [place] [facility] Aug 08, 2024 01:00 PM AMBULATORY - MEDICINE [place] [facility] [place] [facility] Aug 09, 2024 10:30 AM AMBULATORY - PSYCHIATRY [place] [facility] [place] [facility] Aug 15, 2024 10:00 AM AMBULATORY - MEDICINE [place] [facility] [place] [facility] Sep 14, 2024 11:30 AM AMBULATORY - MEDICINE [place] [facility] [place] [facility] Jan 08, 2025 01:00 PM AMBULATORY - MEDICINE [place] [facility] [place] [facility] Active, Pending, and Scheduled Orders This section includes a listing of several types of active, pending, and scheduled orders, including clinic medications orders, diagnostic test orders, procedure orders and consult orders; where the start date of the order is 45 days before the date of the Encounter or 45 days after the date of theEncounter. The data comes from all [facility]. Test Date/Time Test Type Test Details Facility Name Jun 01, 2024 08:16 AM Consult Order PSYCHOTHER SHERRY SWANSON/MAGED OUTPT Cons Pollution Control Technician's Choice [place] [facility] [place] [facility] Lab Results: +/- 30 days of [...] Range Comment Jul 04, 2024 07:55 AM [facility] METHADONE SCREEN Specimen Type: URINE Comment: NATO test are qualitative, any L or H flags only indicate a [place] alert was sent. Ordering Provider: KARLA LOAY Report Released Date/Time: Apr 20, 2024 08:58 AM Reporting Lab: [facility] [address] [facility] [address] Performing Lab: [facility] [address] [facility] [address] METHADONE SCREEN None detected(Nega tive) L Negative Jul 04, 2024 07:55 AM [facility] ALCOHOL, ETHYL URINE PANEL Specimen Type: [...] Apr 20, 2024 08:58 AM Reporting Lab: [facility] [address] [facility] [address] Performing Lab: [facility] [address] [facility] [address] ALCOHOL, ETHYL URINE NONE-DETECTED mg/dL NONE-DETEC DINA, cutoff = 10 mg/dL PH, NATO 5.4 [pH] 4-10 CREATININE, NATO 123.15 mg/dL >20 SP.GRAVITY, NATO 1.026 H 1.00 3-1.02 0 Jul 04, 2024 07:55 AM [facility] AMPHETAMINES SCREEN PANEL Specimen Type: URINE [...] 20, 2024 08:58 AM Reporting Lab: [address] [address] Performing Lab: [address] [address] AMPHETAMINES SCREEN NONE-DETECTED None-Detec dina, Cutoff = 1000 ng/mL PH, NATO 5.4 [pH] 4-10 CREATININE, NATO 123.15 mg/dL >20 SP.GRAVITY, NATO 1.026 H 1.00 3-1.02 0 Jul 04, 2024 07:55 AM [facility] FENTANYL SCREEN PANEL Specimen Type: URINE [...] 20, 2024 08:58 AM Reporting Lab: [address] [address] Performing Lab: [address] [address] FENTANYL SCREEN NONE-DETECTE D ng/mL Negative: Cutoff = 1.00 ng/mL PH, NATO 5.4 [pH] 4-10 CREATININE, NATO 123.70 mg/dL >20 SP.GRAVITY, NATO 1.026 H 1.00 3-1.02 0 Jul 04, 2024 07:55 AM [facility] BENZODIAZEPINES SCREEN PANEL Specimen Type: URINE [...] 20, 2024 08:58 AM Reporting Lab: [address] [address] Performing Lab: [address] [address] BENZODIAZEPINES SCREEN NONE-DETECTED None-Detec dina, Cutoff = 200 ng/mL PH, NATO 5.4 [pH] 4-10 CREATININE, NATO 123.15 mg/dL >20 SP.GRAVITY, NATO 1.026 H 1.00 3-1.02 0 Jul 04, 2024 07:55 AM [facility] BUPRENORPHINE SCREEN PANEL Specimen Type: URINE [...] 20, 2024 08:58 AM Reporting Lab: [address] [address] Performing Lab: [address] [address] BUPRENORPHINE (URINE) NONE-DETECTED None Detected, Cutoff = 10.0 ng/mL PH, NATO 5.4 [pH] 4-10 CREATININE, NATO 123.15 mg/dL >20 SP.GRAVITY, NATO 1.026 H 1.00 3-1.02 0 Jul 04, 2024 07:55 AM [facility] CANNABINOIDS SCREEN PANEL Specimen Type: URINE [...] 20, 2024 08:58 AM Reporting Lab: [address] [address] Performing Lab: [address] [address] CANNABINOIDS SCREEN NONE-DETECTED None-Detec dina,Cutoff = 50 ng/mL PH, NATO 5.4 [pH] 4-10 CREATININE, NATO 123.15 mg/dL >20 SP.GRAVITY, NATO 1.026 H 1.00 3-1.02 0 Jul 04, 2024 07:55 AM [facility] COCAINE SCREEN PANEL Specimen Type: URINE [...] 20, 2024 08:58 AM Reporting Lab: [address] [address] Performing Lab: [address] [address] COCAINE SCREEN NONE-DETECTED N one-Detec dina,Cutoff = 300 ng/mL PH, NATO 5.4 [pH] 4-10 CREATININE, NATO 123.15 mg/dL >20 SP.GRAVITY, NATO 1.026 H 1.00 3-1.02 0 Jul 04, 2024 07:55 AM [facility] OPIATES SCREEN PANEL Specimen Type: URINE [...] 20, 2024 08:58 AM Reporting Lab: [address] [address] Performing Lab: [address] [address] OPIATES SCREEN NONE-DETECTED N one-Detec dina, Cutoff = 300 ng/mL PH, NATO 5.4 [pH] 4-10 CREATININE, NATO 123.15 mg/dL >20 SP.GRAVITY, NATO 1.026 H 1.00 3-1.02 0 Jul 04, 2024 07:55 AM [facility] OXYCODONE SCREEN PANEL Specimen Type: URINE [...] 20, 2024 08:58 AM Reporting Lab: [address] [address] Performing Lab: [address] [address] OXYCODONE SCREEN NONE-DETECTED None-Detec dina, Cutoff = 100 ng/mL PH, NATO 5.4 [pH] 4-10 CREATININE, NATO 123.15 mg/dL >20 SP.GRAVITY, NATO 1.026 H 1.00 3-1.02 0 Jul 04, 2024 07:51 AM [facility] [id number] PGx Specimen Type: BLOOD Comment: shipped on manifest [id number] Ordering Provider: ALYSHA MOY Report Released Date/Time: Apr 24, 2024 12:11 PM Reporting Lab: [facility] [address] [facility] [address] Performing Lab: [facility] [address] [facility] [address] [id number] PGx comment Jul 04, 2024 07:51 AM [facility] LIVER FUNCTION Specimen Type: SERUM No comment entered. Ordering Provider: MELBA DOE Report Released Date/Time: Jan 06, 2024 03:34 PM Reporting Lab: [facility] [address] [facility] [address] Performing Lab: [facility] [address] [facility] [address] PROTEIN,TOTAL 6.8 g/dL 6.0-8.3 ALBUMIN 4.2 g/dL 3.5-5.0 ALKALINE PHOSPHATASE 84 U/L 40-150 AST 19 U/L 5-34 ALT 27 U/L BILIRUBIN, TOTAL 0.3 mg/dL 0.2-1.2 Jul 04, 2024 07:51 AM [facility] BASIC METABOLIC PANEL (fasting) Specimen Type: SERUM No comment entered. Ordering Provider: MELBA DOE Report Released Date/Time: Jan 06, 2024 03:34 PM Reporting Lab: [facility] [address] [facility] [address] Performing Lab: [address] [address] UREA NITROGEN 13 mg/dL 7-25 GLUCOSE 123 mg/dL H 65-100 SODIUM 138 mmol/L 135-145 POTASSIUM 4.7 mmol/L 3.5-5.0 CHLORIDE 103 mmol/L 100-110 CO2 27 meq/L 20-30 CREATININE, Serum 0.93 mg/dL 0.50-1.40 eGFR(CKD-EPI 2020) 89 mL/min >60 Jul 04, 2024 07:51 AM [facility] CBC Specimen Type: BLOOD No comment entered. Ordering Provider: MELBA DOE Report Released Date/Time: Jan 06, 2024 03:34 PM Reporting Lab: [facility] [address] [facility] [facility] [address] Performing Lab: [facility] [address] [facility] [facility] [address] WBC 6.85 10*3/uL 4.50-11.00 RBC 4.76 10*6/uL [...] 08:30 AM VA-TOBACCO NEVER U SED CIGARETTES [facility] Tobacco Use History This section includes a history of the smoking, or tobacco-related health factors, that were collected on or before the date of the Encounter. The data comes from the [place] facility where the Encounter took place. Date/Time Smoking Status/Tobacco Use Comment F acility Jul 10, 2024 08:30 AM VA-TOBACCO NEVER U SED OTHER TYPE [facility] Sep 04, 2021 02:56 PM VA-TOBACCO NEVER USED [facility] Encounter Notes: All associated encounter notes This section contains the clinical notes associated to the Encounter. 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
--- OUTSIDE RECORDS SUMMARY | 2024-07-31 10:48 | XMS_ITS | Encounter Summary ---
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 Date/Time Encounter Type Encounter Description Reason Pro vider Source Jul 24, 2024 01:58 PM Outpatient Encounter ADMIN PAT ACTIVTIES (MASNONCT) [...] 31, 2024 10:30 AM AMBULATORY - NONE [place] [facility] [place] [facility] Aug 01, 2024 08:45 AM AMBULATORY [place]IC[place] [facility] [place] [facility] Aug 01, 2024 09:00 AM AM[place]ULATORY [place]ICINE [place] [facility] [place] [facility] Aug 01, 2024 01:00 PM AMBULATORY [place]ICINE [place] [facility] [place] [facility] Aug 08, 2024 01:00 PM AMBULATORY [place]ICINE [place] [facility] [place] [facility] Aug 09, 2024 10:30 AM AMBULATORY - PSYCHIATRY [place] [facility] [place] [facility] Aug 15, 2024 10:00 AM AMBULATORY [place]ICINE [place] [facility] [place] [facility] Sep 14, 2024 11:30 AM AMBULATORY [place]ICINE [place] [facility] [place] [facility] Jan 08, 2025 01:00 PM AMBULATORY - [place]ICINE [place] [facility] [place] [facility] Lab Results: +/- 30 days [...] Range Comment Jul 04, 2024 07:55 AM [place] [facility] [place] [facility] METHADONE SCREEN Specimen Type: URINE Comment: NATO test are qualitative, any L or H flags only indicate a [facility] alert was sent. Ordering Provider: KARLA LOYA Report Released Date/Time: Apr 20, 2024 08:58 AM Reporting Lab: [facility] [address] [facility] [address] Performing Lab: [facility] [address] [facility] [address] METHADONE SCREEN None detected(Nega tive) L Negative Jul 04, 2024 07:55 AM [facility] ALCOHOL, ETHYL URINE PANEL Specimen Type: [...] Apr 20, 2024 08:58 AM Reporting Lab: [address] [address] Performing Lab: [address] [address] ALCOHOL, ETHYL URINE NONE-DETECTED mg/dL NONE-DETEC NBA, cutoff = 10 mg/dL PH, NATO 5.4 [pH] 4-10 CREATININE, NATO 123.15 mg/dL >20 SP.GRAVITY, NATO 1.026 H 1.00 3-1.02 0 Jul 04, 2024 07:55 AM [facility] AMPHETAMINES SCREEN PANEL Specimen Type: URINE [...] Apr 20, 2024 08:58 AM Reporting Lab: [address] [address] Performing Lab: [address] [address] AMPHETAMINES SCREEN NONE-DETECTED None-Detec nba, Cutoff = 1000 ng/mL PH, NATO 5.4 [pH] 4-10 CREATININE, NATO 123.15 mg/dL >20 SP.GRAVITY, NATO 1.026 H 1.00 3-1.02 0 Jul 04, 2024 07:55 AM [facility] BENZODIAZEPINES SCREEN PANEL Specimen Type: URINE [...] Apr 20, 2024 08:58 AM Reporting Lab: [address] [address] Performing Lab: [address] [address] BENZODIAZEPINES SCREEN NONE-DETECTED None-Detec nba, Cutoff = 200 ng/mL PH, NATO 5.4 [pH] 4-10 CREATININE, NATO 123.15 mg/dL >20 SP.GRAVITY, NATO 1.026 H 1.00 3-1.02 0 Jul 04, 2024 07:55 AM [facility] BUPRENORPHINE SCREEN PANEL Specimen Type: URINE [...] 2024 08:58 AM Reporting Lab: [place] [facility] [address] [address] Performing Lab: [address] [address] BUPRENORPHINE (URINE) NONE-DETECTED None Detected, Cutoff = 10.0 ng/mL PH, NATO 5.4 [pH] 4-10 CREATININE, NATO 123.15 mg/dL >20 SP.GRAVITY, NATO 1.026 H 1.00 3-1.02 0 Jul 04, 2024 07:55 AM [facility] FENTANYL SCREEN PANEL Specimen Type: URINE [...] Apr 20, 2024 08:58 AM Reporting Lab: [address] [address] Performing Lab: [address] [address] FENTANYL SCREEN NONE-DETECTE D ng/mL Negative: Cutoff = 1.00 ng/mL PH, NATO 5.4 [pH] 4-10 CREATININE, NATO 123.70 mg/dL >20 SP.GRAVITY, NATO 1.026 H 1.00 3-1.02 0 Jul 04, 2024 07:55 AM [facility] CANNABINOIDS SCREEN PANEL Specimen Type: URINE [...] Apr 20, 2024 08:58 AM Reporting Lab: [address] [address] Performing Lab: [address] [address] CANNABINOIDS SCREEN NONE-DETECTED None-Detec nba,Cutoff = 50 ng/mL PH, NATO 5.4 [pH] 4-10 CREATININE, NATO 123.15 mg/dL >20 SP.GRAVITY, NATO 1.026 H 1.00 3-1.02 0 Jul 04, 2024 07:55 AM [facility] COCAINE SCREEN PANEL Specimen Type: URINE [...] Apr 20, 2024 08:58 AM Reporting Lab: [address] [address] Performing Lab: [address] [address] COCAINE SCREEN NONE-DETECTED N one-Detec nba,Cutoff = 300 ng/mL PH, NATO 5.4 [pH] 4-10 CREATININE, NATO 123.15 mg/dL >20 SP.GRAVITY, NATO 1.026 H 1.00 3-1.02 0 Jul 04, 2024 07:55 AM [facility] OXYCODONE SCREEN PANEL Specimen Type: URINE [...] Apr 20, 2024 08:58 AM Reporting Lab: [address] [address] Performing Lab: [address] [address] OXYCODONE SCREEN NONE-DETECTED None-Detec nba, Cutoff = 100 ng/mL PH, NATO 5.4 [pH] 4-10 CREATININE, NATO 123.15 mg/dL >20 SP.GRAVITY, NATO 1.026 H 1.00 3-1.02 0 Jul 04, 2024 07:55 AM [facility] OPIATES SCREEN PANEL Specimen Type: URINE [...] Apr 20, 2024 08:58 AM Reporting Lab: [address] [address] Performing Lab: [address] [address] OPIATES SCREEN NONE-DETECTED N one-Detec nba, Cutoff = 300 ng/mL PH, NATO 5.4 [pH] 4-10 CREATININE, NATO 123.15 mg/dL >20 SP.GRAVITY, NATO 1.026 H 1.00 3-1.02 0 Jul 04, 2024 07:51 AM [facility] 631_[id number] PGx Specimen Type: BLOOD Comment: shipped on manifest [id number] Ordering Provider: ALYSHA MOY Report Released Date/Time: Apr 24, 2024 12:11 PM Reporting Lab: [address] [address] Performing Lab: [facility] [address] [facility] [address] [id number] PGx comment Jul 04, 2024 07:51 AM [facility] BASIC METABOLIC PANEL (fasting) Specimen Type: SERUM No comment entered. Ordering Provider: MELBA DOE Report Released Date/Time: Jan 06, 2024 03:34 PM Reporting Lab: [address] [address] Performing Lab: [address] [address] UREA NITROGEN 13 mg/dL 7-25 GLUCOSE 123 mg/dL H 65-100 SODIUM 138 mmol/L 135-145 POTASSIUM 4.7 mmol/L 3.5-5.0 CHLORIDE 103 mmol/L 100-110 CO2 27 meq/L 20-30 CREATININE, Serum 0.93 mg/dL 0.50-1.40 eGFR(CKD-EPI 2020) 89 mL/min >60 Jul 04, 2024 07:51 AM [facility] CBC Specimen Type: BLOOD No comment entered. Ordering Provider: MELBA DOE Report Released Date/Time: Jan 06, 2024 03:34 PM Reporting Lab: [address] [address] Performing Lab: [address] [address] WBC 6.85 10*3/uL 4.50-11.00 RBC 4.76 10*6/uL 4.23-5.66 HGB 15.1 g/dL 12.8-17 HCT 43.9 39.2-50.4 MCV 92.2 fL 82-99 MCHC 34.4 g/dL 30.8-35.1 PLT 248 10*3/uL 140-360 RDW-CV 12.4 12.0-16.0 MCH 31.7 pg 26.2-32.6 Jul 04, 2024 07:51 AM [facility] LIVER FUNCTION Specimen Type: SERUM No comment entered. Ordering Provider: MELBA DOE Report Released Date/Time: Jan 06, 2024 03:34 PM Reporting [facility] [address] [facility] [address] Performing Lab: [address] [address] PROTEIN,TOTAL 6.8 g/dL 6.0-8.3 ALBUMIN 4.2 g/dL 3.5-5.0 ALKALINE PHOSPHATASE 84 U/L 40-150 AST 19 U/L 5-34 ALT 27 U/L BILIRUBIN, TOTAL 0.3 mg/dL 0.2-1.2 Encounter Notes: All associated encounter notes This section contains the clinical notes associated to the Encounter. Date/Time Encounter Note(s) Provider Source Jul 24, 2024 01:58 PM HEMATOLOGY AND ONC OLOGY NOTE: LOCAL TITLE: PHARMACOGENOMICS NOTE STANDARD TITLE: HEMATOLOGY AND ONCOLOGY NOTE DATE OF NOTE: JUL 24, 2024@13:58 ENTRY DATE: JUL 24, 2024@13:58:32 AUTHOR: YANN LINDSAY EXP COSIGNER: URGENCY: STATUS: COMPLETED [place] Pharmacogenomic Testing for Veterans (PHASER) A basic pharmacogenomic testing panel was performed as part of the PHASER Program. A copy of the patient-facing pharmacogenomic report has been provided to the patient. Test results will be incorporated into the electronic health record along with clinical decision support tools to guide interpretation and appropriate use of test results. CONTRAINDICATED - Pharmacogenomic results may not be interpretable in patient who are recipients of a liver transplant or who have undergone allogeneic bone marrow transplant. It is not advisable for these patients to undergo pharmacogenomic testing; instead, order a Pharmacogenomics E-consult. HERITABLE DISEASE ALERT - Pharmacogenomic testing may reveal heritable disease information. In such cases, the provider has been notified in a separate communication of the implications and recommendations for further action, if indicated, and the patient has been mailed basic information with their test results letter. For current testing panel details and which (if any) genes currently have heritable disease implications, visit: [email or web address]://[email or web address]/[email or web address] e HOW TO USE THIS INFORMATION - * REFER TO THE PATIENT'S PGx RESULTS REPORT IN [facility] for the list of medications impacted by the PGx panel administered and relevant recommendations or alternatives based on the patient's PGx test results. * FOR MEDICINES PRESCRIBED AT THE TIME OF PGx TESTING, consider modifying prescription therapy if the patient is NOT responding as desired. * FOR MEDICINES PRESCRIBED IN THE FUTURE, automated clinical decision support will flag actionable drug-gene interactions HELP & MORE INFORMATION - * For clinical assistance, place a Pharmacogenomics e-consult * Technical assistance can be accessed by messaging or emailing: * More information on the [place] PHASER Pharmacogenomic Testing Program can be found at: [email or web address] LOCATION OF FULL RESULTS REPORT: The full test results report PDF including impacted medications, individual genotypes, and drug-gene interactions can be found in [facility] under the following - PROC DT date: Jun TEST RESULTS (16-GENE PANEL): Gene: ABCG2 Result: Normal function Gene: CYP2B6 Result: Intermediate metabolizer Gene: CYP2C Result: Low sensitivity Gene: [id number] Result: Rapid metabolizer Gene: CYP2C9 Result: Normal metabolizer Gene: CYP2D6 Result: Normal metabolizer Gene: CY Result: Intermediate metabolizer Gene: CYP4F2 Result: Normal activity Gene: DPYD Result: Normal metabolizer Gene: G6PD Result: Normal function Gene: [id number] Result: Normal metabolizer Gene: [id number] Result: Normal function Gene: TPMT Result: Normal metabolizer Gene: UGT1A1 Result: Intermediate metabolizer Gene: VKORC1 Result: High warfarin sensitivity HLA-B *57:01 screen Negative - Low risk of abacavir sensitivity There may be a delay in the availability of the PGx results report in [facility]. If immediate access to the patient report is needed, please navigate to [employer] Summaries & Documents Widget to find Benjamín's report under PharmGx Panel. /monisha/ YANN LINDSAY PGx Results Data Processing Specialist Signed: 07/24/2024 14:00 YANN LINDSAY [facility]
--- OUTSIDE RECORDS SUMMARY | 2024-07-31 10:48 | XMS_ITS | Encounter Summary ---
Author Name [facility] Organization [facility] ([place]) Address [address] [place] [id number] Care Team Providers Care Quarry Manager Name Role Phone MELBA DOE Primary [...] PART B Feb 24, 2020 PART B [id number] LADONNA COLEMANTONYLYNNE PATIENT MEDICARE (WNR) MEDICARE (M) PART A November 24, 2019 PART A [id number] DOUGHERTY STAR COLEMAN PATIENT OFFICE OF REGIONAL SOCIAL SERVICE LIAISON NO-FAULT INSURANCE NO FAULT May 12, 2022 NO FAULT [id number] STAR DOUGHERTY JR PATIENT FOR LIFE TFL* Feb 24, 2020 [id number] STAR DOUGHERTY JR PATIENT [facility] (WNR) TRICA RE(WN R) Jul 26, 2017 (WNR) [id number] [phone] ROSALES DOUGHERTY PATIENT Selected Encounter This section includes the information on record at [place] for the Encounter. Date/Time Encounter Type Encounter Description Reason Pro vider Source Jul 17, 2024 01:17 PM Outpatient Encounter OPTOMETRY IHE Encounter Template Text not used by [facility] Plan of Treatment: Future Appointments (+ 6 months) and Future Tests (+/- 45 days) The Plan of Treatment section includes future care activities for the patient from all [place] [facility]. This section includes future [...] 31, 2024 10:30 AM AMBULATORY - NONE [place] [facility] [place] [facility] Aug 01, 2024 08:45 AM AMBULATORY - MEDICINE [place] [facility] [place] [facility] Aug 01, 2024 09:00 AM AMBULATORY - MEDICINE [place] [facility] [place] [facility] Aug 01, 2024 01:00 PM AMBULATORY - MEDICINE [place] [facility] [place] [facility] Aug 08, 2024 01:00 PM AMBULATORY - MEDICINE [place] [facility] [place] [facility] Aug 09, 2024 10:30 AM AMBULATORY - PS[place]CHIATRY [place] [facility] [place] [facility] Aug 15, 2024 10:00 AM AMBULATORY - MEDICINE [place] [facility] [place] [facility] Sep 14, 2024 11:30 AM AMBULATORY - MEDICINE [place] [facility] [place] [facility] Jan 08, 2025 01:00 PM AMBULATORY - MEDICINE [place] [facility] [place] [facility] Lab Results: +/- 30 days [...] Range Comment Jul 04, 2024 07:55 AM [place] [facility] [place] [facility] METHADONE SCREEN Specimen Type: URINE Comment: NATO test are qualitative, any L or H flags only indicate a VA alert was sent. Ordering Provider: KARLA LOYA Report Released Date/Time: Apr 20, 2024 08:58 AM Reporting Lab: [facility] [address] [facility] [address] Performing Lab: [facility] [address] [facility] [address] METHADONE SCREEN None detected(Nega tive) L Negative [...] 20, 2024 08:58 AM Reporting Lab: [address] [address] Performing Lab: [address] [address] ALCOHOL, ETHYL URINE NONE-DETECTED mg/dL NONE-DETEC NBA, [...] 20, 2024 08:58 AM Reporting Lab: [address] [address] Performing Lab: [address] [address] AMPHETAMINES SCREEN NONE-DETECTED None-Detec nba, Cutoff = [...] 20, 2024 08:58 AM Reporting Lab: [address] [address] Performing Lab: [address] [address] FENTANYL SCREEN NONE-DETECTE D ng/mL Negative: Cutoff [...] 20, 2024 08:58 AM Reporting Lab: [facility] [address] [address] Performing Lab: [address] [address] BENZODIAZEPINES SCREEN NONE-DETECTED None-Detec nba, Cutoff = [...] 20, 2024 08:58 AM Reporting Lab: [address] [address] Performing Lab: [address] [address] BUPRENORPHINE (URINE) NONE-DETECTED None Detected, Cutoff = [...] 20, 2024 08:58 AM Reporting Lab: [address] [address] Performing Lab: [address] [address] CANNABINOIDS SCREEN NONE-DETECTED None-Detec nba,Cutoff = 50 [...] 20, 2024 08:58 AM Reporting Lab: [address] [address] Performing Lab: [address] [address] COCAINE SCREEN NONE-DETECTED N one-Detec nba,Cutoff = [...] AM Reporting Lab: [facility] [address] [facility] [address] Performing Lab: [address] [address] OPIATES SCREEN NONE-DETECTED N one-Detec nba, Cutoff [...] 20, 2024 08:58 AM Reporting Lab: [address] [address] Performing Lab: [address] [address] OXYCODONE SCREEN NONE-DETECTED None-Detec nba, Cutoff = 100 ng/mL PH, NATO 5.4 [pH] 4-10 CREATININE, NATO 123.15 mg/dL >20 SP.GRAVITY, NATO 1.026 H 1.00 3-1.02 0 Jul 04, 2024 07:51 AM [facility] 631_PHASeR PGx Specimen Type: BLOOD Comment: shipped on manifest [id number] Ordering Provider: ALYSHA MOY Report Released Date/Time: Apr 24, 2024 12:11 PM Reporting Lab: [facility] [address] [facility] [address] Performing Lab: [facility] [address] [facility] [address] [id number] PGx comment Jul 04, 2024 07:51 AM [facility] BASIC METABOLIC PANEL (fasting) Specimen Type: SERUM No comment entered. Ordering Provider: MELBA DOE Report Released Date/Time: Jan 06, 2024 03:34 PM Reporting Lab: [address] [address] Performing Lab: [address] [address] UREA NITROGEN 13 mg/dL 7-25 GLUCOSE 123 [...] Jan 06, 2024 03:34 PM Reporting Lab: [address] [address] Performing Lab: [address] [address] PROTEIN,TOTAL 6.8 g/dL 6.0-8.3 ALBUMIN 4.2 g/dL 3.5-5.0 ALKALINE PHOSPHATASE 84 U/L 40-150 AST 19 U/L 5-34 ALT 27 U/L BILIRUBIN, TOTAL 0.3 mg/dL 0.2-1.2 Jul 04, 2024 07:51 AM [facility] CBC Specimen Type: BLOOD No comment entered. Ordering Provider: MELBA DOE Report Released Date/Time: Jan 06, 2024 03:34 PM Reporting Lab: [address] [address] Performing Lab: [address] [address] WBC 6.85 10*3/uL 4.50-11.00 RBC 4.76 10*6/uL [...] 08:30 AM VA-TOBACCO NEVER U SED CIGARETTES [facility] Tobacco Use History This section includes a history of the smoking, or tobacco-related health factors, that were collected on or before the date of the Encounter. The data comes from the [place] facility where the Encounter took place. Date/Time Smoking Status/Tobacco Use Comment F acility Jul 10, 2024 08:30 AM VA-TOBACCO NEVER U SED OTHER TYPE [place] [facility] [facility] Sep 04, 2021 02:56 PM VA-TOBACCO NEVER USED [facility] Encounter Notes: All associated encounter notes This section contains the clinical notes associated to the Encounter. Date/Time Encounter Note(s) Provider Source Jul 17, 2024 01:18 PM ADMINISTRATIVE NOT E: LOCAL TITLE: ADMINISTRATIVE RECALL NOTE STANDARD TITLE: ADMINISTRATIVE NOTE DATE OF NOTE: JUL 17, 2024@13:18 ENTRY DATE: JUL 17, 2024@13:18:22 AUTHOR: CONNOR BELLO EXP COSIGNER: URGENCY: STATUS: COMPLETED RTC orders: Unable to contact patient: Attempts to contact: 1st attempt: Left voicemail 2nd attempt: Letter mailedDisposition 3rd attempt: 4th attempt: /monisha/ CONNOR BELLO ADVANCED PUBLIC HOUSING MANAGER Signed: 07/17/2024 13:18 CONNOR BELLO [place] [facility] [place] [facility] Jul 17, 2024 01:18 PM LETTERS: LOCAL TITLE: PATIENT LETTER (B) STANDARD TITLE: LETTERS DATE OF NOTE: JUL 17, 2024@13:18 ENTRY DATE: JUL 17, 2024@13:18:43 AUTHOR: CONNOR BELLO EXP COSIGNER: URGENCY: STATUS: COMPLETED JUL 17, 2024 STAR DOUGHERTY [address], [place] [address] Dear STAR DOUGHERTY JR Thank you for choosing the [facility] ([place] [facility] as your primary choice for health care. As a partner in your health care, we are contacting you in writing since we have been unsuccessful in our attempts to reach you to date. We want to assure you we are doing everything possible to schedule Veterans for their [place] medical care appointments. Our records indicate you are due for an appointment in OPTOMETRY. If you would like to be seen, please contact [facility] at ext. [phone] to schedule an appointment. Thank you for your service to our nation, and we look forward to hearing from you soon. Sincerely, [facility] [address] [facility] [address] [place] [address] [place] [address] [facility] [address] [facility] [address] [place] [address] [place] [address] ext. [phone] [facility] [address] [address] [place] [address] ext. [phone] CONNOR BELLO [place] [facility]
--- OUTSIDE RECORDS SUMMARY | 2024-07-31 10:48 | XMS_ITS | Encounter Summary ---
Author Name [facility] [facility] [place] [facility] [place] Address [address] [place] [id number] Care Team Providers Care Contact Person Name Role Phone MELBA DOE Primary Care [...] PART B Feb 24, 2020 PART B [id number] STAR DOUGHERTY JR PATIENT MEDICARE (WNR) MEDICARE (M) PART A November 24, 2019 PART A [id number] LADONNA COLEMAN EDLYNNE PATIENT OFFICE OF [facility] NO-FAULT INSURANCE NO FAULT May 12, 2022 NO FAULT [id number] LADONNA COLEMANSTAR PATIENT FOR LIFE TFL* Feb 24, 2020 [id number] 14 DOUGHERTY STAR PATIENT [facility] (WNR) TRICA RE(WN R) Jul 26, 2017 (WNR) [id number] 14 ROSALES DOUGHERTY ROSETTA PATIENT Selected Encounter This section includes the information on record at [place] for the Encounter. Date/Time Encounter Type Encounter Description Reason Pro vider Source Jul 24, 2024 12:00 AM Outpatient Encounter EVENT (HISTORICAL) [...] 31, 2024 10:30 AM AMBULATORY - NONE [place] [facility] [place] [facility] Aug 01, 2024 08:45 AM AMBULATORY - MEDICINE [place] [facility] [place] [facility] Aug 01, 2024 09:00 AM AMBULATORY - MEDICINE [place] [facility] [place] [facility] Aug 01, 2024 01:00 PM AMBULATORY - MEDICINE [place] [facility] [place] [facility] Aug 08, 2024 01:00 PM AMBULATORY - MEDICINE [place] [facility] [place] [facility] Aug 09, 2024 10:30 AM AMBULATORY - PSYCHIATRY [place] [facility] [place] [facility] Aug 15, 2024 10:00 AM AMBULATORY - MEDICINE [place] [facility] [place] [facility] Sep 14, 2024 11:30 AM AMBULATORY - MEDICINE [place] [facility] [place] [facility] Jan 08, 2025 01:00 PM AMBULATORY - MEDICINE [place] [facility] [place] [facility] Lab Results: +/- 30 days [...] Range Comment Jul 04, 2024 07:55 AM [place] [facility] [place] [facility] METHADONE SCREEN Specimen Type: URINE Comment: NATO test are qualitative, any L or H flags only indicate a VA alert was sent. Ordering Provider: KARLA LOYA Report Released Date/Time: Apr 20, 2024 08:58 AM Reporting Lab: [facility] [address] [facility] [address] Performing Lab: [facility] [address] [facility] [address] METHADONE SCREEN None detected(Nega tive) L Negative Jul 04, 2024 07:55 AM [facility] ALCOHOL, ETHYL URINE PANEL Specimen Type: [...] Apr 20, 2024 08:58 AM Reporting Lab: [address] [address] Performing Lab: [address] [address] ALCOHOL, ETHYL URINE NONE-DETECTED mg/dL NONE-DETEC NBA, cutoff = 10 mg/dL PH, NATO 5.4 [pH] 4-10 CREATININE, NATO 123.15 mg/dL >20 SP.GRAVITY, NATO 1.026 H 1.00 3-1.02 0 Jul 04, 2024 07:55 AM [facility] AMPHETAMINES SCREEN PANEL Specimen Type: URINE [...] Apr 20, 2024 08:58 AM Reporting Lab: [address] [address] Performing Lab: [address] [address] AMPHETAMINES SCREEN NONE-DETECTED None-Detec nba, Cutoff = 1000 ng/mL PH, NATO 5.4 [pH] 4-10 CREATININE, NATO 123.15 mg/dL >20 SP.GRAVITY, NATO 1.026 H 1.00 3-1.02 0 Jul 04, 2024 07:55 AM [facility] BENZODIAZEPINES SCREEN PANEL Specimen Type: URINE [...] Apr 20, 2024 08:58 AM Reporting Lab: [address] [address] Performing Lab: [address] [address] BENZODIAZEPINES SCREEN NONE-DETECTED None-Detec nba, Cutoff = 200 ng/mL PH, NATO 5.4 [pH] 4-10 CREATININE, NATO 123.15 mg/dL >20 SP.GRAVITY, NATO 1.026 H 1.00 3-1.02 0 Jul 04, 2024 07:55 AM [facility] BUPRENORPHINE SCREEN PANEL Specimen Type: URINE [...] Apr 20, 2024 08:58 AM Reporting Lab: [address] [address] Performing Lab: [address] [address] BUPRENORPHINE (URINE) NONE-DETECTED None Detected, Cutoff = 10.0 ng/mL PH, NATO 5.4 [pH] 4-10 CREATININE, NATO 123.15 mg/dL >20 SP.GRAVITY, NATO 1.026 H 1.00 3-1.02 0 Jul 04, 2024 07:55 AM [facility] FENTANYL SCREEN PANEL Specimen Type: URINE [...] Apr 20, 2024 08:58 AM Reporting Lab: [address] [address] Performing Lab: [address] [address] FENTANYL SCREEN NONE-DETECTE D ng/mL Negative: Cutoff = 1.00 ng/mL PH, NATO 5.4 [pH] 4-10 CREATININE, NATO 123.70 mg/dL >20 SP.GRAVITY, NATO 1.026 H 1.00 3-1.02 0 Jul 04, 2024 07:55 AM [facility] CANNABINOIDS SCREEN PANEL Specimen Type: URINE [...] Apr 20, 2024 08:58 AM Reporting Lab: [address] [address] Performing Lab: [address] [address] CANNABINOIDS SCREEN NONE-DETECTED None-Detec nba,Cutoff = 50 ng/mL PH, NATO 5.4 [pH] 4-10 CREATININE, NATO 123.15 mg/dL >20 SP.GRAVITY, NATO 1.026 H 1.00 3-1.02 0 Jul 04, 2024 07:55 AM [facility] COCAINE SCREEN PANEL Specimen Type: URINE [...] Apr 20, 2024 08:58 AM Reporting Lab: [address] [address] Performing Lab: [address] [address] COCAINE SCREEN NONE-DETECTED N one-Detec nba,Cutoff = 300 ng/mL PH, NATO 5.4 [pH] 4-10 CREATININE, NATO 123.15 mg/dL >20 SP.GRAVITY, NATO 1.026 H 1.00 3-1.02 0 Jul 04, 2024 07:55 AM [facility] OXYCODONE SCREEN PANEL Specimen Type: URINE [...] Apr 20, 2024 08:58 AM Reporting Lab: [facility] [address] [facility] [address] Performing Lab: [address] [address] OXYCODONE SCREEN NONE-DETECTED None-Detec nba, Cutoff = 100 ng/mL PH, NATO 5.4 [pH] 4-10 CREATININE, NATO 123.15 mg/dL >20 SP.GRAVITY, NATO 1.026 H 1.00 3-1.02 0 Jul 04, 2024 07:55 AM [facility] OPIATES SCREEN PANEL Specimen Type: URINE [...] Apr 20, 2024 08:58 AM Reporting Lab: [address] [address] Performing Lab: [address] [address] OPIATES SCREEN NONE-DETECTED N one-Detec nba, Cutoff = 300 ng/mL PH, NATO 5.4 [pH] 4-10 CREATININE, NATO 123.15 mg/dL >20 SP.GRAVITY, NATO 1.026 H 1.00 3-1.02 0 Jul 04, 2024 07:51 AM [facility] [id number] PGx Specimen Type: BLOOD Comment: shipped on [id number] Ordering Provider: ALYSHA MOY Report Released Date/Time: Apr 24, 2024 12:11 PM Reporting Lab: [address] [address] Performing Lab: [facility] [address] [place] [place] [address] [id number] PGx comment Jul 04, 2024 07:51 AM [facility] BASIC METABOLIC PANEL (fasting) Specimen Type: SERUM No comment entered. Ordering Provider: MELBA DOE Report Released Date/Time: Jan 06, 2024 03:34 PM Reporting Lab: [address] [address] Performing Lab: [address] [address] UREA NITROGEN 13 mg/dL 7-25 GLUCOSE 123 mg/dL H 65-100 SODIUM 138 mmol/L 135-145 POTASSIUM 4.7 mmol/L 3.5-5.0 CHLORIDE 103 mmol/L 100-110 CO2 27 meq/L 20-30 CREATININE, Serum 0.93 mg/dL 0.50-1.40 eGFR(CKD-EPI 2020) 89 mL/min >60 Jul 04, 2024 07:51 AM [facility] CBC Specimen Type: BLOOD No comment entered. Ordering Provider: MELBA DOE Report Released Date/Time: Jan 06, 2024 03:34 PM Reporting Lab: [address] [address] Performing Lab: [address] [address] WBC 6.85 10*3/uL 4.50-11.00 RBC 4.76 10*6/uL 4.23-5.66 HGB 15.1 g/dL 12.8-17 HCT 43.9 39.2-50.4 MCV 92.2 fL 82-99 MCHC 34.4 g/dL 30.8-35.1 PLT 248 10*3/uL 140-360 RDW-CV 12.4 12.0-16.0 MCH 31.7 pg 26.2-32.6 Jul 04, 2024 07:51 AM [facility] LIVER FUNCTION Specimen Type: SERUM No comment entered. Ordering Provider: MELBA DOE Report Released Date/Time: Jan 06, 2024 03:34 PM Reporting Lab: [facility] [address] [facility] [address] Performing Lab: [facility] [address] [facility] [address] PROTEIN,TOTAL 6.8 g/dL 6.0-8.3 ALBUMIN 4.2 g/dL 3.5-5.0 ALKALINE PHOSPHATASE 84 U/L 40-150 AST 19 U/L 5-34 ALT 27 U/L BILIRUBIN, TOTAL 0.3 mg/dL 0.2-1.2
--- OUTSIDE RECORDS SUMMARY | 2024-07-31 10:48 | XMS_ITS ---
Author Name [facility] [place] Address [address] [place] [address] Care Team Providers Care Network Technical Analyst Name Role Phone NADERMELBA Primary Care Provider [...] PART B Feb 24, 2020 PART B [id number] STAR DOUGHERTY JR PATIENT MEDICARE (WNR) MEDICARE (M) PART A November 24, 2019 PART A [id number] STAR DOUGHERTY JR PATIENT OFFICE OF [facility] NO-FAULT INSURANCE NO FAULT May 12, 2022 NO FAULT [id number] STAR DOUGHERTY JR PATIENT FOR LIFE TFL* Feb 24, 2020 [id number] STAR DOUGHERTY JR PATIENT [facility] (WNR) TRICA RE(WN R) Jul 26, 2017 (WNR) [id number] 14 ROSALES DOUGHERTY PATIENT Selected Encounter This section includes the information on record at [place] for the Encounter. Date/Time Encounter Type Encounter Description Reason Provider Source Jul 11, 2024 03:00 PM OFFICE O/P EST MOD 30 MIN [facility]ENT[facility] CLINIC - IND ICD-10-CM F41.1 Generalized anxiety disorder TODD MOY [facility] Encounter Template Text not used by [place] Assessments - Encounter Diagnoses This section includes the primary and secondary diagnoses documented for the Encounter. Date/Time Primary/Secondary Diagnosis Diagnosis Name Provider Source Jul 13, 2024 04:34 PM PRIMARY Generalized anxiety disorder TODD MOY [place] [facility] [place] [facility] Jul 13, 2024 04:34 PM SECONDARY Insomnia due to other mental disorder TODD MOY [place] [facility] [place] [facility] Plan of Treatment: Future Appointments (+ 6 months) and Future Tests (+/- 45 days) The Plan of Treatment section includes future care activities for the [facility] [place] [facility] This section includes future appointments and future orders which are active, pending or scheduled. Future Appointments This section includes appointments that were scheduled to occur 6 months from the date of the Encounter, up to a maximum of 20 appointments. The data comes from all [place] treatment facilities. Appointment Date/Time Appointment Type Appointme nt Facility Name Jul 31, 2024 10:30 AM AMBULATORY - NONE [place] [facility] [place] [facility] Aug 01, 2024 08:45 AM AMBULATORY - MEDICINE [place] [facility] [place] [facility] Aug 01, 2024 09:00 AM AMBULATORY - MEDICINE [place] [facility] [facility] Aug 01, 2024 01:00 PM AMBULATORY - MEDICINE [place] [facility] [facility] Aug 08, 2024 01:00 PM AMBULATORY - MEDICINE [place] [facility] [facility] Aug 09, 2024 10:30 AM AMBULATORY - PSYCHIATRY [place] [facility] [place] [facility] Aug 15, 2024 10:00 AM AMBULATORY - MEDICINE [place] [facility] [place] [facility] Sep 14, 2024 11:30 AM AMBULATORY - MEDICINE [place] [facility] [facility] Jan 08, 2025 01:00 PM AMBULATORY - MEDICINE [place] [facility] [facility] Active, Pending, and Scheduled Orders This section includes a listing of several types of active, pending, and scheduled orders, including clinic medications orders, diagnostic test orders, procedure orders and consult orders; where the start date of the order is 45 days before the date of the Encounter or 45 days after the date of theEncounter. The data comes from all [place] treatment facilities. Test Date/Time Test Type Test Details Facility Name Jun 01, 2024 08:16 AM Consult Order PSYCHOTHER SHERRY SWANSON/MAGED OUTPT Cons Marketing Content Manager's Choice [facility] Lab Results: +/- 30 days of the encounter This section includes the Chemistry and Hematology Lab Results on record with [place] for the patient. Radiology Reports and Pathology Reports are provided separately, in subsequent sections. Lab Results This section contains the Chemistry/Hematology Results that were resulted 30 days before or 30 daysafter the date of the Encounter. Date/Time Source Result Type Result - Unit Interpretation Reference Range Comment Jul 04, 2024 07:55 AM [facility] METHADONE SCREEN Specimen Type: URINE Comment: NATO test are qualitative, any L or H flags only indicate a VA alert was sent. Ordering Provider: KARLA LOYA Report Released Date/Time: Apr 20, 2024 08:58 AM Reporting Lab: [facility] [address] [facility] [address] Performing Lab: [facility] [address] [facility] [address] METHADONE SCREEN None detected(Nega tive) L Negative Jul 04, 2024 07:55 AM [facility] ALCOHOL, ETHYL URINE PANEL Specimen Type: [...] Apr 20, 2024 08:58 AM Reporting Lab: [facility] [address] [facility] [address] Performing Lab: [place] [address] [address] ALCOHOL, ETHYL URINE NONE-DETECTED mg/dL NONE-DETEC NBA, cutoff = 10 mg/dL PH, NATO 5.4 [pH] 4-10 CREATININE, NATO 123.15 mg/dL >20 SP.GRAVITY, NATO 1.026 H 1.00 3-1.02 0 Jul 04, 2024 07:55 AM [facility] AMPHETAMINES SCREEN PANEL Specimen Type: URINE [...] Apr 20, 2024 08:58 AM Reporting Lab: [address] [address] Performing Lab: [address] [address] AMPHETAMINES SCREEN NONE-DETECTED None-Detec nba, Cutoff = 1000 ng/mL PH, NATO 5.4 [pH] 4-10 CREATININE, NTAO 123.15 mg/dL >20 SP.GRAVITY, NATO 1.026 H 1.00 3-1.02 0 Jul 04, 2024 07:55 AM [facility] FENTANYL SCREEN PANEL Specimen Type: URINE [...] Apr 20, 2024 08:58 AM Reporting Lab: [address] [place] [address] Performing Lab: [address] [address] FENTANYL SCREEN NONE-DETECTE D ng/mL Negative: Cutoff = 1.00 ng/mL PH, NATO 5.4 [pH] 4-10 CREATININE, NATO 123.70 mg/dL >20 SP.GRAVITY, NATO 1.026 H 1.00 3-1.02 0 Jul 04, 2024 07:55 AM [facility] BENZODIAZEPINES SCREEN PANEL Specimen Type: URINE [...] Apr 20, 2024 08:58 AM Reporting Lab: [address] [address] Performing Lab: [address] [address] BENZODIAZEPINES SCREEN NONE-DETECTED None-Detec nba, Cutoff = 200 ng/mL PH, NATO 5.4 [pH] 4-10 CREATININE, NATO 123.15 mg/dL >20 SP.GRAVITY, NATO 1.026 H 1.00 3-1.02 0 Jul 04, 2024 07:55 AM [facility] BUPRENORPHINE SCREEN PANEL Specimen Type: URINE [...] Apr 20, 2024 08:58 AM Reporting Lab: [address] [address] Performing Lab: [address] [address] BUPRENORPHINE (URINE) NONE-DETECTED None Detected, Cutoff = 10.0 ng/mL PH, NATO 5.4 [pH] 4-10 CREATININE, NATO 123.15 mg/dL >20 SP.GRAVITY, NATO 1.026 H 1.00 3-1.02 0 Jul 04, 2024 07:55 AM [facility] CANNABINOIDS SCREEN PANEL Specimen Type: URINE [...] Apr 20, 2024 08:58 AM Reporting Lab: [address] [address] Performing Lab: [address] [address] CANNABINOIDS SCREEN NONE-DETECTED None-Detec nba,Cutoff = 50 ng/mL PH, NATO 5.4 [pH] 4-10 CREATININE, NATO 123.15 mg/dL >20 SP.GRAVITY, NATO 1.026 H 1.00 3-1.02 0 Jul 04, 2024 07:55 AM [facility] COCAINE SCREEN PANEL Specimen Type: URINE [...] Apr 20, 2024 08:58 AM Reporting Lab: [address] [address] Performing Lab: [address] [address] COCAINE SCREEN NONE-DETECTED N one-Detec nba,Cutoff = 300 ng/mL PH, NATO 5.4 [pH] 4-10 CREATININE, NATO 123.15 mg/dL >20 SP.GRAVITY, NATO 1.026 H 1.00 3-1.02 0 Jul 04, 2024 07:55 AM [facility] OPIATES SCREEN PANEL Specimen Type: URINE [...] Apr 20, 2024 08:58 AM Reporting Lab: [address] [address] Performing Lab: [address] [address] OPIATES SCREEN NONE-DETECTED N one-Detec nba, Cutoff = 300 ng/mL PH, NATO 5.4 [pH] 4-10 CREATININE, NATO 123.15 mg/dL >20 SP.GRAVITY, NATO 1.026 H 1.00 3-1.02 0 Jul 04, 2024 07:55 AM [facility] OXYCODONE SCREEN PANEL Specimen Type: URINE [...] Apr 20, 2024 08:58 AM Reporting Lab: [facility] [address] [facility] [address] Performing Lab: [address] [address] OXYCODONE SCREEN NONE-DETECTED None-Detec nba, Cutoff = 100 ng/mL PH, ANTO 5.4 [pH] 4-10 CREATININE, NATO 123.15 mg/dL >20 SP.GRAVITY, NATO 1.026 H 1.00 3-1.02 0 Jul 04, 2024 07:51 AM [facility] [id number] PGx Specimen Type: BLOOD Comment: shipped on manifest [id number] Ordering Provider: ALYSHA MOY Report Released Date/Time: Apr 24, 2024 12:11 PM Reporting Lab: [address] [address] Performing Lab: [facility] [address] [facility] [address] [id number] PGx comment Jul 04, 2024 07:51 AM [facility] BASIC METABOLIC PANEL (fasting) Specimen Type: SERUM No comment entered. Ordering Provider: MELBA DOE Report Released Date/Time: Jan 06, 2024 03:34 PM Reporting Lab: [facility] [address] [facility] [address] Performing Lab: [address] [address] UREA NITROGEN 13 mg/dL 7-25 GLUCOSE 123 mg/dL H 65-100 SODIUM 138 mmol/L 135-145 POTASSIUM 4.7 mmol/L 3.5-5.0 CHLORIDE 103 mmol/L 100-110 CO2 27 meq/L 20-30 CREATININE, Serum 0.93 mg/dL 0.50-1.40 eGFR(CKD-EPI 2020) 89 mL/min >60 Jul 04, 2024 07:51 AM [facility] LIVER FUNCTION Specimen Type: SERUM No comment entered. Ordering Provider: MELBA DOE Report Released Date/Time: Jan 06, 2024 03:34 PM Reporting Lab: [facility] [address] [facility] [address] Performing Lab: [address] [address] PROTEIN,TOTAL 6.8 g/dL 6.0-8.3 ALBUMIN 4.2 g/dL 3.5-5.0 ALKALINE PHOSPHATASE 84 U/L 40-150 AST 19 U/L 5-34 ALT 27 U/L BILIRUBIN, TOTAL 0.3 mg/dL 0.2-1.2 Jul 04, 2024 07:51 AM [facility] CBC Specimen Type: BLOOD No comment entered. Ordering Provider: MELBA DOE Report Released Date/Time: Jan 06, 2024 03:34 PM Reporting Lab: [address] [address] Performing Lab: [address] [address] WBC 6.85 10*3/uL 4.50-11.00 RBC 4.76 10*6/uL [...] and tobacco- related health factors from the [place] facility where the Encounter took place. Current Smoking Status This section includes the most current smoking, or tobacco-related health factor, from the [place] facility where the Encounter took place. Date/Time Current Smoking Status Comment Nick kowalski Jul 10, 2024 08:30 AM VA-TOBACCO NEVER U SED CIGARETTES [facility] Tobacco Use History This section includes a history of the smoking, or tobacco-related health factors, that were collected on or before the date of the Encounter. The data comes from the [place] facility where the Encounter took place. Date/Time Smoking Status/Tobacco Use Comment F acility Jul 10, 2024 08:30 AM VA-TOBACCO NEVER U SED OTHER TYPE [facility] Sep 04, 2021 02:56 PM VA-TOBACCO NEVER USED [facility] Encounter Notes: All associated encounter notes This section contains the clinical notes associated to the Encounter. Date/Time Encounter Note(s) Provider Source Jul 11, 2024 03:22 PM PRIMARY CARE NURSE PRACTITIONER OUTPATIENT NOTE: LOCAL TITLE: NURSE PRACTITIONER OUTPATIENT NOTE STANDARD TITLE: PRIMARY CARE NURSE PRACTITIONER OUTPATIENT NOTE DATE OF NOTE: JUL 11, 2024@15:22 ENTRY DATE: JUL 11, 2024@15:22:20 AUTHOR: YANCY MOYIGNER: URGENCY: STATUS: COMPLETED OUTPATIENT MENTAL HEALTH CLINIC: FOLLOW-UP HPI: STAR DOUGHERTY JR, a 68 y/o male [place] previously diagnosed with Generalized Anxiety Disorder with Panic Attacks presents for [facility] Follow-Up appointment. Last seen by This Provider on 06/20/24 Use of LORAZEPAM has been inconsistent but is now taking this medication most days of the week. Does feel that PREGABILIN has been beneficial for symptoms of anxiety and denies side effects but any benefit has been subtle. Acknowledges that his medications got a little bit messed up and he's not sure how consistently he's been taking recently initiated MIRTAZAPINE. Further clarifies that he and his daughter had an argument about how he was not consistently taking his medications and so he's not actually sure which medications he's been taking or when Denied improvement in sleep, weight gain or sedation Takes PREGABILIN at least once per day. Had been confused by the 'As Needed' guidance. [place] was informed that this is not a PRN medication. Feels that there's slight benefit re anxiety and denies somnolence or ataxia as side effects. No perceptible improvement on pain symptoms. [place] emphasizes extent to which pain contributes to MH symptoms and poor sleep [place] explicitly and convincingly denied SI, intent or [...] 08/12/2023 MARIBEL SHAFER S Tinnitus H93.19, Onset 05/31/2023NovemberBERTO Pain R52., Onset 05/31/2023NovemberBERTO Anxiety F41.9, Onset 09/04/2021NovemberBERTO Benign prostatic hyperplasia N40.1, 06/16/2023 MELBA DOE ALLERGIES: Data on this list may not be complete. Please check [facility]. FACILITY ALLERGY/ADR -------- No Remote Allergy/ADR Data available for this patient [place] [facility] [place] [facility] No Known Allergies MEDICATIONS: reviewed and [...] MOUTH TWICE ACTIVE DAILY FOR Indication: ANXIETY LABS AND STUDIES: METHADONE SCREEN (UR): None detected(Negative) L FENTANYL SCREEN UR: NONE-DETECTED NATO PH: 5.4 CREAT NATO VALITITY: 123.70 SG NATO VALIDITY: 1.026 H AMPHETAMINES (CL): NONE-DETECTED UR BENZODIAZEPINE: NONE-DETECTED UR COCAINE: NONE-DETECTED UR OPIATES: NONE-DETECTED UR THC: NONE-DETECTED OXYCODONE EIA: NONE-DETECTED BUPRENORPHINE STICK: NONE-DETECTED ALCOHOL URINE: NONE-DETECTED NATO PH: 5.4 CREAT NATO VALITITY: 123.15 SG NATO VALIDITY: 1.026 H PHARMACOGENOMICS PHASeR: comment WBC: 6.85 RBC: 4.76 HGB: 15.1 HCT: 43.9 MCV: 92.2 MCHC: 34.4 RDW: 12.4 PLT: 248 MCH: 31.7 GLUCOSE: 123 H UREA NITROGEN: 13 SODIUM: 138 POTASSIUM: 4.7 CHLORIDE: 103 CO2: 27 PROTEIN,TOTAL: 6.8 ALBUMIN: 4.2 ALKALINE PHOSPHATASE: 84 SGOT: 19 SGPT: 27 BILIRUBIN,TOT.: 0.3 CREATININE-EGFR: 0.93 eGFR CKD-EPI 2020: 89 SAFETY ASSESSMENT: No acute safety concerns. Convincingly denies any thoughts, intents, or plans to harm self or others. Chronic risk is elevated by status and mental illness but is currently mitigated by participation in treatment and demonstration of help-seeking behaviors. IMPRESSION: Hampton presents as polite, cooperative and treatment motivated was strongly urged to limit use of lorazepam which has escalated to almost daily. Also advised that if he does not consistently take his medications or even know which medications he is or isn't taking then it's very difficult to asses their efficacy (or lack thereof) with confidence [place] advised as to increased risk of respiratory depression, sedation, impaired coordination, increased fall risk and impaired cognition. Advised not to use while driving or operating machinery. Also advised of risk for dependence and advised not to combine with other [employer]PER[employer] CABLE TOOL depressants PDMP and chart review do suggest any history of misuse or diversion. Advised to monitor for and report any s/sx of Somnolence, Sedation, Dizziness, Fatigue and respiratory depression. Cautioned that this medication can also impair coordination and reaction time Will increase mirtazapine in the hopes of better addressing anxiety No acute safety concerns Diagnosis: Generalized Anxiety Disorder w/ Panic Attacks Insomnia Disorder r/o PTSD PLAN: 1) CONTINUE LORAZEPAM 0.5 mg PO DAILY PRN 2) CONTINUE FLUoxetine 40 MG PO DAILY 3) CONTINUE BUSPIRONE 30 MG PO BID 4) CONTINUE PREGABILIN 50 TO 100 MG PO BID PRN 5) CONTINUE MIRTAZAPINE 30 MG PO QHS Labs: none today Follow-Up: 08/09/24 Discussed risks and benefits of proposed medication treatments including FDA approved indications and off-label uses, as well as common and severe side effects. comprehended all information discussed, had opportunity to ask questions which were answered to their satisfaction, and voluntarily and without duress agreed to trial as documented. CONTACT AND CRISIS INFO: informed that This Provider can be contacted at , EXT [phone] or via Secure Messaging. 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 [...] MOY Psychiatric Mental Health Nurse Practitioner Signed: 07/13/2024 16:33 YANCY MOY [facility]
--- OUTSIDE RECORDS SUMMARY | 2024-07-31 10:48 | XMS_ITS | Continuity of Care Document ---
Author Organization [facility] Address [address] [place] [address]- Care Team Providers Care Solar Installation Helper Name Role Phone Moy COLLINS, Zena Gross Primary Care Physician Encounter [facility] Date(s): 06/03/24 - 07/03/24 [facility] [address], [place] [address] Attending Physician: AdmtrMichel Admitting Physician: Admtr, Ar8 Referring Physician: Admtr, Ar8 Encounter Type: Triage Allergies, Adverse Reactions, Alerts No Known Allergies Immunizations Given and Recorded Vaccine Date Status Refusal Reason influenza virus vaccine, inactivated 1 05/18/23 Gi [place] influenza virus vaccine, inactivated 04/21/21 Mark rded influenza virus vaccine, inactivated 05/09/20 Mark rded influenza virus vaccine, inactivated 04/28/19 Mark rded influenza virus vaccine, inactivated 05/07/17 Mark rded influenza virus vaccine, inactivated 04/08/16 Mark rded influenza virus vaccine, inactivated 07/09/15 Mark rded influenza virus vaccine, inactivated 05/31/15 Mark rded influenza virus vaccine, inactivated 07/02/14 Mark rded influenza virus vaccine, inactivated 05/26/13 Mark rded influenza virus vaccine, inactivated 05/09/12 Mark rded influenza virus vaccine, inactivated 05/20/11 Mark rded [id number] bivalent booster vax 07/17/22 Recorded SARS-CoV-2 (COVID-19) mRNA BNT-162b2 vac 04/21/21 Recorded SARS-CoV-2 (COVID-19) mRNA BNT-162b2 vac 10/07/20 Recorded SARS-CoV-2 (COVID-19) mRNA BNT-162b2 vac 09/16/20 Recorded Influenza Virus Vaccine (oldterm) 04/25/19 Recorde d Flu Vaccine 05/25/17 Recorded Zoster Vaccine Live 05/09/12 Recorded tetanus/diphtheria/pertussis, acel(Tdap) 07/26/07 Recorded 1Result Comment: [facility]# [id number] Medications Ativan 0.5 mg oral tablet 1 tablet = 0.5 mg, By Mouth, Daily, PRN for anxiety, # 30 tablet, 0 Refills, Maintenance, 04/01/23 4:29:00 PM EDT, Tablet, [id number], Partial fill upon patient request if the prescription is for a schedule II opioid drug., 175, cm, 12/14/22 8:51:00 EDT, Height Start Date: 04/01/23 Stop Date: 05/01/23 Status: Ordered Quantity: 30.0 Unit: tablet Repeat number: 1 atorvastatin 20 mg oral tablet 1 tablet = 20 mg, By Mouth, Daily, # 90 tablet, 3 Refills, Maintenance, 12/14/22 8:56:00 AM EDT, [facility], Partial fill upon patient request if the prescription is for a schedule II opioid drug., 175, cm, 12/14/22 8:51:00 EDT, Height Start Date: 12/14/22 Stop Date: 12/09/23 Status: Ordered Quantity: 90.0 Unit: tablet Repeat number: 4 busPIRone 15 mg oral tablet 1 tablet, By Mouth, 2 times a day, # 60 tablet, 11 Refills, Maintenance, 07/09/22 5:32:00 PM EST, [facility], 175, cm, 06/23/22 14:12:00 EST, Height Start Date: 07/09/22 Status: Ordered Quantity: 60.0 Unit: tablet Repeat number: 1 FLUoxetine 40 mg oral capsule 1 capsule, By Mouth, Daily, # 90 capsule, 1 Refills, Maintenance, 05/06/23 7:27:00 AM EDT, [facility], 175, cm, 04/20/23 12:03:00 EDT, Height Start Date: 05/06/23 Status: Ordered Quantity: 90.0 Unit: capsule Repeat number: 1 Problem List Condition Confirmation Course Effective Dates Status H ealth Status Informant Anxiety Confirmed Active BPH (benign prostatic hyperplasia) Confirmed Active Coronary arteriosclerosis Confirmed Active GHULAM (generalized anxiety disorder) Confirmed Active MDD (major depressive disorder), recurrent episode, moderate Confirmed Active Social History Social History Type Response Smoking Status Never smoker entered on: 11/06/16 Sex Sex Representation Male (finding) Patient Care team information Care Team Personnel Name: Moy COLLINS, Zena Gross Position: [facility] PCO Associate Professional Member Role: PCP Address: [address] [place] [id number] Telecom: Care Team Related Persons Name: ADOLFO DOUGHERTY Insurance Providers Guarantor name: STAR DOUGHERTY Health Plan Information #: 1 Payer: MEDICARE PART B OUTPT Member Number: NA Policy Number: NA Group Number: NA Health Plan Information #: 2 Payer: FOR LIFE MCR A ONLY Member Number: NA Policy Number: NA Group Number: NA
== END 2024-07-31 11:13 | disposition home or self-care (01) ==
PROVIDERS: Visit Provider Nurse Practitioner Family
DX: Z01.818 Encounter for other preprocedural examination (principal); Z12.11 Encounter for screening for malignant neoplasm of colon
CPT/HCPCS: 99024

== ENCOUNTER → 2024-07-31 09:55 | Outpatient (BNVA) | payer MEDICARE, OTHER, SELFPAY | PROVIDERS: Visit Provider Nurse Practitioner Family | DX: Z12.11 Encounter for screening for malignant neoplasm of colon (principal) | CPT/HCPCS: 99212 ==

== ENCOUNTER 2024-11-07 08:45 | Day surgery (SDC) | payer MEDICARE, OTHER, SELFPAY ==
[2024-11-03 14:29] VITALS: BMI 27.1
--- OUTSIDE RECORDS SUMMARY | 2024-11-06 17:32 | XMS_ITS ---
Author Name [facility] Address [address] [place] [id number] Care Team Providers Care Personal Consultant Name Role Phone MELBA DOE Primary Care [...] PART B Feb 24, 2020 PART B [id number] [phone] STAR DOUGHERTY JR PATIENT MEDICARE (WNR) MEDICARE (M) PART B Feb 24, 2020 PART B [id number] DOUGHERTY TONYLYNNE PATIENT MEDICARE (WNR) MEDICARE (M) PART A November 24, 2019 PART A [id number] STAR DOUGHERTY JR PATIENT MEDICARE (WNR) MEDICARE (M) PART A November 24, 2019 PART A [id number] ODUGHERTY STAR COLEMAN PATIENT OFFICE OF REGIONAL DRY BOX TENDER NO-FAULT INSURANCE NO FAULT May 12, 2022 NO FAULT [id number] LADONNA COLEMANSTAR PATIENT FOR LIFE SUPPLEMEN QI TFL Feb 24, 2020 FOR LIFE [id number] ROSALES DOUGHERTY PATIENT FOR LIFE TFL* Feb 24, 2020 [id number] STAR DOUGHERTY JR PATIENT Selected Encounter This section includes the [...] PM PRIMARY Chronic pain syndrome CLARA ROJAS [place] [facility] [place] [facility] Plan of Treatment: Future Appointments (+ 6 months) and Future Tests (+/- 45 days) The Plan of Treatment section includes future care activities for the [facility] [place] [facility] This section includes future appointments [...] 14, 2024 11:00 AM AMBULATORY - MEDICINE [facility] [place] [facility] Jun 20, 2024 11:00 AM AMBULATORY - PSYCHIATRY [place] [facility] [place] [facility] Jun 20, 2024 01:00 PM AMBULATORY - MEDICINE [place] [facility] [place] [facility] Jun 27, 2024 01:00 PM AMBULATORY - MEDICINE [place] [facility] [place] [facility] Jul 04, 2024 01:00 PM AMBULATORY - MEDICINE [place] [facility] [place] [facility] Jul 05, 2024 01:00 PM AMBULATORY - MEDICINE [place] [facility] [place] [facility] Jul 10, 2024 08:30 AM AMBULATORY - MEDICINE [place] [facility] [place] [facility] Jul 11, 2024 03:00 PM AMBULATORY - PS[place]CHIATRY [place] [facility] [place] [facility] Jul 31, 2024 10:30 AM AMBULATORY - NONE [facility] [place] [facility] Aug 01, 2024 01:00 PM [facility]ULATORY [facility]ICINE [facility] [place] [facility] Aug 08, 2024 01:00 PM AMBULATORY [facility] MEDICINE [facility] [place] [facility] Aug 09, 2024 10:30 AM AMBULATORY - PSYCHIATRY [facility] [place] [facility] Aug 15, 2024 10:00 AM AMBULATORY - MEDICINE [facility] [place] [facility] Aug 21, 2024 02:30 PM AMBULATORY - MEDICINE [facility] [place] [facility] Aug 29, 2024 09:30 AM AMBULATORY - MEDICINE [facility] [place] [facility] Aug 30, 2024 01:00 PM AMBULATORY - MEDICINE [facility] [place] [facility] Sep 12, 2024 01:45 PM AMBULATORY - MEDICINE [facility] [place] [facility] Sep 14, 2024 10:30 AM AMBULATORY - PSYCHIATRY [facility] [place] [facility] Sep 14, 2024 11:30 AM AMBULATORY - MEDICINE [facility] [place] [facility] Sep 18, 2024 11:30 AM AMBULATORY - MEDICINE [facility] [place] [facility] Lab Results: +/- 30 days of [...] Type Result - Unit Interpretation Reference Range Specimen Type Comment Jul 04, 2024 07:55 AM [place] [facility] [place] [facility] METHADONE SCREEN URINE Specimen Type: URINE Comment: NATO test are qualitative, any L or H flags only indicate a [facility] alert was sent. Ordering Provider: CESAR LOYA Report Released Date/Time: Apr 20, 2024 08:58 AM Reporting [facility] [place] [facility] [address] [facility] [address] Performing Lab: [facility] [address] [facility] [address] METHADONE SCREEN None detected(Negative) L Negative Jul 04, 2024 07:55 AM [facility] ALCOHOL, ETHYL URINE PANEL URINE Specimen Typ e: URINE Comment: Urine with Cr <5 is [...] 11 may have been adulterated. Ordering Provider: CESAR LOYA Report Released Date/Time: Apr 20, 2024 08:58 AM Reporting Lab: [address] [address] Performing Lab: [address] [address] ALCOHOL, ETHYL URINE NONE-DETECTED mg/dL NONE-DETECTED, cutoff = 10 mg/dL PH, NATO 5.4 [pH] 4-10 CREATININE, NATO 123.15 mg/dL >20 SP.GRAVITY, NATO 1.026 H 1.003-1.020 Jul 04, 2024 07:55 AM [facility] AMPHETAMINES SCREEN PANEL URINE Specimen Type : URINE Comment: Urine with Cr <5 is [...] 11 may have been adulterated. Ordering Provider: CESAR LOYA Report Released Date/Time: Apr 20, 2024 08:58 AM Reporting Lab: [address] [address] Performing Lab: [address] [address] AMPHETAMINES SCREEN NONE-DETECTED None-D etected, Cutoff = 1000 ng/mL PH, NATO 5.4 [pH] 4-10 CREATININE, NATO 123.15 mg/dL >20 SP.GRAVITY, NATO 1.026 H 1.003-1.020 Jul 04, 2024 07:55 AM [facility] FENTANYL SCREEN PANEL URINE Specimen Type: UR INE Comment: Urine with Cr <5 is diluted [...] CONFIRMATION NOT SENT BY LAB. Ordering Provider: CESAR LOYA Report Released Date/Time: Apr 20, 2024 08:58 AM Reporting Lab: [address] [address] Performing Lab: [address] [address] FENTANYL SCREEN NONE-DETECTED ng/mL Nega tive: Cutoff = 1.00 ng/mL PH, NATO 5.4 [pH] 4-10 CREATININE, NATO 123.70 mg/dL >20 SP.GRAVITY, NATO 1.026 H 1.003-1.020 Jul 04, 2024 07:55 AM [facility] BENZODIAZEPINES SCREEN PANEL URINE Specimen T ype: URINE Comment: Urine with Cr <5 is [...] 11 may have been adulterated. Ordering Provider: CESAR LOYA Report Released Date/Time: Apr 20, 2024 08:58 AM Reporting Lab: [address] [address] Performing Lab: [address] [address] BENZODIAZEPINES SCREEN NONE-DETECTED Non e-Detected, Cutoff = 200 ng/mL PH, NATO 5.4 [pH] 4-10 CREATININE, NATO 123.15 mg/dL >20 SP.GRAVITY, NATO 1.026 H 1.003-1.020 Jul 04, 2024 07:55 AM [facility] BUPRENORPHINE SCREEN PANEL URINE Specimen Typ e: URINE Comment: Urine with Cr <5 is [...] 11 may have been adulterated. Ordering Provider: CESAR LOYA Report Released Date/Time: Apr 20, 2024 08:58 AM Reporting Lab: [address] [address] Performing Lab: [address] [address] BUPRENORPHINE (URINE) NONE-DETECTED None Detected, Cutoff = 10.0 ng/mL PH, NATO 5.4 [pH] 4-10 CREATININE, NATO 123.15 mg/dL >20 SP.GRAVITY, NATO 1.026 H 1.003-1.020 Jul 04, 2024 07:55 AM [facility] COCAINE SCREEN PANEL URINE Specimen Type: URI NE Comment: Urine with Cr <5 is diluted [...] 11 may have been adulterated. Ordering Provider: CESAR LOYA Report Released Date/Time: Apr 20, 2024 08:58 AM Reporting Lab: [address] [address] Performing Lab: [address] [address] COCAINE SCREEN NONE-DETECTED None-Detect ed,Cutoff = 300 ng/mL PH, NATO 5.4 [pH] 4-10 CREATININE, NATO 123.15 mg/dL >20 SP.GRAVITY, NATO 1.026 H 1.003-1.020 Jul 04, 2024 07:55 AM [place] [employer] [facility] ApogenixMOUNTAIN VIEW REGIONAL MEDICAL CENTERMaui Imaging [facility] CANNABINOIDS SCREEN PANEL URINE Specimen Type : URINE Comment: Urine with Cr <5 is [...] 11 may have been adulterated. Ordering Provider: CESAR LOYA Report Released Date/Time: Apr 20, 2024 08:58 AM Reporting Lab: [facility] [employer] [address] Performing Lab: [address] [address] CANNABINOIDS SCREEN NONE-DETECTED None-D etected,Cutoff = 50 ng/mL PH, NATO 5.4 [pH] 4-10 CREATININE, NATO 123.15 mg/dL >20 SP.GRAVITY, NATO 1.026 H 1.003-1.020 Jul 04, 2024 07:55 AM [facility]oker[facility] ProcessUnityPURCELL MUNICIPAL HOSPITAL – PURCELLMaui Imaging [facility] OPIATES SCREEN PANEL URINE Specimen Type: URI NE Comment: Urine with Cr <5 is diluted [...] 11 may have been adulterated. Ordering Provider: CESAR LOYA Report Released Date/Time: Apr 20, 2024 08:58 AM Reporting Lab: [facility]of[facility]oker[facility] ProcessUnity[address] [address] Performing Lab: [address] [address] OPIATES SCREEN NONE-DETECTED None-Detect ed, Cutoff = 300 ng/mL PH, NATO 5.4 [pH] 4-10 CREATININE, NATO 123.15 mg/dL >20 SP.GRAVITY, NATO 1.026 H 1.003-1.020 Jul 04, 2024 07:55 AM [facility] OXYCODONE SCREEN PANEL URINE Specimen Type: U RINE Comment: Urine with Cr <5 is diluted [...] 11 may have been adulterated. Ordering Provider: CESAR LOYA Report Released Date/Time: Apr 20, 2024 08:58 AM Reporting Lab: [address] [address] Performing Lab: [address] [address] OXYCODONE SCREEN NONE-DETECTED None-Dete cted, Cutoff = 100 ng/mL PH, NATO 5.4 [pH] 4-10 CREATININE, NATO 123.15 mg/dL >20 SP.GRAVITY, NATO 1.026 H 1.003-1.020 Jul 04, 2024 07:51 AM [facility] [id number] PGx BLOOD Specimen Type: BLOOD Comment: shipped on manifest [id number] Ordering Provider: YANCY MOY Report Released Date/Time: Apr 24, 2024 12:11 PM Reporting Lab: [facility] [address] [facility] [address] Performing Lab: [facility] [address] [facility] [address] [id number]_[id number] PGx comment Jul 04, 2024 07:51 AM [facility] LIVER FUNCTION SERUM Specimen Type: SERUM No comment entered. Ordering Provider: MELBA DOE Report Released Date/Time: Jan 06, 2024 03:34 PM Reporting Lab: [facility] [address] [facility] [address] Performing Lab: [facility] [address] [facility] [address] PROTEIN,TOTAL 6.8 g/dL 6.0-8.3 ALBUMIN 4.2 g/dL 3.5-5.0 ALKALINE PHOSPHATASE 84 U/L 40-150 AST 19 U/L 5-34 ALT 27 U/L BILIRUBIN, TOTAL 0.3 mg/dL 0.2-1.2 Jul 04, 2024 07:51 AM [facility] BASIC METABOLIC PANEL (fasting) SERUM Specime n Type: SERUM No comment entered. Ordering Provider: MELBA DOE Report Released Date/Time: Jan 06, 2024 03:34 PM Reporting Lab: [facility] [address] [facility] [address] Performing Lab: [address] [address] UREA NITROGEN 13 mg/dL 7-25 GLUCOSE 123 mg/dL H 65-100 SODIUM 138 mmol/L 135-145 POTASSIUM 4.7 mmol/L 3.5-5.0 CHLORIDE 103 mmol/L 100-110 CO2 27 meq/L 20-30 CREATININE, Serum 0.93 mg/dL 0.50-1.40 eGFR(CKD-EPI 2020) 89 mL/min >60 Jul 04, 2024 07:51 AM [facility] CBC BLOOD Specimen Type: BLOOD No comment entered. Ordering Provider: MELBA DOE Report Released Date/Time: Jan 06, 2024 03:34 PM Reporting Lab: [facility] [address] [facility] [address] Performing Lab: [address] [address] WBC 6.85 10*3/uL 4.50-11.00 RBC 4.76 10*6/uL [...] VA-TOBACCO NEVER USED [facility] [place] [facility] Encounter Notes: All associated encounter notes This section contains the clinical notes associated to the Encounter. Date/Time Encounter Note(s) Provider Source Jun 13, 2024 03:08 PM PHYSICAL THERAPY NOTE: LOCAL TITLE: ACTIVE INTERDISCIPLINARY SESSION NOTE STANDARD TITLE: PHYSICAL THERAPY NOTE DATE OF NOTE: JUN 13, 2024@15:08 ENTRY DATE: JUN 13, 2024@15:08:41 AUTHOR: CLARA ROAJS EXP COSIGNER: URGENCY: STATUS: COMPLETED ACTIVE INTERDISCIPLINARY [...] participant. Prior to the AMP program this [place] confirmed their willingness and interest in participating [...] limitations to individualization of care during sessions. [place] informed that individualized breakout sessions can be provided as deemed necessary by the AMP provider or as requested by the . Number of Veterans in attendance for todays [...] home practice expectations, including assigned worksheets. Plan: [place] Joe to follow up for session 3 of [...] during today's session. Assessment/Plan: [Yes] Did the [place] confirm completion (showed worksheets, returned, or verbally) of the home practice work sheets from theprevious session? If applicable, please describe the barriers the [place] Joe communicated to completing the previous session's worksheets: [Yes] [place] was an active participant and provided relevant and on topic contributions during today's session. [Yes] The suicide and homicide risk were determined to be low for this during today's session. [Yes] No other acute psychological distress was observed for this during today's session. [Yes] Continue with AMP upcoming treatment sessions. [No] Additional actions/recommendations are needed for this participating [place]: Layer Out Plate Glass offered make up session to review material he missed from having to leave Session 1 early for another appointment. However, the [place] felt he understood the material after reviewing it on his own and discussing it further in session today. /es/ CLARA ROJAS, PH.D. CLINICAL HEALTH PSYCHOLOGIST Signed: 06/14/2024 09:30 06/13/2024 ADDENDUM STATUS: COMPLETED Physical Therapy Note AMP Interdisciplinary Group Session: 2 ======== Please see the session summary portion of [facility] Interdisciplinary Note for details describing the content, strategies, and skills taught during todays session. Assessment/Plan: [NO] Did the [place] require any suggestions for modifications from the AMP PT to specific skills/strategies performed as part of their home practice since last session? If yes, please describe: [NO] Did specific issues of concern or barriers to participation regarding this [place] come up during todays session? If yes, these concerns are detailed here: [YES] This [place] verbalized and/or demonstrated understanding in the content, [...] DPT PHYSICAL THERAPIST Signed: 06/14/2024 07:28 CLARA ROJASRL [place] [facility]
--- OUTSIDE RECORDS SUMMARY | 2024-11-06 17:32 | XMS_ITS | Encounter Summary ---
Author Name [facility] [place] [facility] [place] Address [address] [place] [id number] Care Team Providers Care Trial Judge Name Role Phone NADER MELBA Primary Care [...] PART B Feb 24, 2020 PART B [id number] [phone] LADONNA STAR PATIENT MEDICARE (WNR) MEDICARE (M) PART B Feb 24, 2020 PART B [id number] [place] STAR PATIENT MEDICARE (WNR) MEDICARE (M) PART A November 24, 2019 PART A [id number] [place] STAR PATIENT MEDICARE (WNR) MEDICARE (M) PART A November 24, 2019 PART A [id number] [phone] LADONNA TONYLYNNE PATIENT OFFICE OF REGIONAL CADDY PACKER NO-FAULT INSURANCE NO FAULT May 12, 2022 NO FAULT [id number] LADONNA COLEMANSTAR PATIENT FOR LIFE SUPPLEMEN QI TFL Feb 24, 2020 FOR LIFE [id number] ROSALES DOUGHERTY PATIENT FOR LIFE TFL* Feb 24, 2020 [id number] STAR DOUGHERTY JR PATIENT Selected Encounter This section includes the information on record at [place] for the Encounter. Date/Time Encounter Type Encounter Description Reason Provider Source Apr 12, 2024 11:00 AM OFFICE O/P EST HI 40 MIN PAIN CLINIC ICD-10-CM R52 Pain, unspecified CUTLER,PEREZ Giraldo E Encounter Template Text not used by [place] Assessments - Encounter Diagnoses This section includes the primary and secondary diagnoses documented for the Encounter. Date/Time Primary/Secondary Diagnosis Diagnosis Name Provider Source Apr 13, 2024 09:24 AM PRIMARY Pain, unspecified CUTLER,PEREZ Giraldo [place] [facility] [place] [facility] Apr 13, 2024 09:24 AM SECONDARY Anxiety disorder, unspecified CUTLER,[facility]TR [facility] [place] [facility] Apr 13, 2024 09:24 AM SECONDARY Radiculopathy, cervical region CUTLER,[facility] CNT [facility] [place] [facility] Plan of Treatment: Future Appointments (+ 6 months) and Future Tests (+/- 45 days) The Plan of Treatment section includes future care activities for the patient from all [place] [facility] This section includes future appointments and future [...] 14, 2024 08:30 AM AMBULATORY - MEDICINE [place] C [facility] [place] [facility] Apr 18, 2024 08:00 AM AMBULATORY - MEDICINE [place] C [facility] [place] [facility] Apr 19, 2024 01:00 PM AMBULATORY - MEDICINE [place] C [facility] [facility] Apr 24, 2024 11:00 AM AMBULATORY - PSYCHIATRY [place] [facility] [place] [facility] Apr 24, 2024 01:00 PM AMBULATORY - MEDICINE [place] C [facility] [facility] Apr 26, 2024 01:00 PM AMBULATORY - MEDICINE [place] C [facility] [facility] [...] NTRL [place] [facility] May 22, 2024 10:30 AM AMBULATORY - PSYCHIATRY [place] [facility] [place] [facility] May 26, 2024 11:00 AM AMBULATORY - MEDICINE [place] C [facility] [facility] May 31, 2024 01:00 PM AMBULATORY - MEDICINE [place] C [facility] [place] [facility] Jun 06, 2024 01:00 PM AMBULATORY - MEDICINE [place] C [facility] [place] [facility] Jun 13, 2024 01:00 PM AMBULATORY - MEDICINE [place] C [facility] [place] [facility] Jun 14, 2024 11:00 AM AMBULATORY - MEDICINE [place] C [facility] [place] [facility] Jun 20, 2024 11:00 AM AMBULATORY - PSYCHIATRY [place] [facility] [place] [facility] Jun 20, 2024 01:00 PM AMBULATORY - MEDICINE [place] C [facility] [facility] Lab Results: +/- 30 days of [...] Unit Interpretation Reference Range Specimen Type Comment Apr 05, 2024 09:14 AM [place] [facility] [place] [facility] LIPID PANEL FASTING SERUM Specimen Type: SERUM No comment entered. Ordering Provider: MELBA DOE Report Released Date/Time: Mar 29, 2024 09:37 AM Reporting Lab: [place] [facility] [place] [address] [address] Performing Lab: [facility] [place] [facility] [address] [facility] [address] CHOLESTEROL 167 mg/dL TRIGLYCERIDE 231 mg/dL H 0-150 LDL calculated 80 mg/dL 0-129 CHOL/HDL 4.1 HDL CHOLESTEROL 41 mg/dL 40-60 Apr 05, 2024 09:14 AM [facility] [place] [facility] BASIC METABOLIC PANEL (fasting) SERUM Specime n Type: SERUM No comment entered. Ordering Provider: MELBA DOE Report Released Date/Time: Mar 29, 2024 09:37 AM Reporting Lab: [facility] [place] [facility] [address] [facility] [address] Performing Lab: [facility] [address] [facility] [address] UREA NITROGEN 22 mg/dL 7-25 GLUCOSE 128 mg/dL H 65-100 SODIUM 140 mmol/L 135-145 POTASSIUM 4.2 mmol/L 3.5-5.0 CHLORIDE 103 mmol/L 100-110 CO2 26 meq/L 20-30 CREATININE, Serum 1.02 mg/dL 0.50-1.40 eGFR(CKD-EPI 2020) 80 mL/min >60 Apr 05, 2024 09:14 AM [facility] VITAMIN B12 SERUM Specimen Type: SERUM No comment entered. Ordering Provider: MELBA DOE Report Released Date/Time: Mar 29, 2024 09:37 AM Reporting Lab: [facility] [place] [facility] [address] [facility] [address] Performing Lab: [facility] [place] [facility] [address] [facility] [address] VITAMIN B12 500 pg/mL 200-900 Apr 05, 2024 09:14 AM [facility] TSH SERUM Specimen Type: SERUM No comment entered. Ordering Provider: MELBA DOE Report Released Date/Time: Mar 29, 2024 09:37 AM Reporting Lab: [facility] [place] [facility] [address] [facility] [address] Performing Lab: [facility] [address] [facility] [address] TSH 1.38 u[IU]/mL 0.35-5.00 Apr 05, 2024 09:14 AM [facility] CBC BLOOD Specimen Type: BLOOD No comment entered. Ordering Provider: MELBA DOE Report Released Date/Time: Mar 29, 2024 09:37 AM Reporting Lab: [facility] [address] [facility] [address] Performing Lab: [facility] [address] [facility] [address] WBC 6.54 10*3/uL 4.50-11.00 RBC 4.83 10*6/uL [...] current pain 7/10. worst in past week 9/10. best has been 5/10. Pain gets worse [...] with his . They were going to [facility] regarding her history of liver transplant, but they have said there is nothing more they can do for her. She has switched to [facility], going there today to evaluate if she [...] and careful IMPRESSION: 68 year old non-combat [employer] who served for 20 years and is 10% service connected for hearing issues. He has no history of substance abuse. 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
--- OUTSIDE RECORDS SUMMARY | 2024-11-06 17:32 | XMS_ITS | Encounter Summary ---
Author Name [facility] Address [address] [place] [id number] Care Team Providers Care Unemployment Insurance Hearing Officer Name Role Phone MELBA DOE Primary [...] PART B Feb 24, 2020 PART B [id number] [phone] STAR DOUGHERTY JR PATIENT MEDICARE (WNR) MEDICARE (M) PART B Feb 24, 2020 PART B [id number] STAR DOUGHERTY JR PATIENT MEDICARE (WNR) MEDICARE (M) PART A November 24, 2019 PART A [id number] STAR DOUGHERTY JR PATIENT MEDICARE (WNR) MEDICARE (M) PART A November 24, 2019 PART A [id number] [phone] STAR DOUGHERTY JR PATIENT OFFICE OF REGIONAL WELLNESS PROGRAM MANAGER NO-FAULT INSURANCE NO FAULT May 12, 2022 NO FAULT [id number] LADONNA TONYLYNNE PATIENT FOR LIFE SUPPLEMEN QI TFL Feb 24, 2020 FOR LIFE [id number] [id number] ROSALES DOUGHERTY PATIENT FOR LIFE TFL* Feb 24, 2020 [id number] STAR DOUGHERTY JR PATIENT Selected Encounter This section includes the information on record at [place] for the Encounter. Date/Time Encounter Type Encounter Description Reason Provider Source Mar 13, 2024 08:00 AM THERAPEUTIC EXERCISES PAIN CLINIC ICD-10-CM M54.59 Other low back pain EUSEBIA STRICKLAND Carlin Encounter Template Text not used by [place] Assessments - Encounter Diagnoses This section includes the primary and secondary diagnoses documented for the Encounter. Date/Time Primary/Secondary Diagnosis Diagnosis Name Provider Source Mar 18, 2024 05:15 AM PRIMARY Other low back pain EUSEBIA LAWTON [place] [facility] [facility] Plan of Treatment: Future Appointments (+ 6 months) and Future Tests (+/- 45 days) The Plan of Treatment section includes future care activities for the patient from all [place] treatmentfacilities. This section includes future appointments and [...] 15, 2024 10:30 AM AMBULATORY - MEDICINE [place] C [place] [facility] Mar 20, 2024 10:00 AM AMBULATORY - MEDICINE [place] [facility] Mar 22, 2024 10:45 AM AMBULATORY - MEDICINE [place] [facility] Mar 22, 2024 11:00 AM AMBULATORY - PSYCHIATRY [place] [facility] [place] [facility] Mar 28, 2024 09:00 AM AMBULATORY - PSYCHIATRY [place] [facility] [place] [facility] Mar 29, 2024 09:00 AM AMBULATORY - MEDICINE [place] [facility] [place] [facility] Mar 30, 2024 09:00 AM AMBULATORY - MEDICINE [place] [facility] Apr 12, 2024 11:00 AM AMBULATORY - MEDICINE [place] [facility] Apr 14, 2024 08:30 AM AMBULATORY - MEDICINE [place] C [facility] [facility] Apr 18, 2024 08:00 AM AMBULATORY - MEDICINE [place] C [facility] [place] [facility] Apr 19, 2024 01:00 PM AMBULATORY - MEDICINE [place] C [facility] [place] [facility] Apr 24, 2024 11:00 AM AMBULATORY - PSYCHIATRY [place] [facility] [facility] Apr 24, 2024 01:00 PM AMBULATORY - MEDICINE [place] C [facility] [place] [facility] Apr 26, 2024 01:00 PM AMBULATORY - MEDICINE [place] C [facility] [place] [facility] May 01, 2024 02:45 PM AMBULATORY - MEDICINE [place] C [facility] [place] [facility] May 02, 2024 02:00 PM AMBULATORY - MEDICINE [place] C [facility] [place] [facility] May 02, 2024 02:30 PM AMBULATORY - MEDICINE [place] C [facility] [place] [facility] May 03, 2024 03:00 PM AMBULATORY - MEDICINE [place] C [facility] [place] [facility] May 10, 2024 03:45 PM AMBULATORY - MEDICINE [place] C [facility] [place] [facility] May 17, 2024 01:45 PM AMBULATORY - MEDICINE [place] C [facility] [place] [facility] Lab Results: +/- 30 days of [...] Type Comment Apr 05, 2024 09:14 AM [facility] LIPID PANEL FASTING SERUM Specimen Type: SERUM No comment entered. Ordering Provider: MELBA DOE Report Released Date/Time: Mar 29, 2024 09:37 AM Reporting Lab: [facility] [address] [facility] [address] Performing Lab: [facility] [address] [address] CHOLESTEROL 167 mg/dL TRIGLYCERIDE 231 mg/dL H 0-150 LDL calculated 80 mg/dL 0-129 CHOL/HDL 4.1 HDL CHOLESTEROL 41 mg/dL 40-60 Apr 05, 2024 09:14 AM [facility] VITAMIN B12 SERUM Specimen Type: SERUM No comment entered. Ordering Provider: MELBA DOE Report Released Date/Time: Mar 29, 2024 09:37 AM Reporting Lab: [facility] [address] [facility] [address] Performing Lab: [facility] [address] [facility] [address] VITAMIN B12 500 pg/mL 200-900 Apr 05, 2024 09:14 AM [facility] BASIC METABOLIC PANEL (fasting) SERUM Specime n Type: SERUM No comment entered. Ordering Provider: MELBA DOE Report Released Date/Time: Mar 29, 2024 09:37 AM Reporting Lab: [facility] [address] [facility] [address] Performing Lab: [facility] [address] [facility] [address] UREA NITROGEN 22 mg/dL 7-25 GLUCOSE 128 mg/dL H 65-100 SODIUM 140 mmol/L 135-145 POTASSIUM 4.2 mmol/L 3.5-5.0 CHLORIDE 103 mmol/L 100-110 CO2 26 meq/L 20-30 CREATININE, Serum 1.02 mg/dL 0.50-1.40 eGFR(CKD-EPI 2020) 80 mL/min >60 Apr 05, 2024 09:14 AM [facility] TSH SERUM Specimen Type: SERUM No comment entered. Ordering Provider: MELBA DOE Report Released Date/Time: Mar 29, 2024 09:37 AM Reporting Lab: [facility] [address] [facility] [address] Performing Lab: [facility] [address] [facility] [address] TSH 1.38 u[IU]/mL 0.35-5.00 Apr 05, 2024 09:14 AM [facility] CBC BLOOD Specimen Type: BLOOD No comment entered. Ordering Provider: MELBA DOE Report Released Date/Time: Mar 29, 2024 09:37 AM Reporting Lab: [facility] [address] [facility] [address] Performing Lab: [facility] [address] [facility] [address] WBC 6.54 10*3/uL 4.50-11.00 RBC 4.83 10*6/uL [...] he's only made 1 trip to the Answer[place] pool; he believes it closes later this [...] path, track in town, or [place]. LORENZO [employer] Access Code: [email or web address] URL: [email or web address] Date: 03/13/2024 Prepared by: [facility] Exercises - Seated Hamstring Stretch - 2 [...] techniques, graded activity for aerobic exercise Update [email or web address] HEP as indicated [Access Code: [email or web address]] [email or web address] Access Code: [email or web address] Patient education was provided for all aspects of care during this clinical encounter. /monisha/ EUSEBIA LAWTON DPT PHYSICAL THERAPIST Signed: 03/13/2024 09:49 EUSEBIA LAWTON CNTRL [place] [facility] Mar 13, 2024 07:54 AM PHYSICAL [...] he's only made 1 trip to the Answer.To pool; he believes it closes later this [...] path, track in town, or [place]. LORENZO [email or web address] Access Code: [email or web address] URL: [email or web address] Date: 03/13/2024 Prepared by: [facility] Exercises - Seated Hamstring [...] techniques, graded activity for aerobic exercise Update [email or web address] HEP as indicated [Access Code: [email or web address]] [email or web address] Access Code: [email or web address] Patient education was provided for all aspects of care during this clinical encounter. /iram LAWTON DPT PHYSICAL THERAPIST Signed: 03/13/2024 09:49 03/13/2024 ADDENDUM STATUS: COMPLETED Dr. Rucker: Ed is interested in increasing his muscle relaxer, he would like a call to discuss this with you. /CAMERON MikeT PHYSICAL THERAPIST Signed: 03/13/2024 09:51 Receipt Acknowledged By: 03/14/2024 14:05 /monisha/ Perez Rucker MD STAFF PHYSICIAN 03/21/2024 ADDENDUM STATUS: COMPLETED Vet cancelled follow-up this date. /iram LAWTON DPT PHYSICAL THERAPIST Signed: 03/21/2024 09:09 EUSEBIA LAWTON CNTRL WSTRN [facility]
--- OUTSIDE RECORDS SUMMARY | 2024-11-06 17:33 | XMS_ITS | Encounter Summary ---
Author Name [facility] [place] Organization [facility] [place] Address [address] [place] [id number] Care Team Providers Care Tow Truck Driver Name Role Phone NADER MELBA Primary [...] PART B Feb 24, 2020 PART B [id number] STAR DOUGHERTY JR PATIENT MEDICARE (WNR) MEDICARE (M) PART B Feb 24, 2020 PART B [id number] DOUGHERTY STAR PATIENT MEDICARE (WNR) MEDICARE (M) PART A November 24, 2019 PART A [id number] DOUGHERTY STAR PATIENT MEDICARE (WNR) MEDICARE (M) PART A November 24, 2019 PART A [id number] [phone] LADONNA COLEMAN EDLYNNE PATIENT OFFICE OF REGIONAL BROOD STATION MANAGER NO-FAULT INSURANCE NO FAULT May 12, 2022 NO FAULT [id number] LADONNA COLEMANSTAR PATIENT FOR LIFE SUPPLEMEN QI TFL Feb 24, 2020 FOR LIFE [id number] ROSALES DOUGHERTY PATIENT FOR LIFE TFL* Feb 24, 2020 [id number] STAR DOUGHERTY JR PATIENT Selected Encounter This section includes the information on record at [place] for the Encounter. Date/Time Encounter Type Encounter Description Reason Provider Source Apr 24, 2024 11:00 AM OFFICE O/P EST MOD 30 MIN MENTAL HEALTH CLINIC - IND ICD-10-CM F41.1 Generalized anxiety disorder TODD MOY [facility] Encounter Template Text not used by [place] Assessments - Encounter Diagnoses This section includes the primary and secondary diagnoses documented for the Encounter. Date/Time Primary/Secondary Diagnosis Diagnosis Name Provider Source Apr 25, 2024 09:02 AM PRIMARY Generalized anxiety disorder TODD MOY [place] [facility] [place] [facility] Apr 25, 2024 09:02 AM SECONDARY Primary insomnia TODD MOY [place] CNT [facility] [place] [facility] Plan of Treatment: Future Appointments (+ 6 months) and Future Tests (+/- 45 days) The Plan of Treatment section includes future care activities for the [facility] [place] [facility] This section includes future appointments and [...] - MEDICINE [place] [facility] [place] [facility] May 01, 2024 02:45 PM AMBULATORY - MEDICINE DE [facility] [place] [facility] May 02, 2024 02:00 PM AMBULATORY - MEDICINE DE [facility] [place] [facility] May 02, 2024 02:30 PM AMBULATORY - MEDICINE DE [facility] [place] [facility] May 03, 2024 03:00 PM AMBULATORY - MEDICINE DE [facility] [facility] May 10, 2024 03:45 PM AMBULATORY - MEDICINE [place] [facility] [facility] May 17, 2024 01:45 PM AMBULATORY - MEDICINE DE [facility] [facility] May 22, 2024 10:30 AM AMBULATORY - PSYCHIATRY [facility] [place] [facility] May 26, 2024 11:00 AM AMBULATORY - MEDICINE [facility] May 31, 2024 01:00 PM AMBULATORY - MEDICINE [facility] Jun 06, 2024 01:00 PM AMBULATORY - MEDICINE [facility] Jun 13, 2024 01:00 PM AMBULATORY - MEDICINE [facility] Jun 14, 2024 11:00 AM AMBULATORY - MEDICINE [facility] Jun 20, 2024 11:00 AM AMBULATORY - PSYCHIATRY [facility] [facility] Jun 20, 2024 01:00 PM AMBULATORY - MEDICINE [facility] Jun 27, 2024 01:00 PM AMBULATORY - MEDICINE [facility] Jul 04, 2024 01:00 PM AMBULATORY - MEDICINE [facility] Jul 05, 2024 01:00 PM AMBULATORY - MEDICINE [facility] Jul 10, 2024 08:30 AM AMBULATORY - MEDICINE [facility] Jul 11, 2024 03:00 PM AMBULATORY - PSYCHIATRY [facility] [facility] Lab Results: +/- 30 days of [...] Type Comment Apr 05, 2024 09:14 AM [place] [facility] [place] [facility] LIPID PANEL FASTING SERUM Specimen Type: SERUM No comment entered. Ordering Provider: MELBA DOE Report Released Date/Time: Mar 29, 2024 09:37 AM Reporting Lab: [facility] [address] [address] Performing [facility] [address] [address] CHOLESTEROL 167 mg/dL TRIGLYCERIDE 231 mg/dL H 0-150 LDL calculated 80 mg/dL 0-129 CHOL/HDL 4.1 HDL CHOLESTEROL 41 mg/dL 40-60 Apr 05, 2024 09:14 AM [facility] VITAMIN B12 SERUM Specimen Type: SERUM No comment entered. Ordering Provider: MELBA DOE Report Released Date/Time: Mar 29, 2024 09:37 AM Reporting Lab: [facility] [address] [facility] [address] Performing Lab: [facility] [address] [address] VITAMIN B12 500 pg/mL 200-900 Apr 05, 2024 09:14 AM [facility] BASIC METABOLIC PANEL (fasting) SERUM Specime n Type: SERUM No comment entered. Ordering Provider: MELBA DOE Report Released Date/Time: Mar 29, 2024 09:37 AM Reporting Lab: [facility] [address] [facility] [address] Performing Lab: [facility] [address] [facility] [address] UREA NITROGEN 22 mg/dL 7-25 GLUCOSE 128 mg/dL H 65-100 SODIUM 140 mmol/L 135-145 POTASSIUM 4.2 mmol/L 3.5-5.0 CHLORIDE 103 mmol/L 100-110 CO2 26 meq/L 20-30 CREATININE, Serum 1.02 mg/dL 0.50-1.40 eGFR(CKD-EPI 2020) 80 mL/min >60 Apr 05, 2024 09:14 AM [facility] TSH SERUM Specimen Type: SERUM No comment entered. Ordering Provider: MELBA DOE Report Released Date/Time: Mar 29, 2024 09:37 AM Reporting Lab: [facility] [address] [facility] [address] Performing Lab: [address] [address] TSH 1.38 u[IU]/mL 0.35-5.00 Apr 05, 2024 09:14 AM [facility] CBC BLOOD Specimen Type: BLOOD No comment entered. Ordering Provider: MELBA DOE Report Released Date/Time: Mar 29, 2024 09:37 AM Reporting Lab: [facility] [address] [facility] [address] Performing Lab: [facility] [address] [facility] [address] WBC 6.54 10*3/uL 4.50-11.00 RBC 4.83 10*6/uL [...] 04, 2021 02:56 PM VA-TOBACCO NEVER USED [facility] Encounter Notes: All associated encounter notes This section contains the clinical notes associated to the Encounter. Date/Time Encounter Note(s) Provider Source Apr 24, 2024 11:07 AM PRIMARY CARE NURSE PRACTITIONER OUTPATIENT NOTE: LOCAL TITLE: NURSE PRACTITIONER OUTPATIENT NOTE STANDARD TITLE: PRIMARY CARE NURSE PRACTITIONER OUTPATIENT NOTE DATE OF NOTE: APR 24, 2024@11:07 ENTRY DATE: APR 24, 2024@11:09:13 AUTHOR: YANCY MOYIGNER: URGENCY: STATUS: COMPLETED OUTPATIENT MENTAL HEALTH CLINIC: FOLLOW-UP HPI: STAR DOUGHERTY JR, a 68 y/o male Mystic previously diagnosed with Generalized Anxiety Disorder with Panic Attacks presents for [facility] Follow-Up appointment. Last seen by This Provider on 03/28/24 's daughter attended today's assessment via speakerphone, with his permission. 's daughter started today's assessment by complaining about Mystic's lack of response to current pharmacotherapy regimen. I'm not convinced that those meds are the right ones but has little specific feedback about which medications are, or are not, working. Mystic's daughter also insistent in requesting pharmacogenetic testing Mystic and daughter both agree that anxiety and irritability are still the most significant issues. Mystic denies perceptible changes with decrease in QUETIAPINE from 200 to 100 mg. Sparing use of PRN lorazepam is marginally beneficial for breakthrough symptoms. Discussed adding pregabalin to address anxiety. After 's daughter left the assessment noted that pain specialist had recently prescribed buprenorphine but that Mystic's daughter was also opposed to this medication. asked about coadministration with lorazepam and was advised that these medications should be spaced at least 6-8 hours from one another and that Mystic should minimize use of lorazepam until his [...] adhere to treatment plan with pain specialist. explicitly and convincingly denied SI, intent or [...] 05/31/2023November,BERTO P Pain R52., Onset 05/31/2023 MAY,BERTO P Anxiety F41.9, Onset 09/04/2021November,BERTO P Benign prostatic hyperplasia N40.1, 06/16/2023 FURCOADOLFOMELBA ALLERGIES: Data on this list may not be complete. Please check V. FACILITY ALLERGY/ADR -------- No Remote Allergy/ADR Data available for this patient [place] [facility] No Known Allergies MEDICATIONS: reviewed and [...] IMPRESSION: presents as polite, cooperative and treatment motivated. 's daughter was somewhat combative reminded of potential side effects of benzodiazepines, including ataxia, confusion, drowsiness, respiratory depression (especially if combined with other SURGICAL ASSIST depressants such as alcohol or opioid medications), [...] well as common and severe side effects. Mystic comprehended all information discussed, had opportunity to ask questions which were answered to their satisfaction, and voluntarily and without duress agreed to trial as documented. CONTACT AND CRISIS INFO: Mystic informed that This Provider can be contacted at , EXT [phone] or via Secure Messaging. 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
--- OUTSIDE RECORDS SUMMARY | 2024-11-06 17:33 | XMS_ITS | Encounter Summary ---
Author Name [facility] [place] Organization [facility] Address [address] [place] [address] Care Team Providers Care Fish House Worker Name Role Phone BORISMELBA GUADALUPE Primary Care [...] PART B Feb 24, 2020 PART B [id number] STAR DOUGHERTY JR PATIENT MEDICARE (WNR) MEDICARE (M) PART B Feb 24, 2020 PART B [id number] STAR DOUGHERTY JR PATIENT MEDICARE (WNR) MEDICARE (M) PART A November 24, 2019 PART A [id number] [phone] STAR DOUGHERTY JR PATIENT MEDICARE (WNR) MEDICARE (M) PART A November 24, 2019 PART A [id number] STAR DOUGHERTY JR PATIENT OFFICE OF REGIONAL COMMUNITY HEALTH NURSE NO-FAULT INSURANCE NO FAULT May 12, 2022 NO FAULT [id number] DOUGHERTY STAR PATIENT FOR LIFE SUPPLEMEN QI TFL Feb 24, 2020 FOR LIFE [id number] ROSALES DOUGHERTY PATIENT FOR LIFE TFL* Feb 24, 2020 [id number] STAR DOUGHERTY JR PATIENT Selected Encounter [...] PRIMARY Stress, not elsewhere classified ALEXANDER DRAKE [place] [facility] [place] [facility] Plan of Treatment: Future Appointments (+ 6 months) and Future Tests (+/- 45 days) The Plan of Treatment section includes future care activities for the patient from all [place] [facility]. This section includes future appointments and [...] - MEDICINE [place] [facility] [place] [facility] Apr 14, 2024 08:30 AM AMBULATORY - MEDICINE [place] C [facility] [place] [facility] Apr 18, 2024 08:00 AM AMBULATORY - MEDICINE [place] [facility] [place] [facility] Apr 19, 2024 01:00 PM AMBULATORY - MEDICINE [place] [facility] [place] [facility] Apr 24, 2024 11:00 AM AMBULATORY - PSYCHIATRY [place] [facility] [place] [facility] Apr 24, 2024 01:00 PM AMBULATORY - MEDICINE [place] [facility] [place] [facility] Apr 26, 2024 01:00 PM AMBULATORY - MEDICINE [place] [facility] [place] [facility] May 01, 2024 02:45 PM AMBULATORY - MEDICINE [place] [facility] [place] [facility] May 02, 2024 02:00 PM AMBULATORY - MEDICINE [place] [facility] [place] [facility] May 02, 2024 02:30 PM AMBULATORY - MEDICINE [place] [facility] [place] [facility] May 03, 2024 03:00 PM AMBULATORY - MEDICINE [place] [facility] [place] [facility] May 10, 2024 03:45 PM AMBULATORY - MEDICINE [place] [facility] [place] [facility] May 17, 2024 01:45 PM AMBULATORY - MEDICINE [place] [facility] [place] [facility] May 22, 2024 10:30 AM AMBULATORY - PSYCHIATRY [place] [facility] [place] [facility] May 26, 2024 11:00 AM AMBULATORY - MEDICINE [place] [facility] [place] [facility] May 31, 2024 01:00 PM AMBULATORY - MEDICINE [place] [facility] [place] [facility] Jun 06, 2024 01:00 PM AMBULATORY - MEDICINE [place] [facility] [place] [facility] Jun 13, 2024 01:00 PM AMBULATORY - MEDICINE [place] [facility] [place] [facility] Jun 14, 2024 11:00 AM AMBULATORY - MEDICINE [place] [facility] [place] [facility] Jun 20, 2024 11:00 AM AMBULATORY - PSYCHIATRY [place] [facility] [place] [facility] Lab Results: +/- 30 days of [...] Type Comment Apr 05, 2024 09:14 AM [place] [facility] LIPID PANEL FASTING SERUM Specimen Type: SERUM No comment entered. Ordering Provider: MELBA DOE Report Released Date/Time: Mar 29, 2024 09:37 AM Reporting [facility] [address] [facility] [address] Performing Lab: [facility] [address] [address] CHOLESTEROL 167 mg/dL TRIGLYCERIDE 231 mg/dL H 0-150 LDL calculated 80 mg/dL 0-129 CHOL/HDL 4.1 HDL CHOLESTEROL 41 mg/dL 40-60 Apr 05, 2024 09:14 AM [facility] VITAMIN B12 SERUM Specimen Type: SERUM No comment entered. Ordering Provider: MELBA DOE Report Released Date/Time: Mar 29, 2024 09:37 AM Reporting Lab: [facility] [address] [facility] [address] Performing Lab: [facility] [address] [facility] [address] VITAMIN B12 500 pg/mL 200-900 Apr 05, 2024 09:14 AM [facility] BASIC METABOLIC PANEL (fasting) SERUM Specime n Type: SERUM No comment entered. Ordering Provider: MELBA DOE Report Released Date/Time: Mar 29, 2024 09:37 AM Reporting Lab: [facility] [address] [facility] [address] Performing Lab: [facility] [address] [facility] [address] UREA NITROGEN 22 mg/dL 7-25 GLUCOSE 128 mg/dL H 65-100 SODIUM 140 mmol/L 135-145 POTASSIUM 4.2 mmol/L 3.5-5.0 CHLORIDE 103 mmol/L 100-110 CO2 26 meq/L 20-30 CREATININE, Serum 1.02 mg/dL 0.50-1.40 eGFR(CKD-EPI 2020) 80 mL/min >60 Apr 05, 2024 09:14 AM [facility] TSH SERUM Specimen Type: SERUM No comment entered. Ordering Provider: MELBA DOE Report Released Date/Time: Mar 29, 2024 09:37 AM Reporting Lab: [facility] [address] [facility] [address] Performing Lab: [address] [address] TSH 1.38 u[IU]/mL 0.35-5.00 Apr 05, 2024 09:14 AM [facility] CBC BLOOD Specimen Type: BLOOD No comment entered. Ordering Provider: MELBA DOE Report Released Date/Time: Mar 29, 2024 09:37 AM Reporting Lab: [facility] [address] [facility] [address] Performing Lab: [facility] [address] [facility] [address] WBC 6.54 10*3/uL 4.50-11.00 RBC 4.83 10*6/uL [...] 04, 2021 02:56 PM VA-TOBACCO NEVER USED [facility] Encounter Notes: All associated encounter [...] number: Coaching Session #3 Time spent with Glen Ferris: 30-60 minutes Today's coaching session aligns with the 's [place], [place], or Purpose in the following ways: Mental well-being, physical health, family relationships. Glen Ferris was seen for Health and Wellness Coaching [...] energy, motivation, and mood. Short-Term S.M.A.R.T. Goals Glen Ferris's S.M.A.R.T. goal: Recharge In the next 2 months: build consistency with sleep/rest/relaxation time. Reviewed progress on previously set S.M.A.R.T. goal of: Goal 1: Recharge Set alarms on phone 10pm and 7:30am. Begin routine to be in bed no later than 10pm, daily. Prep 15-30 minutes prior. Wake and start day at 7:30am Glen Ferris reports goal was: Partially met Started getting ready for bedtime at 10pm and awaking earlier in the AM. Scheduling appointments reagent tender is helping with motivation. DISCUSSION: Patient was informed of confidentiality policy. [facility] Splicer Operator and Patient reviewed and discussed action step successes, and challenges. Session focused on mindful awareness, values, strengths, and MAP. Patient continuing to focus in area of: Restore. Splicer Operator introduced and reviewed long and short-term S.M.A.R.T. goals. Patient set SMART goals, reviewed and developed action steps. Patient expressed desire to continue building consistency toward desired goals. Splicer Operator provided guidance and assistance with smartening up goals. Patient requested to schedule next Coaching appt. on April @ 9:00am F2F. PLAN: Patient to continue action steps in focus area: Recharge. Build consistency with going to bed each evening by 10:00am and waking by 7am. To begin spending time, daily, in outdoor screen room, sorting puzzle pieces, for relaxation time during the day. Splicer Operator and patient will review action steps, successes, and challenges. Patient to continue building action steps towards desired goals. Visit Plan: Arranged follow-up with : April @ 9:00am Glen Ferris agreed to follow-up by: (F2F) Face to Face Appt. RTC has been placed: patient scheduled /es/ ALEXANDER DRAKE [facility] Splicer Operator Signed: 03/30/2024 14:16 Receipt Acknowledged By: 03/30/2024 15:16 /es/ Massiel Nixon, PhD Clinical Psychologist [facility]
--- OUTSIDE RECORDS SUMMARY | 2024-11-06 17:33 | XMS_ITS | Encounter Summary ---
Author Name [facility] Organization [facility] Address [address] [place] [id number] Care Team Providers Care Mailroom Personnel Name Role Phone MELBA DOE Primary Care [...] PART B Feb 24, 2020 PART B [id number] STAR DOUGHERTY JR PATIENT MEDICARE (WNR) MEDICARE (M) PART B Feb 24, 2020 PART B [id number] STAR DOUGHERTY JR PATIENT MEDICARE (WNR) MEDICARE (M) PART A November 24, 2019 PART A [id number] STAR DOUGHERTY JR PATIENT MEDICARE (WNR) MEDICARE (M) PART A November 24, 2019 PART A [id number] STAR DOUGHERTY JR 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 This section includes future appointments and [...] 20, 2024 11:00 AM AMBULATORY - PS[place]CHIATRY [place] [facility] [place] [facility] Jun 20, 2024 01:00 PM AMBULATORY - MEDICINE [facility] [place] [facility] Jun 27, 2024 01:00 PM AMBULATORY - MEDICINE [place] [facility] [place] [facility] Jul 04, 2024 01:00 PM AMBULATORY - MEDICINE [facility] [place] [facility] Jul 05, 2024 01:00 PM AMBULATORY - MEDICINE [facility] [place] [facility] Jul 10, 2024 08:30 AM AMBULATORY - MEDICINE [facility] [place] [facility] Jul 11, 2024 03:00 PM AMBULATORY - PSYCHIATRY [facility] [place] [facility] Jul 31, 2024 10:30 AM AMBULATORY - NONE [facility] [place] [facility] Aug 01, 2024 01:00 PM AMBULATORY - MEDICINE [facility] [place] [facility] Aug 08, 2024 01:00 PM AMBULATORY - MEDICINE [facility] [place] [facility] Aug 09, 2024 10:30 AM AMBULATORY - PSYCHIATRY [facility] [place] [facility] Aug 15, 2024 10:00 AM AMBULATORY - MEDICINE [facility] [place] [facility] Aug 21, 2024 02:30 PM AMBULATORY - MEDICINE [place] [facility] [place] [facility] Aug 29, 2024 09:30 AM AMBULATORY - MEDICINE [place] [facility] [place] [facility] Aug 30, 2024 01:00 PM AMBULATORY - MEDICINE [facility] [place] [facility] Sep 12, 2024 01:45 PM AMBULATORY - MEDICINE [place] [facility] [place] [facility] Sep 14, 2024 10:30 AM AMBULATORY - PSYCHIATRY [place] [facility] [place] [facility] Sep 14, 2024 11:30 AM AMBULATORY - MEDICINE [place] [facility] [place] [facility] Sep 18, 2024 11:30 AM AMBULATORY - MEDICINE [place] [facility] [place] [facility] Sep 18, 2024 11:31 AM AMBULATORY - MEDICINE [place] [facility] [place] [facility] Lab Results: +/- 30 days [...] Type Comment Jul 04, 2024 07:55 AM [facility] METHADONE SCREEN URINE Specimen Type: URINE Comment: NATO test are qualitative, any L or H flags only indicate a [facility] alert was sent. Ordering Provider: CESAR LOYA Report Released Date/Time: Apr 20, 2024 08:58 AM Reporting Lab: [facility] [address] [facility] [facility] [address] Performing Lab: [facility] [place] [facility] [address] [facility] [address] METHADONE SCREEN None detected(Negative) L Negative Jul 04, 2024 07:55 AM [facility] ALCOHOL, ETHYL URINE PANEL URINE Specimen [...] Apr 20, 2024 08:58 AM Reporting Lab: [address] [address] Performing Lab: [address] [address] ALCOHOL, ETHYL URINE NONE-DETECTED mg/dL NONE-DETECTED, cutoff = 10 mg/dL PH, NATO 5.4 [pH] 4-10 CREATININE, NATO 123.15 mg/dL >20 SP.GRAVITY, NATO 1.026 H 1.003-1.020 Jul 04, 2024 07:55 AM [facility] AMPHETAMINES SCREEN PANEL URINE Specimen Type [...] Apr 20, 2024 08:58 AM Reporting Lab: [address] [address] Performing Lab: [address] [address] AMPHETAMINES SCREEN NONE-DETECTED None-D etected, Cutoff = 1000 ng/mL PH, NATO 5.4 [pH] 4-10 CREATININE, NATO 123.15 mg/dL >20 SP.GRAVITY, NATO 1.026 H 1.003-1.020 Jul 04, 2024 07:55 AM [facility] FENTANYL SCREEN PANEL URINE Specimen Type: [...] Apr 20, 2024 08:58 AM Reporting Lab: [address] [address] Performing Lab: [address] [address] FENTANYL SCREEN NONE-DETECTED ng/mL Nega tive: Cutoff = 1.00 ng/mL PH, NATO 5.4 [pH] 4-10 CREATININE, NATO 123.70 mg/dL >20 SP.GRAVITY, NATO 1.026 H 1.003-1.020 Jul 04, 2024 07:55 AM [facility] BENZODIAZEPINES SCREEN PANEL URINE Specimen T [...] Apr 20, 2024 08:58 AM Reporting Lab: [address] [address] Performing Lab: [address] [address] BENZODIAZEPINES SCREEN NONE-DETECTED Non e-Detected, Cutoff = 200 ng/mL PH, NATO 5.4 [pH] 4-10 CREATININE, NATO 123.15 mg/dL >20 SP.GRAVITY, NATO 1.026 H 1.003-1.020 Jul 04, 2024 07:55 AM [facility] BUPRENORPHINE SCREEN PANEL URINE Specimen Typ [...] Apr 20, 2024 08:58 AM Reporting Lab: [address] [address] Performing Lab: [address] [address] BUPRENORPHINE (URINE) NONE-DETECTED None Detected, Cutoff = 10.0 ng/mL PH, NATO 5.4 [pH] 4-10 CREATININE, NATO 123.15 mg/dL >20 SP.GRAVITY, NATO 1.026 H 1.003-1.020 Jul 04, 2024 07:55 AM [facility] COCAINE SCREEN PANEL URINE Specimen Type: [...] Apr 20, 2024 08:58 AM Reporting Lab: [address] [address] Performing Lab: [address] [address] COCAINE SCREEN NONE-DETECTED None-Detect ed,Cutoff = 300 ng/mL PH, NATO 5.4 [pH] 4-10 CREATININE, NATO 123.15 mg/dL >20 SP.GRAVITY, NATO 1.026 H 1.003-1.020 Jul 04, 2024 07:55 AM [facility] CANNABINOIDS SCREEN PANEL URINE Specimen Type [...] Apr 20, 2024 08:58 AM Reporting Lab: [facility] [address]x[address] [address] Performing Lab: [address] [address] CANNABINOIDS SCREEN NONE-DETECTED None-D etected,Cutoff = 50 ng/mL PH, NATO 5.4 [pH] 4-10 CREATININE, NATO 123.15 mg/dL >20 SP.GRAVITY, NATO 1.026 H 1.003-1.020 Jul 04, 2024 07:55 AM [facility]ENTER[facility] OPIATES SCREEN PANEL URINE Specimen Type: [...] Apr 20, 2024 08:58 AM Reporting Lab: [facility] AnyCloud[address] [address] Performing Lab: [address] [address] OPIATES SCREEN NONE-DETECTED None-Detect ed, Cutoff = 300 ng/mL PH, NATO 5.4 [pH] 4-10 CREATININE, NATO 123.15 mg/dL >20 SP.GRAVITY, NATO 1.026 H 1.003-1.020 Jul 04, 2024 07:55 AM [facility] OXYCODONE SCREEN PANEL URINE Specimen Type: [...] Apr 20, 2024 08:58 AM Reporting Lab: [facility] [address] [facility] [address] Performing Lab: [address] [address] OXYCODONE SCREEN NONE-DETECTED None-Dete cted, Cutoff = 100 ng/mL PH, NATO 5.4 [pH] 4-10 CREATININE, NATO 123.15 mg/dL >20 SP.GRAVITY, NATO 1.026 H 1.003-1.020 Jul 04, 2024 07:51 AM [facility] [id number] PGx BLOOD Specimen Type: BLOOD Comment: shipped on manifest [id number] Ordering Provider: YANCY MOY Report Released Date/Time: Apr 24, 2024 12:11 PM Reporting Lab: [facility] [address] [facility] [address] Performing Lab: [facility] [address] [facility] [address] [id number] PGx comment Jul 04, 2024 07:51 AM [facility] LIVER FUNCTION SERUM Specimen Type: SERUM No comment entered. Ordering Provider: MELBA DOE Report Released Date/Time: Jan 06, 2024 03:34 PM Reporting Lab: [facility] [address] [address] Performing Lab: [address] [address] PROTEIN,TOTAL 6.8 g/dL 6.0-8.3 ALBUMIN 4.2 g/dL 3.5-5.0 ALKALINE PHOSPHATASE 84 U/L 40-150 AST 19 U/L 5-34 ALT 27 U/L BILIRUBIN, TOTAL 0.3 mg/dL 0.2-1.2 Jul 04, 2024 07:51 AM [facility] BASIC METABOLIC PANEL (fasting) SERUM Specime n Type: SERUM No comment entered. Ordering Provider: MELBA DOE Report Released Date/Time: Jan 06, 2024 03:34 PM Reporting Lab: [address] [address] Performing Lab: [address] [address] UREA NITROGEN 13 mg/dL 7-25 GLUCOSE 123 mg/dL H 65-100 SODIUM 138 mmol/L 135-145 POTASSIUM 4.7 mmol/L 3.5-5.0 CHLORIDE 103 mmol/L 100-110 CO2 27 meq/L 20-30 CREATININE, Serum 0.93 mg/dL 0.50-1.40 eGFR(CKD-EPI 2020) 89 mL/min >60 Jul 04, 2024 07:51 AM [facility] CBC BLOOD Specimen Type: BLOOD No comment entered. Ordering Provider: MELBA DOE Report Released Date/Time: Jan 06, 2024 03:34 PM Reporting Lab: [address] [address] Performing Lab: [address] [address] WBC 6.85 10*3/uL 4.50-11.00 RBC 4.76 10*6/uL [...] VA-TOBACCO NEVER USED [place] [facility] [place] [facility] Encounter Notes: All associated encounter notes This section contains the clinical notes associated to the Encounter. Date/Time Encounter Note(s) Provider Source Jun 15, 2024 12:40 PM CLERICAL NOTE: LOCAL TITLE: APPOINTMENT NO SHOW STANDARD TITLE: CLERICAL NOTE DATE OF NOTE: JUN 15, 2024@12:40 ENTRY DATE: JUN 15, 2024@12:40:16 AUTHOR: EUSEBIA LAWTON COSIGNER: URGENCY: STATUS: COMPLETED APPOINTMENT NO SHOW Has ADDENDA Patient Name: STAR DOUGHERTY JR Patient SSN: [id number] Date and time of Appointment No show [...] has an appointment next week with this caption writer for [employer], will determine if [...] By: 06/15/2024 15:19 /monisha/ JAIME HERR ADVANCED DISEASE CASE MANAGER 06/15/2024 ADDENDUM STATUS: COMPLETED [place] showed at 1pm today due to writing down the wrong time in his phone. This caption writer was unavailable and Vet acknowledged that it was his error. He will see this caption writer for [employer] and agreed to reschedule his individual visit at that time. FRANNY alerted that Vet's appointment can be noted as a cancel by patient. /monisha/ EUSEBIA LAWTON DPT PHYSICAL THERAPIST Signed: 06/15/2024 17:26 EUSEBIA LAWTON [place] [facility]
--- OUTSIDE RECORDS SUMMARY | 2024-11-06 17:33 | XMS_ITS | Encounter Summary ---
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 NO-FAULT INSURANCE NO FAULT May 12, 2022 NO FAULT [id number] LADONNA COLEMANSTAR PATIENT FOR LIFE SUPPLEMEN QI TFL Feb 24, 2020 FOR LIFE [id number] ROSALES DOUGHERTY PATIENT FOR LIFE TFL* Feb 24, 2020 [id number] STAR DOUGHERTY JR PATIENT Selected Encounter [...] [facility] [place] [facility] Mar 21, 2024 10:30 AM SECONDARY Pain, unspecified FURCOLO,MELBA [facility] [place] [facility] Mar 21, 2024 10:30 AM SECONDARY Radiculopathy, cervical region FURCOLO,MELBA [facility] [place] [facility] Mar 21, 2024 10:30 AM SECONDARY Tinnitus, unspecified ear FURCOLO,MELBA [facility] [place] [facility] Plan of Treatment: Future Appointments (+ 6 months) and Future Tests (+/- 45 days) The Plan of Treatment section includes future care activities for the patient from all [place] treatmentfacilities. This section includes future appointments and [...] - MEDICINE [place] [facility] [place] [facility] Jan 18, 2024 08:00 AM AMBULATORY - MEDICINE [place] [facility] [place] [facility] Jan 19, 2024 08:30 AM AMBULATORY - PSYCHIATRY [place] [facility] [place] [facility] Jan 25, 2024 09:30 AM AMBULATORY - MEDICINE [place] [facility] [place] [facility] Feb 01, 2024 09:30 AM AMBULATORY - MEDICINE [facility] [place] [facility] Feb 02, 2024 11:00 AM AMBULATORY - PSYCHIATRY [facility] [place] [facility] Feb 02, 2024 12:30 PM AMBULATORY - MEDICINE [facility] [place] [facility] Feb 10, 2024 11:15 AM AMBULATORY - REHAB MEDICIN E [facility] [place] [facility] Feb 14, 2024 09:30 AM AMBULATORY - MEDICINE [facility] [place] [facility] Feb 14, 2024 10:00 AM AMBULATORY - MEDICINE [facility] [place] [facility] Mar 01, 2024 09:00 AM AMBULATORY - PSYCHIATRY [facility] [place] [facility] Mar 02, 2024 11:00 AM AMBULATORY - MEDICINE [facility] [place] [facility] Mar 13, 2024 08:00 AM AMBULATORY - MEDICINE [facility] [place] [facility] Mar 15, 2024 10:30 AM AMBULATORY [...] Order LIPID PANEL FASTING BLOOD (SST-SERUM) SP [facility] Jan 06, 2024 12:00 AM Laboratory - Chemistry Order OCCULT BLOOD FIT X1 SCREEN(IN-HOUSE) [facility] Jan 19, 2024 12:00 AM Laboratory - Chemistry Order HEMOGLOBIN A1C PANEL BLOOD (LAV-BLOOD) [facility] Jan 19, 2024 12:00 AM Laboratory - Chemistry Order BASIC METABOLIC PANEL (non-fasting) BLOOD (SST-SERUM) [facility] Jan 19, 2024 12:00 AM Laboratory - Chemistry Order TSH BLOOD (SST-SERUM) [facility] Jan 19, 2024 12:00 AM Laboratory - Chemistry Order LIVER FUNCTION BLOOD (SST-SERUM) [facility] Jan 19, 2024 12:00 AM Laboratory - Chemistry Order CBC AND DIFF (AUTO) BLOOD (LAV-BLOOD) [facility] Jan 19, 2024 12:00 AM Laboratory - [...] 88 136/72 16 97 5 178 26 [facility] Social History: Smoking [...] ENTRY DATE: JAN 06, 2024@15:03:22 AUTHOR: MELBA DOEIGNER: URGENCY: STATUS: COMPLETED STAR DOUGHERTY JR is a 67 year old WHITE MALE who is being seen today in primary care for follow-up. === CARE TEAM === Community Primary Care Provider: PCP: Zena Winter NP- [facility] Specialists: MH: Jose F Still [facility] Specialists: Urology- Dr. 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 Noise exposure, fumes, fuels, oils, smoke reduction system- chemical exposures deployed [place], [place] === HISTORY OF PRESENT ILLNESS === Diarrhea resolved. stopped sertraline and back on fluoxetine- currenlty 60 mg dose. also onbuspirone. doing acupuncture an dchiropracotr. learning deep breathing. still feels anxious- situational- needing second liver transplant === RELEVANT PAST MEDICAL HISTORY === BPH anxiety CAD- 2011 angina, negative cath hyperlipidemia chronic LBP/neck pain from [facility] 2021 === PAST SURGICAL HISTORY === right inguinal hernia repair nasal fx === FAMILY HISTORY === Mother: thyroid cancer, 65 Father: prostate CA age 94 Siblings: 4 sisters- some ETOH daughter- narcolepsy === SOCIAL HISTORY === Background: born [place] in [place], raised throughout - father was in the . is from [place]. 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 PHYSICIAN Signed: 01/06/2024 15:34 MELBA DOE [place] [facility] [place] [facility] Jan 06, 2024 02:38 PM PREVENTIVE [...] down, depressed, or hopeless Not at all /monisha/ SEBAS BLACKMAN LPN License Practical Nurse Signed: 01/06/2024 14:39 SEBAS BLACKMAN [facility]
--- OUTSIDE RECORDS SUMMARY | 2024-11-06 17:33 | XMS_ITS ---
Author Name [facility] [place] ([place] Organization 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 Date/Time Encounter Type Encounter Description Reason Provider Source Oct 03, 2024 01:00 PM SELF CARE MNGMENT TRAINING PAIN CLINIC ICD-10-CM M54.59 Other low back pain MARYAMEUSEBIA STRICKLAND Carlin Encounter Template Text not used by [place] Assessments - Encounter Diagnoses This section includes the primary and secondary diagnoses documented for the Encounter. Date/Time Primary/Secondary Diagnosis Diagnosis Name Provider Source Oct 18, 2024 11:00 AM PRIMARY Other low back pain EUSEBIA LAWTON [place] [facility] [place] [facility] Plan of Treatment: Future Appointments (+ 6 months) and Future Tests (+/- 45 days) The Plan of Treatment section includes future care activities for the patient from all [place] treatmentfacilities. This section includes future appointments and future orders which are active, pending or scheduled. Future Appointments This section includes appointments that were scheduled to occur 6 months from the date of the Encounter, up to a maximum of 20 appointments. The data comes from all [place] treatment facilities. Appointment Date/Time Appointment Type Appointme nt Facility Name Oct 06, 2024 09:00 AM AMBULATORY - PSYCHIATRY [place] [facility] [place] [facility] Oct 06, 2024 10:00 AM AMBULATORY - MEDICINE [place] [facility] [place] [facility] Oct 09, 2024 02:00 PM AMBULATORY - REHAB MEDICIN [facility] [place] [facility] Oct 16, 2024 02:00 PM AMBULATORY - PS[place]CHIATRY [place] [facility] [place] [facility] Oct 18, 2024 01:00 PM AMBULATORY - REHAB MEDICIN E [facility] [place] [facility] Oct 20, 2024 09:00 AM AMBULATORY - PS[place]CHIATRY [place] [facility] [place] [facility] Oct 23, 2024 02:00 PM AMBULATORY - PS[place]CHIATRY [place] [facility] [place] [facility] Oct 27, 2024 10:30 AM AMBULATORY - PS[place]CHIATRY [place] [facility] [place] [facility] Oct 30, 2024 02:00 PM AMBULATORY - PSYCHIATRY [place] [facility] [place] [facility] Nov 09, 2024 01:30 PM AMBULATORY - MEDICINE [place] [facility] [place] [facility] Nov 21, 2024 10:00 AM AMBULATORY - MEDICINE [place] [facility] [place] [facility] November 27, 2024 02:00 PM AMBULATORY - PSYCHIATRY [place] [facility] [place] [facility] December 04, 2024 10:30 AM AMBULATORY - PSYCHIATRY [place] [facility] [place] [facility] December 22, 2024 10:30 AM [facility] [place] [facility] Dec 26, 2024 09:00 AM AMBULATORY - MEDICINE [place] [facility] [place] [facility] Jan 08, 2025 01:00 PM [facility] Active, Pending, and Scheduled Orders [...] Date/Time Test Type Test Details Facility Name Sep 14, 2024 01:14 PM Consult Order REHAB MEDI CINE/NHM OUTPT Cons Technician Inventory Specialist's Choice [facility] Oct 25, 2024 11:49 AM Consult Order TBI OPTOME TRY INPT Cons Technician Inventory Specialist's Choice [facility] Social History: Smoking Status (Most [...] 08:30 AM VA-TOBACCO NEVER U SED CIGARETTES [facility] Tobacco Use History This section includes a history of the smoking, or tobacco-related health factors, that were collected on or before the date of the Encounter. The data comes from the [place] facility where the Encounter took place. Date/Time Smoking Status/Tobacco Use Comment F acility Jul 10, 2024 08:30 AM VA-TOBACCO NEVER U SED OTHER TYPE [facility] [place] [facility] Sep 04, 2021 02:56 PM VA-TOBACCO NEVER USED [facility] [place] [facility] Encounter Notes: All associated encounter notes This section contains the clinical notes associated to the Encounter. Date/Time Encounter Note(s) Provider Source Oct 03, 2024 12:17 PM PHYSICAL THERAPY N OTE: LOCAL TITLE: PHYSICAL THERAPY STANDARD TITLE: PHYSICAL THERAPY NOTE DATE OF NOTE: OCT 03, 2024@12:17 ENTRY DATE: OCT 03, 2024@12:17:58 AUTHOR: EUSEBIA LAWTON EXP COSIGNER: URGENCY: STATUS: COMPLETED Initial Evaluation date: 02/10/2024 Progress Note: 05/17/24 Treatment #: 18 Treatment time: 60 Diagnosis: Other low back [...] (Vitals, surgical precautions etc.) SUBJECTIVE: Ed shares that his pain was a 4/10 this morning. Increased pain after driving, reports this is a consistent faucet for him. Ed also shares that his 's health is declining leading to increased stress at home. He's been meeting with contractors to explore putting in a walk-in shower and bringing his washer/dryer upstairs. Response from previous session: tolerated well, no c/o increased pain Muscle tension ratin/10 Pain, verbal numeric scale 0-10: 6/10 HEP Adherence: []None []1-2x/wk []3-4x/wk []5-6x/wk [x]Daily -- continues to find the supine exercises for his back beneficial -- spends at least 10 minutes, 2x/day performing therex -- using home cervical traction unit, 3-4x/wk; beneficial -- states motivation is barrier to using his cycle -- plans to begin walking more as the weather improves; walked 15 minutes yesterday OBJECTIVE: THERAPEUTIC EXERCISE: MINUTES: 45 Cervical nods w/occipital float support Cervical rotation w/overpressure -cues DB'ing Cervical retraction H/L diaphragmatic breathing TrA iso, 5s holds H/L pelvic tilts Lower trunk rotation Glute iso, 5s H/L thoracic rotation w/lower trunk rotation A/AROM supine, shoulder flexion MANUAL THERAPY: MINUTES: GAIT TRAINING: MINUTES: NEUROMUSCULAR EDUCATION: MINUTES: OTHER: MINUTES: MODALITIES: MINUTES: [] Contraindication screen completed prior to modality [] Skin intact pre/post SELF CARE/EDUCATION: MINUTES:15 Reviewed aerobic exercise guidelines, advised re: walking intervals. Cervical home traction - guidance for continued use as tolerated. ED/TRAIN SELF-MGMT NONPHY MINUTES: ASSESSMENT: Ed continues to p/w significant limitations in AROM and increased muscle tension. He identified a number of faucets present and was encouraged to continue applying AMP skills to address these. This typewriter repairer discussed transitioning from individual therapy to group therapy resources within the next 1-2 visits. He plans to ask his family for help setting up [facility]. PLAN: Continue with plan of care and HEP as prescribed. Follow-up next week. Interventions to include: Manual therapy (PRN): stm, MET's, myofascial release Aerobic exercise: continue to encourage, reinforce AMP guidance Therex: gentle progressive core, cervical stabilization, postural therex, diaphragmatic breathing; mindful stretching, self-trigger point release Education: PNE, posture, ergo, bodymechanics, relaxation techniques, graded activity for aerobic exercise Update [facility] HEP as indicated [Access Code: [email or web address]] Patient education was provided for all aspects of care during this clinical encounter. /moinsha/ EUSEBIA LAWTON DPT PHYSICAL THERAPIST Signed: 10/04/2024 22:48 EUSEBIA LAWTON [facility]
--- OUTSIDE RECORDS SUMMARY | 2024-11-06 17:33 | XMS_ITS ---
Author Name [facility] [place] Organization [place] Address [address] [place] [id number] Care Team Providers Care Dietary Manager Name Role Phone MELBA DOE Primary [...] PART B Feb 24, 2020 PART B [id number] STAR DOUGHERTY JR PATIENT MEDICARE (WNR) MEDICARE (M) PART B Feb 24, 2020 PART B [id number] DOUGHERTY TONYLYNNE PATIENT MEDICARE (WNR) MEDICARE (M) PART A November 24, 2019 PART A [id number] STAR DOUGHERTY JR PATIENT MEDICARE (WNR) MEDICARE (M) PART A November 24, 2019 PART A [id number] [phone] [id number] DOUGHERTY STAR COLEMAN PATIENT 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 Date/Time Encounter Type Encounter Description Reason Provider Source Jun 20, 2024 01:00 PM SELF-MGMT EDUC/TRAIN 2-4 PT PAIN CLINIC ICD-10-CM G89.4 Chronic pain syndrome CLARA ORJAS Carlin Encounter Template Text not used by [place] Assessments - Encounter Diagnoses This section includes the primary and secondary diagnoses documented for the Encounter. Date/Time Primary/Secondary Diagnosis Diagnosis Name Provider Source Jun 20, 2024 03:46 PM PRIMARY Chronic pain syndrome CLARA ROJAS [place] [facility] [place] [facility] Plan of Treatment: Future Appointments (+ 6 months) and Future Tests (+/- 45 days) The Plan of Treatment section includes [facility] care [facility] the [facility] [place] [facility] This section includes future [...] - MEDICINE [place] [facility] [place] [facility] Jul 04, 2024 01:00 PM AMBULATORY - MEDICINE [facility] [place] [facility] Jul 05, 2024 01:00 PM AMBULATORY - MEDICINE [place] [facility] [facility] Jul 10, 2024 08:30 AM AMBULATORY - MEDICINE [place] [facility] [place] [facility] Jul 11, 2024 03:00 PM AMBULATORY - PSYCHIATRY [place] [facility] [place] [facility] Jul 31, 2024 10:30 AM AMBULATORY - NONE [place] [facility] [place] [facility] Aug 01, 2024 01:00 PM AMBULATORY - MEDICINE [place] [facility] [place] [facility] Aug 08, 2024 01:00 PM AMBULATORY - MEDICINE [place] [facility] [place] [facility] Aug 09, 2024 10:30 AM AMBULATORY - PSYCHIATRY [facility] [place] [facility] Aug 15, 2024 10:00 AM AMBULATORY - MEDICINE [facility] [place] [facility] Aug 21, 2024 02:30 PM AMBULATORY - MEDICINE [facility] [place] [facility] Aug 29, 2024 09:30 AM AMBULATORY [facility] MEDICINE [facility] [place] [facility] Aug 30, 2024 01:00 PM AMBULATORY - MEDICINE [place] [facility] [place] [facility] Sep 12, 2024 01:45 PM AMBULATORY - MEDICINE [facility] [place] [facility] Sep 14, 2024 10:30 AM AMBULATORY - PSYCHIATRY [facility] [place] [facility] Sep 14, 2024 11:30 AM AMBULATORY - MEDICINE [place] [facility] [place] [facility] Sep 18, 2024 11:30 AM AMBULATORY - MEDICINE [place] [facility] [facility] Sep 18, 2024 11:31 AM AMBULATORY - MEDICINE [place] [facility] [place] [facility] Sep 19, 2024 02:30 PM AMBULATORY - MEDICINE [place] [facility] [place] [facility] Sep 22, 2024 09:00 AM AMBULATORY - PSYCHIATRY [facility] [place] [facility] Lab Results: +/- 30 days [...] Type Comment Jul 04, 2024 07:55 AM [place] [facility] [place] [facility] METHADONE SCREEN URINE Specimen Type: URINE Comment: NATO test are qualitative, any L or H flags only indicate a [facility] alert was sent. Ordering Provider: CESAR LOYA Report Released Date/Time: Apr 20, 2024 08:58 AM Reporting Lab: [place] [facility] [facility] [address] [facility] [address] Performing Lab: [facility] [address] [address] METHADONE SCREEN None detected(Negative) L Negative Jul 04, 2024 07:55 AM [facility] ALCOHOL, ETHYL URINE PANEL URINE Specimen Typ [...] Apr 20, 2024 08:58 AM Reporting Lab: [address] [address] Performing Lab: [address] [address] ALCOHOL, ETHYL URINE NONE-DETECTED mg/dL NONE-DETECTED, cutoff = 10 mg/dL PH, NATO 5.4 [pH] 4-10 CREATININE, NATO 123.15 mg/dL >20 SP.GRAVITY, NATO 1.026 H 1.003-1.020 Jul 04, 2024 07:55 AM [facility] FENTANYL SCREEN PANEL URINE Specimen Type: UR [...] Apr 20, 2024 08:58 AM Reporting Lab: [address] [address] Performing Lab: [address] [address] FENTANYL SCREEN NONE-DETECTED ng/mL Nega tive: Cutoff = 1.00 ng/mL PH, NATO 5.4 [pH] 4-10 CREATININE, NATO 123.70 mg/dL >20 SP.GRAVITY, NATO 1.026 H 1.003-1.020 Jul 04, 2024 07:55 AM [facility] AMPHETAMINES SCREEN PANEL URINE Specimen Type : [...] Apr 20, 2024 08:58 AM Reporting Lab: [address] [address] Performing Lab: [address] [address] AMPHETAMINES SCREEN NONE-DETECTED None-D etected, Cutoff = 1000 ng/mL PH, NATO 5.4 [pH] 4-10 CREATININE, NATO 123.15 mg/dL >20 SP.GRAVITY, NATO 1.026 H 1.003-1.020 Jul 04, 2024 07:55 AM [facility] BENZODIAZEPINES SCREEN PANEL URINE Specimen T ype: [...] Apr 20, 2024 08:58 AM Reporting Lab: [address] [address] Performing Lab: [address] [address] BENZODIAZEPINES SCREEN NONE-DETECTED Non e-Detected, Cutoff = 200 ng/mL PH, NATO 5.4 [pH] 4-10 CREATININE, NATO 123.15 mg/dL >20 SP.GRAVITY, NATO 1.026 H 1.003-1.020 Jul 04, 2024 07:55 AM [facility] BUPRENORPHINE SCREEN PANEL URINE Specimen Typ e: [...] Apr 20, 2024 08:58 AM Reporting Lab: [address] [address] Performing Lab: [address] [address] BUPRENORPHINE (URINE) NONE-DETECTED None Detected, Cutoff = 10.0 ng/mL PH, NATO 5.4 [pH] 4-10 CREATININE, NATO 123.15 mg/dL >20 SP.GRAVITY, NATO 1.026 H 1.003-1.020 Jul 04, 2024 07:55 AM [facility] COCAINE SCREEN PANEL URINE Specimen Type: URI [...] Apr 20, 2024 08:58 AM Reporting Lab: [address] [address] Performing Lab: [address] [address] COCAINE SCREEN NONE-DETECTED None-Detect ed,Cutoff = 300 ng/mL PH, NATO 5.4 [pH] 4-10 CREATININE, NATO 123.15 mg/dL >20 SP.GRAVITY, NATO 1.026 H 1.003-1.020 Jul 04, 2024 07:55 AM [place] [facility] CANNABINOIDS SCREEN PANEL URINE Specimen Type [...] Apr 20, 2024 08:58 AM Reporting Lab: [facility] [address] [address] Performing Lab: [address] [address] CANNABINOIDS SCREEN NONE-DETECTED None-D etected,Cutoff = 50 ng/mL PH, NATO 5.4 [pH] 4-10 CREATININE, NATO 123.15 mg/dL >20 SP.GRAVITY, NATO 1.026 H 1.003-1.020 Jul 04, 2024 07:55 AM [facility] OPI[facility] S[facility] PANEL URINE Specimen Type: [...] Apr 20, 2024 08:58 AM Reporting Lab: [facility] APR[address] [address] Performing Lab: [address] [address] OPIATES SCREEN NONE-DETECTED None-Detect ed, Cutoff = 300 ng/mL PH, NATO 5.4 [pH] 4-10 CREATININE, NATO 123.15 mg/dL >20 SP.GRAVITY, NATO 1.026 H 1.003-1.020 Jul 04, 2024 07:55 AM [facility] OXYCODONE SCREEN PANEL URINE Specimen Type: U [...] Apr 20, 2024 08:58 AM Reporting Lab: [address] [address] Performing Lab: [address] [address] OXYCODONE SCREEN NONE-DETECTED None-Dete cted, Cutoff = 100 ng/mL PH, NATO 5.4 [pH] 4-10 CREATININE, NATO 123.15 mg/dL >20 SP.GRAVITY, NATO 1.026 H 1.003-1.020 Jul 04, 2024 07:51 AM [facility] [id number] PGx BLOOD Specimen Type: BLOOD Comment: shipped on manifest [id number] Ordering Provider: YANCY MOY Report Released Date/Time: Apr 24, 2024 12:11 PM Reporting Lab: [facility] [address] [facility] [address] Performing Lab: [facility] [address] [address] [id number] PGx comment Jul 04, 2024 07:51 AM [facility] LIVER FUNCTION SERUM Specimen Type: SERUM No comment entered. Ordering Provider: MELBA DOE Report Released Date/Time: Jan 06, 2024 03:34 PM Reporting Lab: [facility] [address] [facility] [address] Performing Lab: [facility] [address] [facility] [address] PROTEIN,TOTAL 6.8 g/dL 6.0-8.3 ALBUMIN 4.2 g/dL 3.5-5.0 ALKALINE PHOSPHATASE 84 U/L 40-150 AST 19 U/L 5-34 ALT 27 U/L BILIRUBIN, TOTAL 0.3 mg/dL 0.2-1.2 Jul 04, 2024 07:51 AM [facility] BASIC METABOLIC PANEL (fasting) SERUM Specime n Type: SERUM No comment entered. Ordering Provider: MELBA DOE Report Released Date/Time: Jan 06, 2024 03:34 PM Reporting Lab: [facility] [address] [facility] [address] Performing Lab: [facility] [address] [facility] [address] UREA NITROGEN 13 mg/dL 7-25 GLUCOSE 123 mg/dL H 65-100 SODIUM 138 mmol/L 135-145 POTASSIUM 4.7 mmol/L 3.5-5.0 CHLORIDE 103 mmol/L 100-110 CO2 27 meq/L 20-30 CREATININE, Serum 0.93 mg/dL 0.50-1.40 eGFR(CKD-EPI 2020) 89 mL/min >60 Jul 04, 2024 07:51 AM [facility] CBC BLOOD Specimen Type: BLOOD No comment entered. Ordering Provider: MELBA DOE Report Released Date/Time: Jan 06, 2024 03:34 PM Reporting Lab: [facility] [address] [facility] [address] Performing Lab: [address] [address] WBC 6.85 10*3/uL 4.50-11.00 RBC 4.76 10*6/uL [...] NEVER USED [facility] [place] [facility] Encounter Notes: All associated encounter [...] participant. Prior to the AMP program this [place] confirmed their willingness and interest in participating [...] limitations to individualization of care during sessions. [place] informed that individualized breakout sessions can be provided as deemed necessary by the AMP provider or as requested by the . ======== Number of Veterans in attendance for [...] also presented in this session, including a [id number] process to help drain the tubs with this skill. Participants engaged in a mindful stretching practice and the TZ was used to assess their experience. Session ended with a review of take-home points and home practice expectations, including assigned worksheets. ======== Plan: to follow up for session 4 of the AMP program. Further details regarding this session can be found in the attached notes for each discipline. /es/ CLARA ROJAS, PH.D. CLINICAL HEALTH PSYCHOLOGIST Signed: 06/20/2024 15:46 06/20/2024 ADDENDUM STATUS: COMPLETED Active Behavioral Health Session Note AMP Interdisciplinary Group Session: 3 ======== Please see the session summary portion of [facility] Interdisciplinary Parent Note for details describing the content, strategies, and skills taught during today session. Assessment/Plan: [No] Did the [place] confirm completion (showed worksheets, returned, or verbally) of the home practice work sheets from the previous session? If applicable, please describe the barriers the communicated to completing the previous sessions worksheets: Appointments [Yes] was an active participant and provided relevant and on topic contributions during today session. [Yes] The suicide and homicide risk were determined to be low for this during today session. [Yes] No other acute psychological distress was observed for this [place] during today session. [Yes] Continue with AMP upcoming treatment sessions. [ ] Additional actions/recommendations are needed for this participating : /es/ CLARA ROJAS, PH.D. CLINICAL HEALTH PSYCHOLOGIST Signed: 06/20/2024 15:50 06/20/2024 ADDENDUM STATUS: COMPLETED Physical Therapy Note AMP Interdisciplinary Group Session: 3 ======== Please see the session summary portion of [facility] Interdisciplinary Note for details describing the content, strategies, and skills taught during today session. Assessment/Plan: [NO] Did the [place] require any suggestions for modifications from the AMP PT to specific skills/strategies performed as part of their home practice since last session? If yes, please describe: [NO] Did specific issues of concern or barriers to participation regarding this [place] come up during todays session? If yes, [...] THERAPIST Signed: 06/20/2024 23:13 CLARA ROJAS [facility]
--- OUTSIDE RECORDS SUMMARY | 2024-11-06 17:33 | XMS_ITS ---
Author Name [facility] [place] Organization [facility] [place] Address [address] [place] [id number] Care Team Providers Care Baker Second Name Role Phone NADERMELBA Primary Care Provider [...] PART B Feb 24, 2020 PART B [id number] [phone] STAR DOUGHERTY JR PATIENT MEDICARE (WNR) MEDICARE (M) PART B Feb 24, 2020 PART B [id number] STAR DOUGHERTY JR PATIENT MEDICARE (WNR) MEDICARE (M) PART A November 24, 2019 PART A [id number] STAR DOUGHERTY JR PATIENT MEDICARE (WNR) MEDICARE (M) PART A November 24, 2019 PART A [id number] [phone] [id number] STAR DOUGHERTY JR 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 Date/Time Encounter Type Encounter Description Reason Provider Source Oct 18, 2024 01:00 PM SELF CARE MNGMENT TRAINING PAIN CLINIC ICD-10-CM M54.59 Other low back pain LEIGHANNEUSEBIA Carlin Encounter Template Text not used by [place] Assessments - Encounter Diagnoses This section includes the primary and secondary diagnoses documented for the Encounter. Date/Time Primary/Secondary Diagnosis Diagnosis Name Provider Source Oct 18, 2024 10:28 PM PRIMARY Other low back pain MARYAMJEOVANNY STRICKLANDEUSEBIA [place] [facility] [place] [facility] Plan [...] Type Appointme nt Facility Name Oct 20, 2024 09:00 AM AMBULATORY - [place] [facility] [place] [facility] Oct 23, 2024 02:00 PM AMBULATORY [place]RY [place] [facility] [facility] Oct 27, 2024 10:30 AM AMBULATORY [facility]RY [place] [facility] [place] [facility] Oct 30, 2024 02:00 PM AMBULATORY - PS[facility]CHIATRY [facility] [place] [facility] Nov 09, 2024 01:30 PM AMBULATORY - [place]ICINE [place] [facility] Nov 21, 2024 10:00 AM AMBULATORY [place]IC[place] [facility] November 27, 2024 02:00 PM AMBULATORY - PS[facility]CHIATRY [facility] [place] [facility] December 04, 2024 10:30 AM AMBULATORY - PSYCHIATRY [facility] [place] [facility] December 22, 2024 10:30 AM AMBULATORY - NONE [place] [facility] [place] [facility] Dec 26, 2024 09:00 AM [facility] [place] [facility] [place] [facility] Jan 08, 2025 01:00 PM [place] [facility] Active, Pending, and Scheduled Orders This [...] Consult Order REHAB MEDI CINE/NHM OUTPT Cons Miter [facility] Oct 25, 2024 11:49 AM Consult Order TBI OPTOME TRY INPT Cons Miter Cutter's Choice [facility] Social History: Smoking Status (Most [...] 08:30 AM VA-TOBACCO NEVER U SED CIGARETTES [facility] Tobacco Use History This section includes a history of the smoking, or tobacco-related health factors, that were collected on or before the date of the Encounter. The data comes from the [place] facility where the Encounter took place. Date/Time Smoking Status/Tobacco Use Comment F acility Jul 10, 2024 08:30 AM VA-TOBACCO NEVER U SED OTHER TYPE [place] [facility] [place] [facility] Sep 04, 2021 02:56 PM VA-TOBACCO NEVER USED [place] [facility] Encounter Notes: All associated encounter notes This section contains the clinical notes associated to the Encounter. Date/Time Encounter Note(s) Provider Source Oct 18, 2024 12:40 PM PHYSICAL THERAPY D ISCHARGE NOTE: LOCAL TITLE: PHYSICAL THERAPY DISCHARGE NOTE STANDARD TITLE: PHYSICAL THERAPY DISCHARGE NOTE DATE OF NOTE: OCT 18, 2024@12:40 ENTRY DATE: OCT 18, 2024@12:40:15 AUTHOR: EUSEBIA LAWTON EXP COSIGNER: URGENCY: STATUS: COMPLETED Initial Evaluation date: 02/10/2024 Progress Note: 05/17/24 Treatment #: 20 Treatment time: 60 Diagnosis: Other low back [...] (Vitals, surgical precautions etc.) SUBJECTIVE: Ed reports increased muscle tension [place] [facility]. He acknowledges that driving and stress are consistent aggravating factors for his pain. Response from previous session: tolerated well, no c/o increased pain Muscle tension ratin/10 Stress ratin-4/10 Pain, verbal numeric scale 0-10: 6-7/10 HEP Adherence: []None []1-2x/wk []3-4x/wk []5-6x/wk [x]Daily -- spends at least 10 minutes, 2x/day performing therex -- using home cervical traction unit, 3-4x/wk; beneficial -- walking 10-15 minutes, weather permitting OBJECTIVE: [X] Review of Goals: 6. Engage in daily mindful stretching and relaxation strategies [Alpha-Stim, Calm chele, guided relaxation] to reduce muscle tension by 1-2 points on VNS. -MET 7. Trial 1-2 minute intervals of cycling: work up to 10 minutes per day. -AEROBIC activity goal MET, sustained walking x10-15 minutes [X] Obtained ROM measurements last session, please see for details. THERAPEUTIC EXERCISE: MINUTES: 45 Shoulder pulleys -flex, abd, IR, supported chest press to row Cervical retraction w/yellow Cervical ext w/yellow Gentle t-spine rotation, standing Postural correction in standing w/wall for support -cues, comfortable/balanced/ease Reverse shoulder circles Scapular retraction Review of prescribed HEP >> modified based on Vet's feedback MANUAL THERAPY: MINUTES: GAIT TRAINING: MINUTES: NEUROMUSCULAR EDUCATION: MINUTES: OTHER: MINUTES: MODALITIES: MINUTES: [] Contraindication screen completed prior to modality [] Skin intact pre/post SELF CARE/EDUCATION: MINUTES: 15 [x]Self-care strategies: Reviewed toolbox of strategies for anxiety/stress to promote reduction of muscle tension. Vet has A-stim, Tens, and guided relaxation resources via multiple apps (Calm, Mindfulness Part Time Flexible Clerk). [x]Adaptive Equipment: Issued and instructed in safe use of Blue [place] shoulder pulleys for AAROM left shoulder. []Body mechanics/ergonomics [x]PNE: Reinforced importance of engaging in consistent, gentle movement daily to drain the tubs (AMP metaphor). Educated on exercise group for AMP graduates, encouraged Vet to join via [employer]. 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 [x]HEP: HEP updated, encouraged to continue with daily routine. Strongly encouraged to stick with his plan of walking 10-15 min daily, weather permitting. Gradual increase of 1-2 min intervals using his Transformation Zone (AMP tool) to guide him. Access Code: [email or web address] URL: [email or web address] Date: 10/18/2024 Prepared by: [facility] Program Notes GENTLE, EASY BREATHING.TRY NOT TO HOLD YOUR BREATHE.DO THE FIRST 5 EXERCISES EACH MORNING & THEN AGAIN BEFORE BEDTIME. TRY TO ESTABLISH THIS ROUTINE.USE HEAT/ICE/TENS/ALPHA-STIM FOR ANY POST EXERCISE SORENESS Exercises - Supine TrA Bracing - 1 x daily - 7 x weekly - 1 sets - 10 reps - 5 hold - Supine Diaphragmatic Breathing - 1 x daily - 7 x weekly - 1 sets - 10 reps - Supine Lower Trunk Rotation - 1 x daily - 7 x weekly - 15 reps - Trunk/Cervical Rot Opposite LTR - 1 x daily - 7 x weekly - 1 sets - 10 reps - H/L SKTC Stretch - 1 x daily - 7 x weekly - 2 reps - 30 hold - Beginner Bridge - 7 x weekly - 1 sets - 10 reps - Seated Cervical Rotation w/Towel- 1 x daily - 7 x weekly - 3 reps - 10 breaths - Baby Columbia - 1 x daily - 7 x weekly - 3 reps - 10 breaths - Shoulder Shrug Circles Backward - 1 x daily - 7 x weekly - 1 sets - 20 reps - Cervical Retraction w/Resistance - 1 x daily - 7 x weekly - 1 sets - 10 reps - 10 Minute Guided Meditation - 1 x daily ED/TRAIN SELF-MGMT NONPHY MINUTES: ASSESSMENT: Ed has participated in an extended course of PT care since his initial meeting with the IPT in the spring. Initial treatment focused on his low back and he reports a fair improvement in this region with minimal complaints of discomfort. He is committed to performing his prescribed low back exercises each morning and notes these consistently provide benefit. Ed requested treatment for his upper quarter left-sided neck and shoulder pain once his back pain had subsided. Unfortunately, he has noted no significant improvements in this area. Driving appears to be a primary aggravating factor for his pain, along with anxiety and stress. Ed has recently engaged with mental health more closely (group and individual sessions) and he reports that he's finding this beneficial. PLAN: Ed will continue with his prescribed HEP, self-care, and walking routine. He has been encouraged to join the exercise group for AMP graduates, 2x/wk. He is also invited to consider enrolling in chair yoga. Patient education was provided for all aspects of care during this clinical encounter. /monisha/ EUSEBIA LAWTON DPT PHYSICAL THERAPIST Signed: 10/20/2024 10:41 EUSEBIA LAWTON [place] [facility] [facility]
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
--- OUTSIDE RECORDS SUMMARY | 2024-11-06 17:33 | XMS_ITS | Continuity of Care Document ---
Author Name [facility] Organization [facility] Care Team Providers Care Sheriffs Officer Name Role Phone [facility] Unavailable Unavailable Problems Combined list of problems [...] 10 Code refer to note dated 06/16/23 [facility] Sleep apnea Active Condition Oct 24, 2024 Entered By: GISELLA SHAFER AM Comment: Very mild by home sleep test September 2024; AHI 5.3 [facility] Diagnosis: ICD-10-CM F41.9 Anxiety disorder, unspecified Active Diagnosis [facility] Diagnosis: ICD-10-CM F41.1 Generalized anxiety disorder Active Diagnosis [facility] Diagnosis: ICD-10-CM G47.30 Sleep apnea, unspecified Active Diagnosis [facility] Diagnosis: ICD-10-CM M54.59 Other low back pain Active Diagnosis [facility] Diagnosis: ICD-10-CM M54.2 Cervicalgia Active Diagnosis [facility] Diagnosis: ICD-10-CM R52 Pain, unspecified Active Diagnosis [facility] Diagnosis: ICD-10-CM G89.4 Chronic pain syndrome Active Diagnosis [facility] Diagnosis: ICD-10-CM Z46.0 Encounter for fit/adjst of spectacles and contact lenses Active Diagnosis [facility] Diagnosis: ICD-10-CM H25.13 Age-related nuclear cataract, bilateral Active Diagnosis [facility] Diagnosis: ICD-10-CM Z23 Encounter for immunization Active Diagnosis [facility] Diagnosis: ICD-10-CM M54.12 Radiculopathy, cervical region Active Diagnosis [facility] Diagnosis: ICD-10-CM Z73.3 Stress, not elsewhere classified Active Diagnosis [facility] Diagnosis: ICD-10-CM Z71.89 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ed counseling Active Diagnosis [facility] Diagnosis: ICD-10-CM Z72.3 Lack of physical exercise Active Diagnosis [facility] Diagnosis: ICD-10-CM Z71.9 Counseling, unspecified [...] Essential (primary) hypertension Active Diagnosis [facility] Medications Combined list of [...] DAILY NEEDED FOR PAIN ORAL ACTIVE 04/14/2025 [id number] CECE SHAFERM S 2023 200 [facility] ATORVASTATI N CA 40MG TAB TAKE ONE-HALF TABLET BY MOUTH ONCE DAILY FOR HIGH CHOLESTE ROL ORAL ACTIVE 01/06/2025 [id number] FURCOLO,T MITESH 2023 45 [facility] BISACODYL 5MG TAB,EC TAKE FOUR TABLETS BY MOUTH ONE TIME FOR BOWELS - LAXATIVE ORAL 08/30/2024 [id number] ZABRINA QUIROZ 2024 4 [facility] BUPRENORPHI NE 5MCG/HR PATCH APPLY 1 PATCH TO SKIN EVERY 7 DAYS FOR PAIN (REMOVE PATCH BEFORE APPLYING A NEW PATCH) TRANSD ERMAL DISCONT INUED BY PROVIDE R 10/14/2024 [id number] CECE SHAFER S 2023 4 [facility] BUSPIRONE HCL 10MG TAB TAKE TWO TABLETS BY MOUTH TWICE DAILY ANXIETY ORAL DISCONT INUED (EDIT) 03/02/2025 [id number] 4 YANCY MOY 2023 240 [facility] BUSPIRONE HCL 10MG TAB TAKE ONE TABLET BY MOUTH TWICE DAILY ANXIETY ORAL DISCONT INUED (EDIT) 09/22/2024 [id number] 4 YANCY MOY 2023 120 [facility] BUSPIRONE HCL 10MG TAB TAKE ONE TABLET BY MOUTH ONCE DAILY ORAL DISCONT INUED (EDIT) 08/31/2024 [id number] 4 YANCY MOY 2023 60 [facility] BUSPIRONE HCL 10MG TAB TAKE ONE TABLET BY MOUTH ONCE DAILY ORAL DISCONT INUED 10/12/2023 [id number] 4 FARZANEH YANCY 2023 60 [facility] BUSPIRONE HCL 15MG TAB TAKE ONE TABLET BY MOUTH TWICE DAILY ANXIETY ORAL DISCONT INUED (EDIT) 11/17/2024 [id number] 4 YANCY MOY 2023 120 [facility] BUSPIRONE HCL 30MG TAB TAKE ONE TABLET BY MOUTH TWICE DAILY FOR ANXIETY ORAL ACTIVE 08/10/2025 [id number] 5 FARZANEH YANCY 2024 180 [facility] BUSPIRONE HCL 30MG TAB TAKE ONE TABLET BY MOUTH TWICE DAILY FOR ANXIETY ORAL DISCONT INUED (EDIT) 03/29/2025 [id number] 5 FARZANEH YANCY 2023 60 [facility] CYCLOBENZAP RINE HCL 10MG TAB TAKE ONE TABLET BY MOUTH ONCE DAILY NEEDED FOR MUSCLE SPASM ORAL ACTIVE 05/18/2025 [id number] FURCOLO,T MITESH 2023 90 [facility] CYCLOBENZAP RINE HCL 10MG TAB TAKE ONE TABLET BY MOUTH ONCE DAILY NEEDED FOR MUSCLE SPASM ORAL DISCONT INUED 12/28/2024 [id number] CECE SHAFER LLIAM S 2023 90 [facility] CYCLOBENZAP RINE HCL 10MG TAB TAKE ONE TABLET BY MOUTH ONCE DAILY NEEDED FOR MUSCLE SPASM ORAL DISCONT INUED (EDIT) 11/03/2024 [id number] 4 CECE SHAFER LLIAM S 2023 30 [facility] CYCLOBENZAP RINE HCL 5MG TAB TAKE ONE TABLET BY MOUTH TWICE DAILY NEEDED FOR MUSCLE SPASM ORAL DISCONT INUED (EDIT) 10/01/2024 [id number] 4 [facility] 2023 60 [facility] DICLOFENAC NA 1% GEL,TOP APPLY 2 GRAMS TOPICALL Y FOUR TIMES A DAY FOR OSTEOART HRITIS - USE DOSING CARD PROVIDED IN BOX TOPICA L ACTIVE 09/13/2025 [id number] 5 FURCOLO,T MITESH 2024 100 [facility] DICLOFENAC NA 1% GEL,TOP APPLY 2 GRAMS TOPICALL Y FOUR TIMES A DAY FOR OSTEOART HRITIS - USE DOSING CARD PROVIDED IN BOX TOPICA L DISCONT INUED 01/06/2025 [id number] FURCOLO,T MITESH 2023 100 [facility] FLUOXETINE HCL 20MG CAP TAKE TWO CAPSULES BY MOUTH ONCE DAILY FOR DEPRESSI ON AND ANXIETY ORAL ACTIVE 09/15/2025 [id number] 5 YANCY MOY 2024 180 [facility] FLUOXETINE HCL 20MG CAP TAKE TWO CAPSULES BY MOUTH ONCE DAILY FOR DEPRESSI ON AND ANXIETY ORAL DISCONT INUED (EDIT) 05/23/2025 [id number] 5 YANCY MOY 2023 60 [facility] FLUOXETINE HCL 20MG CAP TAKE THREE CAPSULES BY MOUTH ONCE DAILY FOR DEPRESSI ON AND ANXIETY ORAL DISCONT INUED (EDIT) 01/19/2025 [id number] 4 YANCY MOY 2023 270 [facility] FLUOXETINE HCL 20MG CAP TAKE THREE CAPSULES BY MOUTH ONCE DAILY FOR DEPRESSI ON AND ANXIETY ORAL DISCONT INUED 08/31/2024 [id number] 4 YANCY MOY 2023 180 [facility] FLUOXETINE HCL 20MG CAP TAKE ONE CAPSULE BY MOUTH ONCE DAILY FOR 7 DAYS, THEN TAKE TWO CAPSULES ONCE DAILY FOR DEPRESSI ON AND ANXIETY ORAL DISCONT INUED (EDIT) 10/12/2023 [id number] 4 YANCY MOY 2023 113 [facility] GABAPENTIN 600MG TAB TAKE ONE-HALF TABLET BY MOUTH ONCE DAILY NEEDED ANXIETY- OFF LABEL ORAL DISCONT INUED BY PROVIDE R 11/17/2024 [id number] 4 [facility] MOY 2023 15 [facility] GABAPENTIN 600MG TAB TAKE ONE-HALF TABLET BY MOUTH AT BEDTIME FOR 7 DAYS, THEN TAKE ONE-HALF TABLET TWICE DAILY FOR 7 DAYS, THEN TAKE ONE-HALF TABLET THREE TIMES A DAY ANXIETY ORAL DISCONT INUED (EDIT) 11/19/2023 [id number] 4 FARZANEHYANCY 2023 35 [facility] LIDOCAINE 5% PATCH APPLY 1 PATCH TOPICALL Y ONCE DAILY NEEDED FOR NERVE PAIN (LEAVE PATCH ON FOR 12 HOURS, THEN REMOVE PATCH) TOPICA L ACTIVE 01/06/2025 [id number] FURCOLO,T MITESH 2023 90 [facility] LORAZEPAM 0.5MG TAB TAKE ONE TABLET BY MOUTH ONCE DAILY NEEDED ORAL ACTIVE 11/26/2024 [id number] 5 YANCY MOY 2024 30 [facility] LORAZEPAM 0.5MG TAB TAKE ONE TABLET BY MOUTH ONCE DAILY NEEDED ANXIETY ORAL 09/22/2024 [id number] 5 YANCY MOY 2023 30 [facility] LORAZEPAM 0.5MG TAB TAKE ONE TABLET BY MOUTH ONCE DAILY NEEDED FOR ANXIETY/ PANIC ORAL 03/02/2024 [id number] 4 YANCY MOY 2023 30 [facility] MELOXICAM 15MG TAB TAKE ONE TABLET BY MOUTH ONCE DAILY FOR JOINT INFLAMMA TION (TAKE WITH FOOD) ORAL ACTIVE 09/15/2025 [id number] 5 CECE SHAFER 2024 30 [facility] MELOXICAM 15MG TAB TAKE ONE TABLET BY MOUTH ONCE DAILY FOR JOINT INFLAMMA TION (TAKE WITH FOOD) ORAL DISCONT INUED 04/25/2025 [id number] FURCOLO,T MITESH 2023 30 [facility] MELOXICAM 15MG TAB TAKE ONE TABLET BY MOUTH ONCE DAILY FOR JOINT INFLAMMA TION (TAKE WITH FOOD) ORAL DISCONT INUED 11/03/2024 [id number] CECE SHAFERYUKI Enzo 2023 30 [facility] MIRTAZAPINE 30MG TAB TAKE ONE TABLET BY MOUTH AT BEDTIME FOR DEPRESSI ON/MOOD ORAL ACTIVE 09/15/2025 [id number] 5 YANCY MOY 2024 30 [facility] MIRTAZAPINE 30MG TAB TAKE ONE-HALF TABLET BY MOUTH AT BEDTIME ORAL DISCONT INUED (EDIT) 08/10/2025 [id number] 5 YANCY MOY 2024 7 [facility] MIRTAZAPINE 30MG TAB TAKE ONE TABLET BY MOUTH AT BEDTIME SLEEP ORAL DISCONT INUED (EDIT) 07/12/2025 [id number] 4 YANCY MOY 2023 30 [facility] MIRTAZAPINE 30MG TAB TAKE ONE-HALF TABLET BY MOUTH AT BEDTIME SLEEP FOR DEPRESSI ON/MOOD ORAL DISCONT INUED (EDIT) 06/21/2025 [id number] 4 YANCY MOY 2023 15 [facility] POLYETHYLEN E GLYCOL 3350 PWDR,ORAL TAKE CONTENTS OF BOTTLE BY MOUTH ONCE DIRECTED [MIX WITH 4 TO 8OZ. OF BEVERAGE ] ORAL 08/30/2024 [id number] ZABRINA QUIROZ YNA 2024 238 [facility] PREGABALIN 100MG CAP,ORAL TAKE ONE CAPSULE BY MOUTH TWICE DAILY FOR ANXIETY ORAL DISCONT INUED BY PROVIDE R 12/21/2024 [id number] YANCY MOY 2023 60 [facility] PREGABALIN 50MG CAP,ORAL TAKE ONE CAPSULE BY MOUTH TWICE DAILY NEEDED FOR ANXIETY ORAL DISCONT INUED (EDIT) 11/22/2024 [id number] 4 FARZANEH YANCY 2023 60 [facility] QUETIAPINE FUMARATE 100MG TAB TAKE ONE TABLET BY MOUTH AT BEDTIME ANXIETY AND SLEEP (OFF LABEL) ORAL DISCONT INUED BY PROVIDE R 03/29/2025 [id number] 4 FARZANEH, YANCY 2023 30 [facility] QUETIAPINE FUMARATE 100MG TAB TAKE ONE TABLET BY MOUTH AT BEDTIME ANXIETY AND SLEEP (OFF LABEL) ORAL DISCONT INUED (EDIT) 01/19/2025 [id number] FARZANEH, YANCY 2023 30 [facility] QUETIAPINE FUMARATE 200MG TAB TAKE ONE TABLET BY MOUTH AT BEDTIME ANXIETY AND SLEEP (OFF LABEL) ORAL DISCONT INUED (EDIT) 03/02/2025 [id number] 4 FARZANEH YACNY 2023 30 [facility] QUETIAPINE FUMARATE 25MG TAB TAKE ONE TABLET BY MOUTH AT BEDTIME ORAL DISCONT INUED (EDIT) 02/13/2024 [id number] FARZANEH YANCY 2023 30 [facility] QUETIAPINE FUMARATE 25MG TAB TAKE ONE TABLET BY MOUTH AT BEDTIME FOR 7 DAYS, THEN TAKE TWO TABLETS AT BEDTIME ANXIETY- OFF LABEL ORAL DISCONT INUED BY PROVIDE R 12/27/2023 [id number] 4 FARZANEHYANCY 2023 73 [facility] QUETIAPINE FUMARATE 50MG TAB TAKE THREE TABLETS BY MOUTH AT BEDTIME ANXIETY AND SLEEP (OFF LABEL) ORAL DISCONT INUED (EDIT) 02/02/2025 [id number] YANCY MOY 2023 90 [facility] Immunizations Combined list of available immunizations from the Department of Defense and Veterans Affairs facilities. Immunization Series Date Given Administered By Site Reaction Lot Number CVX Code Drug Run Lead Status Comments Source COVID-19 (MODERNA), MRNA, LNP-S, PF, 50 MCG/0.5 ML (AGES 12+ YEARS) 2023 ASYA ROCHA LEFT DELTO ID [id number] complet ed [facility] INFLUENZA, HIGH-DOSE, TRIVALENT, PF 2023 RAMONE ABDALLA RIGHT DELTO ID [id number] 135 complet ed [facility] INFLUENZA, UNSPECIFIED FORMULATION 2022 88 complet ed HISTORICA L INFORMATI ON - [facility] INFLUENZA VACCINE, QUADRIVALENT, ADJUVANTED 2021 205 complet ed [facility] INFLUENZA, UNSPECIFIED FORMULATION 2020 88 complet ed [facility] INFLUENZA, INJECTABLE, QUADRIVALENT, PRESERVATIVE FREE 2017 150 complet ed 02, Partner: [facility]. Administe red by: [facility] Clinician (NPI=Not Provided) . Partner 6 Lot#: [id number] Mfr: GlaxoSmit hKline [facility] ZOSTER LIVE 2011 121 complet ed HISTORICA L INFORMATI ON - FROM OTHER REGISTRY, [facility] Results Combined list of recent chemistry, hematology [...] [facility] [address] [facility] [address] Performing Lab[facility] [address] [address] [facility] ALCOHOL, ETHYL URINE PANEL ETHANOL [MASS/VOLUM E] [...] Apr 20, 2024 08:58 AM Reporting Lab: [address] [address] Performing Lab: [address] [address] [facility] ALCOHOL, ETHYL URINE PANEL PH OF URINE [...] Apr 20, 2024 08:58 AM Reporting Lab: [address] [address] Performing Lab: [address] [address] [facility] ALCOHOL, ETHYL URINE PANEL CREATININE [MASS/VOLUM [...] Apr 20, 2024 08:58 AM Reporting Lab: [facility] [address] [address] Performing Lab: [facility] [address] [address] [facility] ALCOHOL, ETHYL URINE PANEL SPECIFIC [...] Apr 20, 2024 08:58 AM Reporting Lab: [facility] [address] Performing Lab: [facility] [address] [address] [facility] AMPHETAMI GLORIA SCREEN PANEL AMPHETAMINE S [PRESENCE] [...] Apr 20, 2024 08:58 AM Reporting Lab: [facility] [place] [address] [address] Performing Lab: [facility] [place] [address] [address] [facility] AMPHETAMI GLORIA SCREEN PANEL PH OF URINE [...] Apr 20, 2024 08:58 AM Reporting Lab: [facility] [address] Performing Lab: [facility] [address] [address] [facility] AMPHETAMI GLORIA SCREEN PANEL CREATININE [MASS/VOLUM E] [...] Apr 20, 2024 08:58 AM Reporting Lab: [facility] [place] [address] [address] Performing Lab: [facility] [address] [facility]ITALUSE [facility] AMPHETAMI GLORIA SCREEN PANEL SPECIFIC GRAVITY OF [...] Apr 20, 2024 08:58 AM Reporting Lab: [address] [address] Performing Lab: [address] [address] [facility] BENZODIAZ EPINES SCREEN PANEL BENZODIAZEP MICA [PRESENCE] [...] Apr 20, 2024 08:58 AM Reporting Lab: [address] [address] Performing Lab: [address] [address] [facility] BENZODIAZ EPINES SCREEN PANEL PH OF URINE [...] Apr 20, 2024 08:58 AM Reporting Lab: [facility] [place] [address] [address] Performing Lab: [facility] [address] [address] [facility] BENZODIAZ EPINES SCREEN PANEL CREATININE [MASS/VOLUM E] [...] Apr 20, 2024 08:58 AM Reporting Lab: [facility] [place] [address] [address] Performing Lab: [facility] [address] [facility] BENZODIAZ EPINES SCREEN PANEL SPECIFIC [...] Apr 20, 2024 08:58 AM Reporting Lab: [facility]TRN [facility]ITAL[facility] [address] [address] Performing Lab: [facility] [address] [address] [facility] FENTANYL SCREEN PANEL FENTANYL [PRESENCE] IN [...] Apr 20, 2024 08:58 AM Reporting Lab: [address] [address] Performing Lab: [address] [address] [facility] FENTANYL SCREEN PANEL PH OF URINE 5.4 [...] Apr 20, 2024 08:58 AM Reporting Lab: [address] [address] Performing Lab: [address] [address] [facility] FENTANYL SCREEN PANEL CREATININE [MASS/VOLUM E] IN [...] Reporting Lab: [facility] [address] Performing Lab: [address] [address] [facility] FENTANYL SCREEN PANEL SPECIFIC GRAVITY OF URINE [...] Apr 20, 2024 08:58 AM Reporting Lab: [address] [address] Performing Lab: [address] [address] [facility] BUPRENORP SABINE SCREEN PANEL BUPRENORPHI NE [...] Apr 20, 2024 08:58 AM Reporting Lab: [facility] [place] [facility] [address] [facility] [address] Performing Lab: [facility] [place] [address] [address] [facility] [place] [facility] BUPRENORP SABINE SCREEN PANEL PH OF [...] Apr 20, 2024 08:58 AM Reporting Lab: [facility] [place] [address] [address] Performing Lab: [facility] [place] [address] [address] [facility] [place] [facility] BUPRENORP SABINE SCREEN PANEL CREATININE [MASS/VOLUM [...] Apr 20, 2024 08:58 AM Reporting Lab: [facility] [place] [address] [address] Performing Lab: [facility] [place] [address] [address] [facility] BUPRENORP SABINE SCREEN PANEL SPECIFIC GRAVITY OF [...] Apr 20, 2024 08:58 AM Reporting Lab: [address] [address] Performing Lab: [address] [address] [facility] CANNABINO IDS SCREEN PANEL CANNABINOID S [PRESENCE] [...] Apr 20, 2024 08:58 AM Reporting Lab: [facility] [employer] [address] Performing Lab: [address] [address] [facility] CANNABINO IDS SCREEN PANEL PH OF URINE [...] Apr 20, 2024 08:58 AM Reporting Lab: [facility] [address] [address] Performing Lab: [facility] [place] [address] [address] [facility] CANNABINO IDS SCREEN PANEL CREATININE [...] Apr 20, 2024 08:58 AM Reporting Lab: [facility]TRN [facility] [address] Performing Lab: [facility] [address] [facility]ITALUSE [facility] CANNABINO IDS SCREEN PANEL SPECIFIC [...] Apr 20, 2024 08:58 AM Reporting Lab: [facility] [address] [address] Performing Lab: [address] [address] [facility] COCAINE SCREEN PANEL COCAINE [PRESENCE] IN [...] Apr 20, 2024 08:58 AM Reporting Lab: [address] [address] Performing Lab: [address] [address] [facility] COCAINE SCREEN PANEL PH OF URINE 5.4 [...] Apr 20, 2024 08:58 AM Reporting Lab: [address] [address] Performing Lab: [address] [address] [facility] COCAINE SCREEN PANEL CREATININE [MASS/VOLUM E] IN [...] Apr 20, 2024 08:58 AM Reporting Lab: [facility] [address] Performing Lab: [address] [address] [facility] COCAINE SCREEN PANEL SPECIFIC GRAVITY OF URINE [...] Apr 20, 2024 08:58 AM Reporting Lab: [address] [address] Performing Lab: [address] [address] [facility] OPIATES SCREEN PANEL OPIATES [PRESENCE] IN URINE [...] Apr 20, 2024 08:58 AM Reporting Lab: [facility] [place] [address] [address] Performing Lab: [facility] [place] [facility] [address] [facility] [facility] [address] [facility] TRN [facility] OPIATES SCREEN PANEL PH OF URINE 5.4 [...] Apr 20, 2024 08:58 AM Reporting Lab: [facility] [place] [address] [address] Performing Lab: [facility] [place] [address] [address] [facility] OPIATES SCREEN PANEL CREATININE [MASS/VOLUM E] IN [...] Apr 20, 2024 08:58 AM Reporting Lab: [facility] [place] [address] [address] Performing Lab: [facility] [address] [facility] OPIATES SCREEN PANEL SPECIFIC GRAVITY OF URINE [...] Apr 20, 2024 08:58 AM Reporting Lab: [facility] Studio[address] [address] Performing Lab: [facility] [address] [facility] OXYCODONE SCREEN PANEL OXYCODONE [PRESENCE] IN URINE [...] Apr 20, 2024 08:58 AM Reporting [facility]apsUSE[address] [address] Performing Lab: [facility] [address] [facility] OXYCODONE SCREEN PANEL PH OF URINE [...] Apr 20, 2024 08:58 AM Reporting Lab: [facility] [place] [facility] [address] [facility] [address] Performing Lab: [facility] [place] [address] [address] [facility] [place] [facility] OXYCODONE SCREEN PANEL CREATININE [MASS/VOLUM E] IN [...] Apr 20, 2024 08:58 AM Reporting Lab: [facility] [place] [address] [address] Performing Lab: [facility] [address] [address] [facility] TS [facility] OXYCODONE SCREEN PANEL SPECIFIC GRAVITY OF [...] Apr 20, 2024 08:58 AM Reporting Lab: [facility] [place] [address] [address] [facility]forming [facility]: [facility] [place] [facility] [address] [facility] [address] [facility] [place] [facility] Vital Signs Combined list of inpatient and outpatient Vital Signs from Department of Defense and Veterans Affairs, ranging from 12 months to all on record, depending upon the facility. Vital Sign Value Date Comments Source SYSTOLIC BLOOD PRESSURE 147 07/10/20 24 08:26:05 [facility] [place] [facility] DIASTOLIC BLOOD PRESSURE 77 024 08:26:05 [facility] [place] [facility] PULSE OXIMETRY 99 07/10/2024 08:26:05 [facility] [place] [facility] WEIGHT 185 07/10/2024 08:26:05 [facility] [place] [facility] BMI 27 kg/m2 07/10/2024 08:26:05 [facility] PAIN 7 07/10/2024 08:26:05 [facility] TEMPERATURE 97.9 07/10/2024 08:26:05 [facility] PULSE 80 07/10/2024 08:26:05 [facility] RESPIRATION 16 07/10/2024 08:26:05 [facility] SYSTOLIC BLOOD PRESSURE 136 03/29/20 24 08:58:47 [facility] DIASTOLIC BLOOD PRESSURE 78 024 08:58:47 [facility] PULSE OXIMETRY 98 03/29/2024 08:58:47 [facility] WEIGHT 183 03/29/2024 08:58:47 [facility] BMI 27 kg/m2 03/29/2024 08:58:47 [facility] PAIN 6 03/29/2024 08:58:47 [facility] TEMPERATURE 97.5 03/29/2024 08:58:47 [facility] PULSE 69 03/29/2024 08:58:47 [facility] RESPIRATION 16 03/29/2024 08:58:47 [facility] SYSTOLIC BLOOD PRESSURE 163 03/22/20 24 12:13:43 [facility] DIASTOLIC BLOOD PRESSURE 52 03/22/ 024 12:13:43 [facility] [...] 14:31:36 [facility] BMI 26 kg/m2 01/06/2024 14:31:36 [facility] [...] [facility] going backup to the last 18 months, not all VA inpatient encounters are included; 2) Encounters from the [facility] facilities going backup to 280 months. Location Location Details Encounter Type Encounter Number Reason For Visit Attending Provider ADM Date DC Date Status Disposition Source [facility] MOST RCT BP </= 140/90 [id number] Diagnos is: ICD-10- CM I10 Essenti al (primar y) hyperte nsion CHIKARMEN,TI MOTHY E 05/31 [facility] Outpatient Encounter [id number] 06/02 [facility] OFFICE O/P NEW HI 60-74 MIN [id number] Diagnos is: ICD-10- CM H93.19 Tinnitu s, unspeci fied ear FURCOLO,TI NA 06/16 [facility] Outpatient Encounter [id number] 06/23 [facility] Outpatient Encounter [id number] 07/01 [facility] PSYCH DIAGNOSTIC EVALUATION [id number] Diagnos is: ICD-10- CM F41.9 Anxiety disorde r, unspeci fied COOKTIMA ON A 07/05 [facility] OFFICE O/P EST HI 40-54 MIN [id number] Diagnos is: ICD-10- CM F41.1 General ized anxiety disorde Chapito Sutton YAIR 07/09 [facility] OFF/OP EST MAY X REQ PHY/QHP [id number] Diagnos is: ICD-10- CM R19.7 Diarrhe a, unspeci fied CHILSON,TI MOTHY E 08/02 [facility] OFFICE O/P EST MOD 30 MIN [id number] Diagnos is: ICD-10- CM R19.7 Diarrhe a, unspeci fied FURCOLO,TI NA 08/02 [facility] Outpatient Encounter [id number] 08/06 [facility] Outpatient Encounter [id number] 08/10 [facility] OFF/OP CONSLTJ NEW/EST HI 55 [id number] Diagnos is: ICD-10- CM R52 Pain, unspeci fied CUTLER,ELIER WILLY S 08/10 [facility] Outpatient Encounter [id number] Diagnos is: ICD-10- CM R52 Pain, unspeci fied CUTLER,ELIER WILLY S 08/12 [facility] OFFICE O/P EST MOD 30 MIN [id number] Diagnos is: ICD-10- CM F41.1 General ized anxiety disorde r Chapito MOY 08/13 [facility] Out[facility] Encounter [id number] 08/13 [facility] Out[facility] Encounter [id number] 08/13 [facility] Outpatient Encounter [id number] 08/27 [facility] OFFICE O/P NEW HI 60 MIN [id number] Diagnos is: ICD-10- CM M54.2 Cervica lgia NIMO GRA[facility]ES [facility] 08/30 [facility] SELF CARE MNGMENT TRAINING [id number] Diagnos is: ICD-10- CM G89.29 Other chronic pain KATHARINA LAWTON 08/30 [facility] Outpatient Encounter [id number] 08/30 [facility] Outpatient Encounter [id number] 08/30 [facility] OFFICE O/P EST MOD 30 MIN [id number] Diagnos is: ICD-10- CM F41.9 Anxiety disorde r, unspeci fied Chapito MOY 08/31 [facility] OFFICE O/P EST MOD 30 MIN [id number] Diagnos is: ICD-10- CM F41.9 Anxiety disorde r, unspeci fied FARZANEH,M YAIR 09/22 [facility] Out[facility] Encounter [id number] 09/23 [facility] ACUPUNCT W/O STIMUL 15 MIN [id number] Diagnos is: ICD-10- CM M54.2 Cervica lgia GAUNYA,CHR ISTOPHER M 09/26 [facility] Out[facility] Encounter [id number] 09/28 [facility] PSYTX W PT 45 MINUTES [id number] Diagnos is: ICD-10- CM F41.9 Anxiety disorde r, unspeci fied POZZETTO,S IMONA 10/13 [facility] PSYTX W PT 30 MINUTES [id number] Diagnos is: ICD-10- CM F41.9 Anxiety disorde r, unspeci fied POZZETTO,S IMONA 10/17 [facility] Outpatient [facility]counter [id number] 10/17 [facility] OFFICE O/P EST LOW 20 MIN [id number] Diagnos is: ICD-10- CM M54.12 Radicul opathy, cervica l region GAUNYA,CHR ISTOPHER M 10/18 [facility] OFFICE O/P EST MOD 30 MIN [id number] Diagnos is: ICD-10- CM F41.9 Anxiety disorde r, unspeci fied FARZANEH,M YAIR 10/19 [facility] PSYTX W PT 30 MINUTES [id number] Diagnos is: ICD-10- CM F41.9 Anxiety disorde r, unspeci fied POABBY,S IMONA 10/20 [facility] Outpatient Encounter [id number] 10/24 [facility] OFFICE O/P EST HI 40 MIN [id number] Diagnos is: ICD-10- CM G89.29 Other chronic pain KUPFERSCHM ID,ENEDELIA B 10/25 [facility] ACUPUNCT W/O STIMUL 15 MIN [id number] Diagnos is: ICD-10- CM R52 Pain, unspeci fied GAUNYA,CHR ISTOPHER M 10/25 [facility] Outpatient [facility]counter [id number] 11/01 [facility] OFFICE O/P EST HI 40 MIN [id number] Diagnos is: ICD-10- CM R52 Pain, unspeci fied CUTLER,ELIER WILLY S 11/02 [facility] Outpatient Encounter [id number] 11/11 [facility] OFFICE O/P EST MOD 30 MIN [id number] Diagnos is: ICD-10- CM F41.9 Anxiety disorde r, unspeci fied Chapito MOY 11/16 [facility] Outpatient Encounter [id number] 11/17 [facility] ACUPUNCT W/O STIMUL 15 MIN [id number] Diagnos is: ICD-10- CM M54.2 Cervica lgia GAUNYA,CHR ISTOPHER M 11/18 [facility] Outpatient Encounter [id number] 11/21 [facility] ACUPUNCT W/O STIMUL 15 MIN [id number] Diagnos is: ICD-10- CM M54.2 Cervica lgia GAUNYA,CHR ISTOPHER M 12/01 [facility] Out[facility] Encounter [id number] 12/02 [facility] SELF CARE MNGMENT TRAINING [id number] Diagnos is: ICD-10- CM G89.29 Other chronic pain KATHARINA LAWTON 12/05 [facility] Outpatient Encounter [id number] 12/07 [facility] Outpatient Encounter [id number] 12/07 [facility] OFF/OP EST MAY X REQ PHY/QHP [id number] Diagnos is: ICD-10- CM Z71.9 Reforestation Worker ing, unspeci emilee MULLIGAN,M MAKAYLA H 12/08 [facility] ACUPUNCT W/O STIMUL 15 MIN [id number] Diagnos is: ICD-10- CM M54.2 Cervica lgia MARVIN,CHR ISTOPHER M 12/08 [facility] Outpatient Encounter [id number] 12[facility]12 [facility] HLTH V ASSMT/REAS SESSMENT [id number] Diagnos is: ICD-10- CM G89.4 Chronic pain syndrom e TAVON EVANGELISTA 12/13 [facility] OFFICE O/P NEW MOD 45 MIN [id number] Diagnos is: ICD-10- CM M54.2 Cervica lgia ALICE HERNANDEZ RA 12/13 [facility] Outpatient Encounter [id number] 12/14 [facility] ACUPUNCT W/O STIMUL ADDL 15M [id number] Diagnos is: ICD-10- CM M54.12 Radicul opathy, cervica l region GAUNYA,CHR ISTOPHER M 12/15 [facility] Outpatient Encounter [id number] 12/26 [facility] Outpatient Encounter [id number] 12/27 [facility] OFFICE O/P EST MOD 30 MIN [id number] Diagnos is: ICD-10- CM R52 Pain, unspeci fied CUTLERELIER S 12/27 [facility] ACUPUNCT W/O STIMUL ADDL 15M [id number] Diagnos is: ICD-10- CM R52 Pain, unspeci fied GAUNYA,CHR ISTOPHER M 12/28 [facility] PSYCHOPHYS IOLOGICAL THERAPY [id number] Diagnos is: ICD-10- CM G89.4 Chronic pain syndrom e TAVON EVANGELISTA 12/28 [facility] Outpatient Encounter [id number] 01/05 [facility] Outpatient Encounter [id number] 01/05 [facility] OFFICE O/P EST MOD 30 MIN [id number] Diagnos is: ICD-10- CM F41.9 Anxiety disorde r, unspeci fied FURCOLO,TI NA 01/05 [facility] ACUPUNCT W/O STIMUL 15 MIN [id number] Diagnos is: ICD-10- CM M54.12 Radicul opathy, cervica l region [facility],CHR ISTOPHER M 01/05 [facility] Outpatient Encounter [id number] 01/09 [facility] Outpatient Encounter [id number] 01/10 [facility] ACUPUNCT W/O STIMUL 15 MIN [id number] Diagnos is: ICD-10- CM M54.2 Cervica lgia [facility] ISTOPHER M 01/13 [facility] HC PRO PHONE CALL 11-20 MIN [id number] Diagnos is: ICD-10- CM Z72.3 Lack of physica l SHAILA Gavin 01/13 [facility] MANUAL THERAPY 1/> REGIONS [id number] Diagnos is: ICD-10- CM M54.2 Cervica lgia ALICE HERNANDEZ RA 01/17 [facility] OFFICE O/P EST MOD 30 MIN [id number] Diagnos is: ICD-10- CM F41.9 Anxiety disorde r, unspeci fied Chapito MOY YAIR 01/18 [facility] Out[facility] Encounter [id number] 01/23 [facility] Outpatient Encounter [id number] 01/24 [facility] MECHANICAL TRACTION THERAPY [id number] Diagnos is: ICD-10- CM M54.2 Cervica pino HERNANDEZ,JENKINS RA 01/24 [facility] Out[facility] Encounter [id number] 01/24 [facility] MECHANICAL TRACTION THERAPY [id number] Diagnos is: ICD-10- CM M54.2 Cervica lgia DAVID,JENKINS RA 01/31 [facility] Outpatient Encounter [id number] 01/31 [facility] OFFICE O/P EST MOD 30 MIN [id number] Diagnos is: ICD-10- CM F41.9 Anxiety disorde r, unspeci fied FARZANEHM YAIR 02/01 [facility] ACUPUNCT W/O STIMUL 15 MIN [id number] Diagnos is: ICD-10- CM M54.2 Cervica lgia GAUNYA,CHR ISTOPHER M 02/01 [facility] Outpatient Encounter [id number] 02/01 [facility] Outpatient Encounter [id number] 02/01 [facility] PT EDUCATION NOC INDIVID [id number] Diagnos is: ICD-10- CM Z72.3 Lack of physica l SHAILA Gavin 02/03 [facility] SELF CARE MNGMENT TRAINING [id number] Diagnos is: ICD-10- CM M54.59 Other low back pain EMET,KATHL EEN 02/09 [facility] MANUAL THERAPY 1/ REGIONS [id number] [id number] Diagnos is: ICD-10- CM M54.59 Other low back pain EMET,KATHL EEN 02/13 [facility] WELLNESS ASSESSMENT BY NONP [id number] [id number] Diagnos is: ICD-10- CM 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.89 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 ed 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 BRIANDA Parada 02/13 [facility] Outpatient Encounter [id number] 02/21 [facility] Outpatient Encounter [id number] 02/28 [facility] OFFICE O/P EST MOD 30 MIN [id number] Diagnos is: ICD-10- CM F41.1 General ized anxiety disorde Chapito Sutton 03/01 [facility] WELLNESS ASSESSMENT BY [facility] [id number] Diagnos is: ICD-10- CM Z71.89 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 ed 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 ing MELYSSA DRAKEN Carlin MASON 03/02 [facility] Out[facility] Encounter [id number] VIDALBRIANDA CUEVAS 03/04 [facility] THERAPEUTI C EXERCISES [id number] Diagnos is: ICD-10- CM M54.59 Other low back pain MARYAMKATHARINA STRICKLAND XAVIER 03/13 [facility] Outpatient Encounter [id number] Diagnos is: ICD-10- CM R52 Pain, unspeci fied CUTLERELIER TAYLORM S 03/14 [facility] ACUPUNCT W/O STIMUL ADDL 15M [id number] Diagnos is: ICD-10- CM M54.12 Radicul opathy, cervica l region GAUNYA,CHR ISTOPHER M 03/15 [facility] Outpatient [facility]counter [id number] 1.03/22 [facility] Outpatient Encounter [id number] 1.03/22 [facility] PSYTX W PT 30 MINUTES [id number] Diagnos is: ICD-10- CM F41.9 Anxiety disorde r, unspeci fied Jairo DUBON M 03/22 [facility] Outpatient Encounter [id number] 03/22 [facility] OFFICE O/P EST MOD 30 MIN [id number] [id number] Diagnos is: ICD-10- CM F41.1 General ized anxiety disorde Chapito Sutton 03/28 [facility] Outpatient Encounter [id number] 1.03/29 [facility] Outpatient Encounter [id number] 1.03/29 [facility] OFFICE O/P EST MOD 30 MIN [id number] Diagnos is: ICD-10- CM R52 Pain, unspeci fied FURCOLO,TI NA 03/29 [facility] WELLNESS ASSESSMENT BY [facility] [id number] Diagnos is: ICD-10- CM Z73.3 Stress, not elsewhe re classif ied BRIANDA DRAKE 03/30 [facility] Outpatient Encounter [id number] 1.04/05 [facility] OFF/OP EST MAY X REQ PHY/QHP [id number] Diagnos is: ICD-10- CM Z23 Encount er for immuniz ation RA FERNANDO LANCASTER 04/07 [facility] Out[facility] Encounter [id number] 04/11 [facility] OFFICE O/P EST HI 40 MIN [id number] 1. Diagnos is: ICD-10- CM R52 Pain, unspeci fied CUTLER,ELIER AGUILERA S 04/12 [facility] Out[facility] Encounter [id number] 04/12 [facility] INFRARED THERAPY [id number] 1. Diagnos is: ICD-10- CM M54.12 Radicul opathy, cervica l region GAUNYA,CHR ISTOPHER M 04/14 [facility] Outpatient Encounter [id number] [facility] MANUAL THERAPY 1/> REGIONS [id number] Diagnos is: ICD-10- CM M54.59 Other low back pain EMET,KATHL EEN 04/18 [facility] SELF CARE MNGMENT TRAINING [id number] Diagnos is: ICD-10- CM M54.59 Other low back pain EMET,KATHL EEN 04/19 [facility] QNHP OL DIG ASSMT&MGMT 5-10 [id number] Diagnos is: ICD-10- CM M54.12 Radicul opathy, cervica l region SHALINI,BET EMELIA S 04/20 [facility] OFFICE O/P EST MOD 30 MIN [id number] 1. Diagnos is: ICD-10- CM F41.1 General ized anxiety disorde r FARZANEHChapito YAIR 04/24 [facility] Outpatient Encounter [id number] 04/24 [facility] THERAPEUTI C EXERCISES [id number] 1. Diagnos is: ICD-10- CM M54.59 Other low back pain EMET,KATHARINA EEN 04/24 [facility] Outpatient Encounter [id number] 04/24 [facility] INFRARED THERAPY [id number] Diagnos is: ICD-10- CM F41.9 Anxiety disorde r, unspeci fied [facility] M 04/26 [facility] Outpatient Encounter [id number] 04/27 [facility] THERAPEUTI C EXERCISES [id number] Diagnos is: ICD-10- CM M54.59 Other low back pain EMET,JEOVANNYHL EEN 05/01 [facility] OFF/OP EST MAY X REQ PHY/QHP [id number] Diagnos is: ICD-10- CM Z23 Encount er for immuniz ation SAMUEL ROCHA NON P 05/02 [facility] INFRARED THERAPY [id number] Diagnos is: ICD-10- CM R52 Pain, unspeci emilee WONG,CHR ISTOPHER M 05/02 [facility] THERAPEUTI C EXERCISES [id number] Diagnos is: ICD-10- CM M54.59 Other low back pain EMET,KATHARINA TELLESN 05/03 [facility] THERAPEUTI C EXERCISES [id number] Diagnos is: ICD-10- CM M54.59 Other low back pain EMET,KATHARINA TELLESN 05/10 [facility] Out[facility] Encounter [id number] 1. EMETKATHARINANaya 05/11 [facility] Out[facility] Encounter [id number] 1. EMETKATHARINAN 05/11 [facility] Encounter [id number] 05/17 [facility] THERAPEUTI C EXERCISES [id number] Diagnos is: ICD-10- CM M54.59 Other low back pain EMET,KATHARINA TELLESN 05/17 [facility] Out[facility] Encounter [id number] 05/18 [facility] OFFICE O/P EST MOD 30 MIN [id number] Diagnos is: ICD-10- CM F41.1 General ized anxiety disorde Chapito Sutton 05/22 [facility] ([facility] Outpatient Encounter [id number] 05/26 [facility] En[facility] [id number] 05/26 [facility] SELF CARE MNGMENT TRAINING [id number] Diagnos is: ICD-10- CM M54.59 Other low back pain KATHARINA LAWTON 05/31 [facility] Out[facility] Encounter [id number] [facility] SELF-MGMT EDUC/TR[place] 5-8 [place] [id number] Diagnos is: ICD-10- CM G89.4 Chronic pain syndrom e JEAN CARLOSTAVON IFER 06/06 [facility] Out[facility] Encounter [id number] 06/12 [facility] Out[facility] Encounter [id number] 06/12 [facility] [facility] SELF-MGMT EDUC/[place] 5-8 [place] [id number] Diagnos is: ICD-10- CM G89.4 Chronic pain syndrom e JEAN CARLOSTAVON IFRITIKA 06/13 [facility] OFFICE O/P EST HI 40 MIN [id number] Diagnos is: ICD-10- CM R52 Pain, unspeci fied CUTELIER MAYER S 06/14 [facility] Out[facility] Encounter [id number] 06/15 [facility] Encounter [id number] 06/19 [facility] Encounter [id number] 06/19 [facility] OFFICE O/P EST MOD 30 MIN [id number] Diagnos is: ICD-10- CM F41.1 General ized anxiety disorde Chapito Sutton 06/20 [facility] SELF-MGMT EDUC/TRAIN 2-4 [place] [id number] Diagnos is: ICD-10- CM G89.4 Chronic pain syndrom e JEAN CARLOSTAVON IFER 06/20 [facility] Out[facility] Encounter [id number] 06/20 [facility] Encounter [id number] 06/26 [facility] SELF-MGMT EDUC/TRAIN 5-8 [place] [id number] Diagnos is: ICD-10- CM G89.4 Chronic pain syndrom e JEAN CARLOSTAVON IFER 06/27 [facility] Out[facility] Encounter [id number] 06/30 [facility] Encounter [id number] 07/03 [facility] SELF-MGMT EDUC/TRAIN 5-8 [place] [id number] 1. Diagnos is: ICD-10- CM G89.4 Chronic pain syndrom e TAVON EVANGELISTA IFER 07/04 [facility] COM[place] NEW [place] 1/ [id number] 1. Diagnos is: ICD-10- CM H25.13 Age-rel ated nuclear catarac t, bilater al CHINA FOSTER E 07/05 [facility] FIT SPECTACLES MULTIFOCAL [id number] 1. Diagnos is: ICD-10- CM Z46.0 Encount er for fit/adj st of spectac les and contact lenses CH[place] FOSTER E 07/05 [facility] OFFICE O/P EST MOD 30 MIN [id number] Diagnos is: ICD-10- CM R52 Pain, unspeci fied FURCOLO,TI NA 07/10 [facility] Encounter [id number] 07/11 [facility] OFFICE O/P EST MOD 30 MIN [id number] Diagnos is: ICD-10- CM F41.1 General ized anxiety disorde Chapito Sutton 07/11 [facility] Outpatient Encounter [id number] 07/17 [facility] Outpatient Encounter [id number] 07/24 [facility] Outpatient Encounter [id number] 07/24 [facility] Outpatient Encounter [id number] 07/31 [facility] Outpatient Encounter [id number] 07/31 [facility] EDU&TRN PT SLF-MGMT NQHP 5-8 [id number] Diagnos is: ICD-10- CM G89.4 Chronic pain syndrom e JEAN CARLOSTAVON IFER 08/01 [facility] Out[facility] Encounter [id number] 08/07 [facility] EDU&TRN PT SLF-MGMT NQHP 5-8 [id number] Diagnos is: ICD-10- CM G89.4 Chronic pain syndrom e FARZAD EVANGELISTAN IFER 08/08 [facility] Outpatient Encounter [id number] 08/09 [facility] OFFICE O/P EST MOD 30 MIN [id number] Diagnos is: ICD-10- CM F41.1 General ized anxiety disorde Chapito Sutton 08/09 [facility] MANUAL THERAPY 1/> REGIONS [id number] Diagnos is: ICD-10- CM M54.59 Other low back pain EMET,KATHARINA PARK 08/15 [facility] MANUAL THERAPY 1/> REGIONS [id number] Diagnos is: ICD-10- CM M54.59 Other low back pain EMET,KATHARINA PARK 08/21 [facility] INFRARED THERAPY [id number] Diagnos is: ICD-10- CM M54.2 Cervica lgia MARVIN,CHR ISTOPHER M 08/29 [facility] THERAPEUTI C EXERCISES [id number] Diagnos is: ICD-10- CM M54.59 Other low back pain EMET,KATHARINA PARK 08/30 [facility] Outpatient Encounter [id number] 09/12 [facility] THERAPEUTI C EXERCISES [id number] Diagnos is: ICD-10- CM M54.59 Other low back pain EMET,KATHARINA PARK 09/12 [facility] Out[facility] Encounter [id number] 09/13 [facility] OFFICE O/P EST MOD 30 MIN [id number] Diagnos is: ICD-10- CM F41.1 General ized anxiety disorde adela Chapito MOY YAIR 09/14 [facility] OFFICE O/[place] HI 40 MIN [id number] Diagnos is: ICD-10- CM R52 Pain, unspeci fied CUTLERELIER S 09/14 [facility] [place] Outpatient Encounter [id number] 09/15 [facility] [place] [facility]LE[facility] FAC[facility] FEE [id number] Diagnos is: ICD-10- CM G47.30 Sleep apnea, unspeci fied NIRU,FREDE SHAKEEL 09/18 [facility] [place] [facility] (631GE) EDU&TRN PT SELF-MGMT NQHP 1 [id number] Diagnos is: ICD-10- CM G47.30 Sleep apnea, unspeci fied NIRU,FREDE SHAKEEL 09/18 [facility] (631GE) [facility] [facility] THERAPEUTI C EXERCISES [id number] Diagnos is: ICD-10- CM M54.59 Other low back pain EMET,KATHL EEN 09/19 [facility] [place] [place] GROUP PSYCHOTHER APY [id number] Diagnos is: ICD-10- CM R52 Pain, unspeci fied MALINOFSKY ,GIN 09/22 [facility] [place] [place] [facility] SELF CARE MNGMENT TRAINING [id number] Diagnos is: ICD-10- CM M54.59 Other low back pain EMET,KATHL EEN 09/25 [facility] [place] [place] SELF CARE MNGMENT TRAINING [id number] Diagnos is: ICD-10- CM M54.59 Other low back pain EMET,KATHARINA PARK 10/03 [facility] [place] GROUP PSYCHOTHER APY [id number] Diagnos is: ICD-10- CM F41.9 Anxiety disorde r, unspeci fied MALINOFSKY ,GIN 10/06 [facility] [place] INFRARED THERAPY [id number] Diagnos is: ICD-10- CM M54.2 Cervica lgia [facility] 10/06 [facility] [place] [facility] [place] [facility] SELF CARE MNGMENT TRAINING [id number] Diagnos is: ICD-10- CM M54.59 Other low back pain EMET,KATHARINA PARK 10/09 [facility] [place] [facility] [place] [facility] PSYCH DIAGNOSTIC EVALUATION [id number] Diagnos is: ICD-10- CM F41.9 Anxiety disorde r, unspeci fied MALINOFSKY ,GIN 10/16 [facility] [place] [facility] [place] [facility] SELF CARE MNGMENT TRAINING [id number] Diagnos is: ICD-10- CM M54.59 Other low back pain EMET,KATHARINA PARK 10/18 [facility] [place] [facility] SLEEP STUDY UNATT&RESP EFFT [id number] Diagnos is: ICD-10- CM G47.30 Sleep apnea, unspeci fied CURIOSO-UY ,JUANA 10/18 [facility] [place] [facility] PSYTX W PT 45 MINUTES [id number] Diagnos is: ICD-10- CM F41.9 Anxiety disorde r, unspeci fied MALINOFSKY ,GIN 10/23 [facility] [place] [facility] [place] [facility] SYNCH AUDIO-ONLY EST LOW 20 [id number] Diagnos is: ICD-10- CM G47.30 Sleep apnea, unspeci fied CUTLERELIER S 10/24 [facility] [place] [facility] [facility] OFFICE O/P EST MOD 30 MIN [id number] Diagnos is: ICD-10- CM F41.1 General ized anxiety disorde r Chapito MOY 10/27 [facility] [place] [place] [facility] PSYTX W PT 30 MINUTES [id number] Diagnos is: ICD-10- CM F41.9 Anxiety disorde r, unspeci fied MALINOFSKY ,GIN 10[facility] Social History Combined list of available smoking, tobacco, and other social history from Department of Defense and Veterans Affairs facilities. Social History Type Response Date Comment Sourc e Tobacco smoking status NHIS OR-TOBACCO NEVER USED CIGARETTES 07/10/2024 [facility] [place] [facility] of [facility] 07/10/2024 [facility] [place] [facility] History of tobacco use OR-TOBACCO NEVER USED 09/04/2021 [facility] [place] [facility] Plan of Care List of future care activities from Department of Veterans Affairs facilities. Additional future care activities may be listed in the Assessment and Plan section. Date/Time Care Activity Care Activity Detail Facili ty 11/09/2024 AMBULATORY - MEDICINE AMBULATORY - MEDICI [facility] [place] [facility]
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
--- OUTSIDE RECORDS SUMMARY | 2024-11-06 17:34 | XMS_ITS ---
Author Name [facility] [place] Organization [facility] [place] Address [address] [place] [address] Care Team Providers Care Senior Oracle Database Administrator Name Role Phone NADERNALLELY Primary Care Provider [...] PART B Feb 24, 2020 PART B [id number] [phone] STAR DOUGHERTY JR PATIENT MEDICARE (WNR) MEDICARE (M) PART B Feb 24, 2020 PART B [id number] STAR DOUGHERTY JR PATIENT MEDICARE (WNR) MEDICARE (M) PART A November 24, 2019 PART A [id number] STAR DOUGHERTY JR PATIENT MEDICARE (WNR) MEDICARE (M) PART A November 24, 2019 PART A [id number] STAR DOUGHERTY JR 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 Date/Time Primary/Secondary Diagnosis Diagnosis Name Provider Source Mar 19, 2024 11:50 AM PRIMARY Cervicalgia MICHAEL HERNANDEZ [facility] [place] [facility] Mar 19, 2024 11:50 AM SECONDARY Other low back pain MICHAEL HERNANDEZ [facility] [place] [facility] Plan of Treatment: Future Appointments (+ 6 months) and Future Tests (+/- 45 days) The Plan of Treatment section includes future care activities for the patient [facility] [place] [facility] This section includes future [...] 02, 2024 11:00 AM AMBULATORY - PSYCHIATRY [facility] [place] [facility] Feb 02, 2024 12:30 PM AMBULATORY - MEDICINE [place] [facility] [place] [facility] Feb 10, 2024 11:15 AM AMBULATORY - REHAB MEDICIN E [facility] [place] [facility] Feb 14, 2024 09:30 AM AMBULATORY - MEDICINE [place] [facility] [place] [facility] Feb 14, 2024 10:00 AM AMBULATORY - MEDICINE [place] [facility] [place] [facility] Mar 01, 2024 09:00 AM AMBULATORY - PSYCHIATRY [facility] [place] [facility] Mar 02, 2024 11:00 AM AMBULATORY - MEDICINE [place] [facility] [place] [facility] Mar 13, 2024 08:00 AM AMBULATORY - MEDICINE [facility] [place] [facility] Mar 15, 2024 10:30 AM AMBULATORY - MEDICINE [facility] [place] [facility] Mar 20, 2024 10:00 AM AMBULATORY - MEDICINE [facility] [place] [facility] Mar 22, 2024 10:45 AM AMBULATORY - MEDICINE [facility] [place] [facility] Mar 22, 2024 11:00 AM AMBULATORY - PSYCHIATRY [facility] [place] [facility] Mar 28, 2024 09:00 AM AMBULATORY - PSYCHIATRY [facility] [place] [facility] Mar 29, 2024 09:00 AM AMBULATORY - MEDICINE [facility] [place] [facility] Mar 30, 2024 09:00 AM AMBULATORY - MEDICINE [facility] [place] [facility] Apr 12, 2024 11:00 AM AMBULATORY - MEDICINE [facility] [place] [facility] Apr 14, 2024 08:30 AM AMBULATORY - MEDICINE [facility] [place] [facility] Apr 18, 2024 08:00 AM AMBULATORY - MEDICINE [facility] [place] [facility] Apr 19, 2024 01:00 PM AMBULATORY - MEDICINE [facility] [place] [facility] Apr 24, 2024 11:00 AM AMBULATORY - PSYCHIATRY [facility] [place] [facility] Active, Pending, and Scheduled [...] Order LIPID PANEL FASTING BLOOD (SST-SERUM) SP [facility] [place] [facility] Jan 06, 2024 12:00 AM Laboratory - Chemistry Order OCCULT BLOOD FIT X1 SCREEN(IN-HOUSE) STOOL FECES SP [facility] [place] [facility] Jan 19, 2024 12:00 AM Laboratory - Chemistry Order HEMOGLOBIN A1C PANEL BLOOD (LAV-BLOOD) SP [facility] [place] [facility] Jan 19, 2024 12:00 AM Laboratory - Chemistry Order BASIC METABOLIC PANEL (non-fasting) BLOOD (SST-SERUM) [facility] Jan 19, 2024 12:00 AM Laboratory - Chemistry Order TSH BLOOD (SST-SERUM) [facility] Jan 19, 2024 12:00 AM Laboratory - Chemistry Order LIVER FUNCTION BLOOD (SST-SERUM) [facility] Jan 19, 2024 12:00 AM Laboratory - Chemistry Order CBC AND DIFF (AUTO) BLOOD (LAV-BLOOD) [facility] Jan 19, 2024 12:00 AM Laboratory - Chemistry Order LIPID PANEL, NON FASTING BLOOD (SST-SERUM) [facility] Social History: Smoking Status [...] 04, 2021 02:56 PM VA-TOBACCO NEVER USED [facility] Encounter Notes: All associated encounter notes This section contains the clinical notes associated to the Encounter. 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 neck therapy, massage; cortisone injections in low back R shoulder Exercise/Activities: none except yard work, stretching ; and going for a walk which is getting more difficult. He states that he is under a lot of stress. His is waiting for a liver transplant. Going to [place] for appts. Reviewed Radiologist's reports: none found [facility] MRI L/Sp Patient denies bowel/bladder dysfunction [...] Self-Care Recommendations: Discussed and recommended [employer] Tool Straightener to which patient agreed. Avoid prolonged sitting; [...] modulation. Plan: Trial Chiro; consult [employer] cross country and track and field coach and PT Visit 4/5 F/U 4 weekly Seek urgent care as needed. CMT: chiropractic manipulative therapy SMT: Spinal Manipulative Therapy F/D: Flexion Distraction MFR: Myofascial Release S-I: Sacroiliac MFTP: Myofascial Trigger Point NRS: Numeric Rating Scale N/T: Numbness/Tingling PIR: Post isometric relaxation /es/ MICHAEL HERNANDEZ D.C. CHIROPRACTOR Signed: 02/01/2024 10:23 MICHAEL HERNANDEZ [facility]
--- OUTSIDE RECORDS SUMMARY | 2024-11-06 17:34 | XMS_ITS | Encounter Summary ---
Author Name [facility] [place] Organization [facility] [place] Address [address] [place] [id number] Care Team Providers Care Mobile Product Manager Name Role Phone MELBA DOE Primary [...] PART B Feb 24, 2020 PART B [id number] STAR DOUGHERTY JR PATIENT MEDICARE (WNR) MEDICARE (M) PART B Feb 24, 2020 PART B [id number] DOUGHERTY TONYLYNNE PATIENT MEDICARE (WNR) MEDICARE (M) PART A November 24, 2019 PART A [id number] [id number] STAR DOUGHERTY JR PATIENT MEDICARE (WNR) MEDICARE (M) PART A November 24, 2019 PART A [id number] [phone] DOUGHERTY STAR COLEMAN 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 Date/Time Encounter Type Encounter Description Reason Provider Source Jun 27, 2024 01:00 PM SELF-MGMT EDUC/TRAIN 5-8 PT PAIN CLINIC ICD-10-CM G89.4 Chronic pain syndrome YAMILE ROJAS Carlin Encounter Template Text not used by [place] Assessments - Encounter Diagnoses This section includes the primary and secondary diagnoses documented for the Encounter. Date/Time Primary/Secondary Diagnosis Diagnosis Name Provider Source Jun 27, 2024 03:45 PM PRIMARY Chronic pain syndrome YAMILE ROJAS [facility] [place] [facility] Plan of Treatment: Future Appointments (+ 6 months) and Future Tests (+/- 45 days) The Plan of Treatment section includes future care activities for the patient [facility] [place] [facility] This section includes future appointments [...] - MEDICINE [place] [facility] [place] [facility] Jul 05, 2024 01:00 PM AMBULATORY - MEDICINE [place] [facility] [place] [facility] Jul 10, 2024 08:30 AM AMBULATORY - MEDICINE [place] [facility] [place] [facility] Jul 11, 2024 03:00 PM AMBULATORY - PSYCHIATRY [facility] [place] [facility] Jul 31, 2024 10:30 AM AMBULATORY - NONE [facility] [place] [facility] Aug 01, 2024 01:00 PM AMBULATORY - MEDICINE [place] [facility] [place] [facility] Aug 08, 2024 01:00 PM AMBULATORY - MEDICINE [place] [facility] [place] [facility] Aug 09, 2024 10:30 AM AMBULATORY - PSYCHIATRY [facility] [place] [facility] Aug 15, 2024 10:00 AM AMBULATORY - MEDICINE [facility] [place] [facility] Aug 21, 2024 02:30 PM AMBULATORY - MEDICINE [facility] [place] [facility] Aug 29, 2024 09:30 AM AMBULATORY - MEDICINE [facility] [place] [facility] Aug 30, 2024 01:00 PM AMBULATORY - MEDICINE [facility] [place] [facility] Sep 12, 2024 01:45 PM AMBULATORY - MEDICINE [facility] [place] [facility] Sep 14, 2024 10:30 AM AMBULATORY - PSYCHIATRY [facility] [place] [facility] Sep 14, 2024 11:30 AM AMBULATORY - MEDICINE [facility] [place] [facility] Sep 18, 2024 11:30 AM AMBULATORY - MEDICINE [facility] [place] [facility] Sep 18, 2024 11:31 AM AMBULATORY - MEDICINE [facility] [place] [facility] Sep 19, 2024 02:30 PM AMBULATORY - MEDICINE [facility] [place] [facility] Sep 22, 2024 09:00 AM AMBULATORY - PSYCHIATRY [facility] [place] [facility] Sep 25, 2024 02:45 PM AMBULATORY - MEDICINE VA [...] Type Comment Jul 04, 2024 07:55 AM [facility] [place] [facility] METHADONE SCREEN URINE Specimen Type: URINE Comment: NATO test are qualitative, any L or H flags only indicate a [facility] alert was sent. Ordering Provider: CESAR LOYA Report Released Date/Time: Apr 20, 2024 08:58 AM Reporting Lab: [place] [facility] [place] [facility] [address] [facility] [address] Performing Lab: [place] [facility] [place] [facility] [address] [facility] [address] METHADONE SCREEN None detected(Negative) L Negative Jul 04, 2024 07:55 AM [facility] ALCOHOL, ETHYL URINE PANEL URINE Specimen [...] Apr 20, 2024 08:58 AM Reporting Lab: [address] [address] Performing Lab: [address] [address] ALCOHOL, ETHYL URINE NONE-DETECTED mg/dL NONE-DETECTED, cutoff = 10 mg/dL PH, NATO 5.4 [pH] 4-10 CREATININE, NATO 123.15 mg/dL >20 SP.GRAVITY, NATO 1.026 H 1.003-1.020 Jul 04, 2024 07:55 AM [facility] FENTANYL SCREEN PANEL URINE Specimen Type: [...] Apr 20, 2024 08:58 AM Reporting Lab: [address] [address] Performing Lab: [address] [address] FENTANYL SCREEN NONE-DETECTED ng/mL Nega tive: Cutoff = 1.00 ng/mL PH, NATO 5.4 [pH] 4-10 CREATININE, NATO 123.70 mg/dL >20 SP.GRAVITY, NATO 1.026 H 1.003-1.020 Jul 04, 2024 07:55 AM [facility] AMPHETAMINES SCREEN PANEL URINE Specimen Type [...] 11 may have been adulterated. Ordering Provider: CEASR LOYA Report Released Date/Time: Apr 20, 2024 08:58 AM Reporting Lab: [address] [address] Performing Lab: [address] [address] AMPHETAMINES SCREEN NONE-DETECTED None-D etected, Cutoff = 1000 ng/mL PH, NATO 5.4 [pH] 4-10 CREATININE, NATO 123.15 mg/dL >20 SP.GRAVITY, NATO 1.026 H 1.003-1.020 Jul 04, 2024 07:55 AM [facility] BENZODIAZEPINES SCREEN PANEL URINE Specimen T [...] Apr 20, 2024 08:58 AM Reporting Lab: [address] [address] Performing Lab: [address] [address] BENZODIAZEPINES SCREEN NONE-DETECTED Non e-Detected, Cutoff = 200 ng/mL PH, NATO 5.4 [pH] 4-10 CREATININE, NATO 123.15 mg/dL >20 SP.GRAVITY, NATO 1.026 H 1.003-1.020 Jul 04, 2024 07:55 AM [facility] BUPRENORPHINE SCREEN PANEL URINE Specimen Typ [...] Apr 20, 2024 08:58 AM Reporting Lab: [address] [address] Performing Lab: [address] [address] BUPRENORPHINE (URINE) NONE-DETECTED None Detected, Cutoff = 10.0 ng/mL PH, NATO 5.4 [pH] 4-10 CREATININE, NATO 123.15 mg/dL >20 SP.GRAVITY, NATO 1.026 H 1.003-1.020 Jul 04, 2024 07:55 AM [facility] COCAINE SCREEN PANEL URINE Specimen Type: [...] Apr 20, 2024 08:58 AM Reporting Lab: [address] [address] Performing Lab: [address] [address] COCAINE SCREEN NONE-DETECTED None-Detect ed,Cutoff = 300 ng/mL PH, NATO 5.4 [pH] 4-10 CREATININE, NATO 123.15 mg/dL >20 SP.GRAVITY, NATO 1.026 H 1.003-1.020 Jul 04, 2024 07:55 AM [facility] [employer] [facility] Sleep[facility] CANNABINOIDS SCREEN PANEL URINE Specimen Type : [...] Apr 20, 2024 08:58 AM Reporting Lab: [facility] [employer] [address] Performing Lab: [address] [address] CANNABINOIDS SCREEN NONE-DETECTED None-D etected,Cutoff = 50 ng/mL PH, NATO 5.4 [pH] 4-10 CREATININE, NATO 123.15 mg/dL >20 SP.GRAVITY, NATO 1.026 H 1.003-1.020 Jul 04, 2024 07:55 AM [facility] [place] [employer] [facility] OPIATES SCREEN PANEL URINE Specimen Type: [...] Apr 20, 2024 08:58 AM Reporting Lab: [facility] [place] [employer] [address] Performing Lab: [address] [address] OPIATES SCREEN NONE-DETECTED None-Detect ed, Cutoff = 300 ng/mL PH, NATO 5.4 [pH] 4-10 CREATININE, NATO 123.15 mg/dL >20 SP.GRAVITY, NATO 1.026 H 1.003-1.020 Jul 04, 2024 07:55 AM [facility] OXYCODONE SCREEN PANEL URINE Specimen Type: [...] Apr 20, 2024 08:58 AM Reporting Lab: [address] [address] Performing Lab: [address] [address] OXYCODONE SCREEN NONE-DETECTED None-Dete cted, Cutoff = 100 ng/mL PH, NATO 5.4 [pH] 4-10 CREATININE, NATO 123.15 mg/dL >20 SP.GRAVITY, NATO 1.026 H 1.003-1.020 Jul 04, 2024 07:51 AM [facility] [id number] PGx BLOOD Specimen Type: BLOOD Comment: shipped on manifest [id number] Ordering Provider: YANCY MOY Report Released Date/Time: Apr 24, 2024 12:11 PM Reporting Lab: [facility] [address] [facility] [address] Performing Lab: [facility] [address] [facility] [address] [id number] PGx comment Jul 04, 2024 07:51 AM [facility] LIVER FUNCTION SERUM Specimen Type: SERUM No comment entered. Ordering Provider: MELBA DOE Report Released Date/Time: Jan 06, 2024 03:34 PM Reporting Lab: [facility] [address] [facility] [address] Performing Lab: [facility] [address] [facility] [address] PROTEIN,TOTAL 6.8 g/dL 6.0-8.3 ALBUMIN 4.2 g/dL 3.5-5.0 ALKALINE PHOSPHATASE 84 U/L 40-150 AST 19 U/L 5-34 ALT 27 U/L BILIRUBIN, TOTAL 0.3 mg/dL 0.2-1.2 Jul 04, 2024 07:51 AM [facility] BASIC METABOLIC PANEL (fasting) SERUM Specime n Type: SERUM No comment entered. Ordering Provider: MELBA DOE Report Released Date/Time: Jan 06, 2024 03:34 PM Reporting Lab: [facility] [address] [facility] [address] Performing Lab: [facility] [address] [facility] [address] UREA NITROGEN 13 mg/dL 7-25 GLUCOSE 123 mg/dL H 65-100 SODIUM 138 mmol/L 135-145 POTASSIUM 4.7 mmol/L 3.5-5.0 CHLORIDE 103 mmol/L 100-110 CO2 27 meq/L 20-30 CREATININE, Serum 0.93 mg/dL 0.50-1.40 eGFR(CKD-EPI 2020) 89 mL/min >60 Jul 04, 2024 07:51 AM [facility] CBC BLOOD Specimen Type: BLOOD No comment entered. Ordering Provider: MELBA DOE Report Released Date/Time: Jan 06, 2024 03:34 PM Reporting Lab: [facility] [address] [facility] [address] Performing Lab: [address] [address] WBC 6.85 10*3/uL 4.50-11.00 RBC 4.76 10*6/uL [...] 03:21 PM PHYSICAL THERAPY NOTE: LOCAL TITLE: ACTIVE INTERDISCIPLINARY SESSION NOTE STANDARD TITLE: PHYSICAL THERAPY NOTE DATE OF NOTE: JUN 27, 2024@15:21 ENTRY DATE: JUN 27, 2024@15:21:40 AUTHOR: YAMILE ROJAS EXP COSIGNER: URGENCY: STATUS: COMPLETED ACTIVE INTERDISCIPLINARY SESSION NOTE Has ADDENDA AMP Interdisciplinary Group Parent Note: Session 4 AMP Provider/s facilitating todays session: Psychologist: Yamile Rojas, Ph.D. Physical Therapist: Eusebia Lawton PT, DPT Length of session: 120 [...] participant. Prior to the AMP program this [place] confirmed their willingness and interest in participating [...] limitations to individualization of care during sessions. [place] informed that individualized breakout sessions can be [...] first portion of todays session focused on discussing the perspective of [...] home practice expectations, including assigned worksheets. Plan: [place] to follow up for session 5 of the AMP program. Further details regarding this session can be found in the attached notes for each discipline. /monisha/ YAMILE ROJAS, PH.D. CLINICAL HEALTH PSYCHOLOGIST Signed: 06/27/2024 15:45 06/27/2024 ADDENDUM STATUS: COMPLETED Active Behavioral Health Session Note [facility] Interdisciplinary Group Session: 4 ======== Please see the session summary portion of [facility] Interdisciplinary Parent Note for details describing the content, strategies, and skills taught during today session. Assessment/Plan: [No] Did the confirm completion (showed worksheets, returned, or verbally) of the home practice work sheets from the previous session? If applicable, please describe the barriers the [place] communicated to completing the previous sessions worksheets: [Yes] [place] was an active participant and provided relevant and on topic contributions during [facility] session. [Yes] The suicide and homicide risk were determined to be low for this during today session. [Yes] No other acute psychological distress was observed for this during [facility] session. [Yes] Continue with AMP upcoming treatment sessions. [No] Additional actions/recommendations are needed for this participating [place]: /monisha/ YAMILE ROJAS, PH.D. CLINICAL HEALTH PSYCHOLOGIST Signed: 06/27/2024 15:46 06/28/2024 ADDENDUM STATUS: COMPLETED Physical Therapy Note AMP Interdisciplinary Group Session: 4 ======== Please see the session summary portion of [facility] Interdisciplinary Note for details describing the content, strategies, and skills taught during [facility] session. Assessment/Plan: [NO] Did the [place] require any suggestions for modifications from the AMP PT to specific skills/strategies performed as part of their home practice since last session? If yes, please describe: [NO] Did specific issues of concern or barriers to participation regarding this [place] come up during today session? If yes, [...] part of his daily routine and this senior writer encouraged him to pair it with mindful stretching daily. /monisha/ EUSEBIA LAWTON DPT PHYSICAL THERAPIST Signed: 06/28/2024 17:29 YAMILE ROJAS [facility] [place] [facility]
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
--- OUTSIDE RECORDS SUMMARY | 2024-11-06 17:34 | XMS_ITS | Encounter Summary ---
Author Name [facility] [place] [facility] [place] Address [address] [place] [address] Care Team Providers Care Gettering Operator Name Role Phone NADER MELBA Primary Care [...] PART B Feb 24, 2020 PART B [id number] STAR DOUGHERTY JR PATIENT MEDICARE (WNR) MEDICARE (M) PART B Feb 24, 2020 PART B [id number] [phone] [id number] DOUGHERTY STAR PATIENT MEDICARE (WNR) MEDICARE (M) PART A November 24, 2019 PART A [id number] D[place] STAR PATIENT MEDICARE (WNR) MEDICARE (M) PART A November 24, 2019 PART A [id number] LADONNA COLEMAN EDLYNNE PATIENT OFFICE OF REGIONAL TEST PULLER NO-FAULT INSURANCE NO FAULT May 12, 2022 NO FAULT [id number] 14 LADONNA COLEMANSTAR PATIENT FOR LIFE SUPPLEMEN QI TFL Feb 24, 2020 FOR LIFE [id number] 14 ROSALES DOUGHERTY PATIENT FOR LIFE TFL* Feb 24, 2020 [id number] 14 STAR DOUGHERTY JR PATIENT Selected Encounter This section includes the information on record at [place] for the Encounter. Date/Time Encounter Type Encounter Description Reason Provider Source Jun 20, 2024 11:00 AM OFFICE O/P EST MOD 30 MIN [facility] - IND ICD-10-CM F41.1 Generalized anxiety disorder TODD MOY [facility] Encounter Template Text not used by [place] Assessments - Encounter Diagnoses This section includes the primary and secondary diagnoses documented for the Encounter. Date/Time Primary/Secondary Diagnosis Diagnosis Name Provider Source Jul 05, 2024 03:26 PM PRIMARY Generalized anxiety disorder TODD MOY [place] [facility] [place] [facility] Jul 05, 2024 03:26 PM SECONDARY Primary insomnia TODD MOY [place] [facility] [place] [facility] Plan of Treatment: Future Appointments (+ 6 months) and Future Tests (+/- 45 days) The Plan of Treatment section includes future care activities for the patient from all [place] [facility]. This section includes future appointments and [...] 27, 2024 01:00 PM AMBULATORY - MEDICINE [place] [facility] [place] [facility] Jul 04, 2024 01:00 PM AMBULATORY - MEDICINE [place] [facility] [place] [facility] Jul 05, 2024 01:00 PM AMBULATORY - MEDICINE [place] [facility] [place] [facility] Jul 10, 2024 08:30 AM AMBULATORY - MEDICINE [place] [facility] [place] [facility] Jul 11, 2024 03:00 PM AMBULATORY - PSYCHIATRY [place] [facility] [place] [facility] Jul 31, 2024 10:30 AM AMBULATORY - NONE [place] [facility] [place] [facility] Aug 01, 2024 01:00 PM AMBULATORY - MEDICINE [place] [facility] [place] [facility] Aug 08, 2024 01:00 PM AMBULATORY - MEDICINE [place] [facility] [place] [facility] Aug 09, 2024 10:30 AM AMBULATORY - PSYCHIATRY [facility] [place] [facility] Aug 15, 2024 10:00 AM AMBULATORY - MEDICINE [facility] [place] [facility] Aug 21, 2024 02:30 PM AMBULATORY - MEDICINE [facility] [place] [facility] Aug 29, 2024 09:30 AM AMBULATORY - MEDICINE [facility] [place] [facility] Aug 30, 2024 01:00 PM AMBULATORY - MEDICINE [facility] [place] [facility] Sep 12, 2024 01:45 PM AMBULATORY - MEDICINE [facility] [place] [facility] Sep 14, 2024 10:30 AM AMBULATORY - PSYCHIATRY [facility] [place] [facility] Sep 14, 2024 11:30 AM AMBULATORY - MEDICINE [facility] [place] [facility] Sep 18, 2024 11:30 AM AMBULATORY - MEDICINE [facility] [place] [facility] Sep 18, 2024 11:31 AM AMBULATORY - MEDICINE [facility] [place] [facility] Sep 19, 2024 02:30 PM AMBULATORY - MEDICINE [facility] [place] [facility] Sep 22, 2024 09:00 AM AMBULATORY - PSYCHIATRY [facility] [place] [facility] Lab Results: +/- 30 days [...] Type Comment Jul 04, 2024 07:55 AM [place] [facility] [place] [facility] METHADONE SCREEN URINE Specimen Type: URINE Comment: NATO test are qualitative, any L or H flags only indicate a VA alert was sent. Ordering Provider: CESAR LOYA Report Released Date/Time: Apr 20, 2024 08:58 AM Reporting [facility] [place] [address] [address] Performing Lab: [facility] [address] [facility] [address] METHADONE SCREEN None detected(Negative) L Negative Jul 04, 2024 07:55 AM [facility] ALCOHOL, ETHYL URINE PANEL URINE [...] 20, 2024 08:58 AM Reporting Lab: [address] [address] Performing Lab: [address] [address] ALCOHOL, ETHYL URINE NONE-DETECTED mg/dL NONE-DETECTED, cutoff = 10 mg/dL PH, NATO 5.4 [pH] 4-10 CREATININE, NATO 123.15 mg/dL >20 SP.GRAVITY, NATO 1.026 H 1.003-1.020 Jul 04, 2024 07:55 AM [facility] FENTANYL SCREEN PANEL URINE Specimen [...] 20, 2024 08:58 AM Reporting Lab: [address] [address] Performing Lab: [address] [address] FENTANYL SCREEN NONE-DETECTED ng/mL Nega tive: Cutoff = 1.00 ng/mL PH, NATO 5.4 [pH] 4-10 CREATININE, NATO 123.70 mg/dL >20 SP.GRAVITY, NATO 1.026 H 1.003-1.020 Jul 04, 2024 07:55 AM [facility] AMPHETAMINES SCREEN PANEL URINE Specimen [...] 20, 2024 08:58 AM Reporting Lab: [address] [address] Performing Lab: [address] [address] AMPHETAMINES SCREEN NONE-DETECTED None-D etected, Cutoff = 1000 ng/mL PH, NATO 5.4 [pH] 4-10 CREATININE, NATO 123.15 mg/dL >20 SP.GRAVITY, NATO 1.026 H 1.003-1.020 Jul 04, 2024 07:55 AM [facility] BENZODIAZEPINES SCREEN PANEL URINE Specimen [...] 20, 2024 08:58 AM Reporting Lab: [address] [address] Performing Lab: [address] [place] [address] BENZODIAZEPINES SCREEN NONE-DETECTED Non e-Detected, Cutoff = 200 ng/mL PH, NATO 5.4 [pH] 4-10 CREATININE, NATO 123.15 mg/dL >20 SP.GRAVITY, NATO 1.026 H 1.003-1.020 Jul 04, 2024 07:55 AM [facility] BUPRENORPHINE SCREEN PANEL URINE Specimen [...] 20, 2024 08:58 AM Reporting Lab: [address] [address] Performing Lab: [address] [address] BUPRENORPHINE (URINE) NONE-DETECTED None Detected, Cutoff = 10.0 ng/mL PH, NATO 5.4 [pH] 4-10 CREATININE, NATO 123.15 mg/dL >20 SP.GRAVITY, NATO 1.026 H 1.003-1.020 Jul 04, 2024 07:55 AM [facility] COCAINE SCREEN PANEL URINE Specimen [...] 20, 2024 08:58 AM Reporting Lab: [address] [address] Performing Lab: [address] [address] COCAINE SCREEN NONE-DETECTED None-Detect ed,Cutoff = 300 ng/mL PH, NATO 5.4 [pH] 4-10 CREATININE, NATO 123.15 mg/dL >20 SP.GRAVITY, NATO 1.026 H 1.003-1.020 Jul 04, 2024 07:55 AM [facility] CANNABINOIDS SCREEN PANEL URINE Specimen Type [...] 20, 2024 08:58 AM Reporting Lab: [address] [address] Performing Lab: [address] [address] CANNABINOIDS SCREEN NONE-DETECTED None-D etected,Cutoff = 50 ng/mL PH, NATO 5.4 [pH] 4-10 CREATININE, NATO 123.15 mg/dL >20 SP.GRAVITY, NATO 1.026 H 1.003-1.020 Jul 04, 2024 07:55 AM [facility] OPIATES SCREEN PANEL URINE Specimen Type: URI [...] 20, 2024 08:58 AM Reporting Lab: [address] [address] Performing Lab: [facility] [address] [facility] [address] OPIATES SCREEN NONE-DETECTED None-Detect ed, Cutoff = 300 ng/mL PH, NATO 5.4 [pH] 4-10 CREATININE, NATO 123.15 mg/dL >20 SP.GRAVITY, NATO 1.026 H 1.003-1.020 Jul 04, 2024 07:55 AM [facility] OXYCODONE SCREEN PANEL URINE Specimen [...] Apr 20, 2024 08:58 AM Reporting Lab: [facility] [address] [facility] [address] Performing Lab: [address] [address] OXYCODONE SCREEN NONE-DETECTED None-Dete cted, Cutoff = 100 ng/mL PH, NATO 5.4 [pH] 4-10 CREATININE, NATO 123.15 mg/dL >20 SP.GRAVITY, NATO 1.026 H 1.003-1.020 Jul 04, 2024 07:51 AM [facility] [id number] PGx BLOOD Specimen Type: BLOOD Comment: shipped on manifest [id number] Ordering Provider: AYNCY MOY Report Released Date/Time: Apr 24, 2024 12:11 PM Reporting Lab: [facility] [address] [facility] [address] Performing Lab: [facility] [address] [facility] [address] [id number] PGx comment Jul 04, 2024 07:51 AM [facility] LIVER FUNCTION SERUM Specimen Type: SERUM No comment entered. Ordering Provider: MELBA DOE Report Released Date/Time: Jan 06, 2024 03:34 PM Reporting Lab: [facility] [address] [facility] [address] Performing Lab: [address] [address] PROTEIN,TOTAL 6.8 g/dL 6.0-8.3 ALBUMIN 4.2 g/dL 3.5-5.0 ALKALINE PHOSPHATASE 84 U/L 40-150 AST 19 U/L 5-34 ALT 27 U/L BILIRUBIN, TOTAL 0.3 mg/dL 0.2-1.2 Jul 04, 2024 07:51 AM [facility] BASIC METABOLIC PANEL (fasting) SERUM Specime n Type: SERUM No comment entered. Ordering Provider: MELBA DOE Report Released Date/Time: Jan 06, 2024 03:34 PM Reporting Lab: [facility] [address] [facility] [address] Performing Lab: [address] [address] UREA NITROGEN 13 mg/dL 7-25 GLUCOSE 123 mg/dL H 65-100 SODIUM 138 mmol/L 135-145 POTASSIUM 4.7 mmol/L 3.5-5.0 CHLORIDE 103 mmol/L 100-110 CO2 27 meq/L 20-30 CREATININE, Serum 0.93 mg/dL 0.50-1.40 eGFR(CKD-EPI 2020) 89 mL/min >60 Jul 04, 2024 07:51 AM [facility] CBC BLOOD Specimen Type: BLOOD No comment entered. Ordering Provider: MELBA DOE Report Released Date/Time: Jan 06, 2024 03:34 PM Reporting Lab: [facility] [address] [facility] [address] Performing Lab: [address] [address] WBC 6.85 10*3/uL 4.50-11.00 RBC 4.76 10*6/uL [...] VA-TOBACCO NEVER USED [facility] [place] [facility] Encounter Notes: All associated encounter [...] Anxiety Disorder with Panic Attacks presents for [facility] Follow-Up appointment. Last seen by This Provider on 05/22/24 With regards to mood [place] reports that Everything's too crazy feels that this will be her last Justine (due to cirrhosis and difficulty obtaining liver transplant) Attending to his 's medical needs has been exhausting and stressful as has attending to her personal care needs as [place] continues to grapple with chronic pain and [...] stressful situations more tolerable. Denies side effects [place] explicitly and convincingly denied SI, intent or [...] Remote Allergy/ADR Data available for this patient [facility] No Known Allergies [...] presents as polite, cooperative and treatment motivated [place] notes modest benefit from pregabalin and denies [...] Provider can be contacted at , EXT [id number] or via Secure Messaging. We have reviewed the Crisis Hotline (196, dial #1 for line), and the has [...] court of law and presented to a district court judge), and DOD access for active-duty [...] of active outpatient prescriptions dispensed from this [facility] (local) and dispensed from another [facility] or [facility] facility (remote) as well as inpatient orders [...] Nurse Practitioner Signed: 06/20/2024 13:14 YANCY MOY [facility]
--- OUTSIDE RECORDS SUMMARY | 2024-11-06 17:34 | XMS_ITS | Encounter Summary ---
Author Name [facility] [place] [place] Organization [facility] [place] Address [address] [place] [id number] Care Team Providers Care Auto Bumper Straightener Name Role Phone NADER MELBA Primary Care [...] PART B Feb 24, 2020 PART B [id number] STAR DOUGHERTY JR PATIENT MEDICARE (WNR) MEDICARE (M) PART B Feb 24, 2020 PART B [id number] DOUGHERTY STAR PATIENT MEDICARE (WNR) MEDICARE (M) PART A November 24, 2019 PART A [id number] DOUGHERTY STAR PATIENT MEDICARE (WNR) MEDICARE (M) PART A November 24, 2019 PART A [id number] [phone] LADONNA COLEMAN EDLYNNE PATIENT OFFICE OF REGIONAL QUILL STRIPPER NO-FAULT INSURANCE NO FAULT May 12, 2022 NO FAULT [id number] [phone] LADONNA COLEMANSTAR PATIENT FOR LIFE SUPPLEMEN QI TFL Feb 24, 2020 FOR LIFE [id number] ROSALES DOUGHERTY PATIENT FOR LIFE TFL* Feb 24, 2020 [id number] STAR DOUGHERTY JR PATIENT Selected Encounter This section includes the information on record at [place] for the Encounter. Date/Time Encounter Type Encounter Description Reason Provider Source Jan 19, 2024 08:30 AM OFFICE O/P EST MOD 30 MIN [facility] - IND ICD-10-CM F41.9 Anxiety disorder, unspecified TODD MOY IHCarlin Encounter Template Text not used by [place] Assessments - Encounter Diagnoses This section includes the primary and secondary diagnoses documented for the Encounter. Date/Time Primary/Secondary Diagnosis Diagnosis Name Provider Source Mar 22, 2024 09:31 AM PRIMARY Anxiety disorder, unspecified TODD MOY [facility] [place] [facility] Plan of Treatment: Future Appointments (+ 6 months) and Future Tests (+/- 45 days) The Plan of Treatment section includes [facility] care [facility] the [facility]. This section includes future appointments and future [...] 25, 2024 09:30 AM AMBULATORY - MEDICINE [facility] [place] [facility] Feb 01, 2024 09:30 AM AMBULATORY - MEDICINE [facility] [place] [facility] Feb 02, 2024 11:00 AM AMBULATORY - PSYCHIATRY [facility] [place] [facility] Feb 02, 2024 12:30 PM AMBULATORY - MEDICINE [facility] [place] [facility] Feb 10, 2024 11:15 AM AMBULATORY - REHAB MEDICIN E [facility] [place] [facility] Feb 14, 2024 09:30 AM AMBULATORY - MEDICINE [facility] [place] [facility] Feb 14, 2024 10:00 AM AMBULATORY - MEDICINE [facility] [place] [facility] Mar 01, 2024 09:00 AM AMBULATORY - PSYCHIATRY [facility] [place] [facility] Mar 02, 2024 11:00 AM AMBULATORY - MEDICINE [facility] [place] [facility] Mar 13, 2024 08:00 AM AMBULATORY - MEDICINE [facility] [place] [facility] Mar 15, 2024 10:30 AM AMBULATORY - MEDICINE [facility] [place] [facility] Mar 20, 2024 10:00 AM AMBULATORY - MEDICINE [facility] [place] [facility] Mar 22, 2024 10:45 AM AMBULATORY - MEDICINE [facility] C [facility] [place] [facility] Mar 22, 2024 11:00 AM AMBULATORY - PSYCHIATRY [facility] [place] [facility] Mar 28, 2024 09:00 AM AMBULATORY - PSYCHIATRY [facility] [place] [facility] Mar 29, 2024 09:00 AM AMBULATORY - MEDICINE [facility] [place] [facility] Mar 30, 2024 09:00 AM AMBULATORY - MEDICINE [facility] [place] [facility] Apr 12, 2024 11:00 AM AMBULATORY - MEDICINE [facility] [place] [facility] Apr 14, 2024 08:30 AM AMBULATORY - MEDICINE [facility] [place] [facility] Apr 18, 2024 08:00 AM AMBULATORY - MEDICINE [facility] [place] [facility] Active, Pending, and Scheduled Orders [...] Chemistry Order LIPID PANEL FASTING BLOOD (SST-SERUM) [facility] [place] [facility] Jan 06, 2024 12:00 AM Laboratory - Chemistry Order OCCULT BLOOD FIT X1 SCREEN(IN-HOUSE) STOOL FECES [facility] [place] [facility] Jan 19, 2024 12:00 AM Laboratory - Chemistry Order HEMOGLOBIN A1C PANEL BLOOD (LAV-BLOOD) [facility] Jan 19, 2024 12:00 AM Laboratory - Chemistry Order BASIC METABOLIC PANEL (non-fasting) BLOOD (SST-SERUM) [facility] Jan 19, 2024 12:00 AM Laboratory - Chemistry Order LIVER FUNCTION BLOOD (SST-SERUM) [facility] Jan 19, 2024 12:00 AM Laboratory - Chemistry Order TSH BLOOD (SST-SERUM) [facility] Jan 19, 2024 12:00 AM Laboratory - Chemistry Order CBC AND DIFF (AUTO) BLOOD (LAV-BLOOD) [facility] Jan 19, 2024 12:00 AM Laboratory - Chemistry Order LIPID PANEL, NON FASTING BLOOD (SST-SERUM) [facility] Social History: Smoking Status [...] 04, 2021 02:56 PM VA-TOBACCO NEVER USED [facility] Encounter Notes: All associated encounter notes This section contains the clinical notes associated to the Encounter. Date/Time Encounter Note(s) Provider Source Jan 19, 2024 08:46 AM PRIMARY CARE NURSE PRACTITIONER OUTPATIENT NOTE: LOCAL TITLE: NURSE PRACTITIONER OUTPATIENT NOTE STANDARD TITLE: PRIMARY CARE NURSE PRACTITIONER OUTPATIENT NOTE DATE OF NOTE: JAN 19, 2024@08:46 ENTRY DATE: JAN 19, 2024@08:46:47 AUTHOR: YANCY MOY: URGENCY: STATUS: COMPLETED OUTPATIENT MENTAL HEALTH CLINIC: FOLLOW-UP HPI: STAR DOUGHERTY JR, a 68 y/o male [place] previously diagnosed with Generalized Anxiety Disorder with Panic Attacks presents for [facility] Follow-Up appointment. Last seen by This Provider on 11/17/23 [place] reports mood as pretty good. Feels that [...] to potentially hazardous s 09/23/2023 ALISHA DAVISON A Cervical radiculopathy M54.12 08/12/2023 MARIBEL SHAFER Tinnitus H93.19, Onset 05/31/2023November,BERTO Johnson Pain R52., Onset 05/31/2023November,BERTO Johnson Anxiety F41.9, Onset 09/04/2021November,BERTO Johnson Benign prostatic hyperplasia N40.1, 06/16/2023 FURCOLO,MELBA ALLERGIES: Data on this list may not be complete. Please check JLV. FACILITY ALLERGY/ADR -------- No Remote Allergy/ADR Data available for this patient [facility] [place] [facility] No Known Allergies MEDICATIONS: reviewed [...] gabapentin which was of no discernible benefit. [place] agrees that QUETIAPINE has been at least marginally beneficial for sleep initiation and in reducing symptoms of anxiety. Denies sedation or other side effects at current dose. Given that [place] has derived limited benefit from alternative anxiolytics [...] Provider can be contacted at , [phone] or via Secure Messaging. 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 CODING: Total time today was 30 minutes, which included an in-person visit with the patient, providing counseling and education, and time spent reviewing the record, ordering meds, completing documentation, and coordinating care. CLINICAL REMINDERS: MH AIMS Testing: AIMS (Mental Health Instrument) The [...] this [place] (local) and dispensed from another VA or [...] Nurse Practitioner Signed: 01/19/2024 09:29 YANCY MOY [facility]
--- OUTSIDE RECORDS SUMMARY | 2024-11-06 17:34 | XMS_ITS | Encounter Summary ---
Author Name [facility] [place] Organization [place] Address [address] [place] [id number] Care Team Providers Care Broadcast Journalist Name Role Phone NADERNALLELY Primary Care Provider [...] PART B Feb 24, 2020 PART B [id number] SULEIMAN VICTORIA JR PATIENT MEDICARE (WNR) MEDICARE (M) PART B Feb 24, 2020 PART B [id number] SULEIMAN VICTORIA JR PATIENT MEDICARE (WNR) MEDICARE (M) PART A November 24, 2019 PART A [id number] SULEIMAN VICTORIA JR PATIENT MEDICARE (WNR) MEDICARE (M) PART A November 24, 2019 PART A [id number] SULEIMAN VICTORIA JR PATIENT OFFICE OF REGIONAL HOSPICE OFFICE COORDINATOR NO-FAULT INSURANCE NO FAULT May 12, 2022 NO FAULT [id number] LADONNA SULEIMAN PATIENT FOR LIFE SUPPLEMEN QI TFL Feb 24, 2020 FOR LIFE [id number] ROSALES VICTORIA PATIENT FOR LIFE TFL* Feb 24, 2020 [id number] SULEIMAN VICTORIA JR PATIENT Selected Encounter This section includes the information on record at [place] for the Encounter. Date/Time Encounter Type Encounter Description Reason Provider Source Oct 23, 2024 02:00 PM PSYTX W PT 45 MINUTES MENTAL [facility]ALTH CLINIC - IND ICD-10-CM F41.9 Anxiety disorder, unspecified MALINOFSKY,TER LILI IHE Encounter Template Text not used by [place] Assessments - Encounter Diagnoses This section includes the primary and secondary diagnoses documented for the Encounter. Date/Time Primary/Secondary Diagnosis Diagnosis Name Provider Source Oct 24, 2024 11:20 AM PRIMARY Anxiety disorder, unspecified MALINOFSKY,TER LILI [facility] [place] [facility] Oct 24, 2024 11:20 AM SECONDARY Pain, unspecified MALINOFSKY,TER LILI [facility] [place] [facility] Plan of Treatment: Future Appointments [...] Appointment Type Appointme nt Facility Name Oct 27, 2024 10:30 AM AMBULATORY - PSYCHIATRY [facility] [place] [facility] Oct 30, 2024 02:00 PM AMBULATORY - PSYCHIATRY [facility] [place] [facility] Nov 09, 2024 01:30 PM AMBULATORY - MEDICINE [facility] [place] [facility] Nov 21, 2024 10:00 AM AMBULATORY - MEDICINE [facility] [place] [facility] November 27, 2024 02:00 PM AMBULATORY - PSYCHIATRY [facility] [place] [facility] December 04, 2024 10:30 AM AMBULATORY - PSYCHIATRY [facility] [place] [facility] December 22, 2024 10:30 AM AMBULATORY - NONE [facility] [place] [facility] Dec 26, 2024 09:00 AM AMBULATORY - MEDICINE [place] C NTRL TRN [facility] Jan 08, 2025 01:00 PM [facility] Active, Pending, and Scheduled Orders [...] Consult Order REHAB MEDI CINE/[facility] OUTPT Cons Call Center [facility] Oct 25, 2024 11:49 AM Consult Order TBI OPTOME TRY INPT Cons Call Center [facility] Social History: Smoking Status (Most [...] 08:30 AM VA-TOBACCO NEVER U SED CIGARETTES [facility] Tobacco Use History This section includes a history of the smoking, or tobacco-related health factors, that were collected on or before the date of the Encounter. The data comes from the [place] facility where the Encounter took place. Date/Time Smoking Status/Tobacco Use Comment F acility Jul 10, 2024 08:30 AM VA-TOBACCO NEVER U SED OTHER TYPE [facility] Sep 04, 2021 02:56 PM [facility]BACCO [facility] Encounter Notes: All associated encounter notes This section contains the clinical notes associated to the Encounter. Date/Time Encounter Note(s) Provider Source Oct 23, 2024 02:00 PM PSYCHOLOGY NOTE: LOCAL TITLE: PSYCHOLOGY NOTE STANDARD TITLE: PSYCHOLOGY NOTE DATE OF NOTE: OCT 23, 2024@14:00 ENTRY DATE: OCT 23, 2024@14:15:11 AUTHOR: GIN OCAMPO COSIGNER: URGENCY: STATUS: COMPLETED BEHAVIORAL OBSERVATIONS: Suleiman Victoria Jr ( 1955, age 68 showed up for today's psychotherapy session with no recollection at all of the previous session we had, just one week ago. Last week, I offered to write down what we had discussed, and he said it was not necessary, that he would remember. He did not remember. He walked in stiffly today and looked as if in pain. INTERVIEW: He mentioned his understanding today, from the [facility] program that when his anxiety is high, his pain goes up. INTERVENTION: After doing some mindful muscle tension release today, we used our session in shared decision-making to come up with the following plan. I wrote down the plan on a card for him. PLAN: A. He has wanted his daughter Nallely Victoria (tel. [phone]) to be listed in the cprs chart as his healthcare proxy. [I do not see her name on the face page and will request that it be entered for him.] B. I suggest behavioral optometry exam, as states he has depth perception problems for close and far range. I suspect that some of the neck stiffness is related to his vision disturbance as he stiffens up when trying to focus. He agreed to this. I will request the consult. C. He will start attending a yoga/relaxation group led by Sindy Banks DPT, on telehealth. His son will set up the computer for him. This is already scheduled. D. He will do simple activity that he enjoys on his workbench, for which he has the tools. He will stand up every few minutes to move around. OTHER PLAN: TW will do a brief screen of his cognition/memory. SUMMARY: [place] demonstrates memory and executive function issues, that make make him anxious when he feels he is having too many choices: it feels chaotic . I put today's agreed-upon plan, on a card for him. RETURN TO CLINIC: October 30 and November 27. Related to: Service Connected Condition Diagnoses: Anxiety ([facility] [id number]) - Anxiety disorder, unspecified (ICD-10-CM F41.9) (Primary) Pain (SCT [id number]) - Pain, unspecified (ICD-10-CM R52.) Procedures: Psychotherapy 38-52 min - Synchronous Telemedicine Service - Clinical Psychologist /monisha/ GIN OCAMPO,PhD Neuropsychologist Signed: 10/24/2024 11:20 Receipt Acknowledged By: 10/24/2024 12:23 /monisha/ YANCY MOY Psychiatric Mental Health Nurse Practitioner GIN OCAMPO [facility]L [facility] Oct 20, 2024 09:00 AM CLERICAL NOTE: LOCAL TITLE: APPOINTMENT NO SHOW STANDARD TITLE: CLERICAL NOTE DATE OF NOTE: OCT 20, 2024@09:00 ENTRY DATE: OCT 23, 2024@15:07:30 AUTHOR: GIN OCAMPO EXP COSIGNER: URGENCY: STATUS: COMPLETED Patient Name: SULEIMAN VICTORIA JR Patient SSN: [id number] Date and time of Appointment No show : 10/23/24 14:00 PATIENT PHONE - PHONE NUMBER [CELLULAR] - NONE FOUND Patient's medical record was reviewed. Follow-up actions were determined and initiated: Please check/complete as applies: [ ]Telephoned Directly [ ]Re-scheduled for next available appt [ ]Sent a N0-show letter ( must call for appointment) [ ]Other (Emergent/Overbook, etc.): Additional Comments: Discussed this NS with [place] today. He said the group is too early in the morning for him. But, he would like to have the option to show up on an occasional basis. No scheduling therefore. He can show up on his own, and then included when and if he shows up. Future Clinic Visits 10/27/2024 10:30 [facility] COLLABORATING SUPERVISING PHYSICIAN 1 10/30/2024 14:00 [facility] PSYLG 6 11/02/2024 11:00 [facility] MED REHAB PA 1 11/09/2024 13:30 [facility] ACUPUNCTURE R1 1 11/21/2024 10:00 [facility] ACUPUNCTURE R2 1 01/08/2025 13:00 [facility] PACT EIGHT MD /monisha/ GIN OCAMPO,PhD Neuropsychologist Signed: 10/23/2024 15:09 [facility]IN [facility]PO [facility]
--- OUTSIDE RECORDS SUMMARY | 2024-11-06 17:34 | XMS_ITS ---
Author Name [facility] [place] Address [address] [place] [address] Care Team Providers Care Machine Set Up Name Role Phone NADERMELBA Primary Care Provider [...] PART B Feb 24, 2020 PART B [id number] [phone] STAR DOUGHERTY JR PATIENT MEDICARE (WNR) MEDICARE (M) PART B Feb 24, 2020 PART B [id number] STAR DOUGHERTY JR PATIENT MEDICARE (WNR) MEDICARE (M) PART A November 24, 2019 PART A [id number] [phone] STAR DOUGHERTY JR PATIENT MEDICARE (WNR) MEDICARE (M) PART A November 24, 2019 PART A [id number] STAR DOUGHERTY JR 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 Date/Time Encounter Type Encounter Description Reason Provider Source December 06, 2023 09:30 AM SELF CARE [facility]NG[facility] ICD-10-CM G89.29 Other chronic pain CRIS STRICKLAND [facility] Encounter Template Text not used by [place] Assessments - Encounter Diagnoses This section includes the primary and secondary diagnoses documented for the Encounter. Date/Time Primary/Secondary Diagnosis Diagnosis Name Provider Source Mar 19, 2024 11:48 AM PRIMARY Other chronic pain CRIS LAWTON [place] [facility] [place] [facility] Plan of Treatment: Future Appointments (+ 6 months) and Future Tests (+/- 45 days) The Plan of Treatment section includes future care activities for the [facility] [place] [facility] This section includes future appointments [...] - MEDICINE [place] [facility] [place] [facility] December 09, 2023 03:00 PM AMBULATORY - MEDICINE [place] [facility] [place] [facility] December 14, 2023 10:30 AM AMBULATORY - MEDICINE [place] [facility] [place] [facility] December 14, 2023 01:00 PM AMBULATORY - MEDICINE [place] [facility] [place] [facility] December 16, 2023 08:30 AM AMBULATORY - MEDICINE [place] [facility] [place] [facility] Dec 28, 2023 11:00 AM AMBULATORY - MEDICINE [place] [facility] [place] [facility] Dec 29, 2023 10:00 AM AMBULATORY - MEDICINE [place] [facility] [place] [facility] Dec 29, 2023 11:00 AM AMBULATORY - MEDICINE [place] [facility] [place] [facility] Jan 06, 2024 02:30 PM AMBULATORY - MEDICINE [place] [facility] [place] [facility] Jan 06, 2024 03:45 PM AMBULATORY - MEDICINE [place] [facility] [place] [facility] Jan 14, 2024 12:45 PM AMBULATORY - MEDICINE [facility] [place] [facility] Jan 18, 2024 08:00 AM AMBULATORY - MEDICINE [facility] [place] [facility] Jan 19, 2024 08:30 AM AMBULATORY - PSYCHIATRY [facility] [place] [facility] Jan 25, 2024 09:30 AM AMBULATORY - MEDICINE [facility] [place] [facility] Feb 01, 2024 09:30 AM AMBULATORY - MEDICINE [facility] [place] [facility] Feb 02, 2024 11:00 AM AMBULATORY - PSYCHIATRY [facility] [place] [facility] Feb 02, 2024 12:30 PM AMBULATORY - MEDICINE [facility] [place] [facility] Feb 10, 2024 11:15 AM AMBULATORY - REHAB MEDICIN E [facility] [place] [facility] Feb 14, 2024 09:30 AM AMBULATORY - MEDICINE [facility] [place] [facility] Feb 14, 2024 10:00 AM AMBULATORY - MEDICINE [facility] [place] [facility] Active, Pending, and Scheduled [...] FASTING BLOOD (SST-SERUM) [facility] [place] [facility] Jan 06, 2024 12:00 AM Laboratory - Chemistry Order OCCULT BLOOD FIT X1 SCREEN(IN-HOUSE) STOOL FECES [facility] [place] [facility] Jan 19, 2024 12:00 AM Laboratory - Chemistry Order HEMOGLOBIN A1C PANEL BLOOD (LAV-BLOOD) [facility] [place] [facility] Jan 19, 2024 12:00 AM Laboratory - Chemistry Order BASIC METABOLIC PANEL (non-fasting) BLOOD (SST-SERUM) [facility] Jan 19, 2024 12:00 AM Laboratory - Chemistry Order TSH BLOOD (SST-SERUM) [facility] Jan 19, 2024 12:00 AM Laboratory - Chemistry Order LIVER FUNCTION BLOOD (SST-SERUM) [facility] Jan 19, 2024 12:00 AM Laboratory - Chemistry Order CBC AND DIFF (AUTO) BLOOD (LAV-BLOOD) [facility] Jan 19, 2024 12:00 AM Laboratory - Chemistry Order LIPID PANEL, NON FASTING BLOOD (SST-SERUM) [facility] Social History: Smoking Status [...] 04, 2021 02:56 PM VA-TOBACCO NEVER USED [facility] Encounter Notes: All associated encounter [...] INTERDISCIPLINARY PAIN TEAM (IPT) PHYSICAL THERAPIST NOTE: [place] attended an Interdisciplinary Pain Team (IPT) follow-up [...] audiofile daily, prioritizing Alpha- Stim. -Vet reports [facility] discontinued care, [facility]. He reports trP injections to his upper traps and periscap region provided short-term relief, he would like to discuss resuming these with Dr. Graves. -He complete PT for his neck at [facility]. Reports he's doing his prescribed HEP [...] (reframing thoughts) and #3 (self-soothing). *Referral to [place] Physical Therapy to address low back pain. *Follow-up with Dr. Graves to consider resuming trP injections. *Gerofit referral, vet seeking open gym support to start. *Referral for Biofeedback. *Proceed with [facility] psychotherapy for anxiety once scheduled. The following treatment options were discussed, but [place] declined at this time. He may wish to consider them in the future: *CBT-CP and/or Active Management of Pain group. /monisha/ CRIS LAWTON DPT PHYSICAL THERAPIST Signed: 12/06/2023 11:47 Receipt Acknowledged By: 12/06/2023 12:00 /monisha/ YAMILE EVANGELISTA, PH.D. CLINICAL HEALTH PSYCHOLOGIST * AWAITING SIGNATURE * NIMO GRAVES JENNIFER KALLIE 12/07/2023 ADDENDUM STATUS: COMPLETED Recommend Biofeedback for Pain consult. Thank you. /monisha/ YAMILE EVANGELISTA, PH.D. CLINICAL HEALTH PSYCHOLOGIST Signed: 12/07/2023 07:53 CRIS LAWTON [place] [facility] [place] [facility] December 06, 2023 09:30 AM PAIN TEAM NOTE: LOCAL TITLE: INTERDISCIPLINARY PAIN TEAM (IPT) PHYSICAL THERAPIS STANDARD TITLE: PAIN TEAM NOTE DATE OF NOTE: DECEMBER 06, 2023@09:30 ENTRY DATE: DECEMBER 06, 2023@10:36:46 AUTHOR: CRIS LAWTON EXP COSIGNER: URGENCY: STATUS: COMPLETED INTERDISCIPLINARY PAIN TEAM (IPT) PHYSICAL THERAPIST NOTE Has ADDENDA [place] attended an Interdisciplinary Pain Team (IPT) follow-up [...] his mental health prescriber to treat anxiety. Codiet shares he hasn't noticed a difference yet, [...] using the audiofile daily, prioritizing Alpha- Stim. -Hu reports [facility] discontinued care, [facility]. He reports trP injections to his upper traps and periscap region provided short-term relief, he would like to discuss resuming these with Dr. Graves. -He complete PT for his neck at [facility]. Reports he's doing his prescribed HEP [...] Through shared-decision making in collaboration with the [place], considering clinical judgment, patient preference, and evidence-based [...] (reframing thoughts) and #3 (self-soothing). *Referral to [place] Physical Therapy to address low back pain. *Follow-up with Dr. Graves to consider resuming trP injections. *Gerofit referral, vet seeking open gym support to start. *Referral for Biofeedback. *Proceed with CC psychotherapy for anxiety once scheduled. The following treatment options were discussed, but declined at this time. He may wish to consider them in the future: *CBT-CP and/or Active Management of Pain group. /monisha/ CRIS LAWTON DPT PHYSICAL THERAPIST Signed: 12/06/2023 11:47 Receipt Acknowledged By: 12/06/2023 12:00 /monisha/ YAMILE EVANGELISTA, PH.D. CLINICAL HEALTH PSYCHOLOGIST 02/01/2024 10:47 /monisha/ NIMO GRAVES DO APARTMENT LEASING CONSULTANT 12/07/2023 ADDENDUM STATUS: COMPLETED Recommend Biofeedback for Pain consult. Thank you. /monisha/ YAMILE EVANGELISTA, PH.D. CLINICAL HEALTH PSYCHOLOGIST Signed: 12/07/2023 07:53 12/07/2023 ADDENDUM STATUS: COMPLETED Requesting PCP place Gerofit consult if in agreement, thank you. /monisha/ CRIS LAWTON DPT PHYSICAL THERAPIST Signed: 12/07/2023 08:12 Receipt Acknowledged By: 12/07/2023 09:28 /monisha/ KIMBERLY BARRAZA RN REGISTERED NURSE 12/07/2023 ADDENDUM STATUS: COMPLETED ALERT TO PCP for consideration of GEROFIT consult, this global technical writer unable to place consult /monisha/ KIMBERLY BARRAZA, BRITTANY REGISTERED NURSE Signed: 12/07/2023 09:29 CRIS LAWTON [facility]
--- OUTSIDE RECORDS SUMMARY | 2024-11-06 17:34 | XMS_ITS ---
Author Name [facility] Organization 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 Date/Time Encounter Type Encounter Description Reason Provider Source Sep 22, 2024 09:00 AM GROUP PSYCHOTHERAPY MENTAL [facility] CLINIC-GROUP ICD-10-CM R52 Pain, unspecified MALINOFSKY,TE ANGELINA IHE Encounter Template Text not used by [place] Assessments - Encounter Diagnoses This section includes the primary and secondary diagnoses documented for the Encounter. Date/Time Primary/Secondary Diagnosis Diagnosis Name Provider Source Oct 10, 2024 04:44 PM PRIMARY Pain, unspecified MALINOFSKY,TER LILI [facility] [place] [facility] Oct 10, 2024 04:44 PM SECONDARY Anxiety disorder, unspecified MALINOFSKY,TER LILI [place] [facility] [place] [facility] Plan of Treatment: Future Appointments (+ 6 months) and Future Tests (+/- 45 days) The Plan of Treatment section includes future care activities for the patient from all [place] treatmentfacilities. This section includes future appointments and future orders which are active, pending or scheduled. Future Appointments This section includes appointments that were scheduled to occur 6 months from the date of the Encounter, up to a maximum of 20 appointments. The data comes from all [place] treatment facilities. Appointment Date/Time Appointment Type Appointme nt Facility Name Sep 25, 2024 02:45 PM AMBULATORY - MEDICINE [place] [facility] [place] [facility] Sep 29, 2024 09:00 AM AMBULATORY - PSYCHIATRY [place] [facility] [place] [facility] Oct 03, 2024 01:00 PM AMBULATORY - REHAB MEDICIN E [facility] [place] [facility] Oct 06, 2024 09:00 AM AMBULATORY - PSYCHIATRY [place] [facility] [place] [facility] Oct 06, 2024 10:00 AM AMBULATORY - MEDICINE [place] [facility] [place] [facility] Oct 09, 2024 02:00 PM AMBULATORY - REHAB MEDICIN E [facility] [place] [facility] Oct 16, 2024 02:00 PM AMBULATORY - PSYCHIATRY [place] [facility] [place] [facility] Oct 18, 2024 01:00 PM AMBULATORY - REHAB MEDICIN E [facility] [place] [facility] Oct 20, 2024 09:00 AM AMBULATORY - PSYCHIATRY [facility] [place] [facility] Oct 23, 2024 02:00 PM AMBULATORY - PSYCHIATRY [facility] [place] [facility] Oct 27, 2024 10:30 AM AMBULATORY - PSYCHIATRY [facility] [place] [facility] Oct 30, 2024 02:00 PM AMBULATORY - PSYCHIATRY [facility] [place] [facility] Nov 09, 2024 01:30 PM AMBULATORY - MEDICINE [facility] [place] [facility] Nov 21, 2024 10:00 AM AMBULATORY - MEDICINE [facility] [place] [facility] November 27, 2024 02:00 PM AMBULATORY - PSYCHIATRY [facility] [place] [facility] December 04, 2024 10:30 AM AMBULATORY - PSYCHIATRY [facility] [place] [facility] December 22, 2024 10:30 AM AMBULATORY - NONE [facility] [place] [facility] Dec 26, 2024 09:00 AM AMBULATORY - MEDICINE [facility] [place] [facility] Jan 08, 2025 01:00 PM AMBULATORY - MEDICINE [facility] [place] [facility] Active, Pending, and Scheduled [...] Consult Order REHAB MEDI CINE/NHM OUTPT Cons Materials Engineering Technician's Choice [place] [facility] [place] [facility] Oct 25, 2024 11:49 AM Consult Order TBI OPTOME TRY INPT Cons Materials Engineering Technician's Choice [place] [facility] [place] [facility] Social History: Smoking Status (Most [...] 08:30 AM VA-TOBACCO [facility] U SED [facility] Tobacco Use History This section includes a history of the smoking, or tobacco-related health factors, that were collected on or before the date of the Encounter. The data comes from the [place] facility where the Encounter took place. Date/Time Smoking Status/Tobacco Use Comment F acility Jul 10, 2024 08:30 AM VA-TOBACCO NEVER U SED OTHER TYPE [facility] [place] [facility] Sep 04, 2021 02:56 PM VA-TOBACCO NEVER USED [place] [facility] [place] [facility] Encounter Notes: All associated encounter notes This section contains the clinical notes associated to the Encounter. Date/Time Encounter Note(s) Provider Source Sep 22, 2024 09:00 AM PSYCHOLOGY CONSULT : LOCAL TITLE: CONSULT REPORT/MENTAL HEALTH/PSYCHOLOGY STANDARD TITLE: PSYCHOLOGY CONSULT DATE OF NOTE: SEP 22, 2024@09:00 ENTRY DATE: SEP 22, 2024@15:53:31 AUTHOR: GIN OCAMPO COSIGNER: URGENCY: STATUS: COMPLETED ART OF HAPPINESS GROUP 09/22/2024 Eight members attended today's group. TOPICS initiated by members: Sad or troubled topics: One member immediately started the group saying his ex-, only age 50, suddenly d/t pulmonary related illness. Their son, age 20, is bereft at the loss of his mother. Members were pessimistic about our country and our world, fearing because of recent decisions at the top of the government, seemingly meant to spawn fear and divisiveness, will bring even worse: much more vulnerability to terrorism and nuclear war. 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 Members were truly happy to hear this news. HEALING TOPICS initiated by residential insurance inspector and echoed by members: Healthy grief includes a process of remembering and absorbing the soothing voice and attributes of the loved one. Members all feel that the [place] people will be united in resistance. Members suggested extending, enlarging moments of happiness, whenever they can find it---whether in small things, and even upon hearing someone else's good news (like today). STAR DOUGHERTY Jr is new today. He was quiet, and he was asked early on if he wished to say something about himself, but he chose to remain quiet at that moment. He spoke up later, but not until group members were busy writing and could not pay any attention to him. He stated that his , of their 50-year marriage, is ill, and he feels sad that he cannot be of more help to her because he has physical pain. TW mentioned that a couple of other members have physical pain as well, and others have had to deal with illness (and even ) of a . Perhaps he is encouraged to return. Diagnoses: Pain (SCT [id number]) - Pain, unspecified (ICD-10-CM R52.) (Primary) Anxiety (SCT [id number]) - Anxiety disorder, unspecified (ICD-10-CM F41.9) Procedures: Group Psychotherapy - Clinical Psychologist /monisha/ GIN OCAMPO,PhD Neuropsychologist Signed: 09/24/2024 20:59 GIN OCAMPO [facility] [place]
--- OUTSIDE RECORDS SUMMARY | 2024-11-06 17:34 | XMS_ITS | Encounter Summary ---
Author Name [facility] [place] Address [address] [place] [address] Care Team Providers Care Hand Inserter Operator Name Role Phone NADER MELBA Primary [...] PART B Feb 24, 2020 PART B [id number] [phone] STAR DOUGHERTY JR PATIENT MEDICARE (WNR) MEDICARE (M) PART B Feb 24, 2020 PART B [id number] DOUGHERTY STAR PATIENT MEDICARE (WNR) MEDICARE (M) PART A November 24, 2019 PART A [id number] [phone] DOUGHERTY STAR PATIENT MEDICARE (WNR) MEDICARE (M) PART A November 24, 2019 PART A [id number] LADONNA COLEMAN EDLYNNE 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 Date/Time Encounter Type Encounter Description Reason Provider Source Feb 02, 2024 11:00 AM OFFICE O/P EST MOD 30 MIN [facility] - IND ICD-10-CM F41.9 Anxiety disorder, unspecified TODD MOY IHCarlin Encounter Template Text not used by [place] Assessments - Encounter Diagnoses This section includes the primary and secondary diagnoses documented for the Encounter. Date/Time Primary/Secondary Diagnosis Diagnosis Name Provider Source Mar 22, 2024 09:32 AM PRIMARY Anxiety disorder, unspecified TODD MOY [place] [facility] [place] [facility] Plan of Treatment: Future Appointments (+ 6 months) and Future Tests (+/- 45 days) The Plan of Treatment section includes future care activities for the patient from all [place] treatmentfacilities. This section includes future appointments and [...] REHAB MEDICIN E [facility] [place] [facility] Feb 14, 2024 09:30 AM AMBULATORY - MEDICINE [place] [facility] [place] [facility] Feb 14, 2024 10:00 AM AMBULATORY - MEDICINE [place] [facility] [place] [facility] Mar 01, 2024 09:00 AM AMBULATORY - PSYCHIATRY [place] [facility] [place] [facility] Mar 02, 2024 11:00 AM AMBULATORY - MEDICINE [place] [facility] [place] [facility] Mar 13, 2024 08:00 AM AMBULATORY - MEDICINE [place] [facility] [facility] Mar 15, 2024 10:30 AM AMBULATORY - MEDICINE [place] [facility] [facility] Mar 20, 2024 10:00 AM AMBULATORY - MEDICINE [place] [facility] [facility] Mar 22, 2024 10:45 AM AMBULATORY - MEDICINE [place] [facility] [facility] Mar 22, 2024 11:00 AM AMBULATORY - PSYCHIATRY [facility] [place] [facility] Mar 28, 2024 09:00 AM AMBULATORY - PSYCHIATRY [facility] [place] [facility] Mar 29, 2024 09:00 AM AMBULATORY - MEDICINE [facility] [facility] Mar 30, 2024 09:00 AM AMBULATORY - MEDICINE [facility] Apr 12, 2024 11:00 AM AMBULATORY - MEDICINE [facility] [facility] Apr 14, 2024 08:30 AM AMBULATORY - MEDICINE [facility] Apr 18, 2024 08:00 AM AMBULATORY - MEDICINE [facility] [facility] Apr 19, 2024 01:00 PM AMBULATORY - MEDICINE [facility] [facility] Apr 24, 2024 11:00 AM AMBULATORY - PSYCHIATRY [facility] [place] [facility] Apr 24, 2024 01:00 PM AMBULATORY - MEDICINE [facility] [facility] Apr 26, 2024 01:00 PM AMBULATORY - MEDICINE [place] [facility] [facility] Active, Pending, and Scheduled Orders This section includes a listing of several types of active, pending, and scheduled orders, including clinic medications orders, diagnostic test orders, procedure orders and consult orders; where the start date of the order is 45 days before the date of the Encounter or 45 days after the date of theEncounter. The data comes from all [place] treatment facilities. Test Date/Time Test Type Test Details Facility Name December 23, 2023 12:00 AM Laboratory - Chemistry Order LIPID PANEL FASTING BLOOD (SST-SERUM) [facility] [place] [facility] Jan 06, 2024 12:00 AM Laboratory - Chemistry Order OCCULT BLOOD FIT X1 SCREEN(IN-HOUSE) STOOL FECES [facility] [place] [facility] Jan 19, 2024 12:00 AM Laboratory - Chemistry Order HEMOGLOBIN A1C PANEL BLOOD (LAV-BLOOD) [facility] Jan 19, 2024 12:00 AM Laboratory - Chemistry Order BASIC METABOLIC PANEL (non-fasting) BLOOD (SST-SERUM) [facility] Jan 19, 2024 12:00 AM Laboratory - Chemistry Order LIVER FUNCTION BLOOD (SST-SERUM) [facility] Jan 19, 2024 12:00 AM Laboratory - Chemistry Order TSH BLOOD (SST-SERUM) [facility] Jan 19, 2024 12:00 AM Laboratory - Chemistry Order CBC AND DIFF (AUTO) BLOOD (LAV-BLOOD) [facility] Jan 19, 2024 12:00 AM Laboratory - Chemistry Order LIPID PANEL, NON FASTING BLOOD (SST-SERUM) [facility] Social History: Smoking Status (Most [...] 04, 2021 02:56 PM VA-TOBACCO NEVER USED [facility] Encounter Notes: All associated encounter notes This section contains the clinical notes associated to the Encounter. Date/Time Encounter Note(s) Provider Source Feb 02, 2024 11:02 AM PRIMARY CARE NURSE PRACTITIONER OUTPATIENT NOTE: LOCAL TITLE: NURSE PRACTITIONER OUTPATIENT NOTE STANDARD TITLE: PRIMARY CARE NURSE PRACTITIONER OUTPATIENT NOTE DATE OF NOTE: FEB 02, 2024@11:02 ENTRY DATE: FEB 02, 2024@11:02:56 AUTHOR: YANCY MOY: URGENCY: STATUS: COMPLETED OUTPATIENT MENTAL HEALTH CLINIC: FOLLOW-UP HPI: STAR DOUGHERTY JR, a 68 y/o male [place] previously diagnosed with Generalized Anxiety Disorder with Panic Attacks presents for [facility] Follow-Up appointment. Last seen by This Provider on 01/19/24 With regards to mood reports It's been all over the place. [...] Remote Allergy/ADR Data available for this patient [place] [facility] No Known Allergies [...] treatment and demonstration of help-seeking behaviors. IMPRESSION: [place] presents as polite, cooperative and treatment motivated [place] agrees that QUETIAPINE has been at least marginally beneficial for sleep initiation and in reducing symptoms of anxiety. Denies sedation or other side effects at current dose. Given that [place] has derived limited benefit from alternative anxiolytics [...] well as common and severe side effects. [place] comprehended all information discussed, had opportunity to ask questions which were answered to their satisfaction, and voluntarily and without duress agreed to trial as documented. CONTACT AND CRISIS INFO: informed that This Provider can be contacted at , [phone] or via Secure Messaging. 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
--- OUTSIDE RECORDS SUMMARY | 2024-11-06 17:34 | XMS_ITS | Encounter Summary ---
Author Name [facility] [place] [facility] [place] Organization [place] Address [address] [place] [id number] Care Team Providers Care Assistant Family Teacher Name Role Phone NADERNALLELY Primary Care Provider [...] PART B Feb 24, 2020 PART B [id number] STAR DOUGHERTY JR PATIENT MEDICARE (WNR) MEDICARE (M) PART B Feb 24, 2020 PART B [id number] STAR DOUGHERTY JR PATIENT MEDICARE (WNR) MEDICARE (M) PART A November 24, 2019 PART A [id number] STAR DOUGHERTY JR PATIENT MEDICARE (WNR) MEDICARE (M) PART A November 24, 2019 PART A [id number] STAR DOUGHERTY JR PATIENT OFFICE OF REGIONAL RESIDENT SERVICES COORDINATOR NO-FAULT INSURANCE NO FAULT May 12, 2022 NO FAULT [id number] DOUGHERTY STAR PATIENT FOR LIFE SUPPLEMEN QI TFL Feb 24, 2020 FOR LIFE [id number] ROSALES DOUGHERTY PATIENT FOR LIFE TFL* Feb 24, 2020 [id number] STAR DOUGHERTY JR PATIENT Selected Encounter This section includes the information on record at [place] for the Encounter. Date/Time Encounter Type Encounter Description Reason Provider Source Jan 25, 2024 09:30 AM MECHANICAL TRACTION THERAPY ASSESSMENT EXPERT ICD-10-CM M54.2 Cervicalgia MICHAEL HERNANDEZ [place] Encounter Template Text not used by [place] Assessments - Encounter Diagnoses This section includes the primary and secondary diagnoses documented for the Encounter. Date/Time Primary/Secondary Diagnosis Diagnosis Name Provider Source Mar 19, 2024 11:49 AM PRIMARY Cervicalgia MICHAEL HERNANDEZ [place] [facility] [place] [facility] Mar 19, 2024 11:49 AM SECONDARY Other low back pain MICHAEL HERNANDEZ [place] [facility] [place] [facility] Plan of Treatment: Future Appointments (+ 6 months) and Future Tests (+/- 45 days) The Plan of Treatment section includes future care activities for the patient [facility] [place] [facility] This section includes future appointments and future orders which are active, pending or scheduled. Future Appointments This section includes appointments that were scheduled to occur 6 months from the date of the Encounter, up to a maximum of 20 appointments. The data comes from all [place] treatment facilities. Appointment Date/Time Appointment Type Appointme nt Facility Name Feb 01, 2024 09:30 AM AMBULATORY - MEDICINE [facility] [place] [facility] Feb 02, 2024 11:00 AM AMBULATORY - PSYCHIATRY [place] [facility] [place] [facility] Feb 02, 2024 12:30 PM AMBULATORY - MEDICINE [place] [facility] [place] [facility] Feb 10, 2024 11:15 AM AMBULATORY - REHAB MEDICIN E [place] [facility] [place] [facility] Feb 14, 2024 09:30 AM AMBULATORY - MEDICINE [place] [facility] [place] [facility] Feb 14, 2024 10:00 AM AMBULATORY - MEDICINE [place] [facility] [place] [facility] Mar 01, 2024 09:00 AM AMBULATORY - PSYCHIATRY [place] [facility] [place] [facility] Mar 02, 2024 11:00 AM AMBULATORY - MEDICINE [place] [facility] [place] [facility] Mar 13, 2024 08:00 AM AMBULATORY - MEDICINE [place] [facility] [place] [facility] Mar 15, 2024 10:30 AM AMBULATORY - MEDICINE [place] [facility] [place] [facility] Mar 20, 2024 10:00 AM AMBULATORY - MEDICINE [place] [facility] [place] [facility] Mar 22, 2024 10:45 AM AMBULATORY - MEDICINE [place] [facility] [place] [facility] Mar 22, 2024 11:00 AM AMBULATORY - PSYCHIATRY [facility] [place] [facility] Mar 28, 2024 09:00 AM AMBULATORY - PSYCHIATRY [facility] [place] [facility] Mar 29, 2024 09:00 AM AMBULATORY - MEDICINE [place] [facility] [place] [facility] Mar 30, 2024 09:00 AM AMBULATORY - MEDICINE [place] [facility] [place] [facility] Apr 12, 2024 11:00 AM AMBULATORY - MEDICINE [place] [facility] [place] [facility] Apr 14, 2024 08:30 AM AMBULATORY - MEDICINE [place] [facility] [place] [facility] Apr 18, 2024 08:00 AM AMBULATORY - MEDICINE [place] [facility] [place] [facility] Apr 19, 2024 01:00 PM AMBULATORY - MEDICINE [place] [facility] [place] [facility] Active, Pending, and Scheduled Orders This section includes a listing of several types of active, pending, and scheduled orders, including clinic medications orders, diagnostic test orders, procedure orders and consult orders; where the start date of the order is 45 days before the date of the Encounter or 45 days after the date of theEncounter. The data comes from all [place] treatment facilities. Test Date/Time Test Type Test Details Facility Name December 23, 2023 12:00 AM Laboratory - Chemistry Order LIPID PANEL FASTING BLOOD (SST-SERUM) [facility] [place] [facility] [place] [facility] Jan 06, 2024 12:00 AM Laboratory - Chemistry Order OCCULT BLOOD FIT X1 SCREEN(IN-HOUSE) STOOL FECES [facility] [place] [facility] [place] [facility] Jan 19, 2024 12:00 AM Laboratory - Chemistry Order HEMOGLOBIN A1C PANEL BLOOD (LAV-BLOOD) [facility] [place] [facility] Jan 19, 2024 12:00 AM Laboratory - Chemistry Order BASIC METABOLIC PANEL (non-fasting) BLOOD (SST-SERUM) [facility] Jan 19, 2024 12:00 AM Laboratory - Chemistry Order TSH BLOOD (SST-SERUM) [facility] Jan 19, 2024 12:00 AM Laboratory - Chemistry Order LIVER FUNCTION BLOOD (SST-SERUM) [facility] Jan 19, 2024 12:00 AM Laboratory - Chemistry Order LIPID PANEL, NON FASTING BLOOD (SST-SERUM) [facility] Jan 19, 2024 12:00 AM Laboratory - Chemistry Order CBC AND DIFF (AUTO) BLOOD (LAV-BLOOD) [facility] Social History: Smoking Status (Most current) and Tobacco Use (All prior to encounter date) This section includes the most current, and the historical, smoking and tobacco- related health factors from the [place] facility where the Encounter took place. Current Smoking Status This section includes the most current smoking, or tobacco-related health factor, from the [place] facility where the Encounter took place. Date/Time Current Smoking Status Comment Facil [facility] Sep 04, 2021 02:56 PM VA-TOBACCO NEVER USED [facility] Encounter Notes: All associated encounter notes This section contains the clinical notes associated to the Encounter. 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 Sx aggravated by driving to [place]. Wednesday he went to [employer] and sat in a pew for 45 [...] in am Prior treatment: Physical therapy at [facility]; deep tissue massage; [place] spine.. neck therapy, massage; cortisone injections in low back R shoulder Prior rn progressive care unit - none Vet states that he has ignored the pain for quite a while. Exercise/Activities: none except yard work, stretching ; and going for a walk which is getting more difficult. He states that he is under a lot of stress. His is waiting for a liver transplant. Going to [place] for appts. Reviewed Radiologist's reports: none found [facility] MRI L/Sp Shoulder injury 1989 and he [...] D.C. CHIROPRACTOR Signed: 01/28/2024 12:44 MICHAEL HERNANDEZ [facility]
--- OUTSIDE RECORDS SUMMARY | 2024-11-06 17:34 | XMS_ITS ---
Author Name [facility] [place] Address [address] [place] [id number] Care Team Providers Care Analytical Engineer Name Role Phone NADERMELBA Primary Care [...] PART B Feb 24, 2020 PART B [id number] STAR DOUGHERTY JR PATIENT MEDICARE (WNR) MEDICARE (M) PART B Feb 24, 2020 PART B [id number] STAR DOUGHERTY JR PATIENT MEDICARE (WNR) MEDICARE (M) PART A November 24, 2019 PART A [id number] STAR DOUGHERTY JR PATIENT MEDICARE (WNR) MEDICARE (M) PART A November 24, 2019 PART A [id number] STAR DOUGHERTY JR PATIENT OFFICE OF REGIONAL JUNIOR ACCOUNT MANAGER NO-FAULT INSURANCE NO FAULT May 12, 2022 NO FAULT [id number] LADONNA STAR PATIENT FOR LIFE SUPPLEMEN QI TFL Feb 24, 2020 FOR LIFE [id number] ROSALES DOUGHERTY PATIENT FOR LIFE TFL* Feb 24, 2020 [id number] STAR DOUGHERTY JR PATIENT Selected Encounter This section includes the information on record at [place] for the Encounter. Date/Time Encounter Type Encounter Description Reason Provider Source Aug 15, 2024 10:00 AM MANUAL THERAPY 1/> [facility] ICD-10-CM M54.59 Other low back pain [facility] Encounter Template Text not used by [place] Assessments - Encounter Diagnoses This section includes the primary and secondary diagnoses documented for the Encounter. Date/Time Primary/Secondary Diagnosis Diagnosis Name Provider Source Sep 05, 2024 06:04 AM PRIMARY Other low back pain EM[facility] [place] [facility] Sep 05, 2024 06:04 AM SECONDARY Other chronic pain [facility] [place] [facility] Plan of Treatment: Future Appointments (+ 6 months) and Future Tests (+/- 45 days) The Plan of Treatment section includes future care activities for the [facility] [place] [facility] This section includes future appointments and future orders which are active, pending or scheduled. Future Appointments This section includes appointments that were scheduled to occur 6 months from the date of the Encounter, up to a maximum of 20 appointments. The data comes from all [place] treatment facilities. Appointment Date/Time Appointment Type Appointme nt Facility Name Aug 21, 2024 02:30 PM AMBULATORY [place]ICINE [place] [facility] [place] [facility] Aug 29, 2024 09:30 AM AM[place]UL[place]ORY [place] [facility] [place] [facility] Aug 30, 2024 01:00 PM AM[place]UL[place]ORY [place] [facility] [place] [facility] Sep 12, 2024 01:45 PM AMBULATORY [place]ICINE [place] [facility] [place] [facility] Sep 14, 2024 10:30 AM AMBULATORY [place]CHIATRY [place] [facility] [place] [facility] Sep 14, 2024 11:30 AM AM[place]ULATORY [place]INE [place] [facility] [place] [facility] Sep 18, 2024 11:30 AM AM[place]ULATORY [place]INE [place] [facility] [place] [facility] Sep 18, 2024 11:31 AM [place]UL[place]INE [place] [facility] [place] [facility] Sep 19, 2024 02:30 PM AMBULATORY - MEDICINE [facility] [place] [facility] Sep 22, 2024 09:00 AM AMBULATORY - PSYCHIATRY [facility] [place] [facility] Sep 25, 2024 02:45 PM AMBULATORY - MEDICINE [facility] [place] [facility] Sep 29, 2024 09:00 AM AMBULATORY - PSYCHIATRY [facility] [place] [facility] Oct 03, 2024 01:00 PM AMBULATORY - REHAB MEDICIN E [facility] [place] [facility] Oct 06, 2024 09:00 AM AMBULATORY - PSYCHIATRY [facility] [place] [facility] Oct 06, 2024 10:00 AM AMBULATORY - MEDICINE [facility] [place] [facility] Oct 09, 2024 02:00 PM AMBULATORY - REHAB MEDICIN E [facility] [place] [facility] Oct 16, 2024 02:00 PM AMBULATORY - PSYCHIATRY [facility] [place] [facility] Oct 18, 2024 01:00 PM AMBULATORY - REHAB MEDICIN E [facility] [place] [facility] Oct 20, 2024 09:00 AM AMBULATORY - PSYCHIATRY [facility] [place] [facility] Oct 23, 2024 02:00 PM AMBULATORY - PSYCHIATRY [facility] [place] [facility] Active, Pending, and Scheduled Orders [...] Consult Order REHAB MEDI CINE/[facility] OUTPT Cons Ophthalmic Lens Inspector's Choice [facility] [place] [facility] Social History: Smoking Status (Most [...] 08:30 AM VA-TOBACCO NEVER U SED CIGARETTES [facility] Tobacco Use History This section includes a history of the smoking, or tobacco-related health factors, that were collected on or before the date of the Encounter. The data comes from the [place] facility where the Encounter took place. Date/Time Smoking Status/Tobacco Use Comment F acility Jul 10, 2024 08:30 AM VA-TOBACCO NEVER U SED OTHER TYPE [facility] Sep 04, 2021 02:56 PM VA-TOBACCO NEVER USED [facility] Encounter Notes: All associated encounter notes This section contains the clinical notes associated to the Encounter. Date/Time Encounter Note(s) Provider Source Aug 15, 2024 10:02 AM PHYSICAL THERAPY N OTE: LOCAL TITLE: PHYSICAL THERAPY STANDARD TITLE: PHYSICAL THERAPY NOTE DATE OF NOTE: AUG 15, 2024@10:02 ENTRY DATE: AUG 15, 2024@10:02:53 AUTHOR: EUSEBIA LAWTON EXP COSIGNER: URGENCY: STATUS: COMPLETED Initial Evaluation date: 02/10/2024 Progress Note: 05/17/24 Treatment #: 12 Treatment time: 60 Diagnosis: Other low back pain(ICD-10-CM M54.59) Provider: Dr. Roth PT Treatment Precautions: Pt identified by full name and . Active problems - Computerized Problem List is the source for the followin. Exposure to potentially hazardous substance 2. Cervical radiculopathy 3. Tinnitus 4. Pain 5. Anxiety 6. Benign prostatic hyperplasia TREATMENT PRECAUTIONS OR DAILY INSTRUCTIONS: (Vitals, surgical precautions etc.) SUBJECTIVE: They're getting better. We've cut down on the doctor visits for the . I'm being more regimented. Reducing my anxiety is reducing my pain. Even Jose F, he noticed a big turnaround. Response from previous session: no c/o increased pain Pain, verbal numeric scale 0-10: maybe a 5/10 HEP Adherence: []None []1-2x/wk []3-4x/wk []5-6x/wk []Daily *Stationary bike -- states that's kind of hit or miss -Discussed barriers: vet identified time & motivation, I wouldn't say it's about pain. Also mentioned if his is having a bad day, that pulls him away from his self-care. OBJECTIVE: THERAPEUTIC EXERCISE: MINUTES: 45 Supine anterior chest stretch -variety of UE positions trialed to find comfort -cues DB'ing Supine neck retraction, iso 10s x 10 Supine neck rotation ~25 degrees both directions -cues DB'ing Supine nodding, cues breathing and relaxing upper traps Supine upper trap stretch -cues reaching through fingertips Supine rhomboid stretch -cues to relax UT's, deep breathing Seated reverse shoulder circles -demo, verbal & tactile cues due to difficulty coordinating MANUAL THERAPY: MINUTES: 15 STM left upper trap, levator scap Active release with cues DB'ing GAIT TRAINING: MINUTES: NEUROMUSCULAR EDUCATION: MINUTES: OTHER: MINUTES: MODALITIES: MINUTES: [] Contraindication screen completed prior to modality [] Skin intact pre/post SELF CARE/EDUCATION: MINUTES: ED/TRAIN SELF-MGMT NONPHY MINUTES: ASSESSMENT: Ed reports his low back has been stable over the past 2 months and he's noticed a reduction in his overall pain after completing the AMP program. His primary pain c/o remains his left neck and mid-back region. Although this was previously treated in the community, Ed remains motivated to work with PT on this again as he is hopeful he can make additional gains. PLAN: Continue with plan of care and updated HEP as prescribed. Interventions to include: Manual therapy (PRN): stm, MET's, myofascial release Aerobic exercise: continue to encourage, reinforce AMP guidance Therex: gentle progressive core, cervical stabilization, postural therex, diaphragmatic breathing; mindful stretching, self trigger point release Education: PNE, posture, ergo, bodymechanics, relaxation techniques, graded activity for aerobic exercise Update [place] HEP as indicated [Access Code: [email or web address]] Patient education was provided for all aspects of care during this clinical encounter. /monisha/ EUSEBIA LAWTON DPT PHYSICAL THERAPIST Signed: 08/15/2024 12:00 EUSEBIA LAWTON [facility]
--- OUTSIDE RECORDS SUMMARY | 2024-11-06 17:34 | XMS_ITS | Encounter Summary ---
Author Name Department [place] Organization [place] Address [address] [place] [address] Care Team Providers Care Contact Officer Name Role Phone NADERMELBA Primary Care [...] PART B Feb 24, 2020 PART B [id number] STAR DOUGHERTY JR PATIENT MEDICARE (WNR) MEDICARE (M) PART B Feb 24, 2020 PART B [id number] [phone] [id number] STAR DOUGHERTY JR PATIENT MEDICARE (WNR) MEDICARE (M) PART A November 24, 2019 PART A [id number] [phone] STAR DOUGHERTY JR PATIENT MEDICARE (WNR) MEDICARE (M) PART A November 24, 2019 PART A [id number] STAR DOUGHERTY JR PATIENT OFFICE OF REGIONAL DRUG AND ALCOHOL TREATMENT SPECIALIST NO-FAULT INSURANCE NO FAULT May 12, 2022 NO FAULT [id number] DOUGHERTY STAR PATIENT FOR LIFE SUPPLEMEN QI TFL Feb 24, 2020 FOR LIFE [id number] ROSALES DOUGHERTY PATIENT FOR LIFE TFL* Feb 24, 2020 [id number] STAR DOUGHERTY JR PATIENT Selected Encounter [...] activities for the patient from all [place] [facility]. This section includes future appointments and [...] 31, 2024 01:00 PM AMBULATORY - MEDICINE [place] [facility] [place] [facility] Jun 06, 2024 01:00 PM AMBULATORY - MEDICINE [place] [facility] [place] [facility] Jun 13, 2024 01:00 PM AMBULATORY - MEDICINE [place] [facility] [place] [facility] Jun 14, 2024 11:00 AM AMBULATORY - MEDICINE [place] [facility] [place] [facility] Jun 20, 2024 11:00 AM AMBULATORY - PSYCHIATRY [place] [facility] [place] [facility] Jun 20, 2024 01:00 PM AMBULATORY - MEDICINE [place] [facility] [place] [facility] Jun 27, 2024 01:00 PM AMBULATORY - MEDICINE [place] [facility] [place] [facility] Jul 04, 2024 01:00 PM AMBULATORY - MEDICINE [place] [facility] [place] [facility] Jul 05, 2024 01:00 PM AMBULATORY - MEDICINE [place] [facility] [place] [facility] Jul 10, 2024 08:30 AM AMBULATORY - MEDICINE [place] [facility] [place] [facility] Jul 11, 2024 03:00 PM AMBULATORY - PSYCHIATRY [place] [facility] [place] [facility] Jul 31, 2024 10:30 AM AMBULATORY - NONE [place] [facility] [place] [facility] Aug 01, 2024 01:00 PM AMBULATORY - MEDICINE [place] [facility] [place] [facility] Aug 08, 2024 01:00 PM AMBULATORY - MEDICINE [facility] [place] [facility] Aug 09, 2024 10:30 AM AMBULATORY - PSYCHIATRY [place] [facility] [place] [facility] Aug 15, 2024 10:00 AM AMBULATORY - MEDICINE [place] [facility] [place] [facility] Aug 21, 2024 02:30 PM AMBULATORY - MEDICINE [place] [facility] [place] [facility] Aug 29, 2024 09:30 AM AMBULATORY - MEDICINE [place] [facility] [place] [facility] Aug 30, 2024 01:00 PM AMBULATORY - MEDICINE [facility] [place] [facility] Sep 12, 2024 01:45 PM AMBULATORY - MEDICINE [place] [facility] [place] [facility] Encounter Notes: All associated encounter notes This [...] Patient Name: STAR DOUGHERTY JR Patient SSN: [id number] Date and time of Appointment No show [...] 05/31/2024 13:00 CWM/NO/PAIN PT 06/14/2024 11:00 CWM/NO/PAIN MD 1 06/19/2024 10:30 CWM/NO/MHC/FARZANEH 07/03/2024 10:00 CWM/NO/ACUPUNCTURE R2 07/10/2024 08:30 CWM/NO/PACT EIGHT 07/21/2024 08:30 CWM/NO/ACUPUNCTURE R1 07/31/2024 10:30 COM CARE-COLONOSCOPY SURV 08/01/2024 09:00 CWM/NO/ACUPUNCTURE R2 /es/ KUMAR UNGER CHIEF MEDICAL TECHNOLOGIST Signed: 05/26/2024 16:26 05/31/2024 ADDENDUM STATUS: COMPLETED Vet would like reschedule. He shares that he tried joining but didn't connect with the provider. Please outreach. /es/ EUSEBIA LAWTON DPT PHYSICAL THERAPIST Signed: 05/31/2024 13:11 05/31/2024 ADDENDUM STATUS: COMPLETED Provider attempted to contact patient via telephone to reschedule missed Coaching Session. No answer. Left patient a generic voicemail. /es/ ALEXANDER DRAKE Formerly [facility] Senior Qa Analyst Signed: 05/31/2024 15:14 KUMAR UNGER [facility] ([id number])
--- OUTSIDE RECORDS SUMMARY | 2024-11-06 17:34 | XMS_ITS ---
Author Name Department of [place] Organization [place] Address [address] [place] [id number] Care Team Providers Care Fbi Sharpshooter Name Role Phone NADERMELBA Primary Care Provider [...] PART B Feb 24, 2020 PART B [id number] STAR DOUGHERTY JR PATIENT MEDICARE (WNR) MEDICARE (M) PART B Feb 24, 2020 PART B [id number] [phone] STAR DOUGHERTY JR PATIENT MEDICARE (WNR) MEDICARE (M) PART A November 24, 2019 PART A [id number] [phone] STAR DOUGHERTY JR PATIENT MEDICARE (WNR) MEDICARE (M) PART A November 24, 2019 PART A [id number] STAR DOUGHERTY JR PATIENT OFFICE OF REGIONAL APPLICATION SUPPORT DEVELOPER NO-FAULT INSURANCE NO FAULT May 12, 2022 NO FAULT [id number] LADNONA STAR PATIENT FOR LIFE SUPPLEMEN QI TFL Feb 24, 2020 FOR LIFE [id number] ROSALES DOUGHERTY PATIENT FOR LIFE TFL* Feb 24, 2020 [id number] STAR DOUGHERTY JR PATIENT Selected Encounter This section includes the information on record at [place] for the Encounter. Date/Time Encounter Type Encounter Description Reason Provider Source Feb 14, 2024 09:30 AM MANUAL THERAPY 1/> [facility] ICD-10-CM M54.59 Other low back pain EMEUSEBIA Carlin Encounter Template Text not used by [place] Assessments - Encounter Diagnoses This section includes the primary and secondary diagnoses documented for the Encounter. Date/Time Primary/Secondary Diagnosis Diagnosis Name Provider Source Mar 15, 2024 11:49 AM PRIMARY Other low back pain LEIGHANNEUSEBIA [place] [facility] [place] [facility] Plan of Treatment: Future Appointments [...] 01, 2024 09:00 AM AMBULATORY - PSYCHIATRY [place] [facility] [place] [facility] Mar 02, 2024 11:00 AM AMBULATORY - MEDICINE [place] [facility] [place] [facility] Mar 13, 2024 08:00 AM AMBULATORY - MEDICINE [place] [facility] [place] [facility] Mar 15, 2024 10:30 AM AMBULATORY - MEDICINE [place] [facility] [place] [facility] Mar 20, 2024 10:00 AM AMBULATORY - MEDICINE [place] [facility] [place] [facility] Mar 22, 2024 10:45 AM AMBULATORY - MEDICINE [place] [facility] [place] [facility] Mar 22, 2024 11:00 AM AMBULATORY - PSYCHIATRY [place] [facility] [place] [facility] Mar 28, 2024 09:00 AM AMBULATORY - PSYCHIATRY [place] [facility] [place] [facility] Mar 29, 2024 09:00 AM AMBULATORY - MEDICINE [place] [facility] [place] [facility] Mar 30, 2024 09:00 AM AMBULATORY - MEDICINE [facility] [place] [facility] Apr 12, 2024 11:00 AM AMBULATORY - MEDICINE [facility] [place] [facility] Apr 14, 2024 08:30 AM AMBULATORY - MEDICINE [facility] [place] [facility] Apr 18, 2024 08:00 AM AMBULATORY - MEDICINE [facility] [place] [facility] Apr 19, 2024 01:00 PM AMBULATORY - MEDICINE [facility] [place] [facility] Apr 24, 2024 11:00 AM AMBULATORY - PSYCHIATRY [facility] [place] [facility] Apr 24, 2024 01:00 PM AMBULATORY - MEDICINE [facility] [place] [facility] Apr 26, 2024 01:00 PM AMBULATORY - MEDICINE [facility] [place] [facility] May 01, 2024 02:45 PM AMBULATORY - MEDICINE [facility] [place] [facility] May 02, 2024 02:00 PM AMBULATORY - MEDICINE [facility] [place] [facility] May 02, 2024 02:30 PM AMBULATORY - MEDICINE [facility] [place] [facility] Active, Pending, and Scheduled Orders [...] STOOL FECES SP [facility] [place] [facility] Jan 19, 2024 12:00 AM Laboratory - Chemistry Order HEMOGLOBIN A1C PANEL BLOOD (LAV-BLOOD) [facility] [place] [facility] Jan 19, 2024 12:00 AM Laboratory - Chemistry Order BASIC METABOLIC PANEL (non-fasting) BLOOD (SST-SERUM) [facility] [place] [facility] Jan 19, 2024 12:00 AM Laboratory - Chemistry Order TSH BLOOD (SST-SERUM) [facility] Jan 19, 2024 12:00 AM Laboratory - Chemistry Order CBC AND DIFF (AUTO) BLOOD (LAV-BLOOD) [facility] Jan 19, 2024 12:00 AM Laboratory - Chemistry Order LIVER FUNCTION BLOOD (SST-SERUM) [facility] Jan 19, 2024 12:00 AM Laboratory - Chemistry Order LIPID PANEL, NON FASTING BLOOD (SST-SERUM) [facility] Social History: Smoking Status (Most [...] HEP yet, plans to go to the town pool this week weather permitting. Pain, verbal [...] techniques, graded activity for aerobic exercise Update [employer] HEP as indicated [Access Code: [email or web address]] [employer] Access Code: [email or web address] Patient education was provided for all aspects of care during this clinical encounter. /monisha/ EUSEBIA LAWTON DPT PHYSICAL THERAPIST Signed: 02/14/2024 17:27 EU[facility]BIA LAWTON [place] [facility]
--- OUTSIDE RECORDS SUMMARY | 2024-11-06 17:34 | XMS_ITS | Encounter Summary ---
Author Name [facility] [place] Organization [place] Address [address] [place] [id number] Care Team Providers Care Liquid Loader Name Role Phone NADER MELBA Primary Care [...] PART B Feb 24, 2020 PART B [id number] STAR DOUGHERTY JR PATIENT MEDICARE (WNR) MEDICARE (M) PART B Feb 24, 2020 PART B [id number] DOUGHERTY STAR PATIENT MEDICARE (WNR) MEDICARE (M) PART A November 24, 2019 PART A [id number] DOUGHERTY STAR PATIENT MEDICARE (WNR) MEDICARE (M) PART A November 24, 2019 PART A [id number] LADONNA COLEMAN EDLYNNE PATIENT OFFICE OF REGIONAL FURNACE FITTER NO-FAULT INSURANCE NO FAULT May 12, 2022 NO FAULT [id number] LADONNA COLEMANSTAR PATIENT FOR LIFE SUPPLEMEN QI TFL Feb 24, 2020 FOR LIFE [id number] ROSALES DOUGHERTY PATIENT FOR LIFE TFL* Feb 24, 2020 [id number] STAR DOUGHERTY JR PATIENT Selected Encounter This section includes the information on record at [place] for the Encounter. Date/Time Encounter Type Encounter Description Reason Provider Source Jul 11, 2024 03:00 PM OFFICE O/P EST MOD 30 MIN [facility] - IND ICD-10-CM F41.1 Generalized anxiety disorder TODD MOY [facility] Encounter Template Text not used by [place] Assessments - Encounter Diagnoses This section includes the primary and secondary diagnoses documented for the Encounter. Date/Time Primary/Secondary Diagnosis Diagnosis Name Provider Source Aug 06, 2024 10:17 AM PRIMARY Generalized anxiety disorder TODD MOY [place] [facility] [place] [facility] Aug 06, 2024 10:17 AM SECONDARY Insomnia due to other mental disorder TODD MOY [place] [facility] [place] [facility] Plan of Treatment: Future Appointments (+ 6 months) and Future Tests (+/- 45 days) The Plan of Treatment section includes future care activities for the patient from all [place] [facility] This section includes future appointments and [...] 31, 2024 10:30 AM AMBULATORY - NONE [place] [facility] [place] [facility] Aug 01, 2024 01:00 PM AMBULATORY - MEDICINE [place] [facility] [place] [facility] Aug 08, 2024 01:00 PM AMBULATORY - MEDICINE [place] [facility] [place] [facility] Aug 09, 2024 10:30 AM AMBULATORY - PSYCHIATRY [facility] [place] [facility] Aug 15, 2024 10:00 AM AMBULATORY - MEDICINE [place] [facility] [place] [facility] Aug 21, 2024 02:30 PM AMBULATORY - MEDICINE [place] [facility] [place] [facility] Aug 29, 2024 09:30 AM AMBULATORY - MEDICINE [place] [facility] [place] [facility] Aug 30, 2024 01:00 PM AMBULATORY - MEDICINE [facility] [place] [facility] Sep 12, 2024 01:45 PM AMBULATORY - MEDICINE [facility] [place] [facility] Sep 14, 2024 10:30 AM AMBULATORY - PSYCHIATRY [facility] [place] [facility] Sep 14, 2024 11:30 AM AMBULATORY - MEDICINE [facility] [place] [facility] Sep 18, 2024 11:30 AM AMBULATORY - MEDICINE [facility] [place] [facility] Sep 18, 2024 11:31 AM AMBULATORY - MEDICINE [facility] [place] [facility] Sep 19, 2024 02:30 PM AMBULATORY - MEDICINE [facility] [place] [facility] Sep 22, 2024 09:00 AM AMBULATORY - PSYCHIATRY [facility] [place] [facility] Sep 25, 2024 02:45 PM AMBULATORY - MEDICINE [facility] [place] [facility] Sep 29, 2024 09:00 AM AMBULATORY - PSYCHIATRY [facility] [place] [facility] Oct 03, 2024 01:00 PM AMBULATORY - REHAB MEDICIN E [facility] [place] [facility] Oct 06, 2024 09:00 AM AMBULATORY - PSYCHIATRY [facility] [place] [facility] Oct 06, 2024 10:00 AM AMBULATORY - MEDICINE [facility] [place] [facility] Lab Results: +/- 30 days of the [...] Type Comment Jul 04, 2024 07:55 AM [facility] [place] [facility] METHADONE SCREEN URINE Specimen Type: URINE Comment: NATO test are qualitative, any L or H flags only indicate a VA alert was sent. Ordering Provider: CESAR LOYA Report Released Date/Time: Apr 20, 2024 08:58 AM Reporting Lab: [facility] [place] [address] [address] Performing Lab: [facility] [address] [facility] [address] METHADONE SCREEN None detected(Negative) L Negative Jul 04, 2024 07:55 AM [facility] ALCOHOL, ETHYL URINE PANEL URINE Specimen Typ [...] Apr 20, 2024 08:58 AM Reporting Lab: [address] [address] Performing Lab: [address] [address] ALCOHOL, ETHYL URINE NONE-DETECTED mg/dL NONE-DETECTED, cutoff = 10 mg/dL PH, NATO 5.4 [pH] 4-10 CREATININE, NATO 123.15 mg/dL >20 SP.GRAVITY, NATO 1.026 H 1.003-1.020 Jul 04, 2024 07:55 AM [facility] AMPHETAMINES SCREEN PANEL URINE Specimen Type : [...] Apr 20, 2024 08:58 AM Reporting Lab: [address] [address] Performing Lab: [address] [address] AMPHETAMINES SCREEN NONE-DETECTED None-D etected, Cutoff = 1000 ng/mL PH, NATO 5.4 [pH] 4-10 CREATININE, NATO 123.15 mg/dL >20 SP.GRAVITY, NATO 1.026 H 1.003-1.020 Jul 04, 2024 07:55 AM [facility] BENZODIAZEPINES SCREEN PANEL URINE Specimen T ype: [...] Apr 20, 2024 08:58 AM Reporting Lab: [address] [address] Performing Lab: [address] [address] BENZODIAZEPINES SCREEN NONE-DETECTED Non e-Detected, Cutoff = 200 ng/mL PH, NATO 5.4 [pH] 4-10 CREATININE, NATO 123.15 mg/dL >20 SP.GRAVITY, NATO 1.026 H 1.003-1.020 Jul 04, 2024 07:55 AM [facility] FENTANYL SCREEN PANEL URINE Specimen Type: UR [...] Apr 20, 2024 08:58 AM Reporting Lab: [address] [address] Performing Lab: [facility] [address] [address] FENTANYL SCREEN NONE-DETECTED ng/mL Nega tive: Cutoff = 1.00 ng/mL PH, NATO 5.4 [pH] 4-10 CREATININE, NATO 123.70 mg/dL >20 SP.GRAVITY, NATO 1.026 H 1.003-1.020 Jul 04, 2024 07:55 AM [facility] BUPRENORPHINE SCREEN PANEL URINE Specimen Typ e: [...] Apr 20, 2024 08:58 AM Reporting Lab: [address] [address] Performing Lab: [address] [address] BUPRENORPHINE (URINE) NONE-DETECTED None Detected, Cutoff = 10.0 ng/mL PH, NATO 5.4 [pH] 4-10 CREATININE, NATO 123.15 mg/dL >20 SP.GRAVITY, NATO 1.026 H 1.003-1.020 Jul 04, 2024 07:55 AM [facility] [place] CANNABINOIDS SCREEN PANEL URINE Specimen Type : [...] Apr 20, 2024 08:58 AM Reporting Lab: [address] [address] Performing Lab: [address] [address] CANNABINOIDS SCREEN NONE-DETECTED None-D etected,Cutoff = 50 ng/mL PH, NATO 5.4 [pH] 4-10 CREATININE, NATO 123.15 mg/dL >20 SP.GRAVITY, NATO 1.026 H 1.003-1.020 Jul 04, 2024 07:55 AM [facility] [place] COCAINE SCREEN PANEL URINE Specimen Type: URI [...] Apr 20, 2024 08:58 AM Reporting Lab: [address] [address] Performing Lab: [address] [address] COCAINE SCREEN NONE-DETECTED None-Detect ed,Cutoff = 300 ng/mL PH, NATO 5.4 [pH] 4-10 CREATININE, NATO 123.15 mg/dL >20 SP.GRAVITY, NATO 1.026 H 1.003-1.020 Jul 04, 2024 07:55 AM [facility] [place] OPIATES SCREEN PANEL URINE Specimen Type: URI [...] Apr 20, 2024 08:58 AM Reporting Lab: [address] [place] [address] Performing Lab: [facility] [address] [facility] [address] OPIATES SCREEN NONE-DETECTED None-Detect ed, Cutoff = 300 ng/mL PH, NATO 5.4 [pH] 4-10 CREATININE, NATO 123.15 mg/dL >20 SP.GRAVITY, NATO 1.026 H 1.003-1.020 Jul 04, 2024 07:55 AM [facility] [place] OXYCODONE SCREEN PANEL URINE Specimen Type: U [...] Apr 20, 2024 08:58 AM Reporting Lab: [address] [address] Performing Lab: [address] [address] OXYCODONE SCREEN NONE-DETECTED None-Dete cted, Cutoff = 100 ng/mL PH, NATO 5.4 [pH] 4-10 CREATININE, NATO 123.15 mg/dL >20 SP.GRAVITY, NATO 1.026 H 1.003-1.020 Jul 04, 2024 07:51 AM [facility] [place] [id number] PGx BLOOD Specimen Type: BLOOD Comment: shipped on manifest [id number] Ordering Provider: YANCY MOY Report Released Date/Time: Apr 24, 2024 12:11 PM Reporting Lab: [facility] [address] [facility] [address] Performing Lab: [facility] [address] [facility] [address] [id number] PGx comment Jul 04, 2024 07:51 AM [facility] LIVER FUNCTION SERUM Specimen Type: SERUM No comment entered. Ordering Provider: MELBA DOE Report Released Date/Time: Jan 06, 2024 03:34 PM Reporting Lab: [facility] [address] [facility] [address] Performing Lab: [address] [address] PROTEIN,TOTAL 6.8 g/dL 6.0-8.3 ALBUMIN 4.2 g/dL 3.5-5.0 ALKALINE PHOSPHATASE 84 U/L 40-150 AST 19 U/L 5-34 ALT 27 U/L BILIRUBIN, TOTAL 0.3 mg/dL 0.2-1.2 Jul 04, 2024 07:51 AM [facility] BASIC METABOLIC PANEL (fasting) SERUM Specime n Type: SERUM No comment entered. Ordering Provider: MELBA DOE Report Released Date/Time: Jan 06, 2024 03:34 PM Reporting Lab: [facility] [address] [facility] [address] Performing Lab: [address] [address] UREA NITROGEN 13 mg/dL 7-25 GLUCOSE 123 mg/dL H 65-100 SODIUM 138 mmol/L 135-145 POTASSIUM 4.7 mmol/L 3.5-5.0 CHLORIDE 103 mmol/L 100-110 CO2 27 meq/L 20-30 CREATININE, Serum 0.93 mg/dL 0.50-1.40 eGFR(CKD-EPI 2020) 89 mL/min >60 Jul 04, 2024 07:51 AM [facility] CBC BLOOD Specimen Type: BLOOD No comment entered. Ordering Provider: MELBA DOE Report Released Date/Time: Jan 06, 2024 03:34 PM Reporting Lab: [facility] [address] [facility] [address] Performing Lab: [address] [address] WBC 6.85 10*3/uL 4.50-11.00 RBC 4.76 10*6/uL [...] Facil ity Jul 10, 2024 08:30 AM [place]-TOBACCO NEVER U SED CIGARETTES [facility] Tobacco Use History This section includes a history of the smoking, or tobacco-related health factors, that were collected on or before the date of the Encounter. The data comes from the [place] facility where the Encounter took place. Date/Time Smoking Status/Tobacco Use Comment F acility Jul 10, 2024 08:30 AM VA-TOBACCO NEVER U SED OTHER [facility] Sep 04, 2021 02:56 PM VA-TOBACCO NEVER USED [facility] Encounter Notes: All associated encounter [...] Anxiety Disorder with Panic Attacks presents for [facility] Follow-Up appointment. Last seen by This Provider [...] been confused by the 'As Needed' guidance. was informed that this is not a PRN medication. Feels that there's slight benefit re anxiety and denies somnolence or ataxia as side effects. No perceptible improvement on pain symptoms. [place] emphasizes extent to which pain contributes to MH symptoms and poor sleep [place] explicitly and convincingly denied SI, intent or [...] 08/12/2023 MARIBEL SHAFER Tinnitus H93.19, Onset 05/31/2023 MAY,BERTO Johnson Pain R52., Onset 05/31/2023November,BERTO Johnson Anxiety [...] their efficacy (or lack thereof) with confidence [place] advised as to increased risk of respiratory depression, sedation, impaired coordination, increased fall risk and impaired cognition. Advised not to use while driving or operating machinery. Also advised of risk for dependence and advised not to combine with other INTERN ARCHITECT depressants PDMP and chart review do suggest [...] Provider can be contacted at , EXT [phone] or via Secure Messaging. 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 [...] Nurse Practitioner Signed: 07/13/2024 16:33 YANCY MOY [place] [facility]
--- OUTSIDE RECORDS SUMMARY | 2024-11-06 17:34 | XMS_ITS ---
Author Name [facility] [place] Organization [facility] Address [address] [place] [address] Care Team Providers Care Railroad Passenger Agent Name Role Phone NADERMELBA Primary Care Provider [...] PART B Feb 24, 2020 PART B [id number] STAR DOUGHERTY JR PATIENT MEDICARE (WNR) MEDICARE (M) PART B Feb 24, 2020 PART B [id number] [phone] [id number] STAR DOUGHERTY JR PATIENT MEDICARE (WNR) MEDICARE (M) PART A November 24, 2019 PART A [id number] STAR DOUGHERTY JR PATIENT MEDICARE (WNR) MEDICARE (M) PART A November 24, 2019 PART A [id number] [id number] STAR DOUGHERTY JR PATIENT OFFICE OF REGIONAL DYE TUB TENDER NO-FAULT INSURANCE NO FAULT May 12, 2022 NO FAULT [id number] STAR DOUGHERTY JR PATIENT FOR LIFE SUPPLEMEN QI TFL Feb 24, 2020 FOR LIFE [id number] 14 ROSALES DOUGHERTY PATIENT FOR LIFE TFL* Feb 24, 2020 [id number] 14 STAR DOUGHERTY JR PATIENT Selected Encounter This section includes the information on record at [place] for the Encounter. Date/Time Encounter Type Encounter Description Reason Provider Source Oct 09, 2024 02:00 PM SELF CARE MNGMENT [facility]ING [facility] ICD-10-CM M54.59 Other low back pain LEIGHANNEUSEBIA Carlin Encounter Template Text not used by [place] Assessments - Encounter Diagnoses This section includes the primary and secondary diagnoses documented for the Encounter. Date/Time Primary/Secondary Diagnosis Diagnosis Name Provider Source Oct 25, 2024 11:47 AM PRIMARY Other low back pain MARYAMJEOVANNY STRICKLANDEUSEBIA [place] [facility] [place] [facility] Plan of Treatment: Future Appointments (+ 6 months) and Future Tests (+/- 45 days) The Plan of Treatment section includes future care activities for the patient from all [place] treatmentfacilities. This section includes future appointments and future orders which are active, pending or scheduled. Future Appointments This section includes appointments that were scheduled to occur 6 months from the date of the Encounter, up to a maximum of 20 appointments. The data comes from all [place] treatment facilities. Appointment Date/Time Appointment Type Appointme nt Facility Name Oct 16, 2024 02:00 PM AMBULATORY - PSYCHIATRY [facility] [place] [facility] Oct 18, 2024 01:00 PM AMBULATORY - REHAB MEDICIN E [facility] [place] [facility] Oct 20, 2024 09:00 AM AMBULATORY - PSYCHIATRY [facility] [place] [facility] Oct 23, 2024 02:00 PM AMBULATORY - PSYCHIATRY [facility] [place] [facility] Oct 27, 2024 10:30 AM AMBULATORY - PSYCHIATRY [facility] [place] [facility] Oct 30, 2024 02:00 PM AMBULATORY - PSYCHIATRY [facility] [place] [facility] Nov 09, 2024 01:30 PM AMBULATORY - MEDICINE [place] [facility] [place] [facility] Nov 21, 2024 10:00 AM AMBULATORY - MEDICINE [place] C [facility] [place] [facility] November 27, 2024 02:00 PM AMBULATORY - PSYCHIATRY [facility] [place] [facility] December 04, 2024 10:30 AM AMBULATORY - [facility] December 22, 2024 10:30 AM AMBULATORY - NONE [place] [facility] Dec 26, 2024 09:00 AM AMBULATORY - MEDICINE [place] 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 The data comes from the [place] facility where the Encounter took place. Date/Time Smoking Status/Tobacco Use Comment F acility Jul 10, 2024 08:30 AM VA-TOBACCO NEVER U SED OTHER TYPE [facility] Sep 04, 2021 02:56 PM VA-TOBACCO NEVER USED [facility] Encounter Notes: All associated encounter notes This section contains the clinical notes associated to the Encounter. Date/Time Encounter Note(s) Provider Source Oct 09, 2024 08:42 AM PHYSICAL THERAPY N OTE: LOCAL TITLE: PHYSICAL THERAPY STANDARD TITLE: PHYSICAL THERAPY NOTE DATE OF NOTE: OCT 09, 2024@08:42 ENTRY DATE: OCT 09, 2024@08:42:20 AUTHOR: EUSEBIA LAWTON COSIGNER: URGENCY: STATUS: COMPLETED Initial Evaluation date: 02/10/2024 Progress Note: 05/17/24 Treatment #: 19 Treatment time: 60 Diagnosis: Other low back pain(ICD-10-CM M54.59) Provider: Dr. Roth PT Treatment Precautions: Pt identified by full name and . Active problems - Computerized Problem List is the source for the followin. Exposure to potentially hazardous substance 2. Cervical radiculopathy 3. Tinnitus 4. Pain 5. Anxiety 6. Benign prostatic hyperplasia TREATMENT PRECAUTIONS OR DAILY INSTRUCTIONS: (Vitals, surgical precautions etc.) SUBJECTIVE: Ed states I'm twisted today. He drove to [place], [place] last week. He was a passenger in the car the next day for extended time (1.5 hrs). He's had a difficult time turning his head and lifting his arms above shoulder height due to increased pain. Ed has noticed that his anxiety has been elevated. He's been thinking about getting more help caring for his property. Response from previous session: tolerated well, no c/o increased pain Muscle tension ratin/10 Pain, verbal numeric scale 0-10: 8/10 HEP Adherence: []None []1-2x/wk []3-4x/wk []5-6x/wk [x]Daily -- continues to find the supine exercises for his back beneficial -- spends at least 10 minutes, 2x/day performing therex -- using home cervical traction unit, 3-4x/wk; beneficial -- states motivation is barrier to using his cycle -- plans to begin walking more as the weather improves; walked 15 minutes yesterday OBJECTIVE: [X] Reassess ROM: Cervical rotation Right: 40-42 degrees; vet applying gentle overpressure as tolerated. Left: 32-34 degrees; vet applying gentle overpressure as tolerated. THERAPEUTIC EXERCISE: MINUTES: 45 Cervical nods w/occipital float support Cervical rotation w/overpressure -cues DB'ing Cervical retraction Lev scap, dynamic stretch Reverse shoulder circles Shoulder AAROM flexion w/strap TrA isometric Lower trunk rotation w/opposite UE rotation within tolerance Standing pelvic tilts, A/P -cues relax UQ, DB'ing -difficulty isolating pelvic motion Standing thoracic reaches -demo & cues -encouraged to keep hips still, eyes follow fingertips Alt step with opposite shoulder flex within tolerance -cues breathing MANUAL THERAPY: MINUTES: GAIT TRAINING: MINUTES: NEUROMUSCULAR EDUCATION: MINUTES: OTHER: MINUTES: MODALITIES: MINUTES: [] Contraindication screen completed prior to modality [] Skin intact pre/post SELF CARE/EDUCATION: MINUTES: 15 Reviewed pain flare plan: -heated rice pack, cervical traction, gentle AROM, lidocaine patch, diclofenac gel, Tens ED/TRAIN SELF-MGMT NONPHY MINUTES: ASSESSMENT: [X]Response to treatment: Ed stated I loosened up a bit. Cervical rotation has remained stable since prior progress check without any gains in motion. Exercise tolerance: []Good [X]Fair []Poor Pain, verbal numeric scale 0-10: 6/10, mild improvement post tx Muscle tension numeric scale 0-10: 5/10 back, 4/10 arms & shoulders PLAN: Continue with HEP as prescribed. Follow-up next week for anticipated discharge from individual PT care. Vet working on access for [facility]. Interventions to include: Manual therapy (PRN): stm, MET's, myofascial release Aerobic exercise: continue to encourage, reinforce AMP guidance Therex: gentle progressive core, cervical stabilization, postural therex, diaphragmatic breathing; mindful stretching, self-trigger point release Education: PNE, posture, ergo, bodymechanics, relaxation techniques, graded activity for aerobic exercise Update [employer] HEP as indicated [Access Code: [email or web address]] Patient education was provided for all aspects of care during this clinical encounter. /monisha/ EUSEBIA LAWTON DPT PHYSICAL THERAPIST Signed: 10/09/2024 22:25 EUSEBIA LAWTON [facility]
--- OUTSIDE RECORDS SUMMARY | 2024-11-06 17:34 | XMS_ITS | Encounter Summary ---
Author Name [place] Organization [place] Address [address] [place] [address] Care Team Providers Care Microbiology Technologist Name Role Phone MELBA DOE Primary Care [...] PART B Feb 24, 2020 PART B [id number] STAR DOUGHERTY JR PATIENT MEDICARE (WNR) MEDICARE (M) PART B Feb 24, 2020 PART B [id number] LADONNA COLEMANSTAR PATIENT MEDICARE (WNR) MEDICARE (M) PART A November 24, 2019 PART A [id number] [phone] LADONNA COLEMANSTAR PATIENT MEDICARE (WNR) MEDICARE (M) PART A November 24, 2019 PART A [id number] DOUGHERTY STAR COLEMAN PATIENT OFFICE OF REGIONAL TACK PULLER NO-FAULT INSURANCE NO FAULT May 12, 2022 NO FAULT [id number] LADONNA COLEMANSTAR PATIENT FOR LIFE SUPPLEMEN QI TFL Feb 24, 2020 FOR LIFE [id number] ROSALES DOUGHERTY PATIENT FOR LIFE TFL* Feb 24, 2020 [id number] STAR DOUGHERTY JR PATIENT Selected Encounter [...] activities for [place] from all [place] [facility]. This section includes future appointments and [...] - PSYCHIATRY [place] [facility] May 26, 2024 11:00 AM AMBULATORY - MEDICINE [place] [facility] May 31, 2024 01:00 PM AMBULATORY - MEDICINE [place] [facility] Jun 06, 2024 01:00 PM AMBULATORY - MEDICINE [place] [facility] Jun 13, 2024 01:00 PM AMBULATORY - MEDICINE [place] [facility] Jun 14, 2024 11:00 AM AMBULATORY - MEDICINE [place] [facility] [place] [facility] Jun 20, 2024 11:00 AM AMBULATORY - PSYCHIATRY [place] [facility] [place] [facility] Jun 20, 2024 01:00 PM AMBULATORY - MEDICINE [place] [facility] Jun 27, 2024 01:00 PM AMBULATORY - MEDICINE [place] [facility] [place] [facility] Jul 04, 2024 01:00 PM AMBULATORY - MEDICINE [place] [facility] Jul 05, 2024 01:00 PM AMBULATORY - MEDICINE [place] [facility] Jul 10, 2024 08:30 AM AMBULATORY - MEDICINE [place] [facility] Jul 11, 2024 03:00 PM AMBULATORY - PSYCHIATRY [place] [facility] [place] [facility] Jul 31, 2024 10:30 AM AMBULATORY - NONE [place] [facility] [place] [facility] Aug 01, 2024 01:00 PM AMBULATORY - MEDICINE [place] [facility] [place] [facility] Aug 08, 2024 01:00 PM AMBULATORY - MEDICINE [place] [facility] Aug 09, 2024 10:30 AM AMBULATORY - PSYCHIATRY [place] [facility] Aug 15, 2024 10:00 AM AMBULATORY - MEDICINE [place] [facility] Aug 21, 2024 02:30 PM AMBULATORY - MEDICINE [place] [facility] Aug 29, 2024 09:30 AM AMBULATORY - MEDICINE [facility] [place] [place] [facility] Social History: Smoking Status (Most [...] PM VA-TOBACCO NEVER USED [place] [facility] Encounter Notes: All associated encounter [...] 10MG TAB Thank you, Jessica /monisha/ JESSICA SCOTT Spray Mixer Signed: 05/17/2024 13:04 Receipt Acknowledged By: 05/17/2024 16:03 /monisha/ MELBA DOE D.O. PHYSICIAN 05/17/2024 15:29 /monisha/ KIMBERLY BARRAZA, RN REGISTERED NURSE [facility]ESSICA SCOTT [facility]
--- OUTSIDE RECORDS SUMMARY | 2024-11-06 17:35 | XMS_ITS ---
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 Date/Time Encounter Type Encounter Description Reason Provider Source Aug 08, 2024 01:00 PM EDU&TRN PT SLF-MGMT [facility] 5-8 PAIN CLINIC ICD-10-CM G89.4 Chronic pain syndrome YAMILE ROJAS Carlin Encounter Template Text not used by [place] Assessments - Encounter Diagnoses This section includes the primary and secondary diagnoses documented for the Encounter. Date/Time Primary/Secondary Diagnosis Diagnosis Name Provider Source Aug 08, 2024 04:18 PM PRIMARY Chronic pain syndrome YAMILE ROJAS [place] [facility] [facility] Plan of Treatment: Future Appointments (+ 6 months) and Future Tests (+/- 45 days) The Plan of Treatment section includes future care activities for the patient from all [place] [facility]. This section includes future appointments and future orders which are active, pending or scheduled. Future Appointments This section includes appointments that were scheduled to occur 6 months from the date of the Encounter, up to a maximum of 20 appointments. The data comes from all [place] treatment facilities. Appointment Date/Time Appointment Type Appointme nt Facility Name Aug 09, 2024 10:30 AM AMBULATORY - PS[place]CHIATRY [place] [facility] [place] [facility] Aug 15, 2024 10:00 AM [facility] [place] [facility] Aug 21, 2024 02:30 PM AMBULATORY - MEDICINE [place] [facility] Aug 29, 2024 09:30 AM AMBULATORY - MEDICINE [place] [facility] Aug 30, 2024 01:00 PM AMBULATORY - MEDICINE [place] [facility] Sep 12, 2024 01:45 PM AMBULATORY - MEDICINE [place] [facility] Sep 14, 2024 10:30 AM AMBULATORY - PSYCHIATRY [place] [facility] [place] [facility] Sep 14, 2024 11:30 AM AMBULATORY - MEDICINE [place] [facility] Sep 18, 2024 11:30 AM AMBULATORY - MEDICINE [place] [facility] Sep 18, 2024 11:31 AM AMBULATORY - MEDICINE [place] [facility] [place] [facility] Sep 19, 2024 02:30 PM AMBULATORY - MEDICINE [place] [facility] [place] [facility] Sep 22, 2024 09:00 AM AMBULATORY - PSYCHIATRY [place] [facility] [place] [facility] Sep 25, 2024 02:45 PM AMBULATORY - MEDICINE [place] [facility] [place] [place] [facility] Sep 29, 2024 09:00 AM AMBULATORY - PSYCHIATRY [place] [facility] [place] [facility] Oct 03, 2024 01:00 PM AMBULATORY - REHAB MEDICIN E [place] [facility] [place] [place] [facility] Oct 06, 2024 09:00 AM AMBULATORY - PSYCHIATRY [place] [facility] [place] [facility] Oct 06, 2024 10:00 AM AMBULATORY - MEDICINE [place] [facility] [place] [place] [facility] Oct 09, 2024 02:00 PM AMBULATORY - REHAB MEDICIN E [place] [facility] [place] [facility] Oct 16, 2024 02:00 PM AMBULATORY - PSYCHIATRY [place] [facility] [place] [facility] Oct 18, 2024 01:00 PM AMBULATORY - REHAB MEDICIN E [place] [facility] [place] [facility] Active, Pending, and Scheduled Orders [...] Consult Order REHAB MEDI CINE/[facility] OUTPT Cons [facility] [place] [facility] [place] [facility] Social History: Smoking Status (Most [...] 08:30 AM VA-TOBACCO NEVER U SED CIGARETTES [facility] Tobacco Use History This section includes a history of the smoking, or tobacco-related health factors, that were collected on or before the date of the Encounter. The data comes from the [place] facility where the Encounter took place. Date/Time Smoking Status/Tobacco Use Comment F acility Jul 10, 2024 08:30 AM VA-TOBACCO NEVER U SED OTHER TYPE [facility] Sep 04, 2021 02:56 PM VA-TOBACCO NEVER USED [facility] Encounter Notes: All associated encounter notes This section contains the clinical notes associated to the Encounter. Date/Time Encounter Note(s) Provider Source Aug 08, 2024 03:44 PM PHYSICAL THERAPY NOTE: LOCAL TITLE: ACTIVE INTERDISCIPLINARY SESSION NOTE STANDARD TITLE: PHYSICAL THERAPY NOTE DATE OF NOTE: AUG 08, 2024@15:44 ENTRY DATE: AUG 08, 2024@15:45:01 AUTHOR: YAMILE ROJAS EXP COSIGNER: URGENCY: STATUS: COMPLETED ACTIVE INTERDISCIPLINARY SESSION NOTE Has ADDENDA AMP Interdisciplinary Group Parent Note: Session 8 AMP Provider/s facilitating todays session: Psychologist: Yamile [...] participant. Prior to the AMP program this [place] confirmed their willingness and interest in participating in this small group, interdisciplinary, pain self-management program. This [place] has acknowledged awareness and acceptance of: 1. [...] for todays session: 5 Summary of Session 8: Behavioral Health and Physical Therapy providers co-facilitated this final session of AMP. Session started with a guided activity focused on achieving inner stability and confidence even when facing difficulties (Mountain Visualization). Time was spent promoting introspection and reflecting on this final session of AMP; encouraged participants to share their experience during treatment and changes they have noticed. Discussed the importance of building their own toolbox and assisted participants in taking inventory of the tools they have gained thus far with the Amp Up Your Gains worksheet. Future exercise and activity needs for participants were discussed and the Transformation Zone was utilized to help guide their decisions in terms of physical activity after AMP. The importance of ruling out threat was underscored and ways to approach challenging times were discussed. Participants were provided with a graduation certificate recognizing their commitment to themselves and their wellness throughout treatment. Veterans were encouraged to share final thoughts with one another and with providers. The final portion of this session focused on discussing care planning and future individual needs. Plan: This is the final session of AMP. The [place] was reminded that the AMP program seeks to introduce and educate them in fundamental pain self-management strategies. [Yes] The [place] was provided with the contact information for the AMP providers and encouraged to reach out if they have questions regarding application of the strategies taught as part of the AMP program. [Yes] The [place] was provided with information regarding wellness programs and Whole Health offerings to further build on the strategies taught as part of the AMP program. will: [X] Continue to focus on maintenance of AMP skills independently; participant is aware they can contact providers if needed in the future. [ ] Continue to focus on maintenance of AMP skills independently, however requested a referral to: AMP provider(s) will facilitate care coordination in collaboration with the Veterans healthcare team. [No] Are other actions required at this time to ensure this Veterans ability to independently apply the strategies learned through the AMP program? If yes, these other actions may include: [ ] Booster session with AMP PT. [ ] Booster session with AMP behavioral health. [ ] Interdisciplinary BH/PT booster session. [ ] Other actions and/or recommendations not detailed above: /monisha/ YAMILE ROJAS, PH.D. CLINICAL HEALTH PSYCHOLOGIST Signed: 08/08/2024 16:18 08/08/2024 ADDENDUM STATUS: COMPLETED [facility] Behavioral Health Session Note AMP Interdisciplinary Group Session: 8 ======== This is the final session of AMP. Please see the session summary portion of [facility] AMP Interdisciplinary Note for details describing the content, strategies, and skills taught during todays session. Assessment/Plan: [Yes] Did the [place] confirm completion (showed worksheets, returned, or verbally) of the home practice work sheets from the previous session? If applicable, please describe the barriers the communicated to completing the previous sessions worksheets: [Yes] was an active participant and provided relevant and on topic contributions during today session. [Yes] The suicide and homicide risk were determined to be low for this during todays session. [Yes] No other acute psychological distress was observed for this [place] during today session. [No] Did this [place] demonstrate or communicate the need for further behavioral health follow up beyond the AMP group sessions? If yes, this is detailed here: /monisha/ YAMILE ROJAS, PH.D. CLINICAL HEALTH PSYCHOLOGIST Signed: 08/10/2024 09:16 08/08/2024 ADDENDUM STATUS: COMPLETED Physical Therapy Note AMP Interdisciplinary Group Session: 8 ======== This is the final session of AMP. Please see the session summary portion of today's AMP Interdisciplinary Note for details describing the content, strategies, and skills taught during today's session. Assessment/Plan: [NO] Did the [place] require any suggestions for modifications from the AMP PT to specific skills/strategies performed as part of their home practice since last session? If yes, please describe: [NO] Did specific issues of concern or barriers to participation regarding this [place] come up during today's session? If yes, these concerns are detailed here: [YES] This verbalized and/or demonstrated understanding in the concepts, strategies, and skills as described in the session summary portion of this session's AMP Interdisciplinary Note. [YES] This [place] verbalized and/or demonstrated understanding in how to safely and effectively implement the concepts, strategies, and skills learned through the AMP program. If no, please describe: [NO] Did this demonstrate or communicate the need for further PT follow up beyond the AMP group sessions? If yes, this is detailed here: [X] Additional Comments: Ed shared that his daughter and have provided positive feedback to him since starting AMP. He verbalized a better understanding of how his stress and anger impact his pain experience. He would like to get back to individual PT care with this manual writer and confirmed his plan to follow-up next week as scheduled. /monisha/ EUSEBIA LAWTON DPT PHYSICAL THERAPIST Signed: 08/08/2024 17:31 YAMILE ROJAS [facility]L [facility] [place] [facility]
--- OUTSIDE RECORDS SUMMARY | 2024-11-06 17:35 | XMS_ITS ---
Author Name Department [place] Organization [facility] Address [address] [place] [id number] Care Team Providers Care Senior Product Marketing Manager Name Role Phone NADERMELBA Primary Care [...] PART B Feb 24, 2020 PART B [id number] STAR DOUGHERTY JR PATIENT MEDICARE (WNR) MEDICARE (M) PART B Feb 24, 2020 PART B [id number] STAR DOUGHERTY JR PATIENT MEDICARE (WNR) MEDICARE (M) PART A November 24, 2019 PART A [id number] STAR DOUGHERTY JR PATIENT MEDICARE (WNR) MEDICARE (M) PART A November 24, 2019 PART A [id number] STAR DOUGHERTY JR PATIENT 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 Date/Time Encounter Type Encounter Description Reason Provider Source Apr 19, 2024 01:00 PM SELF CARE MNGMENT TRAINING PAIN CLINIC ICD-10-CM M54.59 Other low back pain MARYAMEUSEBIA STRICKLAND Carlin Encounter Template Text not used by [place] Assessments - Encounter Diagnoses This section includes the primary and secondary diagnoses documented for the Encounter. Date/Time Primary/Secondary Diagnosis Diagnosis Name Provider Source Apr 19, 2024 03:55 PM PRIMARY Other low back pain EUSEBIA LAWTON [place] [facility] Plan of Treatment: Future Appointments (+ 6 months) and Future Tests (+/- 45 days) The Plan of Treatment section includes future care activities for the patient from all [place] [facility]. This section includes future appointments and [...] 24, 2024 11:00 AM AMBULATORY - PSYCHIATRY [place] [facility] Apr 24, 2024 01:00 PM AMBULATORY - MEDICINE [place] [facility] Apr 26, 2024 01:00 PM AMBULATORY - MEDICINE [place] [facility] May 01, 2024 02:45 PM AMBULATORY - MEDICINE [place] [facility] May 02, 2024 02:00 PM AMBULATORY - MEDICINE [place] [facility] May 02, 2024 02:30 PM AMBULATORY - MEDICINE [place] [facility] May 03, 2024 03:00 PM AMBULATORY - MEDICINE [place] [facility] May 10, 2024 03:45 PM AMBULATORY - MEDICINE [place] [facility] May 17, 2024 01:45 PM AMBULATORY - MEDICINE [place] [facility] May 22, 2024 10:30 AM AMBULATORY - PSYCHIATRY [place] [facility] [place] [facility] May 26, 2024 11:00 AM AMBULATORY - MEDICINE [place] [facility] [place] [place] [facility] May 31, 2024 01:00 PM AMBULATORY - MEDICINE [place] [facility] [place] [place] [facility] Jun 06, 2024 01:00 PM AMBULATORY - MEDICINE [place] [facility] Jun 13, 2024 01:00 PM AMBULATORY - MEDICINE [place] [facility] [place] [place] [facility] Jun 14, 2024 11:00 AM AMBULATORY - MEDICINE [place] [facility] [place] [place] [facility] Jun 20, 2024 11:00 AM AMBULATORY - PSYCHIATRY [place] [facility] [place] [facility] Jun 20, 2024 01:00 PM AMBULATORY - MEDICINE [place] [facility] [place] [place] [facility] Jun 27, 2024 01:00 PM AMBULATORY - MEDICINE [place] [facility] Jul 04, 2024 01:00 PM AMBULATORY - MEDICINE [place] C [place] [facility] Jul 05, 2024 01:00 PM AMBULATORY - MEDICINE [place] [facility] Lab Results: +/- 30 days [...] Type Comment Apr 05, 2024 09:14 [facility] LIPID PANEL FASTING SERUM Specimen Type: SERUM No comment entered. Ordering Provider: MELBA DOE Report Released Date/Time: Mar 29, 2024 09:37 AM Reporting [facility] [address] [address] Performing Lab: [facility] [address] [address] CHOLESTEROL 167 mg/dL TRIGLYCERIDE 231 mg/dL H 0-150 LDL calculated 80 mg/dL 0-129 CHOL/HDL 4.1 HDL CHOLESTEROL 41 mg/dL 40-60 Apr 05, 2024 09:14 AM [facility] VITAMIN B12 SERUM Specimen Type: SERUM No comment entered. Ordering Provider: MELBA DOE Report Released Date/Time: Mar 29, 2024 09:37 AM Reporting Lab: [facility] [address] [facility] [address] Performing Lab: [facility] [address] [facility] [address] VITAMIN B12 500 pg/mL 200-900 Apr 05, 2024 09:14 AM [facility] BASIC METABOLIC PANEL (fasting) SERUM Specime n Type: SERUM No comment entered. Ordering Provider: MELBA DOE Report Released Date/Time: Mar 29, 2024 09:37 AM Reporting Lab: [facility] [address] [facility] [address] Performing Lab: [address] [address] UREA NITROGEN 22 mg/dL 7-25 GLUCOSE 128 mg/dL H 65-100 SODIUM 140 mmol/L 135-145 POTASSIUM 4.2 mmol/L 3.5-5.0 CHLORIDE 103 mmol/L 100-110 CO2 26 meq/L 20-30 CREATININE, Serum 1.02 mg/dL 0.50-1.40 eGFR(CKD-EPI 2020) 80 mL/min >60 Apr 05, 2024 09:14 AM [facility] TSH SERUM Specimen Type: SERUM No comment entered. Ordering Provider: MELBA DOE Report Released Date/Time: Mar 29, 2024 09:37 AM Reporting Lab: [facility] [address] [facility] [address] Performing Lab: [address] [address] TSH 1.38 u[IU]/mL 0.35-5.00 Apr 05, 2024 09:14 AM [facility] CBC BLOOD Specimen Type: BLOOD No comment entered. 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 He had increased pain last night. Applied [...] massage. Pain: decreased, 7/10 to 5/10 Added Hi-Dis(Mosen) link to T[employer] educational video so can view with his . She will be helping with electrode placement. also plans to shave low back region [...] techniques, graded activity for aerobic exercise Update Hi-Dis(Mosen) HEP as indicated [Access Code: [email or web address]] Patient education was provided for all aspects of care during this clinical encounter. /monisha/ EUSEBAI LAWTON DPT PHYSICAL THERAPIST Signed: 04/19/2024 16:11 EUSEBIA LAWTON CNTL TRNaya [facility]
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
--- OUTSIDE RECORDS SUMMARY | 2024-11-06 17:35 | XMS_ITS | Encounter Summary ---
Author Name [facility] Organization [facility] [place] Address [address] [place] [id number] Care Team Providers Care Market Superintendent Name Role Phone MELBA DOE Primary Care [...] PART B Feb 24, 2020 PART B [id number] [phone] STAR DOUGHERTY JR PATIENT MEDICARE (WNR) MEDICARE (M) PART B Feb 24, 2020 PART B [id number] STAR DOUGHERTY JR PATIENT MEDICARE (WNR) MEDICARE (M) PART A November 24, 2019 PART A [id number] [phone] STAR DOUGHERTY JR PATIENT MEDICARE (WNR) MEDICARE (M) PART A November 24, 2019 PART A [id number] STAR DOUGHERTY JR 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 Date/Time Encounter Type Encounter Description Reason Provider Source May 10, 2024 03:45 PM THERAPEUTIC EXERCISES PAIN CLINIC ICD-10-CM M54.59 Other low back pain EUSEBIA STRICKLAND Carlin Encounter Template Text not used by [place] Assessments - Encounter Diagnoses This section includes the primary and secondary diagnoses documented for the Encounter. Date/Time Primary/Secondary Diagnosis Diagnosis Name Provider Source May 10, 2024 05:27 PM PRIMARY Other low back pain EUSEBIA LAWTON [place] [facility] [place] [facility] Plan of Treatment: Future Appointments (+ 6 months) and Future Tests (+/- 45 days) The Plan of Treatment section includes future care activities for the patient from all [place] treatmentfacilities. This section includes future appointments and [...] 17, 2024 01:45 PM AMBULATORY - MEDICINE [place] [facility] [place] [facility] May 22, 2024 10:30 AM AMBULATORY - PSYCHIATRY [place] [facility] [place] [facility] May 26, 2024 11:00 AM AMBULATORY - MEDICINE [place] [facility] [place] [facility] May 31, 2024 01:00 PM AMBULATORY - MEDICINE [place] [facility] [place] [facility] Jun 06, 2024 01:00 PM AMBULATORY - MEDICINE [place] [facility] [place] [facility] Jun 13, 2024 01:00 PM AMBULATORY - MEDICINE [place] [facility] [place] [facility] Jun 14, 2024 11:00 AM AMBULATORY - MEDICINE [place] [facility] [place] [facility] Jun 20, 2024 11:00 AM AMBULATORY - PSYCHIATRY [place] [facility] [place] [facility] Jun 20, 2024 01:00 PM AMBULATORY - MEDICINE [place] [facility] [place] [facility] Jun 27, 2024 01:00 PM AMBULATORY - MEDICINE [place] [facility] [place] [facility] Jul 04, 2024 01:00 PM AMBULATORY - MEDICINE [facility] [place] [facility] Jul 05, 2024 01:00 PM AMBULATORY - MEDICINE [facility] [place] [facility] Jul 10, 2024 08:30 AM AMBULATORY - MEDICINE [facility] [place] [facility] Jul 11, 2024 03:00 PM AMBULATORY - PSYCHIATRY [facility] [place] [facility] Jul 31, 2024 10:30 AM AMBULATORY - NONE [facility] [place] [facility] Aug 01, 2024 01:00 PM AMBULATORY - MEDICINE [facility] [place] [facility] Aug 08, 2024 01:00 PM AMBULATORY - MEDICINE [facility] [place] [facility] Aug 09, 2024 10:30 AM AMBULATORY - PSYCHIATRY [facility] [place] [facility] Aug 15, 2024 10:00 AM AMBULATORY - MEDICINE [place] [facility] [place] [facility] Aug 21, 2024 02:30 PM AMBULATORY - MEDICINE [place] [facility] [place] [facility] Social History: Smoking Status (Most [...] 04, 2021 02:56 PM VA-TOBACCO NEVER USED [place] [facility] [place] [facility] Encounter Notes: All associated encounter notes This section contains the clinical notes associated to the Encounter. Date/Time Encounter Note(s) Provider Source May 10, 2024 03:47 PM PHYSICAL THERAPY N OTE: LOCAL TITLE: PHYSICAL THERAPY STANDARD TITLE: PHYSICAL THERAPY NOTE DATE OF NOTE: MAY 10, 2024@15:47 ENTRY DATE: MAY 10, 2024@15:47:57 AUTHOR: EUSEBIA LAWTON COSIGNER: URGENCY: STATUS: COMPLETED [...] the drive, his family went to the [employer] [place] and he stayed behind with the dogs. [...] MINUTES: 5 Continue with HEP, Access Code: [email or web address]. Encouraged use of CALM chele and/or Alpha-Stim [...] techniques, graded activity for aerobic exercise Update [place] HEP as indicated [Access Code: [email or web address]] Patient education was provided for all aspects of care during this clinical encounter. /monisha/ EUSEBIA LAWTON DPT PHYSICAL THERAPIST Signed: 05/11/2024 08:20 EUSEBIA LAWTON [facility]
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
--- OUTSIDE RECORDS SUMMARY | 2024-11-06 17:35 | XMS_ITS ---
Author Name [facility] [facility] [place] Address [address] [place] [address] Care Team Providers Care Anesthesiologist Name Role Phone MELBA DOE Primary Care [...] PART B Feb 24, 2020 PART B [id number] STAR DOUGHERTY JR PATIENT MEDICARE (WNR) MEDICARE (M) PART B Feb 24, 2020 PART B [id number] STAR DOUGHERTY JR PATIENT MEDICARE (WNR) MEDICARE (M) PART A November 24, 2019 PART A [id number] [phone] STAR DOUGHERTY JR PATIENT MEDICARE (WNR) MEDICARE (M) PART A November 24, 2019 PART A [id number] STAR DOUGHERTY JR PATIENT 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 This section includes future appointments and [...] - MEDICINE [place] C [facility] [place] [facility] May 02, 2024 02:30 PM AMBULATORY - MEDICINE [place] C [facility] [place] [facility] May 03, 2024 03:00 PM AMBULATORY - MEDICINE [place] C [facility] [place] [facility] May 10, 2024 03:45 PM AMBULATORY - MEDICINE [place] C [facility] [place] [facility] May 17, 2024 01:45 PM AMBULATORY - MEDICINE [place] C [facility] [place] [facility] May 22, 2024 10:30 AM AMBULATORY - PSYCHIATRY [place] [facility] [place] [facility] May 26, 2024 11:00 AM AMBULATORY - MEDICINE [place] C [facility] [place] [facility] May 31, 2024 01:00 PM AMBULATORY - MEDICINE [place] C [facility] [place] [facility] Jun 06, 2024 01:00 PM AMBULATORY - MEDICINE [place] C [facility] [place] [facility] Jun 13, 2024 01:00 PM AMBULATORY - MEDICINE [place] C [facility] [place] [facility] Jun 14, 2024 11:00 AM AMBULATORY - MEDICINE [place] [facility] [place] [facility] Jun 20, 2024 11:00 AM AMBULATORY - PSYCHIATRY [place] [facility] [facility] Jun 20, 2024 01:00 PM AMBULATORY - MEDICINE [place] C [facility] [place] [facility] Jun 27, 2024 01:00 PM AMBULATORY - MEDICINE [place] C [facility] [place] [facility] Jul 04, 2024 01:00 PM AMBULATORY - MEDICINE [place] C [facility] [place] [facility] Jul 05, 2024 01:00 PM AMBULATORY - MEDICINE [place] C [facility] [place] [facility] Jul 10, 2024 08:30 AM AMBULATORY - MEDICINE [place] C [facility] [place] [facility] Jul 11, 2024 03:00 PM AMBULATORY - PSYCHIATRY [place] CN[facility] [facility] Jul 31, 2024 10:30 AM AMBULATORY - NONE [place] [facility]L [facility] [facility] Aug 01, 2024 01:00 PM AMBULATORY - MEDICINE [place] [facility] [place] [facility] [...] Type Comment Apr 05, 2024 09:14 [facility] LIPID PANEL FASTING SERUM Specimen Type: SERUM No comment entered. Ordering Provider: MELBA DOE Report Released Date/Time: Mar 29, 2024 09:37 AM Reporting Lab: [facility] [address] [facility] [address] Performing Lab: [facility] WSTRN [address] [address] CHOLESTEROL 167 mg/dL TRIGLYCERIDE 231 mg/dL H 0-150 LDL calculated 80 mg/dL 0-129 CHOL/HDL 4.1 HDL CHOLESTEROL 41 mg/dL 40-60 Apr 05, 2024 09:14 AM [facility] VITAMIN B12 SERUM Specimen Type: SERUM No comment entered. Ordering Provider: MELBA DOE Report Released Date/Time: Mar 29, 2024 09:37 AM Reporting Lab: [facility] [address] [facility] [address] Performing Lab: [address] [address] VITAMIN B12 500 pg/mL 200-900 Apr 05, 2024 09:14 AM [facility] TSH SERUM Specimen Type: SERUM No comment entered. Ordering Provider: MELBA DOE Report Released Date/Time: Mar 29, 2024 09:37 AM Reporting Lab: [facility] [address] [facility] [address] Performing Lab: [address] [address] TSH 1.38 u[IU]/mL 0.35-5.00 Apr 05, 2024 09:14 AM [facility] BASIC METABOLIC PANEL (fasting) SERUM Specime n Type: SERUM No comment entered. Ordering Provider: MELBA DOE Report Released Date/Time: Mar 29, 2024 09:37 AM Reporting Lab: [address] [address] Performing Lab: [address] [address] UREA NITROGEN 22 mg/dL 7-25 GLUCOSE 128 mg/dL H 65-100 SODIUM 140 mmol/L 135-145 POTASSIUM 4.2 mmol/L 3.5-5.0 CHLORIDE 103 mmol/L 100-110 CO2 26 meq/L 20-30 CREATININE, Serum 1.02 mg/dL 0.50-1.40 eGFR(CKD-EPI 2020) 80 mL/min >60 Apr 05, 2024 09:14 AM [facility] CBC BLOOD Specimen Type: BLOOD No comment entered. Ordering Provider: MELBA DOE Report Released Date/Time: Mar 29, 2024 09:37 AM Reporting Lab: [facility] [address] [facility] [address] Performing Lab: [facility] [address] [facility] [address] WBC 6.54 10*3/uL 4.50-11.00 RBC 4.83 10*6/uL [...] DATE: MAY 01, 2024@14:49:13 AUTHOR: EUSEBIA LAWTON EXP COSIGNER: URGENCY: STATUS: [...] a more regimented schedule for my exercises. Hu shares that he feels his hips are [...] MINUTES: 5 Continue with HEP, Access Code: [email or web address]. ED/TRAIN SELF-MGMT NONPHY MINUTES: ASSESSMENT: Ed p/w [...] techniques, graded activity for aerobic exercise Update Proviation HEP as indicated [Access Code: [email or web address]] Patient education was provided for all aspects of care during this clinical encounter. /monisha/ EUSEBIA LAWTON DPT PHYSICAL THERAPIST Signed: 05/02/2024 07:47 EUSEBIA LAWTON CNTRL [facility]
--- OUTSIDE RECORDS SUMMARY | 2024-11-06 17:35 | XMS_ITS | Encounter Summary ---
Author Name [facility] [place] Organization [place] Address [address] [place] [address] Care Team Providers Care Party Plan Selling Distributor Name Role Phone MELBA DOE Primary Care [...] PART B Feb 24, 2020 PART B [id number] [phone] STAR DOUGHERTY JR PATIENT MEDICARE (WNR) MEDICARE (M) PART B Feb 24, 2020 PART B [id number] LADONNA COLEMANSTAR PATIENT MEDICARE (WNR) MEDICARE (M) PART A November 24, 2019 PART A [id number] LADONNA COLEMANSTAR PATIENT MEDICARE (WNR) MEDICARE (M) PART A November 24, 2019 PART A [id number] [id number] DOUGHERTY STAR COLEMAN PATIENT 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 This section includes future appointments and future [...] - MEDICINE [place] [facility] May 01, 2024 02:45 PM AMBULATORY - MEDICINE [place] [facility] [place] [facility] May 02, 2024 02:00 PM AMBULATORY - MEDICINE [place] [facility] [place] [facility] May 02, 2024 02:30 PM AMBULATORY - MEDICINE [place] [facility] [place] [facility] May 03, 2024 03:00 PM AMBULATORY - MEDICINE [place] [facility] [place] [facility] May 10, 2024 03:45 PM AMBULATORY - MEDICINE [place] [facility] [place] [facility] May 17, 2024 01:45 PM AMBULATORY - MEDICINE [place] [facility] [place] [facility] May 22, 2024 10:30 AM AMBULATORY - PSYCHIATRY [place] [facility] [place] [facility] May 26, 2024 11:00 AM AMBULATORY - MEDICINE [place] [facility] [place] [facility] May 31, 2024 01:00 PM AMBULATORY - MEDICINE [place] [facility] [place] [facility] Jun 06, 2024 01:00 PM AMBULATORY - MEDICINE [place] [facility] [place] [facility] Jun 13, 2024 01:00 PM AMBULATORY - MEDICINE [place] C [facility] [place] [facility] Jun 14, 2024 11:00 AM AMBULATORY - MEDICINE [place] C [facility] [facility] Jun 20, 2024 11:00 AM AMBULATORY - PSYCHIATRY [place] [facility] [place] [facility] Jun 20, 2024 01:00 PM AMBULATORY - MEDICINE [place] C [facility] [place] [facility] Jun 27, 2024 01:00 PM AMBULATORY - MEDICINE [place] C N[facility] [place] [facility] Jul 04, 2024 01:00 PM AMBULATORY - MEDICINE [place] C NTRL [place] [facility] Jul 05, 2024 01:00 PM AMBULATORY - MEDICINE [place] C [facility] [place] [facility] Jul 10, 2024 08:30 AM AMBULATORY - MEDICINE [place] C [facility] [place] [facility] Jul 11, 2024 03:00 PM AMBULATORY - PS[facility]CHIATRY [place] [facility] Lab Results: +/- 30 days [...] Type Comment Apr 05, 2024 09:14 AM [facility] LIPID PANEL FASTING SERUM Specimen Type: SERUM No comment entered. Ordering Provider: MELBA DOE Report Released Date/Time: Mar 29, 2024 09:37 AM Reporting Lab: [facility] [address] [facility] [address] Performing Lab: [facility]N [facility] [address] [facility] [address] CHOLESTEROL 167 mg/dL TRIGLYCERIDE 231 mg/dL H 0-150 LDL calculated 80 mg/dL 0-129 CHOL/HDL 4.1 HDL CHOLESTEROL 41 mg/dL 40-60 Apr 05, 2024 09:14 AM [facility] VITAMIN B12 SERUM Specimen Type: SERUM No comment entered. Ordering Provider: MELBA DOE Report Released Date/Time: Mar 29, 2024 09:37 AM Reporting Lab: [facility] [address] [facility] [address] Performing Lab: [facility]ITAL[facility] [address] [facility] [address] VITAMIN B12 500 pg/mL 200-900 Apr 05, 2024 09:[address] [facility] TSH SERUM Specimen Type: SERUM No comment entered. Ordering Provider: MELBA DOE Report Released Date/Time: Mar 29, 2024 09:37 AM Reporting Lab: [facility] [address] [facility] [address] Performing Lab: [facility]ITALUSE[address] [address] TSH 1.38 u[IU]/mL 0.35-5.00 Apr 05, 2024 09:14 AM [facility]ITALUSE[facility]ONX[facility] BASIC METABOLIC PANEL (fasting) SERUM Specime n Type: SERUM No comment entered. Ordering Provider: MLEBA DOE Report Released Date/Time: Mar 29, 2024 09:37 AM Reporting Lab: [facility]ITALUSE[facility] [address] [facility] [address] Performing Lab: [facility]ITALUSE[address] [address] UREA NITROGEN 22 mg/dL 7-25 GLUCOSE 128 mg/dL H 65-100 SODIUM 140 mmol/L 135-145 POTASSIUM 4.2 mmol/L 3.5-5.0 CHLORIDE 103 mmol/L 100-110 CO2 26 meq/L 20-30 CREATININE, Serum 1.02 mg/dL 0.50-1.40 eGFR(CKD-EPI 2020) 80 mL/min >60 Apr 05, 2024 09:14 AM [facility] CBC BLOOD Specimen Type: BLOOD No comment entered. Ordering Provider: MELBA DOE Report Released Date/Time: Mar 29, 2024 09:37 AM Reporting Lab: [facility] [address] [facility] [address] Performing Lab: [address] [address] WBC 6.54 10*3/uL 4.50-11.00 RBC 4.83 10*6/uL [...] MAIL THANK YOU, JESSICA /monisha/ JESSICA SCOTT [employer] Signed: 04/24/2024 11:41 Receipt Acknowledged By: 04/24/2024 11:55 /monisha/ MELBA DOE D.O. PHYSICIAN 04/24/2024 14:24 /monisha/ KIMBERLY BARRAZA, RN REGISTERED NURSE JESSICA SCOTT [facility]
--- OUTSIDE RECORDS SUMMARY | 2024-11-06 17:35 | XMS_ITS | Encounter Summary ---
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 Date/Time Encounter Type Encounter Description Reason Provider Source Sep 14, 2024 10:30 AM OFFICE O/P EST MOD 30 MIN [facility] - IND ICD-10-CM F41.1 Generalized anxiety disorder TODD MOY [facility] Encounter Template Text not used by [place] Assessments - Encounter Diagnoses This section includes the primary and secondary diagnoses documented for the Encounter. Date/Time Primary/Secondary Diagnosis Diagnosis Name Provider Source Oct 02, 2024 11:57 AM PRIMARY Generalized anxiety disorder TODD MOY [place] [facility] [place] [facility] Oct 02, 2024 11:57 AM SECONDARY Adjustment disorder with mixed anxiety and depressed mood TODD MOY [place] [facility] [place] [facility] Plan of Treatment: Future Appointments (+ 6 months) and Future Tests (+/- 45 days) The Plan of Treatment section includes future care activities for the patient [facility] [place] [facility] This section includes future appointments and future orders which are active, pending or scheduled. Future Appointments This section includes appointments that were scheduled to occur 6 months from the date of the Encounter, up to a maximum of 20 appointments. The data comes from all [place] treatment facilities. Appointment Date/Time Appointment Type Appointme nt Facility Name Sep 18, 2024 11:30 AM AMBULATORY - MEDICINE [place] [facility] [place] [facility] Sep 18, 2024 11:31 AM AMBULATORY [place]ICINE [place] [facility] [place] [facility] Sep 19, 2024 02:30 PM AMBULATORY - MEDICINE [place] [facility] [place] [facility] Sep 22, 2024 09:00 AM AMBULATORY - PS[place]CHIATRY [place] [facility] [place] [facility] Sep 25, 2024 02:45 PM AMBULATORY - MEDICINE [place] [facility] [place] [facility] Sep 29, 2024 09:00 AM AMBULATORY - PS[place]CHIATRY [place] [facility] [place] [facility] Oct 03, 2024 01:00 PM AMBULATORY - REHAB MEDICIN E [place] [facility] [place] [facility] Oct 06, 2024 09:00 AM AMBULATORY - PSYCHIATRY [facility] [place] [facility] Oct 06, 2024 10:00 AM AMBULATORY - MEDICINE [facility] [place] [facility] Oct 09, 2024 02:00 PM AMBULATORY - REHAB MEDICIN E [facility] [place] [facility] Oct 16, 2024 02:00 PM AMBULATORY - PSYCHIATRY [facility] [place] [facility] Oct 18, 2024 01:00 PM AMBULATORY - REHAB MEDICIN E [facility] [place] [facility] Oct 20, 2024 09:00 AM AMBULATORY - PSYCHIATRY [facility] [place] [facility] Oct 23, 2024 02:00 PM AMBULATORY - PSYCHIATRY [facility] [place] [facility] Oct 27, 2024 10:30 AM AMBULATORY - PSYCHIATRY [facility] [place] [facility] Oct 30, 2024 02:00 PM AMBULATORY - PSYCHIATRY [facility] [place] [facility] Nov 09, 2024 01:30 PM AMBULATORY - MEDICINE [facility] [place] [facility] Nov 21, 2024 10:00 AM AMBULATORY - MEDICINE [facility] [place] [facility] November 27, 2024 02:00 PM AMBULATORY - PSYCHIATRY [facility] [place] [facility] December 04, 2024 10:30 AM AMBULATORY - PSYCHIATRY [facility] [place] [facility] Active, Pending, and Scheduled Orders This [...] Consult Order REHAB MEDI CINE/NHM OUTPT Cons Package Car Driver's Choice [place] [facility] [place] [facility] Oct 25, 2024 11:49 AM Consult Order TBI OPTOME TRY INPT Cons Package Car Driver's Choice [place] [facility] [place] [facility] Social History: Smoking Status (Most current) [...] 08:30 AM VA-TOBACCO NEVER U SED CIGARETTES [facility] Tobacco Use History This section includes a history of the smoking, or tobacco-related health factors, that were collected on or before the date of the Encounter. The data comes from the [place] facility where the Encounter took place. Date/Time Smoking Status/Tobacco Use Comment F acility Jul 10, 2024 08:30 AM [facility]TOBACCO NEVER [facility] SED [facility] Sep 04, 2021 02:56 PM VA-TOBACCO NEVER USED [facility] Encounter Notes: All associated encounter notes This section contains the clinical notes associated to the Encounter. Date/Time Encounter Note(s) Provider Source Sep 14, 2024 10:44 AM PRIMARY CARE NURSE PRACTITIONER OUTPATIENT NOTE: LOCAL TITLE: NURSE PRACTITIONER OUTPATIENT NOTE STANDARD TITLE: PRIMARY CARE NURSE PRACTITIONER OUTPATIENT NOTE DATE OF NOTE: SEP 14, 2024@10:44 ENTRY DATE: SEP 14, 2024@10:44:44 AUTHOR: YANCY MOY COSIGNER: URGENCY: STATUS: COMPLETED NURSE PRACTITIONER OUTPATIENT NOTE Has ADDENDA OUTPATIENT [facility]AL [facility] CLINIC: FOLLOW-UP HPI: STAR DOUGHERTY JR, a 68 y/o male previously diagnosed with Generalized Anxiety Disorder with Panic Attacks presents for [facility] Follow-Up appointment. Last seen by This Provider on 08/09/24 [place] reports mood as As far as my brain's going I'm fine. My anxiety is under control. Haven't used LORAZEPAM in interim since last appointment Reiterates I'm definitely in a better mode as far as the brain Medication adherence has decreased symptoms of anxiety. Still antsy and pacing around a lot Chronic pain symptoms continue to impact mood and sleep [place] speaks glowingly of AMP Group therapy and feels that this was of significant benefit for mood Has still been taking MIRTAZAPINE (which had been discontinued) because he was confused as to status of this medication; takes a full tablet (30 MG). Estimates that he's gained 8 lbs over the past 6 months with my stomach bulging being particularly noticeable. Feels that weight gain has stabilized and that this side effect is justified by benefits of MIRTAZAPINE Sleep's been good. Approximately 8 hours per night explicitly and convincingly denied SI, intent or plan and denied thoughts of harming others. SUBSTANCE USE: Tobacco: denied Alcohol: denied Narcotics: denied Cannabis: denied PREVIOUS PSYCHIATRIC HISTORY: Medication trials: lorazepam 0.5 mg PRN busPIRone 15 mg BID FLUoxetine 40 mg daily hydrOXYzine 25 mg (cannot remember taking this medication) sertraline (diarrhea) GABAPENTIN (INEFFECTIVE) PREGABILIN MIRTAZAPINE (weight gain) FAMILY MENTAL HEALTH AND SUBSTANCE USE HISTORY: [...] memory grossly intact to conversational testing Mood: fine Affect: mood congruent LABS AND STUDIES: REVIEWED [...] Allergy/ADR Data available for this patient [place] [facility] No Known Allergies MEDICATIONS: reviewed and [...] ONE-HALF TABLET BY MOUTH AT ACTIVE BEDTIME Indication: SLEEP Pending Outpatient Medications Status = 1) DICLOFENAC NA 1% TOP GEL APPLY 2 GRAMS TOPICALLY FOUR TIMES PENDING A DAY - USE DOSING CARD PROVIDED IN BOX Indication: FOR OSTEOARTHRITIS 12 Total Medications SAFETY ASSESSMENT: No acute safety concerns. Convincingly [...] desire to continue with current pharmacotherapy regimen. benefitted significantly from AMP Group Therapy and was strongly encouraged to consider another Group Therapy Consult. After discussion of several options expressed interest in Consult for '[facility]' No acute safety concerns Diagnosis: Generalized Anxiety Disorder w/ Panic Attacks Insomnia Disorder r/o PTSD PLAN: 1) CONTINUE LORAZEPAM 0.5 mg PO DAILY PRN 2) CONTINUE FLUoxetine 40 MG PO DAILY 3) CONTINUE BUSPIRONE 30 MG PO BID 4) REINITIATE MIRTAZAPINE 30 PO QHS 5) CONSULT FOR GROUP THERAPY Labs: none today Follow-Up: 10/27/24 Discussed risks and benefits of proposed medication treatments including FDA approved indications and off-label uses, as well as common and severe side effects. [place] comprehended all information discussed, had opportunity to ask questions which were answered to their satisfaction, and voluntarily and without duress agreed to trial as documented. CONTACT AND CRISIS INFO: informed that This Provider can be contacted at , [phone] or via Secure Messaging. 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 [...] MOY Psychiatric Mental Health Nurse Practitioner Signed: 09/16/2024 16:49 09/16/2024 ADDENDUM STATUS: COMPLETED also appears to meet diagnostic criteria for Adjustment Disorder with anxiety and depression secondary to coping with 's illness /iram MOY Psychiatric Mental Health Nurse Practitioner Signed: 09/16/2024 16:51 YANCY MOY [place] [facility]
--- OUTSIDE RECORDS SUMMARY | 2024-11-06 17:35 | XMS_ITS | Encounter Summary ---
Author Name [facility] [place] Organization [place] Address [address] [place] [address] Care Team Providers Care [employer] Media Specialist Name Role Phone MELBA DOE Primary [...] PART B Feb 24, 2020 PART B [id number] STAR DOUGHERTY JR PATIENT MEDICARE (WNR) MEDICARE (M) PART B Feb 24, 2020 PART B [id number] STAR DOUGHERTY JR PATIENT MEDICARE (WNR) MEDICARE (M) PART A November 24, 2019 PART A [id number] [phone] STAR DOUGHERTY JR PATIENT MEDICARE (WNR) MEDICARE (M) PART A November 24, 2019 PART A [id number] LADONNA COLEMAN EDLYNNE PATIENT 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 This section includes future appointments and [...] MEDICINE [place] [facility] [place] [facility] May 01, 2024 02:45 PM AMBULATORY - MEDICINE [place] [facility] [place] [facility] May 02, 2024 02:00 PM AMBULATORY - MEDICINE [place] [facility] [place] [facility] May 02, 2024 02:30 PM AMBULATORY - MEDICINE [place] [facility] [place] [facility] May 03, 2024 03:00 PM AMBULATORY - MEDICINE [place] [facility] [place] [facility] May 10, 2024 03:45 PM AMBULATORY - MEDICINE [place] [facility] [place] [facility] May 17, 2024 01:45 PM AMBULATORY - MEDICINE [place] [facility] [place] [facility] May 22, 2024 10:30 AM AMBULATORY - PSYCHIATRY [facility] [place] [facility] May 26, 2024 11:00 AM AMBULATORY - MEDICINE [place] [facility] [place] [facility] May 31, 2024 01:00 PM AMBULATORY - MEDICINE [place] [facility] [place] [facility] Jun 06, 2024 01:00 PM AMBULATORY - MEDICINE [place] [facility] [place] [facility] Jun 13, 2024 01:00 PM AMBULATORY - MEDICINE [place] [facility] [place] [facility] Jun 14, 2024 11:00 AM AMBULATORY - MEDICINE [place] [facility] [place] [facility] Jun 20, 2024 11:00 AM AMBULATORY - PSYCHIATRY [place] [facility] [place] [facility] Jun 20, 2024 01:00 PM AMBULATORY - MEDICINE [place] [facility] [place] [facility] Jun 27, 2024 01:00 PM AMBULATORY - MEDICINE [place] [facility] [place] [facility] Jul 04, 2024 01:00 PM AMBULATORY - MEDICINE [place] [facility] [place] [facility] Jul 05, 2024 01:00 PM AMBULATORY - MEDICINE [place] [facility] [place] [facility] Jul 10, 2024 08:30 AM AMBULATORY - MEDICINE [place] [facility] [place] [facility] Jul 11, 2024 03:00 PM AMBULATORY - [facility]IATRY [facility] Lab Results: +/- 30 days of [...] Type Comment Apr 05, 2024 09:14 AM [facility] LIPID PANEL FASTING SERUM Specimen Type: SERUM No comment entered. Ordering Provider: MELBA DOE Report Released Date/Time: Mar 29, 2024 09:37 AM Reporting Lab: [facility] [address] [address] Performing Lab: [facility] [address] [address] CHOLESTEROL 167 mg/dL TRIGLYCERIDE 231 mg/dL H 0-150 LDL calculated 80 mg/dL 0-129 CHOL/HDL 4.1 HDL CHOLESTEROL 41 mg/dL 40-60 Apr 05, 2024 09:14 AM [facility] BASIC METABOLIC PANEL (fasting) SERUM Specime n Type: SERUM No comment entered. Ordering Provider: MELBA DOE Report Released Date/Time: Mar 29, 2024 09:37 AM Reporting Lab: [facility] [address] [address] Performing Lab: [facility] [address] [facility] [address] UREA NITROGEN 22 mg/dL 7-25 GLUCOSE 128 mg/dL H 65-100 SODIUM 140 mmol/L 135-145 POTASSIUM 4.2 mmol/L 3.5-5.0 CHLORIDE 103 mmol/L 100-110 CO2 26 meq/L 20-30 CREATININE, Serum 1.02 mg/dL 0.50-1.40 eGFR(CKD-EPI 2020) 80 mL/min >60 Apr 05, 2024 09:14 AM [facility] VITAMIN B12 SERUM Specimen Type: SERUM No comment entered. Ordering Provider: MELBA DOE Report Released Date/Time: Mar 29, 2024 09:37 AM Reporting Lab: [facility] [address] [facility] [address] Performing Lab: [address] [address] VITAMIN B12 500 pg/mL 200-900 Apr 05, 2024 09:14 AM [facility] TSH SERUM Specimen Type: SERUM No comment entered. Ordering Provider: MELBA DOE Report Released Date/Time: Mar 29, 2024 09:37 AM Reporting Lab: [facility] [address] [facility] [address] Performing Lab: [address] [address] TSH 1.38 u[IU]/mL 0.35-5.00 Apr 05, 2024 09:14 AM [facility] CBC BLOOD Specimen Type: BLOOD No comment entered. Ordering Provider: MELBA DOE Report Released Date/Time: Mar 29, 2024 09:37 AM Reporting Lab: [address] [address] Performing Lab: [address] [address] WBC 6.54 10*3/uL 4.50-11.00 RBC 4.83 10*6/uL [...] 2024@13:46 ENTRY DATE: APR 24, 2024@13:46:33 AUTHOR: MRAILYN SANCHEZ EXP COSIGNER: URGENCY: STATUS: COMPLETED The provider spoke to the patient and obtained verbal consent for PHASER Testing. Provider educated the patient on purpose of pharmacogenomics testing andinstructions on how to obtain blood testing for PHASER at [facility]. Please ensure that the lab order has been entered for this patient. I will add an addendum to this consult once the PHASER results return (typically 7-14 days after the blood draw) /monisha/ Marilyn Sanchez, Pharm.D. Clinical Supervisor [employer] Signed: 04/24/2024 13:46 MARILYN SANCHEZ [facility]
--- OUTSIDE RECORDS SUMMARY | 2024-11-06 17:35 | XMS_ITS ---
Author Name [facility] [place] Organization [place] Address [address] [place] [address] Care Team Providers Care Central Office Supervisor Name Role Phone NADERNALLELY Primary Care Provider [...] PART B Feb 24, 2020 PART B [id number] [phone] STAR DOUGHERTY JR PATIENT MEDICARE (WNR) MEDICARE (M) PART B Feb 24, 2020 PART B [id number] STAR DOUGHERTY JR PATIENT MEDICARE (WNR) MEDICARE (M) PART A November 24, 2019 PART A [id number] STAR DOUGHERTY JR PATIENT MEDICARE (WNR) MEDICARE (M) PART A November 24, 2019 PART A [id number] STAR DOUGHERTY JR PATIENT OFFICE OF REGIONAL PEDIATRIC PATHOLOGIST NO-FAULT INSURANCE NO FAULT May 12, 2022 NO FAULT [id number] LADONNA STAR PATIENT FOR LIFE SUPPLEMEN QI TFL Feb 24, 2020 FOR LIFE [id number] ROSALES DOUGHERTY PATIENT FOR LIFE TFL* Feb 24, 2020 [id number] STAR DOUGHERTY JR PATIENT Selected Encounter This section includes the information on record at [place] for the Encounter. Date/Time Encounter Type Encounter Description Reason Provider Source Jan 18, 2024 08:00 AM MANUAL THERAPY 1/> [facility] DIETICIAN ICD-10-CM M54.2 Cervicalgia MICHAEL HERNANDEZ [place] Encounter Template Text not used by [place] Assessments - Encounter Diagnoses This section includes the primary and secondary diagnoses documented for the Encounter. Date/Time Primary/Secondary Diagnosis Diagnosis Name Provider Source Mar 20, 2024 07:07 AM PRIMARY Cervicalgia MICHAEL HERNANDEZ [place] [facility] [place] [facility] Mar 20, 2024 07:07 AM SECONDARY Other low back pain MICHAEL HERNANDEZ [place] [facility] [place] [facility] Mar 20, 2024 07:07 AM SECONDARY Pain in thoracic spine MICHAEL HERNANDEZ [place] [facility] [place] [facility] Plan of Treatment: Future Appointments (+ 6 months) and Future Tests (+/- 45 days) The Plan of Treatment section includes future care activities for the patient [facility] [place] [facility] This section includes future appointments [...] 19, 2024 08:30 AM AMBULATORY - PSYCHIATRY [place] [facility] [place] [facility] Jan 25, 2024 09:30 AM AMBULATORY - MEDICINE [place] [facility] [place] [facility] Feb 01, 2024 09:30 AM AMBULATORY - MEDICINE [place] [facility] [place] [facility] Feb 02, 2024 11:00 AM AMBULATORY - PSYCHIATRY [place] [facility] [place] [facility] Feb 02, 2024 12:30 PM AMBULATORY - MEDICINE [place] [facility] [place] [facility] Feb 10, 2024 11:15 AM AMBULATORY - REHAB MEDICIN E [place] [facility] [place] [facility] Feb 14, 2024 09:30 AM AMBULATORY - MEDICINE [place] [facility] [place] [facility] Feb 14, 2024 10:00 AM AMBULATORY - MEDICINE [place] [facility] [place] [facility] Mar 01, 2024 09:00 AM AMBULATORY - PSYCHIATRY [facility] [place] [facility] Mar 02, 2024 11:00 AM AMBULATORY - MEDICINE [place] [facility] [place] [facility] Mar 13, 2024 08:00 AM AMBULATORY - MEDICINE [place] [facility] [place] [facility] Mar 15, 2024 10:30 AM AMBULATORY - MEDICINE [place] [facility] [place] [facility] Mar 20, 2024 10:00 AM AMBULATORY - MEDICINE [place] [facility] [place] [facility] Mar 22, 2024 10:45 AM AMBULATORY - MEDICINE [place] [facility] [place] [facility] Mar 22, 2024 11:00 AM AMBULATORY - PSYCHIATRY [facility] [place] [facility] Mar 28, 2024 09:00 AM AMBULATORY - PSYCHIATRY [facility] [place] [facility] Mar 29, 2024 09:00 AM AMBULATORY - MEDICINE [facility] [place] [facility] Mar 30, 2024 09:00 AM AMBULATORY - MEDICINE [place] [facility] [place] [facility] Apr 12, 2024 11:00 AM AMBULATORY - MEDICINE [facility] [place] [facility] Apr 14, 2024 08:30 AM AMBULATORY - MEDICINE [place] [facility] [place] [facility] Active, Pending, and Scheduled Orders This [...] Order LIPID PANEL FASTING BLOOD (SST-SERUM) [facility] [place] [facility] Jan 06, 2024 12:00 AM Laboratory - Chemistry Order OCCULT BLOOD FIT X1 SCREEN(IN-HOUSE) STOOL FECES [facility] [place] [facility] Jan 19, 2024 12:00 AM Laboratory - Chemistry Order HEMOGLOBIN A1C PANEL BLOOD (LAV-BLOOD) [facility] Jan 19, 2024 12:00 AM Laboratory - Chemistry Order BASIC METABOLIC PANEL (non-fasting) BLOOD (SST-SERUM) [facility] Jan 19, 2024 12:00 AM Laboratory - Chemistry Order LIVER FUNCTION BLOOD (SST-SERUM) [facility] Jan 19, 2024 12:00 AM Laboratory - Chemistry Order TSH BLOOD (SST-SERUM) [facility] Jan 19, 2024 12:00 AM Laboratory - Chemistry Order CBC AND DIFF (AUTO) BLOOD (LAV-BLOOD) [facility] Jan 19, 2024 12:00 AM Laboratory - Chemistry Order LIPID PANEL, NON FASTING BLOOD (SST-SERUM) [facility] Social History: Smoking Status (Most current) [...] 04, 2021 02:56 PM VA-TOBACCO NEVER USED [facility] Encounter Notes: All associated encounter [...] SERVICE - OTHER OR NONE 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 Sx aggravated by driving to [place]. No N/T in UEs. He describes the [...] in am Prior treatment: Physical therapy at [facility]; deep tissue massage; [facility] spine.. neck therapy, massage; cortisone injections in low back R shoulder Prior care management associate - none Vet states that he has ignored the pain for quite a while. Exercise/Activities: none except yard work, stretching ; and going for a walk which is getting more difficult. He states that he is under a lot of stress. His is waiting for a liver transplant. Going to [place] for appts. Reviewed Radiologist's reports: none found [facility] MRI L/Sp Shoulder injury 1989 and [...] Signed: 01/18/2024 08:41 MICHAEL HERNANDEZ [facility]
--- OUTSIDE RECORDS SUMMARY | 2024-11-06 17:35 | XMS_ITS | Encounter Summary ---
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 Date/Time Encounter Type Encounter Description Reason Provider Source Aug 09, 2024 10:30 AM OFFICE O/P EST MOD 30 MIN [facility] CLINIC - IND ICD-10-CM F41.1 Generalized anxiety disorder TODD MOY [facility] Encounter Template Text not used by [place] Assessments - Encounter Diagnoses This section includes the primary and secondary diagnoses documented for the Encounter. Date/Time Primary/Secondary Diagnosis Diagnosis Name Provider Source Aug 29, 2024 03:43 PM PRIMARY Generalized anxiety disorder TODD MOY [place] [facility] Aug 29, 2024 03:43 PM SECONDARY Primary insomnia TODD MOY [place] [facility] Plan of Treatment: Future Appointments (+ 6 months) and Future Tests (+/- 45 days) The Plan of Treatment section includes future care activities for the patient [facility] This section includes future appointments and future orders which are active, pending or scheduled. Future Appointments This section includes appointments that were scheduled to occur 6 months from the date of the Encounter, up to a maximum of 20 appointments. The data comes from all [place] treatment facilities. Appointment Date/Time Appointment Type Appointme nt Facility Name Aug 15, 2024 10:00 AM AMBULATORY - MEDICINE [place] [facility] Aug 21, 2024 02:30 PM AMBULATORY - MEDICINE [place] [facility] Aug 29, 2024 09:30 AM AMBULATORY - MEDICINE [place] [facility] Aug 30, 2024 01:00 PM AMBULATORY - MEDICINE [place] [facility] Sep 12, 2024 01:45 PM AMBULATORY - MEDICINE [place] [facility] Sep 14, 2024 10:30 AM AMBULATORY - PSYCHIATRY [place] [facility] Sep 14, 2024 11:30 AM AMBULATORY - MEDICINE [place] [facility] Sep 18, 2024 11:30 AM AMBULATORY - MEDICINE [facility] Sep 18, 2024 11:31 AM AMBULATORY - MEDICINE [facility] Sep 19, 2024 02:30 PM AMBULATORY - MEDICINE [facility] Sep 22, 2024 09:00 AM AMBULATORY - PSYCHIATRY [facility] Sep 25, 2024 02:45 PM AMBULATORY - MEDICINE [facility] Sep 29, 2024 09:00 AM AMBULATORY - PSYCHIATRY [facility] Oct 03, 2024 01:00 PM AMBULATORY - REHAB MEDICIN E [facility] Oct 06, 2024 09:00 AM AMBULATORY - PSYCHIATRY [facility] Oct 06, 2024 10:00 AM AMBULATORY - MEDICINE [facility] Oct 09, 2024 02:00 PM AMBULATORY - REHAB MEDICIN E [facility] Oct 16, 2024 02:00 PM AMBULATORY - PSYCHIATRY [facility] Oct 18, 2024 01:00 PM AMBULATORY - REHAB MEDICIN E [facility] Oct 20, 2024 09:00 AM AMBULATORY - PSYCHIATRY [facility] Active, Pending, [...] Consult Order REHAB MEDI CINE/[facility] OUTPT Cons [employer] [facility] [place] [facility] Social History: Smoking Status (Most [...] 08:30 AM VA-TOBACCO NEVER U SED CIGARETTES [facility] Tobacco Use History This section includes a history of the smoking, or tobacco-related health factors, that were collected on or before the date of the Encounter. The data comes from the [place] facility where the Encounter took place. Date/Time Smoking Status/Tobacco Use Comment F acility Jul 10, 2024 08:30 AM VA-TOBACCO NEVER U SED OTHER TYPE [facility] Sep 04, 2021 02:56 PM VA-TOBACCO NEVER USED [facility] Encounter Notes: All associated encounter notes This section contains the clinical notes associated to the Encounter. Date/Time Encounter Note(s) Provider Source Aug 09, 2024 10:35 AM PRIMARY CARE NURSE PRACTITIONER OUTPATIENT NOTE: LOCAL TITLE: NURSE PRACTITIONER OUTPATIENT NOTE STANDARD TITLE: PRIMARY CARE NURSE PRACTITIONER OUTPATIENT NOTE DATE OF NOTE: AUG 09, 2024@10:35 ENTRY DATE: AUG 09, 2024@10:36:02 AUTHOR: YANCY MOY COSIGNER: URGENCY: STATUS: COMPLETED OUTPATIENT MENTAL HEALTH CLINIC: FOLLOW-UP HPI: STAR DOUGHERTY JR, a 68 y/o male previously diagnosed with Generalized Anxiety Disorder with Panic Attacks presents for [facility] Follow-Up appointment. Last seen by This Provider on 07/11/24 Reports mood as Pretty good, I guess and confirms that this is not just a figure of speech Agrees that mood has been better since last visit. Notes that AMP class has been especially beneficial and has contributed to better mood. My pain is not going away. I still have some real bad days but AMP program has been exceptionally beneficial in developing better tools to cope with the catastrophizing and despair that often accompany chronic pain Has also made a concerted effort to take his medications regularly, after having been lax about medication administration previously Biggest improvement is in the anxiety. Has noticed some weight gain. Has gained approximately 10 lbs since May and wonders if this could be as a result of the MIRTAZAPINE Pregabalin has not been refilled recently and confirms that he has not been taking this medication for some time. Denies auditory or visual hallucinations, paranoia or delusions. Ideas of reference, thought insertion, command hallucinations Denies any recent episodes of brissa/hypomania and specifically denies discrete episodes of increased energy, irritability, impulsivity and/or expansive affect lasting several days. John Day explicitly and convincingly denied SI, intent or [...] 09/04/2021November,BERTO Johnson Benign prostatic hyperplasia N40.1, 06/16/2023 FURMELBA GUADALUPE ALLERGIES: Data on this list may not be complete. Please check JLV. FACILITY ALLERGY/ADR -------- No Remote Allergy/ADR Data available for this patient [place] [facility] No Known Allergies MEDICATIONS: reviewed and updated in [facility] Active Outpatient Medications (including Supplies): Active Outpatient Medications Status 1) ACETAMINOPHEN 500MG TAB TAKE TWO TABLETS BY MOUTH THREE ACTIVE TIMES DAILY NEEDED Indication: FOR PAIN 2) ATORVASTATIN CALCIUM 40MG TAB TAKE ONE-HALF TABLET BY MOUTH ACTIVE ONCE DAILY Indication: FOR HIGH CHOLESTEROL 3) BISACODYL 5MG EC TAB TAKE FOUR TABLETS BY MOUTH ONE TIME FOR ACTIVE BOWELS - LAXATIVE 4) BUPRENORPHINE 5MCG/HR PATCH APPLY 1 PATCH TO SKIN EVERY 7 ACTIVE DAYS (REMOVE PATCH BEFORE APPLYING A NEW PATCH) Indication: FOR PAIN 5) BUSPIRONE HCL 30MG TAB TAKE ONE TABLET BY MOUTH TWICE DAILY ACTIVE Indication: FOR ANXIETY 6) CYCLOBENZAPRINE HCL 10MG TAB TAKE ONE TABLET BY MOUTH ONCE ACTIVE DAILY NEEDED Indication: FOR MUSCLE SPASM 7) DICLOFENAC NA 1% TOP GEL APPLY 2 GRAMS TOPICALLY FOUR TIMES ACTIVE A DAY - USE DOSING CARD PROVIDED IN BOX Indication: FOR OSTEOARTHRITIS 8) FLUOXETINE HCL 20MG CAP TAKE TWO CAPSULES BY MOUTH ONCE ACTIVE DAILY FOR DEPRESSION AND Indication: ANXIETY 9) LIDOCAINE 5% PATCH APPLY 1 PATCH TOPICALLY ONCE DAILY ACTIVE NEEDED (LEAVE PATCH ON FOR 12 HOURS, THEN REMOVE PATCH) Indication: FOR NERVE PAIN 10) LORAZEPAM 0.5MG TAB TAKE ONE TABLET BY MOUTH ONCE DAILY ACTIVE NEEDED Indication: ANXIETY 11) MELOXICAM 15MG TAB TAKE ONE TABLET BY MOUTH ONCE DAILY ACTIVE (TAKE WITH FOOD) Indication: FOR JOINT INFLAMMATION 12) MIRTAZAPINE 30MG TAB TAKE ONE TABLET BY MOUTH AT BEDTIME ACTIVE Indication: SLEEP 13) POLYETHYLENE GLYCOL 3350 ORAL PWDR TAKE CONTENTS OF BOTTLE ACTIVE BY MOUTH ONCE DIRECTED [MIX WITH 4 TO 8OZ. OF BEVERAGE] 14) PREGABALIN 100MG ORAL CAP TAKE ONE CAPSULE [...] treatment and demonstration of help-seeking behaviors. IMPRESSION: John Day presents as polite, cooperative and treatment motivated Reports adherence to current medications with significant therapeutic benefit and denies side effects. Reports desire to continue with current pharmacotherapy regimen. confirmed that he has not been taking pregabalin and agreed that this medication should be discontinued. Also expressed a preference for titrating mirtazapine to discontinuation as this medication appears to have resulted in significant weight gain. Advised to monitor for rebound symptoms of insomnia, anxiety or depression No acute safety concerns Diagnosis: Generalized Anxiety Disorder w/ Panic Attacks Insomnia Disorder r/o PTSD PLAN: 1) CONTINUE LORAZEPAM 0.5 mg PO DAILY PRN 2) CONTINUE FLUoxetine 40 MG PO DAILY 3) CONTINUE BUSPIRONE 30 MG PO BID 4) DISCONTINUE PREGABILIN 50 TO 100 MG PO BID PRN 5) DECREASE MIRTAZAPINE FROM 30 TO 15 MG PO QHS FOR 14 DAYS THEN DISCONTINUE Labs: none today Follow-Up: 09/14/24 Discussed risks and benefits of proposed medication treatments including FDA approved indications and off-label uses, as well as common and severe side effects. comprehended all information discussed, had opportunity to ask questions which were answered to their satisfaction, and voluntarily and without duress agreed to trial as documented. CONTACT AND CRISIS INFO: informed that This Provider can be contacted at , EXT [phone] or via Secure Messaging. 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 [...] of active outpatient prescriptions dispensed from this [place] (local) and dispensed from another [facility] or [...] MOY Psychiatric Mental Health Nurse Practitioner Signed: 08/09/2024 16:35 YANCY MOY [place] [facility]
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
--- OUTSIDE RECORDS SUMMARY | 2024-11-06 17:35 | XMS_ITS | Encounter Summary ---
Author Name [facility] [place] Organization [place] Address [address] [place] [id number] Care Team Providers Care Physician Executive Name Role Phone MELBA DOE Primary Care [...] PART B Feb 24, 2020 PART B [id number] STAR DOUGHERTY JR PATIENT MEDICARE (WNR) MEDICARE (M) PART B Feb 24, 2020 PART B [id number] STAR DOUGHERTY JR PATIENT MEDICARE (WNR) MEDICARE (M) PART A November 24, 2019 PART A [id number] STAR DOUGHERTY JR PATIENT MEDICARE (WNR) MEDICARE (M) PART A November 24, 2019 PART A [id number] STAR DOUGHERTY JR PATIENT OFFICE OF REGIONAL RESIDENTIAL LIFE DIRECTOR NO-FAULT INSURANCE NO FAULT May 12, 2022 NO FAULT [id number] [phone] STAR DOUGHERTY JR PATIENT FOR LIFE SUPPLEMEN QI TFL Feb 24, 2020 FOR LIFE [id number] ROSALES DOUGHERTY PATIENT FOR LIFE TFL* Feb 24, 2020 [id number] 14 STAR DOUGHERTY JR PATIENT Selected Encounter This section includes the information on record at [place] for the Encounter. Date/Time Encounter Type Encounter Description Reason Provider Source December 09, 2023 01:30 PM OFF/OP EST NOVEMBER X REQ PHY/QHP PRIMARY CARE/MEDICINE ICD-10-CM Z71.9 Counseling, unspecified PRASANNA MULLIGAN SA IHE Encounter Template Text not used by [place] Assessments - Encounter Diagnoses This section includes the primary and secondary diagnoses documented for the Encounter. Date/Time Primary/Secondary Diagnosis Diagnosis Name Provider Source Mar 20, 2024 09:59 AM PRIMARY Counseling, unspecified PRASANNA MULLIGAN SA [place] [facility] [place] [facility] Plan of Treatment: Future Appointments (+ 6 months) and Future Tests (+/- 45 days) The Plan of Treatment section includes future care activities for the [facility] [place] [facility] This section includes future appointments [...] 14, 2023 10:30 AM AMBULATORY - MEDICINE [place] [facility] [place] [facility] December 14, 2023 01:00 PM AMBULATORY - MEDICINE [place] [facility] [place] [facility] December 16, 2023 08:30 AM AMBULATORY - MEDICINE DC [facility] [place] [facility] Dec 28, 2023 11:00 AM AMBULATORY - MEDICINE DC [facility] [place] [facility] Dec 29, 2023 10:00 AM AMBULATORY - MEDICINE DC [facility] [place] [facility] Dec 29, 2023 11:00 AM AMBULATORY - MEDICINE DC [facility] [place] [facility] Jan 06, 2024 02:30 PM AMBULATORY - MEDICINE DC [facility] [place] [facility] Jan 06, 2024 03:45 PM AMBULATORY - MEDICINE [place] [facility] [place] [facility] Jan 14, 2024 12:45 PM AMBULATORY - MEDICINE [facility] [place] [facility] Jan 18, 2024 08:00 AM AMBULATORY - MEDICINE [facility] [place] [facility] Jan 19, 2024 08:30 AM AMBULATORY - PSYCHIATRY [facility] [place] [facility] Jan 25, 2024 09:30 AM AMBULATORY - MEDICINE [facility] [place] [facility] Feb 01, 2024 09:30 AM AMBULATORY - MEDICINE [facility] [place] [facility] Feb 02, 2024 11:00 AM AMBULATORY - PSYCHIATRY [facility] [place] [facility] Feb 02, 2024 12:30 PM AMBULATORY - MEDICINE [facility] [place] [facility] Feb 10, 2024 11:15 AM AMBULATORY - [...] FASTING BLOOD (SST-SERUM) SP [facility] [place] [facility] Jan 06, 2024 12:00 AM Laboratory - Chemistry Order OCCULT BLOOD FIT X1 SCREEN(IN-HOUSE) STOOL FECES SP [facility] [place] [facility] Jan 19, 2024 12:00 AM Laboratory - Chemistry Order HEMOGLOBIN A1C PANEL BLOOD (LAV-BLOOD) SP [facility] [place] [facility] Jan 19, 2024 12:00 AM Laboratory - Chemistry Order BASIC METABOLIC PANEL (non-fasting) BLOOD (SST-SERUM) [facility] Jan 19, 2024 12:00 AM Laboratory - Chemistry Order TSH BLOOD (SST-SERUM) [facility] Jan 19, 2024 12:00 AM Laboratory - Chemistry Order LIVER FUNCTION BLOOD (SST-SERUM) [facility] Jan 19, 2024 12:00 AM Laboratory - Chemistry Order LIPID PANEL, NON FASTING BLOOD (SST-SERUM) [facility] Jan 19, 2024 12:00 AM Laboratory - Chemistry Order CBC AND DIFF (AUTO) BLOOD (LAV-BLOOD) [facility] Vital Signs: All taken on the encounter date This section contains inpatient and outpatient Vital Signs collected on the date of the Encounter. Date/Time Temperature Pulse Blood Pressure Respiratory Rate SP02 Pain Height Weight Body Mass Index Source December 09, 2023 01:44 PM 135/86 [facility] December 09, 2023 01:37 PM 97.7 76 16 96 2 [facility] Social History: Smoking Status (Most current) [...] identity was verified using two identifiers, per [place] Policy: Full Name, Date of STAR DOUGHERTY is a 68 year old who presents to the clinic for Tick bite per MELBA DOE for diagnosis of: Visit Type: Clinic Unscheduled Recent went to [facility] urgent care after Tick bite was prescibed [...] this can be accurately recorded in their [place] medical record. Tdap Immunization: The patient declines [...] he has received -states previous provider was [facility]. Request to bring records of immunization to PCP appointment /es/ SADIA MULLIGAN REGISTERED NURSE Signed: 12/09/2023 13:57 SADIA MULLIGAN [place] [facility]
--- OUTSIDE RECORDS SUMMARY | 2024-11-06 17:35 | XMS_ITS | Encounter Summary ---
Author Name [facility] [place] [facility] [place] Address [address] [place] [address] Care Team Providers Care Card Tape Converter Operator Name Role Phone NADERMELBA Primary Care [...] PART B Feb 24, 2020 PART B [id number] LADONNA COLEMANSTAR PATIENT MEDICARE (WNR) MEDICARE (M) PART B Feb 24, 2020 PART B [id number] STAR DOUGHERTY JR PATIENT MEDICARE (WNR) MEDICARE (M) PART A November 24, 2019 PART A [id number] LADONNA COLEMANSTAR PATIENT MEDICARE (WNR) MEDICARE (M) PART A November 24, 2019 PART A [id number] STAR DOUGHERTY JR PATIENT OFFICE OF REGIONAL CABLE ENGINEER NO-FAULT INSURANCE NO FAULT May 12, 2022 NO FAULT [id number] STAR DOUGHERTY JR PATIENT FOR LIFE SUPPLEMEN QI TFL Feb 24, 2020 FOR LIFE [id number] ROSALES DOUGHERTY PATIENT FOR LIFE TFL* Feb 24, 2020 [id number] STAR DOUGHERTY JR PATIENT Selected Encounter This section includes the information on record at [place] for the Encounter. Date/Time Encounter Type Encounter Description Reason Pro vider Source IHE Encounter Template Text not used by [facility]
--- OUTSIDE RECORDS SUMMARY | 2024-11-06 17:35 | XMS_ITS ---
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 Date/Time Encounter Type Encounter Description Reason Provider Source Aug 01, 2024 01:00 PM EDU&TRN PT [facility] ICD-10-CM G89.4 Chronic pain syndrome YAMILE ROJAS [place] Encounter Template Text not used by [place] Assessments - Encounter Diagnoses This section includes the primary and secondary diagnoses documented for the Encounter. Date/Time Primary/Secondary Diagnosis Diagnosis Name Provider Source Aug 01, 2024 03:24 PM PRIMARY Chronic pain syndrome YAMILE ROJAS [place] [facility] [place] [facility] Plan of Treatment: Future Appointments (+ 6 months) and Future Tests (+/- 45 days) The Plan of Treatment section includes future care activities for the [facility] [place] [facility] This section includes future appointments and future orders which are active, pending or scheduled. Future Appointments This section includes appointments that were scheduled to occur 6 months from the date of the Encounter, up to a maximum of 20 appointments. The data comes from all [place] treatment facilities. Appointment Date/Time Appointment Type Appointme nt Facility Name Aug 08, 2024 01:00 PM AMBULATORY - MEDICINE [facility] [place] [facility] Aug 09, 2024 10:30 AM AMBULATORY - PSYCHIATRY IN [facility] [place] [facility] Aug 15, 2024 10:00 AM AMBULATORY - MEDICINE IN C [facility] [place] [facility] Aug 21, 2024 02:30 PM AMBULATORY - MEDICINE IN C [facility] [place] [facility] Aug 29, 2024 09:30 AM AMBULATORY - MEDICINE IN C [facility] [place] [facility] Aug 30, 2024 01:00 PM AMBULATORY - MEDICINE IN C [facility] [place] [facility] Sep 12, 2024 01:45 PM AMBULATORY - MEDICINE IN C [facility] [place] [facility] Sep 14, 2024 10:30 AM AMBULATORY - PSYCHIATRY [place] [facility] [place] [facility] Sep 14, 2024 11:30 AM [facility] [place] [facility] Sep 18, 2024 11:30 AM AMBULATORY - MEDICINE [facility] [place] [facility] Sep 18, 2024 11:31 AM AMBULATORY [facility] MEDICINE [facility] [place] [facility] Sep 19, 2024 02:30 PM AMBULATORY - MEDICINE [facility] [place] [facility] Sep 22, 2024 09:00 AM AMBULATORY - PSYCHIATRY [facility] [place] [facility] Sep 25, 2024 02:45 PM AMBULATORY - MEDICINE [facility] [place] [facility] Sep 29, 2024 09:00 AM AMBULATORY - PSYCHIATRY [facility] [place] [facility] Oct 03, 2024 01:00 PM AMBULATORY - REHAB MEDICIN [facility] [place] [facility] Oct 06, 2024 09:00 AM AMBULATORY - PSYCHIATRY [facility] [place] [facility] Oct 06, 2024 10:00 AM AMBULATORY - MEDICINE [facility] [place] [facility] Oct 09, 2024 02:00 PM AMBULATORY - REHAB MEDICIN E [facility] [place] [facility] Oct 16, 2024 02:00 PM AMBULATORY - PSYCHIATRY [facility] [place] [facility] Active, Pending, and Scheduled Orders [...] Order REHAB MEDI CINE/[facility] OUTPT Cons Materials Planning Analyst's Choice IN [facility] [place] [facility] Lab Results: +/- 30 days [...] Type Comment Jul 04, 2024 07:55 AM [facility] METHADONE SCREEN URINE Specimen Type: URINE Comment: NATO test are qualitative, any L or H flags only indicate a [place] alert was sent. Ordering Provider: CESAR LOYA Report Released Date/Time: Apr 20, 2024 08:58 AM Reporting Lab: [address] [address] Performing Lab: [facility] [address] [facility] [address] METHADONE SCREEN None detected(Negative) L Negative Jul [...] 20, 2024 08:58 AM Reporting Lab: [address] [address] Performing Lab: [address] [address] ALCOHOL, ETHYL URINE NONE-DETECTED mg/dL NONE-DETECTED, cutoff [...] 20, 2024 08:58 AM Reporting Lab: [address] [address] Performing Lab: [address] [address] AMPHETAMINES SCREEN NONE-DETECTED None-D etected, Cutoff = [...] 20, 2024 08:58 AM Reporting Lab: [address] [address] Performing Lab: [address] [address] FENTANYL SCREEN NONE-DETECTED ng/mL Nega tive: Cutoff [...] 20, 2024 08:58 AM Reporting Lab: [address] [address] Performing Lab: [address] [address] BENZODIAZEPINES SCREEN NONE-DETECTED Non e-Detected, Cutoff = [...] 20, 2024 08:58 AM Reporting Lab: [address] [address] Performing Lab: [address] [address] BUPRENORPHINE (URINE) NONE-DETECTED None Detected, Cutoff = 10.0 ng/mL PH, NATO 5.4 [pH] 4-10 CREATININE, NATO 123.15 mg/dL >20 SP.GRAVITY, NATO 1.026 H 1.003-1.020 Jul 04, 2024 07:55 AM [facility] CANNABINOIDS SCREEN PANEL URINE Specimen Type [...] 20, 2024 08:58 AM Reporting Lab: [address] [address] Performing Lab: [address] [address] CANNABINOIDS SCREEN NONE-DETECTED None-D etected,Cutoff = 50 [...] 20, 2024 08:58 AM Reporting Lab: [address] [address] Performing Lab: [address] [address] COCAINE SCREEN NONE-DETECTED None-Detect ed,Cutoff = 300 ng/mL PH, NATO 5.4 [pH] 4-10 CREATININE, NATO 123.15 mg/dL >20 SP.GRAVITY, NATO 1.026 H 1.003-1.020 Jul 04, 2024 07:55 AM [facility] OPIATES SCREEN PANEL URINE Specimen Type: [...] 20, 2024 08:58 AM Reporting Lab: [address] [address] Performing Lab: [address] [address] OPIATES SCREEN NONE-DETECTED None-Detect ed, Cutoff = [...] 20, 2024 08:58 AM Reporting Lab: [address] [address] Performing Lab: [address] [address] OXYCODONE SCREEN NONE-DETECTED None-Dete cted, Cutoff = 100 ng/mL PH, NATO 5.4 [pH] 4-10 CREATININE, NATO 123.15 mg/dL >20 SP.GRAVITY, NATO 1.026 H 1.003-1.020 Jul 04, 2024 07:51 AM [facility] [id number] PGx BLOOD Specimen Type: BLOOD Comment: [place] [id number] Ordering Provider: YANCY MOY Report Released Date/Time: Apr 24, 2024 12:11 PM Reporting Lab: [facility] [address] [facility] [address] Performing Lab: [facility] [address] [facility] [address] [id number] PGx comment Jul 04, 2024 07:51 AM [facility] LIVER FUNCTION SERUM Specimen Type: SERUM No comment entered. Ordering Provider: MELBA DOE Report Released Date/Time: Jan 06, 2024 03:34 PM Reporting Lab: [facility] [address] [facility] [address] Performing Lab: [address] [address] PROTEIN,TOTAL 6.8 g/dL 6.0-8.3 ALBUMIN 4.2 g/dL 3.5-5.0 ALKALINE PHOSPHATASE 84 U/L 40-150 AST 19 U/L 5-34 ALT 27 U/L BILIRUBIN, TOTAL 0.3 mg/dL 0.2-1.2 Jul 04, 2024 07:51 AM [facility] BASIC METABOLIC PANEL (fasting) SERUM Specime n Type: SERUM No comment entered. Ordering Provider: MELBA DOE Report Released Date/Time: Jan 06, 2024 03:34 PM Reporting Lab: [address] [address] Performing Lab: [address] [address] UREA NITROGEN 13 mg/dL 7-25 GLUCOSE 123 mg/dL H 65-100 SODIUM 138 mmol/L 135-145 POTASSIUM 4.7 mmol/L 3.5-5.0 CHLORIDE 103 mmol/L 100-110 CO2 27 meq/L 20-30 CREATININE, Serum 0.93 mg/dL 0.50-1.40 eGFR(CKD-EPI 2020) 89 mL/min >60 Jul 04, 2024 07:51 AM [facility] CBC BLOOD Specimen Type: BLOOD No comment entered. Ordering Provider: MELBA DOE Report Released Date/Time: Jan 06, 2024 03:34 PM Reporting Lab: [facility] [address] [facility] [address] Performing Lab: [facility] [address] [facility] [address] WBC 6.85 10*3/uL 4.50-11.00 RBC 4.76 10*6/uL [...] Facil ity Jul 10, 2024 08:30 AM IN-TOBACCO NEVER U SED CIGARETTES [facility] Tobacco Use History This section includes a history of the smoking, or tobacco-related health factors, that were collected on or before the date of the Encounter. The data comes from the [place] facility where the Encounter took place. Date/Time Smoking Status/Tobacco Use Comment F acility Jul 10, 2024 08:30 AM [facility] NEVER U SED OTHER [facility] Sep 04, 2021 02:56 PM VA-TOBACCO NEVER USED [facility] Encounter Notes: All associated encounter notes This section contains the clinical notes associated to the Encounter. Date/Time Encounter Note(s) Provider Source Aug 01, 2024 03:16 PM PHYSICAL THERAPY NOTE: LOCAL TITLE: ACTIVEMP INTERDISCIPLINARY SESSION NOTE STANDARD TITLE: PHYSICAL THERAPY NOTE DATE OF NOTE: AUG 01, 2024@15:16 ENTRY DATE: AUG 01, 2024@15:16:47 AUTHOR: YAMILE ROJAS EXP COSIGNER: URGENCY: STATUS: COMPLETED ACTIVEMP INTERDISCIPLINARY SESSION NOTE Has ADDENDA AMP Interdisciplinary Group Parent Note: Session 7 AMP Provider/s facilitating todays session: Psychologist: Yamile [...] participant. Prior to the AMP program this [place] confirmed their willingness and interest in participating in this small group, interdisciplinary, pain self-management program. This [place] has acknowledged awareness and acceptance of: 1. The privacy restraints regarding participation in small group sessions. 2. The need for respectful behavior toward other participants and providers. 3. The need to focus discussion to specific topics discussed during the session. 4. The limitations to individualization of care during sessions. [place] informed that individualized breakout sessions can be provided as deemed necessary by the AMP provider or as requested by the [place]. Number of Veterans in attendance for today session: 5 Summary of Session 7: Behavioral Health and Physical Therapy providers co-facilitated this AMP session. Session started with a guided activity focused on bringing awareness to their thoughts, feelings, and sensations (Leaves on a Stream). Content from the previous week was reviewed and time was spent discussing home practice, including their efforts, observations, and needs. The topic of Effective Communication was introduced and skills to promote effective interactions with loved ones and healthcare providers were presented. Facilitators also discussed the topic of anger in the context of effective communication and provided skills to manage this emotion effectively: (1) Practice awareness of physical changes, (2) Practice awareness of thoughts, (3) Practice awareness of feelings, (4) Use humor. A 3-step skill process to promote effective communication with healthcare providers was also discussed in this session: (1) [place] Setting, (2) Communicating YOUR goals, and (3) Asking Specific Questions; participants engaged in role-play and practiced ways to integrate these skills during future appointments. The topic of Self-Compassion was also discussed; the main elements of self-compassion were presented and strategies to promote this approach, particularly during difficult interpersonal interactions was underscored. The latter portion of this session focused on discussing guidelines for safe and successful balance and strength training. Provided education on what balance entails as well as tips to promote balance. A practice focused on balance was guided; participants were encouraged to use the Transformation Zone to assess their experience. Similarly, provided education on strength and strengthening exercises. Discussed the importance of the Modify, Repeat, Progress, and Explore approach and also discussed the 20-repetition rule. Exercises to promote strength were guided and participants were encouraged to use the Transformation Zone to assess their experience. Session ended with a review of take-home points and home practice expectations, including assigned worksheets. Plan: to follow up for session 8 of the AMP program. Further details regarding this session can be found in the attached notes for each discipline. /monisha/ YAMILE ROJAS, PH.D. CLINICAL HEALTH PSYCHOLOGIST Signed: 08/01/2024 15:24 08/01/2024 ADDENDUM STATUS: COMPLETED [facility] Behavioral Health Session Note AMP Interdisciplinary Group Session: 7 ======== Please see the session summary portion of [facility] Interdisciplinary Parent Note for details describing the content, strategies, and skills taught during today session. Assessment/Plan: [No] Did the confirm completion (showed worksheets, returned, or verbally) of the home practice work sheets from the previous session? If applicable, please describe the barriers the [place] communicated to completing the previous sessions worksheets: [Yes] was an active participant and provided relevant and on topic contributions during todays session. [Yes] The suicide and homicide risk were determined to be low for this [place] during todays session. [Yes] No other acute psychological distress was observed for this [place] during todays session. [Yes] Continue with AMP upcoming treatment sessions. [Yes] Additional actions/recommendations are needed for this participating : was offered a make up session to review content from Session 6 of AMP. /monisha/ YAMILE ROJAS, PH.D. CLINICAL HEALTH PSYCHOLOGIST Signed: 08/01/2024 15:43 08/01/2024 ADDENDUM STATUS: COMPLETED Physical Therapy Note AMP Interdisciplinary Group Session: 7 ======== Please see the session summary portion of today AMP Interdisciplinary Note for details describing the content, strategies, and skills taught during today session. Assessment/Plan: [NO] Did the [place] require any suggestions for modifications from the AMP PT to specific skills/strategies performed as part of their home practice since last session? If yes, please describe: [NO] Did specific issues of concern or barriers to participation regarding this [place] come up during todays session? If yes, these concerns are detailed here: [YES] This [place] verbalized and/or demonstrated understanding in the content, strategies, and skills as described in the session summary portion of this sessions AMP Interdisciplinary Note. [YES] This [place] verbalized understanding of expected home practice to be performed between todays session and the next AMP session. [X] Continue with AMP upcoming treatment sessions. [X] Additional comments: Ed missed the last session (#6), he's aware that a make-up session can be provided if he wishes to pursue. Ed reported that he finds himself walking away when he's frustrated or angry in order to avoid losing his temper. He agreed that this can lead to his needs being unmet. He actively trialed balance and strength exercises in group today. He asked how often he should perform the exercises and if it was alright to use a different color tband for his right side. /monisha/ EUSEBIA LAWTON DPT PHYSICAL THERAPIST Signed: 08/01/2024 17:18 YAMILE ROJAS [facility] [place] [facility]
--- OUTSIDE RECORDS SUMMARY | 2024-11-06 17:35 | XMS_ITS | Encounter Summary ---
Author Name [facility] [place] [facility] Address [address] [place] [id number] Care Team Providers Care Credit Collections Specialist Name Role Phone NADERMELBA Primary Care [...] PART B Feb 24, 2020 PART B [id number] LADONNA COLEMANSTAR PATIENT MEDICARE (WNR) MEDICARE (M) PART B Feb 24, 2020 PART B [id number] [phone] [id number] STAR DOUGHERTY JR PATIENT MEDICARE (WNR) MEDICARE (M) PART A November 24, 2019 PART A [id number] LADONNA COLEMANSTAR PATIENT MEDICARE (WNR) MEDICARE (M) PART A November 24, 2019 PART A [id number] STAR DOUGHERTY JR PATIENT OFFICE OF REGIONAL COIL WINDER STRAP NO-FAULT INSURANCE NO FAULT May 12, 2022 NO FAULT [id number] STAR DOUGHERTY JR PATIENT FOR LIFE SUPPLEMEN QI TFL Feb 24, 2020 FOR LIFE [id number] ROSALES DOUGHERTY PATIENT FOR LIFE TFL* Feb 24, 2020 [id number] STAR DOUGHERTY JR PATIENT Selected Encounter This section includes the information on record at [facility] for [place] En[place]. Date/Time Encounter Type Encounter Description Reason Pro vider Source IHE Encounter Template Text not used by [facility]
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
--- OUTSIDE RECORDS SUMMARY | 2024-11-06 17:35 | XMS_ITS ---
Author Name [facility] [place] Organization [facility] Affairs [place] Address [address] [place] [id number] Care Team Providers Care Gas Meter Checker Name Role Phone NADERMELBA Primary Care [...] PART B Feb 24, 2020 PART B [id number] STAR DOUGHERTY JR PATIENT MEDICARE (WNR) MEDICARE (M) PART B Feb 24, 2020 PART B [id number] STAR DOUGHERTY JR PATIENT MEDICARE (WNR) MEDICARE (M) PART A November 24, 2019 PART A [id number] STAR DOUGHERTY JR PATIENT MEDICARE (WNR) MEDICARE (M) PART A November 24, 2019 PART A [id number] [id number] [phone] STAR DOUGHERTY JR PATIENT OFFICE OF REGIONAL STEEL ENGRAVER NO-FAULT INSURANCE NO FAULT May 12, 2022 NO FAULT [id number] STAR DOUGHERTY JR PATIENT FOR LIFE SUPPLEMEN QI TFL Feb 24, 2020 FOR LIFE [id number] 14 ROSALES DOUGHERTY PATIENT FOR LIFE TFL* Feb 24, 2020 [id number] 14 STAR DOUGHERTY JR PATIENT Selected Encounter This section includes the information on record at [place] for the Encounter. Date/Time Encounter Type Encounter Description Reason Provider Source May 31, 2024 01:00 PM SELF CARE MNGMENT TRAINING PAIN CLINIC ICD-10-CM M54.59 Other low back pain MARYAMEUSEBIA [facility] Encounter Template Text not used by [place] Assessments - Encounter Diagnoses This section includes the primary and secondary diagnoses documented for the Encounter. Date/Time Primary/Secondary Diagnosis Diagnosis Name Provider Source May 31, 2024 05:45 PM PRIMARY Other low back pain EUSEBIA LAWTON [place] [facility] [place] [facility] Plan of Treatment: Future Appointments (+ 6 months) and Future Tests (+/- 45 days) The Plan of Treatment section includes future care activities for the patient from all [place] [facility]. This section includes future appointments [...] - MEDICINE [place] C NTRL [facility] [facility] Jun 13, 2024 01:00 PM AMBULATORY - MEDICINE [place] C [place] [place] [facility] Jun 14, 2024 11:00 AM AMBULATORY - MEDICINE [place] C [facility] [place] [facility] Jun 20, 2024 11:00 AM AMBULATORY - PSYCHIATRY [place] [facility] [place] [facility] Jun 20, 2024 01:00 PM AMBULATORY - MEDICINE [place] C [facility] [place] [facility] Jun 27, 2024 01:00 PM AMBULATORY - MEDICINE [place] C [facility] [place] [facility] Jul 04, 2024 01:00 PM AMBULATORY - MEDICINE [place] C [facility] [place] [facility] Jul 05, 2024 01:00 PM AMBULATORY - MEDICINE [place] [facility] [place] [facility] [...] NTRL [facility] [place] [facility] Aug 08, 2024 01:00 PM AMBULATORY - MEDICINE [place] C [facility] [place] [facility] Aug 09, 2024 10:30 AM AMBULATORY - PSYCHIATRY [place] [facility] [place] [facility] Aug 15, 2024 10:00 AM AMBULATORY - MEDICINE [place] C [facility] [place] [facility] Aug 21, 2024 02:30 PM AMBULATORY - MEDICINE [place] C [facility] [place] [facility] Aug 29, 2024 09:30 AM AMBULATORY - MEDICINE [place] C [facility] [place] [facility] Aug 30, 2024 01:00 PM AMBULATORY - MEDICINE [place] C [facility] [place] [facility] Sep 12, 2024 01:45 PM AMBULATORY - MEDICINE [place] C [facility] [place] [facility] Sep 14, 2024 10:30 AM AMBULATORY - PSYCHIATRY [place] [facility] [place] [facility] Social History: Smoking Status (Most current) [...] 04, 2021 02:56 PM VA-TOBACCO NEVER USED [place] CNTRL [facility] [place] [facility] Encounter Notes: All associated encounter notes [...] will begin AMP group next week, this teletypewriter operator is hopeful additional PNE will prove beneficial. [...] techniques, graded activity for aerobic exercise Update [employer] HEP as indicated [Access Code: [email or web address]] Patient education was provided for all aspects of care during this clinical encounter. /monisha/ EUSEBIA LAWTON DPT PHYSICAL THERAPIST Signed: 06/01/2024 23:09 EUSEBIA LAWTON CNTRL [facility]
--- OUTSIDE RECORDS SUMMARY | 2024-11-06 17:35 | XMS_ITS | Encounter Summary ---
Author Name [facility] [place] [facility] Address [address] [place] [id number] Care Team Providers Care Stove Carriage Operator Name Role Phone MELBA DOE Primary [...] PART B Feb 24, 2020 PART B [id number] [phone] STAR DOUGHERTY JR PATIENT MEDICARE (WNR) MEDICARE (M) PART B Feb 24, 2020 PART B [id number] [phone] STAR DOUGHERTY JR PATIENT MEDICARE (WNR) MEDICARE (M) PART A November 24, 2019 PART A [id number] [phone] STAR DOUGHERTY JR PATIENT MEDICARE (WNR) MEDICARE (M) PART A November 24, 2019 PART A [id number] STAR DOUGHERTY JR PATIENT OFFICE OF REGIONAL GLUE LINE OPERATOR NO-FAULT INSURANCE NO FAULT May 12, 2022 NO FAULT [id number] [phone] LADONNA TONYLYNNE PATIENT FOR LIFE SUPPLEMEN QI TFL Feb 24, 2020 FOR LIFE [id number] ROSALES DOUGHERTY PATIENT FOR LIFE TFL* Feb 24, 2020 [id number] 14 STAR DOUGHERTY JR PATIENT Selected Encounter This section includes the information on record at [place] for the Encounter. Date/Time Encounter Type Encounter Description Reason Provider Source Aug 30, 2024 01:00 PM THERAPEUTIC EXERCISES PAIN CLINIC ICD-10-CM M54.59 Other low back pain LEIGHANNEUSEBIA Carlin Encounter Template Text not used by [place] Assessments - Encounter Diagnoses This section includes the primary and secondary diagnoses documented for the Encounter. Date/Time Primary/Secondary Diagnosis Diagnosis Name Provider Source Aug 30, 2024 05:17 PM PRIMARY Other low back pain EUSEBIA LAWTON [place] [facility] [facility] [place] [facility] Plan of Treatment: Future Appointments (+ [...] Appointment Type Appointme nt Facility Name Sep 12, 2024 01:45 PM AMBULATORY - MEDICINE [place] C N[facility] [place] [facility] Sep 14, 2024 10:30 AM AMBULATORY - PSYCHIATRY [place] [facility] [place] [facility] Sep 14, 2024 11:30 AM AMBULATORY - MEDICINE [place] C [facility] [place] [facility] Sep 18, 2024 11:30 AM AMBULATORY - MEDICINE [place] C [facility] [facility] Sep 18, 2024 11:31 AM AMBULATORY - MEDICINE [place] C N[facility] [facility] Sep 19, 2024 02:30 PM AMBULATORY - MEDICINE [place] C [facility] [place] [facility] Sep 22, 2024 09:00 AM AMBULATORY - PSYCHIATRY [place] [facility] [place] [facility] Sep 25, 2024 02:45 PM AMBULATORY - MEDICINE [place] C [facility] [place] [facility] Sep 29, 2024 09:00 AM AMBULATORY - PSYCHIATRY [place] [facility] [place] [facility] Oct 03, 2024 01:00 PM AMBULATORY - REHAB MEDICIN E [place] [facility] [place] [facility] Oct 06, 2024 09:00 AM AMBULATORY - PSYCHIATRY [place] [facility] [place] [facility] Oct 06, 2024 10:00 AM AMBULATORY - MEDICINE [place] C [facility] [place] [facility] Oct 09, 2024 02:00 PM AMBULATORY - REHAB MEDICIN E [place] [facility] [facility] Oct 16, 2024 02:00 PM AMBULATORY - PSYCHIATRY [place] [facility] [place] [facility] Oct 18, 2024 01:00 PM AMBULATORY - REHAB MEDICIN E [place] [facility] [place] [facility] Oct 20, 2024 09:00 AM AMBULATORY - PSYCHIATRY [place] [facility] [place] [facility] Oct 23, 2024 02:00 PM AMBULATORY - PSYCHIATRY [place] [facility] [place] [facility] Oct 27, 2024 10:30 AM AMBULATORY - PSYCHIATRY [place] [facility] [place] [facility] Oct 30, 2024 02:00 PM AMBULATORY - PSYCHIATRY [place] [facility] [place] [facility] Nov 09, 2024 01:30 PM AMBULATORY - MEDICINE [place] C NTRL [facility] [facility] Active, Pending, and Scheduled Orders This [...] Consult Order REHAB MEDI CINE/[facility] OUTPT Cons D[employer] [place] [facility] [facility] [facility] Social History: Smoking Status (Most current) [...] 08:30 AM VA-TOBACCO NEVER U SED [facility]ETTES [facility] Tobacco Use History This section includes a history of the smoking, or tobacco-related health factors, that were collected on or before the date of the Encounter. The data comes from the [place] facility where the Encounter took place. Date/Time Smoking Status/Tobacco Use Comment F acility Jul 10, 2024 08:30 AM VA-TOBACCO NEVER U SED OTHER [facility] Sep 04, 2021 02:56 PM VA-TOBACCO [facility] Encounter Notes: All associated encounter notes This section contains the clinical notes associated to the Encounter. Date/Time Encounter Note(s) Provider Source Aug 30, 2024 08:42 AM PHYSICAL THERAPY N OTE: [facility] TITLE: PHYSICAL THERAPY STANDARD TITLE: PHYSICAL THERAPY NOTE DATE OF NOTE: AUG 30, 2024@08:42 ENTRY DATE: AUG 30, 2024@08:42:52 AUTHOR: EUSEBIA LAWTON EXP COSIGNER: URGENCY: STATUS: COMPLETED Initial Evaluation date: 02/10/2024 Progress Note: 05/17/24 Treatment #: 14 Treatment time: 45 Diagnosis: Other low back [...] surgical precautions etc.) SUBJECTIVE: Ed shares that he went for a walk earlier today. He's been using a heated rice pack on his neck a few times per week. His chief complaint is stiffness and reduced ability to turn while driving. Response from previous session: tolerated well, no c/o increased pain Pain, verbal numeric scale 0-10: 4-5/10 HEP Adherence: []None []1-2x/wk [x]3-4x/wk []5-6x/wk []Daily *Continues to work on his HEP *Likes the supine exercises for his low back OBJECTIVE: THERAPEUTIC EXERCISE: MINUTES: 45 Nustep, L1 x 10, SPM 48 Supine with occipital float, HOB elevated -cervical rotations -nodding: yes, no, maybe -cervical retraction, 3-5s holds as tolerated Supine, pec stretches -cues DB'ing; difficulty relaxing Supine, UT stretch w/active reaching through fingertips -cues DB'ing UE horizantal abd/add (90/90 position), x 10 reps -difficulty coordinating motion, moderate stretch mid-back with c/o increased neck discomfort UE abd, scapular plane to 90 degrees x 10 reps -increased discomfort, facial grimacing Rhomboid stretch -cues to relax UT's, deep breathing Seated reverse shoulder circles -verbal cues, difficulty coordinating Diagphragmatic breathing, cues relaxation UQ MANUAL THERAPY: MINUTES: GAIT TRAINING: MINUTES: NEUROMUSCULAR EDUCATION: MINUTES: OTHER: MINUTES: MODALITIES: MINUTES: [] Contraindication screen completed prior to modality [] Skin intact pre/post SELF CARE/EDUCATION: MINUTES: -- Encouraged Ed to use heated rice pack x10 minutes followed by gentle cervical ROM at least 3x/day. He will monitor for any reduction in stiffness. ED/TRAIN SELF-MGMT NONPHY MINUTES: ASSESSMENT: Ed p/w apprehension, muscle guarding, and facial grimacing throughout therex today. This documentation writer offered modifications, cues, and encouraged him to stay within his transformation zone. He continues to have difficulty relaxing and has a tendency to hold his breath. Upper quarter motor control and coordination are also reduced. Ed is engaged during sessions and continues to ask relevant questions about his condition. He is performing his home program a few times per week and does not wish to make any changes to it at this time. PLAN: Continue with plan of care and updated HEP as prescribed. Interventions to include: Manual therapy (PRN): stm, MET's, myofascial release Aerobic exercise: continue to encourage, reinforce AMP guidance Therex: gentle progressive core, cervical stabilization, postural therex, diaphragmatic breathing; mindful stretching, self trigger point release Education: PNE, posture, ergo, bodymechanics, relaxation techniques, graded activity for aerobic exercise Update [email or web address] HEP as indicated [Access Code: [email or web address]] Patient education was provided for all aspects of care during this clinical encounter. /monisha/ EUSEBIA LAWTON DPT PHYSICAL THERAPIST Signed: 08/31/2024 07:37 EUSEBIA LAWTON CNTRL [facility]
--- OUTSIDE RECORDS SUMMARY | 2024-11-06 17:35 | XMS_ITS | Encounter Summary ---
Author Name [facility] ([place]) Organization [facility] [place] [place] Address [address] [place] [id number] Care Team Providers Care Cook Short Order Name Role Phone NADER MELBA Primary Care [...] PART B Feb 24, 2020 PART B [id number] [phone] STAR DOUGHERTY JR PATIENT MEDICARE (WNR) MEDICARE (M) PART B Feb 24, 2020 PART B [id number] DOUGHERTY STAR PATIENT MEDICARE (WNR) MEDICARE (M) PART A November 24, 2019 PART A [id number] [phone] DOUGHERTY STAR PATIENT MEDICARE (WNR) MEDICARE (M) PART A November 24, 2019 PART A [id number] [phone] LADONNA COLEMAN EDLYNNE PATIENT OFFICE OF REGIONAL LDR NURSE NO-FAULT INSURANCE NO FAULT May 12, 2022 NO FAULT [id number] LADONNA COLEMANSTAR PATIENT FOR LIFE SUPPLEMEN QI TFL Feb 24, 2020 FOR LIFE [id number] ROSALES DOUGHERTY PATIENT FOR LIFE TFL* Feb 24, 2020 [id number] STAR DOUGHERTY JR PATIENT Selected Encounter This section includes the information on record at MD for the Encounter. Date/Time Encounter Type Encounter Description Reason Provider Source May 22, 2024 10:30 AM OFFICE O/P EST MOD 30 MIN MENTAL HEALTH CLINIC - IND ICD-10-CM F41.1 Generalized anxiety disorder TODD STILL [facility] Encounter Template Text not used by MD Assessments - Encounter Diagnoses This section includes the primary and secondary diagnoses documented for the Encounter. Date/Time Primary/Secondary Diagnosis Diagnosis Name Provider Source May 22, 2024 11:10 AM PRIMARY Generalized anxiety disorder TODD STILL [place] [facility] [place] [facility] May 22, 2024 11:10 AM SECONDARY Oth sleep disord not due to a sub or known physiol cond TODD STILL MD [facility] [place] [facility] Plan of Treatment: Future Appointments (+ 6 months) and Future Tests (+/- 45 days) The Plan of Treatment section includes future care activities for the patient from all [facility]. This section includes future appointments and [...] 26, 2024 11:00 AM AMBULATORY - MEDICINE MD C [facility] [place] [facility] May 31, 2024 01:00 PM AMBULATORY - MEDICINE MD C [facility] [place] [facility] Jun 06, 2024 01:00 PM AMBULATORY - MEDICINE MD C [facility] [place] [facility] Jun 13, 2024 01:00 PM AMBULATORY - MEDICINE MD C [facility] [place] [facility] Jun 14, 2024 11:00 AM AMBULATORY - MEDICINE MD [facility] [place] [facility] Jun 20, 2024 11:00 AM AMBULATORY - PSYCHIATRY MD [facility] [place] [facility] [...] [facility] [place] [facility] Aug 15, 2024 10:00 AM AMBULATORY - MEDICINE [facility] [place] [facility] Aug 21, 2024 02:30 PM AMBULATORY - MEDICINE [facility] [place] [facility] Aug 29, 2024 09:30 AM AMBULATORY - MEDICINE [facility] [place] [facility] Aug 30, 2024 01:00 PM AMBULATORY - MEDICINE VA [facility] [place] [facility] Social History: Smoking [...] VA-TOBACCO NEVER USED [facility] [place] [facility] Encounter Notes: All associated encounter notes This section contains the clinical notes associated to the Encounter. Date/Time Encounter Note(s) Provider Source May 22, 2024 10:41 AM ACCOUNTING OF DISCLOSURES NOTE: LOCAL TITLE: STATE PRESCRIPTION DRUG MONITORING PROGRAM STANDARD TITLE: ACCOUNTING OF DISCLOSURES NOTE DATE OF NOTE: MAY 22, 2024@10:41:38 ENTRY DATE: MAY 22, 2024@10:41:38 AUTHOR: JOSE F STILL EXP COSIGNER: URGENCY: STATUS: COMPLETED This PDMP query was submitted by Jose F Still. The clinical justification for this PDMP query is to review controlled substances prescribed outside of the [facility], and any additional information that may become available, as an important component of standard clinical care, and in accordance with [facility] policy. Patient information was shared with the PDMP Appriss [place]. No prescription(s) for controlled substances outside the [facility] were found in the last 90 days. /monisha/ JOSE F STILL Psychiatric Mental Health Nurse Practitioner Signed: 05/22/2024 10:41 JOSE F STILL MD [facility] [place] [facility] May 22, 2024 10:34 AM PRIMARY CARE NURSE PRACTITIONER OUTPATIENT NOTE: LOCAL TITLE: NURSE PRACTITIONER OUTPATIENT NOTE STANDARD TITLE: PRIMARY CARE NURSE PRACTITIONER OUTPATIENT NOTE DATE OF NOTE: MAY 22, 2024@10:34 ENTRY DATE: MAY 22, 2024@10:34:58 AUTHOR: JOSE F STILL EXP COSIGNER: URGENCY: STATUS: COMPLETED OUTPATIENT MENTAL HEALTH CLINIC: FOLLOW-UP HPI: STAR DOUGHERTY JR, a 68 y/o male previously diagnosed with Generalized Anxiety Disorder with Panic Attacks presents for [facility] Follow-Up appointment. Last seen by This Provider on 04/24/24 When asked about mood [place] references Typical back, shoulder and neck pain [...] started the buprenorphine for pain; daughter, a director pharmacy services, had expressed concern about his being prescribed an 'opioid.' was strongly encouraged to give this medication a try or relay concerns to Dr. Shafer if he was not going to. [place] hoping that might be eligible for a liver transplant at [facility] after being told by Tremaine that she [...] Onset 09/04/2021NovemberBERTO Benign prostatic hyperplasia N40.1, 06/16/2023 FURMELBA GUADALUPE ALLERGIES: Data on this list may not be complete. Please check JLV. FACILITY ALLERGY/ADR -------- No Remote Allergy/ADR Data available for this patient [facility] [place] [facility] No Known Allergies [...] presents as polite, cooperative and treatment motivated [place] was reminded of pending lab orders necessary before pharmacogenetic testing can take place. Discussed adding pregabalin to better address symptoms of anxiety. Discussed side effects of pregabalin and [place] was advised as to increased risk of respiratory depression, sedation, impaired coordination, increased fall risk and impaired cognition. Advised not to use while driving or operating machinery. Also advised of risk for dependence and advised not to combine with non- prescribed SENIOR OCCUPATIONAL THERAPIST depressants PDMP and chart review do suggest [...] well as common and severe side effects. [place] comprehended all information discussed, had opportunity to ask questions which were answered to their satisfaction, and voluntarily and without duress agreed to trial as documented. CONTACT AND CRISIS INFO: [place] informed that This Provider can be contacted at , EXT [phone] or via Secure Messaging. 

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
[2024-11-07 08:56] VITALS: BMI 25.9
[2024-11-07 09:05] VITALS: BP 120/73; PULSE 81; RESP 16; TEMP 36.7; O2SAT 98
--- NOTE | 2024-11-07 09:55 | MHC.SHP ---
Pre-Procedural Eval Section A - 24 Hr Update-Section A only Date of Service: 11/07/24 Section B - Complete if H&P > 30 days Chief Complaint: screening Relevant Family History (Specify if Yes): No Relevant Social History: None Present Medications: see Short Stay Collaborative assessment Medical History: Significant History (Anxiety disorder Chronic back pain Prostate atrophy Hernia of abdominal wall Hyperlipidemia) History of Previous Operations: Relevant previous surgery/procedure and date(s) (H/O colonoscopy (~2017) Vasectomy status) Allergies: Allergies Allergy/AdvReac Type Severity Reaction Status Date / Time No Known Allergies Allergy Verified 07/31/24 10:01 Review of Systems Sugical H&P ROS: Negative: Constitution, Cardiovascular, Respiratory, Neurological, Psychiatric, Hem-Onc, Allergic/Immunologic, Gastrointestinal, Genitourinary, Musculoskeletal, Integumentary, Endocrine and Eyes/Ears/Nose/Throat Exam Surgical H&P Exam: Normal: HEENT, Normal: Heart, Normal: Lungs, Normal: Extremities, Normal: Abdomen, Normal: Skin and Normal: Neurological Plan Diagnosis/Plan: Unchanged I have reviewed the history and physical and performed a pertinent physical examination on my patient. No changes have occurred unless specified. Time Spent With Patient Time: Total time managing care of this patient today ____ minutes.
--- NOTE | 2024-11-07 10:56 | HO.ANESPROP2 ---
HPI - Anesthesia Eval Consult details Narrative: 68 m for colon PMFSH Past Medical History Medical History Anxiety disorder Chronic back pain Prostate atrophy Hernia of abdominal wall Hyperlipidemia Family History Family history of problems with anesthesia: No Surgical History Surgical History H/O colonoscopy (~2017) Vasectomy status History of Problems with Anesthesia: No Social History Social History Patient Tobacco Use Status: Never used Tobacco Second Hand Smoke Exposure: No Use of substances other than those prescribed or required for medical reasons: No Have you been hit, kicked, punched, or otherwise hurt by someone within the past year? If so, by whom?: No Are you DNR?: No Advance Directives: No Advance Directives Information Provided: Yes Advance Directives on File: No Poor oral hygiene: No Meds Allergies Allergy/AdvReac Type Severity Reaction Status Date / Time No Known Allergies Allergy Verified 07/31/24 10:01 Active Medications: Current Medications Lactated Ringer's (Lr) 1,000 mls @ 80 mls/hr IVCONT .[id number] YUVAL Home Medications ?Medication ?Instructions ?Recorded ?Confirmed ?Last Taken ?Type atorvastatin 40 mg tablet 40 mg PO DAILY 07/31/24 11/07/24 11/06/24 History buspirone 15 mg tablet 15 mg PO BID 07/31/24 11/07/24 11/06/24 History cyclobenzaprine 10 mg tablet 10 mg PO BEDTIME 07/31/24 11/07/24 11/06/24 History diclofenac sodium 1 % topical gel 1 ea topical DAILY 07/31/24 11/07/24 11/06/24 History fluoxetine 20 mg capsule 60 mg PO QAM 07/31/24 11/07/24 11/06/24 History gabapentin 600 mg tablet 600 mg PO DAILY 07/31/24 11/07/24 11/06/24 History lidocaine 5 % topical patch 1 patch topical DAILY 07/31/24 11/07/24 11/06/24 History lorazepam 0.5 mg tablet 0.5 mg PO DAILY 07/31/24 11/07/24 11/06/24 History meloxicam 15 mg tablet 15 mg PO DAILY 07/31/24 11/07/24 11/06/24 History quetiapine 100 mg tablet 100 mg PO BEDTIME 07/31/24 11/07/24 11/06/24 History Exam Height,Weight and Vital Signs: Height 5 ft 10 in Weight 180 lb 12.465 oz Last Vital Signs Temp 98.0 F 11/07/24 09:05 Pulse 81 11/07/24 09:05 Resp 16 11/07/24 09:05 BP 120/73 11/07/24 09:05 Pulse Ox 98 11/07/24 09:05 O2 Del Method Room Air 11/07/24 09:05 Airway Mallampati Class: II TM Dist: >3cm Neck ROM: Full Loose/Missing/Broken Teeth: No Assessment and Plan Assessment Anesthesia Assessment: Anesthesia Plan Discussed and Chart Reviewed Final Anesthetic Review Family History of Problems with Anesthesia: No History of Problems with Anesthesia: No NPO: Yes ASA Class: II Final Preanesthetic Review: No Changes in Pt Med Stat, Meds/Allgs Chart Reviewed, Consent Obtained/Reviewed and Anes Risks/Benef Reviewed Patient Risk: Low Procedure Risk: Low Anesthetic Plan Anesthetic Plan: MAC: Disposition: Standard PACU
--- NOTE | 2024-11-07 11:03 | P.OPN-COLO_ITS ---
Colonoscopy Operative Note Operative Note Date of Service: 11/07/24 Narrative: Operative Information Procedure Description: Colonoscopy Indication: screening Anesthesia: MAC COLONOSCOPY Instrument: Olympus variable stiffness pediatric scope 190L Colonoscopy Monitoring: Vital signs and clinical assessment, continuous EKG monitoring, Pulse oximetry, Carbon Dioxide monitoring and blood pressure monitoring were done throughout the procedure. Colon withdrawal time was 12 minutes. Procedure: The patient was placed in the left lateral decubitis position and pre-procedure medications were administered. After a digital rectal examination of the ano-rectum, the video colonoscope was inserted into the rectum and advanced through the colon to the cecum/TI. The colonoscope was slowly withdrawn in a retrograde panoramic fashion and the colon mucosa was carefully examined including a retroflexed view of the rectum. Findings and interventions are described below. Procedure Difficulty: easy Findings: Terminal Ileum-normal Cecum:normal Right sided retroflexion- normal Ascending Colon: normal Transverse Colon -normal Descending Colon: 4-5 mm sessile polyp removed with cold forceps Sigmoid Colon: normal Rectum: Retroflexion with small internal hemorrhoids seen, grade I, 7-8 mm sessile polyp removed with cold snare Anorectum - normal Intervention: cold snare, cold forceps Colon preparation: [place] Bowel Preparation Scale Right colon; 2 Transverse colon: 2 Left colon; 2 (0 = Unprepared colon segment with mucosa not seen due to solid stool that cannot be cleared. 1 = Portion of mucosa of the colon segment seen, but other areas of the colon segment not well seen due to staining, residual stool and/or opaque liquid. 2 = Minor amount of residual staining, small fragments of stool and/or opaque liquid, but mucosa of colon segment seen well. 3 = Entire mucosa of colon segment seen well with no residual staining, small fragments of stool or opaque liquid) Impression and Post Procedure Diagnosis: colon polyps x 2 internal hemorrhoids Plan: High fiber diet leaflet Avoid straining at stool, epsom salts and sitz bath, anusol supps or cream Repeat Colonoscopy in 5 years due to polyps or earlier if clinically indicated Above findings were reviewed with the patient and relevant handouts were provided if indicated.
[2024-11-07 11:10] VITALS: BP 112/70; PULSE 69; RESP 18; TEMP 36.4; O2SAT 95
[2024-11-07 11:25] VITALS: BP 131/88; PULSE 70; RESP 18; O2SAT 97
[2024-11-07 11:36] VITALS: BP 137/78; PULSE 72; RESP 18; TEMP 36.6; O2SAT 97
== END 2024-11-07 11:46 | disposition home or self-care (01) ==
PROVIDERS: Visit Provider Internal Medicine Gastroenterology
PROC: 0DJD8ZZ Inspection of Lower Intestinal Tract, Via Natural or Artificial Opening Endoscopic (ICD-10-PCS; CPT 45378; principal; 2024-11-07 11:50)
DX: Z12.11 Encounter for screening for malignant neoplasm of colon (principal); K63.5 Polyp of colon; K62.1 Rectal polyp; K64.0 First degree hemorrhoids; N42.89 Other specified disorders of prostate; G89.29 Other chronic pain; M54.9 Dorsalgia, unspecified; K43.9 Ventral hernia without obstruction or gangrene; E78.5 Hyperlipidemia, unspecified; F41.9 Anxiety disorder, unspecified; Z79.899 Other long term (current) drug therapy; Z98.52 Vasectomy status
CPT/HCPCS: 45385; 45380; 88305; J2704

== ENCOUNTER → 2024-11-07 08:45 | Outpatient (BNV) | payer MEDICARE, OTHER, SELFPAY | PROVIDERS: Visit Provider Internal Medicine Gastroenterology | DX: Z12.11 Encounter for screening for malignant neoplasm of colon (principal); K63.5 Polyp of colon; K62.1 Rectal polyp; K64.0 First degree hemorrhoids | CPT/HCPCS: 45380; 45385 ==